=== PATIENT | female | born 1975 | race Caucasian/White ===

== ENCOUNTER 2017-12-01 18:09 | Inpatient (IN) | payer MEDICARE, MEDICAID ==
[2017-12-01] MEDS ORDERED: Ondansetron INJ* 2 MG/ML VIAL ONE (20:44)
[2017-12-01] MEDS ORDERED: Morphine INJ* 2 MG/ML 1 ML SYRINGE (TWO MG - NEW SYRINGE VERSION) ONE (20:45)
[2017-12-01] MEDS: Morphine INJ* 2 MG/ML 1 ML CARPUJECT IV ONE ×2 (20:48→21:22)
[2017-12-01] MEDS: Ondansetron INJ* 2 MG/ML VIAL IV ONE (20:48)
[2017-12-01 20:52] LABS: ABS Basophils 0.1 10^3/ul (0-0.2); ABS Eosinophils 0 10^3/ul (0-0.6); ABS Lymphocytes 1.3 10^3/ul (1.0-4.8); ABS Monocytes 0.8 10^3/ul (0-0.8); ABS Nucleated RBC 0 10^3/ul; Eosinophil % 0.3 % (0-6); Hematocrit 30 % (35-47); Hemoglobin 9.3 g/dl (12.0-16.0); Lymphocyte % 10.4 % (25-47); Mean Corpuscular HGB Conc 31 g/dl (31-36); Mean Corpuscular Hemoglobin 23 pg (27-31); Mean Corpuscular Volume 75 fL (80-97); Mean Platelet Volume 8 um3 (7.4-10.4); Nucleated Red Blood Cells % 0.1; Platelet Count 256 10^3/ul (150-450); Red Cell Distribution Width 15 % (10.5-15); White Blood Count 12.2 10^3/ul (3.5-10.8)
[2017-12-01 20:54] LABS: EGFR Non-African American 115.1 (>60)
[2017-12-01] MEDS: NS 0.9% 1000 ML* 1,000 ML IV SCH ×2 (21:23→23:05)
[2017-12-02] MEDS ORDERED: Ketorolac INJ* 30 MG/ML 1 ML VIAL IV PUSH ONE (00:03)
[2017-12-02 00:23] LABS: Urine Appearance Cloudy; Urine Blood 2+ (Negative); Urine Color Yellow; Urine Ketones Trace (Negative); Urine Protein 1+(30 mg/dL) (Negative); Urine Specific Gravity 1.022 (1.010-1.030); Urine Urobilinogen Negative (Negative)
[2017-12-02] MEDS: Ondansetron INJ* 2 MG/ML VIAL IV ONE (01:40)
[2017-12-02] MEDS ORDERED: KCL 10 MEQ/50 ML IVPREMIX* 10 MEQ/50 ML BAG IV ONE (01:46)
[2017-12-02] MEDS ORDERED: Morphine INJ* 2 MG/ML 1 ML CARPUJECT IV ONE (01:47)
[2017-12-02] MEDS ORDERED: Morphine INJ* 2 MG/ML 1 ML SYRINGE (TWO MG - NEW SYRINGE VERSION) ONE (01:57)
[2017-12-02] MEDS ORDERED: NS 0.9% 1000 ML* 1,000 ML IV SCH (02:00)
[2017-12-02] MEDS ORDERED: HYDROmorphone INJ* 2 MG/ML CARPUJECT SYRINGE IV SLOW PU ONE ×4 (02:25→10:06)
[2017-12-02] MEDS ORDERED: HYDROmorphone INJ* 1 MG/ML CARPUJECT SYRINGE ONE ×2 (02:28→13:12)
[2017-12-02] MEDS: HYDROmorphone INJ* 1 MG/ML CARPUJECT SYRINGE IV SLOW PU ONE ×2 (02:37→05:00)
[2017-12-02] MEDS ORDERED: Iohexol 300* (CONTRAST) 10 ML SDV IV ONE (03:23)
--- NOTE | 2017-12-02 06:24 | CONSULT ---
Consult Consult: Surgery Consult Asked by Dr. Sharp to evaluate a pt. with abdominal pain. Ms. Verma is a 42 y.o. female who has a h/o gastric bypass who suddenly developed abdominal pain in the middle of the night. She tried taking a bath to see if that would relieve the pain, but it didn't. The pain worsened and she couldn't take it any more. She describes it as "tremendous", constant and sharp. It started in her back and then spread to the front. She has intermittent relief with dilaudid. It is different than kidney stone pain that she has had in the past. It is associated with nausea and dry heaving, diarrhea, and dysuria. She had some blood in the stool which she attributes to hemorrhoids. She says she "can' t take this pain any more". PMHx: bipolar disorder, ADHD, h/o gastric bypass 2 years ago, she has malabsorption and is being considered for transfusions, h/o kidney stones. Meds: lamictal, clonidine, adderall, MVI, quetiapine, calcium ALL: PCN SH: neg. tob, rare EtOH, neg. IVDA FH: mother has HTN ROS: denies PE: general: WDWN female in NAD, sitting with emesis bag at the ready Vital Signs 12/01/17 12/01/17 12/01/17 18:14 19:38 19:41 Temperature 98.3 F Pulse Rate 100 60 Respiratory 22 Rate Blood Pressure 145/94 110/52 (mmHg) O2 Sat by Pulse 98 100 Oximetry 12/01/17 12/01/17 12/01/17 19:52 20:00 20:43 Temperature Pulse Rate 109 Respiratory Rate Blood Pressure 166/146 149/123 (mmHg) O2 Sat by Pulse 97 Oximetry 12/01/17 12/01/17 12/01/17 20:48 21:19 21:22 Temperature Pulse Rate Respiratory 16 22 Rate Blood Pressure 117/87 (mmHg) O2 Sat by Pulse Oximetry 12/01/17 12/01/17 12/02/17 21:30 23:00 00:11 Temperature Pulse Rate Respiratory Rate Blood Pressure 112/64 133/63 150/91 (mmHg) O2 Sat by Pulse Oximetry 12/02/17 12/02/17 12/02/17 00:13 00:22 00:30 Temperature Pulse Rate 75 66 Respiratory Rate Blood Pressure 120/57 (mmHg) O2 Sat by Pulse 99 100 Oximetry 12/02/17 12/02/17 12/02/17 01:00 02:00 02:01 Temperature Pulse Rate 62 67 74 Respiratory Rate Blood Pressure 126/80 (mmHg) O2 Sat by Pulse 100 96 96 Oximetry 12/02/17 12/02/17 12/02/17 02:03 02:31 02:37 Temperature Pulse Rate Respiratory 18 24 Rate Blood Pressure 137/74 (mmHg) O2 Sat by Pulse Oximetry 12/02/17 12/02/17 12/02/17 02:45 03:00 03:30 Temperature Pulse Rate 70 65 72 Respiratory 18 20 17 Rate Blood Pressure 141/83 131/68 (mmHg) O2 Sat by Pulse 100 100 100 Oximetry 12/02/17 12/02/17 12/02/17 04:06 04:35 05:00 Temperature Pulse Rate 65 67 92 Respiratory 18 15 20 Rate Blood Pressure 135/75 132/80 (mmHg) O2 Sat by Pulse 99 99 99 Oximetry HEENT: anicteric sclerae, pale conjunctivae, moist oral mucosa, neg. cervical adenopathy lungs: clear to ausc. heart: Reg with slight murmur abd: Good BS, soft, mild tenderness in upper abd, no guarding or rebound ext: neg. cyanosis, edema, DP pulses palpable. Laboratory Results - last 24 hr 12/01/17 12/01/17 12/01/17 20:30 20:30 23:53 WBC 12.2 H RBC 4.00 Hgb 9.3 L Hct 30 L MCV 75 L MCH 23 L MCHC 31 RDW 15 Plt Count 256 MPV 8 Neut % (Auto) 82.2 Lymph % (Auto) 10.4 L [place] % (Auto) 6.3 Eos % (Auto) 0.3 Baso % (Auto) 0.8 Absolute Neuts (auto) 10.0 H Absolute Lymphs (auto) 1.3 Absolute Monos (auto) 0.8 Absolute Eos (auto) 0 Absolute Basos (auto) 0.1 Absolute Nucleated RBC 0 Nucleated RBC % 0.1 Patient Temperature ABG pH ABG pH (Temp Correct) ABG pCO2 ABG pCO2 (Temp Corrct ABG pO2 ABG pO2 (Temp Correct ABG HCO3 ABG O2 Saturation ABG Base Excess Respiration Rate O2 Delivery Device Ventilator Type Vent Mode FiO2 Inspiratory Time PEEP Pressure Support Pressure Control EPAP IPAP BiPAP Sodium 134 Potassium 3.5 Chloride 105 Carbon Dioxide 17 L Anion Gap 12 H BUN 15 Creatinine 0.58 Est GFR ( Amer) 148.1 Est GFR (Non-Af Amer) 115.1 BUN/Creatinine Ratio 25.9 H Glucose 227 H Lactic Acid Calcium 9.0 Total Bilirubin 0.40 AST 17 ALT 12 Alkaline Phosphatase 89 Total Protein 6.9 Albumin 3.9 Globulin 3.0 Albumin/Globulin Ratio 1.3 Amylase 58 Lipase 41 Urine Color Yellow Urine Appearance Cloudy Urine pH 5.0 Ur Specific [place] 1.022 Urine Protein 1+(30 mg/dl) H Urine Ketones Trace H Urine Blood 2+ H Urine Nitrate Negative Urine Bilirubin Negative Urine Urobilinogen Negative Ur Leukocyte Esterase Trace H Urine WBC (Auto) Trace(0-5/hpf) Urine RBC (Auto) Absent Ur Squamous Epith Cells Present H Urine Bacteria Absent Urine Glucose 3+(>=500 mg/dl) H Urine Ascorbic Acid * H 12/02/17 12/02/17 12/02/17 03:04 05:42 06:12 WBC RBC Hgb Hct MCV MCH MCHC RDW Plt Count MPV Neut % (Auto) Lymph % (Auto) [place] % (Auto) Eos % (Auto) Baso % (Auto) Absolute Neuts (auto) Absolute Lymphs (auto) Absolute Monos (auto) Absolute Eos (auto) Absolute Basos (auto) Absolute Nucleated RBC Nucleated RBC % Patient Temperature Not Reportable ABG pH 7.35 ABG pH (Temp Correct) Not Reportable ABG pCO2 35 ABG pCO2 (Temp Corrct Not Reportable ABG pO2 153 H ABG pO2 (Temp Correct Not Reportable ABG HCO3 20.5 ABG O2 Saturation 99.5 H ABG Base Excess -5.7 L Respiration Rate Not Reportable O2 Delivery Device nasal cannula Ventilator Type Not Reportable Vent Mode Not Reportable FiO2 37 Inspiratory Time Not Reportable PEEP Not Reportable Pressure Support Not Reportable Pressure Control Not Reportable EPAP Not Reportable IPAP Not Reportable BiPAP Not Reportable Sodium Potassium Chloride Carbon Dioxide Anion Gap BUN Creatinine Est GFR ( Amer) Est GFR (Non-Af Amer) BUN/Creatinine Ratio Glucose Lactic Acid 2.1 H* 1.3 Calcium Total Bilirubin AST ALT Alkaline Phosphatase Total Protein Albumin Globulin Albumin/Globulin Ratio Amylase Lipase Urine Color Urine Appearance Urine pH Ur Specific [place] Urine Protein Urine Ketones Urine Blood Urine Nitrate Urine Bilirubin Urine Urobilinogen Ur Leukocyte Esterase Urine WBC (Auto) Urine RBC (Auto) Ur Squamous Epith Cells Urine Bacteria Urine Glucose Urine Ascorbic Acid A/P: 42 y.o. female with abdominal pain out of proportion to exam and a CT with suggestion of mesenteric occlusion. She has confounding factor in the h/o kidney stones, but with these findings, intestinal ischemia must be ruled out and managed. Interventional radiology is needed to optimize blood flow to small bowel. As our local interventional radiology is reportedly unavailable, she will need transfer. I discussed with Dr. Sharp. Mian
--- NOTE | 2017-12-02 06:55 | ED ---
Naeem Zuniga Natalie, scribed for Turner Sharp MD on 12/01/17 at 2101 . Abdominal Pain/Female - HPI Summary HPI Summary: The pt is a 42 y/o F presenting to the ED c/o bilateral flank pain starting today. The pain radiates to her back. The pain is described as "pain all over." The pain is rated 10/10. The pain is aggravated by movement and lying on her back. The pain is alleviated by lying on her stomach. The patient has treated the pain with [employer]. Pt additionally c/o nausea, vomiting, normal BM, and dark urine (for two weeks). She has PSHx of gastric bypass. Her LNMP ended recently, and her last two cycles have been normal. - History of Current Complaint Chief Complaint: EDFlankPain Stated Complaint: FLANK PAIN Time Seen by Provider: 12/01/17 20:17 Hx Obtained From: Patient Onset/Duration: Sudden Onset, Lasting Hours, Still Present Timing: Constant Severity Initially: Severe Severity Currently: Severe Pain Intensity: 10 Pain Scale Used: 0-10 Numeric Location: Flank - bilateral Radiates: Yes Radiates to: Back Aggravating Factor(s): Movement, Other: - lying on back Alleviating Factor(s): Position - lying on stomach Associated Signs and Symptoms: Positive: Back Pain, Urinary Symptoms - dark urine, Nausea, Vomiting, Other: - normal BM Allergies/Adverse Reactions: Allergies Allergy/AdvReac Type Severity Reaction Status Date / Time Penicillin G Allergy Severe Anaphylatic Verified 10/28/15 06:24 Shock Cephalexin [From Keflex] Allergy Unknown Unknown Verified 10/28/15 06:24 Reaction Details Penicillins [PCN] Allergy Unknown Verified 11/01/15 10:40 Reaction Details PMH/Surg Hx/FS Hx/Imm Hx Previously Healthy: No Endocrine/Hematology History: Denies: Hx Diabetes Cardiovascular History: Reports: Hx Hypertension Denies: Hx Pacemaker/ICD Respiratory History: Denies: Hx Asthma GI History: Reports: Hx Gastroesophageal Reflux Disease, Other GI Disorders - RECENTLY TREATED FOR H PYLORI-09/2015 History: Reports: Hx Kidney Stones Denies: Hx Dialysis, Hx Renal Disease Sensory History: Reports: Hx Contacts or Glasses Denies: Hx Hearing Aid Opthamlomology History: Reports: Hx Contacts or Glasses Neurological History: Reports: Other Neuro Impairments/Disorders - BIPOLAR Psychiatric History: Reports: Hx Anxiety, Hx Attention Deficit Hyperactivity Disorder, Hx Depression, Hx Bipolar Disorder, Other Psychiatric Issues/ Disorders - bipolar Denies: Hx Panic Disorder - Surgical History Surgery Procedure, Year, and Place: GASTRIC BYPASS 10/28/15, TUBES TIED, JOHN, HERNIA REPAIR, Hx Anesthesia Reactions: No - Immunization History Date of Tetanus Vaccine: UTD per pt Infectious Disease History: No Infectious Disease History: Denies: Traveled Outside the [place] in Last 30 Days - Family History Known Family History: Positive: Hypertension Negative: Cardiac Disease - Social History Alcohol Use: Occasionally Substance Use Type: Reports: None Smoking Status (MU): Never Smoked Tobacco Review of Systems Gastrointestinal: Other - normal BM Positive: Abdominal Pain, Vomiting, Nausea Genitourinary: Other - dark urine Positive: Other - back pain All Other Systems Reviewed And Are Negative: Yes Physical Exam - Summary Physical Exam Summary: Appearance: Well-appearing, Well-nourished Skin: Warm, Dry, No rash Eyes: Normal, PERRL, EOMI, sclera anicteric ENT: Normal Neck: Supple, nontender Respiratory: Clear to auscultation Cardiovascular: S1, S2, no murmur, no rub, no gallop Abdomen: Soft, nontender, no organomegaly Triage Information Reviewed: Yes Vital Signs On Initial Exam: Initial Vitals Temp Pulse Resp BP Pulse Ox 98.3 F 100 22 145/94 98 12/01/17 18:14 12/01/17 18:14 12/01/17 18:14 12/01/17 18:14 12/01/17 18:14 Vital Signs Reviewed: Yes Abdomen Description: Positive: Soft, Other: - tender diffusely without rebound or rigidity - Mary Kate Coma Scale Coma Scale Total: 15 Diagnostics - Vital Signs Vital Signs Temp Pulse Resp BP Pulse Ox 12/01/17 18:14 98.3 F 100 22 145/94 98 - Laboratory Lab Results: Lab Results 12/01/17 Range/Units 20:30 WBC 12.2 H (3.5-10.8) 10^3/ul RBC 4.00 (4.0-5.4) 10^6/ul Hgb 9.3 L (12.0-16.0) g/dl Hct 30 L (35-47) % MCV 75 L (80-97) fL MCH 23 L (27-31) pg MCHC 31 (31-36) g/dl RDW 15 (10.5-15) % Plt Count 256 (150-450) 10^3/ul MPV 8 (7.4-10.4) um3 Neut % (Auto) 82.2 (38-83) % Lymph % (Auto) 10.4 L (25-47) % [place] % (Auto) 6.3 (1-9) % Eos % (Auto) 0.3 (0-6) % Baso % (Auto) 0.8 (0-2) % Absolute Neuts (auto) 10.0 H (1.5-7.7) 10^3/ul Absolute Lymphs (auto) 1.3 (1.0-4.8) 10^3/ul Absolute Monos (auto) 0.8 (0-0.8) 10^3/ul Absolute Eos (auto) 0 (0-0.6) 10^3/ul Absolute Basos (auto) 0.1 (0-0.2) 10^3/ul Absolute Nucleated RBC 0 10^3/ul Nucleated RBC % 0.1 Result Diagrams: 12/01/17 20:30 12/01/17 20:30 ABG Interpretation: metabolic acidosis with partial respiratory compensation Lab Statement: Any lab studies that have been ordered have been reviewed, and results considered in the medical decision making process. - CT Abdomen/Pelvis CT CT Interpretation: Positive (See Comments) - 14 mm nonobstructing left renal stone is unchanged. Midabdominal mesenteric edema and venous engorgement is nonspecific, but venous stasis or thrombosis is possible and further evaluation with contrast should be considered. ED physician has reviewed this report. CT Interpretation Completed By: Radiologist Abdoment/Pelvis CT CT Interpretation: Positive (See Comments) - Contrast mixing artifact versus dissection flap in superior mesenteric artery. Additional segmental narrowing or thrombosis in a left-sided brance. No obvious mesenteric vein thrombosis, but an upper branch of the superior mesenteric vein is not well seen and may be small caliber, possibly related to its tortuos course. Alternatively, mesenteric vein thrombosis (acute or chronic) is difficult to exclude. Three left lower quadrant mesenteric veins that fill unevenly on the venous phase images appear more opacifed on the delayed images, possibly related to the swirling of mesenteric structures in mid left abdomen. Left lower quadrant mesenteric edema persists, similar to the noncontrast CT from 01:11 hours. No pneumatosis or bowel wall thickening. Further evaluation with conventional angiography/venography may be useful. No nephrolithiasis, ureterolithiasis or obstructive uropathy. No bladder calculi. Unremarkable pancreas and gallbladder. Gastric bypass. No bowel obstruction, colitis, or free air. Normal portion of appendix seen. Surigcal clip and trace free fluid left adnexa. ED physician has reviewed this report. CT Interpretation Completed By: Radiologist Re-Evaluation - Re-Evaluation Second Eval Re-Evaluation Time: 03:00 Change: Worse - persistent abdominal pain, requiring multiple doses of iv dilaudid Abdominal Pain Fem Course/Dx - Course Course Of Treatment: In the ED course the patient was given Morphine, Ondansetron, and IV fluids. Bloodwork shows lactic acid of 2.1. UA shows +1 protein, +2 blood, and presence of epithelial cells. Abdomen/Pelvis CT shows evidence of staghorn calculus. Abdomen/Pelvis CT with contrast shows evidence of continued mesentery edema, no clot, not as clear as it could be. Patient pending - Diagnoses Provider Diagnoses: Abdominal pain, mesentery venous vs arterial thrombosis, mesenteric edema Discharge - Discharge Plan Condition: Fair Disposition: TRANS HIGHER LVL OF CARE FAC Referrals: Bre Boyer, MEDICAL MANAGER [Primary Care Provider] - The documentation as recorded by the Naeem vergara Natalie accurately reflects the service I personally performed and the decisions made by , Turner Sharp MD.
[2017-12-02] MEDS ORDERED: Ondansetron INJ* 2 MG/ML VIAL ONE ×3 (08:55→14:22)
[2017-12-02] MEDS ORDERED: Ondansetron INJ* 2 MG/ML VIAL IV ONE (08:55)
--- NOTE | 2017-12-02 08:58 | RAD ---
Indication: Hematuria, back pain. CT of the abdomen and pelvis was performed without oral or IV contrast administration. Coronal and sagittal reconstructed images were obtained. Comparison is made with previous exam dated July 02, 2015. Lung bases demonstrate no pleural fluid, nodules or masses. Heart is of normal size without evidence of pericardial effusion. Liver is normal in size. No focal lesions or intrahepatic duct dilatation is noted. The gallbladder demonstrates cholecystectomy. Pancreas demonstrates no mass or pancreatic duct dilatation. Spleen is normal in size. No adrenal lesions are noted. The kidneys demonstrate no hydronephrosis. Nonspecific edema is noted in the mesentery. The colon is filled with stool. No retroperitoneal adenopathy is noted. The uterus and ovaries are unremarkable. IMPRESSION: No evidence of obstructive uropathy is noted. Nonspecific mesenteric edema is noted. No bowel obstruction is noted.
[2017-12-02 09:13] LABS: Hematocrit 30 % (35-47); Hemoglobin 9.5 g/dl (12.0-16.0); Mean Corpuscular HGB Conc 31 g/dl (31-36); Mean Corpuscular Hemoglobin 24 pg (27-31); Mean Corpuscular Volume 75 fL (80-97); Mean Platelet Volume 8 um3 (7.4-10.4); Platelet Count 247 10^3/ul (150-450); Red Blood Count 4.05 10^6/ul (4.0-5.4); Red Cell Distribution Width 15 % (10.5-15); White Blood Count 14.6 10^3/ul (3.5-10.8)
--- NOTE | 2017-12-02 09:24 | RAD ---
Indication: Abdominal pain. Contrast: Administered 72.0 ml of OMNIPAQUE 300 mg/ml CT of the abdomen and pelvis was performed after IV contrast administration. Coronal and sagittal reconstructed images were obtained. The lung bases demonstrate no pleural fluid, nodules or masses. Heart is of normal size without evidence of pericardial effusion. The liver is normal in size. No focal lesions or intrahepatic duct dilatation is noted. The gallbladder has been resected. The common duct is not dilated. The pancreas indicates no mass or pancreatic duct dilatation. Spleen is normal in size. The patient is status post gastric bypass surgery. No adrenal lesions are noted. The kidneys demonstrate symmetric nephrograms without hydronephrosis Evaluation of the superior mesenteric artery demonstrates thrombus or narrowing of the superior mesenteric artery. This is best noted on image 141 is 364 on the axial images and image 33 of 86 on the coronal images. The distal superior mesenteric artery however is patent. There is some mesenteric edema in the left lower quadrant. I cannot totally exclude the possibility of an internal hernia. Additionally there appears to be a patent portal vein. There is an abrupt change of caliber of the superior mesenteric vein at the level where there is a filling defect in the superior mesenteric artery. This would further support the possibility of an internal hernia. The small bowel demonstrates no abnormal dilatation. No definite evidence of bowel obstruction is noted although fluid is noted throughout the colon. No abnormal adenopathy is noted. The uterus and ovaries are otherwise unremarkable. IMPRESSION: There is a filling defect or narrowing in the superior mesenteric artery best identified on the coronal image #33. In addition there is an abrupt change of caliber in the superior mesenteric vein at this level. The possibility of an internal hernia should be considered. Mesenteric edema is noted. No definite evidence of a bowel obstruction is noted however. The patient status post gastric bypass surgery. Findings discussed with Dr. Perez at 9:18 AM.
[2017-12-02 09:28] LABS: EGFR Non-African American 136.6 (>60)
[2017-12-02 09:31] LABS: ABS Basophils 0 10^3/ul (0-0.2); ABS Eosinophils 0 10^3/ul (0-0.6); ABS Lymphocytes 0.5 10^3/ul (1.0-4.8); ABS Monocytes 1.6 10^3/ul (0-0.8); ABS Neutrophils 12.5 10^3/ul (1.5-7.7); ABS Nucleated RBC 0 10^3/ul; Eosinophil % 0 % (0-6); Lymphocyte % 3.7 % (25-47); Nucleated Red Blood Cells % 0
[2017-12-02] MEDS ORDERED: NS 0.9% 1000 ML* 1,000 ML IV ONE (10:22)
[2017-12-02] MEDS ORDERED: fentaNYL* 50 MCG/ML 2 ML VIAL (100 MCG VIAL) IV SLOW PU ONE (10:39)
[2017-12-02] MEDS ORDERED: Clindamycin 900 MG IVPREMIX(* 900 MG/50 ML SDV IV ONE (11:00)
[2017-12-02] MEDS ORDERED: Lidocaine 2% PF * 5 ML VIAL ONE (11:01)
[2017-12-02] MEDS ORDERED: Midazolam* 1 MG/ML 10 ML VIAL (10 MG) ONE (11:01)
[2017-12-02] MEDS ORDERED: KETAMINE HCL* 50 MG/ML 10 ML VIAL ONE (11:01)
[2017-12-02] MEDS ORDERED: Dexamethasone IV* 4 MG/ML 1 ML (4 MG) ONE (11:01)
[2017-12-02] MEDS ORDERED: fentaNYL* 50 MCG/ML 2 ML VIAL (100 MCG VIAL) ONE ×2 (11:01→14:28)
[2017-12-02] MEDS ORDERED: Propofol* 10 MG/ML 20 ML BTL IV PUSH ONE (11:01)
[2017-12-02] MEDS ORDERED: Ketorolac INJ* 30 MG/ML 1 ML VIAL ONE (11:01)
[2017-12-02] MEDS ORDERED: Cisatracurium* 2 MG/ML MDV 5 ML ONE (11:02)
[2017-12-02] MEDS ORDERED: ED ONCE IVPB ONE (11:30)
[2017-12-02] MEDS ORDERED: CIPROFLOXACIN 400 MG IVPB ONE (11:30)
--- NOTE | 2017-12-02 11:35 | CONSULT ---
Consult Consult: Asked to see pt by Dr. Wheeler. She is s/p LRYGB by Dr. Whitley 2 yrs ago with > 100 lb wt loss. She was recently seen at [facility] for routine f/u on 11/21/17 and was doing well aside from RISA. Last night she developed sudden onset of severe abdominal pain with nausea and came to the ED. She has had CT abd/pelvis which I reviewed and this shows vascular abnormalities in the mesentery that are concerning for internal hernia, not for a primary vascular issue. She needs emergent surgery to further evaluate and treat. Plan is for laparoscopy, possible laparotomy, for reduction and repair of internal hernia. I d/w the patient the nature of the procedure, indications, risks, benefits, and alternatives. Risks explained including, not limited to, bleeding, infection, pain, scarring, blood clots, pneumonia, visceral injury, and the risks of GETA. I also explained that findings will dictate the surgical procedure and may include bowel resection or additional surgeries. She had all questions answered, stated understanding, and agrees to proceed.
[2017-12-02] MEDS ORDERED: Bupivacaine 0.25% SDV* 30 ML ONE (11:36)
[2017-12-02] MEDS ORDERED: Famotidine IV* 10 MG/ML 2 ML (20 mg) ONE (12:03)
[2017-12-02] MEDS ORDERED: Phenylephrine IV* 40 MCG/ML 10 ML SYRINGE ONE (12:14)
[2017-12-02] MEDS ORDERED: Phenylephrine 1% NASAL* 15 ML BOT ONE (12:39)
[2017-12-02] MEDS ORDERED: Glycopyrrolate IV* 0.2 MG/ML 1 ML VIAL ONE (13:13)
[2017-12-02] MEDS ORDERED: Neostigmine Methylsulfate* 2 MG/2 ML SYRINGE ONE (13:13)
--- NOTE | 2017-12-02 13:30 | BRIEFOPN ---
Brief Operative Note - Surgery Procedures: PREOP/POSTOP DX: INTERNAL HERNIA S/P GASTRIC BYPASS PROC: LAPAROSCOPY/LAPAROTOMY REDUCTION AND REPAIR OF INTERNAL HERNIAS WITH EDDIE SURG: MECENAS ASSIST: SUNNI ANES: GET/TOAL EBL: 50ML IVF: 1 L CRYSTALLOID SPEC: NONE DRAIN: NONE COMPL: NONE COND: STABLE TO RR ; EXTUBATED.
[2017-12-02] MEDS ORDERED: Ondansetron INJ* 2 MG/ML VIAL IV PRN (13:35)
[2017-12-02] MEDS ORDERED: Naloxone* 0.4 MG/ML 1 ML VIAL IV PRN (13:35)
[2017-12-02] MEDS ORDERED: fentaNYL* 50 MCG/ML 2 ML VIAL (100 MCG VIAL) IV PRN (13:35)
[2017-12-02] MEDS ORDERED: Morphine PCA ADULT* 5 MG/ML 30 ML PCA SCH (14:00)
[2017-12-02] MEDS: Ketorolac INJ* 30 MG/ML 1 ML VIAL IV PRN (21:52)
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
[2017-12-03] MEDS: HYDROmorphone PCA* 20 MG/20 ML PCA.SYRING PCA SCH (02:32)
--- NOTE | 2017-12-03 02:59 | OP ---
CC: [facility]; Bre Boyer NP * DATE OF OPERATION: 12/02/17 - ROOM #351 DATE OF : 79 SURGEON: John Ohara MD VENEER MEASURER: Dr. Wheeler ANESTHESIOLOGIST: Dr. Israel ANESTHESIA: General endotracheal. PRE-OP DIAGNOSIS: Internal hernia, status post gastric bypass with intestinal ischemia. POST-OP DIAGNOSIS: Internal hernia, status post gastric bypass with intestinal ischemia. OPERATIVE PROCEDURE: Diagnostic laparoscopy, laparotomy with reduction and repair of internal hernias x2, and lysis of adhesions. ESTIMATED BLOOD LOSS: 50 mL. IV FLUIDS: 1 L crystalloid. SPECIMEN: None. DRAIN: None. COMPLICATION: None. COUNTS: Instrument, needle, and sponge counts were correct. OPERATIVE INDICATIONS: This is a 42-year-old female, two years status post laparoscopic Cm-en-Y gastric bypass, who presented to the [facility] Emergency Department with acute onset of abdominal pain of worsening severity associated with nausea. She was evaluated with CT scan without contrast and subsequently CT scan with IV contrast, which demonstrated findings of internal hernia with narrowing of the SMA. The patient was brought emergently to the operating room. DESCRIPTION OF PROCEDURE: The patient was brought to the operating room and placed on the table supine. Sequential compression devices were placed on both lower extremities. General anesthesia was administered. Intra-venous antibiotics were administered. A Juarez catheter was placed. She was positioned and padded appropriately. She was prepped and draped in usual sterile fashion. Time-out was performed. Open technique was used to access the peritoneal cavity through an infraumbilical incision and an 11-mm trocar was placed and carbon dioxide insufflated to a pressure of 15 mmHg. Additional trocars were placed in the right mid abdomen and lower midline. Inspection revealed evidence of internal hernia with some mildly ischemic-looking small intestine which was in the right lower quadrant. The cecum was identified and the appendix which both appeared normal. Ligament of Treitz was tensely drawn beneath the mesentery and there appeared to be twisting of the mesentery upon itself. A gentle traction on the terminal ileum failed to reduce any bowel and therefore, the decision was made to convert to laparotomy. Midline laparotomy was undertaken and retractors were placed. There appeared to be a clockwise twist through the retro alimentary limb; however, there also appeared to be a herniation through a mesenteric defect at the jejunojejunostomy. The latter of the these was reduced first and subsequently, the retro alimentary limb hernia reduced until all the bowel was in its expected position. At this point, the bowel was observed and the bowel all returned to a pink and well perfused color. A nasoenteric tube was temporarily placed to evacuate any fluid from the Cm limb. Next, a closure was performed of the 2 hernia defects with interrupted 3-0 silks closing the peritoneum at each site. Irrigation was performed until clear. Of note, there were some adhesions of omentum to the small bowel in the left upper quadrant that had been lysed during the course of the procedure. Otherwise, there were few adhesions noted within the abdomen. The fascia was closed with a #1 Stratafix PDS running. Subcutaneous tissues were irrigated and suzan were used to close the skin. Dressings were applied. The patient tolerated the procedure well, was extubated, and transferred to Recovery in stable condition. [id number]/[facility] #: [id number] FARHAN
[2017-12-03 05:44] LABS: ABS Basophils 0 10^3/ul (0-0.2); ABS Eosinophils 0 10^3/ul (0-0.6); ABS Lymphocytes 1.2 10^3/ul (1.0-4.8); ABS Monocytes 1.4 10^3/ul (0-0.8); ABS Nucleated RBC 0 10^3/ul; Eosinophil % 0.2 % (0-6); Hematocrit 28 % (35-47); Hemoglobin 9.2 g/dl (12.0-16.0); Mean Corpuscular HGB Conc 33 g/dl (31-36); Mean Corpuscular Hemoglobin 24 pg (27-31); Mean Corpuscular Volume 74 fL (80-97); Mean Platelet Volume 8 um3 (7.4-10.4); Nucleated Red Blood Cells % 0; Platelet Count 202 10^3/ul (150-450); Red Blood Count 3.79 10^6/ul (4.0-5.4); Red Cell Distribution Width 15 % (10.5-15); White Blood Count 8.7 10^3/ul (3.5-10.8)
[2017-12-03 05:59] LABS: EGFR Non-African American 115.1 (>60)
--- NOTE | 2017-12-03 10:42 | PN ---
Progress Note - Progress Note Date of Service: 12/03/17 Note: POD#1 s/p laparotomy for internal hernia with torsion Afeb. VS OK \ UO adequate, I>O Thirsty, NO N/V, no flatus Pain control much better on Dilaudid SLAT BASKET TOP MAKER Breathing easy unlabored Abd soft sore, small drainage on dressing, few BS Cont SLAT BASKET TOP MAKER start liquids, advance when able decrease IVF
[2017-12-03] MEDS: PROCHLORPERAZINE INJ 5 MG/ML 2 ML VIAL IV PRN (13:41)
[2017-12-03] MEDS: Ketorolac INJ* 30 MG/ML 1 ML VIAL IV PRN (19:19)
[2017-12-04] MEDS: Ketorolac INJ* 30 MG/ML 1 ML VIAL IV PRN ×4 (01:16→20:42)
[2017-12-04] MEDS: HYDROcodone/ACET. 7.5/325 LIQ* 15 ML UDC PO PRN ×3 (10:11→20:41)
--- NOTE | 2017-12-04 12:10 | PN ---
Progress Note - Progress Note Date of Service: 12/04/17 SOAP: Subjective: Patient seen and examined at bedside. Reports feeling better today. Pain is under control using her DEPUTY FIRE CHIEF. Denies nausea or vomiting. Tolerating full liquids. Bowel movement yesterday. No fever or chills. Objective: Awake and alert, comfortable in bed Vitals reviewed, Tmax 100.0 Lungs CTA bilat Heart RRR Abdomen soft, NT, ND. Incisions C/D/I. No guarding or rigidity. Bowel sounds active. I/O's noted Assessment: POD#2, s/p laparotomy with EDDIE and repair of internal hernia x2 Plan: Diet already advanced Ambulate as tolerated Hx mal-absorption syndrome s/p RYGB 2 years ago, ? TPN or PPN Anemia or chronic disease, hemodynamically stable
[2017-12-04] MEDS ORDERED: QUEtiapine TAB* 100 MG PO PRN (12:54)
[2017-12-04] MEDS ORDERED: Calcium Carbonate CHEW TAB* 500 MG (TUMS) PO PRN (12:54)
[2017-12-04] MEDS ORDERED: BUSPIRONE 10 MG PO PRN (16:24)
[2017-12-04] MEDS ORDERED: VITAMIN D PO PRN (17:00)
[2017-12-04] MEDS ORDERED: CALCIUM 250 MG PO PRN (17:00)
[2017-12-04] MEDS: BIOTIN PO SCH (17:15)
[2017-12-04] MEDS: ASCORBIC ACID PO SCH (17:15)
[2017-12-04] MEDS: CYANOCOBALAMIN PO SCH (17:16)
[2017-12-04] MEDS: [UNRECOGNIZED DRUG - OTHER] PO SCH (17:16)
[2017-12-04] MEDS: ARIPIPRAZOLE 2 MG PO SCH (17:17)
[2017-12-04] MEDS: QUETIAPINE 300 MG PO SCH (20:37)
[2017-12-04] MEDS: CLONIDINE 0.1 MG PO SCH (20:37)
[2017-12-04] MEDS: LAMOTRIGINE 150 MG PO SCH (20:38)
[2017-12-04] MEDS: Ciprofloxacin TAB* 500 MG PO SCH (20:39)
[2017-12-04] MEDS ORDERED: lamoTRIgine TAB(*) 100 MG PO SCH (21:00)
[2017-12-05] MEDS: HYDROcodone/ACET. 7.5/325 LIQ* 15 ML UDC PO PRN ×2 (05:53→09:43)
[2017-12-05] MEDS: Ketorolac INJ* 30 MG/ML 1 ML VIAL IV PRN ×2 (05:54→13:23)
[2017-12-05] MEDS: Amphetamine MIXED SALT TAB* 10 MG TAB PO SCH ×2 (07:37→13:12)
[2017-12-05] MEDS ORDERED: CHOLECALCIFEROL PO SCH (09:00)
[2017-12-05] MEDS ORDERED: [UNRECOGNIZED DRUG - OTHER] PO SCH (09:00)
--- NOTE | 2017-12-05 09:13 | RAD ---
HISTORY: Left flank pain COMPARISONS: CT dated December 02, 2017 TECHNIQUE: Multiple transverse and longitudinal ultrasound images were obtained of the left kidney using grayscale and color Doppler imaging. FINDINGS: RIGHT KIDNEY: No images are submitted of the right kidney LEFT KIDNEY: The left kidney is normal in shape, size, contour, and echogenicity. The left renal calcification versus milk of calcium noted on the previous CT examination is not well-visualized on the current examination.. There is no hydronephrosis or nephrolithiasis. The left kidney measures 10.5 x 5.7 x 5.5 cm. BLADDER: No images are submitted of the bladder. AORTA AND IVC: No images are submitted of the vasculature. RETROPERITONEUM: Unremarkable. OTHER: None. IMPRESSION: NO LEFT HYDRONEPHROSIS. THE CALCIFICATION NOTED ON THE PREVIOUS CT EXAMINATION IS NOT WELL-VISUALIZED ON THE SUBMITTED IMAGES OF THE CURRENT EXAMINATION
[2017-12-05] MEDS: CLONIDINE 0.1 MG PO SCH ×2 (09:32→21:13)
[2017-12-05] MEDS: LAMOTRIGINE 150 MG PO SCH ×2 (09:32→21:20)
[2017-12-05] MEDS: BIOTIN PO SCH (09:45)
[2017-12-05] MEDS: ARIPIPRAZOLE 2 MG PO SCH (09:45)
[2017-12-05] MEDS: [UNRECOGNIZED DRUG - OTHER] PO SCH (09:47)
[2017-12-05] MEDS: CYANOCOBALAMIN PO SCH (09:47)
[2017-12-05] MEDS: ASCORBIC ACID PO SCH (09:48)
[2017-12-05] MEDS: Ciprofloxacin TAB* 500 MG PO SCH ×2 (09:49→21:13)
--- NOTE | 2017-12-05 09:50 | PN ---
Progress Note - Progress Note Date of Service: 12/05/17 SOAP: Subjective: Pt david dn examined. C/o b/l flank pain/back pain, radiating to lower abdomen. minimal appetite. ambulating. some hesitancy with voiding (since Monday). Loose BMs Objective: af HR 80-90s SBP: 90s a and ox3 lungs clear abdo: soft/ ND/ tendera t lower abdo staple line intact hyperactive BS no calf tenderness L renal U/s: no hydro Assessment: continued abdo pain, back pain POD 3 ex lap, repair of internal hernia POst op pain vs kidney stone vs pancreatitis Anemia Plan: labs liquids for now pain control strict I/Os restart MVi, Fe
[2017-12-05 11:07] LABS: ABS Basophils 0 10^3/ul (0-0.2); ABS Eosinophils 0 10^3/ul (0-0.6); ABS Lymphocytes 0.5 10^3/ul (1.0-4.8); ABS Monocytes 0.1 10^3/ul (0-0.8); ABS Neutrophils 3.4 10^3/ul (1.5-7.7); ABS Nucleated RBC 0 10^3/ul; Eosinophil % 0.7 % (0-6); Hematocrit 27 % (35-47); Hemoglobin 8.4 g/dl (12.0-16.0); Lymphocyte % 13.1 % (25-47); Mean Corpuscular HGB Conc 32 g/dl (31-36); Mean Corpuscular Hemoglobin 23 pg (27-31); Mean Corpuscular Volume 74 fL (80-97); Mean Platelet Volume 8 um3 (7.4-10.4); Nucleated Red Blood Cells % 0; Platelet Count 169 10^3/ul (150-450); Red Blood Count 3.59 10^6/ul (4.0-5.4); Red Cell Distribution Width 16 % (10.5-15); White Blood Count 4.1 10^3/ul (3.5-10.8)
[2017-12-05 11:27] LABS: EGFR Non-African American 127.8 (>60)
[2017-12-05] MEDS ORDERED: HYDROmorphone INJ* 2 MG/ML CARPUJECT SYRINGE ONE (11:56)
[2017-12-05] MEDS ORDERED: Potassium Chloride LIQUID* 20 MEQ PACKET PO SCH (12:00)
[2017-12-05] MEDS: KCL 10 MEQ/50 ML IVPREMIX* 10 MEQ/50 ML BAG IV SCH ×2 (12:05→14:47)
[2017-12-05] MEDS: HYDROmorphone INJ* 2 MG/ML CARPUJECT SYRINGE IV SLOW PU PRN ×2 (13:22→17:03)
--- NOTE | 2017-12-05 16:29 | RAD ---
INDICATION: Tachypnea COMPARISON: Most recent comparison chest x-rays dated October 19, 2015 TECHNIQUE: PA and lateral views of the chest were obtained. FINDINGS: The heart and mediastinum are normal in size and contour. The lungs are grossly clear. There is no evidence of large pleural effusion. Visualized bones are normal for the patient's age. Beneath the left hemidiaphragm there are loops of small bowel measuring up to 4 cm in diameter. There is no definite free intraperitoneal air is seen beneath the diaphragm. IMPRESSION: 1. NO RADIOGRAPHIC EVIDENCE OF ACUTE CARDIOPULMONARY DISEASE. 2. BELOW THE LEFT HEMIDIAPHRAGM THERE ARE DILATED LOOPS OF SMALL BOWEL MEASURING UP TO 4 CM IN DIAMETER.
[2017-12-05] MEDS: PROCHLORPERAZINE INJ 5 MG/ML 2 ML VIAL IV PRN (17:03)
[2017-12-05 17:31] LABS: Monocytes % 10 % (0-13)
[2017-12-05 17:32] LABS: Hematocrit 29 % (35-47); Hemoglobin 9.2 g/dl (12.0-16.0); Mean Corpuscular HGB Conc 32 g/dl (31-36); Mean Corpuscular Hemoglobin 23 pg (27-31); Mean Corpuscular Volume 74 fL (80-97); Mean Platelet Volume 8 um3 (7.4-10.4); Platelet Count 211 10^3/ul (150-450); Red Blood Count 3.92 10^6/ul (4.0-5.4); Red Cell Distribution Width 15 % (10.5-15); White Blood Count 10.7 10^3/ul (3.5-10.8)
--- NOTE | 2017-12-05 17:37 | RAD ---
INDICATION: Abdominal pain COMPARISON: CT abdomen pelvis dated December 02, 2017 which demonstrated fluid-filled loops of small bowel measuring up to 2.3 cm in diameter. TECHNIQUE: 2 views the abdomen were obtained. FINDINGS: Post surgical changes include skin suzan overlying the midline abdomen as well as surgical clips scattered throughout the abdomen. There are dilated air-filled loops of small bowel predominantly in the left and left upper quadrant measuring up to 5.5 cm in diameter. There is a paucity of gas and stool overlying the expected location of the distal colon and rectum. There is no definite free intraperitoneal air. IMPRESSION: AIR-FILLED DILATED LOOPS OF SMALL BOWEL MEASURE UP TO 5.5 CM IN DIAMETER, WORSE WHEN COMPARED TO THE DECEMBER 02, 2017 CT OF THE ABDOMEN AND PELVIS.
[2017-12-05] MEDS ORDERED: KCL 10 MEQ/50 ML IVPREMIX* 10 MEQ/50 ML BAG IV ONE (17:50)
--- NOTE | 2017-12-05 18:11 | PN ---
Progress Note - Progress Note Date of Service: 12/05/17 Note: She has continued bilateral flank pain radiating around to lower abdomen. Left> right. She has had nausea and emesis x1 (breakfast food). She is not passing flatus/stool but she was yesterday. She has h/o kidney stones and reports current pain is similar. Renal US was negative for hydronephrosis. Urine cx was +E. coli, resistant to cipro and she is allergic to PCN. CXR and AXR showed dilated SB loops. Hospitalist consult is pending. I d/w patient and will check CT abd/pel with po/iv contrast to better evaluate possible SBO vs ileus. I d/w Dr. Rosa who recommended starting Gentamycin at 2mg/kg load then per Pharmacy. She could then go home on Bactrim and f/u with him as out pt.
[2017-12-05] MEDS ORDERED: Gentamicin ADULT per pharmacy 1 NOTE MISC FOLLOW UP PRN (18:29)
[2017-12-05] MEDS ORDERED: GENTAMICIN ADULT IVPB ONE (18:45)
[2017-12-05] MEDS ORDERED: NS 0.9% IVPB ONE (18:45)
[2017-12-05] MEDS ORDERED: Iodixanol* (CONTRAST) 320 MG/ML 100 ML SDV IV ONE (20:20)
[2017-12-05] MEDS: Magnesium Sulf 4 GM/100 ML IV* 4,000 MG/100 ML BAG IVPB ONE (21:15)
[2017-12-05] MEDS: QUETIAPINE 300 MG PO SCH (21:20)
[2017-12-05] MEDS ORDERED: fentaNYL* 50 MCG/ML 2 ML VIAL (100 MCG VIAL) ONE (21:44)
[2017-12-05] MEDS ORDERED: Midazolam* 1 MG/ML 2 ML VIAL (2 MG) ONE (21:45)
[2017-12-05] MEDS ORDERED: Ketorolac INJ* 30 MG/ML 1 ML VIAL ONE (21:49)
[2017-12-05] MEDS ORDERED: Lidocaine 2% PF * 5 ML VIAL ONE (21:49)
[2017-12-05] MEDS ORDERED: Propofol* 10 MG/ML 20 ML BTL IV PUSH ONE (21:49)
[2017-12-05] MEDS ORDERED: DiMENhydriNATE IV* 50 MG/ML VIAL ONE (21:49)
[2017-12-05] MEDS ORDERED: Dexamethasone IV* 4 MG/ML 1 ML (4 MG) ONE (21:49)
[2017-12-05] MEDS ORDERED: Succinylcholine* 20 MG/ML 10 ML VIAL ONE (21:49)
[2017-12-05] MEDS ORDERED: Ondansetron INJ* 2 MG/ML VIAL ONE (21:49)
[2017-12-05] MEDS ORDERED: Rocuronium* 10 MG/ML VIAL ONE (21:51)
[2017-12-05] MEDS ORDERED: metroNIDAZOLE TAB* 250 MG PO SCH (22:00)
--- NOTE | 2017-12-05 22:09 | PN ---
Progress Note - Progress Note Date of Service: 12/05/17 Note: CT scan was reviewed and shows findings of SBO with dilated gastric remnant with air/fluid level and a loop of jejunum with pneumatosis. I explained to the patient that she needs exploratory laparotomy/gastrostomy and other procedures to be determined at the time of surgery. Her mother was at bedside. The risks were explained including, not limited to, bleeding, infection, pain, scarring, blood clots, pneumonia, visceral injury and the risk of GETA. All questions answered and she agrees to proceed.
[2017-12-05] MEDS ORDERED: Ciprofloxacin 400MG IVPREMIX(* 400 MG/200 ML BAG IVPB ONE (22:12)
[2017-12-05] MEDS ORDERED: metroNIDAZOLE IV 500 MG/100ML* 500 MG/100 ML BAG IVPB ONE (22:13)
--- NOTE | 2017-12-05 22:21 | RAD ---
CLINICAL HISTORY: Abdominal pain. Relevant surgical history includes gastric bypass surgery October 28, 2015, cholecystectomy and most recent surgery as laparotomy to correct an internal hernia. COMPARISON: Most recent CT of the abdomen and pelvis is dated December 02, 2017 TECHNIQUE: Contrast enhanced CT examination of the abdomen and pelvis from the lung bases through the initial tuberosities. The patient received 72 mL Omnipaque 300 intravenously prior to imaging. The patient did not receive oral contrast prior to imaging. FINDINGS: VISUALIZED LUNG BASES: There are small bibasilar pleural effusions slightly larger on the left than the right. ABDOMEN AND PELVIS: The liver, spleen, pancreas and adrenal glands are grossly normal in appearance. The gallbladder is normal. The kidneys are normal in appearance without focal mass, calcification or signs of hydronephrosis. Surgical material related to gastric bypass surgery as well as more recent surgical intervention are noted. There are multiple dilated loops of small bowel measuring up to 4.6 cm in diameter. At the low midline abdomen approximately 3 cm above the sacrum (axial image 67) there are what appear to be more normal-appearing loops of small bowel. Just superior to this (axial image 64) there is potential beaking of air-filled bowel that leads into the more normal segment of bowel. The small bowel exhibit scattered areas of pneumatosis (for example image 50 of 99). There is no gross retroperitoneal or mesenteric lymphadenopathy. There is mild amount of diffuse peritoneal ascites. The pelvic viscera is normal in appearance. The abdominal aorta is normal in appearance. The proximal portions of the celiac trunk, superior mesenteric artery and inferior mesenteric artery appear to fill adequately with contrast (within the limitations of a portal venous contrast enhanced CT). The bones are grossly normal. IMPRESSION: 1. CT findings are consistent with small bowel obstruction with the suspected transition point existing at the low midline posterior peritoneal cavity although the exact transition point is not confidently determined. 2. Pneumatosis which could be seen in the setting of ischemic bowel although there are no obvious filling defects of the celiac trunk, SMA or KODI (within the limitations of this portal venous phase CT examination). Findings were discussed and images reviewed over the telephone with Dr. Ohara at approximately 2200 hours on December 05, 2017
[2017-12-05] MEDS ORDERED: Bupivacaine 0.25% SDV* 30 ML ONE (23:08)
[2017-12-05 23:09] LABS: EGFR Non-African American 92.7 (>60)
[2017-12-06] MEDS ORDERED: Naloxone* 0.4 MG/ML 1 ML VIAL IV PRN (00:37)
[2017-12-06] MEDS ORDERED: Acetaminophen IV 1GM/100ML * 1,000 MG/100 ML VIAL IVPB ONE (00:37)
[2017-12-06] MEDS ORDERED: DiMENhydriNATE IV* 50 MG/ML VIAL IV PUSH PRN (00:37)
[2017-12-06] MEDS ORDERED: HYDROmorphone INJ* 1 MG/ML CARPUJECT SYRINGE ONE (00:40)
[2017-12-06] MEDS ORDERED: Acetaminophen IV 1GM/100ML * 100 ML ONE (01:07)
[2017-12-06] MEDS ORDERED: Neostigmine Methylsulfate* 2 MG/2 ML SYRINGE ONE (01:08)
[2017-12-06] MEDS ORDERED: Glycopyrrolate IV* 0.2 MG/ML 1 ML VIAL ONE (01:08)
--- NOTE | 2017-12-06 01:17 | BRIEFOPN ---
Brief Operative Note - Surgery Procedures: PREOP DX: SBO POSTOP DX: SBO; PERFORATION OF JEJUNUM PROC: EXPL LAP; EDDIE; REPAIR OF JEJUNAL PERF; G-TUBE PLACEMENT. SURG: MECENAS ASSIST: SCHWJANETT ANES: RASHAAD LOOMIS EBL: MIN IVF: 3 L LR SPEC: PERITONEAL FLUID C&S DRAIN: 18 FR G-TUBE; ORTIZ. COMPL: NONE COND: STABLE TO RR; EXTUBATED FINDINGS: DILATED SB WITH DISTAL COLLAPSED ILEUM. FIBRINOUS EXUDATE AND SEROSANG ASCITES. DILATED GASTRIC REMNANT AND PINHOLE PERF OF JEJUNUM DISTAL TO LIGAMENT OF TREITZ PROXIMAL TO J-J ANASTAMOSIS.
[2017-12-06] MEDS: Magnesium Sulf 4 GM/100 ML IV* 4,000 MG/100 ML BAG IVPB ONE (01:40)
[2017-12-06] MEDS ORDERED: HYDROmorphone INJ* 2 MG/ML CARPUJECT SYRINGE ONE (01:50)
[2017-12-06] MEDS: HYDROmorphone INJ* 1 MG/ML CARPUJECT SYRINGE IV PRN ×2 (01:53→02:14)
[2017-12-06] MEDS: Pantoprazole IV* 40 MG IV SCH (02:35)
--- NOTE | 2017-12-06 02:56 | CONS ---
CC: Bre Boyer NP, Dr. Martir Elias. Dr. John Ohara * CONSULTATION REPORT: DATE OF CONSULT: 12/05/17 REQUESTING PROVIDER: Dr. John Ohara. MY ATTENDING WHILE IN THE HOSPITAL: Dr. Martir Elias. PRIMARY CARE PROVIDER: Bre Boyer NP REASON FOR CONSULT: Probable bilateral pyelonephritis with ESBL UTI. HISTORY OF PRESENT ILLNESS: Ms. Sharma is a 42-year-old female with a past medical history significant for kidney stones, frequent UTIs, Cm-en-Y gastric bypass, cholecystectomy and internal hernia which is why she is admitted at this time for repair. The patient is status post surgery on the , she had a laparotomy with reduction and repair of her internal hernias x2 and lysis of adhesions. The patient initially presented with tremendous abdominal pain, nausea and vomiting that came on suddenly. The patient was initially doing well without nausea and vomiting or further complications after the surgery. The patient continues to improve, on 12/04/17 was able to tolerate the liquids, had a bowel movement, no fevers or chills. However, patient did have fever with a temperature of 100.0. The patient began to have urinary symptoms on . A renal ultrasound showed no hydronephrosis. The patient had flank pain radiating to lower abdomen, has had since began voiding and pain while urinating. The patient had urinalysis on 12/01/2017, which showed trace leukocyte esterase, negative nitrites, +2 blood, 1+ protein, trace ketones, squamous epithelial cells, glucose and ascorbic acid. The culture grew back 70 to 75 colonies of ESBL E. coli. The patient was started on ciprofloxacin on 12/04/17, which the E. coli was resistant to. The patient felt significantly worse over the course of the day. On 12/05/17, chest x-ray was performed which showed no radiographic evidence of acute cardiopulmonary disease but dilated loops of the small bowel measuring up to 4 mm in diameter, rule out hemidiaphragm. Abdomen x-ray was performed as well which also showed air filled loops of small bowel to 5.5 cm in diameter worse when compared to December 04. Abdomen and pelvis CT is pending. The patient has not been able to keep anything down whole day today. The patient had a sharp pain in her bilateral lower abdomen radiating to her back. The patient has intermittent fevers at intermission times which is up to 101.6. The patient denies chest pain, but states she gets short of breath with stabbing pain. The patient states she has decreased urine output and decrease in color, but no cloudiness. The patient has feeling of incomplete emptying. The patient has a history of kidney stone and states that she does feel like kidney stones. The patient denies kaleb red blood in her urine. The patient was started on gentamicin under the recommendation of Urology. PAST MEDICAL HISTORY: The patient's past medical history is significant for ADHD, anxiety, depression, kidney stones, bipolar disorder, obesity, status post gastric bypass, malabsorption, iron deficiency anemia, multiple urinary tract infections generally with and kidney stones status post lithotripsy. PAST SURGICAL HISTORY: Gastric bypass, cholecystectomy, recent internal hernia repair. CURRENT MEDICATIONS: 1. Lortab 7.5 mg/325 p.o. q. 4 hours as needed for pain. 2. Adderall 10 mg p.o. b.i.d., 0800 and 1200. 3. Abilify 2 mg p.o. daily scheduled. 4. BuSpar 10 mg p.o. t.i.d. as needed for anxiety. 5. Vitamin D tab 1000 units p.o. daily. 6. Ciprofloxacin 500 mg p.o. q. 12 hours scheduled. 7. Clonidine 0.1 mg p.o. b.i.d. as scheduled. 8. Hydromorphone UNIV[employer]AL B[employer]ER 20 mg in 20 mL, 1 mL an hour via injection 0.5 mg IV slow push q. 1 hour as needed for pain. 9. Toradol 30 mg p.o. IV q. 6 hours as needed for pain. 10. Lactated Ringer's at 150 mL an hour. 11. Magnesium sulfate 4 g. 12. Ascorbic acid. 13. Biotin 14. B12. 15. Calcium. 16. Lamictal. 17. Women's Adult gummy multivitamin. 18. Potassium chloride 40 mEq p.o. daily as scheduled. 19. Compazine 10 mg IV q. 6 hours as needed for nausea and vomiting. 20. Seroquel 150 mg p.o. bedtime as scheduled. ALLERGIES: The patient is allergic to PENICILLIN G with anaphylactic reaction to both that and KEFLEX. FAMILY HISTORY: The patient's mother has CHF. The patient's father had an IL and bypass as well as diverticulitis. The patient's grandfather and grandmother also had MIs. SOCIAL HISTORY: The patient denies smoking history. Has rare alcohol. No illicit drugs. She is and has 6 children. Her surrogate decision makers are her , Cash Sharma, and her mother, Venecia Victoria. REVIEW OF SYSTEMS: A 14-point review of systems was reviewed, is negative except as stated in the HPI. PHYSICAL EXAM: General: The patient is a 42-year-old female who appears older than stated age and is sitting in the bed in moderate distress with occasional vomiting. Vital Signs: Most recent temperature 100.6, heart rate 128, respiratory rate 16, oxygen saturation 97% on room air, blood pressure 97/61. Neck: Supple, nontender, no lymphadenopathy, carotid bruits auscultated. Cardiac: Tachycardic. No clicks, murmurs, gallops, or rubs. Heart: Regular rate and rhythm. Pulses 2+ bilaterally. Dorsalis pedis, posterior tibialis and radial areas. Skin: Warm to the touch. No lower extremity edema noted. Respiratory: Clear to auscultation bilaterally. No wheezes, rales, or rhonchi. Intermittently tachypneic, especially with activity. Abdomen: Distended, tender to palpation with guarding in the bilateral lower quadrants with no hepatosplenomegaly. Bowel sounds present and normoactive in all 4 quadrants consisting of high-pitched tinkles and gurgles. No abdominal bruits auscultated. Genitourinary: Suprapubic tenderness and bilateral CVA tenderness to any palpation. Skin: Clean, dry, no rash. The patient has a laparotomy scar down the center of her abdomen. The patient has no other rash. Neuro: Cranial nerves II through XII grossly intact. No focal deficits. Alert and oriented x3. Psychiatric: The patient is anxious, but otherwise pleasant and cooperative. LAB DATA: From today white blood cell count 10.7, hemoglobin 9.2, hematocrit 29 , MCV 74, MCH 23, RDW is 15, platelet count 211, immature granulocyte 29, neutrophil percent 46% and neutrophils 29%, toxic granulation present. Sodium 135, potassium 2.7, chloride 103, carbon dioxide 26, anion gap 6, BUN 10, creatinine 0.53, glucose 83. Calcium 8.0, magnesium 1.5, bilirubin 0.6, AST 14 , ALT 12, alkaline phosphatase 70, total protein 5.3, albumin 2.6, globulin 2.7 , albumin/globulin ratio 1.0, lipase 54. Other laboratory data: Of note, lactic most recently 1.2. On 12/02/2017, beta HCG quantitative negative, lipase 54. DIAGNOSTIC STUDIES: Pelvis CT from 12/02/17 shows there is a filling defect noted in the superior mesenteric artery best seen on image #33. In addition, there is abrupt change in the caliber of superior mesenteric vein at this level , possibility of internal hernia should be considered. Some enteric edema is noted and definite evidence of bowel obstruction is noted. Renal ultrasound from 12/05/17 shows no left hydronephrosis, calcification noted on previous examination is not well visualized in the images on current examination. Chest x-ray from 12/05/2017 shows no evidence of acute cardiopulmonary disease, below the left hemidiaphragm there are dilated loops in small bowel measuring up to 4 cm in diameter. Abdomen x-ray from 12/05/2017 read as air filled dilated loops of small bowel measuring up to 5.6 cm in diameter, worse when compared to 12/02/2017 CT of the abdomen and pelvis. Abdomen and pelvis CT from 12/05/17, read pending. Inspection by this author showed dilated loops of bowel throughout the abdomen. EKG from 12/05/2017 shows normal sinus rhythm, normal axis, tachycardia, no ST segment changes, no blocks, QTc of 417, no abnormalities. ASSESSMENT AND PLAN: Impression: The patient is a 42-year-old female with past medical history significant for gastric bypass, significant for internal hernia repair postop day #3 and is currently hospitalized and has concerns for ESBL bilateral pyelonephritis as well as small bowel obstruction versus ileus. The patient has increased band neutrophils, tachycardia, tachypnea, fevers, and relative hypotension. The patient appears septic from an unknown source, possibly pyelonephritis or intraabdominal infection. 1. Infection of unknown origin, probable bilateral pyelonephritis, possible intraabdominal infection. The patient has ESBL in her urine, bilateral flank pain and signs of urinary tract infection. This is very possibly the etiology of her sepsis. The patient is currently on gentamicin and ciprofloxacin. We will continue to appreciate Urology input. We will continue gentamicin at this time due to the patient's penicillin allergy. We will defer decision to start meropenem, which is the only agent with proven efficacy in the treatment of serious infections from ESBL to consultation with the infectious disease specialist in the morning. For now, continue gentamicin and ciprofloxacin, we will add metronidazole for anaerobic coverage in the abdomen. We will continue fluids at the current rate of 125 mL an hour. We will check a lactic acid and monitor patient closely. The patient will be transferred to the ICU for more close monitoring. 2. Bowel obstruction/ileus. The patient has signs and symptoms of bowel obstruction as well as imaging showing dilated loops of bowel consistent with either ileus or small bowel obstruction. The patient recently had an internal hernia which is definitely on the differential as is ileus lead to pyelonephritis or intraabdominal infection and defer management to primary surgical team. 3. Hypomagnesemia. We will replete. 4. Hypokalemia. The patient has received potassium IV and potassium by mouth today. We will recheck in the morning. The patient has no QT prolongation on her EKG. 5. FEN. The patient is n.p.o. There is possibility of surgery and probable small bowel obstruction. The patient will have fluids, lactated Ringer's at 150 mL an hour. 6. Code status. The patient is full code. 7. DVT prophylaxis. The patient is to have SCDs while in bed. 8. Disposition. The patient will be transferred to ICU. TIME SPENT: Approximately 75 minutes were spent on this consultation, 40 of which was spent [id number] with the patient, obtaining history and physical and discussing treatment plan. Thank you for this consult. YINA KING [id number]/[facility] #: [id number] FARHAN
[2017-12-06] MEDS ORDERED: NS 0.9% IVPB SCH (03:30)
[2017-12-06] MEDS ORDERED: GENTAMICIN ADULT IVPB SCH (03:30)
[2017-12-06] MEDS: HYDROmorphone PCA* 20 MG/20 ML PCA.SYRING PCA SCH (04:10)
[2017-12-06 04:12] LABS: EGFR Non-African American 143.2 (>60)
[2017-12-06 04:23] LABS: Hematocrit 24 % (35-47); Hemoglobin 7.7 g/dl (12.0-16.0); Mean Corpuscular HGB Conc 32 g/dl (31-36); Mean Corpuscular Hemoglobin 23 pg (27-31); Mean Corpuscular Volume 73 fL (80-97); Mean Platelet Volume 8 um3 (7.4-10.4); Platelet Count 168 10^3/ul (150-450); Red Blood Count 3.31 10^6/ul (4.0-5.4); Red Cell Distribution Width 16 % (10.5-15); White Blood Count 9.3 10^3/ul (3.5-10.8)
[2017-12-06 05:08] LABS: Monocytes % 11 % (0-13)
[2017-12-06] MEDS: metroNIDAZOLE IV 500 MG/100ML* 500 MG/100 ML BAG IVPB SCH ×3 (06:42→22:19)
[2017-12-06 08:21] LABS: Hematocrit 23 % (35-47); Hemoglobin 7.2 g/dl (12.0-16.0); Mean Corpuscular HGB Conc 32 g/dl (31-36); Mean Corpuscular Hemoglobin 23 pg (27-31); Mean Corpuscular Volume 73 fL (80-97); Mean Platelet Volume 8 um3 (7.4-10.4); Platelet Count 170 10^3/ul (150-450); Red Blood Count 3.12 10^6/ul (4.0-5.4); Red Cell Distribution Width 15 % (10.5-15); White Blood Count 11.3 10^3/ul (3.5-10.8)
[2017-12-06 08:57] LABS: Monocytes % 5 % (0-13)
--- NOTE | 2017-12-06 10:46 | PN ---
Progress Note - Progress Note Date of Service: 12/06/17 SOAP: Subjective: She feels better. 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 No N/V. Currently getting txfn PRBCs Objective: Vital Signs Temp 98.8 F 12/06/17 07:56 Pulse 84 12/06/17 08:01 Resp 16 12/06/17 08:01 BP 98/53 12/06/17 08:00 Pulse Ox 100 12/06/17 08:01 Intake & Output 12/05/17 12/06/17 12/06/17 18:59 06:59 18:59 Intake Total 1051 4110 Output Total 375 1975 Balance 676 2135 Weight 120 lb Intake: IV Fluids 1051 3723 LR 950 3678 NS (0.9%) 45 potassium 101 IVPB 137 Magnesium Sulfate 137 Oral 250 Output: G Tube 900 Urine 300 325 Dean 750 Emesis 75 Other: Estimated Void Small # Bowel Movements 0 Estimated Blood Loss 50 Comment # Voids 1 Gen: sitting up in ICU bed; appears NAD; smiling. Abd: dressings c/d/i; distended; soft; tender; G-tube intact with bilious fluid. Laboratory Results - last 24 hr 12/05/17 12/05/17 12/05/17 10:27 10:27 16:07 WBC 4.1 10.7 RBC 3.59 L 3.92 L Hgb 8.4 L 9.2 L Hct 27 L 29 L MCV 74 L 74 L MCH 23 L 23 L MCHC 32 32 RDW 16 H 15 Plt Count 169 211 MPV 8 8 Neut % (Auto) 83.4 H Lymph % (Auto) 13.1 L Bryan % (Auto) 2.2 Eos % (Auto) 0.7 Baso % (Auto) 0.6 Absolute Neuts (auto) 3.4 Absolute Lymphs (auto) 0.5 L Absolute Monos (auto) 0.1 Absolute Eos (auto) 0 Absolute Basos (auto) 0 Absolute Nucleated RBC 0 Immature Gran % 29 H Neutrophils % 46 Band Neutrophils % 29 H Lymphocytes % 8 L Monocytes % 10 Eosinophils % 0 Basophils % 0 Metamyelocytes % 7 H Nucleated RBC % 0 Abs Neuts (Manual) 4.9 Abs Lymphs (Manual) 0.9 L Abs Monocytes (Manual) 1.1 H Absolute Eos (Manual) 0 Abs Basophils (Manual) 0 Toxic Granulation 1+ Normal RBC Morphology Normal Hypochromasia Microcytosis Macrocytosis Elliptocytes Sodium 135 Potassium 2.7 L* Chloride 103 Carbon Dioxide 26 Anion Gap 6 BUN 10 Creatinine 0.53 Est GFR ( Amer) 164.3 Est GFR (Non-Af Amer) 127.8 BUN/Creatinine Ratio 18.9 Glucose 83 Lactic Acid Calcium 8.0 L Magnesium 1.5 L Total Bilirubin 0.60 AST 14 ALT 12 Alkaline Phosphatase 70 Total Protein 5.3 L Albumin 2.6 L Globulin 2.7 Albumin/Globulin Ratio 1.0 Lipase 54 Blood Type Antibody Screen Crossmatch 12/05/17 12/05/17 12/05/17 16:07 20:55 22:49 WBC RBC Hgb Hct MCV MCH MCHC RDW Plt Count MPV Neut % (Auto) Lymph % (Auto) Bryan % (Auto) Eos % (Auto) Baso % (Auto) Absolute Neuts (auto) Absolute Lymphs (auto) Absolute Monos (auto) Absolute Eos (auto) Absolute Basos (auto) Absolute Nucleated RBC Immature Gran % Neutrophils % Band Neutrophils % Lymphocytes % Monocytes % Eosinophils % Basophils % Metamyelocytes % Nucleated RBC % Abs Neuts (Manual) Abs Lymphs (Manual) Abs Monocytes (Manual) Absolute Eos (Manual) Abs Basophils (Manual) Toxic Granulation Normal RBC Morphology Hypochromasia Microcytosis Macrocytosis Elliptocytes Sodium 131 L Potassium 3.6 Chloride 97 L Carbon Dioxide 24 Anion Gap 10 BUN 14 Creatinine 0.70 Est GFR ( Amer) 119.2 Est GFR (Non-Af Amer) 92.7 BUN/Creatinine Ratio 20.0 Glucose 104 H Lactic Acid 2.2 H* Calcium 8.4 L Magnesium Total Bilirubin AST ALT Alkaline Phosphatase Total Protein Albumin Globulin Albumin/Globulin Ratio Lipase Blood Type O Positive Antibody Screen Negative Crossmatch See Detail 12/06/17 12/06/17 12/06/17 03:44 03:44 03:44 WBC 9.3 RBC 3.31 L Hgb 7.7 L Hct 24 L MCV 73 L MCH 23 L MCHC 32 RDW 16 H Plt Count 168 MPV 8 Neut % (Auto) Not Reportable Lymph % (Auto) Not Reportable Bryan % (Auto) Not Reportable Eos % (Auto) Not Reportable Baso % (Auto) Not Reportable Absolute Neuts (auto) Not Reportable Absolute Lymphs (auto) Not Reportable Absolute Monos (auto) Not Reportable Absolute Eos (auto) Not Reportable Absolute Basos (auto) Not Reportable Absolute Nucleated RBC Not Reportable Immature Gran % 33 H Neutrophils % 53 Band Neutrophils % 27 H Lymphocytes % 3 L Monocytes % 11 Eosinophils % Basophils % Metamyelocytes % 6 H Nucleated RBC % Not Reportable Abs Neuts (Manual) 8.2 H Abs Lymphs (Manual) 0.3 L Abs Monocytes (Manual) 1.1 H Absolute Eos (Manual) Abs Basophils (Manual) Toxic Granulation 1+ Normal RBC Morphology Not Reportable Hypochromasia Microcytosis 1+ Macrocytosis 1+ Elliptocytes 1+ Sodium 132 L Potassium 4.0 Chloride 103 Carbon Dioxide 24 Anion Gap 5 BUN 11 Creatinine 0.48 L Est GFR ( Amer) 184.2 Est GFR (Non-Af Amer) 143.2 BUN/Creatinine Ratio 22.9 H Glucose 115 H Lactic Acid 1.8 Calcium 7.4 L Magnesium 2.4 Total Bilirubin 0.50 AST 24 ALT 15 Alkaline Phosphatase 51 Total Protein 4.1 L Albumin 2.0 L Globulin 2.1 Albumin/Globulin Ratio 1.0 Lipase Blood Type Antibody Screen Crossmatch 12/06/17 08:10 WBC 11.3 H RBC 3.12 L Hgb 7.2 L Hct 23 L MCV 73 L MCH 23 L MCHC 32 RDW 15 Plt Count 170 MPV 8 Neut % (Auto) Lymph % (Auto) Bryan % (Auto) Eos % (Auto) Baso % (Auto) Absolute Neuts (auto) Absolute Lymphs (auto) Absolute Monos (auto) Absolute Eos (auto) Absolute Basos (auto) Absolute Nucleated RBC Immature Gran % 14 H Neutrophils % 70 Band Neutrophils % 14 H Lymphocytes % 5 L Monocytes % 5 Eosinophils % Basophils % Metamyelocytes % 6 H Nucleated RBC % Abs Neuts (Manual) 10.1 H Abs Lymphs (Manual) 0.6 L Abs Monocytes (Manual) 0.6 Absolute Eos (Manual) Abs Basophils (Manual) Toxic Granulation 2+ Normal RBC Morphology Not Reportable Hypochromasia 1+ Microcytosis Macrocytosis Elliptocytes Sodium Potassium Chloride Carbon Dioxide Anion Gap BUN Creatinine Est GFR ( Amer) Est GFR (Non-Af Amer) BUN/Creatinine Ratio Glucose Lactic Acid Calcium Magnesium Total Bilirubin AST ALT Alkaline Phosphatase Total Protein Albumin Globulin Albumin/Globulin Ratio Lipase Blood Type Antibody Screen Crossmatch Microbiology 12/05/17 23:43 Gram Stain - Final Peritoneal Fluid Gram neg bacilli; Gram pos bacilli 12/06/17 02:40 Nasal Screen MRSA (PCR)(ELROY) - Final Nasal Mrsa Negative 12/01/17 23:53 Urine Culture - Final Urine Esbl Escherichia Coli Normal Charisma Assessment: POD#0 s/p exlap for SBO and repair perf/POD#4 s/p repair internal hernia. Much improved SBO with perf and peritonitis. UTI. Malnutrition. Chronic iron deficiency anemia, Post Bariatric surgery. Hemodynamically stable. Kidney stone. Plan: Cont Cipro/Flagyl/Gent IV for now. ID consult per Hospitalist. Cont NPO/G-tube to drainage until ileus resolves. Place PICC and start TPN. Would hold further blood transfusion as patient asymptomatic and no evidence of acute or ongoing hemorrhage. Ambulate. OK to d/c dean. Expect her to be her 5-7 days postop. D/w Hospitalist/pt//mother.
[2017-12-06] MEDS ORDERED: Gentamicin Trough Level 1 NOTE MISC FOLLOW UP ONE (11:15)
[2017-12-06] MEDS ORDERED: Gentamicin ADULT (*) 100 MG in NS 0.9% 100 ML* 100 ML IVPB SCH (11:30)
[2017-12-06] MEDS ORDERED: Ferric Gluconate IV* 25 MG in NS 0.9% 50 ML* 50 ML IVPB ONE (12:05)
[2017-12-06] MEDS ORDERED: Gentamicin PEAK LEVEL* 1 NOTE MISC FOLLOW UP ONE (12:15)
[2017-12-06] MEDS: Ciprofloxacin 400MG IVPREMIX(* 400 MG/200 ML BAG IVPB SCH ×2 (12:59→23:31)
[2017-12-06] MEDS ORDERED: Ferric Gluconate IV* 125 MG in NS 0.9% 100 ML* 100 ML IVPB ONE (13:30)
--- NOTE | 2017-12-06 16:44 | OP ---
CC: Bre Boyer NP, [place] * DATE OF OPERATION: 12/06/17 - ROOM #340 DATE OF : 79 SURGEON: John Ohara MD SLEEVE MACHINE TENDER: Luciano Wheeler MD ANESTHESIOLOGIST: Shell Jimenez MD ANESTHESIA: General endotracheal. PRE-OP DIAGNOSIS: Small bowel obstruction. POST-OP DIAGNOSES: Small bowel obstruction and perforation of jejunum. OPERATIVE PROCEDURE: Exploratory laparotomy and lysis of adhesions, repair of jejunal perforation, and gastrostomy tube placement. INDICATIONS: This is a 42-year-old female who is three days status post a laparoscopic converted to open reduction of repair of internal hernia, who had progressive flank pain, and workup included CT scan, which demonstrated small bowel obstruction with dilated gastric remnants and findings concerning for pneumatosis of a portion of jejunum. She also had a bandemia, nausea, and vomiting. Based on these findings, she was taken emergently to the operating room for exploration. ESTIMATED BLOOD LOSS: Minimal. IV FLUIDS: 3 L of crystalloids. SPECIMENS: Peritoneal fluid for Gram stain, culture and sensitivity. DRAINS: 18-Khmer G tube and Juarez catheter. COMPLICATIONS: None. COUNTS: Instrument, needle, and sponge counts were correct. DESCRIPTION OF PROCEDURE: The patient was brought to the operating room and placed on the table supine. Sequential compression devices were placed on both lower extremities. General anesthesia was administered. Juarez catheter was placed. Her abdomen was prepped and draped in usual sterile fashion. Time-out was performed. The midline staple incision was entered by removing the suzan and cutting out the fascial sutures. There were immediately noted dilated loops of small bowel and there was fibrinous exudate with serosanguineous ascites encountered. Fluid from the abdomen was submitted to Microbiology for Gram stain, culture sensitivity. The exploration proceeded with evisceration of the small bowel and there was noted to be distally collapsed ileum. Proximally, the jejunum was dilated and the nasoenteric tube was placed by the anesthesiologist and decompression was assisted by advancing the tube deep into the Cm limb. The bowel was run from the ileum proximal to the jejunojejunostomy. The biliopancreatic limb also appeared dilated and this was inspected. During the inspection of the biliopancreatic limb, there was noted to be a pinhole perforation, which was identified and after mobilizing that segment of the bowel , there was noted to be some bilious fluid draining from the perforation site. This was repaired in two layers with 2-0 Vicryl and interrupted silks in 2 layers. The area was then copiously lavaged until clear. The remaining portions of the small bowel were all carefully inspected, there were no additional enterotomies noted. The gastric remnant was dilated and to decompress it, a gastrostomy tube was placed. First an 18-Khmer gastric tube was placed via separate stab wound incision in the left upper quadrant. A 3-0 silk pursestring was placed on the anterior stomach near the greater curvature and then the gastrotomy was created and pool suction was placed into the stomach to aspirate bilious contents. Next, an 18-Khmer gastrostomy tube was advanced into the stomach and the pursestring suture was secured around the tube. Then, the tube was secured to the anterior abdominal wall with 2-0 silk placing this in the 4 quadrants surrounding the tube and tying these down sequentially after inflating the balloon in the stomach and pulling it up to the abdominal wall. The abdomen was then copiously lavaged with warm saline in 4 quadrants until clear with care taken to irrigate the areas and the spaces above the liver and spleen as well as deep in the pelvis. Subsequently, the bowel was returned to the abdominal cavity and the midline wound was closed with #1 PDS running. The wound was irrigated and closed with intermittent suzan with packing in between, then dressings applied to the midline wound and to the gastrostomy site. The patient tolerated the procedure well, was extubated, and transferred to the recovery room in stable condition. [id number]/[facility] #: [id number] FARHAN
[2017-12-06] MEDS ORDERED: TPN* 24 HR with Dextrose 50% Water* 500 ML, Amino Acid Infusion 10%* 850 ML, Sterile Wa... CENTR SCH ×16 (17:00)
--- NOTE | 2017-12-06 17:16 | PN ---
Subjective Date of Service: 12/06/17 Interval History: Patient feeling much better today. Up and ambulating with the nursing staff. Dizziness on standing which resolved quickly. Slight back pain. Improved from previous day. Patient has pain at surgical incision site. Patient denies F/C, CP , N/V, diarrhea, palpitations, diaphoresis, or other pain. Patient has not had a bowel movement since yesterday and usually has consistent diarrhea. Family History: Unchanged from Admission Social History: Unchanged from Admission Past Medical History: Unchanged from Admission Objective Active Medications: Heparin Sodium (Porcine) (Heparin Flush Picc/Ml/Cvc(*)) 0 ml FLUSH 0600,1800 [facility] PRN Reason: Protocol Hydromorphone HCl (Dilaudid Light Armored Vehicle Officer*) 20 mg in 20 mls @ 0 mls/hr CONING MACHINE OPERATOR .change Q24H [facility]; Per Protocol PRN Reason: Protocol Last Admin: 12/06/17 04:10 Dose: 0.2 mls/hr Lactated Ringer's (Lactated Ringers 1000 Ml Bag*) 1,000 mls @ 150 mls/hr IV PER RATE [facility] Last Admin: 12/06/17 06:09 Dose: 150 mls/hr Ciprofloxacin/Dextrose (Cipro 400 Mg Ivpremix(*)) 400 mg in 200 mls @ 200 mls/ hr IVPB Q12H [facility] Last Admin: 12/06/17 12:59 Dose: 200 mls/hr Metronidazole/Sodium Chloride (Flagyl 500 Mg Ivpb*) 500 mg in 100 mls @ 100 mls /hr IVPB Q8H [facility] Last Admin: 12/06/17 15:56 Dose: 100 mls/hr Dextrose 1,000 ml/ Amino Acids 850 ml/ Sterile Water 150 ml/Fat Emulsion Intravenous 500 ml/ Sodium Chloride 100 meq/Potassium Chloride 50 meq/Potassium Phosphate 15 mmole/Calcium Gluconate 15 meq/Magnesium Sulfate 10 meq/ Multivitamins 10 ml/ Trace Metals 1 ml/ Nutrition ( Parenteral) 2,600.721 mls @ 108.422 mls/hr IV 1700 TEE Pantoprazole Sodium (Protonix Iv*) 40 mg IV Q24H [facility] Last Admin: 12/06/17 02:35 Dose: 40 mg Prochlorperazine Edisylate (Compazine Inj*) 10 mg IV Q6H PRN PRN Reason: NAUSEA/VOMITING Last Admin: 12/05/17 17:03 Dose: 10 mg Vital Signs - 8 hr 12/06/17 12/06/17 12/06/17 09:15 09:30 09:31 Temperature Pulse Rate 91 87 82 Respiratory 20 22 19 Rate Blood Pressure 101/57 (mmHg) O2 Sat by Pulse 96 97 97 Oximetry 12/06/17 12/06/17 12/06/17 09:45 10:00 10:01 Temperature Pulse Rate 85 89 81 Respiratory 19 19 21 Rate Blood Pressure 101/61 (mmHg) O2 Sat by Pulse 98 99 98 Oximetry 12/06/17 12/06/17 12/06/17 10:13 10:15 10:30 Temperature Pulse Rate 85 88 91 Respiratory 21 21 19 Rate Blood Pressure 100/60 (mmHg) O2 Sat by Pulse 97 98 96 Oximetry 12/06/17 12/06/17 12/06/17 10:31 10:45 11:00 Temperature Pulse Rate 88 88 86 Respiratory 21 17 25 Rate Blood Pressure 104/62 (mmHg) O2 Sat by Pulse 97 97 98 Oximetry 12/06/17 12/06/17 12/06/17 11:15 11:30 11:31 Temperature Pulse Rate 81 84 90 Respiratory 20 17 24 Rate Blood Pressure 97/62 (mmHg) O2 Sat by Pulse 95 97 95 Oximetry 12/06/17 12/06/17 12/06/17 11:45 12:00 12:01 Temperature 100.2 F Pulse Rate 86 93 97 Respiratory 24 18 18 Rate Blood Pressure 97/62 (mmHg) O2 Sat by Pulse 96 96 96 Oximetry 12/06/17 12/06/17 12/06/17 12:15 12:30 12:31 Temperature Pulse Rate 85 96 88 Respiratory 24 22 23 Rate Blood Pressure 102/69 (mmHg) O2 Sat by Pulse 97 97 96 Oximetry 12/06/17 12/06/17 12/06/17 12:45 12:52 13:00 Temperature Pulse Rate 85 87 98 Respiratory 23 18 18 Rate Blood Pressure 105/59 102/69 (mmHg) O2 Sat by Pulse 96 96 97 Oximetry 12/06/17 12/06/17 12/06/17 13:01 13:15 13:50 Temperature Pulse Rate 89 94 95 Respiratory 23 18 Rate Blood Pressure (mmHg) O2 Sat by Pulse 96 95 94 Oximetry 12/06/17 12/06/1712/06/18 14:00 14:15 14:30 Temperature Pulse Rate 85 90 86 Respiratory 19 17 23 Rate Blood Pressure (mmHg) O2 Sat by Pulse 94 96 96 Oximetry 12/06/17 12/06/17 12/06/17 14:45 15:00 15:15 Temperature Pulse Rate 88 94 86 Respiratory 19 20 24 Rate Blood Pressure (mmHg) O2 Sat by Pulse 97 98 98 Oximetry 12/06/17 12/06/17 12/06/17 15:30 15:40 15:45 Temperature 99.7 F Pulse Rate 89 92 Respiratory 20 22 Rate Blood Pressure (mmHg) O2 Sat by Pulse 100 99 Oximetry 12/06/17 16:00 Temperature Pulse Rate 90 Respiratory 23 Rate Blood Pressure (mmHg) O2 Sat by Pulse 100 Oximetry Oxygen Devices in Use Now: None Appearance: Patient is a 42yo female who appears stated age and is sitting in the bed in NAD. Much improved from previous exam. Eyes: No Scleral Icterus, PERRLA Ears/Nose/Mouth/Throat: NL Teeth, Lips, Gums, Clear Oropharnyx, Mucous Membranes Moist Neck: NL Appearance and Movements; NL JVP, Trachea Midline Respiratory: Symmetrical Chest Expansion and Respiratory Effort, Clear to Auscultation Cardiovascular: NL Sounds; No Murmurs; No JVD, RRR, - - 1+ edema in B/L LE. Pulses 2+ in radial, DP/PT. Skin warm. Abdominal: No Hepatosplenomegaly - Laparotomy scar in midline covered in dressing. Several other small incisions closed with suzan. BS present and normoactive in all 4 quadrants. Normal sounds of clicks and gurgles. Tenderness to palpation over the incision. No other tenderness. , - Lymphatic: No Cervical Adenopathy Skin: No Nodules or Sclerosis Neurological: Alert and Oriented x 3, NL Sensation, NL Muscle Strength and Tone , - - CN II-XII intact. Result Diagrams: 12/06/17 08:10 12/06/17 03:44 Additional Lab and Data: Lab Results Microbiology and Other Data: Microbiology 12/05/17 23:43 Gram Stain - Final Peritoneal Fluid Body Fluid Culture - Preliminary Escherichia Coli 12/06/17 02:40 Nasal Screen MRSA (PCR)(ELROY) - Final Nasal Mrsa Negative Assess/Plan/Problems-Billing Assessment: Patient is a 42yo female with a PMH significant for gastric bypass, kidney stones, recurrent UTI, ADHD, Bipolar disorder, who is admitted after the surgical correction of an internal hernia and is POD#1 after a repeat ex-lap with closure of jejeunal hole. Patient was previously septic which has resolved. - Patient Problems (1) Status post exploratory laparotomy Current Visit: Yes Status: Acute Code(s): Z98.890 - OTHER SPECIFIED POSTPROCEDURAL STATES SNOMED Code(s): 155903076 Comment: Patient taken to the OR for exploratory laparotomy and found pinhole perforation in jejunum. Perforation repaired and PEG tube placed for decompression of stomach. Patient NPO, TPN started. On ciprofloxacin and Flagyl. Management per primary team. (2) Anemia Current Visit: Yes Status: Acute Code(s): D64.9 - ANEMIA, UNSPECIFIED SNOMED Code(s): 248896062 Comment: Macrocytic, likely due to RISA from chronic iron malabsorption from gastric bypass. At 7.1 this morning with orthostasis. Transfused 1u pRBC. Hemoglobin pending recheck. Started on IV iron. Appreciate hematology input. Monitor hemoglobin closely due to multiple surgeries and decreased ability for production due to iron deficiency. (3) H/O gastric bypass Current Visit: Yes Status: Acute Code(s): Z98.84 - BARIATRIC SURGERY STATUS SNOMED Code(s): 278472804 Comment: Patient has chronic iron malabsorption from gastric bypass causing significant RISA. Started on TPA and IV iron. (4) Bipolar disorder Current Visit: Yes Status: Acute Comment: Quetiapine, Abilify and Lamictal held due to NPO status. Monitor for sydnie. Currently euthymic. (5) ADHD Current Visit: Yes Status: Acute Comment: Adderal held due to NPO. (6) Kidney stone on left side Current Visit: Yes Status: Acute Code(s): N20.0 - CALCULUS OF KIDNEY SNOMED Code(s): 32194114 Comment: Large, Stable. Previously seen by urology in [place] with no intervention suggested. Patient has a family history of kidney stones. Recommend outpatient workup. (7) Urinary tract infection Current Visit: Yes Status: Acute Comment: Appreciate ID input. Previous consideration of bilateral pyelonephritis due to ESBL E coli, likely not cause of patient's sepsis due to intraabdominal infection. Discontinue gentamycin due to risk for AE. Will monitor. (8) Anxiety and depression Current Visit: Yes Status: Acute Code(s): F41.8 - OTHER SPECIFIED ANXIETY DISORDERS SNOMED Code(s): 400484331 Comment: Buspar and antipsychotics held. (9) DVT prophylaxis Current Visit: Yes Status: Acute Code(s): JYD5766 - SNOMED Code(s): 818615487 Comment: SCDs and ambulation. (10) Full code status Current Visit: Yes Status: Acute Code(s): Z78.9 - OTHER SPECIFIED HEALTH STATUS SNOMED Code(s): 963920586 Status and Disposition: Patient is admitted inpatient, able to be transferred out of the ICU.
[2017-12-06 18:13] LABS: Hematocrit 23 % (35-47); Hemoglobin 7.6 g/dl (12.0-16.0); Mean Corpuscular Volume 74 fL (80-97); Red Blood Count 3.17 10^6/ul (4.0-5.4); White Blood Count 16.5 10^3/ul (3.5-10.8)
[2017-12-06 18:14] LABS: Mean Corpuscular HGB Conc 33 g/dl (31-36); Mean Corpuscular Hemoglobin 24 pg (27-31); Mean Platelet Volume 8 um3 (7.4-10.4); Platelet Count 171 10^3/ul (150-450); Red Cell Distribution Width 17 % (10.5-15)
[2017-12-06] MEDS: TPN* 24 HR with D10W 1000 ML BAG* 1,000 ML, Amino Acid Infusion 10%* 850 ML, Sterile Wa... IV SCH ×12 (18:33)
[2017-12-07] MEDS: Pantoprazole IV* 40 MG IV SCH (01:44)
[2017-12-07 06:13] LABS: EGFR Non-African American 162.6 (>60)
[2017-12-07] MEDS: PROCHLORPERAZINE INJ 5 MG/ML 2 ML VIAL IV PRN ×2 (06:17→18:51)
[2017-12-07] MEDS: metroNIDAZOLE IV 500 MG/100ML* 500 MG/100 ML BAG IVPB SCH ×2 (06:25→18:51)
[2017-12-07 06:42] LABS: Hematocrit 27 % (35-47); Hemoglobin 8.7 g/dl (12.0-16.0); Mean Corpuscular HGB Conc 33 g/dl (31-36); Mean Corpuscular Hemoglobin 24 pg (27-31); Mean Corpuscular Volume 74 fL (80-97); Mean Platelet Volume 8 um3 (7.4-10.4); Platelet Count 217 10^3/ul (150-450); Red Blood Count 3.56 10^6/ul (4.0-5.4); Red Cell Distribution Width 17 % (10.5-15)
[2017-12-07 07:40] LABS: Monocytes % 6 % (0-13)
[2017-12-07] MEDS ORDERED: Dextrose 50% Syringe 50 ML* 25 GM/50 ML SYRINGE IV PUSH PRN (09:40)
[2017-12-07] MEDS ORDERED: metroNIDAZOLE IV 500 MG/100ML* 500 MG/100 ML BAG IVPB SCH (11:00)
[2017-12-07] MEDS ORDERED: SULFAMETHOXAZOLE IVPB SCH (12:00)
[2017-12-07] MEDS ORDERED: D5W IVPB SCH (12:00)
[2017-12-07] MEDS ORDERED: TRIMETH IVPB SCH (12:00)
[2017-12-07] MEDS: Insulin LISPRO* 1 UNITS UNIT SUBCUT SCH ×3 (12:07→23:44)
[2017-12-07] MEDS: TPN* 24 HR with D10W 1000 ML BAG* 1,000 ML, Amino Acid Infusion 10%* 850 ML, Sterile Wa... IV SCH ×12 (15:07)
[2017-12-07] MEDS: Meropenem 1 GM PREMIX(*) 1 GM/50 ML BAG IV SCH ×2 (15:07→21:46)
--- NOTE | 2017-12-07 16:30 | CONS ---
CONSULTATION REPORT: DATE OF CONSULT: 12/07/17 REQUESTING PHYSICIAN: Dr. John Ohara. CONSULTING SERVICE: Infectious Disease. REASON FOR CONSULT: Peritonitis. IMPRESSION: 1. History of laparoscopic Cm-en-Y gastric bypass, admitted with internal hernia with intestinal ischemia, status post laparotomy and repair of internal hernia and lysis of adhesions on 12/02/17. Subsequently, febrile with leukocytosis, taken back to the operating room on 12/06/17 and found to have jejunal perforation, which was repaired and a gastrostomy tube was placed. She has improved significantly since then, has been on Cipro and Flagyl. She had a urine culture done at admission that grew an ESBL-producing Escherichia coli 50, 000 colonies, resistant to Cipro. I do not think that Escherichia coli in the urine is a pathogen in her given the benign urinalysis. It is possible that she is also colonized with Escherichia coli in the bowel that is an ESBL field producer, which at this point is resistant to Cipro. 2. PENICILLIN allergy, KEFLEX allergy, apparently had caused anaphylaxis in the past. RECOMMENDATION: Stop Cipro and start Bactrim 750 mg IV every 12 hours at 5 mg/ kg of the trimethoprim dose. She is overall improving significantly since her surgery and so antibiotics are probably less significant part of her treatment at this point. HISTORY OF PRESENT ILLNESS: This is a 42-year-old woman with a history of laparoscopic Cm-en-Y gastric bypass, admitted with left-sided abdominal pain that radiated to the umbilicus, was severe. She came to the hospital on . A CT scan showed internal hernia. She was taken to the operating room on 12/02/[address] Ohara for repair of the hernia. She did well and then had some fever, more abdominal pain. She was taken back to the operating room for exploratory laparotomy and repair of the jejunal perforation. Cultures were taken from the peritoneum that showed gram-negative rods, gram-positive rods, she was growing 2+ E. coli. She has been afebrile since her second surgery. Her abdominal pain has continued to improve. She was up the whole lot yesterday , walking around, a couple of labs around the unit. Today, she is more tired. She is having abdominal cramping that feels like her period is coming. Her white count is 20,000 today. Her bands have been 29% earlier in the week. She is not passing flatus. Her abdomen feels slightly distended, but better than yesterday. PAST MEDICAL HISTORY: 1. Status post gastric bypass. 2. History of nephrolithiasis and urinary tract infection, last was 2010. 3. ADHD. 4. Anxiety. 5. Bipolar disorder. 6. Iron deficiency anemia. 7. Status post cholecystectomy. 8. Hernia repair as a child. MEDICATIONS: 1. Ferric gluconate. 2. Metronidazole 500 mg every 8 hours. 3. Pantoprazole. 4. Cipro 400 mg every 12 hours. FAMILY HISTORY: No recurrent infections. Mother is alive, she has congestive heart failure. Father had coronary artery disease, PR and bypass, and diverticulitis. SOCIAL HISTORY: She lives in [place]. She has no travel or sick contact. REVIEW OF SYSTEMS: A 14-point review of systems all negative, except as noted above. PHYSICAL EXAM: Vital Signs: Temperature 36.6, heart rate 70, respiratory rate 16, blood pressure 100/50, O2 sat 99% on 2 L supplemental oxygen. In general, she is awake, not in distress, looks tired. HEENT: There is no conjunctival hemorrhage. Oropharynx is without lesions. Neck: Supple. Lymph Nodes: No cervical, supraclavicular, inguinal, axillary, or epitrochlear lymphadenopathy. Heart has regular rate and rhythm without murmurs, rubs or gallops. Lungs have decreased breath sounds at the bases bilaterally without wheezes or rales. Abdomen: Soft, nontender, nondistended. There are bowel sounds present. There is midline incision, which is intact, suzan, no erythema or drainage. Musculoskeletal: No spine tenderness to palpation or joint synovitis. LABORATORY DATA: White blood cell count 21,000, hemoglobin 8.7, MCV 74, platelets 217. Creatinine 0.4. CRP 250. Please see impressions and recommendations outlined above, which I have discussed with Dr. Ohara. Thanks for asking me to see Ms. Verma in consultation. [id number]/[facility] #: [id number] MTDChai
[2017-12-07] MEDS ORDERED: TPN* 24 HR with D10W 1000 ML BAG* 1,000 ML, Amino Acid Infusion 10%* 850 ML, Sterile Wa... IV SCH ×16 (17:00)
--- NOTE | 2017-12-07 18:08 | PN ---
Subjective Date of Service: 12/07/17 Interval History: ESBL Ecoli in peritoneal fluid. ID put on bactrim but then culture turned out resistant. Changed to meropenem. WBC had risen to 21.0. Occasional SOB. PICC line placed. Family History: Unchanged from Admission Social History: Unchanged from Admission Past Medical History: Unchanged from Admission Objective Active Medications: Dextrose (D50w Syringe 50 Ml*) 12.5 gm IV PUSH .FOR FS < 60 - SS PRN PRN Reason: FS < 60 Heparin Sodium (Porcine) (Heparin Flush Picc/Ml/Cvc(*)) 0 ml FLUSH 0600,1800 [facility] PRN Reason: Protocol Last Admin: 12/07/17 06:03 Dose: Not Given Hydromorphone HCl (Dilaudid [employer] Spray Supervisor*) 20 mg in 20 mls @ 0 mls/hr LOOM INSPECTOR .change Q24H [facility]; Per Protocol PRN Reason: Protocol Last Admin: 12/06/17 04:10 Dose: 0.2 mls/hr Dextrose 1,000 ml/ Amino Acids 850 ml/ Sterile Water 150 ml/Fat Emulsion Intravenous 500 ml/ Sodium Chloride 100 meq/Potassium Chloride 50 meq/Potassium Phosphate 15 mmole/Calcium Gluconate 15 meq/Magnesium Sulfate 10 meq/ Multivitamins 10 ml/ Trace Metals 1 ml/ Nutrition ( Parenteral) 2,600.721 mls @ 108.422 mls/hr IV 1700 TEE Stop: 12/08/17 16:59 Last Admin: 12/07/17 15:07 Dose: 108.422 mls/hr Sodium Chloride (Ns 0.9% 1000 Ml*) 1,000 mls @ 30 mls/hr IV .KVO [facility] PRN Reason: KVO Ferric Sodium Gluconate Complex 125 mg/ Sodium Chloride 110 mls @ 110 mls/hr IVPB ONCE ONE Stop: 12/08/17 12:29 Metronidazole/Sodium Chloride (Flagyl 500 Mg Ivpb*) 500 mg in 100 mls @ 100 mls /hr IVPB 0600,1800 [facility] Meropenem (Merrem 1 Gm Premix(*)) 1 gm in 50 mls @ 100 mls/hr IV Q8H [facility] Last Admin: 12/07/17 15:07 Dose: 100 mls/hr Insulin Human Lispro (Humalog*) 0 units SUBCUT Q6HR [facility] PRN Reason: Protocol Last Admin: 12/07/17 18:01 Dose: Not Given Pantoprazole Sodium (Protonix Iv*) 40 mg IV Q24H [facility] Last Admin: 12/07/17 01:44 Dose: 40 mg Prochlorperazine Edisylate (Compazine Inj*) 10 mg IV Q6H PRN PRN Reason: NAUSEA/VOMITING Last Admin: 12/07/17 06:17 Dose: 10 mg Vital Signs - 8 hr 12/07/17 12/07/17 12/07/17 11:00 11:43 13:00 Temperature 98.1 F Pulse Rate 75 Respiratory 16 16 16 Rate Blood Pressure 111/58 (mmHg) O2 Sat by Pulse 100 100 100 Oximetry 12/07/17 15:00 Temperature Pulse Rate Respiratory 16 Rate Blood Pressure (mmHg) O2 Sat by Pulse 100 Oximetry Oxygen Devices in Use Now: Nasal Cannula Appearance: NAD, but tired appearing. Eyes: No Scleral Icterus, PERRLA Ears/Nose/Mouth/Throat: NL Teeth, Lips, Gums, Mucous Membranes Moist Respiratory: Symmetrical Chest Expansion and Respiratory Effort, Clear to Auscultation, - - decreased left base. Cardiovascular: NL Sounds; No Murmurs; No JVD, RRR Abdominal: NL Sounds; No Tenderness; No Distention, - - drain LUQ with brown/ bilious drainage Extremities: No Edema, No Clubbing, Cyanosis Skin: No Rash or Ulcers, No Nodules or Sclerosis Neurological: Alert and Oriented x 3, NL Muscle Strength and Tone Result Diagrams: 12/07/17 05:35 12/07/17 05:35 Additional Lab and Data: Lab Results Laboratory Results - last 24 hr 12/05/17 12/06/17 12/07/17 16:07 17:28 05:35 WBC 16.5 H 21.0 H RBC 3.17 L 3.56 L Hgb 7.6 L 8.7 L Hct 23 L 27 L MCV 74 L 74 L MCH 24 L 24 L MCHC 33 33 RDW 17 H 17 H Plt Count 171 217 MPV 8 8 Neut % (Auto) Not Reportable Lymph % (Auto) Not Reportable [place] % (Auto) Not Reportable Eos % (Auto) Not Reportable Baso % (Auto) Not Reportable Absolute Neuts (auto) Not Reportable Absolute Lymphs (auto) Not Reportable Absolute Monos (auto) Not Reportable Absolute Eos (auto) Not Reportable Absolute Basos (auto) Not Reportable Absolute Nucleated RBC Not Reportable Immature Gran % 18 H Neutrophils % 74 Band Neutrophils % 18 H Lymphocytes % 2 L Monocytes % 6 Eosinophils % 0 Basophils % 0 Nucleated RBC % Not Reportable Abs Neuts (Manual) 15.5 H Abs Lymphs (Manual) 0.4 L Abs Monocytes (Manual) 1.3 H Absolute Eos (Manual) 0 Abs Basophils (Manual) 0 Toxic Granulation 1+ Normal RBC Morphology Not Reportable Hypochromasia 1+ Elliptocytes 1+ Hem Pathologist Commnt Sodium Potassium Chloride Carbon Dioxide Anion Gap BUN Creatinine Est GFR ( Amer) Est GFR (Non-Af Amer) BUN/Creatinine Ratio Glucose POC Glucose (mg/dL) Calcium Magnesium Total Bilirubin AST ALT Alkaline Phosphatase C-Reactive Protein Total Protein Albumin Globulin Albumin/Globulin Ratio Crossmatch See Detail 12/07/17 12/07/17 12/07/17 05:35 11:49 17:50 WBC RBC Hgb Hct MCV MCH MCHC RDW Plt Count MPV Neut % (Auto) Lymph % (Auto) [place] % (Auto) Eos % (Auto) Baso % (Auto) Absolute Neuts (auto) Absolute Lymphs (auto) Absolute Monos (auto) Absolute Eos (auto) Absolute Basos (auto) Absolute Nucleated RBC Immature Gran % Neutrophils % Band Neutrophils % Lymphocytes % Monocytes % Eosinophils % Basophils % Nucleated RBC % Abs Neuts (Manual) Abs Lymphs (Manual) Abs Monocytes (Manual) Absolute Eos (Manual) Abs Basophils (Manual) Toxic Granulation Normal RBC Morphology Hypochromasia Elliptocytes Hem Pathologist Commnt Sodium 132 L Potassium 3.4 L Chloride 102 Carbon Dioxide 26 Anion Gap 4 BUN 19 Creatinine 0.43 L Est GFR ( Amer) 209.1 Est GFR (Non-Af Amer) 162.6 BUN/Creatinine Ratio 44.2 H Glucose 118 H POC Glucose (mg/dL) 122 H 90 Calcium 8.1 L Magnesium 2.3 Total Bilirubin 0.30 AST 23 ALT 16 Alkaline Phosphatase 88 C-Reactive Protein 251.95 H Total Protein 5.2 L Albumin 2.5 L Globulin 2.7 Albumin/Globulin Ratio 0.9 L Crossmatch Microbiology and Other Data: Microbiology 12/05/17 23:43 Peritoneal Fluid Gram Stain - Final 12/05/17 23:43 Peritoneal Fluid Body Fluid Culture - Preliminary Esbl Escherichia Coli 12/05/17 21:57 Blood Venous Aerobic Blood Culture - Preliminary No Growth Day 1 12/05/17 21:57 Blood Venous Anaerobic Blood Culture - Preliminary No Growth Day 1 12/05/17 21:42 Blood Venous Aerobic Blood Culture - Preliminary No Growth Day 1 12/05/17 21:42 Blood Venous Anaerobic Blood Culture - Preliminary No Growth Day 1 12/06/17 02:40 Nasal Nasal Screen MRSA (PCR)(ELROY) - Final Mrsa Negative 12/01/17 23:53 Urine Urine Culture - Final Esbl Escherichia Coli Normal [place] Assess/Plan/Problems-Billing Assessment: 42yo female PMH gastric bypass, kidney stones, recurrent UTI, ADHD, Bipolar disorder, p/w abdominal pain found to have internal hernia s/p ex lap and is POD #2 after a repeat ex-lap with closure of small jejeunal hole. Septic (resolved) . ESBL Ecoli in urine and peritoneal fluid, now on meropenem and TPN. - Patient Problems (1) Bowel perforation Current Visit: Yes Status: Acute Code(s): K63.1 - PERFORATION OF INTESTINE ( NONTRAUMATIC) SNOMED Code(s): 06665484 Comment: POD#2 exploratory laparotomy, found pinhole perforation in jejunum. Perforation repaired and PEG tube placed for decompression of stomach. Patient NPO, on TPN started. ESBL Ecoli on Flagyl and now meropenem per sensitivities. Appreciate ID recs ( discussed with Dr. Smith). (2) Sepsis Current Visit: Yes Status: Acute Comment: Resolved. Hypotensive and tachypneic 2/3 sepsis 3 criteria. source ESBL ecoli 2/2 pinpoint bowel perf continue antibiotics as above. (3) Internal hernia Current Visit: Yes Status: Acute Code(s): K45.8 - OTH ABDOMINAL HERNIA WITHOUT OBSTRUCTION OR GANGRENE SNOMED Code(s): 62495078 Comment: s/p ex lap. (4) ADHD Current Visit: Yes Status: Acute Comment: Adderal held due to NPO. (5) Anemia Current Visit: Yes Status: Acute Code(s): D64.9 - ANEMIA, UNSPECIFIED SNOMED Code(s): 301452718 Comment: Microcytic, likely due to RISA from chronic iron malabsorption from gastric bypass. s/p 1u pRBC on 12/06. Hgb improved 8.7. On IV iron as per heme/ onc recs. Iron 17, Iron Sat 3%. Ferritin <10. (6) Anxiety and depression Current Visit: Yes Status: Acute Code(s): F41.8 - OTHER SPECIFIED ANXIETY DISORDERS SNOMED Code(s): 329117688 Comment: Buspar and antipsychotics held. (7) Bipolar disorder Current Visit: Yes Status: Acute Comment: Quetiapine, Abilify and Lamictal held due to NPO status. Monitor for sydnie. Currently euthymic. 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 Started on TPA and IV iron. (9) Kidney stone on left side Current Visit: Yes Status: Acute Code(s): N20.0 - CALCULUS OF KIDNEY SNOMED Code(s): 42206325 Comment: not seen on most recent imaging. Previously seen by urology in [place] with no intervention suggested. Patient has a family history of kidney stones. Recommend outpatient workup. Status and Disposition: surgery inpatient, medicine consulting. Attending: Kuldip Guevara
[2017-12-08] MEDS: Pantoprazole IV* 40 MG IV SCH (03:03)
[2017-12-08] MEDS: PROCHLORPERAZINE INJ 5 MG/ML 2 ML VIAL IV PRN (05:22)
[2017-12-08] MEDS: Meropenem 1 GM PREMIX(*) 1 GM/50 ML BAG IV SCH ×3 (05:26→22:36)
[2017-12-08] MEDS: metroNIDAZOLE IV 500 MG/100ML* 500 MG/100 ML BAG IVPB SCH ×2 (06:25→17:03)
[2017-12-08] MEDS: Insulin LISPRO* 1 UNITS UNIT SUBCUT SCH ×3 (06:38→18:07)
[2017-12-08 09:03] LABS: Hematocrit 24 % (35-47); Hemoglobin 8.9 g/dl (12.0-16.0); Mean Corpuscular HGB Conc 37 g/dl (31-36); Mean Corpuscular Hemoglobin 28 pg (27-31); Mean Corpuscular Volume 75 fL (80-97); Mean Platelet Volume 8 um3 (7.4-10.4); Platelet Count 241 10^3/ul (150-450); Red Blood Count 3.17 10^6/ul (4.0-5.4); Red Cell Distribution Width 17 % (10.5-15); White Blood Count 20.3 10^3/ul (3.5-10.8)
[2017-12-08 09:17] LABS: EGFR Non-African American 220.7 (>60)
--- NOTE | 2017-12-08 09:18 | PN ---
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;using inspiron;getting OOB [] Objective:afeb;lungs:crackles right base,left clear;abd:hypoactive bs,soft, nondistended;gtube with bilious drainage;midline incision intact with suzan, clean,no erythema,redressed with sterile 4x4's;ext:SCDs on ,nontender Vital Signs Temp 98.1 F 12/08/17 08:12 Pulse 100 12/08/17 08:12 Resp 16 12/08/17 08:56 BP 122/66 12/08/17 08:12 Pulse Ox 95 12/08/17 08:56 Intake & Output 12/07/17 12/08/17 12/08/17 18:59 06:59 18:59 Intake Total 2818 0 Output Total 1625 700 200 Balance 1193 -700 -200 Intake: IV Fluids 1915 Bactrim 550 LR 1098 NS (0.9%) 267 TPN/PPN 903 Oral 0 0 Output: G Tube 25 100 Urine 1600 600 200 Other: # Bowel Movements 0 [] Assessment:would like ice chips;passed scant flatus [] Plan:update Dr Ohara;NPO for now;cont abx and TPN;await CBC results;push IS and ambulation []
[2017-12-08 09:36] LABS: Monocytes % 4 % (0-13)
--- NOTE | 2017-12-08 11:16 | PN ---
Progress Note - Progress Note Date of Service: 12/08/17 SOAP: Subjective: CC: peritonitis HPI: 42 year old woman with hx gastric bypass, admitted with internal hernia which was repiaired, back to OR for jejunal leak. Has been walking around the unit, feels well. No fever or rash. Objective: Vital Signs Temp 36.7 C 12/08/17 08:12 Pulse 100 12/08/17 08:12 Resp 16 12/08/17 08:56 BP 122/66 12/08/17 08:12 Pulse Ox 95 12/08/17 08:56 Intake & Output 12/07/17 12/08/17 12/08/17 18:59 06:59 18:59 Intake Total 2818 0 Output Total 1625 700 350 Balance 1193 -700 -350 Intake: IV Fluids 1915 Bactrim 550 LR 1098 NS (0.9%) 267 TPN/PPN 903 Oral 0 0 Output: G Tube 25 100 Urine 1600 600 350 Other: # Bowel Movements 0 Gen:awake, no distress HEENT:PERRL, MMM Heart:RRR no murmur Lungs:CTA BL Abd:+BS NTND soft; incision intact no erythema Skin: no rash Laboratory Results - last 24 hr 12/06/17 12/07/17 12/07/17 17:28 11:49 17:50 WBC RBC Hgb Hct MCV MCH MCHC RDW Plt Count MPV Neut % (Auto) Lymph % (Auto) [place] % (Auto) Eos % (Auto) Baso % (Auto) Absolute Neuts (auto) Absolute Lymphs (auto) Absolute Monos (auto) Absolute Eos (auto) Absolute Basos (auto) Absolute Nucleated RBC Immature Gran % Neutrophils % Band Neutrophils % Lymphocytes % Monocytes % Eosinophils % Basophils % Metamyelocytes % Myelocytes % Nucleated RBC % Abs Neuts (Manual) Abs Lymphs (Manual) Abs Monocytes (Manual) Absolute Eos (Manual) Abs Basophils (Manual) Normal RBC Morphology Elliptocytes Acanthocytes (Spur) Hem Pathologist Commnt Sodium Potassium Chloride Carbon Dioxide Anion Gap BUN Creatinine Est GFR ( Amer) Est GFR (Non-Af Amer) BUN/Creatinine Ratio Glucose POC Glucose (mg/dL) 122 H 90 Calcium 12/07/17 12/08/17 12/08/17 23:43 06:32 08:30 WBC 20.3 H RBC 3.17 L Hgb 8.9 L Hct 24 L MCV 75 L MCH 28 MCHC 37 H RDW 17 H Plt Count 241 MPV 8 Neut % (Auto) Not Reportable Lymph % (Auto) Not Reportable [place] % (Auto) Not Reportable Eos % (Auto) Not Reportable Baso % (Auto) Not Reportable Absolute Neuts (auto) Not Reportable Absolute Lymphs (auto) Not Reportable Absolute Monos (auto) Not Reportable Absolute Eos (auto) Not Reportable Absolute Basos (auto) Not Reportable Absolute Nucleated RBC Not Reportable Immature Gran % 8 Neutrophils % 65 Band Neutrophils % 8 Lymphocytes % 7 L Monocytes % 4 Eosinophils % 1 Basophils % 0 Metamyelocytes % 4 H Myelocytes % 11 H Nucleated RBC % Not Reportable Abs Neuts (Manual) 13.1 H Abs Lymphs (Manual) 1.4 Abs Monocytes (Manual) 0.8 Absolute Eos (Manual) 0.2 Abs Basophils (Manual) 0 Normal RBC Morphology Not Reportable Elliptocytes 1+ Acanthocytes (Spur) 2+ Hem Pathologist Commnt Sodium Potassium Chloride Carbon Dioxide Anion Gap BUN Creatinine Est GFR ( Amer) Est GFR (Non-Af Amer) BUN/Creatinine Ratio Glucose POC Glucose (mg/dL) 130 H 145 H Calcium 12/08/17 08:30 WBC RBC Hgb Hct MCV MCH MCHC RDW Plt Count MPV Neut % (Auto) Lymph % (Auto) [place] % (Auto) Eos % (Auto) Baso % (Auto) Absolute Neuts (auto) Absolute Lymphs (auto) Absolute Monos (auto) Absolute Eos (auto) Absolute Basos (auto) Absolute Nucleated RBC Immature Gran % Neutrophils % Band Neutrophils % Lymphocytes % Monocytes % Eosinophils % Basophils % Metamyelocytes % Myelocytes % Nucleated RBC % Abs Neuts (Manual) Abs Lymphs (Manual) Abs Monocytes (Manual) Absolute Eos (Manual) Abs Basophils (Manual) Normal RBC Morphology Elliptocytes Acanthocytes (Spur) Hem Pathologist Commnt Sodium 123 L D Potassium TNP Chloride 99 L Carbon Dioxide 23 Anion Gap 1 L BUN 10 Creatinine 0.33 L Est GFR ( Amer) 283.9 Est GFR (Non-Af Amer) 220.7 BUN/Creatinine Ratio 30.3 H Glucose 351 H POC Glucose (mg/dL) Calcium 7.8 L Microbiology 12/05/17 23:43 Gram Stain - Final Peritoneal Fluid Body Fluid Culture - Preliminary Esbl Escherichia Coli 12/05/17 21:57 Aerobic Blood Culture - Preliminary Blood Venous No Growth Day 2 Anaerobic Blood Culture - Preliminary No Growth Day 2 12/05/17 21:42 Aerobic Blood Culture - Preliminary Blood Venous No Growth Day 2 Anaerobic Blood Culture - Preliminary No Growth Day 2 Assessment: 1. peritonitis s/p laparotomy ; E.coli/ESBL 2. TPN 3. asymptomatic bacteruria 5. anaphylaxis with pcn, cephalosporin; tolerates meropenem Plan: 1. continue meropenem day 2/5-7 assuming continued improvement
[2017-12-08] MEDS ORDERED: Ferric Gluconate IV* 125 MG in NS 0.9% 100 ML* 100 ML IVPB ONE (11:30)
--- NOTE | 2017-12-08 11:33 | PN ---
Progress Note - Progress Note Date of Service: 12/07/17 SOAP: Subjective: Patient seen in AM 12/07. Adequate pain control and feeling improved overall. No flatus. Objective: AVSS Lungs: CTA B; no W/R/R Abd: wound clean/dry. Packing removed. ND, soft and mod tenderness. G-tube intact with bilious o/p. U/o 275ml/8h; Gtube 10ml/8h Lab and micro reviewed. Assessment: POD#1 s/p exlap for SBO and repair perf/POD#5 s/p repair internal hernia. SBO with perf and peritonitis. UTI. Malnutrition. Chronic iron deficiency anemia, Post Bariatric surgery. Kidney stone. Plan: PICC today for TPN. Keep NPO. Abx per ID. Iron infusion Monday and 2x/wk as d/w Dr. Cuellar.
[2017-12-08] MEDS: HYDROmorphone PCA* 20 MG/20 ML PCA.SYRING PCA SCH (13:59)
[2017-12-08] MEDS: TPN* 24 HR with Dextrose 50% Water* 500 ML, Amino Acid Infusion 10%* 850 ML, Sterile Wa... CENTR SCH ×12 (17:03)
--- NOTE | 2017-12-08 18:09 | PN ---
Subjective Date of Service: 12/08/17 Interval History: Pt feeling a bit better today. Dilaudid weight analyst ~4mg every 8 hours. transient desat in morning. Labs drawn from PICC (with TPN) and likely spurious given large drop in Na and increase in Glucose). Advanced to clears. Afebrile. WBC stably high, bands improved. 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 .change Q24H TEE; Per Protocol PRN Reason: Protocol Last Admin: 12/08/17 13:59 Dose: 1 mls/hr Sodium Chloride (Ns 0.9% 1000 Ml*) 1,000 mls @ 30 mls/hr IV .KVO TEE PRN Reason: KVO Metronidazole/Sodium Chloride (Flagyl 500 Mg Ivpb*) 500 mg in 100 mls @ 100 mls /hr IVPB 0600,1800 [facility] Last Admin: 12/08/17 17:03 Dose: 100 mls/hr Meropenem (Merrem 1 Gm Premix(*)) 1 gm in 50 mls @ 100 mls/hr IV Q8H [facility] Last Admin: 12/08/17 13:59 Dose: 100 mls/hr Dextrose 500 ml/ Amino Acids 850 ml/ Sterile Water 150 ml/Fat Emulsion Intravenous 250 ml/ Sodium Chloride 100 meq/Potassium Chloride 50 meq/Potassium Phosphate 15 mmole/Calcium Gluconate 15 meq/Magnesium Sulfate 10 meq/ Multivitamins 10 ml/ Trace Metals 1 ml/ Nutrition ( Parenteral) 1,850.721 mls @ 77.113 mls/hr CENTR 1700 [facility] Last Admin: 12/08/17 17:03 Dose: 77.113 mls/hr Insulin Human Lispro (Humalog*) 0 units SUBCUT Q6HR TEE PRN Reason: Protocol Last Admin: 12/08/17 12:38 Dose: Not Given Pantoprazole Sodium (Protonix Iv*) 40 mg IV Q24H TEE Last Admin: 12/08/17 03:03 Dose: 40 mg Prochlorperazine Edisylate (Compazine Inj*) 10 mg IV Q6H PRN PRN Reason: NAUSEA/VOMITING Last Admin: 12/08/17 05:22 Dose: 10 mg Vital Signs - 8 hr 12/08/17 12/08/17 12/08/17 11:00 11:32 13:00 Temperature 99.1 F Pulse Rate 95 Respiratory 16 16 16 Rate Blood Pressure 121/66 (mmHg) O2 Sat by Pulse 98 100 100 Oximetry 12/08/17 12/08/17 12/08/17 13:59 14:05 14:56 Temperature Pulse Rate Respiratory 16 16 16 Rate Blood Pressure (mmHg) O2 Sat by Pulse 98 Oximetry 12/08/17 12/08/17 15:38 17:00 Temperature 99.8 F Pulse Rate 101 Respiratory 16 16 Rate Blood Pressure 119/61 (mmHg) O2 Sat by Pulse 99 97 Oximetry Oxygen Devices in Use Now: Nasal Cannula Appearance: NAD, ambulating, tired Eyes: No Scleral Icterus, PERRLA Ears/Nose/Mouth/Throat: NL Teeth, Lips, Gums, Mucous Membranes Moist Neck: NL Appearance and Movements; NL JVP Respiratory: - - decreased bases. Cardiovascular: NL Sounds; No Murmurs; No JVD, RRR Abdominal: - - midline scar, PEG. slightly tender near scars. not distended. Extremities: No Edema, No Clubbing, Cyanosis Skin: No Rash or Ulcers, No Nodules or Sclerosis Neurological: Alert and Oriented x 3, NL Sensation, NL Muscle Strength and Tone Nutrition: Taking PO's, TPN Result Diagrams: 12/08/17 08:30 12/08/17 10:58 Additional Lab and Data: Laboratory Results - last 24 hr 12/07/17 12/08/17 12/08/17 23:43 06:32 08:30 WBC 20.3 H RBC 3.17 L Hgb 8.9 L Hct 24 L MCV 75 L MCH 28 MCHC 37 H RDW 17 H Plt Count 241 MPV 8 Neut % (Auto) Not Reportable Lymph % (Auto) Not Reportable [place] % (Auto) Not Reportable Eos % (Auto) Not Reportable Baso % (Auto) Not Reportable Absolute Neuts (auto) Not Reportable Absolute Lymphs (auto) Not Reportable Absolute Monos (auto) Not Reportable Absolute Eos (auto) Not Reportable Absolute Basos (auto) Not Reportable Absolute Nucleated RBC Not Reportable Immature Gran % 8 Neutrophils % 65 Band Neutrophils % 8 Lymphocytes % 7 L Monocytes % 4 Eosinophils % 1 Basophils % 0 Metamyelocytes % 4 H Myelocytes % 11 H Nucleated RBC % Not Reportable Abs Neuts (Manual) 13.1 H Abs Lymphs (Manual) 1.4 Abs Monocytes (Manual) 0.8 Absolute Eos (Manual) 0.2 Abs Basophils (Manual) 0 Normal RBC Morphology Not Reportable Elliptocytes 1+ Acanthocytes (Spur) 2+ Sodium Potassium Chloride Carbon Dioxide Anion Gap BUN Creatinine Est GFR ( Amer) Est GFR (Non-Af Amer) BUN/Creatinine Ratio Glucose POC Glucose (mg/dL) 130 H 145 H Calcium 12/08/17 12/08/17 12/08/17 08:30 10:58 12:09 WBC RBC Hgb Hct MCV MCH MCHC RDW Plt Count MPV Neut % (Auto) Lymph % (Auto) [place] % (Auto) Eos % (Auto) Baso % (Auto) Absolute Neuts (auto) Absolute Lymphs (auto) Absolute Monos (auto) Absolute Eos (auto) Absolute Basos (auto) Absolute Nucleated RBC Immature Gran % Neutrophils % Band Neutrophils % Lymphocytes % Monocytes % Eosinophils % Basophils % Metamyelocytes % Myelocytes % Nucleated RBC % Abs Neuts (Manual) Abs Lymphs (Manual) Abs Monocytes (Manual) Absolute Eos (Manual) Abs Basophils (Manual) Normal RBC Morphology Elliptocytes Acanthocytes (Spur) Sodium 123 L D Potassium TNP 3.3 L Chloride 99 L Carbon Dioxide 23 Anion Gap 1 L BUN 10 Creatinine 0.33 L Est GFR ( Amer) 283.9 Est GFR (Non-Af Amer) 220.7 BUN/Creatinine Ratio 30.3 H Glucose 351 H POC Glucose (mg/dL) 131 H Calcium 7.8 L Microbiology and Other Data: Microbiology 12/05/17 23:43 Peritoneal Fluid Gram Stain - Final 12/05/17 23:43 Peritoneal Fluid Body Fluid Culture - Preliminary Esbl Escherichia Coli Anne Marie Albicans 12/05/17 21:57 Blood Venous Aerobic Blood Culture - Preliminary No Growth Day 2 12/05/17 21:57 Blood Venous Anaerobic Blood Culture - Preliminary No Growth Day 2 12/05/17 21:42 Blood Venous Aerobic Blood Culture - Preliminary No Growth Day 2 12/05/17 21:42 Blood Venous Anaerobic Blood Culture - Preliminary No Growth Day 2 Assess/Plan/Problems-Billing Assessment: 42yo female PMH gastric bypass, kidney stones, recurrent UTI, ADHD, Bipolar disorder, p/w abdominal pain found to have internal hernia s/p ex lap and is POD #3 after a repeat ex-lap with closure of small jejeunal hole. Septic (resolved) . ESBL Ecoli in urine and peritoneal fluid, now on meropenem and TPN. - Patient Problems (1) Bowel perforation Current Visit: Yes Status: Acute Code(s): K63.1 - PERFORATION OF INTESTINE ( NONTRAUMATIC) SNOMED Code(s): 93582214 Comment: POD#3 exploratory laparotomy, found pinhole perforation in jejunum. Perforation repaired and PEG tube placed for decompression of stomach. Patient now clears, on TPN. ESBL Ecoli on Flagyl and now meropenem per sensitivities. Appreciate ID recs ( discussed with Dr. Smith). (2) Sepsis Current Visit: Yes Status: Acute Comment: Resolved. Hypotensive and tachypneic 2/3 sepsis 3 criteria. source ESBL ecoli 2/2 pinpoint bowel perf continue antibiotics as above. (3) Internal hernia Current Visit: Yes Status: Acute Code(s): K45.8 - OTH ABDOMINAL HERNIA WITHOUT OBSTRUCTION OR GANGRENE SNOMED Code(s): 40458260 Comment: s/p ex lap. (4) ADHD Current Visit: Yes Status: Acute Comment: Adderal held due to NPO. (5) Anemia Current Visit: Yes Status: Acute Code(s): D64.9 - ANEMIA, UNSPECIFIED SNOMED Code(s): 535872591 Comment: Microcytic, likely due to RISA from chronic iron malabsorption from gastric bypass. s/p 1u pRBC on 12/06. Hgb improved 8.9. On IV iron as per heme/ onc recs. Iron 17, Iron Sat 3%. Ferritin <10. (6) Anxiety and depression Current Visit: Yes Status: Acute Code(s): F41.8 - OTHER SPECIFIED ANXIETY DISORDERS SNOMED Code(s): 888465394 Comment: Buspar and antipsychotics held. (7) Bipolar disorder Current Visit: Yes Status: Acute Comment: Quetiapine, Abilify and Lamictal held due to NPO status. Monitor for sydnie. Currently euthymic. 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 Started on TPA and IV iron. (9) Kidney stone on left side Current Visit: Yes Status: Acute Code(s): N20.0 - CALCULUS OF KIDNEY SNOMED Code(s): 58357192 Comment: not seen on most recent imaging. Previously seen by urology in [place] with no intervention suggested. Patient has a family history of kidney stones. Recommend outpatient workup. Status and Disposition: surgery inpatient, medicine consulting. Attending: Kuldip Guevara
[2017-12-08] MEDS ORDERED: LORazepam INJ* 2 MG/ML 1 ML VIAL IV PRN (22:25)
[2017-12-08] MEDS ORDERED: LORazepam INJ* 2 MG/ML 1 ML VIAL ONE (22:29)
[2017-12-09] MEDS: Insulin LISPRO* 1 UNITS UNIT SUBCUT SCH ×5 (00:33→23:57)
[2017-12-09] MEDS: HYDROmorphone PCA* 20 MG/20 ML PCA.SYRING PCA SCH (00:35)
[2017-12-09] MEDS: Pantoprazole IV* 40 MG IV SCH (02:15)
[2017-12-09] MEDS: PROCHLORPERAZINE INJ 5 MG/ML 2 ML VIAL IV PRN ×2 (03:30→18:38)
[2017-12-09] MEDS: Meropenem 1 GM PREMIX(*) 1 GM/50 ML BAG IV SCH ×3 (05:43→21:23)
[2017-12-09 06:22] LABS: EGFR Non-African American 237.2 (>60)
[2017-12-09] MEDS: metroNIDAZOLE IV 500 MG/100ML* 500 MG/100 ML BAG IVPB SCH ×2 (06:25→17:31)
--- NOTE | 2017-12-09 08:39 | PN ---
Progress Note - Progress Note Date of Service: 12/09/17 SOAP: Subjective: Pain control is good. Mild nausea from abx. Passing flatus. Objective: Vital Signs Temp 99.0 F 12/09/17 03:33 Pulse 111 12/09/17 03:33 Resp 18 12/09/17 05:56 BP 120/68 12/09/17 03:33 Pulse Ox 100 12/09/17 05:56 Gen: appears in mild discomfort Lungs: CTA B; decr BS at bases. Abd: incis c/d/i; no erythema; soft; Gtube intact. Ext: warm, edematous. Intake & Output 12/08/17 12/09/17 12/09/17 18:59 06:59 18:59 Intake Total 1935 456 Output Total 1800 2545 550 Balance 135 -2088 -550 Weight 148 lb Intake: IV Fluids 555 256 Ferrous Gluconate 125 Meropenem 256 NS (0.9%) 430 TPN/PPN 1150 Oral 230 200 Output: G Tube 150 20 Urine 1650 2525 550 Other: # Bowel Movements 0 0 Laboratory Results - last 24 hr 12/08/17 12/08/17 12/08/17 06:32 08:30 08:30 WBC 20.3 H RBC 3.17 L Hgb 8.9 L Hct 24 L MCV 75 L MCH 28 MCHC 37 H RDW 17 H Plt Count 241 MPV 8 Neut % (Auto) Not Reportable Lymph % (Auto) Not Reportable Armstrong % (Auto) Not Reportable Eos % (Auto) Not Reportable Baso % (Auto) Not Reportable Absolute Neuts (auto) Not Reportable Absolute Lymphs (auto) Not Reportable Absolute Monos (auto) Not Reportable Absolute Eos (auto) Not Reportable Absolute Basos (auto) Not Reportable Absolute Nucleated RBC Not Reportable Immature Gran % 8 Neutrophils % 65 Band Neutrophils % 8 Lymphocytes % 7 L Monocytes % 4 Eosinophils % 1 Basophils % 0 Metamyelocytes % 4 H Myelocytes % 11 H Nucleated RBC % Not Reportable Abs Neuts (Manual) 13.1 H Abs Lymphs (Manual) 1.4 Abs Monocytes (Manual) 0.8 Absolute Eos (Manual) 0.2 Abs Basophils (Manual) 0 Normal RBC Morphology Not Reportable Elliptocytes 1+ Acanthocytes (Spur) 2+ Sodium 123 L D Potassium TNP Chloride 99 L Carbon Dioxide 23 Anion Gap 1 L BUN 10 Creatinine 0.33 L Est GFR ( Amer) 283.9 Est GFR (Non-Af Amer) 220.7 BUN/Creatinine Ratio 30.3 H Glucose 351 H POC Glucose (mg/dL) 145 H Calcium 7.8 L 12/08/17 12/08/17 12/08/17 10:58 12:09 17:44 WBC RBC Hgb Hct MCV MCH MCHC RDW Plt Count MPV Neut % (Auto) Lymph % (Auto) Armstrong % (Auto) Eos % (Auto) Baso % (Auto) Absolute Neuts (auto) Absolute Lymphs (auto) Absolute Monos (auto) Absolute Eos (auto) Absolute Basos (auto) Absolute Nucleated RBC Immature Gran % Neutrophils % Band Neutrophils % Lymphocytes % Monocytes % Eosinophils % Basophils % Metamyelocytes % Myelocytes % Nucleated RBC % Abs Neuts (Manual) Abs Lymphs (Manual) Abs Monocytes (Manual) Absolute Eos (Manual) Abs Basophils (Manual) Normal RBC Morphology Elliptocytes Acanthocytes (Spur) Sodium Potassium 3.3 L Chloride Carbon Dioxide Anion Gap BUN Creatinine Est GFR ( Amer) Est GFR (Non-Af Amer) BUN/Creatinine Ratio Glucose POC Glucose (mg/dL) 131 H 111 H Calcium 12/09/17 12/09/17 12/09/17 00:23 05:21 05:48 WBC RBC Hgb Hct MCV MCH MCHC RDW Plt Count MPV Neut % (Auto) Lymph % (Auto) Armstrong % (Auto) Eos % (Auto) Baso % (Auto) Absolute Neuts (auto) Absolute Lymphs (auto) Absolute Monos (auto) Absolute Eos (auto) Absolute Basos (auto) Absolute Nucleated RBC Immature Gran % Neutrophils % Band Neutrophils % Lymphocytes % Monocytes % Eosinophils % Basophils % Metamyelocytes % Myelocytes % Nucleated RBC % Abs Neuts (Manual) Abs Lymphs (Manual) Abs Monocytes (Manual) Absolute Eos (Manual) Abs Basophils (Manual) Normal RBC Morphology Elliptocytes Acanthocytes (Spur) Sodium 132 L D Potassium 3.4 L Chloride 103 Carbon Dioxide 26 Anion Gap 3 BUN 9 Creatinine 0.31 L Est GFR ( Amer) 305.1 Est GFR (Non-Af Amer) 237.2 BUN/Creatinine Ratio 29.0 H Glucose 106 H POC Glucose (mg/dL) 158 H 154 H Calcium 7.5 L 12/09/17 07:30 WBC RBC Hgb Hct MCV MCH MCHC RDW Plt Count MPV Neut % (Auto) Lymph % (Auto) Armstrong % (Auto) Eos % (Auto) Baso % (Auto) Absolute Neuts (auto) Absolute Lymphs (auto) Absolute Monos (auto) Absolute Eos (auto) Absolute Basos (auto) Absolute Nucleated RBC Immature Gran % Neutrophils % Band Neutrophils % Lymphocytes % Monocytes % Eosinophils % Basophils % Metamyelocytes % Myelocytes % Nucleated RBC % Abs Neuts (Manual) Abs Lymphs (Manual) Abs Monocytes (Manual) Absolute Eos (Manual) Abs Basophils (Manual) Normal RBC Morphology Elliptocytes Acanthocytes (Spur) Sodium Potassium Chloride Carbon Dioxide Anion Gap BUN Creatinine Est GFR ( Amer) Est GFR (Non-Af Amer) BUN/Creatinine Ratio Glucose POC Glucose (mg/dL) 121 H Calcium Assessment: POD#3 s/p exlap for SBO and repair perf/POD#7 s/p repair internal hernia. SBO with perf and peritonitis improving on IV abx. Malnutrition. Chronic iron deficiency anemia, Post Bariatric surgery -->IV iron. Plan: Adv diet. Cap G-tube and check residual. Shower. Cont TPN for now. Abx per ID.
--- NOTE | 2017-12-09 16:38 | PN ---
Subjective Date of Service: 12/09/17 Interval History: Walking a lot, three times by mid day. Using incentive spirometer. Urinating frequently. Tachy trend to 90-100s. Tmax 99.8 4pm yesterday. Feeling better. PEG capped. diet advanced further. 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 .change Q24H [facility]; Per Protocol PRN Reason: Protocol Last Admin: 12/09/17 00:35 Dose: 20 mls/hr Sodium Chloride (Ns 0.9% 1000 Ml*) 1,000 mls @ 30 mls/hr IV .KVO [facility] PRN Reason: KVO Metronidazole/Sodium Chloride (Flagyl 500 Mg Ivpb*) 500 mg in 100 mls @ 100 mls /hr IVPB 0600,1800 [facility] Last Admin: 12/09/17 06:25 Dose: 100 mls/hr Meropenem (Merrem 1 Gm Premix(*)) 1 gm in 50 mls @ 100 mls/hr IV Q8H [facility] Last Admin: 12/09/17 13:06 Dose: 100 mls/hr Dextrose 500 ml/ Amino Acids 850 ml/ Sterile Water 150 ml/Fat Emulsion Intravenous 250 ml/ Sodium Chloride 100 meq/Potassium Chloride 50 meq/Potassium Phosphate 15 mmole/Calcium Gluconate 15 meq/Magnesium Sulfate 10 meq/ Multivitamins 10 ml/ Trace Metals 1 ml/ Nutrition ( Parenteral) 1,850.721 mls @ 77.113 mls/hr CENTR 1700 [facility] Last Admin: 12/08/17 17:03 Dose: 77.113 mls/hr Insulin Human Lispro (Humalog*) 0 units SUBCUT Q6HR [facility] PRN Reason: Protocol Last Admin: 12/09/17 13:08 Dose: 1 unit Lorazepam (Ativan Inj*) 0.5 mg IV BEDTIME PRN PRN Reason: SLEEP Last Admin: 12/08/17 22:36 Dose: 0.5 mg Pantoprazole Sodium (Protonix Iv*) 40 mg IV Q24H [facility] Last Admin: 12/09/17 02:15 Dose: 40 mg Prochlorperazine Edisylate (Compazine Inj*) 10 mg IV Q6H PRN PRN Reason: NAUSEA/VOMITING Last Admin: 12/09/17 03:30 Dose: 10 mg Vital Signs - 8 hr 12/09/17 12/09/17 12/09/17 10:00 11:54 12:00 Temperature 99.6 F Pulse Rate 104 Respiratory 16 17 16 Rate Blood Pressure 117/58 (mmHg) O2 Sat by Pulse 97 96 98 Oximetry 12/09/17 12/09/17 14:00 15:42 Temperature 99.3 F Pulse Rate 101 Respiratory 16 16 Rate Blood Pressure 117/54 (mmHg) O2 Sat by Pulse 95 99 Oximetry Oxygen Devices in Use Now: None Appearance: NAD, more energetic Eyes: No Scleral Icterus, PERRLA Ears/Nose/Mouth/Throat: NL Teeth, Lips, Gums, Mucous Membranes Moist Neck: NL Appearance and Movements; NL JVP Respiratory: - - reduced at b/l bases. no wheezing or rhonchi Cardiovascular: NL Sounds; No Murmurs; No JVD, RRR Abdominal: - - soft, minimally tender. midline suzan and small areas of packing. PEG LUQ capped. Extremities: - - nonpitting edema b/l legs Skin: No Rash or Ulcers, No Nodules or Sclerosis Neurological: Alert and Oriented x 3, NL Sensation, NL Muscle Strength and Tone Result Diagrams: 12/08/17 08:30 12/09/17 05:48 Additional Lab and Data: Laboratory Results - last 24 hr 12/08/17 12/08/17 12/09/17 12:09 17:44 00:23 Sodium Potassium Chloride Carbon Dioxide Anion Gap BUN Creatinine Est GFR ( Amer) Est GFR (Non-Af Amer) BUN/Creatinine Ratio Glucose POC Glucose (mg/dL) 131 H 111 H 158 H Calcium 12/09/17 12/09/17 12/09/17 05:21 05:48 07:30 Sodium 132 L D Potassium 3.4 L Chloride 103 Carbon Dioxide 26 Anion Gap 3 BUN 9 Creatinine 0.31 L Est GFR ( Amer) 305.1 Est GFR (Non-Af Amer) 237.2 BUN/Creatinine Ratio 29.0 H Glucose 106 H POC Glucose (mg/dL) 154 H 121 H Calcium 7.5 L 12/09/17 11:51 Sodium Potassium Chloride Carbon Dioxide Anion Gap BUN Creatinine Est GFR ( Amer) Est GFR (Non-Af Amer) BUN/Creatinine Ratio Glucose POC Glucose (mg/dL) 164 H Calcium Microbiology and Other Data: Microbiology 12/05/17 23:43 Peritoneal Fluid Gram Stain - Final 12/05/17 23:43 Peritoneal Fluid Body Fluid Culture - Final Esbl Escherichia Coli Anne Marie Albicans Lactobacillus Species 12/05/17 21:57 Blood Venous Aerobic Blood Culture - Preliminary No Growth Day 3 12/05/17 21:57 Blood Venous Anaerobic Blood Culture - Preliminary No Growth Day 3 12/05/17 21:42 Blood Venous Aerobic Blood Culture - Preliminary No Growth Day 3 12/05/17 21:42 Blood Venous Anaerobic Blood Culture - Preliminary No Growth Day 3 12/06/17 02:40 Nasal Nasal Screen MRSA (PCR)(ELROY) - Final Mrsa Negative 18 23:53 Urine Urine Culture - Final Esbl Escherichia Coli Normal Charisma Assess/Plan/Problems-Billing Assessment: 42yo female PMH gastric bypass, kidney stones, recurrent UTI, ADHD, Bipolar disorder, p/w abdominal pain found to have internal hernia s/p ex lap and is POD #4 after a repeat ex-lap with closure of small jejeunal hole. Septic (resolved) . ESBL Ecoli in urine and peritoneal fluid, now on meropenem and TPN. - Patient Problems (1) Bowel perforation Current Visit: Yes Status: Acute Code(s): K63.1 - PERFORATION OF INTESTINE ( NONTRAUMATIC) SNOMED Code(s): 20804329 Comment: POD#4 exploratory laparotomy, found pinhole perforation in jejunum. Perforation repaired and PEG tube placed for decompression of stomach. Patient now bariatric regular + TPN. ESBL Ecoli on Flagyl and now meropenem per sensitivities. Appreciate ID recs ( discussed with Dr. Smith). Anne Marie and lactobacillus as well. (2) Sepsis Current Visit: Yes Status: Acute Comment: Resolved. Hypotensive and tachypneic 2/3 sepsis 3 criteria. source ESBL ecoli 2/2 pinpoint bowel perf continue antibiotics as above. (3) Internal hernia Current Visit: Yes Status: Acute Code(s): K45.8 - OTH ABDOMINAL HERNIA WITHOUT OBSTRUCTION OR GANGRENE SNOMED Code(s): 10742055 Comment: s/p ex lap. (4) ADHD Current Visit: Yes Status: Acute Comment: restart adderal as no longer npo (5) Anemia Current Visit: Yes Status: Acute Code(s): D64.9 - ANEMIA, UNSPECIFIED SNOMED Code(s): 580413255 Comment: Microcytic, likely due to RISA from chronic iron malabsorption from gastric bypass. s/p 1u pRBC on 12/06. Hgb improved 8.9 (12/08). On IV iron as per heme/onc recs. Iron 17, Iron Sat 3%. Ferritin <10. (6) Anxiety and depression Current Visit: Yes Status: Acute Code(s): F41.8 - OTHER SPECIFIED ANXIETY DISORDERS SNOMED Code(s): 884847234 Comment: recommend restart home Buspar and antipsychotics given no longer npo (7) Bipolar disorder Current Visit: Yes Status: Acute Comment: recommend restart Quetiapine, Abilify and Lamictal given no longer NPO. 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 Started on TPA and IV iron. (9) Kidney stone on left side Current Visit: Yes Status: Acute Code(s): N20.0 - CALCULUS OF KIDNEY SNOMED Code(s): 43569754 Comment: not seen on most recent imaging. Previously seen by urology in [place] with no intervention suggested. Patient has a family history of kidney stones. Recommend outpatient workup. Status and Disposition: surgery inpatient, medicine consulting. Attending: Kuldip Guevara
[2017-12-09] MEDS: TPN* 24 HR with Dextrose 50% Water* 500 ML, Amino Acid Infusion 10%* 850 ML, Sterile Wa... CENTR SCH ×12 (17:28)
[2017-12-09] MEDS: cloNIDine TAB* 0.1 MG PO SCH (21:04)
[2017-12-09] MEDS: busPIRone TAB* 10 MG PO PRN (21:04)
[2017-12-09] MEDS: Heparin VIAL(*) 5000 UNITS/ML VIAL (FIVE THOUSAND) SUBCUT SCH (21:04)
[2017-12-09] MEDS: lamoTRIgine TAB(*) 100 MG PO SCH (21:04)
[2017-12-09] MEDS: QUEtiapine TAB* 100 MG PO SCH (21:04)
[2017-12-09 21:12] LABS: INR 1.09 (0.77-1.02)
[2017-12-09 21:13] LABS: EGFR Non-African American 237.2 (>60)
[2017-12-09 21:23] LABS: Hematocrit 25 % (35-47); Hemoglobin 8.2 g/dl (12.0-16.0); Mean Corpuscular HGB Conc 32 g/dl (31-36); Mean Corpuscular Hemoglobin 24 pg (27-31); Mean Corpuscular Volume 74 fL (80-97); Mean Platelet Volume 8 um3 (7.4-10.4); Platelet Count 307 10^3/ul (150-450); Red Blood Count 3.41 10^6/ul (4.0-5.4); Red Cell Distribution Width 17 % (10.5-15); White Blood Count 26.9 10^3/ul (3.5-10.8)
[2017-12-09 21:27] LABS: Monocytes % 5 % (0-13)
[2017-12-10] MEDS: Pantoprazole IV* 40 MG IV SCH (02:46)
[2017-12-10] MEDS: Meropenem 1 GM PREMIX(*) 1 GM/50 ML BAG IV SCH ×3 (04:01→21:23)
[2017-12-10] MEDS: metroNIDAZOLE IV 500 MG/100ML* 500 MG/100 ML BAG IVPB SCH ×2 (05:06→18:41)
[2017-12-10] MEDS: Insulin LISPRO* 1 UNITS UNIT SUBCUT SCH ×3 (05:55→18:38)
[2017-12-10] MEDS: Heparin VIAL(*) 5000 UNITS/ML VIAL (FIVE THOUSAND) SUBCUT SCH ×3 (06:21→21:25)
[2017-12-10] MEDS: busPIRone TAB* 10 MG PO PRN (06:21)
[2017-12-10 07:03] LABS: EGFR Non-African American 266.8 (>60)
[2017-12-10 08:40] LABS: ABS Basophils 0 10^3/ul (0-0.2); ABS Eosinophils 0.4 10^3/ul (0-0.6); ABS Lymphocytes 2.1 10^3/ul (1.0-4.8); ABS Monocytes 1.9 10^3/ul (0-0.8); ABS Neutrophils 19.8 10^3/ul (1.5-7.7); ABS Nucleated RBC 0 10^3/ul; Eosinophil % 1.8 % (0-6); Hematocrit 25 % (35-47); Hemoglobin 8.1 g/dl (12.0-16.0); Lymphocyte % 8.7 % (25-47); Mean Corpuscular HGB Conc 32 g/dl (31-36); Mean Corpuscular Hemoglobin 24 pg (27-31); Mean Corpuscular Volume 74 fL (80-97); Mean Platelet Volume 8 um3 (7.4-10.4); Nucleated Red Blood Cells % 0; Platelet Count 320 10^3/ul (150-450); Red Blood Count 3.37 10^6/ul (4.0-5.4); Red Cell Distribution Width 17 % (10.5-15); White Blood Count 24.3 10^3/ul (3.5-10.8)
[2017-12-10] MEDS: lamoTRIgine TAB(*) 100 MG PO SCH ×2 (08:56→21:17)
[2017-12-10] MEDS: ARIPiprazole TAB* 2 MG PO SCH (08:56)
[2017-12-10] MEDS: cloNIDine TAB* 0.1 MG PO SCH ×2 (08:57→21:19)
[2017-12-10] MEDS: Amphetamine MIXED SALT TAB* 10 MG TAB PO SCH ×2 (08:57→16:39)
--- NOTE | 2017-12-10 10:45 | PN ---
Progress Note - Progress Note Date of Service: 12/10/17 SOAP: Subjective: She had L flank pain and RLQ abd "hard" spot that got better when the Gtube was unclamped. She just showered and feels ok. Doing spirometry well. Reports heavy period (typical) associated with lower abd pain that can be severe. Passing some flatus and belching. Objective: Vital Signs Temp 98.1 F 12/10/17 07:24 Pulse 88 12/10/17 07:24 Resp 16 12/10/17 10:37 BP 102/50 12/10/17 07:24 Pulse Ox 100 12/10/17 10:37 Gen: sitting up in bed; appears mildly uncomfortable. Abd: soft, incision c/d/i; no erythema; packing changed; mildly tender; Gtube with bile-tinged o/p; flushed with scant residual. Intake & Output 12/09/17 12/10/17 12/10/17 18:59 06:59 18:59 Intake Total 2089 700 Output Total 2755 1040 0 Balance -666 -340 0 Weight 143 lb 3.2 oz Intake: IV Fluids 55 Meropenem 55 TPN/PPN 1754 Oral 220 700 Tube Feeding Flush Amount 60 Output: G Tube 330 90 Urine 2425 950 0 Other: # Bowel Movements 0 Laboratory Results - last 24 hr 12/09/17 12/09/17 12/09/17 11:51 17:35 20:45 WBC RBC Hgb Hct MCV MCH MCHC RDW Plt Count MPV Neut % (Auto) Lymph % (Auto) Gaines % (Auto) Eos % (Auto) Baso % (Auto) Absolute Neuts (auto) Absolute Lymphs (auto) Absolute Monos (auto) Absolute Eos (auto) Absolute Basos (auto) Absolute Nucleated RBC Immature Gran % Neutrophils % Band Neutrophils % Lymphocytes % Monocytes % Eosinophils % Basophils % Metamyelocytes % Myelocytes % Nucleated RBC % Abs Neuts (Manual) Abs Lymphs (Manual) Abs Monocytes (Manual) Absolute Eos (Manual) Abs Basophils (Manual) Toxic Granulation Normal RBC Morphology INR (Anticoag Therapy) 1.09 H APTT 30.5 Sodium Potassium Chloride Carbon Dioxide Anion Gap BUN Creatinine Est GFR ( Amer) Est GFR (Non-Af Amer) BUN/Creatinine Ratio Glucose POC Glucose (mg/dL) 164 H 125 H Calcium 12/09/17 12/09/17 12/09/17 20:45 20:45 23:53 WBC 26.9 H RBC 3.41 L Hgb 8.2 L Hct 25 L MCV 74 L MCH 24 L MCHC 32 RDW 17 H Plt Count 307 MPV 8 Neut % (Auto) Not Reportable Lymph % (Auto) Not Reportable Gaines % (Auto) Not Reportable Eos % (Auto) Not Reportable Baso % (Auto) Not Reportable Absolute Neuts (auto) Not Reportable Absolute Lymphs (auto) Not Reportable Absolute Monos (auto) Not Reportable Absolute Eos (auto) Not Reportable Absolute Basos (auto) Not Reportable Absolute Nucleated RBC Not Reportable Immature Gran % 2 Neutrophils % 80 Band Neutrophils % 2 Lymphocytes % 9 L Monocytes % 5 Eosinophils % 0 Basophils % 0 Metamyelocytes % 2 Myelocytes % 2 H Nucleated RBC % Not Reportable Abs Neuts (Manual) 21.5 H Abs Lymphs (Manual) 2.4 Abs Monocytes (Manual) 1.3 H Absolute Eos (Manual) 0 Abs Basophils (Manual) 0 Toxic Granulation 2+ Normal RBC Morphology Not Reportable INR (Anticoag Therapy) APTT Sodium Potassium Chloride Carbon Dioxide Anion Gap BUN 9 Creatinine 0.31 L Est GFR ( Amer) 305.1 Est GFR (Non-Af Amer) 237.2 BUN/Creatinine Ratio Glucose POC Glucose (mg/dL) 158 H Calcium 12/10/17 12/10/17 12/10/17 05:53 06:33 06:33 WBC 24.3 H RBC 3.37 L Hgb 8.1 L Hct 25 L MCV 74 L MCH 24 L MCHC 32 RDW 17 H Plt Count 320 MPV 8 Neut % (Auto) 81.4 Lymph % (Auto) 8.7 L Gaines % (Auto) 7.9 Eos % (Auto) 1.8 Baso % (Auto) 0.2 Absolute Neuts (auto) 19.8 H Absolute Lymphs (auto) 2.1 Absolute Monos (auto) 1.9 H Absolute Eos (auto) 0.4 Absolute Basos (auto) 0 Absolute Nucleated RBC 0 Immature Gran % Neutrophils % Band Neutrophils % Lymphocytes % Monocytes % Eosinophils % Basophils % Metamyelocytes % Myelocytes % Nucleated RBC % 0 Abs Neuts (Manual) Abs Lymphs (Manual) Abs Monocytes (Manual) Absolute Eos (Manual) Abs Basophils (Manual) Toxic Granulation Normal RBC Morphology INR (Anticoag Therapy) APTT Sodium 134 Potassium 3.7 Chloride 105 Carbon Dioxide 25 Anion Gap 4 BUN 10 Creatinine 0.28 L Est GFR ( Amer) 343.1 Est GFR (Non-Af Amer) 266.8 BUN/Creatinine Ratio 35.7 H Glucose 109 H POC Glucose (mg/dL) 141 H Calcium 7.6 L Assessment: POD#4 s/p exlap for SBO and repair perf/POD#8 s/p repair internal hernia. SBO with perf and peritonitis improving on IV abx. Malnutrition on TPN Chronic iron deficiency anemia, Post Bariatric surgery -->IV iron. Plan: Will cont TPN until able to ty adequate po. Will start Gtube feeds when able ( tomorrow?). Cont antibiotics per ID (coverage for yeast?) Cont packing wound until POD#6 at most.
--- NOTE | 2017-12-10 14:56 | PN ---
Subjective Date of Service: 12/10/17 Interval History: Sensation of fullness in right abdomen yesterday with improvement after fluid drained from PEG. Still on FISH CULTURIST. back pressure and abd pressure though stable. Walking, Using IS but placed on oxygen at night. Urinating a lot. Tmax 99.6 noon yest. WBC uptrend. Eating small amounts of regular diet. Family History: Unchanged from Admission Social History: Unchanged from Admission Past Medical History: Unchanged from Admission Objective Active Medications: Amphetamine/Dextroamphetamine (Adderall Tab*) 10 mg PO 0900,1600 [facility] Last Admin: 12/10/17 08:57 Dose: 10 mg Aripiprazole (Abilify Tab*) 2 mg PO DAILY [facility] Last Admin: 12/10/17 08:56 Dose: 2 mg Buspirone HCl (Buspar Tab*) 10 mg PO TID PRN PRN Reason: ANXIETY Last Admin: 12/10/17 06:21 Dose: 10 mg Clonidine HCl (Catapres Tab*) 0.1 mg PO BID [facility] Last Admin: 12/10/17 08:57 Dose: 0.1 mg Dextrose (D50w Syringe 50 Ml*) 12.5 gm IV PUSH .FOR FS < 60 - SS PRN PRN Reason: FS < 60 Heparin Sodium (Porcine) (Heparin Flush Picc/Ml/Cvc(*)) 0 ml FLUSH 0600,1800 [facility] PRN Reason: Protocol Last Admin: 12/10/17 05:55 Dose: Not Given Heparin Sodium (Porcine) (Heparin Vial(*)) 5,000 units SUBCUT Q8HR [facility] Last Admin: 12/10/17 13:33 Dose: 5,000 units Hydromorphone HCl (Dilaudid Tire Recapper*) 20 mg in 20 mls @ 0 mls/hr FISH CULTURIST .change Q24H [facility]; Per Protocol PRN Reason: Protocol Last Admin: 12/09/17 00:35 Dose: 20 mls/hr Sodium Chloride (Ns 0.9% 1000 Ml*) 1,000 mls @ 30 mls/hr IV .KVO [facility] PRN Reason: KVO Metronidazole/Sodium Chloride (Flagyl 500 Mg Ivpb*) 500 mg in 100 mls @ 100 mls /hr IVPB 0600,1800 [facility] Last Admin: 12/10/17 05:06 Dose: 100 mls/hr Meropenem (Merrem 1 Gm Premix(*)) 1 gm in 50 mls @ 100 mls/hr IV Q8H [facility] Last Admin: 12/10/17 12:48 Dose: 100 mls/hr Dextrose 500 ml/ Amino Acids 850 ml/ Sterile Water 150 ml/Fat Emulsion Intravenous 250 ml/ Sodium Chloride 100 meq/Potassium Chloride 50 meq/Potassium Phosphate 15 mmole/Calcium Gluconate 15 meq/Magnesium Sulfate 10 meq/ Multivitamins 10 ml/ Trace Metals 1 ml/ Nutrition ( Parenteral) 1,850.721 mls @ 77.113 mls/hr CENTR 1700 [facility] Last Admin: 12/09/17 17:28 Dose: 77.113 mls/hr Ferric Sodium Gluconate Complex 125 mg/ Sodium Chloride 110 mls @ 110 mls/hr IVPB ONCE ONE Stop: 12/12/17 10:59 Insulin Human Lispro (Humalog*) 0 units SUBCUT Q6HR [facility] PRN Reason: Protocol Last Admin: 12/10/17 12:21 Dose: 1 unit Lamotrigine (Lamictal Tab(*)) 150 mg PO BID [facility] Last Admin: 12/10/17 08:56 Dose: 150 mg Lorazepam (Ativan Inj*) 0.5 mg IV BEDTIME PRN PRN Reason: SLEEP Last Admin: 12/08/17 22:36 Dose: 0.5 mg Pantoprazole Sodium (Protonix Iv*) 40 mg IV Q24H [facility] Last Admin: 12/10/17 02:46 Dose: 40 mg Prochlorperazine Edisylate (Compazine Inj*) 10 mg IV Q6H PRN PRN Reason: NAUSEA/VOMITING Last Admin: 12/09/17 18:38 Dose: 10 mg Quetiapine Fumarate (Seroquel Tab*) 150 mg PO BEDTIME [facility] Last Admin: 12/09/17 21:04 Dose: 150 mg Vital Signs - 8 hr 12/10/17 12/10/17 12/10/17 07:24 08:00 10:37 Temperature 98.1 F Pulse Rate 88 Respiratory 16 16 16 Rate Blood Pressure 102/50 (mmHg) O2 Sat by Pulse 100 100 100 Oximetry 12/10/17 12/10/17 12/10/17 11:32 12:00 14:34 Temperature 97.7 F Pulse Rate 96 Respiratory 16 16 16 Rate Blood Pressure 109/61 (mmHg) O2 Sat by Pulse 100 99 98 Oximetry Oxygen Devices in Use Now: None Appearance: NAD Eyes: No Scleral Icterus, PERRLA Ears/Nose/Mouth/Throat: NL Teeth, Lips, Gums Neck: NL Appearance and Movements; NL JVP Respiratory: - - decreased at b/l bases. No wheezing or rhonchi. Abdominal: - - midline incsion, packing just changed. PEG LUQ. minimally tender diffusely though on FISH CULTURIST. Extremities: - - nonpitting edema Skin: No Rash or Ulcers, No Nodules or Sclerosis Neurological: Alert and Oriented x 3, NL Sensation, NL Muscle Strength and Tone Nutrition: Taking PO's, TPN Result Diagrams: 12/10/17 06:33 12/10/17 06:33 Additional Lab and Data: Laboratory Results - last 24 hr 12/09/17 12/09/17 12/09/17 17:35 20:45 20:45 WBC RBC Hgb Hct MCV MCH MCHC RDW Plt Count MPV Neut % (Auto) Lymph % (Auto) [place] % (Auto) Eos % (Auto) Baso % (Auto) Absolute Neuts (auto) Absolute Lymphs (auto) Absolute Monos (auto) Absolute Eos (auto) Absolute Basos (auto) Absolute Nucleated RBC Immature Gran % Neutrophils % Band Neutrophils % Lymphocytes % Monocytes % Eosinophils % Basophils % Metamyelocytes % Myelocytes % Nucleated RBC % Abs Neuts (Manual) Abs Lymphs (Manual) Abs Monocytes (Manual) Absolute Eos (Manual) Abs Basophils (Manual) Toxic Granulation Normal RBC Morphology INR (Anticoag Therapy) 1.09 H APTT 30.5 Sodium Potassium Chloride Carbon Dioxide Anion Gap BUN 9 Creatinine 0.31 L Est GFR ( Amer) 305.1 Est GFR (Non-Af Amer) 237.2 BUN/Creatinine Ratio Glucose POC Glucose (mg/dL) 125 H Calcium 12/09/17 12/09/17 12/10/17 20:45 23:53 05:53 WBC 26.9 H RBC 3.41 L Hgb 8.2 L Hct 25 L MCV 74 L MCH 24 L MCHC 32 RDW 17 H Plt Count 307 MPV 8 Neut % (Auto) Not Reportable Lymph % (Auto) Not Reportable [place] % (Auto) Not Reportable Eos % (Auto) Not Reportable Baso % (Auto) Not Reportable Absolute Neuts (auto) Not Reportable Absolute Lymphs (auto) Not Reportable Absolute Monos (auto) Not Reportable Absolute Eos (auto) Not Reportable Absolute Basos (auto) Not Reportable Absolute Nucleated RBC Not Reportable Immature Gran % 2 Neutrophils % 80 Band Neutrophils % 2 Lymphocytes % 9 L Monocytes % 5 Eosinophils % 0 Basophils % 0 Metamyelocytes % 2 Myelocytes % 2 H Nucleated RBC % Not Reportable Abs Neuts (Manual) 21.5 H Abs Lymphs (Manual) 2.4 Abs Monocytes (Manual) 1.3 H Absolute Eos (Manual) 0 Abs Basophils (Manual) 0 Toxic Granulation 2+ Normal RBC Morphology Not Reportable INR (Anticoag Therapy) APTT Sodium Potassium Chloride Carbon Dioxide Anion Gap BUN Creatinine Est GFR ( Amer) Est GFR (Non-Af Amer) BUN/Creatinine Ratio Glucose POC Glucose (mg/dL) 158 H 141 H Calcium 12/10/17 12/10/17 12/10/17 06:33 06:33 11:54 WBC 24.3 H RBC 3.37 L Hgb 8.1 L Hct 25 L MCV 74 L MCH 24 L MCHC 32 RDW 17 H Plt Count 320 MPV 8 Neut % (Auto) 81.4 Lymph % (Auto) 8.7 L [place] % (Auto) 7.9 Eos % (Auto) 1.8 Baso % (Auto) 0.2 Absolute Neuts (auto) 19.8 H Absolute Lymphs (auto) 2.1 Absolute Monos (auto) 1.9 H Absolute Eos (auto) 0.4 Absolute Basos (auto) 0 Absolute Nucleated RBC 0 Immature Gran % Neutrophils % Band Neutrophils % Lymphocytes % Monocytes % Eosinophils % Basophils % Metamyelocytes % Myelocytes % Nucleated RBC % 0 Abs Neuts (Manual) Abs Lymphs (Manual) Abs Monocytes (Manual) Absolute Eos (Manual) Abs Basophils (Manual) Toxic Granulation Normal RBC Morphology INR (Anticoag Therapy) APTT Sodium 134 Potassium 3.7 Chloride 105 Carbon Dioxide 25 Anion Gap 4 BUN 10 Creatinine 0.28 L Est GFR ( Amer) 343.1 Est GFR (Non-Af Amer) 266.8 BUN/Creatinine Ratio 35.7 H Glucose 109 H POC Glucose (mg/dL) 152 H Calcium 7.6 L Microbiology and Other Data: Microbiology 12/05/17 23:43 Peritoneal Fluid Gram Stain - Final 12/05/17 23:43 Peritoneal Fluid Body Fluid Culture - Final Esbl Escherichia Coli Anne Marie Albicans Lactobacillus Species 12/05/17 21:57 Blood Venous Aerobic Blood Culture - Preliminary No Growth Day 4 12/05/17 21:57 Blood Venous Anaerobic Blood Culture - Preliminary No Growth Day 4 12/05/17 21:42 Blood Venous Aerobic Blood Culture - Preliminary No Growth Day 4 12/05/17 21:42 Blood Venous Anaerobic Blood Culture - Preliminary No Growth Day 4 12/06/17 02:40 Nasal Nasal Screen MRSA (PCR)([facility]) - Final Mrsa Negative 12/01/17 23:53 Urine Urine Culture - Final Esbl Escherichia Coli Normal Charisma Assess/Plan/Problems-Billing Assessment: 42yo female PMH gastric bypass, kidney stones, recurrent UTI, ADHD, Bipolar disorder, p/w abdominal pain found to have internal hernia s/p ex lap and is POD #4 after a repeat ex-lap with closure of small jejeunal hole. Septic (resolved) . ESBL Ecoli in urine and peritoneal fluid, now on meropenem and TPN+ regular diet. - Patient Problems (1) Bowel perforation Current Visit: Yes Status: Acute Code(s): K63.1 - PERFORATION OF INTESTINE ( NONTRAUMATIC) SNOMED Code(s): 39593884 Comment: POD#4 exploratory laparotomy, found pinhole perforation in jejunum. Perforation repaired and PEG tube placed for decompression of stomach. Patient now bariatric regular + TPN. planned TFs soon. ESBL Ecoli on Flagyl and now meropenem per sensitivities. Appreciate ID recs. Anne Marie and lactobacillus as well, discussed with Dr. Rodriguez and not wanting to expand coverage at this time. (2) Sepsis Current Visit: Yes Status: Acute Comment: Resolved. Hypotensive and tachypneic 2/3 sepsis 3 criteria. source ESBL ecoli 2/2 pinpoint bowel perf continue antibiotics as above. (3) Internal hernia Current Visit: Yes Status: Acute Code(s): K45.8 - OTH ABDOMINAL HERNIA WITHOUT OBSTRUCTION OR GANGRENE SNOMED Code(s): 58466184 Comment: s/p ex lap. 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 s/p 1u pRBC on 12/06. Hgb improved 8.9 (12/08). On IV iron as per heme/onc recs. Iron 17, Iron Sat 3%. Ferritin <10. 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 Started on TPA and IV iron. (9) Kidney stone on left side Current Visit: Yes Status: Acute Code(s): N20.0 - CALCULUS OF KIDNEY SNOMED Code(s): 50887911 Comment: not seen on most recent imaging. Previously seen by urology in [place] with no intervention suggested. Patient has a family history of kidney stones. Recommend outpatient workup. Status and Disposition: surgery inpatient, medicine consulting. Attending: Kuldip Guevara
[2017-12-10] MEDS: TPN* 24 HR with Dextrose 50% Water* 500 ML, Amino Acid Infusion 10%* 850 ML, Sterile Wa... CENTR SCH ×12 (16:39)
[2017-12-10] MEDS: QUEtiapine TAB* 100 MG PO SCH (21:18)
[2017-12-11] MEDS: HYDROmorphone PCA* 20 MG/20 ML PCA.SYRING PCA SCH (00:12)
[2017-12-11] MEDS: Insulin LISPRO* 1 UNITS UNIT SUBCUT SCH ×5 (00:19→23:36)
[2017-12-11] MEDS: Pantoprazole IV* 40 MG IV SCH (02:02)
[2017-12-11] MEDS: Meropenem 1 GM PREMIX(*) 1 GM/50 ML BAG IV SCH ×3 (05:09→21:04)
[2017-12-11] MEDS: metroNIDAZOLE IV 500 MG/100ML* 500 MG/100 ML BAG IVPB SCH (05:55)
[2017-12-11] MEDS: Heparin VIAL(*) 5000 UNITS/ML VIAL (FIVE THOUSAND) SUBCUT SCH ×3 (05:57→21:58)
[2017-12-11] MEDS: ARIPiprazole TAB* 2 MG PO SCH (08:38)
[2017-12-11] MEDS: Amphetamine MIXED SALT TAB* 10 MG TAB PO SCH ×2 (08:38→16:54)
[2017-12-11] MEDS: lamoTRIgine TAB(*) 100 MG PO SCH ×2 (08:39→21:01)
[2017-12-11] MEDS: cloNIDine TAB* 0.1 MG PO SCH ×2 (08:39→21:01)
--- NOTE | 2017-12-11 10:31 | PN ---
Progress Note - Progress Note Date of Service: 12/11/17 SOAP: Subjective: CC: peritonitis HPI: 42 year old woman with hx gastric bypass, admitted with internal hernia which was repaired, back to OR for jejunal leak. Up walking around, minmial abd pain, no fever, chills or rash. Objective: Vital Signs Temp 36.7 C 12/11/17 07:14 Pulse 98 12/11/17 07:14 Resp 16 12/11/17 10:26 BP 101/50 12/11/17 07:14 Pulse Ox 99 12/11/17 10:26 Intake & Output 12/10/17 12/11/17 12/11/17 18:59 06:59 18:59 Intake Total 435 2516 320 Output Total 681 1070 400 Balance -246 1446 -80 Weight 149 lb 14.4 oz Intake: IV Fluids 1119 NS (0.9%) 1119 IVPB 315 ABX - FLAGYL 315 TPN/PPN 1037 Oral 120 360 320 Output: G Tube 6 70 Urine 500 1000 400 [place] 175 Gen:awake, no distress HEENT:PERRL, MMM Heart:RRR no murmur Lungs:CTA BL Abd:+BS NTND soft; stapled incision intact no erythema Skin: no rash Assessment: 1. peritonitis s/p laparotomy ; E.coli/ESBL. Anne Marie in culture is not a pathogen 2. TPN 3. asymptomatic bacteruria 5. anaphylaxis with pcn, cephalosporin; tolerates meropenem Plan: 1. continue meropenem day 5/7 as long as continuing to improve.
[2017-12-11] MEDS: TPN* 24 HR with Dextrose 50% Water* 500 ML, Amino Acid Infusion 10%* 850 ML, Sterile Wa... CENTR SCH ×12 (16:57)
--- NOTE | 2017-12-11 17:56 | PN ---
Subjective Date of Service: 12/11/17 Interval History: PEG tube hooked back to drainage 2/2 discomfort yesterday. Still on TPN and CORPORATE RECYCLING MANAGER. No BMs, minimal flatus, some belching. Eating small amounts. Family History: Unchanged from Admission Social History: Unchanged from Admission Past Medical History: Unchanged from Admission Objective Active Medications: Amphetamine/Dextroamphetamine (Adderall Tab*) 10 mg PO 0900,1600 [facility] Last Admin: 12/11/17 16:54 Dose: 10 mg Aripiprazole (Abilify Tab*) 2 mg PO DAILY [facility] Last Admin: 12/11/17 08:38 Dose: 2 mg Buspirone HCl (Buspar Tab*) 10 mg PO TID PRN PRN Reason: ANXIETY Last Admin: 12/10/17 06:21 Dose: 10 mg Clonidine HCl (Catapres Tab*) 0.1 mg PO BID [facility] Last Admin: 12/11/17 08:39 Dose: 0.1 mg Dextrose (D50w Syringe 50 Ml*) 12.5 gm IV PUSH .FOR FS < 60 - SS PRN PRN Reason: FS < 60 Heparin Sodium (Porcine) (Heparin Flush Picc/Ml/Cvc(*)) 0 ml FLUSH 0600,1800 [facility] PRN Reason: Protocol Last Admin: 12/11/17 17:01 Dose: Not Given Heparin Sodium (Porcine) (Heparin Vial(*)) 5,000 units SUBCUT Q8HR [facility] Last Admin: 12/11/17 13:18 Dose: 5,000 units Hydromorphone HCl (Dilaudid Senior Sharepoint Developer*) 20 mg in 20 mls @ 0 mls/hr CORPORATE RECYCLING MANAGER .change Q24H [facility]; Per Protocol PRN Reason: Protocol Last Admin: 12/11/17 00:12 Dose: 20 mls/hr Sodium Chloride (Ns 0.9% 1000 Ml*) 1,000 mls @ 30 mls/hr IV .KVO [facility] PRN Reason: KVO Meropenem (Merrem 1 Gm Premix(*)) 1 gm in 50 mls @ 100 mls/hr IV Q8H [facility] Last Admin: 12/11/17 13:18 Dose: 100 mls/hr Dextrose 500 ml/ Amino Acids 850 ml/ Sterile Water 150 ml/Fat Emulsion Intravenous 250 ml/ Sodium Chloride 100 meq/Potassium Chloride 50 meq/Potassium Phosphate 15 mmole/Calcium Gluconate 15 meq/Magnesium Sulfate 10 meq/ Multivitamins 10 ml/ Trace Metals 1 ml/ Nutrition ( Parenteral) 1,850.721 mls @ 77.113 mls/hr CENTR 1700 [facility] Last Admin: 12/11/17 16:57 Dose: 77.113 mls/hr Ferric Sodium Gluconate Complex 125 mg/ Sodium Chloride 110 mls @ 110 mls/hr IVPB ONCE ONE Stop: 12/12/17 10:59 Insulin Human Lispro (Humalog*) 0 units SUBCUT Q6HR [facility] PRN Reason: Protocol Last Admin: 12/11/17 17:48 Dose: Not Given Lamotrigine (Lamictal Tab(*)) 150 mg PO BID [facility] Last Admin: 12/11/17 08:39 Dose: 150 mg Lorazepam (Ativan Inj*) 0.5 mg IV BEDTIME PRN PRN Reason: SLEEP Last Admin: 12/08/17 22:36 Dose: 0.5 mg Pantoprazole Sodium (Protonix Iv*) 40 mg IV Q24H [facility] Last Admin: 12/11/17 02:02 Dose: 40 mg Prochlorperazine Edisylate (Compazine Inj*) 10 mg IV Q6H PRN PRN Reason: NAUSEA/VOMITING Last Admin: 12/09/17 18:38 Dose: 10 mg Quetiapine Fumarate (Seroquel Tab*) 150 mg PO BEDTIME [facility] Last Admin: 12/10/17 21:18 Dose: 150 mg Vital Signs - 8 hr 12/11/17 12/11/17 12/11/17 10:26 12:01 12:35 Temperature 98.2 F Pulse Rate 97 Respiratory 16 16 16 Rate Blood Pressure 108/54 (mmHg) O2 Sat by Pulse 99 100 97 Oximetry 12/11/17 12/11/17 12/11/17 14:26 15:29 17:01 Temperature 98.6 F Pulse Rate 102 Respiratory 16 16 16 Rate Blood Pressure 113/59 (mmHg) O2 Sat by Pulse 97 100 100 Oximetry Oxygen Devices in Use Now: None Appearance: NAD, sitting in chair. Ears/Nose/Mouth/Throat: NL Teeth, Lips, Gums, Mucous Membranes Moist Neck: NL Appearance and Movements; NL JVP Respiratory: - - reduced at bilateral bases. Cardiovascular: NL Sounds; No Murmurs; No JVD, RRR Abdominal: - - midline incision w/ overlying bandange. PEG LUQ. not tender to palpation. soft. Extremities: - - nonpitting edema Skin: No Rash or Ulcers, No Nodules or Sclerosis Neurological: Alert and Oriented x 3, NL Sensation, NL Muscle Strength and Tone Nutrition: Taking PO's, TPN Result Diagrams: 12/10/17 06:33 12/10/17 06:33 Additional Lab and Data: Laboratory Results - last 24 hr 12/08/17 12/10/17 12/11/17 08:30 17:37 00:19 Hem Pathologist Commnt POC Glucose (mg/dL) 111 H 148 H 12/11/17 06:01 Hem Pathologist Commnt POC Glucose (mg/dL) 144 H Microbiology and Other Data: Microbiology 12/05/17 21:57 Blood Venous Aerobic Blood Culture - Final No Growth Day 5 12/05/17 21:57 Blood Venous Anaerobic Blood Culture - Final No Growth Day 5 12/05/17 21:42 Blood Venous Aerobic Blood Culture - Final No Growth Day 5 12/05/17 21:42 Blood Venous Anaerobic Blood Culture - Final No Growth Day 5 12/05/17 23:43 Peritoneal Fluid Gram Stain - Final 12/05/17 23:43 Peritoneal Fluid Body Fluid Culture - Final Esbl Escherichia Coli Anne Marie Albicans Lactobacillus Species 12/06/17 02:40 Nasal Nasal Screen MRSA (PCR)([facility]) - Final Mrsa Negative 18 23:53 Urine Urine Culture - Final Esbl Escherichia Coli Normal [facility] Assess/Plan/Problems-Billing Assessment: 42yo female PMH gastric bypass, kidney stones, recurrent UTI, ADHD, Bipolar disorder, p/w abdominal pain found to have internal hernia s/p ex lap and is POD #5 after a repeat ex-lap with closure of small jejeunal hole. Septic (resolved) . ESBL Ecoli in urine and peritoneal fluid, now on meropenem day 5/7 and TPN+ regular diet. - Patient Problems (1) Bowel perforation Current Visit: Yes Status: Acute Code(s): K63.1 - PERFORATION OF INTESTINE ( NONTRAUMATIC) SNOMED Code(s): 20699128 Comment: POD#5 exploratory laparotomy, found pinhole perforation in jejunum. Perforation repaired and PEG tube placed for decompression of stomach. Patient now bariatric regular + TPN. planned TFs soon. ESBL Ecoli on Flagyl and now meropenem per sensitivities. Appreciate ID recs. Anne Marie and lactobacillus as well would favor stopping IVF if still on TPN. (2) Sepsis Current Visit: Yes Status: Acute Comment: Resolved. Hypotensive and tachypneic 2/3 sepsis 3 criteria. source ESBL ecoli 2/2 pinpoint bowel perf continue antibiotics as above. (3) Internal hernia Current Visit: Yes Status: Acute Code(s): K45.8 - OTH ABDOMINAL HERNIA WITHOUT OBSTRUCTION OR GANGRENE SNOMED Code(s): 36792754 Comment: s/p ex lap. 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 s/p 1u pRBC on 12/06. Hgb improved 8.9 (12/08). On IV iron as per heme/onc recs. Iron 17, Iron Sat 3%. Ferritin <10. 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 Started on TPA and IV iron. (9) Kidney stone on left side Current Visit: Yes Status: Acute Code(s): N20.0 - CALCULUS OF KIDNEY SNOMED Code(s): 76775073 Comment: not seen on most recent imaging. Previously seen by urology in [place] with no intervention suggested. Patient has a family history of kidney stones. Recommend outpatient workup. Status and Disposition: surgery inpatient, medicine consulting. Attending: Kuldip Guevara
[2017-12-11] MEDS: PROCHLORPERAZINE INJ 5 MG/ML 2 ML VIAL IV PRN (18:30)
[2017-12-11] MEDS: QUEtiapine TAB* 100 MG PO SCH (21:02)
[2017-12-12] MEDS: NS 0.9% 1000 ML* 1,000 ML IV SCH ×2 (01:32→22:31)
[2017-12-12] MEDS: Pantoprazole IV* 40 MG IV SCH (02:02)
[2017-12-12] MEDS: Meropenem 1 GM PREMIX(*) 1 GM/50 ML BAG IV SCH ×3 (04:57→20:39)
[2017-12-12 05:01] LABS: ABS Basophils 0.1 10^3/ul (0-0.2); ABS Eosinophils 0.3 10^3/ul (0-0.6); ABS Lymphocytes 1.9 10^3/ul (1.0-4.8); ABS Monocytes 1.4 10^3/ul (0-0.8); ABS Neutrophils 12.9 10^3/ul (1.5-7.7); ABS Nucleated RBC 0 10^3/ul; Eosinophil % 1.6 % (0-6); Hematocrit 23 % (35-47); Hemoglobin 7.5 g/dl (12.0-16.0); Lymphocyte % 11.2 % (25-47); Mean Corpuscular HGB Conc 32 g/dl (31-36); Mean Corpuscular Hemoglobin 24 pg (27-31); Mean Corpuscular Volume 74 fL (80-97); Mean Platelet Volume 7 um3 (7.4-10.4); Nucleated Red Blood Cells % 0; Platelet Count 469 10^3/ul (150-450); Red Blood Count 3.15 10^6/ul (4.0-5.4); Red Cell Distribution Width 18 % (10.5-15); White Blood Count 16.5 10^3/ul (3.5-10.8)
[2017-12-12] MEDS: Heparin VIAL(*) 5000 UNITS/ML VIAL (FIVE THOUSAND) SUBCUT SCH ×3 (05:47→22:21)
[2017-12-12] MEDS: Insulin LISPRO* 1 UNITS UNIT SUBCUT SCH ×2 (05:58→12:53)
[2017-12-12] MEDS: Amphetamine MIXED SALT TAB* 10 MG TAB PO SCH ×2 (08:47→16:13)
[2017-12-12] MEDS: lamoTRIgine TAB(*) 100 MG PO SCH ×2 (08:48→20:38)
[2017-12-12] MEDS: cloNIDine TAB* 0.1 MG PO SCH ×2 (08:48→20:37)
[2017-12-12] MEDS: ARIPiprazole TAB* 2 MG PO SCH (08:48)
[2017-12-12] MEDS ORDERED: Ferric Gluconate IV* 125 MG in NS 0.9% 100 ML* 100 ML IVPB ONE (10:00)
--- NOTE | 2017-12-12 10:45 | PN ---
Progress Note - Progress Note Date of Service: 12/12/17 Note: Late entry. Pt seen on 12/11/17 in am. S: No flatus. Adequate pain control. Regular diet too much; requested full liquids. O: Afeb. VSS u/l=956ry/8h Abd: soft; Gtube intact with bilious o/p. M/L incision no erythema. no new labs A/P:POD#5 s/p exlap for SBO and repair perf/POD#9 s/p repair internal hernia. SBO with perf and peritonitis improving on IV abx. Malnutrition on TPN. Has post op ileus. Change to full liquid diet. Chronic iron deficiency anemia, Post Bariatric surgery -->IV iron. Check am labs.
--- NOTE | 2017-12-12 11:45 | RAD ---
HISTORY: Laparotomy, ileus COMPARISONS: CT dated December 05, 2017 VIEWS: Frontal supine and upright views of the abdomen. FINDINGS: BOWEL: There are multiple air-fluid levels on the upright views within the small bowel. There is gaseous distention of small bowel without dilatation. There is large amount of stool within the colon with gaseous distention of the distal colon. CALCULI: There are no abnormal calculi. BONES AND SOFT TISSUES: There are no osseous abnormalities. OTHER FINDINGS: The lung bases are clear. There is no subphrenic gas. Surgical clips are noted IMPRESSION: NONSPECIFIC BOWEL GAS PATTERN. LARGE AMOUNT OF GAS AND STOOL WITHIN THE COLON.
[2017-12-12] MEDS ORDERED: Bisacodyl SUPP* 10 MG SUPP PR ONE (12:38)
--- NOTE | 2017-12-12 12:41 | PN ---
Progress Note - Progress Note Date of Service: 12/12/17 SOAP: Subjective: She has been using the PULP BEATER regularly. Denies flatus or BM. Voiding large amounts. Objective: Vital Signs Temp 99.3 F 12/12/17 11:48 Pulse 106 12/12/17 11:48 Resp 16 12/12/17 11:48 BP 115/62 12/12/17 11:48 Pulse Ox 92 12/12/17 11:48 Gen: NAD, lying in bed. Abd: incision c/d/i; no erythema; Gtube with scant bilious o/p. Soft and minimally tender. Decr BS. Intake & Output 12/11/17 12/12/17 12/12/17 18:59 06:59 18:59 Intake Total 1308 1907 175 Output Total 1440 2825 1500 Balance -132 -918 -1325 Weight 140 lb 12.8 oz Intake: IV Fluids 115 Ferrous Gluconate 115 TPN/PPN 763 987 Oral 545 920 30 Tube Feeding Flush Amount 30 Output: G Tube 40 25 Urine 1400 2800 1500 Other: # Bowel Movements 0 Laboratory Results - last 24 hr 12/11/17 12/11/17 12/11/17 00:19 06:01 11:50 WBC RBC Hgb Hct MCV MCH MCHC RDW Plt Count MPV Neut % (Auto) Lymph % (Auto) [place] % (Auto) Eos % (Auto) Baso % (Auto) Absolute Neuts (auto) Absolute Lymphs (auto) Absolute Monos (auto) Absolute Eos (auto) Absolute Basos (auto) Absolute Nucleated RBC Nucleated RBC % Sodium Potassium Chloride Carbon Dioxide Anion Gap BUN Creatinine Est GFR ( Amer) Est GFR (Non-Af Amer) BUN/Creatinine Ratio Glucose POC Glucose (mg/dL) 148 H 144 H 115 H Calcium Phosphorus Magnesium Total Bilirubin AST ALT Alkaline Phosphatase Total Protein Albumin Globulin Albumin/Globulin Ratio Prealbumin Triglycerides Cholesterol Blood Type Antibody Screen Crossmatch 12/11/17 12/11/17 12/12/17 17:46 23:34 04:36 WBC RBC Hgb Hct MCV MCH MCHC RDW Plt Count MPV Neut % (Auto) Lymph % (Auto) [place] % (Auto) Eos % (Auto) Baso % (Auto) Absolute Neuts (auto) Absolute Lymphs (auto) Absolute Monos (auto) Absolute Eos (auto) Absolute Basos (auto) Absolute Nucleated RBC Nucleated RBC % Sodium 132 L Potassium 4.2 Chloride 103 Carbon Dioxide 25 Anion Gap 4 BUN 11 Creatinine 0.39 L Est GFR ( Amer) 234.1 Est GFR (Non-Af Amer) 182.0 BUN/Creatinine Ratio 28.2 H Glucose 122 H POC Glucose (mg/dL) 111 H 141 H Calcium 7.7 L Phosphorus 3.9 Magnesium 2.2 Total Bilirubin 0.20 AST 12 L ALT 10 Alkaline Phosphatase 45 Total Protein 4.7 L Albumin 2.1 L Globulin 2.6 Albumin/Globulin Ratio 0.8 L Prealbumin 10 L Triglycerides 81 Cholesterol 68 Blood Type Antibody Screen Crossmatch 12/12/17 12/12/17 12/12/17 04:37 04:37 05:54 WBC 16.5 H RBC 3.15 L Hgb 7.5 L Hct 23 L MCV 74 L MCH 24 L MCHC 32 RDW 18 H Plt Count 469 H D MPV 7 L Neut % (Auto) 77.8 Lymph % (Auto) 11.2 L [place] % (Auto) 8.6 Eos % (Auto) 1.6 Baso % (Auto) 0.8 Absolute Neuts (auto) 12.9 H Absolute Lymphs (auto) 1.9 Absolute Monos (auto) 1.4 H Absolute Eos (auto) 0.3 Absolute Basos (auto) 0.1 Absolute Nucleated RBC 0 Nucleated RBC % 0 Sodium Potassium Chloride Carbon Dioxide Anion Gap BUN Creatinine Est GFR ( Amer) Est GFR (Non-Af Amer) BUN/Creatinine Ratio Glucose POC Glucose (mg/dL) 137 H Calcium Phosphorus Magnesium Total Bilirubin AST ALT Alkaline Phosphatase Total Protein Albumin Globulin Albumin/Globulin Ratio Prealbumin Triglycerides Cholesterol Blood Type O Positive Antibody Screen Negative Crossmatch See Detail AXR: some A/F levels with dilated colon. Assessment: Slowly improving. POD#6 s/p exlap for SBO and repair perf/POD#10 s/p repair internal hernia. SBO with perf and peritonitis improving on IV abx. Post-op ileus complicated by narcotics. Malnutrition. Chronic iron deficiency anemia, Post Bariatric surgery. Plan: Continue abx per ID. Cont TPN until able to tolerate adequate po. Start tube feeds when able. Cont IV iron. Will add stool softener/Dulcolax suppository.
[2017-12-12] MEDS: Acetaminophen TAB* 325 MG PO PRN (12:45)
[2017-12-12] MEDS: HYDROmorphone INJ* 2 MG/ML CARPUJECT SYRINGE IV SLOW PU PRN (14:15)
[2017-12-12] MEDS: Docusate CAP* 100 MG PO PRN ×2 (16:13→20:37)
[2017-12-12] MEDS: PROCHLORPERAZINE INJ 5 MG/ML 2 ML VIAL IV PRN (16:25)
[2017-12-12] MEDS: TPN* 24 HR with Dextrose 50% Water* 500 ML, Amino Acid Infusion 10%* 850 ML, Sterile Wa... CENTR SCH ×12 (17:53)
--- NOTE | 2017-12-12 17:57 | PN ---
Subjective Date of Service: 12/12/17 Interval History: KUB with stool. had not been passing much flatus. no BM. belching. Hgb to 7.5 and was ordered 1u prbc. Winded with walking. Pain in left flank to lower back and abd. still on dish washer. some liquid po intake. wbc down to 16.5 Afebrile. tachy 100s intermittently. Family History: Unchanged from Admission Social History: Unchanged from Admission Past Medical History: Unchanged from Admission Objective Active Medications: Acetaminophen (Tylenol Tab*) 650 mg PO Q6H PRN PRN Reason: HEADACHE Last Admin: 12/12/17 12:45 Dose: 650 mg Amphetamine/Dextroamphetamine (Adderall Tab*) 10 mg PO 0900,1600 PENDING SALE TO [facility] Last Admin: 12/12/17 16:13 Dose: 10 mg Aripiprazole (Abilify Tab*) 2 mg PO DAILY PENDING SALE TO [facility] Last Admin: 12/12/17 08:48 Dose: 2 mg Buspirone HCl (Buspar Tab*) 10 mg PO TID PRN PRN Reason: ANXIETY Last Admin: 12/10/17 06:21 Dose: 10 mg Clonidine HCl (Catapres Tab*) 0.1 mg PO BID PENDING SALE TO [facility] Last Admin: 12/12/17 08:48 Dose: 0.1 mg Dextrose (D50w Syringe 50 Ml*) 12.5 gm IV PUSH .FOR FS < 60 - SS PRN PRN Reason: FS < 60 Docusate Sodium (Colace Cap*) 100 mg PO BID PRN PRN Reason: CONSTIPATION Last Admin: 12/12/17 16:13 Dose: 100 mg Heparin Sodium (Porcine) (Heparin Flush Picc/Ml/Cvc(*)) 0 ml FLUSH 0600,1800 PENDING SALE TO [facility] PRN Reason: Protocol Last Admin: 12/12/17 17:36 Dose: Not Given Heparin Sodium (Porcine) (Heparin Vial(*)) 5,000 units SUBCUT Q8HR PENDING SALE TO [facility] Last Admin: 12/12/17 14:20 Dose: 5,000 units Hydromorphone HCl (Dilaudid Inj*) 1 mg IV SLOW PU Q4H PRN PRN Reason: PAIN - MODERATE TO SEVERE Last Admin: 12/12/17 14:15 Dose: 1 mg Hydromorphone HCl (Dilaudid Email Engineer*) 20 mg in 20 mls @ 0 mls/hr ACCOUNTING PRACTICE MANAGER .change Q24H PENDING SALE TO [facility]; Per Protocol PRN Reason: Protocol Last Admin: 12/11/17 00:12 Dose: 20 mls/hr Sodium Chloride (Ns 0.9% 1000 Ml*) 1,000 mls @ 30 mls/hr IV .KVO PENDING SALE TO [facility] PRN Reason: KVO Last Admin: 12/12/17 01:32 Dose: 30 mls/hr Meropenem (Merrem 1 Gm Premix(*)) 1 gm in 50 mls @ 100 mls/hr IV Q8H PENDING SALE TO [facility] Last Admin: 12/12/17 12:46 Dose: 100 mls/hr Dextrose 500 ml/ Amino Acids 850 ml/ Sterile Water 150 ml/Fat Emulsion Intravenous 250 ml/ Sodium Chloride 100 meq/Potassium Chloride 50 meq/Potassium Phosphate 15 mmole/Calcium Gluconate 15 meq/Magnesium Sulfate 10 meq/ Multivitamins 10 ml/ Trace Metals 1 ml/ Nutrition ( Parenteral) 1,850.721 mls @ 77.113 mls/hr CENTR 1700 PENDING SALE TO [facility] Last Admin: 12/11/17 16:57 Dose: 77.113 mls/hr Lamotrigine (Lamictal Tab(*)) 150 mg PO BID PENDING SALE TO [facility] Last Admin: 12/12/17 08:48 Dose: 150 mg Lorazepam (Ativan Inj*) 0.5 mg IV BEDTIME PRN PRN Reason: SLEEP Last Admin: 12/08/17 22:36 Dose: 0.5 mg Pantoprazole Sodium (Protonix Iv*) 40 mg IV Q24H PENDING SALE TO [facility] Last Admin: 12/12/17 02:02 Dose: 40 mg Prochlorperazine Edisylate (Compazine Inj*) 10 mg IV Q6H PRN PRN Reason: NAUSEA/VOMITING Last Admin: 12/12/17 16:25 Dose: 10 mg Quetiapine Fumarate (Seroquel Tab*) 150 mg PO BEDTIME PENDING SALE TO [facility] Last Admin: 12/11/17 21:02 Dose: 150 mg Vital Signs - 8 hr 12/12/17 12/12/17 12/12/17 11:48 13:00 14:15 Temperature 99.3 F Pulse Rate 106 Respiratory 16 20 20 Rate Blood Pressure 115/62 (mmHg) O2 Sat by Pulse 92 97 Oximetry 12/12/17 12/12/17 12/12/17 15:37 15:50 17:00 Temperature 98.8 F Pulse Rate 102 Respiratory 20 20 20 Rate Blood Pressure 119/65 (mmHg) O2 Sat by Pulse 100 98 Oximetry Oxygen Devices in Use Now: None Appearance: NAD Eyes: No Scleral Icterus, PERRLA Neck: NL Appearance and Movements; NL JVP Respiratory: Symmetrical Chest Expansion and Respiratory Effort, - - decreased at b/l bases, no wheezing, rales or rhonchi. Cardiovascular: NL Sounds; No Murmurs; No JVD, RRR Abdominal: - - midline incision no strikethru. minimally tender to palpation but on frequent ACCOUNTING PRACTICE MANAGER. nondistended. pale yellow fluid in PEG. Extremities: - - puffy, nonpitting Skin: No Rash or Ulcers, No Nodules or Sclerosis Neurological: Alert and Oriented x 3, NL Sensation, NL Muscle Strength and Tone Nutrition: Taking PO's, TPN Result Diagrams: 12/12/17 04:37 12/12/17 04:36 Additional Lab and Data: Laboratory Results - last 24 hr 12/11/17 12/11/17 12/11/17 11:50 17:46 23:34 WBC RBC Hgb Hct MCV MCH MCHC RDW Plt Count MPV Neut % (Auto) Lymph % (Auto) [place] % (Auto) Eos % (Auto) Baso % (Auto) Absolute Neuts (auto) Absolute Lymphs (auto) Absolute Monos (auto) Absolute Eos (auto) Absolute Basos (auto) Absolute Nucleated RBC Nucleated RBC % Sodium Potassium Chloride Carbon Dioxide Anion Gap BUN Creatinine Est GFR ( Amer) Est GFR (Non-Af Amer) BUN/Creatinine Ratio Glucose POC Glucose (mg/dL) 115 H 111 H 141 H Calcium Phosphorus Magnesium Total Bilirubin AST ALT Alkaline Phosphatase Total Protein Albumin Globulin Albumin/Globulin Ratio Prealbumin Triglycerides Cholesterol Blood Type Antibody Screen Crossmatch 12/12/17 12/12/17 12/12/17 04:36 04:37 04:37 WBC 16.5 H RBC 3.15 L Hgb 7.5 L Hct 23 L MCV 74 L MCH 24 L MCHC 32 RDW 18 H Plt Count 469 H D MPV 7 L Neut % (Auto) 77.8 Lymph % (Auto) 11.2 L [place] % (Auto) 8.6 Eos % (Auto) 1.6 Baso % (Auto) 0.8 Absolute Neuts (auto) 12.9 H Absolute Lymphs (auto) 1.9 Absolute Monos (auto) 1.4 H Absolute Eos (auto) 0.3 Absolute Basos (auto) 0.1 Absolute Nucleated RBC 0 Nucleated RBC % 0 Sodium 132 L Potassium 4.2 Chloride 103 Carbon Dioxide 25 Anion Gap 4 BUN 11 Creatinine 0.39 L Est GFR ( Amer) 234.1 Est GFR (Non-Af Amer) 182.0 BUN/Creatinine Ratio 28.2 H Glucose 122 H POC Glucose (mg/dL) Calcium 7.7 L Phosphorus 3.9 Magnesium 2.2 Total Bilirubin 0.20 AST 12 L ALT 10 Alkaline Phosphatase 45 Total Protein 4.7 L Albumin 2.1 L Globulin 2.6 Albumin/Globulin Ratio 0.8 L Prealbumin 10 L Triglycerides 81 Cholesterol 68 Blood Type O Positive Antibody Screen Negative Crossmatch See Detail 12/12/17 12/12/17 05:54 12:50 WBC RBC Hgb Hct MCV MCH MCHC RDW Plt Count MPV Neut % (Auto) Lymph % (Auto) [place] % (Auto) Eos % (Auto) Baso % (Auto) Absolute Neuts (auto) Absolute Lymphs (auto) Absolute Monos (auto) Absolute Eos (auto) Absolute Basos (auto) Absolute Nucleated RBC Nucleated RBC % Sodium Potassium Chloride Carbon Dioxide Anion Gap BUN Creatinine Est GFR ( Amer) Est GFR (Non-Af Amer) BUN/Creatinine Ratio Glucose POC Glucose (mg/dL) 137 H 107 H Calcium Phosphorus Magnesium Total Bilirubin AST ALT Alkaline Phosphatase Total Protein Albumin Globulin Albumin/Globulin Ratio Prealbumin Triglycerides Cholesterol Blood Type Antibody Screen Crossmatch Microbiology and Other Data: Microbiology 12/05/17 21:57 Blood Venous Aerobic Blood Culture - Final No Growth Day 5 12/05/17 21:57 Blood Venous Anaerobic Blood Culture - Final No Growth Day 5 12/05/17 21:42 Blood Venous Aerobic Blood Culture - Final No Growth Day 5 12/05/17 21:42 Blood Venous Anaerobic Blood Culture - Final No Growth Day 5 12/05/17 23:43 Peritoneal Fluid Gram Stain - Final 12/05/17 23:43 Peritoneal Fluid Body Fluid Culture - Final Esbl Escherichia Coli Anne Marie Albicans Lactobacillus Species 12/06/17 02:40 Nasal Nasal Screen MRSA (PCR)(ELROY) - Final Mrsa Negative 12/01/17 23:53 Urine Urine Culture - Final Esbl Escherichia Coli Normal Charisma Assess/Plan/Problems-Billing Assessment: 42yo female PMH gastric bypass, kidney stones, recurrent UTI, ADHD, Bipolar disorder, p/w abdominal pain found to have internal hernia s/p ex lap and is POD #6 after a repeat ex-lap with closure of small jejeunal hole. Septic (resolved) . ESBL Ecoli in urine and peritoneal fluid, now on meropenem day 6/7 and TPN+ regular diet and now starting TFs. No BMs or flatus. - Patient Problems (1) Bowel perforation Current Visit: Yes Status: Acute Code(s): K63.1 - PERFORATION OF INTESTINE ( NONTRAUMATIC) SNOMED Code(s): 28979753 Comment: POD#6 exploratory laparotomy, found pinhole perforation in jejunum. Perforation repaired and PEG tube placed for decompression of stomach. Patient now bariatric regular + TPN and transitioning to TFs today ESBL Ecoli on Flagyl and now meropenem per sensitivities. Appreciate ID recs. Anne Marie and lactobacillus as well (2) Constipation Current Visit: Yes Status: Acute Code(s): K59.00 - CONSTIPATION, UNSPECIFIED SNOMED Code(s): 45273371 Comment: bowel regimen added 12/12. on ACCOUNTING PRACTICE MANAGER per primary. consider promotility agent, senna. (3) Sepsis Current Visit: Yes Status: Acute Comment: Resolved. Hypotensive and tachypneic 2/3 sepsis 3 criteria. source ESBL ecoli 2/2 pinpoint bowel perf continue antibiotics as above. (4) Abdominal pain Current Visit: Yes Status: Acute Code(s): R10.9 - UNSPECIFIED ABDOMINAL PAIN SNOMED Code(s): 69711271 Comment: post surgical but monitoring for recurrent sbo vs other complication. on ACCOUNTING PRACTICE MANAGER still. Constipated, bowel regimen added. (5) Internal hernia Current Visit: Yes Status: Acute Code(s): K45.8 - OTH ABDOMINAL HERNIA WITHOUT OBSTRUCTION OR GANGRENE SNOMED Code(s): 38971349 Comment: s/p ex lap. 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 s/p 1u pRBC on 12/06. Hgb down to 7.5 (12/12), getting 1 more pRBC. On IV iron as per heme/onc recs. Iron 17, Iron Sat 3%. Ferritin <10. 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 TPA -> TF IV iron. (11) Kidney stone on left side Current Visit: Yes Status: Acute Code(s): N20.0 - CALCULUS OF KIDNEY SNOMED Code(s): 33292372 Comment: not seen on most recent imaging. Previously seen by urology in [place] with no intervention suggested. Patient has a family history of kidney stones. Recommend outpatient workup. Status and Disposition: surgery inpatient, medicine consulting. Attending: Kuldip Guevara
[2017-12-12] MEDS: HYDROmorphone PCA* 20 MG/20 ML PCA.SYRING PCA SCH (20:22)
[2017-12-12] MEDS: QUEtiapine TAB* 100 MG PO SCH (22:21)
[2017-12-13] MEDS: Pantoprazole IV* 40 MG IV SCH (01:28)
[2017-12-13] MEDS: Meropenem 1 GM PREMIX(*) 1 GM/50 ML BAG IV SCH ×3 (04:39→20:52)
[2017-12-13] MEDS: Heparin VIAL(*) 5000 UNITS/ML VIAL (FIVE THOUSAND) SUBCUT SCH ×3 (05:55→21:00)
[2017-12-13] MEDS: lamoTRIgine TAB(*) 100 MG PO SCH ×2 (07:59→20:52)
[2017-12-13] MEDS: ARIPiprazole TAB* 2 MG PO SCH (08:00)
[2017-12-13] MEDS: Amphetamine MIXED SALT TAB* 10 MG TAB PO SCH ×2 (08:00→16:35)
[2017-12-13] MEDS: cloNIDine TAB* 0.1 MG PO SCH ×2 (08:00→20:52)
--- NOTE | 2017-12-13 08:38 | PN ---
Progress Note - Progress Note Date of Service: 12/13/17 SOAP: Subjective: She is more SOB today. Non-prod cough. Feels weak. No flatus but small BM after suppository yesterday. TF halted yesterday due to N and pain but she wants to try again today. Objective: Vital Signs Temp 99.2 F 12/13/17 04:15 Pulse 103 12/13/17 04:15 Resp 16 12/13/17 07:01 BP 103/51 12/13/17 04:15 Pulse Ox 98 12/13/17 07:01 Gen: appears SOB Lungs: CTA B heart: reg, tachy abd: incis clean and no erythema; scant serous d/c; tender in RLQ. Intake & Output 12/12/17 12/13/17 12/13/17 18:59 06:59 18:59 Intake Total 2521 1627 Output Total 4200 3000 300 Balance -1679 -1373 -300 Weight 140 lb 12.8 oz 132 lb 12.8 oz Intake: IV Fluids 115 987 Ferrous Gluconate 115 NS (0.9%) 987 IVPB 110 Meropenem 110 TPN/PPN 934 Oral 1060 530 Tube Feeding 42 Tube Feeding Flush Amount 90 Packed Cells 280 Output: G Tube 200 150 Urine 4000 2850 300 Tube Feeding Residual 0 Amount Wasted Other: # Bowel Movements 1 Estimated Stool Amount Small Laboratory Results - last 24 hr 12/12/17 12/12/17 04:37 12:50 POC Glucose (mg/dL) 107 H Blood Type O Positive Antibody Screen Negative Crossmatch See Detail Assessment: POD#7 s/p exlap for SBO and repair perf/POD#11 s/p repair internal hernia. SBO with perf and peritonitis on IV abx. Post-op ileus complicated by narcotics. RLQ tenderness is new but may be due to ileus. Malnutrition. Chronic iron deficiency anemia, Post Bariatric surgery. Plan: Abx per ID. Check CBCD today. Check CXR. Will consider CT abd/pelvis pending WBC. Hold on TF until above. Cont TPN.
[2017-12-13 08:45] LABS: Hematocrit 26 % (35-47); Hemoglobin 8.2 g/dl (12.0-16.0); Mean Corpuscular HGB Conc 32 g/dl (31-36); Mean Corpuscular Hemoglobin 24 pg (27-31); Mean Corpuscular Volume 75 fL (80-97); Mean Platelet Volume 7 um3 (7.4-10.4); Platelet Count 602 10^3/ul (150-450); Red Cell Distribution Width 18 % (10.5-15); White Blood Count 22.2 10^3/ul (3.5-10.8)
[2017-12-13] MEDS: HYDROmorphone INJ* 2 MG/ML CARPUJECT SYRINGE IV SLOW PU PRN ×2 (09:15→18:34)
[2017-12-13] MEDS ORDERED: Iohexol 300* (CONTRAST) 10 ML SDV IV ONE (10:01)
--- NOTE | 2017-12-13 10:25 | RAD ---
HISTORY: Shortness of breath COMPARISONS: December 05, 2017 VIEWS: 4: Frontal dual-energy and lateral views of the chest. FINDINGS: CARDIOMEDIASTINAL SILHOUETTE: The cardiomediastinal silhouette is normal. ANALISA: The analisa are normal. PLEURA: The costophrenic angles are sharp. No pleural abnormalities are noted. LUNG PARENCHYMA: The lungs are clear. ABDOMEN: The upper abdomen is clear. There is no subphrenic gas. BONES AND SOFT TISSUES: No bone or soft tissue abnormalities are noted. OTHER: A right-sided PICC line is noted with the tip overlying the cavoatrial junction. IMPRESSION: NO ACTIVE CARDIOPULMONARY DISEASE.
[2017-12-13 10:33] LABS: ABS Basophils 0.1 10^3/ul (0-0.2); ABS Eosinophils 0.3 10^3/ul (0-0.6); ABS Lymphocytes 2.3 10^3/ul (1.0-4.8); ABS Monocytes 1.6 10^3/ul (0-0.8); ABS Neutrophils 17.9 10^3/ul (1.5-7.7); ABS Nucleated RBC 0 10^3/ul; Eosinophil % 1.4 % (0-6); Lymphocyte % 10.5 % (25-47); Nucleated Red Blood Cells % 0
--- NOTE | 2017-12-13 12:34 | RAD ---
INDICATION: Right lower quadrant pain. Recent repair of internal hernia. Remote history of gastric bypass surgery and cholecystectomy. COMPARISON: CT abdomen pelvis December 05, 2017 TECHNIQUE: Axial source images were obtained from the hemidiaphragms to the symphysis pubis following administration of oral and intravenous contrast. 80 mL Omnipaque 300 was utilized. Coronal and sagittal reconstructed images were acquired. Lung bases: There is consolidative change in the medial right lung base likely reflecting atelectasis. There is a small left-sided pleural effusion with minor left basilar atelectasis. Liver: The liver is enlarged with findings of mild hepatic steatosis. There are no masses. There is no ductal dilatation. Gallbladder: Cholecystectomy. Spleen: The spleen is normal in size. There are no masses. Pancreas: There is no focal pancreatic mass or ductal dilatation. Adrenal glands: There is no evidence of adrenal mass. Kidneys: The kidneys are normal in size and position. There are prompt nephrograms and there is prompt excretion bilaterally. There are no renal parenchymal masses. There is no evidence of nephrolithiasis. Adenopathy: There is no evidence of adenopathy by size criteria. Fluid collections: There is significant free fluid which has increased. Vessels:There are no significant atherosclerotic changes involving the aorta. There is no focal aneurysm. The iliac vessels are normal in caliber. The IVC appears normal. GI tract: There is gastric bypass surgery. There is a G-tube perhaps in a limb from the gastric bypass procedure.. Dilated small bowel loops have resolved. There is no current obstruction. There is air within the decompressed colon. There is moderate stool within the colon. Pelvic organs: The uterus and adnexa appear normal Bladder: There are no bladder masses. Abdominal and pelvic soft tissues: There is a small ventral hernia containing ascitic fluid. The neck of the defect measures 1.4 cm. There is evidence of recent midline ventral laparotomy with subcutaneous edema. Osseous structures: There are no acute osseous findings. Other: None IMPRESSION: 1. Mild bibasilar consolidative changes with small left-sided effusion. 2. Mild hepatomegaly with hepatic steatosis. 3. Remote postoperative changes to include cholecystectomy and gastric bypass surgery. 4. Interval placement of a percutaneous tube in the left upper quadrant as described. 5. Increased ascites fluid. 6. Interval midline laparotomy. 7. Small ventral hernia containing ascites fluid 8. Resolution of obstructive findings.
--- NOTE | 2017-12-13 15:30 | PN ---
Subjective Date of Service: 12/13/17 Interval History: Ms. Sharma had a small bowel movement last night but still complains of bilateral lower quadrant pain. The pain is described as dull achy pain. while it has been present for a "long time," it is bothersome. She also notes shortness of breath when she walks the hallways that has gotten worse in the past three days. She has been using an incentive spirometer. Prior to a few days ago, she was walking two laps, but yesterday she was only able to walk one lap and felt more short of breath than usual. No fevers, no chest pain, but she does have orthopnea and is sleeping on about 4 pillows. She is unsure how new this is, as she sleeps on a recliner at home because she stays up late doing work every night. Family History: Unchanged from Admission Social History: Unchanged from Admission Past Medical History: Unchanged from Admission Objective Active Medications: Acetaminophen (Tylenol Tab*) 650 mg PO Q6H PRN PRN Reason: HEADACHE Last Admin: 12/12/17 12:45 Dose: 650 mg Amphetamine/Dextroamphetamine (Adderall Tab*) 10 mg PO 0900,1600 [facility] Last Admin: 12/13/17 08:00 Dose: 10 mg Aripiprazole (Abilify Tab*) 2 mg PO DAILY [facility] Last Admin: 12/13/17 08:00 Dose: 2 mg Buspirone HCl (Buspar Tab*) 10 mg PO TID PRN PRN Reason: ANXIETY Last Admin: 12/10/17 06:21 Dose: 10 mg Clonidine HCl (Catapres Tab*) 0.1 mg PO BID [facility] Last Admin: 12/13/17 08:00 Dose: 0.1 mg Docusate Sodium (Colace Cap*) 100 mg PO BID PRN PRN Reason: CONSTIPATION Last Admin: 12/12/17 20:37 Dose: 100 mg Heparin Sodium (Porcine) (Heparin Flush Picc/Ml/Cvc(*)) 0 ml FLUSH 0600,1800 [facility] PRN Reason: Protocol Last Admin: 12/13/17 06:01 Dose: Not Given Heparin Sodium (Porcine) (Heparin Vial(*)) 5,000 units SUBCUT Q8HR [facility] Last Admin: 12/13/17 12:56 Dose: 5,000 units Hydromorphone HCl (Dilaudid Inj*) 1 mg IV SLOW PU Q4H PRN PRN Reason: PAIN - MODERATE TO SEVERE Last Admin: 12/13/17 09:15 Dose: 1 mg Hydromorphone HCl (Dilaudid Psychological Assistant*) 20 mg in 20 mls @ 0 mls/hr [employer] .change Q24H TEE; Per Protocol PRN Reason: Protocol Last Admin: 12/12/17 20:22 Dose: 0.2 mls/hr Sodium Chloride (Ns 0.9% 1000 Ml*) 1,000 mls @ 30 mls/hr IV .KVO [facility] PRN Reason: KVO Last Admin: 12/12/17 22:31 Dose: 30 mls/hr Meropenem (Merrem 1 Gm Premix(*)) 1 gm in 50 mls @ 100 mls/hr IV Q8H [facility] Stop: 12/13/17 23:59 Last Admin: 12/13/17 12:56 Dose: 100 mls/hr Dextrose 500 ml/ Amino Acids 850 ml/ Sterile Water 150 ml/Fat Emulsion Intravenous 250 ml/ Sodium Chloride 100 meq/Potassium Chloride 50 meq/Potassium Phosphate 15 mmole/Calcium Gluconate 15 meq/Magnesium Sulfate 10 meq/ Multivitamins 10 ml/ Trace Metals 1 ml/ Nutrition ( Parenteral) 1,850.721 mls @ 77.113 mls/hr CENTR 1700 [facility] Last Admin: 12/12/17 17:53 Dose: 77.113 mls/hr Lamotrigine (Lamictal Tab(*)) 150 mg PO BID [facility] Last Admin: 12/13/17 07:59 Dose: 150 mg Lorazepam (Ativan Inj*) 0.5 mg IV BEDTIME PRN PRN Reason: SLEEP Last Admin: 12/08/17 22:36 Dose: 0.5 mg Pantoprazole Sodium (Protonix Iv*) 40 mg IV Q24H [facility] Last Admin: 12/13/17 01:28 Dose: 40 mg Prochlorperazine Edisylate (Compazine Inj*) 10 mg IV Q6H PRN PRN Reason: NAUSEA/VOMITING Last Admin: 12/12/17 16:25 Dose: 10 mg Quetiapine Fumarate (Seroquel Tab*) 150 mg PO BEDTIME [facility] Last Admin: 12/12/17 22:21 Dose: 150 mg Vital Signs - 8 hr 12/13/17 12/13/17 12/13/17 07:52 08:00 09:00 Temperature 99.0 F Pulse Rate 94 Respiratory 18 18 18 Rate Blood Pressure 116/60 (mmHg) O2 Sat by Pulse 98 98 Oximetry 12/13/17 12/13/17 12/13/17 09:15 10:14 11:00 Temperature Pulse Rate Respiratory 18 18 18 Rate Blood Pressure (mmHg) O2 Sat by Pulse 99 Oximetry 12/13/17 12/13/17 12:45 13:00 Temperature 98.9 F Pulse Rate 94 Respiratory 18 18 Rate Blood Pressure 118/60 (mmHg) O2 Sat by Pulse 98 98 Oximetry Oxygen Devices in Use Now: None Appearance: sitting up in chair, mildly dyspneic when talking Eyes: No Scleral Icterus Ears/Nose/Mouth/Throat: NL Teeth, Lips, Gums Neck: NL Appearance and Movements; NL JVP Respiratory: Symmetrical Chest Expansion and Respiratory Effort, Clear to Auscultation Cardiovascular: NL Sounds; No Murmurs; No JVD, RRR Abdominal: - - midline incision clean with no drainage, drain in LUQ draining dark yellow fluid. abdomen mildly tender to palpation, no guarding or rebound Lymphatic: No Cervical Adenopathy Extremities: No Edema Skin: No Rash or Ulcers Neurological: Alert and Oriented x 3 Result Diagrams: 12/13/17 08:30 12/13/17 10:40 Additional Lab and Data: Laboratory Results - last 24 hr 12/11/17 12/11/17 12/11/17 11:50 17:46 23:34 WBC RBC Hgb Hct MCV MCH MCHC RDW Plt Count MPV Neut % (Auto) Lymph % (Auto) Hinds % (Auto) Eos % (Auto) Baso % (Auto) Absolute Neuts (auto) Absolute Lymphs (auto) Absolute Monos (auto) Absolute Eos (auto) Absolute Basos (auto) Absolute Nucleated RBC Nucleated RBC % Sodium Potassium Chloride Carbon Dioxide Anion Gap BUN Creatinine Est GFR ( Amer) Est GFR (Non-Af Amer) BUN/Creatinine Ratio Glucose POC Glucose (mg/dL) 115 H 111 H 141 H Calcium Phosphorus Magnesium Total Bilirubin AST ALT Alkaline Phosphatase Total Protein Albumin Globulin Albumin/Globulin Ratio Prealbumin Triglycerides Cholesterol Blood Type Antibody Screen Crossmatch 12/12/17 12/12/17 12/12/17 04:36 04:37 04:37 WBC 16.5 H RBC 3.15 L Hgb 7.5 L Hct 23 L MCV 74 L MCH 24 L MCHC 32 RDW 18 H Plt Count 469 H D MPV 7 L Neut % (Auto) 77.8 Lymph % (Auto) 11.2 L Hinds % (Auto) 8.6 Eos % (Auto) 1.6 Baso % (Auto) 0.8 Absolute Neuts (auto) 12.9 H Absolute Lymphs (auto) 1.9 Absolute Monos (auto) 1.4 H Absolute Eos (auto) 0.3 Absolute Basos (auto) 0.1 Absolute Nucleated RBC 0 Nucleated RBC % 0 Sodium 132 L Potassium 4.2 Chloride 103 Carbon Dioxide 25 Anion Gap 4 BUN 11 Creatinine 0.39 L Est GFR ( Amer) 234.1 Est GFR (Non-Af Amer) 182.0 BUN/Creatinine Ratio 28.2 H Glucose 122 H POC Glucose (mg/dL) Calcium 7.7 L Phosphorus 3.9 Magnesium 2.2 Total Bilirubin 0.20 AST 12 L ALT 10 Alkaline Phosphatase 45 Total Protein 4.7 L Albumin 2.1 L Globulin 2.6 Albumin/Globulin Ratio 0.8 L Prealbumin 10 L Triglycerides 81 Cholesterol 68 Blood Type O Positive Antibody Screen Negative Crossmatch See Detail 12/12/17 12/12/17 05:54 12:50 WBC RBC Hgb Hct MCV MCH MCHC RDW Plt Count MPV Neut % (Auto) Lymph % (Auto) Hinds % (Auto) Eos % (Auto) Baso % (Auto) Absolute Neuts (auto) Absolute Lymphs (auto) Absolute Monos (auto) Absolute Eos (auto) Absolute Basos (auto) Absolute Nucleated RBC Nucleated RBC % Sodium Potassium Chloride Carbon Dioxide Anion Gap BUN Creatinine Est GFR ( Amer) Est GFR (Non-Af Amer) BUN/Creatinine Ratio Glucose POC Glucose (mg/dL) 137 H 107 H Calcium Phosphorus Magnesium Total Bilirubin AST ALT Alkaline Phosphatase Total Protein Albumin Globulin Albumin/Globulin Ratio Prealbumin Triglycerides Cholesterol Blood Type Antibody Screen Crossmatch Microbiology and Other Data: Microbiology 12/05/17 21:57 Blood Venous Aerobic Blood Culture - Final No Growth Day 5 12/05/17 21:57 Blood Venous Anaerobic Blood Culture - Final No Growth Day 5 12/05/17 21:42 Blood Venous Aerobic Blood Culture - Final No Growth Day 5 12/05/17 21:42 Blood Venous Anaerobic Blood Culture - Final No Growth Day 5 12/05/17 23:43 Peritoneal Fluid Gram Stain - Final 12/05/17 23:43 Peritoneal Fluid Body Fluid Culture - Final Esbl Escherichia Coli Anne Marie Albicans Lactobacillus Species 12/06/17 02:40 Nasal Nasal Screen MRSA (PCR)(ELROY) - Final Mrsa Negative 12/01/17 23:53 Urine Urine Culture - Final Esbl Escherichia Coli Normal Charisma Assess/Plan/Problems-Billing Assessment: 42yo female PMH gastric bypass, kidney stones, recurrent UTI, ADHD, Bipolar disorder, p/w abdominal pain found to have internal hernia s/p ex lap and is POD #6 after a repeat ex-lap with closure of small jejeunal hole. Septic (resolved) . ESBL Ecoli in urine and peritoneal fluid, now on meropenem day 6/7 and TPN+ regular diet and now starting TFs. No BMs or flatus. - Patient Problems (1) Dyspnea on exertion Current Visit: Yes Status: Acute Priority: High Code(s): R06.09 - OTHER FORMS OF DYSPNEA SNOMED Code(s): 06448231 Comment: This is relatively new, and is associated with orthopnea. Incidentally, the CT abd/pelvis today showed ascites and a small pleural effusion, which may both be contributing to her dyspnea. I am ordering an echocardiogram to rule out a cardiac etiology of volume overload, though it is possible that she could have volume overload with normal systolic function just from the IVF and TPN she has received. Her LFTs are normal, though this does not necessarily rule out liver disease as the cause of her ascites, but makes it less likely. Certainly PE remains on the differential for her dyspnea given her postoperative state, but at this time, I think volume is more likely the cause of her symptoms, so I'd like to pursue that first. May benefit from gentle diuresis, though I'm hesitant given her recent infection. Will hold off for now, but would be cautious with IVF. (2) Status post exploratory laparotomy Current Visit: Yes Status: Acute Code(s): Z98.890 - OTHER SPECIFIED POSTPROCEDURAL STATES SNOMED Code(s): 054350661 Comment: During an exploratory laparotomy, surgery found a perforation in jejunum. Perforation repaired and PEG tube placed for decompression of stomach. Yesterday she did not tolerate tube feeds, so TPN was continued. Plan to attempt tube feeds again today. (3) Sepsis Current Visit: Yes Status: Acute Comment: thought to be due to ESBL ecoli UTI and bowel perforation, which have both been treated, however she still remains tachycardic, tachypneic, and with leukocytosis. I believe there are alternative explanations to these findings aside from infectious sources, but I would have a low threshold to re-culture her. Today is day 7 of meropenem for ESBL ecoli. 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 s/p 1u pRBC on 12/13. Iron 17, Iron Sat 3%. Ferritin <10. Status and Disposition: surgery inpatient, medicine consulting.
--- NOTE | 2017-12-13 15:58 | PN ---
Progress Note - Progress Note Date of Service: 12/13/17 Note: She had normal CXR. WBCs elevated so CT Abd/Pel done. Ascites noted and ventral hernia. Discussed with patient and recommended paracentesis for diagnostic purposes. She agreed. Procedure: paracentesis (dx) She was positioned supine. She was prepped with Betadine. 2% lidocaine, plain was infiltrated into RLQ and 1 1/2 in. 22ga needle used to aspirate. No fluid returned initially and so procedure repeated medially, directing needle to hernia. Turbid, serosanguinous fluid returned. 10 ml sample sent to lab for GS /C&S. Bandage applied. She tolerated this well without complications.
[2017-12-13] MEDS: TPN* 24 HR with Dextrose 50% Water* 500 ML, Amino Acid Infusion 10%* 850 ML, Sterile Wa... CENTR SCH ×12 (16:35)
--- NOTE | 2017-12-13 16:54 | ECHO ---
Patient: GABE REED [facility] Rec#: [id number] : 1975 Date: 12/13/2017 Age: 42y Height: 152.4 cm / 60.0 in Weight: 60.33 kg / 133.0 lbs Sex: F BSA: 1.57 Admit Date#: 12/02/2017 Type: Inpatient Referring: Janneth Cochran MD Reading: Milagros Newell MD Berry Planter: Della Powers,RDCS,RDMS CC: Bre Boyer, ALEXYS Transthoracic Echocardiogram Indication: Orthopnea, Pleural effusion BP: 118/60 HR: 97 Rhythm: NSR Findings History: Gastric bypass, internal hernia. Technical Comments: The study quality is good. Left Ventricle: The left ventricular chamber size is normal. There is no left ventricular hypertrophy. Global left ventricular wall motion and contractility are within normal limits. The left ventricle appears hyperdynamic. The estimated ejection fraction is greater than 65%. Normal left ventricular diastolic filling is observed. Left Atrium: The left atrial chamber size is normal. Right Ventricle: The right ventricular cavity size is normal. The right ventricular global systolic function is hyperdynamic. Right Atrium: The right atrial cavity size is normal. Aortic Valve: The aortic valve is trileaflet. The aortic valve leaflets are mildly thickened. Systolic excursion of the aortic valve is normal. There is no evidence of aortic regurgitation. There is no evidence of aortic stenosis. Mitral Valve: The mitral valve leaflets are mildly thickened. There is no evidence of mitral regurgitation. There is no evidence of mitral stenosis. Tricuspid Valve: The tricuspid valve leaflets are normal. There is trace tricuspid regurgitation. No pulmonary hypertension is noted. Pulmonic Valve: The pulmonic valve appears normal. There is a trace pulmonic regurgitation. Pericardium: There is no significant pericardial effusion. Aorta: The aortic root appears normal. There is no dilatation of the aortic arch. Pulmonary Artery: The main pulmonary artery appears normal. Venous: The inferior vena cava appears normal in size. There is less than 50% respiratory change in the inferior vena cava dimension. Conclusions The left ventricular chamber size is normal. The left ventricle appears hyperdynamic. Global left ventricular wall motion and contractility are within normal limits. The estimated ejection fraction is greater than 65%. The right ventricular global systolic function is hyperdynamic. The aortic valve leaflets are mildly thickened with normal function. The mitral, tricuspid and pulmonic valve leaflets show normal excursion. There is trace tricuspid regurgitation. No prior echo to compare. Measurements Name Value Normal Range RVIDd (AP) 2D 2.4 cm (0.9 - 2.6) RVDdMajor (2D) 2.6 cm (2.2 - 4.4) RAd ISD 4CH 4.9 cm (3.4 - 4.9) RA (A4C)W 3.9 cm (2.9 - 4.6) IVSd (2D) 1.1 cm (0.6 - 1) LVPWd (2D) 1 cm (0.6 - 1) LVIDd (2D) 4 cm (3.6 - 5.4) LVIDs (2D) 2.5 cm - LV FS (2D) 37 % (25 - 45) Aortic Annulus 2 cm (1.4 - 2.6) Ao root diameter (2D) 3 cm (2.1 - 3.5) Ascending Ao 2.7 cm (2.1 - 3.4) Aortic arch 2.2 cm (1.8 - 3.4) LA dimension (AP) 2D 3.5 cm (2.3 - 3.8) LAd ISD 4CH 5.1 cm (2.9 - 5.3) LA ISD 4CH W 3.7 cm (2.5 - 4.5) Name Value Normal Range LA ESV SP 4CH (A/L) 43.66 ml - LA ESV SP 2CH (A/L) 51.26 ml - LA ESV BP (A/L) 48.01 ml - LA ESV BP (A/L) index 31 ml/m2 - LA ESV SP 4CH (MOD) 41.19 ml - LA ESV SP 2CH (MOD) 48.12 ml - LV EDV SP 4CH (MOD) 47.27 ml - LV ESV SP 4CH (MOD) 11.24 ml - EF SP 4CH (MOD) 76.22 % - LV EDV SP 2CH (MOD) 57.08 ml - LV ESV SP 2CH (MOD) 20.7 ml - EF SP 2CH (MOD) 63.74 % - LV EDV BP 52.07 ml - LV ESV BP 15.59 ml - BP EF (MOD) 70 % - Name Value Normal Range MV E-wave Vmax 0.8 m/sec - MV deceleration time 119 msec - MV A-wave Vmax 0.7 m/sec - MV E:A ratio 1.1 ratio - P. vein S-wave Vmax 0.7 m/sec - P. vein D-wave Vmax 0.51 m/sec - P. vein S:D Vmax ratio 1.5 ratio - P. vein A-wave duration 67 msec - LV septal e' Vmax 0.1 m/sec - LV lateral e' Vmax 0.15 m/sec - LV E:e' septal ratio 8 ratio - LV E:e' lateral ratio 5.3 ratio - Name Value Normal Range AV Vmax 1.6 m/sec - AV VTI 28 cm - AV peak gradient 10 mmHg - AV mean gradient 5.6 mmHg - LVOT Vmax 1.5 m/sec - LVOT VTI 25 cm - LVOT peak gradient 9 mmHg - LVOT mean gradient 4.6 mmHg - LACY Vmax 1.4 m/sec - Name Value Normal Range TR Vmax 2.7 m/sec - TR peak gradient 29 mmHg - RAP 3 mmHg - RVSP 32 mmHg - IVC diameter 1.7 cm - Name Value Normal Range PV Vmax 1 m/sec - PV peak gradient 4 mmHg -
[2017-12-13] MEDS: QUEtiapine TAB* 100 MG PO SCH (22:03)
[2017-12-14] MEDS: Pantoprazole IV* 40 MG IV SCH (01:57)
[2017-12-14] MEDS: HYDROmorphone INJ* 2 MG/ML CARPUJECT SYRINGE IV SLOW PU PRN ×2 (04:13→08:22)
[2017-12-14] MEDS: Heparin VIAL(*) 5000 UNITS/ML VIAL (FIVE THOUSAND) SUBCUT SCH ×3 (05:27→21:48)
[2017-12-14] MEDS: Amphetamine MIXED SALT TAB* 10 MG TAB PO SCH ×2 (08:21→17:11)
[2017-12-14] MEDS: ARIPiprazole TAB* 2 MG PO SCH (08:21)
[2017-12-14] MEDS: lamoTRIgine TAB(*) 100 MG PO SCH ×2 (08:21→21:42)
[2017-12-14] MEDS: cloNIDine TAB* 0.1 MG PO SCH ×2 (08:22→21:42)
[2017-12-14] MEDS: PROCHLORPERAZINE INJ 5 MG/ML 2 ML VIAL IV PRN (08:22)
[2017-12-14] MEDS: NS 0.9% 1000 ML* 1,000 ML IV SCH (08:24)
--- NOTE | 2017-12-14 09:17 | PN ---
Progress Note - Progress Note Date of Service: 12/14/17 SOAP: Subjective: Pain controlled. Eating fulls. No flatus. Objective: Vital Signs Temp 99.0 F 12/14/17 04:05 Pulse 97 12/14/17 04:05 Resp 20 12/14/17 08:22 BP 115/55 12/14/17 04:05 Pulse Ox 97 12/14/17 07:00 Gen: Sitting in chair; NAD Abd: incis c/d/i; no erythema; soft; tender in RLQ. Intake & Output 12/13/17 12/14/17 12/14/17 18:59 06:59 18:59 Intake Total 2353 480 Output Total 1305 3160 1050 Balance 1048 -2680 -1050 Weight 130 lb 6.4 oz Intake: IVPB 550 Meropenem 118 NS (0.9%) 432 TPN/PPN 1553 Oral 250 480 Tube Feeding 0 Tube Feeding Flush Amount 0 Output: G Tube 5 60 Urine 1300 3100 1050 Tube Feeding Residual 0 Amount Wasted Other: Estimated Void Large # Bowel Movements 0 # Voids 1 Assessment: POD#8 s/p exlap for SBO and repair perf/POD#12 s/p repair internal hernia. SBO with perf and peritonitis on IV abx. CT confirms peritonitis and the paracentesis fluid GS was negative. Post-op ileus complicated by narcotics. RLQ tenderness is new but may be due to ileus. Malnutrition. Chronic iron deficiency anemia, Post Bariatric surgery. Plan: IV abx until C&S back. Cont po/TPN and start TF again.
[2017-12-14] MEDS ORDERED: Furosemide IV* 10 MG/ML 2 ML VIAL (20 MG) IV ONE (13:08)
[2017-12-14] MEDS: TPN* 24 HR with Dextrose 50% Water* 500 ML, Amino Acid Infusion 10%* 850 ML, Sterile Wa... CENTR SCH ×12 (17:11)
--- NOTE | 2017-12-14 19:10 | PN ---
Subjective Date of Service: 12/14/17 Interval History: complains of ongoing abdominal pain. breathing is a little better after a dose of lasix. No diarrhea, constipation, chest pain. Family History: Unchanged from Admission Social History: Unchanged from Admission Past Medical History: Unchanged from Admission Objective Active Medications: Acetaminophen (Tylenol Tab*) 650 mg PO Q6H PRN PRN Reason: HEADACHE Last Admin: 12/12/17 12:45 Dose: 650 mg Amphetamine/Dextroamphetamine (Adderall Tab*) 10 mg PO 0900,1600 [facility] Last Admin: 12/14/17 17:11 Dose: 10 mg Aripiprazole (Abilify Tab*) 2 mg PO DAILY [facility] Last Admin: 12/14/17 08:21 Dose: 2 mg Buspirone HCl (Buspar Tab*) 10 mg PO TID PRN PRN Reason: ANXIETY Last Admin: 12/10/17 06:21 Dose: 10 mg Clonidine HCl (Catapres Tab*) 0.1 mg PO BID [facility] Last Admin: 12/14/17 08:22 Dose: 0.1 mg Docusate Sodium (Colace Cap*) 100 mg PO BID PRN PRN Reason: CONSTIPATION Last Admin: 12/12/17 20:37 Dose: 100 mg Heparin Sodium (Porcine) (Heparin Flush Picc/Ml/Cvc(*)) 0 ml FLUSH 0600,1800 [facility] PRN Reason: Protocol Last Admin: 12/14/17 17:15 Dose: Not Given Heparin Sodium (Porcine) (Heparin Vial(*)) 5,000 units SUBCUT Q8HR [facility] Last Admin: 12/14/17 14:12 Dose: 5,000 units Hydromorphone HCl (Dilaudid Inj*) 1 mg IV SLOW PU Q4H PRN PRN Reason: PAIN - MODERATE TO SEVERE Last Admin: 12/14/17 08:22 Dose: 1 mg Hydromorphone HCl (Dilaudid Catering Staff Member*) 20 mg in 20 mls @ 0 mls/hr COMPUTATIONAL GENETICIST .change Q24H [facility]; Per Protocol PRN Reason: Protocol Last Admin: 12/12/17 20:22 Dose: 0.2 mls/hr Sodium Chloride (Ns 0.9% 1000 Ml*) 1,000 mls @ 30 mls/hr IV .KVO [facility] PRN Reason: KVO Last Admin: 12/14/17 08:24 Dose: 30 mls/hr Dextrose 500 ml/ Amino Acids 850 ml/ Sterile Water 150 ml/Fat Emulsion Intravenous 250 ml/ Sodium Chloride 100 meq/Potassium Chloride 50 meq/Potassium Phosphate 15 mmole/Calcium Gluconate 15 meq/Magnesium Sulfate 10 meq/ Multivitamins 10 ml/ Trace Metals 1 ml/ Nutrition ( Parenteral) 1,850.721 mls @ 77.113 mls/hr [facility] 1700 [facility] Last Admin: 12/14/17 17:11 Dose: 77.113 mls/hr Vancomycin HCl 1,000 mg/ (Sodium Chloride) 250 mls @ 166.667 mls/hr IVPB ONCE [facility] PRN Reason: Protocol Stop: 12/14/17 23:59 Lamotrigine (Lamictal Tab(*)) 150 mg PO BID [facility] Last Admin: 12/14/17 08:21 Dose: 150 mg Lorazepam (Ativan Inj*) 0.5 mg IV BEDTIME PRN PRN Reason: SLEEP Last Admin: 12/08/17 22:36 Dose: 0.5 mg Pantoprazole Sodium (Protonix Iv*) 40 mg IV Q24H [facility] Last Admin: 12/14/17 01:57 Dose: 40 mg Prochlorperazine Edisylate (Compazine Inj*) 10 mg IV Q6H PRN PRN Reason: NAUSEA/VOMITING Last Admin: 12/14/17 08:22 Dose: 10 mg Quetiapine Fumarate (Seroquel Tab*) 150 mg PO BEDTIME [facility] Last Admin: 12/13/17 22:03 Dose: 150 mg Vital Signs - 8 hr 12/14/17 12/14/17 12/14/17 11:40 11:57 16:05 Temperature 98.6 F 99.3 F Pulse Rate 93 101 Respiratory 20 18 16 Rate Blood Pressure 108/54 114/57 (mmHg) O2 Sat by Pulse 100 100 Oximetry 12/14/17 12/14/17 16:21 18:00 Temperature Pulse Rate Respiratory 18 20 Rate Blood Pressure (mmHg) O2 Sat by Pulse 97 0 Oximetry Oxygen Devices in Use Now: None Appearance: alert, no distress, breathing more comfortably Eyes: No Scleral Icterus Ears/Nose/Mouth/Throat: NL Teeth, Lips, Gums Neck: NL Appearance and Movements; NL JVP Respiratory: Symmetrical Chest Expansion and Respiratory Effort, Clear to Auscultation Cardiovascular: NL Sounds; No Murmurs; No JVD, RRR Abdominal: - - midline incision clean, LUQ with TFs Lymphatic: No Cervical Adenopathy Extremities: No Edema, - - RUQ picc with TPN Neurological: Alert and Oriented x 3 Result Diagrams: 12/13/17 08:30 12/13/17 10:40 Additional Lab and Data: Laboratory Results - last 24 hr 12/11/17 12/11/17 12/11/17 11:50 17:46 23:34 WBC RBC Hgb Hct MCV MCH MCHC RDW Plt Count MPV Neut % (Auto) Lymph % (Auto) Hunt % (Auto) Eos % (Auto) Baso % (Auto) Absolute Neuts (auto) Absolute Lymphs (auto) Absolute Monos (auto) Absolute Eos (auto) Absolute Basos (auto) Absolute Nucleated RBC Nucleated RBC % Sodium Potassium Chloride Carbon Dioxide Anion Gap BUN Creatinine Est GFR ( Amer) Est GFR (Non-Af Amer) BUN/Creatinine Ratio Glucose POC Glucose (mg/dL) 115 H 111 H 141 H Calcium Phosphorus Magnesium Total Bilirubin AST ALT Alkaline Phosphatase Total Protein Albumin Globulin Albumin/Globulin Ratio Prealbumin Triglycerides Cholesterol Blood Type Antibody Screen Crossmatch 12/12/17 12/12/17 12/12/17 04:36 04:37 04:37 WBC 16.5 H RBC 3.15 L Hgb 7.5 L Hct 23 L MCV 74 L MCH 24 L MCHC 32 RDW 18 H Plt Count 469 H D MPV 7 L Neut % (Auto) 77.8 Lymph % (Auto) 11.2 L Hunt % (Auto) 8.6 Eos % (Auto) 1.6 Baso % (Auto) 0.8 Absolute Neuts (auto) 12.9 H Absolute Lymphs (auto) 1.9 Absolute Monos (auto) 1.4 H Absolute Eos (auto) 0.3 Absolute Basos (auto) 0.1 Absolute Nucleated RBC 0 Nucleated RBC % 0 Sodium 132 L Potassium 4.2 Chloride 103 Carbon Dioxide 25 Anion Gap 4 BUN 11 Creatinine 0.39 L Est GFR ( Amer) 234.1 Est GFR (Non-Af Amer) 182.0 BUN/Creatinine Ratio 28.2 H Glucose 122 H POC Glucose (mg/dL) Calcium 7.7 L Phosphorus 3.9 Magnesium 2.2 Total Bilirubin 0.20 AST 12 L ALT 10 Alkaline Phosphatase 45 Total Protein 4.7 L Albumin 2.1 L Globulin 2.6 Albumin/Globulin Ratio 0.8 L Prealbumin 10 L Triglycerides 81 Cholesterol 68 Blood Type O Positive Antibody Screen Negative Crossmatch See Detail 12/12/17 12/12/17 05:54 12:50 WBC RBC Hgb Hct MCV MCH MCHC RDW Plt Count MPV Neut % (Auto) Lymph % (Auto) Hunt % (Auto) Eos % (Auto) Baso % (Auto) Absolute Neuts (auto) Absolute Lymphs (auto) Absolute Monos (auto) Absolute Eos (auto) Absolute Basos (auto) Absolute Nucleated RBC Nucleated RBC % Sodium Potassium Chloride Carbon Dioxide Anion Gap BUN Creatinine Est GFR ( Amer) Est GFR (Non-Af Amer) BUN/Creatinine Ratio Glucose POC Glucose (mg/dL) 137 H 107 H Calcium Phosphorus Magnesium Total Bilirubin AST ALT Alkaline Phosphatase Total Protein Albumin Globulin Albumin/Globulin Ratio Prealbumin Triglycerides Cholesterol Blood Type Antibody Screen Crossmatch Microbiology and Other Data: Microbiology 12/05/17 21:57 Blood Venous Aerobic Blood Culture - Final No Growth Day 5 12/05/17 21:57 Blood Venous Anaerobic Blood Culture - Final No Growth Day 5 12/05/17 21:42 Blood Venous Aerobic Blood Culture - Final No Growth Day 5 12/05/17 21:42 Blood Venous Anaerobic Blood Culture - Final No Growth Day 5 12/05/17 23:43 Peritoneal Fluid Gram Stain - Final 12/05/17 23:43 Peritoneal Fluid Body Fluid Culture - Final Esbl Escherichia Coli Anne Marie Albicans Lactobacillus Species 12/06/17 02:40 Nasal Nasal Screen MRSA (PCR)(ELROY) - Final Mrsa Negative 12/01/17 23:53 Urine Urine Culture - Final Esbl Escherichia Coli Normal Charisma Assess/Plan/Problems-Billing Assessment: 42yo female PMH gastric bypass, kidney stones, recurrent UTI, ADHD, Bipolar disorder, p/w abdominal pain found to have internal hernia s/p ex lap and is POD #6 after a repeat ex-lap with closure of small jejeunal hole. Septic (resolved) . ESBL Ecoli in urine and peritoneal fluid, now on meropenem day 6/7 and TPN+ regular diet and now starting TFs. No BMs or flatus. - Patient Problems (1) Dyspnea on exertion Current Visit: Yes Status: Acute Priority: High Code(s): R06.09 - OTHER FORMS OF DYSPNEA SNOMED Code(s): 85162349 Comment: Likely related to effusions and ascites. renal, hepatic, and cardiac function are normal, so likely from the ivf she has received intraop, postop, as well as tpn. Gentle diuresis may help her. PE remains on the differential, but will attempt diuresis first (2) Status post exploratory laparotomy Current Visit: Yes Status: Acute Code(s): Z98.890 - OTHER SPECIFIED POSTPROCEDURAL STATES SNOMED Code(s): 354022098 Comment: During an exploratory laparotomy, surgery found a perforation in jejunum. Perforation repaired and PEG tube placed for decompression of stomach. Yesterday she did not tolerate tube feeds, so TPN was continued. Plan to attempt tube feeds again today. (3) Sepsis Current Visit: Yes Status: Acute Comment: thought to be due to ESBL ecoli UTI and bowel perforation, which have both been treated, however she still remains tachycardic, tachypneic, and with leukocytosis. I believe there are alternative explanations to these findings aside from infectious sources, but I would have a low threshold to re-culture her. She completed 7 days of meropenem for esbl yesterday, but today she has thrombocytosis and leukocytosis , so I am resuming vancomycin given her central line and possibility of occult infection ongoing. 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 s/p 1u pRBC on 12/13. Iron 17, Iron Sat 3%. Ferritin <10. Status and Disposition: surgery inpatient, medicine consulting.
[2017-12-14] MEDS ORDERED: Vancomycin(*) 1,000 MG in NS 0.9% 250 ML* 250 ML IVPB ONE (20:00)
[2017-12-14] MEDS: QUEtiapine TAB* 100 MG PO SCH (21:43)
[2017-12-14] MEDS: HYDROmorphone PCA* 20 MG/20 ML PCA.SYRING PCA SCH (21:44)
[2017-12-14] MEDS ORDERED: Vancomycin per Pharmacy* NOTE FOLLOW UP PRN (22:23)
[2017-12-15] MEDS: Pantoprazole IV* 40 MG IV SCH (01:43)
[2017-12-15] MEDS: Vancomycin(*) 1,000 MG in NS 0.9% 250 ML* 250 ML IVPB SCH ×3 (03:58→21:17)
[2017-12-15] MEDS: Heparin VIAL(*) 5000 UNITS/ML VIAL (FIVE THOUSAND) SUBCUT SCH ×3 (05:51→22:42)
[2017-12-15 06:32] LABS: Hematocrit 27 % (35-47); Hemoglobin 8.7 g/dl (12.0-16.0); Mean Corpuscular HGB Conc 33 g/dl (31-36); Mean Corpuscular Hemoglobin 25 pg (27-31); Mean Corpuscular Volume 75 fL (80-97); Mean Platelet Volume 8 um3 (7.4-10.4); Platelet Count 934 10^3/ul (150-450); Red Blood Count 3.53 10^6/ul (4.0-5.4); Red Cell Distribution Width 18 % (10.5-15); White Blood Count 19.5 10^3/ul (3.5-10.8)
[2017-12-15 06:44] LABS: EGFR Non-African American 176.8 (>60)
[2017-12-15 09:09] LABS: Monocytes % 10 % (0-13)
[2017-12-15] MEDS: lamoTRIgine TAB(*) 100 MG PO SCH ×2 (09:28→21:16)
[2017-12-15] MEDS: ARIPiprazole TAB* 2 MG PO SCH (09:29)
[2017-12-15] MEDS: Amphetamine MIXED SALT TAB* 10 MG TAB PO SCH ×2 (09:29→15:30)
[2017-12-15] MEDS: cloNIDine TAB* 0.1 MG PO SCH ×2 (09:29→21:16)
--- NOTE | 2017-12-15 09:40 | PN ---
Progress Note - Progress Note Date of Service: 12/15/17 SOAP: Subjective: Feeling better today, ambulatory. Gets tired after walking, not much energy. Denies nausea or vomiting. Abdominal pain is improving. Objective: Awake and alert, comfortable sitting up on her bed VSS, Tmax 99.4, HR 90s Lungs CTA bilat. Heart RRR, no murmurs Abdomen soft, less distended. Mild incisional tenderness. Incision C/D/I. Labs noted, WBCs down to 19,000, lytes improving I/O's noted, over 6 liters output yesterday Assessment: s/p laparotomy with repair of internal hernia, then repair of enterotomy, clinically stable Plan: Continue TPN and tube feed at current rate 15ml/hr Check labs tomorrow Will d/w Dr. Ohara
--- NOTE | 2017-12-15 11:57 | PN ---
Progress Note - Progress Note Date of Service: 12/15/17 SOAP: Subjective: Breathing better. Still has RLQ pain. No appetite but tolerating Boost 1 can day. Still no flatus/BM reported. Objective: Vital Signs Temp 98.3 F 12/15/17 07:53 Pulse 94 12/15/17 07:53 Resp 16 12/15/17 10:34 BP 108/58 12/15/17 07:53 Pulse Ox 100 12/15/17 10:34 Gen: NAD, walking in halls. Abd: Soft with tender RLQ; M/L incision intact except small area of drainage at supraumbilical site. Intake & Output 12/14/17 12/15/17 12/15/17 18:59 06:59 18:59 Intake Total 1999 3066 57 Output Total 4110 1950 675 Balance -2110 1116 -618 Weight 127 lb Intake: IV Fluids 983 NS (0.9%) 983 IVPB 250 ABX - VANCOMYCIN 250 TPN/PPN 1800 946 Oral 200 580 Tube Feeding 277 42 Tube Feeding Flush Amount 30 15 Output: Urine 4110 1950 675 Tube Feeding Residual 0 Amount Wasted Other: Estimated Void Medium # Voids 2 ascites fluid c&s pending Assessment: POD#9 s/p exlap for SBO and repair perf/POD#13 s/p repair internal hernia. Small abdominal fascial dehiscence with drainage. I do not think that surgical intervention will improve this situation and that she is at low risk of evisceration. SBO with perf and peritonitis on IV abx. CT confirms peritonitis and the paracentesis fluid GS was negative. Post-op ileus complicated by narcotics. RLQ tenderness is new but may be due to ileus. Malnutrition. Chronic iron deficiency anemia, Post Bariatric surgery. Plan: Will manage dehiscence with local wound care and abdominal binder. Possible VAC placement. Increase TF and stop TPN. May need to resume if unable to tolerated TF/po. Await cultures on ascites before IV abx are stopped.
[2017-12-15] MEDS ORDERED: Meropenem 1 GM PREMIX(*) 1 GM/50 ML BAG IV SCH (15:00)
--- NOTE | 2017-12-15 15:00 | PN ---
Progress Note - Progress Note Date of Service: 12/15/17 SOAP: Subjective: CC: peritonitis HPI: 42 year old woman with hx gastric bypass, admitted with internal hernia which was repaired, back to OR for jejunal leak. Abd pain improved, no BM, no fever or rash. Objective: Vital Signs Temp 36.8 C 12/15/17 07:53 Pulse 94 12/15/17 07:53 Resp 16 12/15/17 10:34 BP 108/58 12/15/17 07:53 Pulse Ox 100 12/15/17 10:34 Intake & Output 12/14/17 12/15/17 12/15/17 18:59 06:59 18:59 Intake Total 1999 3066 177 Output Total 4110 1950 975 Balance -2110 1116 -798 Weight 127 lb Intake: IV Fluids 983 NS (0.9%) 983 IVPB 250 ABX - VANCOMYCIN 250 TPN/PPN 1800 946 Oral 200 580 120 Tube Feeding 277 42 Tube Feeding Flush Amount 30 15 Output: Urine 4110 1950 975 Tube Feeding Residual 0 Amount Wasted Other: Estimated Void Medium # Voids 2 Gen:awake, no distress HEENT:PERRL, MMM Heart:RRR no murmur Lungs:CTA BL Abd:+BS NTND soft; binder in place Skin: no rash Microbiology 12/13/17 15:45 Gram Stain - Final Ascites Fluid Body Fluid Culture - Preliminary Escherichia Coli Assessment: 1. peritonitis s/p laparotomy ; E.coli/ESBL. Recent ascites while on meropenem ; still growing E.coli but overall improving 2. TPN 3. s/p internal hernia repair 5. anaphylaxis with pcn, cephalosporin; tolerates meropenem Plan: 1. continue vancomycin (added 12/14) and meropenem; will hold off on changing coverage given that she is improving and until sensitivity data is back.
[2017-12-15] MEDS: Meropenem 1 GM PREMIX(*) 1 GM/50 ML BAG IV SCH ×2 (15:30→23:35)
--- NOTE | 2017-12-15 17:34 | PN ---
Subjective Date of Service: 12/15/17 Interval History: Feeling better today. Walking without dyspnea. Pain is better controlled. Tolerating tube feeds without nausea. Family History: Unchanged from Admission Social History: Unchanged from Admission Past Medical History: Unchanged from Admission Objective Active Medications: Acetaminophen (Tylenol Tab*) 650 mg PO Q6H PRN PRN Reason: HEADACHE Last Admin: 12/12/17 12:45 Dose: 650 mg Amphetamine/Dextroamphetamine (Adderall Tab*) 10 mg PO 0900,1600 [facility] Last Admin: 12/15/17 15:30 Dose: 10 mg Aripiprazole (Abilify Tab*) 2 mg PO DAILY [facility] Last Admin: 12/15/17 09:29 Dose: 2 mg Buspirone HCl (Buspar Tab*) 10 mg PO TID PRN PRN Reason: ANXIETY Last Admin: 12/10/17 06:21 Dose: 10 mg Clonidine HCl (Catapres Tab*) 0.1 mg PO BID [facility] Last Admin: 12/15/17 09:29 Dose: 0.1 mg Docusate Sodium (Colace Cap*) 100 mg PO BID PRN PRN Reason: CONSTIPATION Last Admin: 12/12/17 20:37 Dose: 100 mg Heparin Sodium (Porcine) (Heparin Flush Picc/Ml/Cvc(*)) 0 ml FLUSH 0600,1800 [facility] PRN Reason: Protocol Last Admin: 12/15/17 17:05 Dose: 1 ml Heparin Sodium (Porcine) (Heparin Vial(*)) 5,000 units SUBCUT Q8HR [facility] Last Admin: 12/15/17 13:41 Dose: 5,000 units Hydromorphone HCl (Dilaudid Inj*) 1 mg IV SLOW PU Q4H PRN PRN Reason: PAIN - MODERATE TO SEVERE Last Admin: 12/14/17 08:22 Dose: 1 mg Hydromorphone HCl (Dilaudid Pipe Stem Sawyer*) 20 mg in 20 mls @ 0 mls/hr MILIEU COUNSELOR .change Q24H [facility]; Per Protocol PRN Reason: Protocol Last Admin: 12/14/17 21:44 Dose: 20 mls/hr Sodium Chloride (Ns 0.9% 1000 Ml*) 1,000 mls @ 30 mls/hr IV .KVO [facility] PRN Reason: KVO Last Admin: 12/14/17 08:24 Dose: 30 mls/hr Vancomycin HCl 1,000 mg/ (Sodium Chloride) 250 mls @ 166.667 mls/hr IVPB Q8H [facility] Last Admin: 12/15/17 11:51 Dose: 166.667 mls/hr Meropenem (Merrem 1 Gm Premix(*)) 1 gm in 50 mls @ 100 mls/hr IV Q8H [facility] Last Admin: 12/15/17 15:30 Dose: 100 mls/hr Lamotrigine (Lamictal Tab(*)) 150 mg PO BID [facility] Last Admin: 12/15/17 09:28 Dose: 150 mg Lorazepam (Ativan Inj*) 0.5 mg IV BEDTIME PRN PRN Reason: SLEEP Last Admin: 12/08/17 22:36 Dose: 0.5 mg Pantoprazole Sodium (Protonix Iv*) 40 mg IV Q24H [facility] Last Admin: 12/15/17 01:43 Dose: 40 mg Pharmacy Consult (Vancomycin Per Pharmacy*) 1 note FOLLOW UP . PRN PRN Reason: PER PROTOCOL Pharmacy Profile Note (Vancomycin Trough Check) 1 note FOLLOW UP 1930 ONE Stop: 12/15/17 19:31 Prochlorperazine Edisylate (Compazine Inj*) 10 mg IV Q6H PRN PRN Reason: NAUSEA/VOMITING Last Admin: 12/14/17 08:22 Dose: 10 mg Quetiapine Fumarate (Seroquel Tab*) 150 mg PO BEDTIME [facility] Last Admin: 12/14/17 21:43 Dose: 150 mg Vital Signs - 8 hr 12/15/17 12/15/17 12/15/17 10:34 11:26 15:02 Temperature 97.2 F Pulse Rate 97 Respiratory 16 16 16 Rate Blood Pressure 113/51 (mmHg) O2 Sat by Pulse 100 97 98 Oximetry 12/15/17 12/15/17 15:10 17:00 Temperature 98.3 F Pulse Rate 106 Respiratory 16 16 Rate Blood Pressure 123/61 (mmHg) O2 Sat by Pulse 97 97 Oximetry Oxygen Devices in Use Now: None Appearance: alert, well appearing today Eyes: No Scleral Icterus Ears/Nose/Mouth/Throat: NL Teeth, Lips, Gums Neck: NL Appearance and Movements; NL JVP Respiratory: Symmetrical Chest Expansion and Respiratory Effort Cardiovascular: NL Sounds; No Murmurs; No JVD Abdominal: - - binder in place Extremities: - - LUE picc Skin: No Rash or Ulcers Neurological: Alert and Oriented x 3 Result Diagrams: 12/15/17 05:45 12/15/17 05:45 Additional Lab and Data: Laboratory Results - last 24 hr 12/11/17 12/11/17 12/11/17 11:50 17:46 23:34 WBC RBC Hgb Hct MCV MCH MCHC RDW Plt Count MPV Neut % (Auto) Lymph % (Auto) Latimer % (Auto) Eos % (Auto) Baso % (Auto) Absolute Neuts (auto) Absolute Lymphs (auto) Absolute Monos (auto) Absolute Eos (auto) Absolute Basos (auto) Absolute Nucleated RBC Nucleated RBC % Sodium Potassium Chloride Carbon Dioxide Anion Gap BUN Creatinine Est GFR ( Amer) Est GFR (Non-Af Amer) BUN/Creatinine Ratio Glucose POC Glucose (mg/dL) 115 H 111 H 141 H Calcium Phosphorus Magnesium Total Bilirubin AST ALT Alkaline Phosphatase Total Protein Albumin Globulin Albumin/Globulin Ratio Prealbumin Triglycerides Cholesterol Blood Type Antibody Screen Crossmatch 12/12/17 12/12/17 12/12/17 04:36 04:37 04:37 WBC 16.5 H RBC 3.15 L Hgb 7.5 L Hct 23 L MCV 74 L MCH 24 L MCHC 32 RDW 18 H Plt Count 469 H D MPV 7 L Neut % (Auto) 77.8 Lymph % (Auto) 11.2 L Latimer % (Auto) 8.6 Eos % (Auto) 1.6 Baso % (Auto) 0.8 Absolute Neuts (auto) 12.9 H Absolute Lymphs (auto) 1.9 Absolute Monos (auto) 1.4 H Absolute Eos (auto) 0.3 Absolute Basos (auto) 0.1 Absolute Nucleated RBC 0 Nucleated RBC % 0 Sodium 132 L Potassium 4.2 Chloride 103 Carbon Dioxide 25 Anion Gap 4 BUN 11 Creatinine 0.39 L Est GFR ( Amer) 234.1 Est GFR (Non-Af Amer) 182.0 BUN/Creatinine Ratio 28.2 H Glucose 122 H POC Glucose (mg/dL) Calcium 7.7 L Phosphorus 3.9 Magnesium 2.2 Total Bilirubin 0.20 AST 12 L ALT 10 Alkaline Phosphatase 45 Total Protein 4.7 L Albumin 2.1 L Globulin 2.6 Albumin/Globulin Ratio 0.8 L Prealbumin 10 L Triglycerides 81 Cholesterol 68 Blood Type O Positive Antibody Screen Negative Crossmatch See Detail 12/12/17 12/12/17 05:54 12:50 WBC RBC Hgb Hct MCV MCH MCHC RDW Plt Count MPV Neut % (Auto) Lymph % (Auto) Latimer % (Auto) Eos % (Auto) Baso % (Auto) Absolute Neuts (auto) Absolute Lymphs (auto) Absolute Monos (auto) Absolute Eos (auto) Absolute Basos (auto) Absolute Nucleated RBC Nucleated RBC % Sodium Potassium Chloride Carbon Dioxide Anion Gap BUN Creatinine Est GFR ( Amer) Est GFR (Non-Af Amer) BUN/Creatinine Ratio Glucose POC Glucose (mg/dL) 137 H 107 H Calcium Phosphorus Magnesium Total Bilirubin AST ALT Alkaline Phosphatase Total Protein Albumin Globulin Albumin/Globulin Ratio Prealbumin Triglycerides Cholesterol Blood Type Antibody Screen Crossmatch Microbiology and Other Data: Microbiology 12/05/17 21:57 Blood Venous Aerobic Blood Culture - Final No Growth Day 5 12/05/17 21:57 Blood Venous Anaerobic Blood Culture - Final No Growth Day 5 12/05/17 21:42 Blood Venous Aerobic Blood Culture - Final No Growth Day 5 12/05/17 21:42 Blood Venous Anaerobic Blood Culture - Final No Growth Day 5 12/05/17 23:43 Peritoneal Fluid Gram Stain - Final 12/05/17 23:43 Peritoneal Fluid Body Fluid Culture - Final Esbl Escherichia Coli Anne Marie Albicans Lactobacillus Species 12/06/17 02:40 Nasal Nasal Screen MRSA (PCR)(ELROY) - Final Mrsa Negative 12/01/17 23:53 Urine Urine Culture - Final Esbl Escherichia Coli Normal [facility] Assess/Plan/Problems-Billing Assessment: . - Patient Problems (1) Dyspnea on exertion Current Visit: Yes Status: Acute Priority: High Code(s): R06.09 - OTHER FORMS OF DYSPNEA SNOMED Code(s): 41388837 Comment: Improved after one dose of lasix yesterday. Will hold off on any more. Can be attributed to effusions and ascites. Renal, hepatic, and cardiac function are normal, so likely from the ivf she has received intraop, postop, as well as tpn. (2) Status post exploratory laparotomy Current Visit: Yes Status: Acute Code(s): Z98.890 - OTHER SPECIFIED POSTPROCEDURAL STATES SNOMED Code(s): 464041158 Comment: Increasing TFs today, tolerating well. Hopefully will be able to dc TPN (3) Sepsis Current Visit: Yes Status: Acute Comment: ID following. ESBL ecoli was treated with 7 days of meropenem. Vancomycin was started yesterday for empiric coverage, but today ID recommending daptomycin to cover e. coli in asicites . 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 s/p 1u pRBC on 12/13. Iron 17, Iron Sat 3%. Ferritin <10. Status and Disposition: surgery inpatient, medicine consulting.
[2017-12-15] MEDS ORDERED: Vancomycin Trough Check NOTE FOLLOW UP ONE (19:30)
[2017-12-15 20:25] LABS: Vancomycin Trough 11.5 mcg/mL
[2017-12-15] MEDS: QUEtiapine TAB* 100 MG PO SCH (22:41)
[2017-12-15] MEDS: Acetaminophen TAB* 325 MG PO PRN (23:46)
[2017-12-15] MEDS: NS 0.9% 1000 ML* 1,000 ML IV SCH (23:48)
[2017-12-16] MEDS: Pantoprazole IV* 40 MG IV SCH (02:05)
[2017-12-16] MEDS: Vancomycin(*) 1,000 MG in NS 0.9% 250 ML* 250 ML IVPB SCH ×3 (04:14→20:16)
[2017-12-16] MEDS: Heparin VIAL(*) 5000 UNITS/ML VIAL (FIVE THOUSAND) SUBCUT SCH ×3 (05:50→23:22)
[2017-12-16 06:14] LABS: Hematocrit 21 % (35-47); Hemoglobin 6.8 g/dl (12.0-16.0); Mean Corpuscular HGB Conc 32 g/dl (31-36); Mean Corpuscular Hemoglobin 24 pg (27-31); Mean Corpuscular Volume 76 fL (80-97); Mean Platelet Volume 7 um3 (7.4-10.4); Platelet Count 761 10^3/ul (150-450); Red Blood Count 2.79 10^6/ul (4.0-5.4); Red Cell Distribution Width 19 % (10.5-15); White Blood Count 11.7 10^3/ul (3.5-10.8)
[2017-12-16] MEDS: Meropenem 1 GM PREMIX(*) 1 GM/50 ML BAG IV SCH ×3 (06:24→23:22)
[2017-12-16 06:29] LABS: EGFR Non-African American 246.4 (>60)
[2017-12-16] MEDS: lamoTRIgine TAB(*) 100 MG PO SCH ×2 (08:40→20:15)
[2017-12-16] MEDS: Amphetamine MIXED SALT TAB* 10 MG TAB PO SCH ×2 (08:40→16:15)
[2017-12-16] MEDS: ARIPiprazole TAB* 2 MG PO SCH (08:40)
[2017-12-16] MEDS: cloNIDine TAB* 0.1 MG PO SCH ×2 (08:40→20:15)
--- NOTE | 2017-12-16 10:16 | PN ---
Progress Note - Progress Note Date of Service: 12/16/17 SOAP: Subjective: She cont to have RLQ pain and slept poorly. She notes she had "a lot" of drainage from the wound yesterday. She has no N/V and is tolerating the TFs at higher rate. No flatus or BM yet. Objective: Vital Signs Temp 98.1 F 12/16/17 03:59 Pulse 85 12/16/17 03:59 Resp 16 12/16/17 07:11 BP 93/49 12/16/17 03:59 Pulse Ox 100 12/16/17 07:11 Intake & Output 12/15/17 12/16/17 12/16/17 18:59 06:59 18:59 Intake Total 1326 1252 Output Total 2375 1350 Balance -1049 -98 Weight 125 lb 14.4 oz Intake: IV Fluids 209 NS (0.9%) 209 IVPB 275 ABX - VANCOMYCIN 275 TPN/PPN 665 Oral 120 250 Tube Feeding 42 942 Tube Feeding Flush Amount 15 60 Output: Urine 2375 1350 Tube Feeding Residual 0 0 Amount Wasted Laboratory Results - last 24 hr 12/15/17 12/16/17 12/16/17 19:30 05:45 05:45 WBC 11.7 H RBC 2.79 L Hgb 6.8 L Hct 21 L MCV 76 L MCH 24 L MCHC 32 RDW 19 H Plt Count 761 H D MPV 7 L Sodium 136 Potassium 3.1 L Chloride 108 Carbon Dioxide 23 Anion Gap 5 BUN 13 Creatinine 0.30 L Est GFR ( Amer) 316.9 Est GFR (Non-Af Amer) 246.4 BUN/Creatinine Ratio 43.3 H Glucose 94 Calcium 7.2 L Total Bilirubin 0.20 AST 15 ALT 13 Alkaline Phosphatase 64 Total Protein 5.0 L Albumin 2.2 L Globulin 2.8 Albumin/Globulin Ratio 0.8 L Vancomycin Trough 11.5 Assessment: POD#10 s/p exlap for SBO and repair perf/POD#14 s/p repair internal hernia. SBO with perf and peritonitis on IV abx. Improved. Small abdominal fascial dehiscence with drainage. I do not think that surgical intervention will improve this situation and that she is at low risk of evisceration. Post-op ileus complicated by narcotics. Malnutrition. Acute on Chronic iron deficiency anemia, Post Bariatric surgery. Plan: Replete K+. po Calcium. Transfuse PRBCs for Hb<7. Cont TFs. Ascites has spontaneously drained. Cont local wound care. Cont IV abx per ID.
[2017-12-16] MEDS: KCL 10 MEQ/50 ML IVPREMIX* 10 MEQ/50 ML BAG IV SCH ×4 (11:03→17:18)
[2017-12-16] MEDS ORDERED: KCL 10 MEQ/50 ML IVPREMIX* 10 MEQ/50 ML BAG ONE (17:18)
[2017-12-16] MEDS ORDERED: Magnesium Sulfate 2 GM IV* 2 GM/50 ML BAG IVPB ONE (17:21)
--- NOTE | 2017-12-16 18:29 | PN ---
Subjective Date of Service: 12/16/17 Interval History: . patient awoke spontaneously to voice. denies severe pain, but some abd discomfort. tolerating tube feeding ok. a bit lethargic --> going to be transfused prbc and will reassess (? 2/2 anemia) Family History: Unchanged from Admission Social History: Unchanged from Admission Past Medical History: Unchanged from Admission Objective Active Medications: . Acetaminophen (Tylenol Tab*) 650 mg PO Q6H PRN PRN Reason: HEADACHE Last Admin: 12/15/17 23:46 Dose: 650 mg Amphetamine/Dextroamphetamine (Adderall Tab*) 10 mg PO 0900,1600 [facility] Last Admin: 12/16/17 16:15 Dose: 10 mg Aripiprazole (Abilify Tab*) 2 mg PO DAILY [facility] Last Admin: 12/16/17 08:40 Dose: 2 mg Buspirone HCl (Buspar Tab*) 10 mg PO TID PRN PRN Reason: ANXIETY Last Admin: 12/10/17 06:21 Dose: 10 mg Calcium Citrate (Citracal Tab*) 200 mg PO BID [facility] Clonidine HCl (Catapres Tab*) 0.1 mg PO BID [facility] Last Admin: 12/16/17 08:40 Dose: 0.1 mg Docusate Sodium (Colace Cap*) 100 mg PO BID PRN PRN Reason: CONSTIPATION Last Admin: 12/12/17 20:37 Dose: 100 mg Heparin Sodium (Porcine) (Heparin Flush Picc/Ml/Cvc(*)) 0 ml FLUSH 0600,1800 [facility] PRN Reason: Protocol Last Admin: 12/16/17 16:26 Dose: 1 ml Heparin Sodium (Porcine) (Heparin Vial(*)) 5,000 units SUBCUT Q8HR [facility] Last Admin: 12/16/17 14:35 Dose: 5,000 units Hydromorphone HCl (Dilaudid Inj*) 1 mg IV SLOW PU Q4H PRN PRN Reason: PAIN - MODERATE TO SEVERE Last Admin: 12/14/17 08:22 Dose: 1 mg Hydromorphone HCl (Dilaudid Transport Coordinator*) 20 mg in 20 mls @ 0 mls/hr THEATRE INSTRUCTOR .change Q24H TEE; Per Protocol PRN Reason: Protocol Last Admin: 12/14/17 21:44 Dose: 20 mls/hr Sodium Chloride (Ns 0.9% 1000 Ml*) 1,000 mls @ 30 mls/hr IV .KVO [facility] PRN Reason: KVO Last Admin: 12/15/17 23:48 Dose: 30 mls/hr Vancomycin HCl 1,000 mg/ (Sodium Chloride) 250 mls @ 166.667 mls/hr IVPB Q8H [facility] Last Admin: 12/16/17 13:23 Dose: 166.667 mls/hr Meropenem (Merrem 1 Gm Premix(*)) 1 gm in 50 mls @ 100 mls/hr IV Q8H [facility] Last Admin: 12/16/17 16:14 Dose: 100 mls/hr Lamotrigine (Lamictal Tab(*)) 150 mg PO BID [facility] Last Admin: 12/16/17 08:40 Dose: 150 mg Pantoprazole Sodium (Protonix Iv*) 40 mg IV Q24H [facility] Last Admin: 12/16/17 02:05 Dose: 40 mg Pharmacy Consult (Vancomycin Per Pharmacy*) 1 note FOLLOW UP . PRN PRN Reason: PER PROTOCOL Pharmacy Profile Note (Vancomycin Trough Check) 1 note FOLLOW UP ONCE ONE Stop: 12/18/17 11:31 Prochlorperazine Edisylate (Compazine Inj*) 10 mg IV Q6H PRN PRN Reason: NAUSEA/VOMITING Last Admin: 12/14/17 08:22 Dose: 10 mg Quetiapine Fumarate (Seroquel Tab*) 150 mg PO BEDTIME [facility] Last Admin: 12/15/17 22:41 Dose: 150 mg . Vital Signs - 8 hr 12/16/17 12/16/17 12/16/17 11:00 12:14 13:00 Temperature 98.9 F Pulse Rate 97 Respiratory 16 16 18 Rate Blood Pressure 97/49 (mmHg) O2 Sat by Pulse 100 96 98 Oximetry 12/16/17 12/16/17 12/16/17 15:00 15:16 17:00 Temperature 98.1 F Pulse Rate 95 Respiratory 18 16 18 Rate Blood Pressure 106/54 (mmHg) O2 Sat by Pulse 98 98 98 Oximetry Oxygen Devices in Use Now: None Appearance: ill appearing, mild pain Eyes: No Scleral Icterus Ears/Nose/Mouth/Throat: Clear Oropharnyx Neck: Trachea Midline Respiratory: Symmetrical Chest Expansion and Respiratory Effort Cardiovascular: NL Sounds; No Murmurs; No JVD Abdominal: - - s/p ex-lap. GT. Lymphatic: No Cervical Adenopathy Extremities: No Edema Skin: No Rash or Ulcers Neurological: Alert and Oriented x 3 Lines/Tubes/Other Access: Clean, Dry and Intact Percuteneous Feeding Tube Nutrition: Taking PO's Result Diagrams: 12/17/17 06:15 12/17/17 06:15 Additional Lab and Data: . Microbiology and Other Data: Microbiology 12/05/17 21:57 Blood Venous Aerobic Blood Culture - Final No Growth Day 5 12/05/17 21:57 Blood Venous Anaerobic Blood Culture - Final No Growth Day 5 12/05/17 21:42 Blood Venous Aerobic Blood Culture - Final No Growth Day 5 12/05/17 21:42 Blood Venous Anaerobic Blood Culture - Final No Growth Day 5 12/05/17 23:43 Peritoneal Fluid Gram Stain - Final 12/05/17 23:43 Peritoneal Fluid Body Fluid Culture - Final Esbl Escherichia Coli Anne Marie Albicans Lactobacillus Species 12/06/17 02:40 Nasal Nasal Screen MRSA (PCR)(ELROY) - Final Mrsa Negative 12/01/17 23:53 Urine Urine Culture - Final Esbl Escherichia Coli Normal Charisma Assess/Plan/Problems-Billing . Assessment: 42 yo medically complex female s/p ex-lap for SBO & perforation repair; s/p repair of internal hernia four days earlier Issues: 1. SBO with perforation and peritonitis - on IV antibiotics; Vancomycin, meropenem - stable 2. Small abdominal fascial dehiscence and associated drainage. - surgery team feels she is low risk for evisceration 3. Post-op ileus complicated by narcotics. 4. Malnutrition. - continuing tube feeding 5. Acute on Chronic iron deficiency anemia, Post Bariatric surgery. - Transfusing 1 unit prbc's for Hb<7...follow H&H. 6. FEN: - Repleted potassium (gave add'l 40 mEq) - continuing oral Calcium. 7. Cont local wound care. Status and Disposition: surgery inpatient, medicine consulting.
[2017-12-16] MEDS ORDERED: Potassium Chloride LIQUID* 20 MEQ PACKET PO ONE (18:34)
[2017-12-16 20:00] LABS: Urine Appearance Clear; Urine Blood Negative (Negative); Urine Color Yellow; Urine Ketones Negative (Negative); Urine Protein Negative (Negative); Urine Specific Gravity 1.014 (1.010-1.030); Urine Urobilinogen Negative (Negative)
[2017-12-16] MEDS: HYDROmorphone PCA* 20 MG/20 ML PCA.SYRING PCA SCH (20:00)
[2017-12-16] MEDS: QUEtiapine TAB* 100 MG PO SCH (23:22)
[2017-12-16] MEDS: Calcium Citrate TAB* 200 MG PO SCH (23:22)
[2017-12-16] MEDS: Docusate CAP* 100 MG PO PRN (23:49)
[2017-12-17] MEDS: Pantoprazole IV* 40 MG IV SCH (02:37)
[2017-12-17] MEDS: Vancomycin(*) 1,000 MG in NS 0.9% 250 ML* 250 ML IVPB SCH ×3 (03:45→19:57)
[2017-12-17] MEDS: Heparin VIAL(*) 5000 UNITS/ML VIAL (FIVE THOUSAND) SUBCUT SCH ×3 (05:53→21:53)
[2017-12-17 06:47] LABS: Hematocrit 28 % (35-47); Hemoglobin 9.1 g/dl (12.0-16.0); Mean Corpuscular HGB Conc 32 g/dl (31-36); Mean Corpuscular Hemoglobin 24 pg (27-31); Mean Corpuscular Volume 75 fL (80-97); Mean Platelet Volume 7 um3 (7.4-10.4); Platelet Count 992 10^3/ul (150-450); Red Blood Count 3.72 10^6/ul (4.0-5.4); Red Cell Distribution Width 18 % (10.5-15); White Blood Count 11.8 10^3/ul (3.5-10.8)
[2017-12-17 06:52] LABS: EGFR Non-African American 162.6 (>60)
[2017-12-17 07:06] LABS: ABS Basophils 0.4 10^3/ul (0-0.2); ABS Eosinophils 0.3 10^3/ul (0-0.6); ABS Lymphocytes 2.1 10^3/ul (1.0-4.8); ABS Monocytes 1.1 10^3/ul (0-0.8); ABS Neutrophils 7.9 10^3/ul (1.5-7.7); ABS Nucleated RBC 0 10^3/ul; Eosinophil % 2.3 % (0-6); Lymphocyte % 18.2 % (25-47); Nucleated Red Blood Cells % 0.2
[2017-12-17] MEDS: Meropenem 1 GM PREMIX(*) 1 GM/50 ML BAG IV SCH ×3 (07:11→22:56)
--- NOTE | 2017-12-17 09:15 | PN ---
Progress Note - Progress Note Date of Service: 12/17/17 Note: Surgery Ms. Verma feels "pretty good". She had a small BM, is passing flatus, and is at goal for TF. She had 1 u PRBC yesterday and says she feels better since then. Vital Signs 12/16/17 12/16/17 12/16/17 11:00 12:14 13:00 Temperature 98.9 F Pulse Rate 97 Respiratory 16 16 18 Rate Blood Pressure 97/49 (mmHg) O2 Sat by Pulse 100 96 98 Oximetry 12/16/17 12/16/17 12/16/17 15:00 15:16 17:00 Temperature 98.1 F Pulse Rate 95 Respiratory 18 16 18 Rate Blood Pressure 106/54 (mmHg) O2 Sat by Pulse 98 98 98 Oximetry 12/16/17 12/16/17 12/16/17 19:06 19:44 20:00 Temperature 98.4 F Pulse Rate 101 Respiratory 16 16 14 Rate Blood Pressure 109/49 (mmHg) O2 Sat by Pulse 96 96 Oximetry 12/16/17 12/16/17 12/16/17 20:54 23:00 23:43 Temperature 97.8 F Pulse Rate 90 Respiratory 18 18 20 Rate Blood Pressure 100/56 (mmHg) O2 Sat by Pulse 98 97 98 Oximetry 12/17/17 12/17/17 12/17/17 01:00 02:57 03:56 Temperature 97.9 F Pulse Rate 91 Respiratory 16 18 14 Rate Blood Pressure 107/57 (mmHg) O2 Sat by Pulse 98 94 97 Oximetry 12/17/17 12/17/17 12/17/17 05:00 07:05 08:32 Temperature 97.8 F Pulse Rate 88 Respiratory 18 16 16 Rate Blood Pressure 96/54 (mmHg) O2 Sat by Pulse 95 95 95 Oximetry Abd: good BS, soft, non-tender; there is moderate serous drainage on dressing. Incision: clean with moisture near umbilicus; no signs infection. Intake & Output 12/16/17 12/17/17 12/17/17 22:59 06:59 14:59 Intake Total 1468 1171 49 Output Total 1375 750 300 Balance 93 421 -251 Weight 126 lb 6.4 oz Laboratory Results - last 24 hr 12/15/17 12/16/17 12/16/17 19:30 05:45 05:45 WBC RBC Hgb Hct MCV MCH MCHC RDW Plt Count MPV Neut % (Auto) Lymph % (Auto) Davison % (Auto) Eos % (Auto) Baso % (Auto) Absolute Neuts (auto) Absolute Lymphs (auto) Absolute Monos (auto) Absolute Eos (auto) Absolute Basos (auto) Absolute Nucleated RBC Nucleated RBC % Sodium 136 Potassium 3.1 L Chloride 108 Carbon Dioxide 23 Anion Gap 5 BUN 13 Creatinine 0.30 L Est GFR ( Amer) 316.9 Est GFR (Non-Af Amer) 246.4 BUN/Creatinine Ratio 43.3 H Glucose 94 Calcium 7.2 L Magnesium 1.8 L Total Bilirubin 0.20 AST 15 ALT 13 Alkaline Phosphatase 64 Total Protein 5.0 L Albumin 2.2 L Globulin 2.8 Albumin/Globulin Ratio 0.8 L Free T4 0.92 Free T3 3.20 Urine Color Urine Appearance Urine pH Ur Specific [place] Urine Protein Urine Ketones Urine Blood Urine Nitrate Urine Bilirubin Urine Urobilinogen Ur Leukocyte Esterase Urine Glucose Urine Ascorbic Acid Vancomycin Trough 11.5 Blood Type O Positive Antibody Screen Negative Crossmatch See Detail 12/16/17 12/17/17 12/17/17 19:35 06:15 06:15 WBC 11.8 H RBC 3.72 L Hgb 9.1 L Hct 28 L MCV 75 L MCH 24 L MCHC 32 RDW 18 H Plt Count 992 H D MPV 7 L Neut % (Auto) 67.1 Lymph % (Auto) 18.2 L Davison % (Auto) 9.4 H Eos % (Auto) 2.3 Baso % (Auto) 3.0 H Absolute Neuts (auto) 7.9 H Absolute Lymphs (auto) 2.1 Absolute Monos (auto) 1.1 H Absolute Eos (auto) 0.3 Absolute Basos (auto) 0.4 H Absolute Nucleated RBC 0 Nucleated RBC % 0.2 Sodium 134 Potassium 4.2 Chloride 101 Carbon Dioxide 29 Anion Gap 4 BUN 11 Creatinine 0.43 L Est GFR ( Amer) 209.1 Est GFR (Non-Af Amer) 162.6 BUN/Creatinine Ratio 25.6 H Glucose 95 Calcium 8.6 Magnesium Total Bilirubin AST ALT Alkaline Phosphatase Total Protein Albumin Globulin Albumin/Globulin Ratio Free T4 Cancelled Free T3 Cancelled Urine Color Yellow Urine Appearance Clear Urine pH 6.0 Ur Specific [place] 1.014 Urine Protein Negative Urine Ketones Negative Urine Blood Negative Urine Nitrate Negative Urine Bilirubin Negative Urine Urobilinogen Negative Ur Leukocyte Esterase Negative Urine Glucose Negative Urine Ascorbic Acid * H Vancomycin Trough Blood Type Antibody Screen Crossmatch A/P: Gradual improvement. Continue dressing changes prn; continue abx, TF; encourage activity will provide binder.
[2017-12-17] MEDS: Amphetamine MIXED SALT TAB* 10 MG TAB PO SCH ×2 (09:18→16:21)
[2017-12-17] MEDS: lamoTRIgine TAB(*) 100 MG PO SCH ×2 (09:18→21:58)
[2017-12-17] MEDS: Docusate CAP* 100 MG PO PRN (09:18)
[2017-12-17] MEDS: cloNIDine TAB* 0.1 MG PO SCH ×2 (09:18→21:52)
[2017-12-17] MEDS: Calcium Citrate TAB* 200 MG PO SCH ×2 (09:18→21:51)
[2017-12-17] MEDS: ARIPiprazole TAB* 2 MG PO SCH (09:18)
--- NOTE | 2017-12-17 12:48 | PN ---
Subjective Date of Service: 12/17/17 Interval History: . feels better today than yesterday. denies new s/sx more alert following transfusion. at goal with TF.. surgery following; continuing IV abx... . Family History: Unchanged from Admission Social History: Unchanged from Admission Past Medical History: Unchanged from Admission Objective Active Medications: . Acetaminophen (Tylenol Tab*) 650 mg PO Q6H PRN PRN Reason: HEADACHE Last Admin: 12/15/17 23:46 Dose: 650 mg Amphetamine/Dextroamphetamine (Adderall Tab*) 10 mg PO 0900,1600 [facility] Last Admin: 12/17/17 09:18 Dose: 10 mg Aripiprazole (Abilify Tab*) 2 mg PO DAILY [facility] Last Admin: 12/17/17 09:18 Dose: 2 mg Buspirone HCl (Buspar Tab*) 10 mg PO TID PRN PRN Reason: ANXIETY Last Admin: 12/10/17 06:21 Dose: 10 mg Calcium Citrate (Citracal Tab*) 200 mg PO BID [facility] Last Admin: 12/17/17 09:18 Dose: 200 mg Clonidine HCl (Catapres Tab*) 0.1 mg PO BID [facility] Last Admin: 12/17/17 09:18 Dose: 0.1 mg Docusate Sodium (Colace Cap*) 100 mg PO BID PRN PRN Reason: CONSTIPATION Last Admin: 12/17/17 09:18 Dose: 100 mg Heparin Sodium (Porcine) (Heparin Flush Picc/Ml/Cvc(*)) 0 ml FLUSH 0600,1800 [facility] PRN Reason: Protocol Last Admin: 12/17/17 05:53 Dose: 1 ml Heparin Sodium (Porcine) (Heparin Vial(*)) 5,000 units SUBCUT Q8HR [facility] Last Admin: 12/17/17 05:53 Dose: 5,000 units Hydromorphone HCl (Dilaudid Inj*) 1 mg IV SLOW PU Q4H PRN PRN Reason: PAIN - MODERATE TO SEVERE Last Admin: 12/14/17 08:22 Dose: 1 mg Hydromorphone HCl (Dilaudid Mobile Web Application Developer*) 20 mg in 20 mls @ 0 mls/hr M[employer] 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 .change Q24H [facility]; Per Protocol PRN Reason: Protocol Last Admin: 12/16/17 20:00 Dose: 1 mls/hr Sodium Chloride (Ns 0.9% 1000 Ml*) 1,000 mls @ 30 mls/hr IV .KVO [facility] PRN Reason: KVO Last Admin: 12/15/17 23:48 Dose: 30 mls/hr Vancomycin HCl 1,000 mg/ (Sodium Chloride) 250 mls @ 166.667 mls/hr IVPB Q8H [facility] Last Admin: 12/17/17 11:58 Dose: 166.667 mls/hr Meropenem (Merrem 1 Gm Premix(*)) 1 gm in 50 mls @ 100 mls/hr IV Q8H [facility] Last Admin: 12/17/17 07:11 Dose: 100 mls/hr Lamotrigine (Lamictal Tab(*)) 150 mg PO BID [facility] Last Admin: 12/17/17 09:18 Dose: 150 mg Pantoprazole Sodium (Protonix Iv*) 40 mg IV Q24H [facility] Last Admin: 12/17/17 02:37 Dose: 40 mg Pharmacy Consult (Vancomycin Per Pharmacy*) 1 note FOLLOW UP . PRN PRN Reason: PER PROTOCOL Pharmacy Profile Note (Vancomycin Trough Check) 1 note FOLLOW UP ONCE ONE Stop: 12/18/17 11:31 Prochlorperazine Edisylate (Compazine Inj*) 10 mg IV Q6H PRN PRN Reason: NAUSEA/VOMITING Last Admin: 12/14/17 08:22 Dose: 10 mg Quetiapine Fumarate (Seroquel Tab*) 150 mg PO BEDTIME [facility] Last Admin: 12/16/17 23:22 Dose: 150 mg . Vital Signs - 8 hr 12/17/17 12/17/17 12/17/17 05:00 07:05 08:15 Temperature Pulse Rate Respiratory 18 16 18 Rate Blood Pressure (mmHg) O2 Sat by Pulse 95 95 Oximetry 12/17/17 12/17/17 12/17/17 08:32 09:20 11:22 Temperature 97.8 F Pulse Rate 88 Respiratory 16 16 18 Rate Blood Pressure 96/54 (mmHg) O2 Sat by Pulse 95 96 97 Oximetry Oxygen Devices in Use Now: None Appearance: NAD; sleeping this AM but awoke to voice Eyes: No Scleral Icterus Ears/Nose/Mouth/Throat: Clear Oropharnyx Neck: Trachea Midline Respiratory: Symmetrical Chest Expansion and Respiratory Effort Cardiovascular: NL Sounds; No Murmurs; No JVD Abdominal: - - s/p ex-lap, abd dressed, PEG Extremities: No Edema Skin: No Rash or Ulcers Neurological: Alert and Oriented x 3 Lines/Tubes/Other Access: Clean, Dry and Intact Peripheral IV, Clean, Dry and Intact PICC Line, Clean, Dry and Intact Percuteneous Feeding Tube Nutrition: Taking PO's Result Diagrams: 12/17/17 06:15 12/17/17 06:15 Additional Lab and Data: . Microbiology and Other Data: Microbiology 12/05/17 21:57 Blood Venous Aerobic Blood Culture - Final No Growth Day 5 12/05/17 21:57 Blood Venous Anaerobic Blood Culture - Final No Growth Day 5 12/05/17 21:42 Blood Venous Aerobic Blood Culture - Final No Growth Day 5 12/05/17 21:42 Blood Venous Anaerobic Blood Culture - Final No Growth Day 5 12/05/17 23:43 Peritoneal Fluid Gram Stain - Final 12/05/17 23:43 Peritoneal Fluid Body Fluid Culture - Final Esbl Escherichia Coli Anne Marie Albicans Lactobacillus Species 12/06/17 02:40 Nasal Nasal Screen MRSA (PCR)(ELROY) - Final Mrsa Negative 12/01/17 23:53 Urine Urine Culture - Final Esbl Escherichia Coli Normal [facility]isma Assess/Plan/Problems-Billing . Assessment: 42 yo medically complex female s/p ex-lap for SBO & perforation repair; s/p repair of internal hernia four days earlier Issues: 1. SBO with perforation and peritonitis - on IV antibiotics: Vancomycin & meropenem - stable 2. Small abdominal fascial dehiscence and associated drainage. - surgery team feels she is low risk for evisceration - binder provided 3. Post-op ileus complicated by narcotics. - limiting opiate doses - tolerating TF, which are at goal for rate. 4. Malnutrition: - continuing tube feeding 5. Acute on Chronic iron deficiency anemia, Post Bariatric surgery. - Transfusing 1 unit prbc's for Hb<7...f/u Hgb > 9... - continue to trend 6. FEN: - Repleted potassium (gave add'l 40 mEq) - continuing oral Calcium. 7. Cont local wound care as per surgery - perhaps a wound vac... . Status and Disposition: surgery inpatient, medicine consulting.
[2017-12-17] MEDS: PROCHLORPERAZINE INJ 5 MG/ML 2 ML VIAL IV PRN (16:21)
[2017-12-17] MEDS: QUEtiapine TAB* 100 MG PO SCH (21:59)
[2017-12-18] MEDS: Pantoprazole IV* 40 MG IV SCH (02:27)
[2017-12-18] MEDS: Vancomycin(*) 1,000 MG in NS 0.9% 250 ML* 250 ML IVPB SCH ×3 (04:05→20:21)
[2017-12-18] MEDS: Heparin VIAL(*) 5000 UNITS/ML VIAL (FIVE THOUSAND) SUBCUT SCH ×3 (05:38→23:03)
[2017-12-18 06:18] LABS: EGFR Non-African American 143.2 (>60)
[2017-12-18] MEDS: Meropenem 1 GM PREMIX(*) 1 GM/50 ML BAG IV SCH ×3 (06:56→23:05)
[2017-12-18] MEDS: ARIPiprazole TAB* 2 MG PO SCH (09:15)
[2017-12-18] MEDS: Calcium Citrate TAB* 200 MG PO SCH ×2 (09:15→20:21)
[2017-12-18] MEDS: cloNIDine TAB* 0.1 MG PO SCH ×2 (09:15→20:22)
[2017-12-18] MEDS: Amphetamine MIXED SALT TAB* 10 MG TAB PO SCH ×2 (09:15→15:39)
[2017-12-18] MEDS: lamoTRIgine TAB(*) 100 MG PO SCH ×2 (09:16→20:22)
--- NOTE | 2017-12-18 11:23 | PN ---
Progress Note - Progress Note Date of Service: 12/18/17 SOAP: Subjective: Reports feeling about the same. Still unable to increase PO intake, feels full rather quickly. Abdominal pain about the same. Feeling tired, no energy. Denies fever or chills. TPN d/c'ed, T-feeding d/c'ed yesterday due to high residual. Objective: Awake and alert, comfortable in bed VSS, afebrile Abdomen soft, mildly distended. Mild suprapubic tenderness. No hernias or masses. Labs noted, WBCs normalizing I/O's noted Assessment: s/p laparotomy x2 with internal hernia repair and enterotomy repair. Plan: Spoke with Dr. Ohara Will change IVF to D5 1/2 NS with 20 meq KCL at a rate of 100cc/hr Drain G-tube of any residual left AXR and TPN labs today Possibly resume TPN/tube feeding pending on labs and xray
[2017-12-18] MEDS ORDERED: Vancomycin Trough Check NOTE FOLLOW UP ONE (11:30)
[2017-12-18] MEDS: D5W 1/2 NS KCl 20 Meq 1000 ML* 1,000 ML IV SCH (12:09)
--- NOTE | 2017-12-18 13:06 | RAD ---
HISTORY: Abdominal pain COMPARISONS: December 12, 2017 VIEWS: Frontal supine and upright views of the abdomen. FINDINGS: BOWEL: There is a nonspecific bowel gas pattern, with nondilated small bowel gas noted. There is a large amount of stool within the colon. There is gaseous distention of the colon. CALCULI: There are no abnormal calculi. BONES AND SOFT TISSUES: There are no osseous abnormalities. OTHER FINDINGS: The lung bases are clear. There is no subphrenic gas. Surgical clips are noted. A surgical drainage catheter is noted. IMPRESSION: NONSPECIFIC BOWEL GAS PATTERN.
[2017-12-18] MEDS ORDERED: Sodium Phosphate ADULT ENEMA* 118 ml bottle PR ONE (13:56)
[2017-12-18] MEDS ORDERED: Ibuprofen ADULT LIQ* 600 MG/30 ML UDC PO PRN (14:02)
--- NOTE | 2017-12-18 14:05 | PN ---
Progress Note - Progress Note Date of Service: 12/18/17 Note: TFs on hold. Lab and AXR reviewed. 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 Try ibuprofen prn pain. Limit Dilaudid.
[2017-12-18] MEDS: QUEtiapine TAB* 100 MG PO SCH (20:23)
[2017-12-19] MEDS: PROCHLORPERAZINE INJ 5 MG/ML 2 ML VIAL IV PRN (00:33)
[2017-12-19] MEDS: Pantoprazole IV* 40 MG IV SCH (02:22)
[2017-12-19] MEDS: D5W 1/2 NS KCl 20 Meq 1000 ML* 1,000 ML IV SCH ×2 (02:32→18:28)
[2017-12-19] MEDS: Vancomycin(*) 1,000 MG in NS 0.9% 250 ML* 250 ML IVPB SCH ×2 (04:08→12:09)
[2017-12-19] MEDS: Heparin VIAL(*) 5000 UNITS/ML VIAL (FIVE THOUSAND) SUBCUT SCH ×3 (05:40→22:06)
[2017-12-19 06:08] LABS: ABS Basophils 0.1 10^3/ul (0-0.2); ABS Eosinophils 0.2 10^3/ul (0-0.6); ABS Lymphocytes 1.8 10^3/ul (1.0-4.8); ABS Neutrophils 5.1 10^3/ul (1.5-7.7); ABS Nucleated RBC 0 10^3/ul; Eosinophil % 2.5 % (0-6); Hematocrit 27 % (35-47); Hemoglobin 8.8 g/dl (12.0-16.0); Lymphocyte % 21.8 % (25-47); Mean Corpuscular HGB Conc 33 g/dl (31-36); Mean Corpuscular Hemoglobin 25 pg (27-31); Mean Corpuscular Volume 76 fL (80-97); Mean Platelet Volume 7 um3 (7.4-10.4); Nucleated Red Blood Cells % 0; Platelet Count 881 10^3/ul (150-450); Red Blood Count 3.51 10^6/ul (4.0-5.4); Red Cell Distribution Width 18 % (10.5-15); White Blood Count 8.2 10^3/ul (3.5-10.8)
[2017-12-19] MEDS: Meropenem 1 GM PREMIX(*) 1 GM/50 ML BAG IV SCH ×3 (06:27→23:07)
--- NOTE | 2017-12-19 08:37 | PN ---
Progress Note - Progress Note Date of Service: 12/19/17 SOAP: Subjective: She has had 2 BMs after enema yesterday and notes abdominal pain is much better. She has no appetite. She has stopped taking narcotics. Objective: Vital Signs Temp 98.0 F 12/19/17 04:33 Pulse 76 12/19/17 04:33 Resp 16 12/19/17 07:17 BP 106/64 12/19/17 04:33 Pulse Ox 97 12/19/17 04:33 NAD Abd: incisions intact; scant serous drainage above umbilicus. Gtube intact with scant drainage. Soft and less tender in RLQ. Intake & Output 12/18/17 12/19/17 12/19/17 18:59 06:59 18:59 Intake Total 1272 1945 Output Total 1200 2860 Balance 72 -915 Weight 123 lb 1.6 oz Intake: IV Fluids 417 1250 ABX - VANCOMYCIN 325 250 D5W 1/2 NS 20 meq KCL 1000 NS (0.9%) 92 IVPB 305 55 ABX - VANCOMYCIN 250 Meropenem 55 55 Oral 550 640 Output: G Tube 60 Urine 1200 2800 Other: Date of Last Bowel 12/18/17 Movement # Bowel Movements 2 Estimated Stool Amount Medium Laboratory Results - last 24 hr 12/18/17 12/18/17 12/19/17 05:30 12:00 05:37 WBC 8.2 RBC 3.51 L Hgb 8.8 L Hct 27 L MCV 76 L MCH 25 L MCHC 33 RDW 18 H Plt Count 881 H D MPV 7 L Neut % (Auto) 62.4 Lymph % (Auto) 21.8 L Potter % (Auto) 12.1 H Eos % (Auto) 2.5 Baso % (Auto) 1.2 Absolute Neuts (auto) 5.1 Absolute Lymphs (auto) 1.8 Absolute Monos (auto) 1.0 H Absolute Eos (auto) 0.2 Absolute Basos (auto) 0.1 Absolute Nucleated RBC 0 Nucleated RBC % 0 Sodium 135 Potassium 4.2 Chloride 100 L Carbon Dioxide 28 Anion Gap 7 BUN 12 Creatinine 0.48 L Est GFR ( Amer) 184.2 Est GFR (Non-Af Amer) 143.2 BUN/Creatinine Ratio 25.0 H Glucose 76 Calcium 8.7 Phosphorus 4.7 Magnesium 2.1 Total Bilirubin 0.30 AST 18 ALT 13 Alkaline Phosphatase 77 Total Protein 6.0 L Albumin 2.6 L Globulin 3.4 Albumin/Globulin Ratio 0.8 L Triglycerides 104 Cholesterol 116 Vancomycin Trough 16.5 Assessment: POD#13 s/p exlap for SBO and repair perf/POD#17 s/p repair internal hernia. SBO with perf and peritonitis on IV abx. Improved. Small abdominal fascial dehiscence with drainage. I do not think that surgical intervention will improve this situation and that she is at low risk of evisceration. Post-op ileus complicated by narcotics. This is improved Malnutrition. Acute on Chronic iron deficiency anemia, Post Bariatric surgery. Plan: Resume TFs. Cont po diet. Cont local wound care. Abx per ID. If she continues to progress she can like be discharged later this week.
[2017-12-19] MEDS: Calcium Citrate TAB* 200 MG PO SCH ×2 (08:38→22:04)
[2017-12-19] MEDS: ARIPiprazole TAB* 2 MG PO SCH (08:38)
[2017-12-19] MEDS: Amphetamine MIXED SALT TAB* 10 MG TAB PO SCH ×2 (08:38→15:01)
[2017-12-19] MEDS: lamoTRIgine TAB(*) 100 MG PO SCH ×2 (08:38→22:03)
[2017-12-19] MEDS: cloNIDine TAB* 0.1 MG PO SCH ×2 (08:39→22:04)
[2017-12-19] MEDS ORDERED: Ferric Gluconate IV* 125 MG in NS 0.9% 100 ML* 100 ML IVPB ONE (09:00)
--- NOTE | 2017-12-19 14:02 | PN ---
Progress Note - Progress Note Date of Service: 12/19/17 SOAP: Subjective: CC: peritonitis HPI: 42 year old woman with hx gastric bypass, admitted with internal hernia which was repaired, back to OR for jejunal leak. Abd pain improved, despite stopping pain medicine. No fever, sweats, or rash. Objective: Vital Signs Temp 36.6 C 12/19/17 11:16 Pulse 98 12/19/17 11:16 Resp 16 12/19/17 11:16 BP 112/59 12/19/17 11:16 Pulse Ox 97 12/19/17 11:16 Intake & Output 12/18/17 12/19/17 12/19/17 18:59 06:59 18:59 Intake Total 1272 1945 340 Output Total 1200 2860 1600 Balance 72 -915 -1260 Weight 123 lb 1.6 oz Intake: IV Fluids 417 1250 ABX - VANCOMYCIN 325 250 D5W 1/2 NS 20 meq KCL 1000 NS (0.9%) 92 IVPB 305 55 55 ABX - VANCOMYCIN 250 Meropenem 55 55 55 Oral 550 640 240 Tube Feeding 30 Tube Feeding Flush Amount 15 Output: G Tube 60 Urine 1200 2800 1600 Tube Feeding Residual 0 Amount Wasted Other: Date of Last Bowel 12/18/17 Movement # Bowel Movements 2 Estimated Stool Amount Medium Gen:awake, no distress HEENT:PERRL, MMM Heart:RRR no murmur Lungs:CTA BL Abd:+BS NTND soft; binder in place Skin: no rash Laboratory Results - last 24 hr 12/19/17 05:37 WBC 8.2 RBC 3.51 L Hgb 8.8 L Hct 27 L MCV 76 L MCH 25 L MCHC 33 RDW 18 H Plt Count 881 H D MPV 7 L Neut % (Auto) 62.4 Lymph % (Auto) 21.8 L Sullivan % (Auto) 12.1 H Eos % (Auto) 2.5 Baso % (Auto) 1.2 Absolute Neuts (auto) 5.1 Absolute Lymphs (auto) 1.8 Absolute Monos (auto) 1.0 H Absolute Eos (auto) 0.2 Absolute Basos (auto) 0.1 Absolute Nucleated RBC 0 Nucleated RBC % 0 Assessment: 1. peritonitis s/p laparotomy ; E.coli/ESBL. Recent ascites while on meropenem ; still growing E.coli, improving 2. TPN 3. s/p internal hernia repair 5. anaphylaxis with pcn, cephalosporin; tolerates meropenem Plan: 1. stop vancomycin (ordered) had 5 days , will stop meropenem 12/20 if continuing to improve
[2017-12-19] MEDS: QUEtiapine TAB* 100 MG PO SCH (22:04)
[2017-12-19] MEDS: HYDROmorphone INJ* 2 MG/ML CARPUJECT SYRINGE IV SLOW PU PRN (22:08)
[2017-12-20] MEDS: Pantoprazole IV* 40 MG IV SCH (02:53)
[2017-12-20] MEDS: Acetaminophen TAB* 325 MG PO PRN (03:01)
[2017-12-20] MEDS: D5W 1/2 NS KCl 20 Meq 1000 ML* 1,000 ML IV SCH ×2 (05:08→16:56)
[2017-12-20] MEDS: Heparin VIAL(*) 5000 UNITS/ML VIAL (FIVE THOUSAND) SUBCUT SCH ×3 (06:19→23:00)
[2017-12-20] MEDS: Meropenem 1 GM PREMIX(*) 1 GM/50 ML BAG IV SCH ×3 (06:38→22:57)
[2017-12-20] MEDS: Amphetamine MIXED SALT TAB* 10 MG TAB PO SCH ×2 (09:07→15:39)
[2017-12-20] MEDS: Calcium Citrate TAB* 200 MG PO SCH ×2 (09:07→22:54)
[2017-12-20] MEDS: lamoTRIgine TAB(*) 100 MG PO SCH ×2 (09:07→22:53)
[2017-12-20] MEDS: cloNIDine TAB* 0.1 MG PO SCH ×2 (09:07→22:52)
[2017-12-20] MEDS: ARIPiprazole TAB* 2 MG PO SCH (09:07)
[2017-12-20] MEDS ORDERED: Alteplase (CATHFLO)* 2 MG VIAL ONE (10:00)
[2017-12-20] MEDS ORDERED: Ibuprofen TAB* 200 MG PO PRN (10:00)
--- NOTE | 2017-12-20 14:03 | PN ---
Progress Note - Progress Note Date of Service: 12/20/17 SOAP: Subjective: Having flatus and stool. Tolerating TF without pain, N/V. Had diet advanced today and tolerating well. Objective: Vital Signs Temp 97.7 F 12/20/17 11:29 Pulse 76 12/20/17 11:29 Resp 16 12/20/17 11:29 BP 109/53 12/20/17 11:29 Pulse Ox 99 12/20/17 11:29 Gen: NAD Abd: incisions clean and intact; no erythema; soft with decr tenderness RLQ. Intake & Output 12/19/17 12/20/17 12/20/17 18:59 06:59 18:59 Intake Total 1965 2204 Output Total 2400 900 585 Balance -435 1304 -585 Weight 123 lb 9.6 oz Intake: IV Fluids 950 1032 D5W 1/2 NS 20 meq KCL 950 980 Meropenem 52 IVPB 385 ABX - VANCOMYCIN 270 Meropenem 115 Oral 585 600 Tube Feeding 30 572 Tube Feeding Flush Amount 15 Output: Urine 2400 900 475 Tube Feeding Residual 0 110 Amount Wasted Other: Date of Last Bowel 12/19/17 Movement Estimated Stool Amount Large Assessment: POD#14 s/p exlap for SBO and repair perf/POD#18 s/p repair internal hernia. SBO with perf and peritonitis on IV abx. Improved and completing IV abx today. Small abdominal fascial dehiscence with drainage. I do not think that surgical intervention will improve this situation and that she is at low risk of evisceration. Post-op ileus complicated by narcotics. This is improved Malnutrition. Likely improving now with incr po and TFs. Acute on Chronic iron deficiency anemia, Post Bariatric surgery. Has completed 3 doses Ferlicit and rec'd txfn x 2 u PRBC this admission. Plan: Change to bolus TF to supplement her po intake. Local wound care with dry dressing tid. If managing ok with TFs then can d/c home tomorrow or Monday. D/C PICC and suzan prior to d/c home. D/w pt and mother.
[2017-12-20] MEDS: QUEtiapine TAB* 100 MG PO SCH (22:53)
[2017-12-20] MEDS: HYDROmorphone INJ* 2 MG/ML CARPUJECT SYRINGE IV SLOW PU PRN (23:02)
[2017-12-21] MEDS: Pantoprazole IV* 40 MG IV SCH (02:23)
[2017-12-21] MEDS: D5W 1/2 NS KCl 20 Meq 1000 ML* 1,000 ML IV SCH (03:06)
[2017-12-21] MEDS: Heparin VIAL(*) 5000 UNITS/ML VIAL (FIVE THOUSAND) SUBCUT SCH ×2 (05:00→14:00)
[2017-12-21] MEDS: Meropenem 1 GM PREMIX(*) 1 GM/50 ML BAG IV SCH (06:39)
[2017-12-21 09:21] VITALS: BP 103/60
[2017-12-21] MEDS: lamoTRIgine TAB(*) 100 MG PO SCH (09:21)
[2017-12-21] MEDS: Amphetamine MIXED SALT TAB* 10 MG TAB PO SCH (09:21)
[2017-12-21] MEDS: ARIPiprazole TAB* 2 MG PO SCH (09:22)
[2017-12-21] MEDS: Calcium Citrate TAB* 200 MG PO SCH (09:22)
[2017-12-21] MEDS: cloNIDine TAB* 0.1 MG PO SCH (09:22)
--- NOTE | 2017-12-21 09:54 | PN ---
Progress Note - Progress Note Date of Service: 12/21/17 SOAP: Subjective: Feeling much better today. Tolerating both tube feeding and PO intake. Denies any pain, nausea or vomiting. Ambulatory. Objective: Awake and alert, walking around, in NAD VSS, afebrile Abdomen soft, NT, ND. [place] has been removed, dressing intact. Assessment: s/p Exploratory laparotomy with repair of internal hernia. Plan: D/C to home today with tube feeding F/U in office next week.
== END 2017-12-21 13:20 | disposition short-term general hospital (02) | DRG 329 ==
LOC: ED 18:09 → OR 12-02 13:20 → SSU 12-02 15:20 → ICU 12-06 02:16 → SSU 12-06 15:20
PROVIDERS: ADMIT Surgery; ATTEND Internal Medicine
PROC: 0WQF0ZZ Repair Abdominal Wall, Open Approach (ICD-10-PCS; 2017-12-02)
PROC: 0WJF4ZZ Inspection of Abdominal Wall, Percutaneous Endoscopic Approach (ICD-10-PCS; 2017-12-02)
PROC: 0DQA0ZZ Repair Jejunum, Open Approach (ICD-10-PCS; principal; 2017-12-06)
PROC: 0D160Z4 Bypass Stomach to Cutaneous, Open Approach (ICD-10-PCS; 2017-12-06)
PROC: 30233N1 Transfusion of Nonautologous Red Blood Cells into Peripheral Vein, Percutaneous Approach (ICD-10-PCS; 2017-12-06)
PROC: 3E0336Z Introduction of Nutritional Substance into Peripheral Vein, Percutaneous Approach (ICD-10-PCS; 2017-12-07)
PROC: 02HV33Z Insertion of Infusion Device into Superior Vena Cava, Percutaneous Approach (ICD-10-PCS; 2017-12-07)
PROC: 0W9G3ZX Drainage of Peritoneal Cavity, Percutaneous Approach, Diagnostic (ICD-10-PCS; 2017-12-13)
PROC: 0DH67UZ Insertion of Feeding Device into Stomach, Via Natural or Artificial Opening (ICD-10-PCS; 2017-12-14)
PROC: 0DP6XUZ Removal of Feeding Device from Stomach, External Approach (ICD-10-PCS; 2017-12-17)
DX: K56.50 Intestinal adhesions [bands], unspecified as to partial versus complete obstruction (principal); K63.1 Perforation of intestine (nontraumatic); A41.9 Sepsis, unspecified organism; K55.9 Vascular disorder of intestine, unspecified; J90 Pleural effusion, not elsewhere classified; E46 Unspecified protein-calorie malnutrition; K65.9 Peritonitis, unspecified; R18.8 Other ascites; N39.0 Urinary tract infection, site not specified; T81.32XA Disruption of internal operation (surgical) wound, not elsewhere classified, initial encounter; E83.42 Hypomagnesemia; K56.7 Ileus, unspecified; F31.9 Bipolar disorder, unspecified; I10 Essential (primary) hypertension; K21.9 Gastro-esophageal reflux disease without esophagitis; F41.9 Anxiety disorder, unspecified; F90.9 Attention-deficit hyperactivity disorder, unspecified type; D63.8 Anemia in other chronic diseases classified elsewhere; B96.20 Unspecified Escherichia coli [E. coli] as the cause of diseases classified elsewhere; Z16.23 Resistance to quinolones and fluoroquinolones; E66.9 Obesity, unspecified; E87.6 Hypokalemia; K59.00 Constipation, unspecified; N20.0 Calculus of kidney; K43.9 Ventral hernia without obstruction or gangrene; D50.8 Other iron deficiency anemias; Y83.2 Surgical operation with anastomosis, bypass or graft as the cause of abnormal reaction of the patient, or of later complication, without mention of misadventure at the time of the procedure; Y92.239 Unspecified place in hospital as the place of occurrence of the external cause; K64.9 Unspecified hemorrhoids; Z88.1 Allergy status to other antibiotic agents; Z88.0 Allergy status to penicillin; Z87.442 Personal history of urinary calculi; Z82.49 Family history of ischemic heart disease and other diseases of the circulatory system; Z72.89 Other problems related to lifestyle; Z98.84 Bariatric surgery status; Z90.49 Acquired absence of other specified parts of digestive tract; Z68.24 Body mass index [BMI] 24.0-24.9, adult
CPT/HCPCS: 36415; 36600; 71046; 74018; 74019; 74176; 74177; 76775; 80048; 80053; 80202; 81003; 81015; 82150; 82465; 82565; 82803; 83605; 83690; 83735; 84100; 84134; 84439; 84443; 84478; 84481; 84520; 84702; 85025; 85027; 85060; 85610; 85730; 86140; 86850; 86900; 86901; 86922; 87040; 87070; 87077; 87086; 87106; 87184; 87186; 87205; 87641; 93005; 93306; 96374; 96375; 99284; A9270-GY; J0330; J0610; J0744; J0780; J1100; J1170; J1240; J1580; J1644; J1885; J1940; J2060; J2185; J2250; J2270; J2405; J2704; J2916; J2997; J3010; J3370; J3475; J3480; J3490; P9016; P9040; Q9967

== ENCOUNTER 2017-12-27 13:21 | Emergency (ER) | payer MEDICARE, MEDICAID ==
[2017-12-27] MEDS ORDERED: NS 0.9% 1000 ML* 1,000 ML IV ONE (13:56)
[2017-12-27] MEDS ORDERED: Ondansetron INJ* 2 MG/ML VIAL IV ONE (13:59)
[2017-12-27] MEDS ORDERED: Morphine INJ* 2 MG/ML 1 ML SYRINGE (TWO MG - NEW SYRINGE VERSION) IV PRN (13:59)
[2017-12-27] MEDS ORDERED: Morphine INJ* 2 MG/ML 1 ML CARPUJECT IV ONE (14:08)
[2017-12-27] MEDS ORDERED: Morphine INJ* 2 MG/ML 1 ML CARPUJECT ONE (14:11)
[2017-12-27 14:20] LABS: ABS Basophils 0.1 10^3/ul (0-0.2); ABS Eosinophils 0.2 10^3/ul (0-0.6); ABS Lymphocytes 2.3 10^3/ul (1.0-4.8); ABS Monocytes 0.8 10^3/ul (0-0.8); ABS Neutrophils 3.9 10^3/ul (1.5-7.7); ABS Nucleated RBC 0 10^3/ul; Eosinophil % 2.8 % (0-6); Hematocrit 36 % (35-47); Hemoglobin 11.6 g/dl (12.0-16.0); Lymphocyte % 31.4 % (25-47); Mean Corpuscular HGB Conc 32 g/dl (31-36); Mean Corpuscular Hemoglobin 25 pg (27-31); Mean Corpuscular Volume 78 fL (80-97); Mean Platelet Volume 7 um3 (7.4-10.4); Nucleated Red Blood Cells % 0; Platelet Count 396 10^3/ul (150-450); Red Cell Distribution Width 20 % (10.5-15); White Blood Count 7.4 10^3/ul (3.5-10.8)
[2017-12-27 14:26] LABS: EGFR Non-African American 127.8 (>60)
--- NOTE | 2017-12-27 14:51 | RAD ---
Indication: History of postop peritonitis. Assess sub midline incision collection. Comparison: December 13, 2017 CT. Technique: Ultrasound of the midline abdominal incision site. Cine loops obtained. Report: Corresponding with the site of the complex ascites extending through the infraumbilical midline anterior abdominal wall musculature into the subcutaneous tissue plane subjacent to the dermal incision site there is a complex fluid collection measuring up to 4.3 cm transverse by 6.6 cm cephalocaudal by 1.8 cm AP which communicates through an approximate 1.8 cm fascia defect with similar complex ascites deep to the fascia defect. The morphology and volume of fluid extending into the subcutaneous tissue plane appears similar to the December 13, 2017 CT. No echogenic foci within the collection to suggest presence of gas within the collection. IMPRESSION: Ventral incisional hernia with communication of complex ascites to the subcutaneous tissue plane similar to the prior CT. Results discussed with Dr. Ohara 12/27/2017 2:47 PM EST
--- NOTE | 2017-12-27 15:09 | RAD ---
HISTORY: Abdominal pain COMPARISONS: December 18, 2017 VIEWS: Frontal views of the abdomen. FINDINGS: BOWEL: There is a nonspecific bowel gas pattern, with nondilated small bowel gas noted. There is mild gaseous distention of the distal colon. CALCULI: There are no abnormal calculi. BONES AND SOFT TISSUES: There are no osseous abnormalities. OTHER FINDINGS: The lung bases are clear. There is no subphrenic gas. A surgical drain is noted. There is postsurgical change to left upper quadrant. IMPRESSION: NONSPECIFIC BOWEL GAS PATTERN.
--- NOTE | 2017-12-27 16:00 | ED ---
Adis Zuniga Julia, scribed for Turner Sharp MD on 12/27/17 at 1420 . Abdominal Pain/Female - HPI Summary HPI Summary: This patient is a 42 year old F presenting to [facility] accompanied by with a chief complaint of sudden sensation of opening of hernia repair since this morning. Patient reports abdominal pain since last night , chills, and passing gas rectally. Patient denies vomiting. The patient rates the pain 9/10 in severity. Symptoms alleviated by sitting upright. Pt had hernia repair on and another abdominal surgery for internal hernia secondary to prior surgery 12/05/17. - History of Current Complaint Chief Complaint: EDAbdPain Stated Complaint: POSSIBLE HERNIA Time Seen by Provider: 12/27/17 13:34 Hx Obtained From: Patient Onset/Duration: Lasting Weeks, Still Present Timing: Constant Pain Intensity: 9 Pain Scale Used: 0-10 Numeric Location: Diffuse, Other - along incision Alleviating Factor(s): Position - sittingu p Associated Signs and Symptoms: Positive: Other: - , chills, and passing gas rectally Allergies/Adverse Reactions: Allergies Allergy/AdvReac Type Severity Reaction Status Date / Time MS Penicillin G Allergy Severe Anaphylatic Verified 10/28/15 06:24 [Penicillin G] Shock MS Cephalexin [From Keflex] Allergy Unknown Unknown Verified 10/28/15 06:24 Reaction Details MS Penicillins [PCN] Allergy Unknown Verified 11/01/15 10:40 Reaction Details PMH/Surg Hx/FS Hx/Imm Hx Endocrine/Hematology History: Denies: Hx Diabetes Cardiovascular History: Denies: Hx Hypertension, Hx Pacemaker/ICD Respiratory History: Denies: Hx Asthma GI History: Reports: Hx Gastroesophageal Reflux Disease, Hx Hiatal Hernia, Hx Obstructive Bowel, Other GI Disorders - RECENTLY TREATED FOR H PYLORI-09/2015 History: Reports: Hx Kidney Stones Denies: Hx Dialysis, Hx Renal Disease Sensory History: Reports: Hx Contacts or Glasses Denies: Hx Hearing Aid Opthamlomology History: Reports: Hx Contacts or Glasses Neurological History: Reports: Other Neuro Impairments/Disorders - BIPOLAR Psychiatric History: Reports: Hx Anxiety, Hx Attention Deficit Hyperactivity Disorder, Hx Depression, Hx Bipolar Disorder, Other Psychiatric Issues/ Disorders - bipolar Denies: Hx Panic Disorder - Surgical History Surgery Procedure, Year, and Place: GASTRIC BYPASS 10/28/15, TUBES TIED, JOHN, HERNIA REPAIR, laporotomy. Hernia repair and SBO 12/02/17 and 12/05/17 Hx Anesthesia Reactions: No - Immunization History Date of Tetanus Vaccine: UTD per pt Infectious Disease History: No Infectious Disease History: Denies: Traveled Outside the [place] in Last 30 Days - Family History Known Family History: Positive: Hypertension Negative: Cardiac Disease - Social History Alcohol Use: Rare Substance Use Type: Reports: None Smoking Status (MU): Never Smoked Tobacco Review of Systems Positive: Chills Gastrointestinal: Other - Hernia sensation Positive: Abdominal Pain, Other. Negative: Vomiting All Other Systems Reviewed And Are Negative: Yes Physical Exam - Summary Physical Exam Summary: Appearance: Well-appearing, Well-nourished Skin: Warm, Dry, No rash Eyes: Normal, PERRL, EOMI, sclera anicteric ENT: Normal Neck: Supple, nontender Respiratory: Clear to auscultation Cardiovascular: S1, S2, no murmur, no rub, no gallop Abdomen: Soft,, no organomegaly, tender incision with induration no drainage, palpable mass Bowel sounds: Present Musculoskeletal: Normal, Strength/ROM Intact, no edema, pulses symmetrical Neurological: Normal, A&Ox3, cranial nerves II-XII WNL, follows commands, gait not tested, sensation intact to pin and light touch Psychiatric: affect normal, behavior appropriate, dressed appropriately, judgment intact Triage Information Reviewed: Yes Vital Signs On Initial Exam: Initial Vitals Temp Pulse Resp BP Pulse Ox 99.3 F 110 20 126/68 98 12/27/17 13:22 12/27/17 13:22 12/27/17 13:22 12/27/17 13:22 12/27/17 13:22 Vital Signs Reviewed: Yes Diagnostics - Vital Signs Vital Signs Temp Pulse Resp BP Pulse Ox 12/27/17 13:22 99.3 F 110 20 126/68 98 - Laboratory Result Diagrams: 12/27/17 14:05 12/27/17 14:05 Lab Statement: Any lab studies that have been ordered have been reviewed, and results considered in the medical decision making process. - Radiology Abdomen XR Radiology Interpretation Completed By: ED Physician - No acute concern. - Additional Comments Diagnostic Additional Comments: Abdomen US reveals: Ventral incisional hernia with communication of complex ascites to the subcutaneous tissue plane similar to the prior CT. Results discussed with Dr. Ohara 12/27/2017 2:47 PM EST. ED Physician has reviewed this result. Abdominal Pain Fem Course/Dx - Course Course Of Treatment: Patient presents with abdominal pain with sensation of "opening" at previous hernia. Patient had hernia repair on 12/02/17 and subsequent laproatomy on 12/05/[address] Ohara states patient had SBO post operatively,and has dehscenc of the the wound. He recomends pain medication, US and XR. Abdomen US is acutely negative with typical post operative fluid. Patient was given Morphine for pain and Zofran. - Diagnoses Provider Diagnoses: Wound dehiscence - Provider Notifications Discussed Care Of Patient With: John Ohara - surgeon Time Discussed With Above Provider: 13:42 Instructed by Provider To: MD Will See In ED - recomend US and XR, states pt has SBO post operation Discharge - Discharge Plan Condition: Fair Disposition: HOME Prescriptions: Ascorbic Acid [Vitamin C] 1 chw PO DAILY #30 tab.chew MDD 1 Patient Education Materials: Wound Dehiscence (ED) Referrals: Bre Boyer, NATURAL GAS ENGINEER [Primary Care Provider] - The documentation as recorded by the Adis vergara Julia accurately reflects the service I personally performed and the decisions made by , Turner Sharp MD.
[2017-12-27 16:52] VITALS: BP 100/58
--- NOTE | 2017-12-27 20:03 | CONS ---
CC: Bre Boyer NP * CONSULTATION REPORT: DATE OF CONSULT: 12/27/17 - EMERGENCY DEPT REASON FOR CONSULTATION: Lower abdominal pain. HISTORY OF PRESENT ILLNESS: This 42-year-old female is presented to the [facility] Emergency Room because of lower abdominal pain, having been referred in by her visiting nurse. The patient is recently status post laparotomy for small bowel obstruction, status post laparotomy for reduction repair of internal hernia. At her second laparotomy, she was also found to have a pinhole enterotomy in the jejunum and she had been hospitalized from until 12/21/17 due to these issues. Her course since her discharge was notable for toleration of tube feeds, but she was having a little abdominal pain intermittently that was more severe last night and then severe again this morning after she got out of the shower. She had a tender bulge in the lower abdomen in the area of a known hernia and therefore, she was sent to the emergency room for evaluation with concern for possible incarcerated hernia. She has had no nausea or vomiting. No fevers or chills. She has been having loose stools today. PAST MEDICAL HISTORY: Significant for bipolar disorder, ADHD. PAST SURGICAL HISTORY: The above-mentioned surgeries as well as a laparoscopic Cm-en-Y gastric bypass in October 2015. MEDICATIONS: 1. Lamictal. 2. Clonidine. 3. Multivitamin. 4. Seroquel. 5. Calcium carbonate. 6. Vitamin B12. 7. Adderall. 8. Abilify. 9. BuSpar. ALLERGIES: PENICILLIN has caused anaphylactic shock, KEFLEX has caused throat swelling. SOCIAL HISTORY: She is . She lives with her and children. No tobacco, rare alcohol use. No drug use. PHYSICAL EXAMINATION: She is 5 feet 1 inch tall, she weighs 116 pounds. Her temperature is 99.3, her blood pressure is 113/64, pulse is 78, respirations are 14, and her O2 sat is 100% on room air. She is in general no acute distress. Her head is normocephalic and atraumatic. Her sclerae anicteric and mucous membranes moist. There is no otorrhea, no rhinorrhea. Neck is symmetrical. Abdomen has well-healed scars. Gastrostomy tube is in place in the left upper quadrant. Abdomen is soft with some tenderness in the lower abdomen in the area of the lower midline where there is palpable subcutaneous mass. DIAGNOSTIC STUDIES/LAB DATA: Her WBC is 7.4 with normal differential. Chemistries are normal with CRP of 1.55. Abdominal x-ray reveals gas within the colon, no evidence of air-fluid levels. Ultrasound of the abdomen limited to the area of the palpable mass and lower abdomen reveals small ventral/ incisional hernia with complex ascites. No evidence of bowel within the hernia. IMPRESSION: This is a 42-year-old female recently status post laparotomy for small bowel obstruction with repair of enterotomy and status post laparotomy for reduction and repair of an internal hernia, status post gastric bypass. She has a lower midline hernia, which is small and this communicates with intraperitoneal fluid and there is no evidence for any incarceration. PLAN/RECOMMENDATION: I discussed the findings with Dr. Sharp in the emergency room. The patient is not need of any surgical intervention. She can follow up in the [facility] office as an outpatient. [id number]/CPS #: [id number] MTDD
== END 2017-12-27 16:30 | disposition home or self-care (01) ==
LOC: ED 13:21
DX: T81.30XA Disruption of wound, unspecified, initial encounter (principal); R10.9 Unspecified abdominal pain; Z87.19 Personal history of other diseases of the digestive system; Z88.0 Allergy status to penicillin
CPT/HCPCS: 36415; 74019; 76705; 80053; 85025; 86140; 96374; 96375; 99283; J2270; J2405

== ENCOUNTER 2018-01-28 19:01 | Inpatient (IN) | payer MEDICARE, MEDICAID ==
--- OUTSIDE RECORDS SUMMARY | 2018-01-28 19:21 | XMS REPORT ---
:1975 External Reference #:[id number] Author Organization [facility] Address [address] [address] Phone [phone] Care Team Providers Name Role Phone Bre Boyer NP Primary Care Physician Unavailable Payers Type Date Identification Numbers Payment Provider Subscriber Medicare Primary Effective: Policy Number: Medicare Ramses Strickland 2002 [id number] Zachary PayID: [id number] [address] [place] [address] [facility] Part [facility] Policy Number: [id number] Medicaid Ramses Sharma Group Name: 1 [address] PayID: [id number] [place] [address] Problems Description No Information Family History Date Family Member(s) Problem(s) Comments General Heart Disease General Cancer Social History Type Date Description Comments Marital Status Lives With ETOH Use Denies alcohol use Smoking Patient has never smoked Exercise Type/Frequency Exercises regularly Allergies, Adverse Reactions, Alerts Date Description Reaction Status Severity Comments 06/02/2014 Penicillins active 06/02/2014 Keflex active Medications Medication Date Status Form Strength Qnty SIG Indications Ordering Provider Osmolite 1.2 12/27/ Active Liquid 568OzC 240 ml by John Kelley 2017 ans g-tube four Mecenas, times a day , FACS Iron Up 06/05/ Active Liquid 15mg/0.5ML 1units qty: 1 Z98.84 Alejandro Sainz bottle 3ml MD Gutierrez PO twice daily Amphetamine-Dex 00/00/ Active Tablets 20mg Take One Unknown troamphetamine 0000 Tablet By Mouth Twice A Day Maximum Daily Dose 2 Clonidine HCL / Active Tablets 0.1mg Take One Unknown 0000 Tablet By Mouth Twice A Day For Anxiety And Agitation Buspirone HCL / Active Tablets 10mg Take One Unknown 0000 Tablet By Mouth Three Times A Day Lamotrigine / Active Tablets 150mg Take One Unknown 0000 Tablet By Mouth Twice A Day Quetiapine / Active Tablets 300mg Take One Unknown Fumarate 0000 Tablet By Mouth Every Night Vitamin B-12 / Active Tablets 100mcg 1 by mouth Unknown 0000 every day Biotin / Active Tablets 1 tablet Unknown 0000 every other day Calcium 600 / Active Tablets 1 by mouth Unknown 0000 every day Multivitamins / Active 1 by mouth Unknown 0000 every day Vitamin C / Active Tablets 1 by mouth Unknown 0000 ER every day Finley 06/02/ Hx Tablets 5-325mg 40tabs 1-2 tab by Dirk 2014 mouth bid Rayray, as needed M.D. pain Lamictal XR / Hx Unknown 0000 Adderall 00/ Hx Unknown 0000 Vital Signs Date Vital Result Comment 01/03/2018 Height 60 inches 5'0" Weight 113.00 lb Heart Rate 68 /min BP Systolic 110 mmHg BP Diastolic 70 mmHg Respiratory Rate 16 /min Body Temperature 97.8 F BMI (Body Mass Index) 22.1 kg/m2 06/05/2017 Height 60 inches 5'0" Weight 120.00 lb Heart Rate 76 /min BP Systolic 116 mmHg BP Diastolic 70 mmHg Respiratory Rate 16 /min Body Temperature 98.2 F BMI (Body Mass Index) 23.4 kg/m2 06/02/2014 Height 60 inches 5'0" Weight 220.00 lb Heart Rate 66 /min BP Systolic 137 mmHg BP Diastolic 92 mmHg BMI (Body Mass Index) 43.0 kg/m2 Results Test Date Test Result H/L Range Note CBC No Diff 11/22/2017 White Blood Count 5.1 10^3/uL 3.5-10.8 Red Blood Count 3.89 10^6/uL Low 4.0-5.4 Hemoglobin 9.4 g/dL Low 12.0-16.0 Hematocrit 29 % Low 35-47 Mean Corpuscular Volume 76 fL Low 80-97 Mean Corpuscular Hemoglobin 24 pg Low 27-31 Mean Corpuscular HGB Conc 32 g/dL 31-36 Red Cell Distribution Width 15 % 10.5-15 Platelet Count 302 10^3/uL 150-450 Mean Platelet Volume 8 um3 7.4-10.4 Iron & Iron Binding Capacity 11/22/2017 Iron 17 g/dL Low 50-212 Unsaturated Iron Binding 491 g/dL Total Iron Binding Capacity 508 g/dL High 250-450 % Iron Saturation 3 % Low 15-55 Bariatric Panel Post Op 06/06/2017 Ferritin < 10.0 ng/mL Low 11-307 Vitamin B12 993 pg/mL High 180-914 1 Folic Acid (Folate) > 20.00 ng/mL >3.99 Vitamin D Total 25(Oh) 40.2 ng/mL 30-50 Vitamin B1 (Whole Blood) 88 nmol/L 70-180 2 Vitamin E Level 6.9 mg/L 5.5 - 17.0 3 Comp Metabolic Panel 06/06/2017 Sodium 136 mmol/L 133-145 Potassium 3.8 mmol/L 3.5-5.0 Chloride 103 mmol/L 101-111 Co2 Carbon Dioxide 26 mmol/L 22-32 Anion Gap 7 mmol/L 2-11 Glucose 77 mg/dL 70-100 Blood Urea Nitrogen 11 mg/dL 6-24 Creatinine 0.51 mg/dL 0.51-0.95 BUN/Creatinine Ratio 21.6 High 8-20 Calcium 8.9 mg/dL 8.6-10.3 Total Protein 6.5 g/dL 6.4-8.9 Albumin 3.8 g/dL 3.2-5.2 Globulin 2.7 g/dL 2-4 Albumin/Globulin Ratio 1.4 1-3 Total Bilirubin 0.50 mg/dL 0.2-1.0 Alkaline Phosphatase 93 U/L 34-104 Alt 12 U/L 7-52 Ast 14 U/L 13-39 Egfr Non- 133.6 >60 Egfr 171.8 >60 4 CBC Auto Diff 06/06/2017 White Blood Count 5.5 10^3/uL 3.5-10.8 Red Blood Count 4.16 10^6/uL 4.0-5.4 Hemoglobin 10.5 g/dL Low 12.0-16.0 Hematocrit 33 % Low 35-47 Mean Corpuscular Volume 80 fL 80-97 Mean Corpuscular Hemoglobin 25 pg Low 27-31 Mean Corpuscular HGB Conc 32 g/dL 31-36 Red Cell Distribution Width 17 % High 10.5-15 Platelet Count 223 10^3/uL 150-450 Mean Platelet Volume 8 um3 7.4-10.4 Abs Neutrophils 2.7 10^3/uL 1.5-7.7 Abs Lymphocytes 2.1 10^3/uL 1.0-4.8 Abs Monocytes 0.6 10^3/uL 0-0.8 Abs Eosinophils 0.1 10^3/uL 0-0.6 Abs Basophils 0 10^3/uL 0-0.2 Abs Nucleated RBC 0 10^3/uL Granulocyte % 49.7 % 38-83 Lymphocyte % 37.4 % 25-47 Monocyte % 10.6 % High 1-9 Eosinophil % 1.7 % 0-6 Basophil % 0.6 % 0-2 Nucleated Red Blood Cells % 0.1 Iron & Iron Binding Capacity 06/06/2017 Iron 47 g/dL Low 50-212 Unsaturated Iron Binding 433 g/dL Total Iron Binding Capacity 480 g/dL High 250-450 % Iron Saturation 10 % Low 15-55 1 Normal Range 180 to 914 Indeterminate Range 145 to 180 Deficient Range <145 2 ADDITIONAL INFORMATION This test was developed and its performance characteristics determined by [facility] in a manner consistent with CLIA requirements. This test has not been cleared or approved by the U.S. Food and Drug Administration. Test Performed by: [facility] - [address] [address] ADDITIONAL INFORMATION This test was developed and its performance characteristics determined by [facility] in a manner consistent with CLIA requirements. This test has not been cleared or approved by the U.S. Food and Drug Administration. Test Performed by: [facility] - [address] [address] 4 Because ethnic data is not always readily available, this report includes an eGFR for both -Americans and non- Americans. The National Kidney Disease Education Program (NKDEP) does not endorse the use of the MDRD equation for patients that are not between the ages of 18 and 70, are , have extremes of body size, muscle mass, or nutritional status, or are non- or non-. According to the National Kidney Foundation, irrespective of diagnosis, the stage of the disease is based on the level of kidney function: Stage Description GFR(mL/min/1.73 m(2)) 1 Kidney damage with normal or decreased GFR 90 2 Kidney damage with mild decrease in GFR 60-89 3 Moderate decrease in GFR 30-59 4 Severe decrease in GFR 15-29 5 Kidney failure <15 (or dialysis) Procedures Date CPT Code Description Status 12/13/2017 69870 ECHO Transthorasic Realtime 2D W Doppler & Color Completed Flow Hosp 10/19/2015 47442 EKG, Interpretation Only Completed Encounters Type Date Location Provider CPT E/M Dx Office Visit 12/19/2017 [facility] Aidee Rodriguez, [address]205 K65.9 12:35p Infectious Diseases Fuentes R18.8 B96.20 Z16.12 Office Visit 12/17/2017 8:52a [facility],nico Blunt, [address]01 D50.8 Hospitalists M.D. Z98.84 A41.51 K56.609 Office Visit 12/16/2017 8:50a [facility],nico Blunt, 28742 D50.8 Hospitalists M.DMike Z98.84 A41.51 K56.609 Office Visit 12/15/2017 8[facility] [place] [address] D50.8 Hospitalists Z98.84 A41.51 Office Visit 12/15/2017 11:12a [facility] Aidee Uribe [address]7782 K65.9 Infectious Vicky Rodriguez M.D. Office Visit [facility]2017 [facility] [place] [address] D50.8 Hospitalists Z98.84 A41.51 Office Visit 12/13/2017 8:46a [facility] [place] [address] D50.8 Hospitalists Z98.84 A41.51 Office Visit 12/12/2017 8:41a [facility], [place] [address] A41.51 Hospitalists K56.609 Z98.84 D50.8 Office Visit 12/11/2017 10:12a [facility] Aidee Uribe [address]3947 K65.9 Infectious Diseases Fuentes Rodriguez Office Visit 12/11/2017 8:40a [facility] [place] [address] A41.51 Assoc, Hospitalists K56.609 Z98.84 D50.8 Office Visit 12/10/2017 8:39a [facility], [place] [address] A41.51 Hospitalists K56.609 N12 D50.8 Office Visit 12/09/2017 8:34a [facility], [place] [address] A41.51 Hospitalists K56.609 N12 D50.8 Office Visit 12/08/2017 1:47p [facility] Aidee Uribe [address]644 K65.9 Infectious Diseases Fuentes Rodriguez Office Visit 12/08/2017 3:24p [facility] [place] [address] K56.609 Assoc, Hospitalists D50.8 A41.51 Z98.84 Office Visit 12/07/2017 1:41p [facility] Aidee Rodriguez, [address]77[address] K65.9 Infectious Vicky Dill Z98.84 Office Visit 12/07/2017 3:23p [facility], [place] [address] K56.609 Hospitalists D50.8 A41.51 Office Visit 12/06/2017 3:22p [facility] Alan Ruiz [address] K56.609 Hospitalists [place] D50.8 A41.51 Z98.84 Office Visit 12/05/2017 3:20p [facility], YINA Zavala [address] N12 Hospitalists D50.8 A41.51 K56.609 Office Visit 12/02/2017 7:00a [facility] [place] [address] R10.84 [employer]er R11.2 R19.7 Z98.84 Office Visit 06/05/2017 11:00a [facility] [place] [address] Z98.84 [facility] Office Visit 07/03/2015 11:12a [facility] Rosa Mccarty, ALEXYS [address]99 724.5 Assoc,pc Hospitalists 789.09 592.0 780.96 Office Visit 07/02/2015 11:11a [facility], [place] [address] 592.0 Hospitalists 789.09 780.96 Office Visit 06/02/2014 1:00p [facility] [place], [address]324 923.20 C.M.A. RPA-C Plan of Care Future Appointment(s):01/15/2018 9:45 am - John Ohara MD, FACS at [facility]01/03/2018 - John Ohara MD, FACSK65.9 Peritonitis, unspecified
--- OUTSIDE RECORDS SUMMARY | 2018-01-28 19:21 | XMS REPORT ---
:1975 External Reference #:[id number] Author Organization [facility] Address [address] [address] Phone [phone] Care Team Providers Name Role Phone Bre Boyer NP Primary Care Physician Unavailable Payers Type Date Identification Numbers Payment Provider Subscriber Medicare Primary Effective: Policy Number: Medicare Ramses Strickland 2002 [id number] Zachary PayID: [id number] [address] [place] [address] [facility] Policy Number: [id number] Medicaid Ramses Sharma Group Name: 1 1 [address] PayID: [id number] [place] [address] Problems Description No Information Family History Date [...] Form Strength Qnty SIG Indications Ordering Provider Elroy-Olson 01/15/ Active Misc 18FR Kit 1units use as Low-Profile 2018 directed Mecenamarkos, Gastrostomy low profile , FACS Feeding Tube button elroy Kit/18FRX3.75CM olson Amphetamine-Dex 00/00/ Active Tablets 20mg Take One Unknown troamphetamine 0000 Tablet By Mouth Twice A Day Maximum Daily Dose 2 Clonidine HCL // Active Tablets 0.1mg Take One Unknown 0000 Tablet By Mouth Twice A Day For Anxiety And Agitation Buspirone HCL // Active Tablets 10mg Take One Unknown 0000 Tablet By Mouth Three Times A Day Lamotrigine 00/ Active Tablets 150mg Take One Unknown 0000 Tablet By Mouth Twice A Day Quetiapine / Active Tablets 300mg Take One Unknown Fumarate 0000 Tablet By Mouth Every Night Vitamin B-12 00/ Active Tablets 100mcg 1 by mouth Unknown 0000 every day Biotin 0000/ Active Tablets 1 tablet Unknown 0000 every other day Calcium 600 0000/ Active Tablets 1 by mouth Unknown 0000 every day Multivitamins / Active 1 by mouth Unknown 0000 every day Vitamin C / Active Tablets 1 by mouth Unknown 0000 ER every day Osmolite 1.2 12/27/ Hx Liquid 568OzC 240 ml by John Kelley 2018 ans g-tube four Mecenas, times a day , FACS Iron Up 06/05/ Hx Liquid 15mg/0.5ML 1units qty: 1 Z98.84 Alejandro Stover 2017 bottle 3ml MD Gutierrez PO twice daily [place] 06/02/ Hx Tablets 5-325mg 40tabs 1-2 tab by Nelson 2014 mouth bid Rayray, as needed M.D. pain Lamictal XR / Hx Unknown 0000 Adderall / Hx Unknown 0000 Vital Signs Date Vital Result Comment 01/15/2018 Height 60 inches 5'0" Weight 114.00 lb Heart Rate 68 /min BP Systolic 100 mmHg BP Diastolic 66 mmHg Respiratory Rate 16 /min Body Temperature 96.6 F BMI (Body Mass Index) 22.3 kg/m2 01/03/2018 Height 60 inches 5'0" Weight 113.00 [...] Test Date Test Result H/L Range Note Comp Metabolic Panel 01/12/2018 Sodium 138 mmol/L 133-145 Potassium 3.6 mmol/L 3.5-5.0 Chloride 108 mmol/L 101-111 Co2 Carbon Dioxide 25 mmol/L 22-32 Anion Gap 5 mmol/L 2-11 Glucose 83 mg/dL 70-100 Blood Urea Nitrogen 9 mg/dL 6-24 Creatinine 0.59 mg/dL 0.51-0.95 BUN/Creatinine Ratio 15.3 8-20 Calcium 9.0 mg/dL 8.6-10.3 Total Protein 7.1 g/dL 6.4-8.9 Albumin 3.9 g/dL 3.2-5.2 Globulin 3.2 g/dL 2-4 Albumin/Globulin Ratio 1.2 1-3 Total Bilirubin 0.40 mg/dL 0.2-1.0 Alkaline Phosphatase 77 U/L 34-104 Alt 26 U/L 7-52 Ast 23 U/L 13-39 Egfr Non- 112.9 >60 Egfr 145.2 >60 1 Laboratory test finding 01/12/2018 Magnesium 2.0 mg/dL 1.9-2.7 Iron & Iron Binding Capacity 01/12/2018 Iron 79 g/dL 50-212 Unsaturated Iron Binding 229 g/dL Total Iron Binding Capacity 308 g/dL 250-450 % Iron Saturation 26 % 15-55 Laboratory test finding 01/12/2018 Ferritin 89.6 ng/mL 11-307 Vitamin D Total 25(Oh) 40.8 ng/mL 20-50 CBC No Diff 11/22/2017 White Blood Count [...] 11-307 Vitamin B12 993 pg/mL High 180-914 2 Folic Acid (Folate) > 20.00 ng/mL >3.99 Vitamin D Total 25(Oh) 40.2 ng/mL 30-50 Vitamin B1 (Whole Blood) 88 nmol/L 70-180 3 Vitamin E Level 6.9 mg/L 5.5 - 17.0 4 Comp Metabolic Panel 06/06/2017 Sodium 136 mmol/L [...] Egfr Non- 133.6 >60 Egfr 171.8 >60 5 CBC Auto Diff 06/06/2017 White Blood Count [...] Iron Saturation 10 % Low 15-55 1 Because ethnic data is not always readily [...] 15-29 5 Kidney failure <15 (or dialysis) 2 Normal Range 180 to 914 Indeterminate Range 145 to 180 Deficient Range <145 3 ADDITIONAL INFORMATION This test was developed and its performance characteristics determined by [facility] in a manner consistent with CLIA requirements. This test has not been cleared or approved by the U.S. Food and Drug Administration. Test Performed by: [facility] - [address] [address] 4 ADDITIONAL INFORMATION This test was developed and its performance characteristics determined by [facility] in a manner consistent with CLIA requirements. This test has not been cleared or approved by the U.S. Food and Drug Administration. Test Performed by: [address] [address] 5 Because ethnic data is not always readily [...] dialysis) Procedures Date CPT Code Description Status 01/03/2018 03911 Chemical Cautery Granulation Tissue Completed 12/13/2017 20293 ECHO Transthorasic Realtime 2D W Doppler & Color Completed Flow Hosp 10/19/2015 47363 EKG, Interpretation Only Completed Encounters Type Date Location Provider CPT E/M Dx Office Visit 12/19/2017 [facility] Keyur Rodriguez, [address] K65.9 12:35p Infectious Diseases M.Jojo R18.8 B96.20 Z16.12 Office Visit 12/17/2017 8:52a [facility],nico Blunt, [address] D50.8 Hospitalists M.DMike Z98.84 A41.51 K56.609 Office Visit 12/16/2017 8:50a [facility],nico lBunt, [address] D50.8 Hospitalists MRob Z98.84 A41.51 K56.609 Office Visit 12/15/2017 8:49a [facility], [place] [address] D50.8 Hospitalists Z98.84 A41.51 Office Visit 12/15/2017 11:12a [facility] Aidee Uribe [address] K65.9 Infectious Diseases Fuentes Rodriguez Office Visit 12/14/2017 8:47a [facility], [place] [address] D50.8 Hospitalists Z98.84 A41.51 Office Visit 12/13/2017 8:46a [facility], [place] [address] D50.8 Hospitalists Z98.84 A41.51 Office Visit 12/12/2017 8:41a [facility], [place] [address] A41.51 Hospitalists K56.609 Z98.84 D50.8 Office Visit 12/11/2017 10:12a [facility] Aidee Uribe [address] K65.9 Infectious Diseases Fuentes Rodriguez Office Visit 12/11/2017 8:40a [facility] [place] [address] A41.51 Assoc, Hospitalists K56.609 Z98.84 D50.8 Office Visit 12/10/2017 8:39a [facility], [place] [address] A41.51 Hospitalists K56.609 N12 D50.8 Office Visit 12/09/2017 8:34a [facility], [place] [address] A41.51 Hospitalists K56.609 N12 D50.8 Office Visit 12/08/2017 1:47p [facility] Aidee Uribe [address] K65.9 Infectious Diseases Fuentes Rodriguez Office Visit 12/08/2017 3:24p [facility] [place] [address] K56.609 Assoc,pc Hospitalists D50.8 A41.51 Z98.84 Office Visit 12/07/2017 1:41p [facility] Aidee Rodriguez [address] K65.Judy Infectious Vicky Dill Z98.84 Office Visit 12/07/2017 3:23p [facility], [place] [address] K56.609 Hospitalists D50.8 A41.51 Office Visit 12/06/2017 3:22p [facility], Alan Ruiz, [address] K56.609 Hospitalists [place] D50.8 A41.51 Z98.84 Office Visit 12/05/2017 3:20p [facility],pc YINA Zavala [address] N12 Hospitalists D50.8 A41.51 K56.609 Office Visit 12/02/2017 7:00a [facility] [place] [address] R10.84 [facility] R11.2 R19.7 Z98.84 Office Visit 06/05/2017 11:00a [facility] [place] [address] Z98.84 [employer] [facility] [employer] Office Visit 07/03/2015 11:12a [facility] [place] [address] 724.5 Assoc, Hospitalists 789.09 592.0 780.96 Office Visit 07/02/2015 11:11a [facility] [place] [address] 592.0 Hospitalists 789.09 780.96 Office Visit 06/02/2014 1:00p [facility] [place], [address] 923.20 C.M.A. RPA-C Plan of Care 01/15/2018 - John Ohara MD, [id number] Perforation of intestine (nontraumatic) Follow up:for ELROY-OLSON placement.
[2018-01-28] MEDS ORDERED: Thiamine IV* 100 MG, Folic Acid IV* 1 MG, Multiple Vitamin IV ADULT* 10 ML in NS 0.9% 1... IV ONE (19:45)
[2018-01-28] MEDS ORDERED: HYDROmorphone INJ* 2 MG/ML CARPUJECT SYRINGE IV SLOW PU ONE ×2 (19:46→22:21)
[2018-01-28] MEDS ORDERED: Metoclopramide IV* 5 MG/ML 2 ML VIAL IV SLOW PU ONE (19:46)
[2018-01-28 20:16] LABS: ABS Basophils 0.1 10^3/ul (0-0.2); ABS Eosinophils 0.2 10^3/ul (0-0.6); ABS Monocytes 0.5 10^3/ul (0-0.8); ABS Neutrophils 4.8 10^3/ul (1.5-7.7); ABS Nucleated RBC 0 10^3/ul; Hematocrit 40 % (35-47); Hemoglobin 13.5 g/dl (12.0-16.0); Lymphocyte % 26.7 % (25-47); Mean Corpuscular HGB Conc 34 g/dl (31-36); Mean Corpuscular Hemoglobin 27 pg (27-31); Mean Corpuscular Volume 81 fL (80-97); Mean Platelet Volume 7 um3 (7.4-10.4); Nucleated Red Blood Cells % 0; Platelet Count 237 10^3/ul (150-450); Red Blood Count 4.94 10^6/ul (4.0-5.4); Red Cell Distribution Width 23 % (10.5-15); White Blood Count 7.5 10^3/ul (3.5-10.8)
[2018-01-28 20:29] LABS: EGFR Non-African American 119.9 (>60)
[2018-01-28 20:31] LABS: INR 0.95 (0.77-1.02)
[2018-01-28] MEDS ORDERED: Iohexol 300* (CONTRAST) 10 ML SDV IV ONE (21:12)
--- NOTE | 2018-01-28 21:36 | RAD ---
CLINICAL HISTORY: Abdominal pain COMPARISON: December 13, 2012 TECHNIQUE: Multiple contiguous axial CT scans were obtained of the abdomen and pelvis after the administration of intravenous contrast. Coronal and sagittal multiplanar reformations are submitted for review. Oral contrast was administered. Delayed images were obtained through the abdomen and pelvis. FINDINGS: LUNG BASES: The lung bases are clear. LIVER: The liver is diffusely low in attenuation compared to the spleen. There are no focal hepatic parenchymal masses. The liver measures 17.8 cm in long axis. BILE DUCTS: There is no intrahepatic or extrahepatic biliary dilatation. GALLBLADDER: The gallbladder is not visualized PANCREAS: The pancreas is normal, without mass or ductal dilatation. SPLEEN: Normal in size and appearance. UPPER GI TRACT: Evaluation of the gastrointestinal tract is limited by incomplete gastric distention. A gastrostomy tube is noted. There is post surgical change to the projected tract. SMALL BOWEL AND MESENTERY: There is distention and mild dilatation of small bowel loops with a transition to decompressed small bowel loops distally within the mid abdomen laterally on the left. COLON: The colon is normal in contour, course, caliber. There is no pericolonic inflammatory change. ADRENALS: Normal bilaterally. KIDNEYS: There is a calculus of lower pole of left kidney measuring 1 cm in size. There is no hydronephrosis. BLADDER: The bladder is smooth in contour. PELVIC ORGANS: The uterus and adnexa are grossly normal for technique. AORTA: The aorta is normal. IVC: Unremarkable LYMPH NODES: There is no lymphadenopathy by size criteria. ABDOMINAL WALL: There is no evidence for abdominal wall hernia. BONES AND SOFT TISSUES: Unremarkable OTHER: There is a small amount of ascites. IMPRESSION: 1. SMALL BOWEL OBSTRUCTION. 2. FATTY INFILTRATION OF THE LIVER. 3. LEFT NEPHROLITHIASIS WITHOUT HYDRONEPHROSIS. 4. SMALL AMOUNT OF ASCITES.
[2018-01-28] MEDS ORDERED: Magnesium Sulfate 1 GM IV* 1 GM/100 ML BAG IV ONE (22:20)
[2018-01-28] MEDS ORDERED: HYDROmorphone INJ* 1 MG/ML CARPUJECT SYRINGE IV SLOW PU ONE (22:27)
--- NOTE | 2018-01-28 22:30 | ED ---
Adis Zuniga Julia, scribed for Umang Charles MD on 01/28/18 at 1947 . Abdominal Pain/Female - HPI Summary HPI Summary: This patient is a 42 year old F presenting to [facility] with a chief complaint of sudden bilateral flank pain radiating to her lower abdomen to since 15:00. The patient rates the pain 10/10 in severity. Patient reports dry heaves and chills. Patient denies fever and urinary symptoms. Her last BM was at 15:00 today, without symptoms. She had a gastric bypass surgery performed in October of 2015, and had two recent hernia repair surgeries in November of 2017. Patient has a history of kidney stones in November 2017. Patient is fed by PEG tube and by PO. Surgeries performed by Dr. Joseph. - History of Current Complaint Chief Complaint: EDFlankPain Stated Complaint: FLANK PAIN Time Seen by Provider: 01/28/18 19:32 Hx Obtained From: Patient Onset/Duration: Sudden Onset, Lasting Hours Timing: Constant Pain Intensity: 10 Pain Scale Used: 0-10 Numeric Location: Flank - bilateral Radiates: Yes Radiates to: Other - lower abdomen Associated Signs and Symptoms: Positive: Other: - chills and dry heaves. Negative: Fever, Urinary Symptoms Allergies/Adverse Reactions: Allergies Allergy/AdvReac Type Severity Reaction Status Date / Time cephalexin Allergy Unknown Verified 01/28/18 19:15 Reaction Details penicillin G Allergy Anaphylatic Verified 01/28/18 19:15 Shock Penicillins Allergy Unknown Verified 01/28/18 19:15 Reaction Details PMH/Surg Hx/FS Hx/Imm Hx Endocrine/Hematology History: Denies: Hx Diabetes Cardiovascular History: Denies: Hx Hypertension, Hx Pacemaker/ICD Respiratory History: Denies: Hx Asthma GI History: Reports: Hx Gastroesophageal Reflux Disease, Hx Hiatal Hernia, Hx Obstructive Bowel, Other GI Disorders - RECENTLY TREATED FOR H PYLORI-09/2015 History: Reports: Hx Kidney Stones Denies: Hx Dialysis, Hx Renal Disease Sensory History: Reports: Hx Contacts or Glasses Denies: Hx Hearing Aid Opthamlomology History: Reports: Hx Contacts or Glasses Neurological History: Reports: Other Neuro Impairments/Disorders - BIPOLAR Psychiatric History: Reports: Hx Anxiety, Hx Attention Deficit Hyperactivity Disorder, Hx Depression, Hx Bipolar Disorder, Other Psychiatric Issues/ Disorders - bipolar Denies: Hx Panic Disorder - Surgical History Surgery Procedure, Year, and Place: GASTRIC BYPASS 10/28/15, TUBES TIED, JOHN, HERNIA REPAIR, laporotomy. Hernia repair and SBO 12/02/17 and 12/05/17 Hx Anesthesia Reactions: No - Immunization History Date of Tetanus Vaccine: UTD per pt Infectious Disease History: No Infectious Disease History: Denies: Traveled Outside the [place] in Last 30 Days - Family History Known Family History: Positive: Hypertension Negative: Cardiac Disease - Social History Alcohol Use: Rare Substance Use Type: Reports: None Smoking Status (MU): Never Smoked Tobacco Review of Systems Positive: Chills. Negative: Fever Gastrointestinal: Negative - bowel symptoms Positive: Abdominal Pain, Other - dry heaving Positive: flank pain. Negative: dysuria All Other Systems Reviewed And Are Negative: Yes Physical Exam - Summary Physical Exam Summary: VITAL SIGNS: Reviewed. GENERAL: Patient is a well-developed and nourished female who is lying comfortable in the stretcher. Patient is not in any acute respiratory distress. HEAD AND FACE: No signs of trauma. No ecchymosis, hematomas or skull depressions. No sinus tenderness. EYES: PERRLA, EOMI x 2, No injected conjunctiva, no nystagmus. EARS: Hearing grossly intact. Ear canals and tympanic membranes are within normal limits. MOUTH: Oropharynx within normal limits. NECK: Supple, trachea is midline, no adenopathy, no JVD, no carotid bruit, no c- spine tenderness, neck with full ROM. CHEST: Symmetric, no tenderness at palpation LUNGS: Clear to auscultation bilaterally. No wheezing or crackles. CVS: Regular rate and rhythm, S1 and S2 present, no murmurs or gallops appreciated. ABDOMEN: Soft. No signs of distention. No rebound no guarding, and no masses palpated. Bowel sounds are normal. Bilateral CVA tenderness. Bilateral lower abdominal tenderness. PEG tube in LLQ. Mid line surgical scar. EXTREMITIES: FROM in all major joints, no edema, no cyanosis or clubbing. NEURO: Alert and oriented x 3. No acute neurological deficits. Speech is normal and follows commands. SKIN: Dry and warm Triage Information Reviewed: Yes Vital Signs On Initial Exam: Initial Vitals Temp Pulse Resp BP Pulse Ox 99.3 F 74 22 109/30 98 01/28/18 19:09 01/28/18 19:09 01/28/18 19:09 01/28/18 19:09 01/28/18 19:09 Vital Signs Reviewed: Yes Diagnostics - Vital Signs Vital Signs Temp Pulse Resp BP Pulse Ox 01/28/18 19:09 99.3 F 74 22 109/30 98 - Laboratory Lab Results: Lab Results 01/28/18 01/28/18 01/28/18 Range/Units 20:00 20:00 20:00 WBC 7.5 (3.5-10.8) 10^3/ul RBC 4.94 (4.0-5.4) 10^6/ul Hgb 13.5 (12.0-16.0) g/dl Hct 40 (35-47) % MCV 81 (80-97) fL MCH 27 (27-31) pg MCHC 34 (31-36) g/dl RDW 23 H (10.5-15) % Plt Count 237 (150-450) 10^3/ul MPV 7 L (7.4-10.4) um3 Neut % (Auto) 64.5 (38-83) % Lymph % (Auto) 26.7 (25-47) % Miller % (Auto) 6.1 (0-7) % Eos % (Auto) 2.0 (0-6) % Baso % (Auto) 0.7 (0-2) % Absolute Neuts (auto) 4.8 (1.5-7.7) 10^3/ul Absolute Lymphs (auto) 2.0 (1.0-4.8) 10^3/ul Absolute Monos (auto) 0.5 (0-0.8) 10^3/ul Absolute Eos (auto) 0.2 (0-0.6) 10^3/ul Absolute Basos (auto) 0.1 (0-0.2) 10^3/ul Absolute Nucleated RBC 0 10^3/ul Nucleated RBC % 0 INR (Anticoag Therapy) 0.95 (0.77-1.02) APTT 32.7 (26.0-36.3) seconds Sodium 135 (133-145) mmol/L Potassium 3.3 L (3.5-5.0) mmol/L Chloride 103 (101-111) mmol/L Carbon Dioxide 25 (22-32) mmol/L Anion Gap 7 (2-11) mmol/L BUN 12 (6-24) mg/dL Creatinine 0.56 (0.51-0.95) mg/dL Est GFR ( Amer) 154.2 (>60) Est GFR (Non-Af Amer) 119.9 (>60) BUN/Creatinine Ratio 21.4 H (8-20) Glucose 97 (70-100) mg/dL Lactic Acid (0.5-2.0) mmol/L Calcium 9.5 (8.6-10.3) mg/dL Magnesium 1.8 L (1.9-2.7) mg/dL Total Bilirubin 0.50 (0.2-1.0) mg/dL AST 20 (13-39) U/L ALT 25 (7-52) U/L Alkaline Phosphatase 115 H (34-104) U/L C-Reactive Protein < 1.00 (< 5.00) mg/L Total Protein 7.4 (6.4-8.9) g/dL Albumin 4.1 (3.2-5.2) g/dL Globulin 3.3 (2-4) g/dL Albumin/Globulin Ratio 1.2 (1-3) Amylase 65 (29-103) U/L Lipase 46 (11.0-82.0) U/L Beta HCG, Quant < 0.60 mIU/mL 01/28/18 Range/Units 20:00 WBC (3.5-10.8) 10^3/ul RBC (4.0-5.4) 10^6/ul Hgb (12.0-16.0) g/dl Hct (35-47) % MCV (80-97) fL MCH (27-31) pg MCHC (31-36) g/dl RDW (10.5-15) % Plt Count (150-450) 10^3/ul MPV (7.4-10.4) um3 Neut % (Auto) (38-83) % Lymph % (Auto) (25-47) % Miller % (Auto) (0-7) % Eos % (Auto) (0-6) % Baso % (Auto) (0-2) % Absolute Neuts (auto) (1.5-7.7) 10^3/ul Absolute Lymphs (auto) (1.0-4.8) 10^3/ul Absolute Monos (auto) (0-0.8) 10^3/ul Absolute Eos (auto) (0-0.6) 10^3/ul Absolute Basos (auto) (0-0.2) 10^3/ul Absolute Nucleated RBC 10^3/ul Nucleated RBC % INR (Anticoag Therapy) (0.77-1.02) APTT (26.0-36.3) seconds Sodium (133-145) mmol/L Potassium (3.5-5.0) mmol/L Chloride (101-111) mmol/L Carbon Dioxide (22-32) mmol/L Anion Gap (2-11) mmol/L BUN (6-24) mg/dL Creatinine (0.51-0.95) mg/dL Est GFR ( Amer) (>60) Est GFR (Non-Af Amer) (>60) BUN/Creatinine Ratio (8-20) Glucose (70-100) mg/dL Lactic Acid 1.0 (0.5-2.0) mmol/L Calcium (8.6-10.3) mg/dL Magnesium (1.9-2.7) mg/dL Total Bilirubin (0.2-1.0) mg/dL AST (13-39) U/L ALT (7-52) U/L Alkaline Phosphatase (34-104) U/L C-Reactive Protein (< 5.00) mg/L Total Protein (6.4-8.9) g/dL Albumin (3.2-5.2) g/dL Globulin (2-4) g/dL Albumin/Globulin Ratio (1-3) Amylase (29-103) U/L Lipase (11.0-82.0) U/L Beta HCG, Quant mIU/mL Result Diagrams: 01/28/18 20:00 01/28/18 20:00 Lab Statement: Any lab studies that have been ordered have been reviewed, and results considered in the medical decision making process. - CT A/P CT Interpretation Completed By: Radiologist - 1. SMALL BOWEL OBSTRUCTION. 2. FATTY INFILTRATION OF THE LIVER. 3. LEFT NEPHROLITHIASIS WITHOUT HYDRONEPHROSIS. 4. SMALL AMOUNT OF ASCITES. ED Physician has reviewed this report. Abdominal Pain Fem Course/Dx - Course Course Of Treatment: Patient presents with sudden bilateral flank pain radiating to her lower abdomen to since 15:00. Patient reports dry heaves and chills. Lab results are unremarkable. Patient is given Dilaudid, Reglan, and IV fluids with multivitamins. The abdominal and pelvis CT is indicative of SBO. I spoke with Dr. Joseph at 21:30 in the ED and informed him of patient's SBO; he agreed to see patient. Dr. Joseph agrees to admit patient at 22:25. - Diagnoses Provider Diagnoses: SBO (small bowel obstruction) - Provider Notifications Discussed Care Of Patient With: Francisco Pappas MD - surgery Time Discussed With Above Provider: 21:30 Instructed by Provider To: MD Will See In ED Discharge - Discharge Plan Condition: Fair Disposition: ADMITTED TO [facility] Referrals: Bre Boyer, [employer]INET ATTENDANT [Primary Care Provider] - The documentation as recorded by the Adis vergara Julia accurately reflects the service I personally performed and the decisions made by me, Umang Charles MD.
[2018-01-28 22:38] LABS: Urine Appearance Clear; Urine Blood Negative (Negative); Urine Color Yellow; Urine Ketones Negative (Negative); Urine Protein Negative (Negative); Urine Specific Gravity 1.036 (1.010-1.030); Urine Urobilinogen Negative (Negative)
[2018-01-28] MEDS ORDERED: KCL 20 MEQ/100 ML IVPREMIX* 20 MEQ/100 ML BAG IV SCH (23:00)
[2018-01-28] MEDS ORDERED: Potassium Chloride IV* 40 MEQ in NS 0.9% 250 ML* 250 ML IVPB ONE (23:00)
--- NOTE | 2018-01-28 23:47 | HP ---
CC: [facility]; Bre Boyer NP * HISTORY AND PHYSICAL: DATE OF ADMISSION: 01/28/18 HISTORY OF PRESENT ILLNESS: I was contacted by emergency room to evaluate Ms. Verma a 42-year-old female known to me after undergoing a gastric bypass just over 2 years ago. The patient's postoperative course was eventful and that approximately 2 months ago at the 4-year joesph, the patient went to the operating room with a significant internal hernia. This was a laparoscopic converted to laparotomy for reduction of hernia and she was take back to the operating room 4 to 3 days later for an injury to the small bowel, which was repaired. The patient was ultimately discharged with a gastrostomy tube and maintained on oral intake as well as intermittent tube feeds. The patient has been using protein drinks through her gastrostomy tube regularly when she feels more weak. She has been doing about 2 to 3 times a day for the last week. She had visiting nurses up until Monday of last week. The patient presents with acute onset of back and flank and abdominal pain that curled her up in a ball that started at about 3 o'clock this afternoon. She did not want to wait given that in November she required urgent OR and was complexed postoperative course. The patient's pain is improved with rest and with narcotics. It is worse with movement. The patient denies any fevers or chills. No nausea. The patient has been eating up until today as well as placing protein drinks through her gastrostomy. She is passing flatus. She has been having multiple loose bowel movements, the last one which was today. PAST MEDICAL HISTORY: 1. Bipolar disorder. 2. ADHD. 3. Kidney stones. 4. Clinically severe obesity. PAST SURGICAL HISTORY: 1. Tubal ligation. 2. Laparoscopic cholecystectomy. 3. Open right inguinal hernia repair as a child. 4. Gastric bypass with resolution of reflux, hypertension, and obesity in 2014 as well as laparotomy 2 months ago. MEDICATIONS: Include: 1. Oxycodone. 2. Lamictal. 3. Clonidine. 4. BuSpar. 5. Seroquel. 6. Abilify. 7. Vitamins. ALLERGIES: List reviewed include CEPHALEXIN and PENICILLIN. SOCIAL HISTORY: The patient is a nonsmoker. She lives with her and family. 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 REVIEW OF SYSTEMS: No fevers or chills. The patient does feel rundown. She has been quite active lately. Her weight is maintained above 105 pounds. Loose bowel movements as described. No dysuria. PHYSICAL EXAMINATION GENERAL: Alert and oriented x3, in no apparent distress. VITAL SIGNS: Temperature 99.3, blood pressure 109/30, pulse rate 74, respirations 22 with an O2 sat of 98%. HEAD, EARS, EYES, NOSE, AND THROAT: Normocephalic and atraumatic. Sclerae anicteric. Mucous membranes are dry. NECK: No lymphadenopathy. LUNGS: Clear to auscultation bilaterally. ABDOMEN: Soft, nondistended. Tender in the right upper quadrant. Well-healed surgical incision. Gastrostomy in place and capped. Bowel sounds are hypoactive. No flank pain, but positive CVA tenderness. EXTREMITIES: Within normal limits. RECTAL EXAM: Not performed. DIAGNOSTIC STUDIES/LAB DATA: Labs reviewed. White count of 7.5 with no left shift, H and H 13.5/40 significantly improved compared to her admission in November. Metabolic panel shows an elevated alk phos, low magnesium, low potassium, normal lipase, albumin of 4.1. The patient underwent a CT scan. This image as well as report was reviewed and the patient is status post gastric bypass. Contrast was taken orally, but most of it through the gastrostomy. Contrast does not appear to reach the colon. It is read as a transition zone noted in the mid abdomen. Kidney stone on the left is appreciated without hydronephrosis. IMPRESSION: A 42-year-old female, status post gastric bypass with complex course 2 months ago with exploratory laparotomy and take back to the operating room now with what appears to be small bowel obstruction and dehydration. PLAN: My plan at this time is for IV hydration, n.p.o. status, gastrostomy tube straight drainage and observation on admission, possible operating room tomorrow if symptoms persist. I described this to the patient who understand. She does not require antibiotics. We will only give her fluids. She did receive the banana bag in the ER. We will discontinue with fluids that contain potassium and magnesium. [id number]/[facility] #: [id number] [facility]
[2018-01-29] MEDS: Ondansetron INJ* 2 MG/ML VIAL IV PRN ×3 (00:18→21:29)
[2018-01-29] MEDS: HYDROmorphone INJ* 2 MG/ML CARPUJECT SYRINGE IV PRN ×9 (01:59→19:16)
[2018-01-29 05:54] LABS: EGFR Non-African American 162.6 (>60)
[2018-01-29 06:12] LABS: ABS Basophils 0.1 10^3/ul (0-0.2); ABS Eosinophils 0.3 10^3/ul (0-0.6); ABS Lymphocytes 2.9 10^3/ul (1.0-4.8); ABS Monocytes 0.8 10^3/ul (0-0.8); ABS Neutrophils 3.2 10^3/ul (1.5-7.7); ABS Nucleated RBC 0 10^3/ul; Eosinophil % 4.7 % (0-6); Hematocrit 35 % (35-47); Hemoglobin 11.5 g/dl (12.0-16.0); Lymphocyte % 39.3 % (25-47); Mean Corpuscular HGB Conc 33 g/dl (31-36); Mean Corpuscular Hemoglobin 27 pg (27-31); Mean Corpuscular Volume 81 fL (80-97); Mean Platelet Volume 8 um3 (7.4-10.4); Nucleated Red Blood Cells % 0.1; Platelet Count 199 10^3/ul (150-450); Red Blood Count 4.25 10^6/ul (4.0-5.4); Red Cell Distribution Width 24 % (10.5-15); White Blood Count 7.3 10^3/ul (3.5-10.8)
[2018-01-29] MEDS ORDERED: Influenza VAC *QUAD* 2017-18* 0.5 ML SYRINGE IM ONE (09:00)
--- NOTE | 2018-01-29 10:25 | PN ---
Progress Note - Progress Note Date of Service: 01/29/18 SOAP: Subjective: Pt seen and examined. Feeling worse today. positive nausea, retchinig. minimal to no flatus Objective: af vss lungs clear abdo: soft/ mild distension/ tender w/o rebound Laboratory Last Values WBC 7.3 10^3/ul (3.5-10.8) 01/29/18 05:19 RBC 4.25 10^6/ul (4.0-5.4) 01/29/18 05:19 Hgb 11.5 g/dl (12.0-16.0) L 01/29/18 05:19 Hct 35 % (35-47) 01/29/18 05:19 MCV 81 fL (80-97) 01/29/18 05:19 MCH 27 pg (27-31) 01/29/18 05:19 MCHC 33 g/dl (31-36) 01/29/18 05:19 RDW 24 % (10.5-15) H 01/29/18 05:19 Plt Count 199 10^3/ul (150-450) 01/29/18 05:19 MPV 8 um3 (7.4-10.4) 01/29/18 05:19 Neut % (Auto) 44.3 % (38-83) 01/29/18 05:19 Lymph % (Auto) 39.3 % (25-47) 01/29/18 05:19 Mccormick % (Auto) 11.0 % (0-7) H 01/29/18 05:19 Eos % (Auto) 4.7 % (0-6) 01/29/18 05:19 Baso % (Auto) 0.7 % (0-2) 01/29/18 05:19 Absolute Neuts (auto) 3.2 10^3/ul (1.5-7.7) 01/29/18 05:19 Absolute Lymphs (auto) 2.9 10^3/ul (1.0-4.8) 01/29/18 05:19 Absolute Monos (auto) 0.8 10^3/ul (0-0.8) 01/29/18 05:19 Absolute Eos (auto) 0.3 10^3/ul (0-0.6) 01/29/18 05:19 Absolute Basos (auto) 0.1 10^3/ul (0-0.2) 01/29/18 05:19 Absolute Nucleated RBC 0 10^3/ul 01/29/18 05:19 Nucleated RBC % 0.1 01/29/18 05:19 INR (Anticoag Therapy) 0.95 (0.77-1.02) 01/28/18 20:00 APTT 32.7 seconds (26.0-36.3) 01/28/18 20:00 Sodium 134 mmol/L (133-145) 01/29/18 05:19 Potassium 4.1 mmol/L (3.5-5.0) 01/29/18 05:19 Chloride 107 mmol/L (101-111) 01/29/18 05:19 Carbon Dioxide 24 mmol/L (22-32) 01/29/18 05:19 Anion Gap 3 mmol/L (2-11) 01/29/18 05:19 BUN 7 mg/dL (6-24) 01/29/18 05:19 Creatinine 0.43 mg/dL (0.51-0.95) L 01/29/18 05:19 Est GFR ( Amer) 209.1 (>60) 01/29/18 05:19 Est GFR (Non-Af Amer) 162.6 (>60) 01/29/18 05:19 BUN/Creatinine Ratio 16.3 (8-20) 01/29/18 05:19 Glucose 80 mg/dL (70-100) 01/29/18 05:19 Lactic Acid 1.0 mmol/L (0.5-2.0) 01/28/18 20:00 Calcium 8.6 mg/dL (8.6-10.3) 01/29/18 05:19 Magnesium 1.8 mg/dL (1.9-2.7) L 01/28/18 20:00 Total Bilirubin 0.50 mg/dL (0.2-1.0) 01/28/18 20:00 AST 20 U/L (13-39) 01/28/18 20:00 ALT 25 U/L (7-52) 01/28/18 20:00 Alkaline Phosphatase 115 U/L (34-104) H 01/28/18 20:00 C-Reactive Protein < 1.00 mg/L (< 5.00) 01/28/18 20:00 Total Protein 7.4 g/dL (6.4-8.9) 01/28/18 20:00 Albumin 4.1 g/dL (3.2-5.2) 01/28/18 20:00 Globulin 3.3 g/dL (2-4) 01/28/18 20:00 Albumin/Globulin Ratio 1.2 (1-3) 01/28/18 20:00 Amylase 65 U/L (29-103) 01/28/18 20:00 Lipase 46 U/L (11.0-82.0) 01/28/18 20:00 Beta HCG, Quant < 0.60 mIU/mL 01/28/18 20:00 Urine Color Yellow 01/28/18 22:29 Urine Appearance Clear 01/28/18 22:29 Urine pH 6.0 (5-9) 01/28/18 22:29 Ur Specific Wideman 1.036 (1.010-1.030) H 01/28/18 22:29 Urine Protein Negative (Negative) 01/28/18 22:29 Urine Ketones Negative (Negative) 01/28/18 22:29 Urine Blood Negative (Negative) 01/28/18 22:29 Urine Nitrate Negative (Negative) 01/28/18 22:29 Urine Bilirubin Negative (Negative) 01/28/18 22:29 Urine Urobilinogen Negative (Negative) 01/28/18 22:29 Ur Leukocyte Esterase Negative (Negative) 01/28/18 22:29 Urine Glucose Negative (Negative) 01/28/18 22:29 Assessment: SBO s/p ex lap 2 mos ago Plan: OR for exploratory laparotomy. R/B/A dscussed with pt and family, including the possibility of negative laparotomy, and pt understands and wishes to proceed. abx
[2018-01-29] MEDS ORDERED: Bupivacaine 0.25% SDV* 30 ML ONE (10:48)
[2018-01-29] MEDS ORDERED: metroNIDAZOLE IV 500 MG/100ML* 500 MG/100 ML BAG IVPB ONE (11:12)
[2018-01-29] MEDS ORDERED: fentaNYL* 50 MCG/ML 2 ML VIAL (100 MCG VIAL) ONE ×3 (11:17→14:20)
[2018-01-29] MEDS ORDERED: Midazolam* 1 MG/ML 2 ML VIAL (2 MG) ONE (11:18)
[2018-01-29] MEDS ORDERED: Propofol* 10 MG/ML 20 ML BTL IV PUSH ONE (11:40)
[2018-01-29] MEDS ORDERED: Succinylcholine* 20 MG/ML 10 ML VIAL ONE (11:40)
[2018-01-29] MEDS ORDERED: Ondansetron INJ* 2 MG/ML VIAL ONE (11:40)
[2018-01-29] MEDS ORDERED: Dexamethasone IV* 4 MG/ML 1 ML (4 MG) ONE (11:40)
[2018-01-29] MEDS ORDERED: Lidocaine 2% PF * 5 ML VIAL ONE (11:41)
[2018-01-29] MEDS ORDERED: EPHEDrine (Pressors)* 50 MG/ML VIAL ONE (11:50)
[2018-01-29] MEDS ORDERED: Gentamicin ADULT (*) 250 MG in NS 0.9% 100 ML* 100 ML IVPB ONE (12:00)
[2018-01-29] MEDS ORDERED: Sevoflurane* 1 BTL ONE (12:16)
--- NOTE | 2018-01-29 13:39 | BRIEFOPN ---
Brief Operative Note - Surgery Procedures: Procedures Pre-OP Diagnoses: SBO Post-op Diagnosis: same Procedure: Exploratory laparotomy, EDDIE, appendectomy Surgeon: Gutierrez [place]: Mars Anethesia: VLADISLAV EBL: 150cc IVF: 1700cc LR Specimen: appendix Drains: #7 MOR in subq space Complications: None
[2018-01-29] MEDS ORDERED: PROCHLORPERAZINE INJ 5 MG/ML 2 ML VIAL IV PRN (13:55)
[2018-01-29] MEDS ORDERED: Metoclopramide IV* 5 MG/ML 2 ML VIAL IV PRN (13:55)
[2018-01-29] MEDS ORDERED: Naloxone* 0.4 MG/ML 1 ML VIAL IV PRN (13:55)
[2018-01-29] MEDS: fentaNYL* 50 MCG/ML 2 ML VIAL (100 MCG VIAL) IV PRN ×2 (14:22→14:43)
[2018-01-29] MEDS ORDERED: Metoclopramide IV* 5 MG/ML 2 ML VIAL ONE (14:49)
[2018-01-29] MEDS ORDERED: HYDROmorphone INJ* 2 MG/ML CARPUJECT SYRINGE ONE (15:14)
[2018-01-29] MEDS: HYDROmorphone INJ* 1 MG/ML CARPUJECT SYRINGE IV PRN ×2 (15:15→16:04)
[2018-01-29] MEDS ORDERED: Morphine PCA ADULT* 5 MG/ML 30 ML PCA SCH (19:00)
[2018-01-29] MEDS ORDERED: HYDROmorphone INJ* 2 MG/ML CARPUJECT SYRINGE IV PRN (21:51)
[2018-01-29] MEDS ORDERED: HYDROmorphone PCA* 20 MG/20 ML PCA.SYRING PCA SCH (22:00)
[2018-01-30] MEDS: Ondansetron INJ* 2 MG/ML VIAL IV PRN ×3 (04:14→15:46)
[2018-01-30 05:45] LABS: EGFR Non-African American 150.5 (>60)
[2018-01-30 06:14] LABS: ABS Basophils 0.1 10^3/ul (0-0.2); ABS Eosinophils 0.1 10^3/ul (0-0.6); ABS Lymphocytes 1.9 10^3/ul (1.0-4.8); ABS Neutrophils 6.4 10^3/ul (1.5-7.7); ABS Nucleated RBC 0 10^3/ul; Eosinophil % 0.6 % (0-6); Hematocrit 36 % (35-47); Hemoglobin 12.2 g/dl (12.0-16.0); Lymphocyte % 19.9 % (25-47); Mean Corpuscular HGB Conc 34 g/dl (31-36); Mean Corpuscular Hemoglobin 27 pg (27-31); Mean Corpuscular Volume 82 fL (80-97); Mean Platelet Volume 8 um3 (7.4-10.4); Nucleated Red Blood Cells % 0; Platelet Count 197 10^3/ul (150-450); Red Blood Count 4.44 10^6/ul (4.0-5.4); Red Cell Distribution Width 24 % (10.5-15); White Blood Count 9.4 10^3/ul (3.5-10.8)
--- NOTE | 2018-01-30 08:50 | PN ---
Progress Note - Progress Note Date of Service: 01/30/18 SOAP: Subjective: pt seen and examined. abdo pain. nausea w/o vomiting. no flatus Objective: af vss uo good a and o x3, nad abdo: soft/ tender at midline and R side dressing intact no calf tenderness labs noted Assessment: pod1 ex lap , kenyatta, appy Plan: change IVF d/c dean oob GI dvt proph restart home meds, ice chips
[2018-01-30] MEDS ORDERED: busPIRone TAB* 10 MG PO PRN (08:52)
[2018-01-30] MEDS: lamoTRIgine TAB(*) 100 MG PO SCH ×2 (09:14→21:10)
[2018-01-30] MEDS: Amphetamine MIXED SALT TAB* 10 MG TAB PO SCH ×2 (09:14→21:10)
[2018-01-30] MEDS: D5W 1/2 NS KCl 20 Meq 1000 ML* 1,000 ML IV SCH ×2 (09:15→20:03)
[2018-01-30] MEDS: QUEtiapine TAB* 100 MG PO SCH (21:00)
[2018-01-31] MEDS: D5W 1/2 NS KCl 20 Meq 1000 ML* 1,000 ML IV SCH ×2 (07:10→21:18)
[2018-01-31] MEDS: Amphetamine MIXED SALT TAB* 10 MG TAB PO SCH ×2 (08:18→17:15)
[2018-01-31] MEDS: lamoTRIgine TAB(*) 100 MG PO SCH ×2 (08:18→21:19)
--- NOTE | 2018-01-31 08:57 | PN ---
Progress Note - Progress Note Date of Service: 01/31/18 SOAP: Subjective: pt seen and examined. abdo pain. less nausea. 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
[2018-01-31] MEDS ORDERED: HYDROmorphone INJ* 2 MG/ML CARPUJECT SYRINGE IV SLOW PU PRN (08:58)
[2018-01-31] MEDS: HYDROmorphone INJ* 2 MG/ML CARPUJECT SYRINGE IV PRN ×4 (12:58→21:18)
[2018-01-31] MEDS: Heparin VIAL(*) 5000 UNITS/ML VIAL (FIVE THOUSAND) SUBCUT SCH ×2 (14:32→21:18)
[2018-01-31] MEDS ORDERED: Acetaminophen TAB* 325 MG PO PRN (19:18)
[2018-01-31] MEDS: QUEtiapine TAB* 100 MG PO SCH (21:19)
[2018-02-01] MEDS: HYDROmorphone INJ* 2 MG/ML CARPUJECT SYRINGE IV PRN ×3 (01:33→07:13)
[2018-02-01] MEDS: Heparin VIAL(*) 5000 UNITS/ML VIAL (FIVE THOUSAND) SUBCUT SCH ×3 (05:24→21:53)
[2018-02-01 05:51] LABS: Hematocrit 27 % (35-47); Hemoglobin 9.3 g/dl (12.0-16.0); Mean Corpuscular HGB Conc 35 g/dl (31-36); Mean Corpuscular Hemoglobin 28 pg (27-31); Mean Corpuscular Volume 81 fL (80-97); Mean Platelet Volume 8 um3 (7.4-10.4); Platelet Count 150 10^3/ul (150-450); Red Cell Distribution Width 23 % (10.5-15); White Blood Count 5.2 10^3/ul (3.5-10.8)
[2018-02-01 06:04] LABS: EGFR Non-African American 162.6 (>60)
[2018-02-01 06:43] LABS: ABS Basophils 0 10^3/ul (0-0.2); ABS Eosinophils 0.3 10^3/ul (0-0.6); ABS Lymphocytes 1.9 10^3/ul (1.0-4.8); ABS Monocytes 0.6 10^3/ul (0-0.8); ABS Neutrophils 2.4 10^3/ul (1.5-7.7); ABS Nucleated RBC 0 10^3/ul; Lymphocyte % 35.8 % (25-47); Nucleated Red Blood Cells % 0
[2018-02-01] MEDS: lamoTRIgine TAB(*) 100 MG PO SCH ×2 (07:13→21:52)
[2018-02-01] MEDS: Amphetamine MIXED SALT TAB* 10 MG TAB PO SCH ×2 (07:13→12:10)
[2018-02-01] MEDS ORDERED: oxyCODONE/Acetamin 5/325 MG* TAB PO PRN (09:12)
--- NOTE | 2018-02-01 09:30 | PN ---
Progress Note - Progress Note Date of Service: 02/01/18 Note: Surgery Progress: S: POD #3. Ty clears. Would like to advance diet. No N/V (G-tube clamped). Passing flatus. No BM. Ambulating. Current Medications Acetaminophen (Tylenol Tab*) 650 mg PO Q4H PRN PRN Reason: mild pain Amphetamine/Dextroamphetamine (Adderall Tab*) 10 mg PO 0800,1200 COUNT INCLUDES THE [facility] Last Admin: 02/01/18 07:13 Dose: 10 mg Buspirone HCl (Buspar Tab*) 10 mg PO TID PRN PRN Reason: ANXIETY Heparin Sodium (Porcine) (Heparin Vial(*)) 5,000 units SUBCUT Q8HR COUNT INCLUDES THE [facility] Last Admin: 02/01/18 05:24 Dose: 5,000 units Hydromorphone HCl (Dilaudid Inj*) 1 mg IV Q1H PRN PRN Reason: Pain - severe Last Admin: 02/01/18 07:13 Dose: 1 mg Potassium Chloride/Dextrose (D5w 1/2 Ns Kcl 20 Meq 1000 Ml*) 1,000 mls @ 80 mls /hr IV PER RATE COUNT INCLUDES THE [facility] Last Admin: 01/31/18 21:18 Dose: 80 mls/hr Lamotrigine (Lamictal Tab(*)) 150 mg PO BID COUNT INCLUDES THE [facility] Last Admin: 02/01/18 07:13 Dose: 150 mg Ondansetron HCl (Zofran Inj*) 4 mg IV Q4H PRN PRN Reason: NAUSEA/VOMITING Last Admin: 01/30/18 15:46 Dose: 4 mg Oxycodone/Acetaminophen (Percocet 5/325 Tab*) 1 tab PO Q4H PRN PRN Reason: moderate pain Oxycodone/Acetaminophen (Percocet 5/325 Tab*) 2 tab PO Q4H PRN PRN Reason: moderately severe pain Quetiapine Fumarate (Seroquel Tab*) 150 mg PO BEDTIME COUNT INCLUDES THE [facility] Last Admin: 01/31/18 21:19 Dose: 150 mg O: Vital Signs - 8 hr 02/01/18 02/01/18 02/01/18 01:33 03:00 03:21 Temperature 98.1 F Pulse Rate 73 Respiratory 18 16 16 Rate Blood Pressure 91/53 (mmHg) O2 Sat by Pulse 96 Oximetry 02/01/18 02/01/18 05:24 07:13 Temperature Pulse Rate Respiratory 16 16 Rate Blood Pressure (mmHg) O2 Sat by Pulse Oximetry Intake and Output Last 24 Hours 01/30/18 01/31/18 02/01/18 02/02/18 06:59 06:59 06:59 06:59 Intake Total 4838 1550 3720 Output Total 1555 1948 1843 Balance 3283 -398 1877 Intake: IV Fluids 4838 1420 2035 D5W 1/2 NS 20 meq KCL 981 2035 GENTAMYACIN 250MG/100ML 100 LR 4638 439 METRONIDAZOLE 500MG/100 100 ML Oral 0 130 1685 Output: G Tube 425 75 MOR #1 65 48 18 Abdominal Drain 40 50 Pigtail Drain 100 Urine 1450 1750 Juarez 1025 300 Other: # Bowel Movements 0 0 Estimated Blood Loss 150 Comment Heart: reg Lungs: clear Abd: +BS; incision ok; MOR small amt clear serosang; soft; min incisional tenderness only Extr: no edema A: s/p exp lap; EDDIE; progressing P: adv to full liqs; heplock IV; d/c MOR?; poss d/c home 02/02?
[2018-02-01] MEDS: D5W 1/2 NS KCl 20 Meq 1000 ML* 1,000 ML IV SCH (10:34)
[2018-02-01] MEDS: oxyCODONE/Acetamin 5/325 MG* TAB PO PRN ×3 (10:34→21:58)
[2018-02-01] MEDS: QUEtiapine TAB* 100 MG PO SCH (21:51)
[2018-02-02] MEDS: D5W 1/2 NS KCl 20 Meq 1000 ML* 1,000 ML IV SCH (01:02)
[2018-02-02] MEDS: Heparin VIAL(*) 5000 UNITS/ML VIAL (FIVE THOUSAND) SUBCUT SCH (06:20)
[2018-02-02] MEDS: lamoTRIgine TAB(*) 100 MG PO SCH (08:27)
[2018-02-02] MEDS: Amphetamine MIXED SALT TAB* 10 MG TAB PO SCH (08:27)
[2018-02-02 08:43] VITALS: BP 99/54
--- NOTE | 2018-02-03 00:20 | DS ---
CC: Bre Boyer NP; [facility]; [facility] DISCHARGE SUMMARY: DATE OF ADMISSION: DATE OF DISCHARGE: 02/02/18 HOSPITAL COURSE: Ms. Verma is a 42-year-old female, status post Cm-en-Y gastric bypass 2 year s ago, who was in the hospital for internal hernia in November who underwent laparotomy, who presented with similar symptoms. This week was admitted with a diagnosis of small bowel obstruction, went to the operating room on hospital day 2 for exploratory laparotomy and extensive lysis of adhesions and an appendectomy. Patient's diet was advanced slowly and by postoperative day #4, she was ready for d ischarge. Patient only received 1 dose of antibiotics leading up to the surgery. She showed no signs of sepsis throughout her course and no additional diagnosis appendix. Pathology was consistent with appendicol ith, but no inflammation. PHYSICAL EXAMINATION: On day of discharge, the patient was examined. She was afebrile. Vital signs were stable. Alert and oriented x3, in no apparent distress. Head, ears, eyes, nose and throat: N ormocephalic, atraumatic. Sclerae anicteric. Mucous membranes are moist. Lungs: Clear to ausculta tion bilaterally. Abdomen: Soft, nondistended, minimal tenderness along the incision. Staple line i ntact without erythema. Extremities within normal limits. DIAGNOSTIC STUDIES/LAB DATA: Labs reviewed during the course of the hospitalization. IMPRESSION: Postoperative day #4, exploratory laparotomy. PLAN FOR DISCHARGE: Followup in the office at [facility] on next week. Patient is aware of the plan. She will resume all her preoperative medications. [id number]/[facility] #: [id number]
--- NOTE | 2018-03-03 23:13 | OP ---
CC: [facility] OPERATIVE REPORT: DATE OF OPERATION: 01/29/18 DATE OF : 79 SURGEON: Alejandro Whitley MD ASSISTANTS: ALEXYS Crews ANESTHESIOLOGIST: ANESTHESIA: General. PRE-OP DIAGNOSIS: Small bowel obstruction. POST-OP DIAGNOSIS: Small bowel obstruction, appendicolith. OPERATIVE PROCEDURE: Exploratory laparotomy, extensive lysis of adhesions and appendectomy. SPECIMENS: Appendix. ESTIMATED BLOOD LOSS: Less than 100 cc. IV FLUIDS: 1700 cc of lactated Ringer's. DRAINS: A #7 MOR drain left in the subcutaneous space and Juarez catheter. INDICATIONS: Ms. Verma is a 42-year-old female status post Cm-en-Y gastric bypass who underwe nt exploratory laparotomy and taken back to the operating room 2 months prior who presented to the [facility] with complaints of abdominal pain and obstipation, was considered for small bowel obstruction, possible internal hernia was taken to the operating room after discussing the risks, benefits and al ternatives to her. I went over them as I typically do and the patient agreed and signed consent. DESCRIPTION OF PROCEDURE: The patient's abdomen was marked. She was brought to the operating room, placed on the operating table in supine position. Preoperative antibiotics were given. Sequential d evices were placed in bilateral lower extremities. General anesthesia was induced. The patient's ab domen was prepped and draped in a standard surgical fashion after a Juarez catheter was inserted. The gastrostomy tubing was draped off of the field. A time-out was performed. Previous laparotomy incision was reentered. This was deepened down through all layers of the abdomin al wall. A seroma cavity was identified in the inferior aspect. This was debrided. Entry into the abdominal cavity was made. Some fluid was encountered. This was serous fluid. The small shannan l was adhered to the anterior abdominal wall. This was taken down with lysis of adhesions taking a b kathie entry into the abdomen. Painstakingly, the adhesiolysis was then carried out eviscerating small bowel. We identified edemato us portions of small bowel in the mid to right upper quadrant abdomen. It appeared kinked, but witho ut any significant adhesions at the site. Both blunt and sharp dissection were carried out throughout to advance the case. Small bowel was eviscerated. It was run from the terminal ileum to the jejunoj ejunostomy. This appeared intact and approximately 200 cm. The jejunojejunostomy was intact, but th e mesenteric defect was still identifiable and this was closed with a running 3-0 silk suture. Next, a Cm limb was run proximately towards the gastric pouch. The gastrostomy was in the way and I did not pursue complete identification of the site. A biliary pancreatic limb was run retrograde and ap peared intact as well. The appendix that had been noted to have some appendicolith was then ligated with 45 mm nevarez stapling device. Mesentery was taken with sutures. It was passed off as specimen. T he abdomen was then irrigated and the small bowel allowed to drop back into the abdomen. The anterio r fascia was then for closure. Additional seroma cavity was then debrided. This was in the in ferior aspect. We then closed with interrupted #1 Vicryl sutures in a figure- of-eight fashion. A # 7 MOR drain was left in the subcutaneous space through a separate stab incision and the skin was reapp roximated with skin suzan followed by sterile dressing. The patient tolerated the procedure well a nd was transferred to the PACU in a stable condition. [id number]/[facility] #: [id number]
== END 2018-02-02 09:50 | disposition home health service (06) | DRG 337 ==
LOC: ED 19:01 → SSU 22:17 → OR 22:41
PROVIDERS: ADMIT Surgery; ATTEND Surgery
PROC: 0DQV0ZZ Repair Mesentery, Open Approach (ICD-10-PCS; 2018-01-29)
PROC: 0DTJ0ZZ Resection of Appendix, Open Approach (ICD-10-PCS; 2018-01-29)
PROC: 0DN80ZZ Release Small Intestine, Open Approach (ICD-10-PCS; principal; 2018-01-29 11:00)
DX: K56.50 Intestinal adhesions [bands], unspecified as to partial versus complete obstruction (principal); K38.1 Appendicular concretions; F31.9 Bipolar disorder, unspecified; K21.9 Gastro-esophageal reflux disease without esophagitis; F41.9 Anxiety disorder, unspecified; F90.9 Attention-deficit hyperactivity disorder, unspecified type; E86.0 Dehydration; Z98.84 Bariatric surgery status; Z82.49 Family history of ischemic heart disease and other diseases of the circulatory system; Z88.1 Allergy status to other antibiotic agents; Z88.0 Allergy status to penicillin; Z72.89 Other problems related to lifestyle; Z87.442 Personal history of urinary calculi; Z98.51 Tubal ligation status; Z90.49 Acquired absence of other specified parts of digestive tract; Z93.1 Gastrostomy status
CPT/HCPCS: 36415; 49002; 74177; 80048; 80053; 81003; 82150; 83605; 83690; 83735; 84100; 84702; 85025; 85610; 85730; 86140; 88304; 90686; 99284; A9270-GY; C1776; J0330; J1100; J1170; J1580; J1644; J2250; J2270; J2405; J2704; J2765; J3010; J3411; J3475; J3480; J3490; Q9967

== ENCOUNTER 2018-02-07 12:59 | Emergency (ER) | payer MEDICARE, MEDICAID ==
[2018-02-07 13:26] VITALS: BP 114/64
[2018-02-07 14:35] LABS: Hematocrit 30 % (35-47); Hemoglobin 10.2 g/dl (12.0-16.0); Mean Corpuscular HGB Conc 34 g/dl (31-36); Mean Corpuscular Hemoglobin 28 pg (27-31); Mean Corpuscular Volume 83 fL (80-97); Mean Platelet Volume 6.6 um3 (7.4-10.4); Platelet Count 397 10^3/ul (150-450); Red Blood Count 3.66 10^6/ul (4.0-5.4); Red Cell Distribution Width 22 % (10.5-15); White Blood Count 10.6 10^3/ul (3.5-10.8)
[2018-02-07 14:52] LABS: EGFR Non-African American 176.8 (>60)
[2018-02-07 14:57] LABS: ABS Basophils 0.1 10^3/ul (0-0.2); ABS Eosinophils 0.5 10^3/ul (0-0.6); ABS Lymphocytes 1.7 10^3/ul (1.0-4.8); ABS Monocytes 1.2 10^3/ul (0-0.8); ABS Neutrophils 7.2 10^3/ul (1.5-7.7); ABS Nucleated RBC 0 10^3/ul; Eosinophil % 4.4 % (0-6); Lymphocyte % 15.8 % (25-47); Nucleated Red Blood Cells % 0
[2018-02-07] MEDS ORDERED: Lidocaine 1% INJ* 10 MG/ML 30 ML SDV ONE (15:30)
[2018-02-07] MEDS ORDERED: Midazolam concentrated* 5 MG/ML 1 ml VIAL ONE (15:30)
[2018-02-07] MEDS ORDERED: fentaNYL* 50 MCG/ML 2 ML VIAL (100 MCG VIAL) ONE (15:32)
--- NOTE | 2018-02-07 15:32 | RAD ---
Indication: Soft tissue mass in the abdomen. Real-time sonography of the superficial abdomen was performed. There is a echogenic mass area is a 7.6 x 2.7 x 3.0 just under the incision. No communication within the peritoneal cavity is noted and this likely represents an abscess. IMPRESSION: Echogenic mass measuring 7.6 x 2.7 x 3.0 cm consistent with abscess.
[2018-02-07] MEDS ORDERED: fentaNYL* 50 MCG/ML 2 ML VIAL (100 MCG VIAL) IV SLOW PU ONE (16:10)
[2018-02-07] MEDS ORDERED: Midazolam* 1 MG/ML 10 ML VIAL (10 MG) IV ONE (16:10)
--- NOTE | 2018-02-07 18:26 | ED ---
Adis Zuniga Julia, scribed for Don Bush MD on 02/07/18 at 1430 . Abdominal Pain/Female - HPI Summary HPI Summary: This patient is a 42 year old F presenting to [facility] with a chief complaint of abdominal pain and swelling s/p abdominal surgery for a bowel obstruction yesterday. The patient rates the pain 10/10 in severity. Patient reports previous surgeries for a bowel obstruction and hernias. Patient denies reactions to anesthesia. Surgery was performed by Dr. Whitley. - History of Current Complaint Chief Complaint: EDAbdPain Stated Complaint: POSSIBLE INFECTION ON STOMACH Time Seen by Provider: 02/07/18 14:10 Hx Obtained From: Patient Onset/Duration: Sudden Onset, Lasting Hours Pain Intensity: 10 Pain Scale Used: 0-10 Numeric Location: Other - along surgical scar Associated Signs and Symptoms: Positive: Negative Allergies/Adverse Reactions: Allergies Allergy/AdvReac Type Severity Reaction Status Date / Time cephalexin Allergy Unknown Verified 02/07/18 13:27 Reaction Details penicillin G Allergy Anaphylatic Verified 02/07/18 13:27 Shock Penicillins Allergy Unknown Verified 02/07/18 13:27 Reaction Details Home Medications: Home Medications ARIPiprazole TAB* [Abilify 2 MG TAB*] 2 mg PO DAILY 02/07/18 [History Confirmed 02/07/18] Ascorbic Acid [C-500] 500 mg PO DAILY 02/07/18 [History Confirmed 02/07/18] Cyanocobalamin TAB* [Vitamin B12 TAB*] 500 mcg PO DAILY 02/07/18 [History Confirmed 02/07/18] lamoTRIgine TAB(*) [LaMICtal TAB(*)] 150 mg PO BID 02/07/18 [History Confirmed 02/07/18] PMH/Surg Hx/FS Hx/Imm Hx Endocrine/Hematology History: Denies: Hx Diabetes Cardiovascular History: Denies: Hx Hypertension, Hx Pacemaker/ICD Respiratory History: Denies: Hx Asthma GI History: Reports: Hx Gastroesophageal Reflux Disease, Hx Hiatal Hernia, Hx Obstructive Bowel, Other GI Disorders - RECENTLY TREATED FOR H PYLORI-09/2015 History: Reports: Hx Kidney Stones Denies: Hx Dialysis, Hx Renal Disease Sensory History: Reports: Hx Contacts or Glasses Denies: Hx Hearing Aid Opthamlomology History: Reports: Hx Contacts or Glasses Neurological History: Reports: Other Neuro Impairments/Disorders - BIPOLAR Psychiatric History: Reports: Hx Anxiety, Hx Attention Deficit Hyperactivity Disorder, Hx Depression, Hx Bipolar Disorder, Other Psychiatric Issues/ Disorders - bipolar Denies: Hx Panic Disorder - Surgical History Surgery Procedure, Year, and Place: GASTRIC BYPASS 10/28/15, TUBES TIED, JOHN, HERNIA REPAIR, laporotomy. Hernia repair and SBO 12/02/17, 12/05/17, 02/06/18 Hx Anesthesia Reactions: No - Immunization History Date of Tetanus Vaccine: UTD per pt Infectious Disease History: Unable to Obtain/Confirm Infectious Disease History: Denies: Traveled Outside the [place] in Last 30 Days - Family History Known Family History: Positive: Hypertension Negative: Cardiac Disease - Social History Alcohol Use: Rare Substance Use Type: Reports: None Smoking Status (MU): Never Smoked Tobacco Review of Systems Positive: Abdominal Pain Positive: Edema - along surgical scar All Other Systems Reviewed And Are Negative: Yes Physical Exam - Summary Physical Exam Summary: Appearance: The patient is well-nourished in no acute distress and in no acute pain. Skin: The skin is warm and dry and skin color reflects adequate perfusion. HEENT: The head is normocephalic and atraumatic. The pupils are equal and reactive. The conjunctivae are clear and without drainage. Nares are patent and without drainage. Mouth reveals moist mucous membranes and the throat is without erythema and exudate. The external ears are intact. The ear canals are patent and without drainage. The tympanic membranes are intact. Neck: the neck is supple with full range of motion and non-tender. There are no carotid bruits. There is no neck vein distension. Respiratory: Chest is non-tender. Lungs are clear to auscultation and breath sounds are symmetrical and equal. Cardiovascular: Heart is regular rate and rhythm. There is no murmur or rub auscultated. There is no peripheral edema and pulses are symmetrical and equal. Abdomen: The abdomen is soft. There are normal bowel sounds heard in all four quadrants and there is no organomegaly palpated. There is erythema and tenderness around recent surgical wound. Musculoskeletal: There is no back tenderness noted. Extremities are non-tender with full range of motion. There is good capillary refill. There is no peripheral edema or calf tenderness elicited. Neurological: Patient is alert and oriented to person, place and time. The patient has symmetrical motor strength in all four extremities. Cranial nerves are grossly intact. Deep tendon reflexes are symmetrical and equal in all four extremities. Psychiatric: The patient has an appropriate affect and does not exhibit any anxiety or depression. Triage Information Reviewed: Yes Vital Signs On Initial Exam: Initial Vitals Temp Pulse Resp BP Pulse Ox 99.2 F 89 20 114/64 100 02/07/18 13:23 02/07/18 13:23 02/07/18 13:23 02/07/18 13:23 02/07/18 13:23 Vital Signs Reviewed: Yes Procedures - Procedure Summary Procedure Summary: Fifteen minutes of face to face conscious sedation was administered. Patient was awake and alert throughout procedure. Patient given 50 micrograms of Fentanyl and 2mg of Versed. She was a Mallampati of II. Diagnostics - Vital Signs Vital Signs Temp Pulse Resp BP Pulse Ox 02/07/18 13:23 99.2 F 89 20 114/64 100 - Laboratory Lab Results: Lab Results 02/07/18 02/07/18 Range/Units 14:20 14:20 WBC 10.6 (3.5-10.8) 10^3/ul RBC 3.66 L (4.0-5.4) 10^6/ul Hgb 10.2 L (12.0-16.0) g/dl Hct 30 L (35-47) % MCV 83 (80-97) fL MCH 28 (27-31) pg MCHC 34 (31-36) g/dl RDW 22 H (10.5-15) % Plt Count 397 (150-450) 10^3/ul MPV 6.6 L (7.4-10.4) um3 Neut % (Auto) 68.3 (38-83) % Lymph % (Auto) 15.8 L (25-47) % [place] % (Auto) 11.0 H (0-7) % Eos % (Auto) 4.4 (0-6) % Baso % (Auto) 0.5 (0-2) % Absolute Neuts (auto) 7.2 (1.5-7.7) 10^3/ul Absolute Lymphs (auto) 1.7 (1.0-4.8) 10^3/ul Absolute Monos (auto) 1.2 H (0-0.8) 10^3/ul Absolute Eos (auto) 0.5 (0-0.6) 10^3/ul Absolute Basos (auto) 0.1 (0-0.2) 10^3/ul Absolute Nucleated RBC 0 10^3/ul Nucleated RBC % 0 Sodium 136 (133-145) mmol/L Potassium 3.7 (3.5-5.0) mmol/L Chloride 104 (101-111) mmol/L Carbon Dioxide 25 (22-32) mmol/L Anion Gap 7 (2-11) mmol/L BUN 12 (6-24) mg/dL Creatinine 0.40 L (0.51-0.95) mg/dL Est GFR ( Amer) 227.4 (>60) Est GFR (Non-Af Amer) 176.8 (>60) BUN/Creatinine Ratio 30.0 H (8-20) Glucose 81 (70-100) mg/dL Calcium 8.6 (8.6-10.3) mg/dL C-Reactive Protein 27.31 H (< 5.00) mg/L Result Diagrams: 02/07/18 14:20 02/07/18 14:20 Lab Statement: Any lab studies that have been ordered have been reviewed, and results considered in the medical decision making process. Re-Evaluation - Re-Evaluation 1 Re-Evaluation Time: 15:30 Comment: Discussed procedure with patient. Patient will be discharged. Abdominal Pain Fem Course/Dx - Course Course Of Treatment: Dr. Whitley brought the patient in and drained her incisional abscess under moderate sedation. - Diagnoses Provider Diagnoses: Abdominal abscess - Provider Notifications Discussed Care Of Patient With: Alejandro Whitley - surgeon Time Discussed With Above Provider: 15:45 Instructed by Provider To: Other - Patient can be discharged and should follow up with him. Discharge - Sign-Out/Discharge Documenting (check all that apply): Discharge - Discharge Plan Condition: Stable Disposition: HOME Prescriptions: Sulfamethox/Trimethoprim DS* [Bactrim DS 800/160 TAB*] 1 tab PO BID #20 tab Patient Education Materials: Bowel Obstruction (ED) Referrals: Alejandro Whitley MD [Medical Doctor] - As Soon As Possible (Follow up with Dr. Whitley as discussed.) - Billing Disposition and Condition Condition: STABLE Disposition: HOME The documentation as recorded by the Adis vergara Julia accurately reflects the service I personally performed and the decisions made by , Don Bush MD.
== END 2018-02-07 17:05 | disposition home or self-care (01) ==
LOC: ED 12:59
DX: R10.9 Unspecified abdominal pain (principal); L02.211 Cutaneous abscess of abdominal wall
CPT/HCPCS: 36415; 76705; 80048; 85025; 86140; 87040; 87070; 87077; 87186; 87205; 87640; 87641; 99283; J2250; J3010

== ENCOUNTER 2018-02-15 10:38 | Emergency (ER) | payer MEDICARE, MEDICAID ==
[2018-02-15] MEDS ORDERED: HYDROmorphone INJ* 1 MG/ML CARPUJECT SYRINGE IV ONE ×2 (10:59→14:07)
[2018-02-15] MEDS ORDERED: NS 0.9% 1000 ML* 1,000 ML IV ONE (10:59)
[2018-02-15] MEDS ORDERED: Ondansetron INJ* 2 MG/ML VIAL IV ONE (10:59)
[2018-02-15 11:25] LABS: ABS Basophils 0.1 10^3/ul (0-0.2); ABS Eosinophils 0.3 10^3/ul (0-0.6); ABS Lymphocytes 2.1 10^3/ul (1.0-4.8); ABS Monocytes 0.8 10^3/ul (0-0.8); ABS Neutrophils 4.6 10^3/ul (1.5-7.7); ABS Nucleated RBC 0 10^3/ul; Eosinophil % 3.6 % (0-6); Hematocrit 32 % (35-47); Hemoglobin 10.8 g/dl (12.0-16.0); Mean Corpuscular HGB Conc 34 g/dl (31-36); Mean Corpuscular Hemoglobin 28 pg (27-31); Mean Corpuscular Volume 83 fL (80-97); Mean Platelet Volume 6.7 um3 (7.4-10.4); Nucleated Red Blood Cells % 0; Platelet Count 458 10^3/ul (150-450); Red Blood Count 3.86 10^6/ul (4.0-5.4); Red Cell Distribution Width 21 % (10.5-15)
[2018-02-15 11:41] LABS: INR 1.01 (0.77-1.02)
[2018-02-15 11:43] LABS: EGFR Non-African American 139.9 (>60)
[2018-02-15] MEDS ORDERED: Iohexol 300* (CONTRAST) 10 ML SDV IV ONE (12:30)
--- NOTE | 2018-02-15 14:19 | RAD ---
CLINICAL HISTORY: Right-sided abdominal pain COMPARISON: January 28, 2018 TECHNIQUE: Multiple contiguous axial CT scans were obtained of the abdomen and pelvis after the administration of intravenous contrast. Coronal and sagittal multiplanar reformations are submitted for review. Oral contrast was administered. Delayed images were obtained through the abdomen and pelvis. FINDINGS: Evaluation is limited by suboptimal contrast opacification. LUNG BASES: The lung bases are clear. LIVER: The liver measures approximately 18 cm in long axis. The liver is diffusely low in attenuation compared to the spleen. BILE DUCTS: There is no intrahepatic or extrahepatic biliary dilatation. GALLBLADDER: The gallbladder is not clearly seen. The patient is status post posterior family history.. PANCREAS: The pancreas is normal, without mass or ductal dilatation. SPLEEN: Normal in size and appearance. UPPER GI TRACT: Evaluation of the gastrointestinal tract is limited by incomplete gastric distention. There is post surgical change to the upper GI tract. A gastrostomy tube is noted. SMALL BOWEL AND MESENTERY: There is mild distention of the small bowel, decreased from the previous examination. There is no dilatation or transition point. COLON: The colon is normal in contour, course, caliber. There is no pericolonic inflammatory change. ADRENALS: Normal bilaterally. KIDNEYS: There is stable left nephrolithiasis. There is no hydronephrosis. BLADDER: The bladder is smooth in contour. PELVIC ORGANS: The uterus and adnexa are grossly normal for technique. The patient appears to be status post tubal ligation. AORTA: The aorta is normal. IVC: Unremarkable LYMPH NODES: There is no lymphadenopathy by size criteria. ABDOMINAL WALL: There is post surgical change to the anterior abdominal wall. A gastrostomy is noted. BONES AND SOFT TISSUES: Unremarkable OTHER: None IMPRESSION: 1. POSTSURGICAL CHANGE. 2. MILD DISTENTION OF SMALL BOWEL WITHOUT DILATATION OR TRANSITION POINT TO SUGGEST OBSTRUCTION. 3. STABLE LEFT NEPHROLITHIASIS. 4. HEPATOMEGALY WITH FATTY INFILTRATION OF LIVER.
[2018-02-15] MEDS ORDERED: Ketorolac INJ* 30 MG/ML 1 ML VIAL IV ONE (14:40)
[2018-02-15 15:30] VITALS: BP 113/58
--- NOTE | 2018-02-15 15:38 | ED ---
Sonido Zuniga Stephanie, scribed for Alan Ritchie MD on 02/15/18 at 1105 . Abdominal Pain/Female - HPI Summary HPI Summary: The pt is a 42 y/o F presenting to the ED with RLQ abd pain that began 3 days ago on 02/12/18. Symptoms include nausea, dry-heaving and decreased urination. The pt denies dehydration and dysuria. The pt states she called Dr. Whitley who suggested she come to the ED to get a CT abdomen/pelvis. She has a hx of 2 intestinal blockages. Her pain is rated as a 10 in severity. Her RLQ pain is aggravated by nothing. The pain is alleviated by nothing. - History of Current Complaint Chief Complaint: EDAbdPain Stated Complaint: RIGHT ABD PAIN Time Seen by Provider: 02/15/18 10:45 Hx Obtained From: Patient ?: No Onset/Duration: Gradual Onset, Lasting Days - 3, Still Present Timing: Constant Severity Currently: Severe Pain Intensity: 10 Pain Scale Used: 0-10 Numeric Location: Discrete At: RLQ Radiates: No Aggravating Factor(s): Nothing Alleviating Factor(s): Nothing Associated Signs and Symptoms: Positive: Nausea, Other: - decreased urination. Negative: Vomiting Allergies/Adverse Reactions: Allergies Allergy/AdvReac Type Severity Reaction Status Date / Time cephalexin Allergy Unknown Verified 02/15/18 15:28 Reaction Details penicillin G Allergy Anaphylatic Verified 02/15/18 15:28 Shock Penicillins Allergy Unknown Verified 02/15/18 15:28 Reaction Details PMH/Surg Hx/FS Hx/Imm Hx Endocrine/Hematology History: Denies: Hx Diabetes Cardiovascular History: Denies: Hx Hypertension, Hx Pacemaker/ICD Respiratory History: Denies: Hx Asthma GI History: Reports: Hx Gastroesophageal Reflux Disease, Hx Hiatal Hernia, Hx Obstructive Bowel, Other GI Disorders - RECENTLY TREATED FOR H PYLORI-09/2015 History: Reports: Hx Kidney Stones Denies: Hx Dialysis, Hx Renal Disease Sensory History: Reports: Hx Contacts or Glasses Denies: Hx Hearing Aid Opthamlomology History: Reports: Hx Contacts or Glasses Neurological History: Reports: Other Neuro Impairments/Disorders - BIPOLAR Psychiatric History: Reports: Hx Anxiety, Hx Attention Deficit Hyperactivity Disorder, Hx Depression, Hx Bipolar Disorder, Other Psychiatric Issues/ Disorders - bipolar Denies: Hx Panic Disorder - Surgical History Surgery Procedure, Year, and Place: GASTRIC BYPASS 10/28/15, TUBES TIED, JOHN, HERNIA REPAIR, laporotomy. Hernia repair and SBO 12/02/17, 12/05/17, 02/06/18 Hx Anesthesia Reactions: No - Immunization History Date of Tetanus Vaccine: UTD per pt Infectious Disease History: No Infectious Disease History: Denies: Traveled Outside the [place] in Last 30 Days - Family History Known Family History: Positive: Hypertension Negative: Cardiac Disease - Social History Occupation: Disabled Lives: With Family Alcohol Use: Rare Hx Substance Use: No Substance Use Type: Reports: None Hx Tobacco Use: No Smoking Status (MU): Never Smoked Tobacco Have You Smoked in the Last Year: No Review of Systems Positive: Other - Negative: dehydration. Negative: Fever Positive: Abdominal Pain, Nausea, Other - dry-heaving Positive: other - decreased urination. Negative: dysuria All Other Systems Reviewed And Are Negative: Yes Physical Exam - Summary Physical Exam Summary: General: well-appearing, Mild pain distress Skin: warm, color reflects adequate perfusion, dry Head: normal Eyes: EOMI, KETURAH ENT: normal Neck: supple, nontender Respiratory: CTA, breath sounds present Cardiovascular: RRR Abdomen: soft, RLQ tenderness, G tube in place and a periumbilical dressing is present. Bowel: hypoactive bowel sounds Musculoskeletal: normal, strength/ROM intact Neurological: normal, sensory/motor intact, A&O x3 Psychological: affect/mood appropriate Triage Information Reviewed: Yes Vital Signs On Initial Exam: Initial Vitals Temp Pulse Resp BP Pulse Ox 98.1 F 84 24 106/76 100 02/15/18 10:40 02/15/18 10:40 02/15/18 10:40 02/15/18 10:40 02/15/18 10:40 Vital Signs Reviewed: Yes Diagnostics - Vital Signs Vital Signs Temp Pulse Resp BP Pulse Ox 02/15/18 10:40 98.1 F 84 24 106/76 100 - Laboratory Lab Results: Lab Results 02/15/18 02/15/18 02/15/18 Range/Units 11:11 11:11 11:11 WBC 8.0 (3.5-10.8) 10^3/ul RBC 3.86 L (4.0-5.4) 10^6/ul Hgb 10.8 L (12.0-16.0) g/dl Hct 32 L (35-47) % MCV 83 (80-97) fL MCH 28 (27-31) pg MCHC 34 (31-36) g/dl RDW 21 H (10.5-15) % Plt Count 458 H D (150-450) 10^3/ul MPV 6.7 L (7.4-10.4) um3 Neut % (Auto) 57.7 (38-83) % Lymph % (Auto) 27.0 (25-47) % Hernando % (Auto) 10.4 H (0-7) % Eos % (Auto) 3.6 (0-6) % Baso % (Auto) 1.3 (0-2) % Absolute Neuts (auto) 4.6 (1.5-7.7) 10^3/ul Absolute Lymphs (auto) 2.1 (1.0-4.8) 10^3/ul Absolute Monos (auto) 0.8 (0-0.8) 10^3/ul Absolute Eos (auto) 0.3 (0-0.6) 10^3/ul Absolute Basos (auto) 0.1 (0-0.2) 10^3/ul Absolute Nucleated RBC 0 10^3/ul Nucleated RBC % 0 INR (Anticoag Therapy) 1.01 (0.77-1.02) APTT 32.1 (26.0-36.3) seconds Sodium 141 (139-145) mmol/L Potassium 3.2 L (3.5-5.0) mmol/L Chloride 106 (101-111) mmol/L Carbon Dioxide 28 (22-32) mmol/L Anion Gap 7 (2-11) mmol/L BUN 14 (6-24) mg/dL Creatinine 0.49 L (0.51-0.95) mg/dL Est GFR ( Amer) 179.9 (>60) Est GFR (Non-Af Amer) 139.9 (>60) BUN/Creatinine Ratio 28.6 H (8-20) Glucose 75 (70-100) mg/dL Lactic Acid (0.5-2.0) mmol/L Calcium 8.6 (8.6-10.3) mg/dL Total Bilirubin 0.20 (0.2-1.0) mg/dL AST 24 (13-39) U/L ALT 28 (7-52) U/L Alkaline Phosphatase 104 (34-104) U/L C-Reactive Protein < 1.00 (< 5.00) mg/L Total Protein 6.4 (6.4-8.9) g/dL Albumin 3.2 (3.2-5.2) g/dL Globulin 3.2 (2-4) g/dL Albumin/Globulin Ratio 1.0 (1-3) Lipase 46 (11.0-82.0) U/L 02/15/18 Range/Units 11:11 WBC (3.5-10.8) 10^3/ul RBC (4.0-5.4) 10^6/ul Hgb (12.0-16.0) g/dl Hct (35-47) % MCV (80-97) fL MCH (27-31) pg MCHC (31-36) g/dl RDW (10.5-15) % Plt Count (150-450) 10^3/ul MPV (7.4-10.4) um3 Neut % (Auto) (38-83) % Lymph % (Auto) (25-47) % Hernando % (Auto) (0-7) % Eos % (Auto) (0-6) % Baso % (Auto) (0-2) % Absolute Neuts (auto) (1.5-7.7) 10^3/ul Absolute Lymphs (auto) (1.0-4.8) 10^3/ul Absolute Monos (auto) (0-0.8) 10^3/ul Absolute Eos (auto) (0-0.6) 10^3/ul Absolute Basos (auto) (0-0.2) 10^3/ul Absolute Nucleated RBC 10^3/ul Nucleated RBC % INR (Anticoag Therapy) (0.77-1.02) APTT (26.0-36.3) seconds Sodium (139-145) mmol/L Potassium (3.5-5.0) mmol/L Chloride (101-111) mmol/L Carbon Dioxide (22-32) mmol/L Anion Gap (2-11) mmol/L BUN (6-24) mg/dL Creatinine (0.51-0.95) mg/dL Est GFR ( Amer) (>60) Est GFR (Non-Af Amer) (>60) BUN/Creatinine Ratio (8-20) Glucose (70-100) mg/dL Lactic Acid 1.0 (0.5-2.0) mmol/L Calcium (8.6-10.3) mg/dL Total Bilirubin (0.2-1.0) mg/dL AST (13-39) U/L ALT (7-52) U/L Alkaline Phosphatase (34-104) U/L C-Reactive Protein (< 5.00) mg/L Total Protein (6.4-8.9) g/dL Albumin (3.2-5.2) g/dL Globulin (2-4) g/dL Albumin/Globulin Ratio (1-3) Lipase (11.0-82.0) U/L Result Diagrams: 02/15/18 11:11 02/15/18 11:11 Lab Statement: Any lab studies that have been ordered have been reviewed, and results considered in the medical decision making process. - CT Abdomen/Pelvis CT Interpretation: Positive (See Comments) CT Interpretation Completed By: Radiologist - 1. POSTSURGICAL CHANGE. 2. MILD DISTENTION OF SMALL BOWEL WITHOUT DILATATION OR TRANSITION POINT TO SUGGEST OBSTRUCTION. 3. STABLE LEFT NEPHROLITHIASIS. 4. HEPATOMEGALY WITH FATTY INFILTRATION OF LIVER. ED physician has reviewed this report. Re-Evaluation - Re-Evaluation First Eval Re-Evaluation Time: 14:57 Change: Unchanged - ED physician discussed imaging results with the pt and recommended follow up with Dr. Whitley. The pt understands and agrees to discharge and follow up plan. The pt will be discharged with Toradol PO and Colace. Abdominal Pain Fem Course/Dx - Course Course Of Treatment: DISCUSSED WITH DR WHITLEY. HE RECOMMENDS RX COLACE AND TORADOL AND F/U WITH HIM WITHIN ONE WEEK. DISCUSSED RESULTS WITH THE PATIENT AND HER FAMILY. WILL F/U WITH DR WHITLEY; RETURN TO ED IF WORSE. - Diagnoses Provider Diagnoses: Abdominal pain Discharge - Sign-Out/Discharge Documenting (check all that apply): Discharge - Discharge Plan Condition: Stable Disposition: HOME Prescriptions: Docusate Sodium [Colace] 100 mg PO QID PRN #30 capsule PRN Reason: Constipation Ketorolac TAB * [Toradol TAB *] 10 mg PO Q6H PRN #20 tab PRN Reason: Pain Patient Education Materials: Acute Abdominal Pain (ED) Referrals: Alejandro Whitley MD [Medical Doctor] - Bre Boyer, LABOUR MARKET ECONOMIST [Primary Care Provider] - Additional Instructions: FOLLOW UP WITH DR WHITLEY. CALL TODAY TO ARRANGE FOLLOW UP. RETURN TO THE EMERGENCY DEPARTMENT FOR ANY WORSENING OF YOUR CONDITION; PAIN, FEVER, VOMITING, DEHYDRATION, YOU FEEL ILL OR QUESTIONS OR CONCERNS. - Billing Disposition and Condition Condition: STABLE Disposition: HOME The documentation as recorded by the Sonido vergara Stephanie accurately reflects the service I personally performed and the decisions made by me, Alan Ritchie MD.
== END 2018-02-15 15:30 | disposition home or self-care (01) ==
LOC: ED 10:38
DX: R10.31 Right lower quadrant pain (principal); R11.0 Nausea; Z87.19 Personal history of other diseases of the digestive system
CPT/HCPCS: 36415; 74177; 80053; 83605; 83690; 85025; 85610; 85730; 86140; 96374; 96375; 99283; J1170; J2405; Q9967

== ENCOUNTER 2018-03-27 03:32 | Inpatient (IN) | payer MEDICARE, MEDICAID ==
[2018-03-27] MEDS ORDERED: Metoclopramide IV* 5 MG/ML 2 ML VIAL IV SLOW PU ONE (03:57)
[2018-03-27] MEDS ORDERED: HYDROmorphone INJ* 2 MG/ML CARPUJECT SYRINGE IV SLOW PU ONE ×2 (03:57→06:33)
[2018-03-27] MEDS ORDERED: NS 0.9% 1000 ML* 1,000 ML IV ONE (03:58)
[2018-03-27 04:26] LABS: ABS Basophils 0.1 10^3/ul (0-0.2); ABS Eosinophils 0.1 10^3/ul (0-0.6); ABS Lymphocytes 2.4 10^3/ul (1.0-4.8); ABS Monocytes 0.6 10^3/ul (0-0.8); ABS Neutrophils 5.3 10^3/ul (1.5-7.7); ABS Nucleated RBC 0 10^3/ul; Eosinophil % 1.2 % (0-6); Hematocrit 40 % (35-47); Hemoglobin 13.6 g/dl (12.0-16.0); Lymphocyte % 28.1 % (25-47); Mean Corpuscular HGB Conc 34 g/dl (31-36); Mean Corpuscular Hemoglobin 31 pg (27-31); Mean Corpuscular Volume 90 fL (80-97); Mean Platelet Volume 7.5 um3 (7.4-10.4); Nucleated Red Blood Cells % 0.1; Platelet Count 246 10^3/ul (150-450); Red Blood Count 4.45 10^6/ul (4.0-5.4); Red Cell Distribution Width 17 % (10.5-15); White Blood Count 8.5 10^3/ul (3.5-10.8)
[2018-03-27 04:42] LABS: EGFR Non-African American 112.9 (>60)
--- NOTE | 2018-03-27 06:00 | ED ---
Sandra Zuniga Rebecca, scribed for Umang Charles MD on 03/27/18 at 0358 . Abdominal Pain/Female - HPI Summary HPI Summary: Pt is a 42 y/o F who presents to ED c/o abdominal pain. Pain began 2 days ago and is currently severe, ranked 10/10. 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 Last BM was 3-4 days ago. Multiple surgeries to the abdomen, with the first being gastric bypass in 2014 and the most recent a few months ago. She is unsure of the date of the most recent surgery. Has a G tube in place which she sometimes uses when she cannot tolerate PO intake. - History of Current Complaint Chief Complaint: EDAbdPain Stated Complaint: ABD PAIN Time Seen by Provider: 03/27/18 03:49 Hx Obtained From: Patient Onset/Duration: Lasting Days - 2 days ago, Still Present Severity Currently: Severe Pain Intensity: 10 Pain Scale Used: 0-10 Numeric Aggravating Factor(s): Nothing Alleviating Factor(s): Nothing Associated Signs and Symptoms: Positive: Vomiting Allergies/Adverse Reactions: Allergies Allergy/AdvReac Type Severity Reaction Status Date / Time cephalexin Allergy Unknown Verified 02/15/18 15:28 Reaction Details penicillin G Allergy Anaphylatic Verified 02/15/18 15:28 Shock Penicillins Allergy Unknown Verified 02/15/18 15:28 Reaction Details PMH/Surg Hx/FS Hx/Imm Hx Endocrine/Hematology History: Denies: Hx Diabetes Cardiovascular History: Denies: Hx Hypertension, Hx Pacemaker/ICD Respiratory History: Denies: Hx Asthma GI History: Reports: Hx Gastroesophageal Reflux Disease, Hx Hiatal Hernia, Hx Obstructive Bowel, Other GI Disorders - RECENTLY TREATED FOR H PYLORI-09/2015 History: Reports: Hx Kidney Stones Denies: Hx Dialysis, Hx Renal Disease Sensory History: Reports: Hx Contacts or Glasses Denies: Hx Hearing Aid Opthamlomology History: Reports: Hx Contacts or Glasses Neurological History: Reports: Other Neuro Impairments/Disorders - BIPOLAR Psychiatric History: Reports: Hx Anxiety, Hx Attention Deficit Hyperactivity Disorder, Hx Depression, Hx Bipolar Disorder, Other Psychiatric Issues/ Disorders - bipolar Denies: Hx Panic Disorder - Surgical History Surgery Procedure, Year, and Place: GASTRIC BYPASS 10/28/15, TUBES TIED, JOHN, HERNIA REPAIR, laporotomy. Hernia repair and SBO 12/02/17, 12/05/17, 02/06/18 Hx Anesthesia Reactions: No - Immunization History Date of Tetanus Vaccine: UTD per pt Infectious Disease History: No Infectious Disease History: Denies: Traveled Outside the [place] in Last 30 Days - Family History Known Family History: Positive: Hypertension Negative: Cardiac Disease - Social History Alcohol Use: Rare Hx Substance Use: No Substance Use Type: Reports: None Hx Tobacco Use: No Smoking Status (MU): Never Smoked Tobacco Have You Smoked in the Last Year: No Review of Systems Negative: Fever Positive: Abdominal Pain, Vomiting, Other - Constipation All Other Systems Reviewed And Are Negative: Yes Physical Exam - Summary Physical Exam Summary: VITAL SIGNS: Reviewed. GENERAL: ~Patient is a well-developed and nourished female who is lying comfortable in the stretcher. Patient is not in any acute respiratory distress. HEAD AND FACE: No signs of trauma. No ecchymosis, hematomas or skull depressions. No sinus tenderness. EYES: PERRLA, EOMI x 2, No injected conjunctiva, no nystagmus. EARS: Hearing grossly intact. Ear canals and tympanic membranes are within normal limits. MOUTH: Oropharynx within normal limits. NECK: Supple, trachea is midline, no adenopathy, no JVD, no carotid bruit, no c- spine tenderness, neck with full ROM. CHEST: Symmetric, no tenderness at palpation LUNGS: Clear to auscultation bilaterally. No wheezing or crackles. CVS: Regular rate and rhythm, S1 and S2 present, no murmurs or gallops appreciated. ABDOMEN: Soft, diffusely tender. No signs of distention. No rebound no guarding , and no masses palpated. Bowel sounds are hyperactive. Has a ELROY-HERNÁNDEZ tube in the LUQ. EXTREMITIES: FROM in all major joints, no edema, no cyanosis or clubbing. NEURO: Alert and oriented x 3. No acute neurological deficits. Speech is normal and follows commands. SKIN: Dry and warm Triage Information Reviewed: Yes Vital Signs On Initial Exam: Initial Vitals Temp Pulse Resp BP Pulse Ox 98.7 F 89 22 120/70 100 03/27/18 03:33 03/27/18 03:33 03/27/18 03:33 03/27/18 03:33 03/27/18 03:33 Vital Signs Reviewed: Yes Diagnostics - Vital Signs Vital Signs Temp Pulse Resp BP Pulse Ox 03/27/18 03:33 98.7 F 89 22 120/70 100 - Laboratory Result Diagrams: 03/27/18 04:14 03/27/18 04:14 Lab Statement: Any lab studies that have been ordered have been reviewed, and results considered in the medical decision making process. - Radiology Abdomen XR Xray Interpretation: Positive (See Comments) - She has an air-filled liver, consistent with SBO. Pending official report. Radiology Interpretation Completed By: ED Physician Re-Evaluation - Re-Evaluation First Eval Re-Evaluation Time: 04:45 Comment: Discussed results with the pt. Second Eval Re-Evaluation Time: 04:59 Comment: Updated the pt on the conversation with Dr. Tran. Abdominal Pain Fem Course/Dx - Course Course Of Treatment: Pt is a 42 y/o F who presents to ED c/o abdominal pain for 2 days, currently severe, ranked 10/10. 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 Last BM was 3-4 days ago. Multiple surgeries to the abdomen, with the first being gastric bypass in 2014 and the most recent a few months ago. She is unsure of the date of the most recent surgery. Has a G tube in place which she sometimes uses when she cannot tolerate PO intake. Blood work was done. Abd XR reveals that she has an air- filled liver, consistent with SBO. Discussed care of pt with Dr. Tran who requested a CT Abd/Pel and will see the pt in the ED. In the ED course, pt received dilaudid, reglan, and fluids. Pt will be signed out to Dr. Richey, pending CT Abd/Pel. Allergies noted. - Diagnoses Provider Diagnoses: SBO (small bowel obstruction) - Provider Notifications Discussed Care Of Patient With: Hai Tran Time Discussed With Above Provider: 04:55 Instructed by Provider To: Other - Would like a CT, will then see the pt in the ED. Discharge - Sign-Out/Discharge Documenting (check all that apply): Sign-Out Patient Signing out patient TO: Lana Richey - Discharge Plan Condition: Stable Referrals: Bre Boyer, CLOTHING PRESSER [Primary Care Provider] - The documentation as recorded by the Sandra vergara Rebecca accurately reflects the service I personally performed and the decisions made by me, Umang Charles MD.
[2018-03-27] MEDS ORDERED: Iohexol 300* (CONTRAST) 10 ML SDV IV ONE (06:29)
[2018-03-27] MEDS ORDERED: Ondansetron INJ* 2 MG/ML VIAL IV ONE (06:33)
--- NOTE | 2018-03-27 06:40 | ED ---
Sandra Zuniga Rebecca, scribed for Umang Charles MD on 03/27/18 at 0638 . Progress - Progress Note Progress Note: Prior to getting her CT Abd/Pel the patient is unable to and does not want to drink the oral contrast. She will have to have the CTs can without oral contrast , having only IV contrast. Re-Evaluation - Re-Evaluation First Eval Re-Evaluation Time: 06:38 Comment: Pt is going for her CT scan now. Course/Dx - Course Course Of Treatment: Prior to getting her CT Abd/Pel the patient is unable to and does not want to drink the oral contrast. She will have to have the CTs can without oral contrast, having only IV contrast. - Diagnoses Provider Diagnoses: SBO (small bowel obstruction) - Provider Notifications Time Discussed With Above Provider: 04:55 Instructed by Provider To: Other - Would like a CT, will then see the pt in the ED. Discharge - Sign-Out/Discharge Documenting (check all that apply): Sign-Out Patient Signing out patient TO: Lana Richey - Discharge Plan Condition: Stable Referrals: Bre Boyer, OFFICE AUTOMATION CLERK [Primary Care Provider] - The documentation as recorded by the Sandra vergara Rebecca accurately reflects the service I personally performed and the decisions made by , Umang Charles MD.
[2018-03-27 07:08] LABS: Urine Appearance Cloudy; Urine Blood Negative (Negative); Urine Color Yellow; Urine Ketones Negative (Negative); Urine Protein Negative (Negative); Urine Specific Gravity 1.027 (1.010-1.030); Urine Urobilinogen Negative (Negative)
--- NOTE | 2018-03-27 08:10 | RAD ---
INDICATION: Abdominal pain. Small bowel obstruction. Recurrent small bowel obstructions this year. Post gastric bypass in October 2015. Post cholecystectomy and previous hernia repair. COMPARISON: March 27, 2018 abdomen radiograph and February 15, 2018 CT. TECHNIQUE: Multidetector CT images were obtained from the lung bases to the ischial tuberosities with 60 mL Omnipaque 300 IV contrast. Multiplanar reformation. REPORT: Unremarkable visualized inferior thorax. Postcholecystectomy accounting for mild prominence of the intra and extrahepatic bile ducts without significant change. 16.5 cm cephalocaudal liver is negative for suspicious focal lesions. Unremarkable pancreas and spleen. Postsurgical change of Cm-en-Y gastric bypass with the Cm limb coursing anterior to the transverse colon. Complete small bowel obstruction at the approximate jejunal ileal junction at the midline central lower abdomen. No discrete obstructing lesion evident. An adhesion is favored. Negative for significant associated small bowel wall thickening. Negative for pneumatosis. Negative for perienteric inflammatory change. The appendix is not visualized. RIGHT lower quadrant surgical clips suggest potential previous appendectomy. The colon is largely decompressed. Small to moderate volume of free fluid at the dependent pelvis. Negative for free air. Midline laparotomy scar. Normal adrenal glands. Suggestion of early focus of pyelographic phase contrast at the lower pole calyx of the LEFT kidney. Negative for suspicious renal lesions or hydronephrosis. No suspicious finding along the course of the nondilated ureters. Decompressed urinary bladder. Prominent 9.4 x 6.6 x 5.9 cm anteverted uterus without significant change. 2.5 cm near water density sharply circumscribed structure at the RIGHT ovary is most consistent with a follicular cyst. Negative for lymphadenopathy. Normal diameter abdominal aorta and iliac arteries. Partially decompressed IVC consistent with lower volume state. 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 Unchanged small bone island at the RIGHT sacral ala. Negative for suspicious focal osseous lesions. [place] images saved on the [facility] PACS. IMPRESSION: 1. Complete small bowel obstruction at the approximate jejunal ileal junction at the midline central lower abdomen. No discrete obstructing lesion evident. An adhesion is favored given previous surgery and history of previous adhesions. 2. Small to moderate volume of free fluid at the dependent pelvis. Negative for free air.
--- NOTE | 2018-03-27 08:58 | RAD ---
INDICATION: Abdominal pain. Surgical history includes gastric bypass surgery, cholecystectomy, hernia repair and laparotomy for SBO. COMPARISON: None TECHNIQUE: Supine and upright views of the abdomen were obtained. FINDINGS: Again seen is surgical material overlying the left hemiabdomen. There are air-fluid levels seen in the stomach and in dilated loops of bowel in the left upper quadrant. A large amount of stool is noted in the cecum though the colon is not pathologically dilated by radiographic criteria. There is no definite free intraperitoneal gas. IMPRESSION: Air-fluid levels and dilated loops of proximal small bowel appear similar to the December 27, 2017 radiograph consistent with the patient's history of bowel obstructions.
--- NOTE | 2018-03-27 10:19 | HP ---
CC: Bre Boyer; [facility] * HISTORY AND PHYSICAL: DATE OF ADMISSION: 03/27/18 HISTORY OF PRESENT ILLNESS: Surgical service was contacted by the emergency room regarding Ms. Verma, a 42-year-old female, status post Cm-en-Y gastric bypass with 2 trips to the operating room for obstruction since November. She presented to the emergency room at approximately 3 a.m. with complaints of a 2-day history of flank pain radiating to her front and nausea and vomiting with bilious vomiting similar to previous episodes. Patient described feeling poorly 2 days ago. She thought she could just drink fluids, stay hydrated and it would pass; but, when it worsened, she presented to the emergency room. She cannot remember her last bowel movement. She has had minimal flatus. Pain does not radiate to her back but does from her flanks up to her front. She is urinating. Denies any dysuria. Patient states that the symptoms are very similar to previous episodes. Patient went to the operating room for gastric bypass over 2 years ago, lost a significant amount of weight, did leave the region only to return after almost a year. She did return because she was having some symptoms that led to hospitalizations without any surgical followup or bariatric surgeon who is willing to take up her case. It is unclear if she was having symptoms similar to what she has had since presenting back to [facility] or if she was having more of a concern of anemia or some other electrolyte problems at that time. No records are available. PAST MEDICAL HISTORY: Clinically severe obesity, bipolar disorder, ADHD, kidney stones. PAST SURGICAL HISTORY: Laparoscopic cholecystectomy, gastric bypass, open right inguinal hernia as a child, laparotomy with internal hernia reduction and take back to the OR in November, exploratory laparotomy in January for small bowel obstruction. MEDICATIONS: Medication list reviewed and includes: 1. Lamictal. 2. Clonidine. 3. BuSpar. 4. Seroquel. 5. Abilify. 6. Adderall. She no longer takes pain medication. She does take a multivitamin. ALLERGIES: Allergy list is reviewed. SOCIAL HISTORY: She lives at home with her family, nonsmoker. Denies IV drug abuse. REVIEW OF SYSTEMS: No shortness of breath or chest pain. No headaches. Abdominal complaints as described. Last bowel movement is unmemorable. She denies any dysuria. No bleeding or clotting disorders. PHYSICAL EXAMINATION GENERAL: She is afebrile. She is alert and oriented x3. She is in no apparent distress. VITAL SIGNS: Stable. HEENT: Normocephalic, atraumatic. Sclerae anicteric. Mucous membranes dry. NECK: No lymphadenopathy. LUNGS: Clear to auscultation bilaterally. ABDOMEN: Soft, tender diffusely. A well-healed midline incision without hernia. Gastrostomy in place with ELROY-HERNÁNDEZ tube in. Tender to percussion in the upper abdomen. Hypoactive bowel sounds. EXTREMITIES: Within normal limits. RECTAL: Not performed. DIAGNOSTIC STUDIES/LAB DATA: Labs reviewed and within normal limits. Hemoglobin is 13.6, which is higher than her baseline. BUN creatinine ratio is 24, which is elevated. Normal CRP. Of note, the patient is 113 pounds which is up approximately 7 pounds since last visit to the hospital. CT scan reviewed, does show small bowel obstruction; however, there is stool and air in the colon, significantly dilated remnant stomach. IMPRESSION: Small bowel obstruction of unclear etiology, possible adhesions versus functional. PLAN: Plan is for watchful waiting, drainage of the remnant stomach. This was performed by removing the ELROY-HERNÁNDEZ tube and placing a 22-gauge Juarez catheter and then placing it to straight drainage, approximately 225 cc of output at this point, bilious but somewhat thicker than expected. We will continue the drainage. Strict I's and O's, IV fluids, n.p.o. status, out of bed to chair. We are going to hold her medications. Patient is aware of the plan. We will follow her closely. [id number]/[facility] #: [id number] FARHAN
[2018-03-27] MEDS: Ondansetron 40 MG VIAL* 2 MG/ML 20 ML VIAL IV PRN ×3 (10:56→21:29)
[2018-03-27] MEDS: Morphine VIAL* 4 MG/ML VIAL (1 ml vial) IV PRN ×3 (10:57→21:29)
--- NOTE | 2018-03-27 13:50 | ED ---
IDarien Jennifer, scribed for Lana iRchey MD on 03/27/18 at 0731 . Progress - Progress Note Progress Note: The patient is a sign-out from Dr. Charles pending CT Abd/Pel. CT Abd/Pel. Interpreted by a radiologist. IMPRESSION: 1. Complete small bowel obstruction at the approximate jejunal ileal junction at the midline central lower abdomen. No discrete obstructing lesion evident. An adhesion is favored given previous surgery and history of previous adhesions. 2. Small to moderate volume of free fluid at the dependent pelvis. Negative for free air. Dr. Richey has reviewed this report. The patient will be admitted to [facility]. Re-Evaluation - Re-Evaluation First Eval Re-Evaluation Time: 06:38 Comment: Pt is going for her CT scan now. Second Eval Re-Evaluation Time: 04:59 Comment: Updated the pt on the conversation with Dr. Tran. Course/Dx - Course Course Of Treatment: Prior to getting her CT Abd/Pel the patient is unable to and does not want to drink the oral contrast. She will have to have the CTs can without oral contrast, having only IV contrast. The patient will be admitted to [facility]. Patient seen and evaluated at the bedside by General Surgery with plan to admit. Patient HD stable upon admission - Diagnoses Provider Diagnoses: SBO (small bowel obstruction) - Provider Notifications Time Discussed With Above Provider: 04:55 Instructed by Provider To: Other - Would like a CT, will then see the pt in the ED. Discharge - Sign-Out/Discharge Documenting (check all that apply): Discharge/Admit/Transfer - Discharge Plan Condition: Good Disposition: ADMITTED TO [facility] - Billing Disposition and Condition Condition: GOOD Disposition: [facility]OSP-[facility] The documentation as recorded by the Darien vergara Jennifer accurately reflects the service I personally performed and the decisions made by , Lana Richey MD.
[2018-03-28] MEDS: Ondansetron 40 MG VIAL* 2 MG/ML 20 ML VIAL IV PRN ×5 (04:19→21:16)
[2018-03-28] MEDS: Morphine VIAL* 4 MG/ML VIAL (1 ml vial) IV PRN ×5 (04:19→21:16)
[2018-03-28] MEDS ORDERED: busPIRone TAB* 10 MG PO PRN (08:10)
--- NOTE | 2018-03-28 08:15 | PN ---
Progress Note - Progress Note Date of Service: 03/28/18 SOAP: Subjective: Pt seen and examined. Up last night 2ary to pain no flatus, some nausea. some appetite Objective: af vss g tube output bilious ? recorded in last shift lungs clear b/l abdo: soft/ ND/ tender w/o rebound BS throughout, high-pitched at times ext wnl labs P Assessment: HD2 SBO Plan: NPO except meds G tube drainage OOB pain control AXR in am
[2018-03-28 08:57] LABS: ABS Basophils 0.1 10^3/ul (0-0.2); ABS Eosinophils 0.1 10^3/ul (0-0.6); ABS Lymphocytes 2.4 10^3/ul (1.0-4.8); ABS Monocytes 0.6 10^3/ul (0-0.8); ABS Neutrophils 3.8 10^3/ul (1.5-7.7); ABS Nucleated RBC 0 10^3/ul; Hematocrit 33 % (35-47); Hemoglobin 11.1 g/dl (12.0-16.0); Lymphocyte % 33.7 % (25-47); Mean Corpuscular HGB Conc 34 g/dl (31-36); Mean Corpuscular Hemoglobin 31 pg (27-31); Mean Corpuscular Volume 90 fL (80-97); Mean Platelet Volume 7.8 um3 (7.4-10.4); Nucleated Red Blood Cells % 0; Platelet Count 176 10^3/ul (150-450); Red Blood Count 3.64 10^6/ul (4.0-5.4); Red Cell Distribution Width 16 % (10.5-15)
[2018-03-28 09:19] LABS: EGFR Non-African American 130.6 (>60)
[2018-03-28] MEDS: Ketorolac INJ* 30 MG/ML 1 ML VIAL IV PUSH PRN ×2 (09:47→16:05)
[2018-03-28] MEDS: lamoTRIgine TAB(*) 25 MG PO SCH ×2 (09:48→21:16)
[2018-03-28] MEDS: cloNIDine TAB* 0.1 MG PO SCH ×2 (10:30→21:17)
[2018-03-28] MEDS: Amphetamine MIXED SALT TAB* 10 MG TAB PO SCH ×2 (10:30→16:45)
[2018-03-29] MEDS: QUEtiapine TAB* 300 MG PO SCH ×2 (00:49→23:42)
[2018-03-29] MEDS: Morphine VIAL* 4 MG/ML VIAL (1 ml vial) IV PRN ×4 (01:18→15:43)
[2018-03-29] MEDS: Ondansetron 40 MG VIAL* 2 MG/ML 20 ML VIAL IV PRN ×4 (01:18→15:42)
[2018-03-29] MEDS: cloNIDine TAB* 0.1 MG PO SCH ×2 (08:22→21:23)
[2018-03-29] MEDS: lamoTRIgine TAB(*) 25 MG PO SCH ×2 (08:22→21:23)
[2018-03-29] MEDS: Amphetamine MIXED SALT TAB* 10 MG TAB PO SCH ×2 (08:22→17:01)
--- NOTE | 2018-03-29 11:50 | RAD ---
Indication: Evaluate for bowel obstruction Flat and upright views of the abdomen demonstrates no free air. Stool is present throughout the colon. No dilated loops of bowel are noted. No organomegaly is noted. Previously identified air fluid levels are no longer present and this likely represents resolving bowel obstruction. IMPRESSION: Air distended colon with no abnormally dilated loops of small bowel noted. Previous identified air-fluid levels are no longer present and likely represent resolving obstruction.
[2018-03-29] MEDS: Ketorolac INJ* 30 MG/ML 1 ML VIAL IV PUSH PRN ×2 (12:03→18:09)
--- NOTE | 2018-03-29 12:20 | PN ---
Progress Note - Progress Note Date of Service: 03/29/18 SOAP: Subjective: Pt seen and examined. no flatus. some appetite Objective: Temp Pulse Resp BP Pulse Ox 99.5 F 62 16 92/52 98 03/29/18 07:20 03/29/18 07:20 03/29/18 12:10 03/29/18 07:20 03/29/18 07:20 g tube output bilious , increased output abdo: soft/ ND/ tender w/o rebound ext wnl axr: air in colon Assessment: HD3 resolving SBO Plan: clears G tube drainage OOB pain control
[2018-03-29] MEDS ORDERED: HYDROmorphone INJ* 2 MG/ML CARPUJECT SYRINGE IV PRN (15:45)
[2018-03-29] MEDS ORDERED: Bisacodyl SUPP* 10 MG SUPP PR ONE (16:00)
--- NOTE | 2018-03-29 16:13 | PN ---
Progress Note - Progress Note Date of Service: 03/29/18 SOAP: Subjective: []Pt seen and examined at bedside. Pt states she is "starting to feel more hungry" but continues to have abdominal pain. She reports pain is unchanged since yesterday 03/28/18 but reports it is improved with pain medication. She has been drinking and tolerating sips of clear liquids. She has been able to ambulate several times today. Denies flatus. Denies N/V/D. Denies fever/chills. Objective: []Vital Signs 03/29/18 @11:42 T:99.6F HR:58bmp BP:113/67 RR:16 100% O2 on Room air Exam: CV: RRR. No murmur, rub, gallop. Lungs: CTA in all matthew Abd: Moderate distension with tympany to percussion. Hyperactive bowel sounds throughout. Tenderness to light palpation throughout. No rebound or guarding. Ext: 2+ distal pulses. No edema. G tube: Area of insertion shows no signs of infection or inflammation. Approximately 350mL of bilious drainage from tube in collecting bag. 535mL of drainage recorded @06:59. AXR: Air distended colon with no abnormally dilated loops of small bowel. Previous air fluid levels no longer present Labs 03/28/18: WBC 7.0 RBC 3.64 Hgb 11.1 Hct 33 Plt Count 176 Na 137 K 3.5 Cl 105 Co2 26 BUN 8 Cr 0.52 Ca 8.4 Total Bili 0.50 AST 11 ALT 11 Alk Phos 84 Assessment: []Absence of air fluid levels on AXR suggestive of resolving bowel obstruction. Vital signs normal. No apparent distress. Abdominal discomfort controlled with pain medications. Patient tolerating sips of clear liquids well. G tube site without infection/inflammation and continues to drain bilious fluid. Plan: []Continue G tube with monitoring of drainage. Continue IV fluid hydration and sips of clear liquids Encourage OOB and ambulation several times daily Continue pain control
[2018-03-29] MEDS: HYDROmorphone INJ* 2 MG/ML CARPUJECT SYRINGE IV PRN ×2 (20:16→23:42)
[2018-03-30] MEDS: Ketorolac INJ* 30 MG/ML 1 ML VIAL IV PUSH PRN ×4 (00:11→19:23)
[2018-03-30] MEDS: HYDROmorphone INJ* 2 MG/ML CARPUJECT SYRINGE IV PRN ×10 (03:43→23:31)
[2018-03-30 06:27] LABS: ABS Basophils 0 10^3/ul (0-0.2); ABS Eosinophils 0.2 10^3/ul (0-0.6); ABS Lymphocytes 1.9 10^3/ul (1.0-4.8); ABS Monocytes 0.5 10^3/ul (0-0.8); ABS Neutrophils 2.1 10^3/ul (1.5-7.7); ABS Nucleated RBC 0 10^3/ul; Eosinophil % 3.8 % (0-6); Hematocrit 29 % (35-47); Hemoglobin 10.3 g/dl (12.0-16.0); Lymphocyte % 40.8 % (25-47); Mean Corpuscular HGB Conc 35 g/dl (31-36); Mean Corpuscular Hemoglobin 31 pg (27-31); Mean Corpuscular Volume 89 fL (80-97); Mean Platelet Volume 7.8 um3 (7.4-10.4); Nucleated Red Blood Cells % 0; Platelet Count 138 10^3/ul (150-450); Red Blood Count 3.28 10^6/ul (4.0-5.4); Red Cell Distribution Width 15 % (10.5-15); White Blood Count 4.7 10^3/ul (3.5-10.8)
[2018-03-30] MEDS: cloNIDine TAB* 0.1 MG PO SCH ×2 (07:26→21:49)
[2018-03-30] MEDS: Amphetamine MIXED SALT TAB* 10 MG TAB PO SCH ×2 (07:26→16:00)
[2018-03-30] MEDS: lamoTRIgine TAB(*) 25 MG PO SCH ×2 (07:26→21:48)
[2018-03-30] MEDS: Bisacodyl EC TAB* 5 MG PO SCH ×2 (11:51→19:17)
--- NOTE | 2018-03-30 13:39 | PN ---
Progress Note - Progress Note Date of Service: 03/30/18 SOAP: Subjective: Pt seen and examined. Pt copntinues to complain of abdo pain. No nausea. small flatus Objective: af vss, SBP= 90s g tube output 400cc shift a adn o x3 lungs clear b/l abdo: soft/ distended today/ continued tenderness, no rebound hypoactive BS labs noted Assessment: resolving SBO Plan: pain control CT scan tomorrow if continued pain dulcolax OOB clears continue G tube drainage
[2018-03-30] MEDS: QUEtiapine TAB* 300 MG PO SCH (23:35)
[2018-03-31] MEDS: Ketorolac INJ* 30 MG/ML 1 ML VIAL IV PUSH PRN ×4 (01:41→20:02)
[2018-03-31] MEDS: HYDROmorphone INJ* 2 MG/ML CARPUJECT SYRINGE IV PRN ×13 (01:41→23:50)
[2018-03-31] MEDS: Bisacodyl EC TAB* 5 MG PO SCH (04:28)
[2018-03-31] MEDS: lamoTRIgine TAB(*) 25 MG PO SCH ×2 (07:33→20:01)
[2018-03-31] MEDS: cloNIDine TAB* 0.1 MG PO SCH ×2 (07:33→20:00)
[2018-03-31] MEDS: Amphetamine MIXED SALT TAB* 10 MG TAB PO SCH ×2 (07:33→16:37)
--- NOTE | 2018-03-31 08:58 | PN ---
Progress Note - Progress Note Date of Service: 03/31/18 SOAP: Subjective: Pt seen and examined. Pt copntinues to complain of abdo pain. No flatus or BM. Tolerating clears Objective: af vss g tube output increased a adn o x3 abdo: soft/ distended today/ continued tenderness, no rebound hypoactive BS Assessment: SBO- unclear at this time if resolving Plan: pain control CT scan today OOB npo for CT scan continue G tube drainage
[2018-03-31] MEDS ORDERED: Iohexol 300* (CONTRAST) 10 ML SDV IV ONE (09:36)
[2018-03-31] MEDS: D5W 1/2 NS KCl 20 Meq 1000 ML* 1,000 ML IV SCH ×2 (10:03→21:37)
--- NOTE | 2018-03-31 12:55 | RAD ---
Indication: Gastric bypass with hernia repair. Contrast: Administered 68.3 ml of OMNIPAQUE 300 mg/ml CT of the abdomen and pelvis was performed after oral and IV contrast administration. Coronal and sagittal reconstructed images were obtained. Comparison is made with previous exam dated March 27, 2018. The lung bases demonstrate no pleural fluid, nodules or masses. Heart is of normal size without evidence of pericardial effusion. The liver is normal in size. No focal lesions or intrahepatic duct dilatation is noted. The spleen is normal in size. The pancreas demonstrates no mass or pancreatic duct dilatation. The common duct is not dilated. The gallbladder is not visualized. No adrenal masses are noted. The kidneys demonstrate symmetric nephrograms with likely calculi in the lower pole of left kidney. Contrast distended loops of small bowel are noted. No evidence of abnormal dilatation is noted. Previous identified small bowel loops are no longer present on prior exam and is essentially resolved. There is air and fluid throughout the colon suggestive of a colonic ileus. This can be traced all the way to the rectum. The retroperitoneal adenopathy is noted. Aorta and inferior vena cava are unremarkable. A small to moderate amount of free fluid is noted in the pelvis. The urinary bladder is otherwise unremarkable. The uterus and ovaries are unremarkable. Patient status post gastric bypass surgery. Feeding tube is in place. When compared to March 27, 2018 small bowel dilatation has essentially resolved with residual colonic dilatation. IMPRESSION: The small bowel demonstrates no abnormal dilatation. Previously identified dilated loops of small bowel have essentially resolved. There is dilated colon throughout extending into the rectum and the possibility of a colonic ileus should be considered. Moderate amount of free fluid is noted in the cul-de-sac.
[2018-03-31] MEDS: QUEtiapine TAB* 300 MG PO SCH (20:00)
[2018-04-01] MEDS: QUEtiapine TAB* 300 MG PO SCH (01:07)
[2018-04-01] MEDS: HYDROmorphone INJ* 2 MG/ML CARPUJECT SYRINGE IV PRN (01:08)
[2018-04-01] MEDS ORDERED: HYDROmorphone PCA* 20 MG/20 ML PCA.SYRING PCA SCH ×2 (02:00→08:00)
[2018-04-01] MEDS ORDERED: NS 0.9% 1000 ML* 1,000 ML IV ONE (07:37)
[2018-04-01] MEDS: D5W 1/2 NS KCl 20 Meq 1000 ML* 1,000 ML IV SCH ×2 (07:53→23:37)
--- NOTE | 2018-04-01 08:18 | PN ---
Progress Note - Progress Note Date of Service: 04/01/18 Note: Surgery I was called to see Ms. Sharma when her BP was low. She had had continuous rather than intermittent dilaudid overnight. She denies dizziness or lightheadedness. Her only complaint is of pain that is sharp, continuous, present since about a week before admission and unchanged in that time. It is "all over the belly". She says she has not had a BM or flatus, but she denies nausea. Vital Signs 03/31/18 03/31/18 03/31/18 09:33 10:03 11:43 Temperature 98.7 F Pulse Rate 86 Respiratory 18 18 18 Rate Blood Pressure 107/68 (mmHg) O2 Sat by Pulse 97 Oximetry 03/31/18 03/31/18 03/31/18 12:25 12:46 13:57 Temperature Pulse Rate Respiratory 16 16 16 Rate Blood Pressure (mmHg) O2 Sat by Pulse Oximetry 03/31/18 03/31/18 03/31/18 14:50 15:21 16:36 Temperature 97.8 F Pulse Rate 66 Respiratory 16 18 16 Rate Blood Pressure 98/50 (mmHg) O2 Sat by Pulse 98 Oximetry 03/31/18 03/31/18 03/31/18 17:25 18:44 19:17 Temperature Pulse Rate Respiratory 14 16 12 Rate Blood Pressure (mmHg) O2 Sat by Pulse Oximetry 03/31/18 03/31/18 03/31/18 19:38 20:02 20:03 Temperature 97.8 F Pulse Rate 74 Respiratory 18 18 18 Rate Blood Pressure 102/57 (mmHg) O2 Sat by Pulse 100 Oximetry 03/31/18 03/31/18 03/31/18 21:27 22:32 23:27 Temperature 98.6 F Pulse Rate 75 Respiratory 14 14 10 Rate Blood Pressure 110/60 (mmHg) O2 Sat by Pulse 98 Oximetry 03/31/18 04/01/18 04/01/18 23:50 01:08 02:39 Temperature Pulse Rate Respiratory 14 18 16 Rate Blood Pressure (mmHg) O2 Sat by Pulse Oximetry 04/01/18 04/01/18 04/01/18 02:40 02:43 03:13 Temperature Pulse Rate 75 Respiratory 16 16 14 Rate Blood Pressure 110/60 (mmHg) O2 Sat by Pulse 98 99 Oximetry 05/04/01/18 04/01/18 03:42 04:13 04:36 Temperature 98.0 F Pulse Rate 65 Respiratory 14 15 16 Rate Blood Pressure 84/42 (mmHg) O2 Sat by Pulse 96 99 Oximetry 04/01/18 04/01/18 04/01/18 04:46 05:13 06:13 Temperature Pulse Rate Respiratory 12 12 Rate Blood Pressure 90/55 (mmHg) O2 Sat by Pulse 95 96 Oximetry 04/01/18 07:36 Temperature Pulse Rate 78 Respiratory 12 Rate Blood Pressure 74/44 (mmHg) O2 Sat by Pulse Oximetry General: able to stand without dizziness. Abd: good BS, non-tender when stethoscope is placed on belly, but exquisitely tender to manual very light palpation. No localizing features. rectal: no stool in vault, lots of gas in vault; some liquid stool on bed after exam A/P: Not obstructed by CT scan; no localizing findings on exam; will continue pain control and liquid diet, continue to follow; IV saline bolus ordered to address BP. [facility]Foster Intake & Output 03/31/18 04/01/18 04/01/18 22:59 06:59 14:59 Intake Total 1800 1025 Output Total 0 Balance 1800 1025 Intake: IV Fluids 1200 1025 D5W 1/2 NS 20 meq KCL 1025 LR 1200 IVPB 600 D5W 1/2 NS 20 meq KCL 600 Oral 0 Output: Urine 0 Other: # Bowel Movements 0 # Voids 1 0
[2018-04-01] MEDS: lamoTRIgine TAB(*) 25 MG PO SCH ×2 (09:31→21:43)
[2018-04-01] MEDS: cloNIDine TAB* 0.1 MG PO SCH ×2 (09:31→21:45)
[2018-04-01] MEDS: Amphetamine MIXED SALT TAB* 10 MG TAB PO SCH ×2 (09:31→17:36)
[2018-04-01] MEDS: Ketorolac INJ* 30 MG/ML 1 ML VIAL IV PUSH PRN ×2 (11:34→19:29)
[2018-04-01] MEDS: Ondansetron 40 MG VIAL* 2 MG/ML 20 ML VIAL IV PRN (14:28)
[2018-04-01] MEDS: Silver Sulfadiazine 1%* 20 GM TOPICAL PRN (17:37)
[2018-04-02] MEDS: QUEtiapine TAB* 300 MG PO SCH ×2 (02:04→23:41)
[2018-04-02] MEDS: Ketorolac INJ* 30 MG/ML 1 ML VIAL IV PUSH PRN ×2 (02:05→08:15)
[2018-04-02] MEDS: Silver Sulfadiazine 1%* 20 GM TOPICAL PRN ×4 (02:11→23:59)
[2018-04-02] MEDS: Amphetamine MIXED SALT TAB* 10 MG TAB PO SCH ×2 (07:54→17:43)
[2018-04-02] MEDS: cloNIDine TAB* 0.1 MG PO SCH ×2 (07:54→21:37)
[2018-04-02] MEDS: Ondansetron 40 MG VIAL* 2 MG/ML 20 ML VIAL IV PRN ×2 (07:54→19:46)
--- NOTE | 2018-04-02 08:35 | PN ---
Progress Note - Progress Note Date of Service: 04/02/18 SOAP: Subjective: Pt seen and examined. Still with abdo pain. No BM, no flatus no nausea. Appetite improving Objective: Temp Pulse Resp BP Pulse Ox 97.3 F 78 16 90/40 98 04/02/18 03:36 04/02/18 06:30 04/02/18 07:00 04/02/18 03:36 04/02/18 07:00 Intake & Output 03/31/18 04/01/18 04/02/18 04/03/18 06:59 06:59 06:59 06:59 Intake Total 1471 3285 5386 Output Total 2250 350 910 Balance -779 2935 4476 Intake: IV Fluids 1021 2225 2656 D5W 1/2 NS 20 meq KCL 1025 2585 LR 1021 1200 ns 71 IVPB 600 D5W 1/2 NS 20 meq KCL 600 Oral 838 013 0029 Output: G Tube 2025 350 910 Urine 0 0 Juarez 225 Other: Estimated Void Large Medium # Bowel Movements 0 0 0 # Voids 3 0 1 Intake & Output 03/31/18 04/01/18 04/02/18 04/03/18 06:59 06:59 06:59 06:59 Intake Total 1471 3285 5386 Output Total 2250 350 910 Balance -779 2935 4476 Intake: IV Fluids 1021 2225 2656 D5W 1/2 NS 20 meq KCL 1025 2585 LR 1021 1200 ns 71 IVPB 600 D5W 1/2 NS 20 meq KCL 600 Oral 151 406 3454 Output: G Tube 2025 350 910 Urine 0 0 Juarez 225 Other: Estimated Void Large Medium # Bowel Movements 0 0 0 # Voids 3 0 1 Intake and Output Last 24 Hours 03/31/18 04/01/18 04/02/18 04/03/18 06:59 06:59 06:59 06:59 Intake Total 1471 3285 5386 Output Total 2250 350 910 Balance -779 2935 4476 Intake: IV Fluids 1021 2225 2656 D5W 1/2 NS 20 meq KCL 1025 2585 LR 1021 1200 ns 71 IVPB 600 D5W 1/2 NS 20 meq KCL 600 Oral 361 609 9082 Output: G Tube 2025 350 910 Urine 0 0 Juarez 225 Other: Estimated Void Large Medium # Bowel Movements 0 0 0 # Voids 3 0 1 a and o x3, nad abdo: soft/ mild distension/ less tender, no rebound Gastrostomy site with drainage and skin changes Juarez removed and Tati replaced and capped CT images reviewed Assessment: resolving SBO, constipation, HD stable Plan: enema d/c g tube drainage liquids pain control
[2018-04-02] MEDS: lamoTRIgine TAB(*) 25 MG PO SCH ×2 (09:40→21:28)
[2018-04-02] MEDS: D5W 1/2 NS KCl 20 Meq 1000 ML* 1,000 ML IV SCH ×2 (11:51→23:44)
[2018-04-03 06:42] LABS: Hematocrit 33 % (35-47); Hemoglobin 11.3 g/dl (12.0-16.0); Mean Corpuscular HGB Conc 34 g/dl (31-36); Mean Corpuscular Hemoglobin 31 pg (27-31); Mean Corpuscular Volume 90 fL (80-97); Platelet Count 156 10^3/ul (150-450); Red Blood Count 3.68 10^6/ul (4.0-5.4); Red Cell Distribution Width 15 % (10.5-15); White Blood Count 5.7 10^3/ul (3.5-10.8)
[2018-04-03 07:00] LABS: EGFR Non-African American 115.1 (>60)
[2018-04-03] MEDS: lamoTRIgine TAB(*) 25 MG PO SCH ×2 (08:32→20:49)
[2018-04-03] MEDS: Amphetamine MIXED SALT TAB* 10 MG TAB PO SCH ×2 (08:32→17:15)
[2018-04-03] MEDS: cloNIDine TAB* 0.1 MG PO SCH ×2 (08:32→20:49)
[2018-04-03] MEDS: Silver Sulfadiazine 1%* 20 GM TOPICAL PRN ×2 (10:22→23:30)
[2018-04-03] MEDS: D5W 1/2 NS KCl 20 Meq 1000 ML* 1,000 ML IV SCH (10:23)
--- NOTE | 2018-04-03 15:27 | PN ---
Progress Note - Progress Note Date of Service: 04/03/18 SOAP: Subjective: pt seen and examined. 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
[2018-04-03] MEDS: oxyCODONE/Acetamin 5/325 MG* TAB PO PRN ×2 (18:36→23:28)
[2018-04-03] MEDS: QUEtiapine TAB* 300 MG PO SCH (23:28)
[2018-04-04] MEDS: Amphetamine MIXED SALT TAB* 10 MG TAB PO SCH ×3 (09:16→17:03)
[2018-04-04] MEDS: cloNIDine TAB* 0.1 MG PO SCH ×2 (09:34→21:16)
[2018-04-04] MEDS: lamoTRIgine TAB(*) 25 MG PO SCH ×2 (09:34→21:16)
[2018-04-04] MEDS: Silver Sulfadiazine 1%* 20 GM TOPICAL PRN ×2 (09:46→21:08)
--- NOTE | 2018-04-04 19:52 | PN ---
Progress Note - Progress Note Date of Service: 04/04/18 SOAP: Subjective: Pt seen and examined. Feeling better. still with abdo pian. No nausea. Pos flatus and BM Objective: afebrile a and o x3, and abdo; soft/ ND/ NT gastrostomy site intact sacrum, stage 2 ulcer small Assessment: resolving sbo, resolving constipation Plan: change pain meds d/c home planning
[2018-04-04] MEDS: QUEtiapine TAB* 300 MG PO SCH (23:42)
[2018-04-05] MEDS: cloNIDine TAB* 0.1 MG PO SCH (08:44)
[2018-04-05] MEDS: Amphetamine MIXED SALT TAB* 10 MG TAB PO SCH (08:44)
[2018-04-05] MEDS: lamoTRIgine TAB(*) 25 MG PO SCH (08:44)
[2018-04-05 11:31] VITALS: BP 103/59
[2018-04-05] MEDS: Silver Sulfadiazine 1%* 20 GM TOPICAL PRN (11:38)
--- NOTE | 2018-04-06 01:38 | DS ---
CC: Bre Boyer NP; [facility] * DISCHARGE SUMMARY: DATE OF ADMISSION: 03/27/18 DATE OF DISCHARGE: 04/05/18 HISTORY OF PRESENT ILLNESS: Ms. Verma is a 42-year-old female who was admitted to my service with a diagnosis of small bowel obstruction on 03/27/18. The patient is well known to me after multiple trips to the operating room, most recent which was 2 months ago for small bowel obstruction. The patient has been followed at [facility]. She is status post gastric bypass a year and a half ago with significant weight loss. HOSPITAL COURSE: The patient was admitted to the floor, given IV fluids and pain medications. Followup serial exams every day showed minimal improvement. The patient remained on narcotics with abdominal pain and obstipation. This started to improved by day #4, but she was sent for a second CAT scan after the admission to follow up since improvement was somewhat marginal. This CAT scan showed dilation of the large bowel rather than small bowel and showed resolution of the small bowel obstruction, but picture of constipation led to continued hospitalization. At this point, I did cap her gastrostomy tube. Her remnant gastrostomy tube was maintained to gravity drainage during her first 4 days of the hospitalization. She was given clear liquids and this was advanced slowly. The patient's constipation was treated with enemas as well as laxatives. She was slow to open up but once she did, her diet was advanced she was ready for discharge. On day of discharge, the patient was seen and evaluated. She was afebrile. Vital signs were stable. Blood pressure in the 90s, but mentating well. Lungs clear. Abdomen: Soft, nondistended, nontender. Tom-Madera tube in the gastrostomy site noted, positive bowel sounds. Extremities within normal limits. IMPRESSION: Complicating case of recurrent trips to the operating room with abdominal pain, now with a nonoperative course that resolved without surgical intervention. My concern is that this will reoccur and we will follow up the patient closely and she may warrant another trip to the operating room over the course of the next year. She has a followup appointment 2 weeks from now at [facility]. I would like her to stay away from narcotics. She back on her home medications and we will hold off on the use of her gastrostomy tube until I see her in 2 weeks. [id number]/[facility] #: [id number] MTDD
== END 2018-04-05 12:50 | disposition home health service (06) | DRG 389 ==
LOC: ED 03:32 → MED 09:19 → UNDOADMIN 09:19 → SSU 09:19 → MEDTELE 10:48 → MED 03-30 22:42
PROVIDERS: ADMIT Surgery; ATTEND Surgery
PROC: 0D9630Z Drainage of Stomach with Drainage Device, Percutaneous Approach (ICD-10-PCS; 2018-03-27)
PROC: 3E1H78Z Irrigation of Lower GI using Irrigating Substance, Via Natural or Artificial Opening (ICD-10-PCS; principal; 2018-04-04)
DX: K56.601 Complete intestinal obstruction, unspecified as to cause (principal); Z43.1 Encounter for attention to gastrostomy; K59.00 Constipation, unspecified; F31.9 Bipolar disorder, unspecified; F90.9 Attention-deficit hyperactivity disorder, unspecified type; K21.9 Gastro-esophageal reflux disease without esophagitis; F41.9 Anxiety disorder, unspecified; I95.9 Hypotension, unspecified; Z98.84 Bariatric surgery status; Z87.442 Personal history of urinary calculi; Z90.49 Acquired absence of other specified parts of digestive tract; Z88.1 Allergy status to other antibiotic agents; Z88.0 Allergy status to penicillin; Z82.49 Family history of ischemic heart disease and other diseases of the circulatory system
CPT/HCPCS: 36415; 74019; 74177; 80048; 80053; 81003; 81015; 83605; 83690; 84702; 85025; 85027; 86140; 86850; 86900; 86901; 87086; 99284; A9270-GY; J1170; J1885; J2270; J2405; J2765; Q9967

== ENCOUNTER 2018-04-25 09:10 | Observation (INO) | payer MEDICARE, MEDICAID ==
[2018-04-25] MEDS ORDERED: Thiamine IV 100 MG, Folic Acid IV* 1 MG, Multiple Vitamin IV ADULT* 10 ML in NS 0.9% 10... IV ONE (10:15)
[2018-04-25 10:37] LABS: ABS Basophils 0 10^3/ul (0-0.2); ABS Eosinophils 0.2 10^3/ul (0-0.6); ABS Lymphocytes 2.3 10^3/ul (1.0-4.8); ABS Neutrophils 4.2 10^3/ul (1.5-7.7); ABS Nucleated RBC 0 10^3/ul; Eosinophil % 2.9 % (0-6); Hematocrit 35 % (35-47); Lymphocyte % 29.3 % (25-47); Mean Corpuscular HGB Conc 34 g/dl (31-36); Mean Corpuscular Hemoglobin 31 pg (27-31); Mean Corpuscular Volume 90 fL (80-97); Mean Platelet Volume 8.5 um3 (7.4-10.4); Nucleated Red Blood Cells % 0.1; Platelet Count 198 10^3/ul (150-450); Red Blood Count 3.92 10^6/ul (4.0-5.4); Red Cell Distribution Width 15 % (10.5-15); White Blood Count 7.7 10^3/ul (3.5-10.8)
[2018-04-25 10:47] LABS: INR 0.92 (0.77-1.02)
[2018-04-25 10:55] LABS: EGFR Non-African American 158.4 (>60)
[2018-04-25] MEDS ORDERED: Morphine VIAL* 4 MG/ML VIAL (1 ml vial) IV ONE (10:59)
[2018-04-25] MEDS ORDERED: Ondansetron ODT TAB* 4 MG PO ONE (10:59)
[2018-04-25] MEDS ORDERED: Iohexol 300* (CONTRAST) 10 ML SDV IV ONE (11:22)
--- NOTE | 2018-04-25 12:10 | RAD ---
CLINICAL HISTORY: Diffuse abdominal pain, gastric bypass COMPARISON: March 31, 2018 TECHNIQUE: Multiple contiguous axial CT scans were obtained of the abdomen and pelvis after the administration of intravenous contrast. Coronal and sagittal multiplanar reformations are submitted for review. Oral contrast was administered. Delayed images were obtained through the abdomen. FINDINGS: LUNG BASES: The lung bases are clear. LIVER: The liver is normal in shape, size, contour, and attenuation. BILE DUCTS: There is no intrahepatic or extrahepatic biliary dilatation. GALLBLADDER: The gallbladder is normal, without pericholecystic inflammatory change. PANCREAS: The pancreas is normal, without mass or ductal dilatation. SPLEEN: Normal in size and appearance. UPPER GI TRACT: Evaluation of the gastrointestinal tract is limited by incomplete gastric distention. A gastrostomy is noted. There is postsurgical change to the upper GI tract. SMALL BOWEL AND MESENTERY: The small bowel is similar in appearance to the previous examination. There is no dilatation of transition point to suggest obstruction. COLON: The colon is normal in contour, course, caliber. There is no pericolonic inflammatory change. ADRENALS: Normal bilaterally. KIDNEYS: There is a stable calcification of the left kidney. There is no hydronephrosis. BLADDER: The bladder is smooth in contour. PELVIC ORGANS: The uterus and adnexa are grossly normal for technique. AORTA: The aorta is normal. IVC: Unremarkable LYMPH NODES: There is no lymphadenopathy by size criteria. ABDOMINAL WALL: There is no evidence for abdominal wall hernia. BONES AND SOFT TISSUES: Unremarkable OTHER: There is a small amount of pelvic ascites. IMPRESSION: 1. SMALL AMOUNT OF PELVIC ASCITES. 2. NO SMALL BOWEL DILATATION OR TRANSITION POINT TO SUGGEST OBSTRUCTION.
[2018-04-25] MEDS ORDERED: PROCHLORPERAZINE INJ 5 MG/ML 2 ML VIAL IV ONE (12:12)
[2018-04-25] MEDS ORDERED: Simethicone LIQ* 40 MG/0.6 ML UD ORAL SYRINGE PO ONE (12:16)
--- NOTE | 2018-04-25 12:57 | ED ---
Abdominal Pain/Female - HPI Summary HPI Summary: Patient presents with acute on chronic abdominal pain. She reports she's had 4 ab surgeries, 3 since her Cm-en-Y gastric bypass in 2014. She was doing well for about 3 months after her initial surgery when she developed abdominal pain. She states her intestines were wrapped around a hernia requiring surgical repair. She recovered from this and was good for a while but then developed adhesions that required removal. Most recently, she was seen by Dr. Whitley for a "blockage". Dr. Whitley was able to manage this with fluids and medication and patient did not require any further surgery. She saw him in his office yesterday stating she had abdominal pain. They decided if it got worse she would come in to the ED. Since it has, she is here now. She admits to generalized abdominal pain and nothing makes it better or worse. She's had a reduced appetite over the past few days but is still urinating. She denies dysuria or urinary frequency, flank pain, vaginal discharge. She still has her uterus and ovaries and denies the pain feels like it's coming from these areas. She is s/p appendectomy. Her last BM was 2 days ago and she reports these are typically watery. She is concerned she may have a blockage again. She had a fever 2 days ago however this has resolved - no Tylenol or ibuprofen on board at this time. - History of Current Complaint Chief Complaint: EDAbdPain Stated Complaint: ABD PAIN Time Seen by Provider: 04/25/18 09:37 Hx Obtained From: Patient Pain Intensity: 10 Allergies/Adverse Reactions: Allergies Allergy/AdvReac Type Severity Reaction Status Date / Time cephalexin Allergy Unknown Verified 04/25/18 09:18 Reaction Details penicillin G Allergy Anaphylatic Verified 04/25/18 09:18 Shock Penicillins Allergy Unknown Verified 04/25/18 09:18 Reaction Details PMH/Surg Hx/FS Hx/Imm Hx Previously Healthy: Yes Endocrine/Hematology History: Denies: Hx Anticoagulant Therapy, Hx Blood Disorders, Hx Diabetes Cardiovascular History: Denies: Hx Hypertension, Hx Pacemaker/ICD Respiratory History: Denies: Hx Asthma GI History: Reports: Hx Gastroesophageal Reflux Disease, Hx Hiatal Hernia, Hx Obstructive Bowel, Other GI Disorders - RECENTLY TREATED FOR H PYLORI-09/2015 History: Reports: Hx Kidney Stones Denies: Hx Dialysis, Hx Renal Disease Sensory History: Reports: Hx Contacts or Glasses Denies: Hx Hearing Aid Opthamlomology History: Reports: Hx Contacts or Glasses Neurological History: Reports: Other Neuro Impairments/Disorders - BIPOLAR Psychiatric History: Reports: Hx Anxiety, Hx Attention Deficit Hyperactivity Disorder, Hx Depression, Hx Bipolar Disorder, Other Psychiatric Issues/ Disorders - bipolar Denies: Hx Panic Disorder - Surgical History Surgery Procedure, Year, and Place: GASTRIC BYPASS 10/28/15, TUBES TIED, JOHN, HERNIA REPAIR, laporotomy. Hernia repair and SBO 12/02/17, 12/05/17, 02/06/18 Hx Anesthesia Reactions: No - Immunization History Date of Tetanus Vaccine: UTD per pt Immunizations Up to Date: Yes Infectious Disease History: No Infectious Disease History: Denies: Traveled Outside the [place] in Last 30 Days - Family History Known Family History: Positive: Hypertension Negative: Cardiac Disease - Social History Lives: With Family Alcohol Use: None Hx Substance Use: No Substance Use Type: Reports: None Hx Tobacco Use: No Smoking Status (MU): Never Smoked Tobacco Have You Smoked in the Last Year: No Review of Systems Constitutional: Negative Eyes: Negative ENT: Negative Cardiovascular: Negative Negative: Palpitations, Chest Pain Respiratory: Negative Negative: Shortness Of Breath, Cough Positive: Abdominal Pain. Negative: Vomiting, Diarrhea, Nausea Genitourinary: Negative Musculoskeletal: Negative Skin: Negative Neurological: Negative Positive: Anxious All Other Systems Reviewed And Are Negative: Yes Physical Exam Triage Information Reviewed: Yes Vital Signs On Initial Exam: Initial Vitals Temp Pulse Resp BP Pulse Ox 97.7 F 94 20 118/65 100 04/25/18 09:15 04/25/18 09:15 04/25/18 09:15 04/25/18 09:15 04/25/18 09:15 Vital Signs Reviewed: Yes Appearance: Positive: Well-Appearing - alert, oriented, glascow coma 15, Pain Distress Skin: Positive: Warm, Skin Color Reflects Adequate Perfusion, Dry Head/Face: Positive: Normal Head/Face Inspection Eyes: Positive: Normal, EOMI, Conjunctiva Clear - anicteric sclera ENT: Positive: Normal ENT inspection, Hearing grossly normal, Pharynx normal - mucosa moist Neck: Positive: Supple, Nontender Respiratory/Lung Sounds: Positive: Clear to Auscultation, Breath Sounds Present Cardiovascular: Positive: Normal, RRR, S1, S2 Abdomen Description: Positive: Guarding, Other: - generalized ab TTP - no rebounding Bowel Sounds: Positive: Present Musculoskeletal: Positive: Normal, Strength/ROM Intact Neurological: Positive: Normal, Sensory/Motor Intact, Alert, Oriented to Person Place, Time, CN Intact II-III Psychiatric: Positive: Anxious - concerned but pleasant, polite and cooperative Diagnostics - Vital Signs Vital Signs Temp Pulse Resp BP Pulse Ox 04/25/18 12:09 74 130/77 98 04/25/18 12:00 65 99 04/25/18 11:38 78 122/77 98 04/25/18 11:34 18 04/25/18 11:00 72 96 04/25/18 10:16 77 98 04/25/18 10:14 78 108/67 99 04/25/18 09:15 97.7 F 94 20 118/65 100 - Laboratory Lab Results: Lab Results 04/25/18 04/25/18 04/25/18 Range/Units 10:23 10:23 10:23 WBC 7.7 (3.5-10.8) 10^3/ul RBC 3.92 L (4.0-5.4) 10^6/ul Hgb 12.0 (12.0-16.0) g/dl Hct 35 (35-47) % MCV 90 (80-97) fL MCH 31 (27-31) pg MCHC 34 (31-36) g/dl RDW 15 (10.5-15) % Plt Count 198 (150-450) 10^3/ul MPV 8.5 (7.4-10.4) um3 Neut % (Auto) 54.6 (38-83) % Lymph % (Auto) 29.3 (25-47) % [place] % (Auto) 13.0 H (0-7) % Eos % (Auto) 2.9 (0-6) % Baso % (Auto) 0.2 (0-2) % Absolute Neuts (auto) 4.2 (1.5-7.7) 10^3/ul Absolute Lymphs (auto) 2.3 (1.0-4.8) 10^3/ul Absolute Monos (auto) 1.0 H (0-0.8) 10^3/ul Absolute Eos (auto) 0.2 (0-0.6) 10^3/ul Absolute Basos (auto) 0 (0-0.2) 10^3/ul Absolute Nucleated RBC 0 10^3/ul Nucleated RBC % 0.1 INR (Anticoag Therapy) 0.92 (0.77-1.02) APTT 31.1 (26.0-36.3) seconds Sodium 140 (139-145) mmol/L Potassium 3.7 (3.5-5.0) mmol/L Chloride 107 (101-111) mmol/L Carbon Dioxide 31 (22-32) mmol/L Anion Gap 2 (2-11) mmol/L BUN 9 (6-24) mg/dL Creatinine 0.44 L (0.51-0.95) mg/dL Est GFR ( Amer) 203.7 (>60) Est GFR (Non-Af Amer) 158.4 (>60) BUN/Creatinine Ratio 20.5 H (8-20) Glucose 42 L (70-100) mg/dL Lactic Acid (0.5-2.0) mmol/L Calcium 8.6 (8.6-10.3) mg/dL Magnesium 2.1 (1.9-2.7) mg/dL Total Bilirubin 0.20 (0.2-1.0) mg/dL AST 48 H (13-39) U/L ALT 48 (7-52) U/L Alkaline Phosphatase 114 H (34-104) U/L C-Reactive Protein < 1.00 (< 5.00) mg/L Total Protein 6.2 L (6.4-8.9) g/dL Albumin 3.4 (3.2-5.2) g/dL Globulin 2.8 (2-4) g/dL Albumin/Globulin Ratio 1.2 (1-3) Amylase 66 (29-103) U/L Lipase 60 (11.0-82.0) U/L // Range/Units 10:23 WBC (3.5-10.8) 10^3/ul RBC (4.0-5.4) 10^6/ul Hgb (12.0-16.0) g/dl Hct (35-47) % MCV (80-97) fL MCH (27-31) pg MCHC (31-36) g/dl RDW (10.5-15) % Plt Count (150-450) 10^3/ul MPV (7.4-10.4) um3 Neut % (Auto) (38-83) % Lymph % (Auto) (25-47) % [place] % (Auto) (0-7) % Eos % (Auto) (0-6) % Baso % (Auto) (0-2) % Absolute Neuts (auto) (1.5-7.7) 10^3/ul Absolute Lymphs (auto) (1.0-4.8) 10^3/ul Absolute Monos (auto) (0-0.8) 10^3/ul Absolute Eos (auto) (0-0.6) 10^3/ul Absolute Basos (auto) (0-0.2) 10^3/ul Absolute Nucleated RBC 10^3/ul Nucleated RBC % INR (Anticoag Therapy) (0.77-1.02) APTT (26.0-36.3) seconds Sodium (139-145) mmol/L Potassium (3.5-5.0) mmol/L Chloride (101-111) mmol/L Carbon Dioxide (22-32) mmol/L Anion Gap (2-11) mmol/L BUN (6-24) mg/dL Creatinine (0.51-0.95) mg/dL Est GFR ( Amer) (>60) Est GFR (Non-Af Amer) (>60) BUN/Creatinine Ratio (8-20) Glucose (70-100) mg/dL Lactic Acid 0.9 (0.5-2.0) mmol/L Calcium (8.6-10.3) mg/dL Magnesium (1.9-2.7) mg/dL Total Bilirubin (0.2-1.0) mg/dL AST (13-39) U/L ALT (7-52) U/L Alkaline Phosphatase (34-104) U/L C-Reactive Protein (< 5.00) mg/L Total Protein (6.4-8.9) g/dL Albumin (3.2-5.2) g/dL Globulin (2-4) g/dL Albumin/Globulin Ratio (1-3) Amylase (29-103) U/L Lipase (11.0-82.0) U/L Result Diagrams: 04/25/18 10:23 04/25/18 10:23 Lab Statement: Any lab studies that have been ordered have been reviewed, and results considered in the medical decision making process. Re-Evaluation - Re-Evaluation First Eval Change: Improved - pain improved w/ morphine Second Eval Change: Worse - pt developed pain in upper ab + nausea after drinking contrast - ECG ordered as there is a component of chest pain - denies SOB, jaw pain, arm pain Third Eval Change: Improved - pain and nausea resolved - pt resting comfortably Abdominal Pain Fem Course/Dx - Course Course Of Treatment: Pt w/ complicated ab surgery hx here w/ acute on chronic pain. Follows w/ Dr. Whitley who told her yesterday if her pain was worse to return to ED so pt is here now. Bariatric fluid replacement ordered immediately - w/ pt alert, dextrose was not initially added. Delay in recognition of low glucose as pt was alert and reports h/o low glucose w/o sx. Recheck POC reveals 99 - 25mg dextrose was given and D5 will be added to next IV fluid replacement. CT w/o acute findings. Pt will be admitted for observation by surgery service. Pt in stable condition at time of transition of care. - Diagnoses Provider Diagnoses: Abdominal pain, Bariatric surgery status, Hypoglycemia Discharge - Sign-Out/Discharge Documenting (check all that apply): Discharge/Admit/Transfer - Discharge Plan Condition: Stable Disposition: ADMITTED TO [facility] - Billing Disposition and Condition Condition: STABLE Disposition: Admitted to [facility]
[2018-04-25] MEDS ORDERED: Dextrose 50% Syringe 50 ML* 25 GM/50 ML SYRINGE IV PUSH ONE (14:03)
[2018-04-25] MEDS ORDERED: Dextrose 50% Syringe 50 ML* 25 GM/50 ML SYRINGE ONE (14:04)
[2018-04-25] MEDS ORDERED: Ondansetron ODT TAB* 4 MG SL PRN (14:35)
[2018-04-25] MEDS ORDERED: Bisacodyl SUPP* 10 MG SUPP PR ONE (14:37)
[2018-04-25] MEDS: D5W 1/2 NS KCl 20 Meq 1000 ML* 1,000 ML IV SCH ×2 (15:46→23:15)
[2018-04-25] MEDS: Polyethylene Glycol 3350* 17 GM PACKET PO SCH (20:47)
--- NOTE | 2018-04-25 21:53 | HP ---
CC: [facility]; Bre Boyer NP, [facility] * ADMISSION HISTORY AND PHYSICAL UPDATE: DATE OF ADMISSION: 04/25/18 LOCATION: The patient was seen for admission in the emergency department. ATTENDING SURGEON: Dr. Alejandro Whitley.* (DICTATED BY YINA HORTON) CHIEF COMPLAINT: Abdominal pain. HISTORY OF PRESENT ILLNESS: This is a 42-year-old female status post Cm-en-Y gastric bypass with at least two additional surgeries including laparotomy for bowel obstruction and lysis of adhesions. She also had a gastrostomy tube placed and there is a Tom[place] in place at the present time. She was recently admitted from 03/27/18 to 04/05/18 with symptoms and findings consistent with small bowel obstruction and this was treated nonoperatively. The patient states that, over the past week or so, she has had recurrent intermittent abdominal pain generally in the upper abdomen and worsened after eating. She reports dry heaves, but has still been able to eat and drink. More solid food seemed to exacerbate her symptoms, but her symptoms have continued despite modification in her diet. She has continued to pass some flatus, but states that her last bowel movement was a couple of days ago. She states that her bowels have also been loose since her bariatric surgery. She reports a temperature of 101 at home 2 days ago, but this seems to have since resolved. She denies any symptoms. She was seen by Dr. Whitley at [facility] yesterday in the office and was instructed to present to the ED if symptoms were not resolving. She has received morphine 4 mg as well as prochlorperazine and Zofran in the ED thus far. The remainder of her medical history is unchanged from her last history and physical. PHYSICAL EXAMINATION GENERAL: The patient was seen and examined with Dr. Whitley. She is somewhat somnolent. VITAL SIGNS: Height 5 feet, weight 110 pounds. Temperature 97.7, blood pressure 114/64, pulse 65, respirations 16, room air saturation 96%. HEENT: Pupils equal, round, and reactive. EOMs intact. Conjunctivae pink. Oropharynx: Mucous membranes dry. NECK: No masses or thyromegaly. LUNGS: Clear to auscultation. No rales or wheezes. HEART: Regular rate and rhythm. No murmur noted. ABDOMEN: Well-healed midline incision. Dressing in the left upper quadrant over gastrostomy site. Abdomen is flat and relatively nondistended. Bowel sounds are present and normal in quality. Abdomen is soft with mild-to- moderate tenderness in the mid epigastric region. No peritoneal signs. No palpable masses or organomegaly. GENITALIA: Not done. RECTAL: Not done. BACK: No spinous process or CVA tenderness. EXTREMITIES: No edema. NEUROLOGIC: Grossly intact other than her generalized somnolence. DIAGNOSTIC STUDIES/LAB DATA: Of note, white blood cell count 7700 with normal differential, hemoglobin 12. Electrolytes essentially normal. Blood glucose was 42, repeat 99. BUN and creatinine 9 and 0.44. Lactic acid was normal at 0.9. Amylase, lipase, and liver function tests were normal. CRP is less than 1. CT scan of the abdomen and pelvis with contrast was obtained and reviewed showing some mildly dilated small bowel loops, but contrast at least to the mid distal small bowel without evidence of obstruction. She does have left-sided nephrolithiasis, but without hydronephrosis. IMPRESSION: Recurrent abdominal pain with dehydration. PLAN: Admission for IV hydration, pain control with Toradol, with recheck of labs and plain film of the abdomen in the morning. The patient understands and agrees with the plan. YINA HORTON [id number]/[facility] #: [id number] MTDChai
[2018-04-26] MEDS: Ketorolac INJ* 30 MG/ML 1 ML VIAL IV PUSH PRN ×2 (02:50→09:10)
[2018-04-26 05:44] LABS: ABS Basophils 0 10^3/ul (0-0.2); ABS Eosinophils 0.2 10^3/ul (0-0.6); ABS Lymphocytes 1.7 10^3/ul (1.0-4.8); ABS Monocytes 0.6 10^3/ul (0-0.8); ABS Neutrophils 2.6 10^3/ul (1.5-7.7); ABS Nucleated RBC 0 10^3/ul; Eosinophil % 3.8 % (0-6); Hematocrit 32 % (35-47); Hemoglobin 11.1 g/dl (12.0-16.0); Lymphocyte % 32.6 % (25-47); Mean Corpuscular HGB Conc 35 g/dl (31-36); Mean Corpuscular Hemoglobin 31 pg (27-31); Mean Corpuscular Volume 89 fL (80-97); Mean Platelet Volume 7.3 um3 (7.4-10.4); Nucleated Red Blood Cells % 0; Platelet Count 233 10^3/ul (150-450); Red Cell Distribution Width 14 % (10.5-15); White Blood Count 5.2 10^3/ul (3.5-10.8)
[2018-04-26 06:01] LABS: EGFR Non-African American 171.8 (>60)
[2018-04-26] MEDS: D5W 1/2 NS KCl 20 Meq 1000 ML* 1,000 ML IV SCH (06:35)
[2018-04-26 08:29] VITALS: BP 102/57
--- NOTE | 2018-04-26 09:07 | RAD ---
HISTORY: Abdominal pain COMPARISONS: CT dated April 25, 2018 VIEWS: Frontal supine and upright views of the abdomen. FINDINGS: BOWEL: There is a nonobstructive bowel gas pattern. There is post surgical change to the GI tract. Oral contrast is noted within the colon. CALCULI: There are no abnormal calculi. BONES AND SOFT TISSUES: There are no osseous abnormalities. OTHER FINDINGS: The lung bases are clear. There is no subphrenic gas. IMPRESSION: NONOBSTRUCTIVE BOWEL GAS PATTERN. ORAL CONTRAST REACHES THE COLON.
[2018-04-26] MEDS: Polyethylene Glycol 3350* 17 GM PACKET PO SCH (09:10)
--- NOTE | 2018-04-26 09:14 | PN ---
Progress Note - Progress Note Date of Service: 04/26/18 Note: S: Surgery f/u. States she feels better this a.m. Would like to go home. Has small stool after supp last pm. Has not had Miralax yet (but had discussed use of this on an outpatient basis w/ Dr. Whitley previously). No N/V. O: Vital Signs - 8 hr 04/26/18 04/26/18 04/26/18 03:16 07:35 08:32 Temperature 97.4 F 98.4 F Pulse Rate 66 66 Respiratory 18 16 16 Rate Blood Pressure 90/55 102/57 (mmHg) O2 Sat by Pulse 96 97 Oximetry Intake and Output Last 24 Hours 04/24/18 04/25/18 04/26/18 04/27/18 06:59 06:59 06:59 06:59 Intake Total 2955 Output Total 1999 700 Balance 955 -700 Weight 110 lb Intake: IV Fluids 2955 D5W 1/2 NS 20 meq KCL 1970 Thiamione 985 Oral 0 Output: Urine 1999 700 Gen: NAD Heart: reg Lungs: clear Abd: flat, nondistended; +BS; soft; no sig tenderness AXR: contrast in colon A: acute on chronic abd pain, improved P: home today; cont Miralax as outpt; office f/u w/ Dr. Whitley in 2 wks.
--- NOTE | 2018-04-27 03:37 | DS ---
CC: Bre Boyer NP * DISCHARGE SUMMARY: DATE OF ADMISSION: 04/25/18 DATE OF DISCHARGE: 04/26/18 ATTENDING SURGEON: Dr. Alejandro Whitley.* (DICTATED BY YINA HORTON) HOSPITAL COURSE: The patient was admitted on 04/25/18 for acute on chronic abdominal pain. Her workup included relatively normal lab work with a CT scan that showed no evidence of obstruction.Contrast, however, at that time was only in the mid to distal small bowel. The patient was treated by keeping her n.p.o. , IV fluid hydration and Toradol p.r.n. for pain. As of the morning of discharge, she feels better. She did have a bowel movement after Dulcolax suppository. She has not yet received any MiraLAX (though had discussed with Dr. Joseph the use of maintenance MiraLAX as an outpatient). Abdominal film the morning of discharge showed contrast in the colon. The patient's abdominal exam was fairly benign with no significant tenderness or distention. IMPRESSION: Acute on chronic abdominal pain, possibly colonic obstipation. PLAN: Clear liquids and if tolerated, home today. She is encouraged to continue with MiraLAX on a twice daily basis for the next couple of weeks as a trial with followup by Dr. Whitley at [facility] in 2 weeks. YINA HORTON [id number]/[facility] #: [id number] MTDD
== END 2018-04-26 09:50 | disposition home or self-care (01) ==
LOC: ED 09:10 → SSU 14:03
PROVIDERS: ADMIT Surgery; ATTEND Surgery
DX: R10.9 Unspecified abdominal pain (principal); G89.29 Other chronic pain; Z98.84 Bariatric surgery status; E16.2 Hypoglycemia, unspecified; F41.9 Anxiety disorder, unspecified; R18.8 Other ascites
CPT/HCPCS: 36415; 74019; 74177; 80048; 80053; 82150; 83605; 83690; 83735; 85025; 85610; 85730; 86140; 93005; 96374; 96375; 99283; A9270-GY; G0378; J0780; J1885; J2270; J3411; Q9967

== ENCOUNTER 2018-06-04 15:54 | Inpatient (IN) | payer MEDICARE ==
[2018-06-04 17:07] LABS: ABS Basophils 0.1 10^3/ul (0-0.2); ABS Eosinophils 0.1 10^3/ul (0-0.6); ABS Lymphocytes 2.3 10^3/ul (1.0-4.8); ABS Monocytes 0.8 10^3/ul (0-0.8); ABS Neutrophils 4.5 10^3/ul (1.5-7.7); ABS Nucleated RBC 0 10^3/ul; Eosinophil % 1.9 % (0-6); Hematocrit 37 % (35-47); Hemoglobin 12.6 g/dl (12.0-16.0); Lymphocyte % 29.2 % (25-47); Mean Corpuscular HGB Conc 34 g/dl (31-36); Mean Corpuscular Hemoglobin 31 pg (27-31); Mean Corpuscular Volume 92 fL (80-97); Mean Platelet Volume 7.3 um3 (7.4-10.4); Nucleated Red Blood Cells % 0; Platelet Count 246 10^3/ul (150-450); Red Blood Count 4.04 10^6/ul (4.00-5.40); Red Cell Distribution Width 15 % (10.5-15); White Blood Count 7.8 10^3/ul (3.5-10.8)
[2018-06-04 17:26] LABS: EGFR Non-African American 116.9 (>60)
--- NOTE | 2018-06-04 19:01 | RAD ---
INDICATION: Abdominal distention COMPARISON: April 26, 2018 TECHNIQUE: A single view of the abdomen is submitted. FINDINGS: Bones: There are no acute bony findings. Soft tissues: There are postoperative changes in the epigastric region and left upper quadrant related to prior bowel surgery. Bowel gas pattern: There is moderate stool. There are no findings of obstruction Calcifications: There are no abnormal calcifications. Other: None IMPRESSION: POSTOPERATIVE CHANGE. MODERATE STOOL.
[2018-06-04] MEDS ORDERED: HYDROmorphone INJ* 2 MG/ML CARPUJECT SYRINGE IV SLOW PU ONE (19:08)
[2018-06-04] MEDS ORDERED: Ondansetron INJ* 2 MG/ML VIAL IV ONE (19:09)
--- NOTE | 2018-06-04 19:25 | ED ---
Abdominal Pain/Female - HPI Summary HPI Summary: This is jai Umanzor documenting for attending physician Don Bean M.D. Pt is a 43 y/o F w/ c/o left-sided abdominal pain onsetting three days ago. Pain worsened over weekend since onset and pain is rated 10/10 on triage. She denies recent gas and bowel movements and describes abdomen as feeling bloated. She is also experiencing chills. Pt notes morphine makes her nauseous. She has Hx of getting abdominal fluid drained. - History of Current Complaint Chief Complaint: EDAbdPain Stated Complaint: ABD PAIN Time Seen by Provider: 06/04/18 19:03 Hx Obtained From: Patient Onset/Duration: Lasting Days - 3 days Timing: Constant Severity Currently: Severe Pain Intensity: 10 Pain Scale Used: 0-10 Numeric - 10/10 Location: Diffuse - described as left-sided Radiates: No Aggravating Factor(s): Nothing Alleviating Factor(s): Nothing Associated Signs and Symptoms: Positive: Other: - POSITIVE: "bloated feeling", chills Allergies/Adverse Reactions: Allergies Allergy/AdvReac Type Severity Reaction Status Date / Time cephalexin Allergy Unknown Verified 04/25/18 09:18 Reaction Details penicillin G Allergy Anaphylatic Verified 04/25/18 09:18 Shock Penicillins Allergy Unknown Verified 04/25/18 09:18 Reaction Details PMH/Surg Hx/FS Hx/Imm Hx Endocrine/Hematology History: Denies: Hx Anticoagulant Therapy, Hx Blood Disorders, Hx Diabetes Cardiovascular History: Denies: Hx Hypertension, Hx Pacemaker/ICD Respiratory History: Denies: Hx Asthma GI History: Reports: Hx Hiatal Hernia, Hx Obstructive Bowel, Other GI Disorders - RECENTLY TREATED FOR H PYLORI-09/2015 Denies: Hx Gastroesophageal Reflux Disease History: Reports: Hx Kidney Stones Denies: Hx Dialysis, Hx Renal Disease Sensory History: Reports: Hx Contacts or Glasses Denies: Hx Hearing Aid Opthamlomology History: Reports: Hx Contacts or Glasses Neurological History: Denies: Other Neuro Impairments/Disorders Psychiatric History: Reports: Hx Anxiety, Hx Attention Deficit Hyperactivity Disorder, Hx Depression, Hx Bipolar Disorder, Other Psychiatric Issues/ Disorders - bipolar Denies: Hx Panic Disorder - Surgical History Surgery Procedure, Year, and Place: GASTRIC BYPASS 10/28/15, TUBES TIED, JOHN, HERNIA REPAIR, laporotomy. Hernia repair and SBO 12/02/17, 12/05/17, 02/06/18 Hx Anesthesia Reactions: No - Immunization History Date of Tetanus Vaccine: UTD per pt Infectious Disease History: No Infectious Disease History: Denies: Traveled Outside the [place] in Last 30 Days - Family History Known Family History: Positive: Hypertension Negative: Cardiac Disease - Social History Alcohol Use: None Hx Substance Use: No Substance Use Type: Reports: None Hx Tobacco Use: No Smoking Status (MU): Never Smoked Tobacco Have You Smoked in the Last Year: No Review of Systems Positive: Chills Positive: Abdominal Pain - left sided, Other - "bloated feeling" All Other Systems Reviewed And Are Negative: Yes Physical Exam - Summary Physical Exam Summary: Appearance: Looks dehydrated, lying in bed comfortably Skin: Warm, dry, no obvious rash Eyes: sclera anicteric, no conjunctival pallor ENT: mucous membranes moist, pharynx appears normal Neck: Supple, nontender Respiratory: Clear to auscultation, no signs of respiratory distress Cardiovascular: Normal S1, S2. No murmurs. Normal distal pulses in tibial and radial bilaterally. Abdomen: Soft, left-sided abdominal tenderness, normal active bowel sounds present Musculoskeletal: Normal, Strength/ROM Intact Neurological: A&Ox3, awake and alert, mentation is normal, speech is fluent and appropriate Psychiatric: affect is normal, does not appear anxious or depressed Triage Information Reviewed: Yes Vital Signs On Initial Exam: Initial Vitals Temp Pulse Resp BP Pulse Ox 98.7 F 86 18 105/69 99 06/04/18 16:05 06/04/18 16:05 06/04/18 16:05 06/04/18 16:05 06/04/18 16:05 Vital Signs Reviewed: Yes Diagnostics - Vital Signs Vital Signs Temp Pulse Resp BP Pulse Ox 06/04/18 19:18 18 06/04/18 19:00 74 100 06/04/18 18:47 68 100 06/04/18 17:39 77 18 131/82 06/04/18 16:05 98.7 F 86 18 105/69 99 - Laboratory Lab Results: Lab Results 06/04/18 06/04/18 06/04/18 Range/Units 16:54 16:55 16:55 WBC 7.8 (3.5-10.8) 10^3/ul RBC 4.04 (4.00-5.40) 10^6/ul Hgb 12.6 (12.0-16.0) g/dl Hct 37 (35-47) % MCV 92 (80-97) fL MCH 31 (27-31) pg MCHC 34 (31-36) g/dl RDW 15 (10.5-15) % Plt Count 246 (150-450) 10^3/ul MPV 7.3 L (7.4-10.4) um3 Neut % (Auto) 57.6 (38-83) % Lymph % (Auto) 29.2 (25-47) % [place] % (Auto) 10.0 H (0-7) % Eos % (Auto) 1.9 (0-6) % Baso % (Auto) 1.3 (0-2) % Absolute Neuts (auto) 4.5 (1.5-7.7) 10^3/ul Absolute Lymphs (auto) 2.3 (1.0-4.8) 10^3/ul Absolute Monos (auto) 0.8 (0-0.8) 10^3/ul Absolute Eos (auto) 0.1 (0-0.6) 10^3/ul Absolute Basos (auto) 0.1 (0-0.2) 10^3/ul Absolute Nucleated RBC 0 10^3/ul Nucleated RBC % 0 Sodium 140 (135-145) mmol/L Potassium 4.3 (3.5-5.0) mmol/L Chloride 109 (101-111) mmol/L Carbon Dioxide 26 (22-32) mmol/L Anion Gap 5 (2-11) mmol/L BUN 13 (6-24) mg/dL Creatinine 0.57 (0.51-0.95) mg/dL Est GFR ( Amer) 141.4 (>60) Est GFR (Non-Af Amer) 116.9 (>60) BUN/Creatinine Ratio 22.8 H (8-20) Glucose 84 (70-100) mg/dL Lactic Acid 0.6 (0.5-2.0) mmol/L Calcium 8.5 L (8.6-10.3) mg/dL Total Bilirubin 0.20 (0.2-1.0) mg/dL AST 15 (13-39) U/L ALT 15 (7-52) U/L Alkaline Phosphatase 97 (34-104) U/L C-Reactive Protein < 1.00 (<8.01) mg/L Total Protein 6.8 (6.4-8.9) g/dL Albumin 4.0 (3.2-5.2) g/dL Globulin 2.8 (2-4) g/dL Albumin/Globulin Ratio 1.4 (1-3) Lipase 56 (11.0-82.0) U/L Beta HCG, Quant < 0.60 mIU/mL Result Diagrams: 06/06/18 06:40 06/06/18 06:40 Lab Statement: Any lab studies that have been ordered have been reviewed, and results considered in the medical decision making process. - Radiology Abdomen X-ray Xray Interpretation: No Acute Changes Radiology Interpretation Completed By: Radiologist - Postoperative change. Moderate stool - CT CT abd/pel CT Interpretation: No Acute Changes CT Interpretation Completed By: Radiologist - No acute intra-abdominal findings. This report was reviewed by ED physician. Re-Evaluation - Re-Evaluation First Eval Re-Evaluation Time: 21:57 Comment: Discussed tests and results with patient Abdominal Pain Fem Course/Dx - Diagnoses Differential Diagnosis: Positive: Constipation. Negative: Abdominal Aortic Aneurysm, Appendicitis, Bowel Obstruction, Gall Bladder Disease Provider Diagnoses: Abdominal pain - Provider Notifications Discussed Care Of Patient With: Alejandro Whitley Time Discussed With Above Provider: 21:24 Instructed by Provider To: Other - 21:24 - discussed care of patient with Dr. Whitley, decided to wait for CT scan results before decision. 22:00 - consult with Dr. Whitley, admit to [facility]. Discharge - Sign-Out/Discharge Documenting (check all that apply): Patient Departure - Discharge Plan Condition: Good Disposition: ADMITTED TO [facility] - Billing Disposition and Condition Condition: GOOD Disposition: Admitted to [facility]
[2018-06-04] MEDS ORDERED: Iohexol 300* (CONTRAST) 10 ML SDV IV ONE (19:47)
[2018-06-04] MEDS ORDERED: busPIRone TAB* 10 MG PO PRN (22:00)
[2018-06-05] MEDS: Ketorolac INJ* 30 MG/ML 1 ML VIAL IV PRN ×3 (00:17→12:25)
[2018-06-05] MEDS: Polyethylene Glycol 3350* 17 GM PACKET PO SCH ×3 (00:39→21:54)
[2018-06-05] MEDS: lamoTRIgine TAB(*) 100 MG PO SCH ×3 (00:40→21:55)
[2018-06-05] MEDS: lamoTRIgine TAB(*) 25 MG PO SCH ×3 (00:41→21:56)
[2018-06-05] MEDS: QUEtiapine TAB* 100 MG PO SCH ×2 (00:42→21:56)
[2018-06-05] MEDS: HYDROmorphone INJ* 0.5 MG/0.5 ML SYRINGE IV PRN ×2 (00:49→16:21)
--- NOTE | 2018-06-05 07:38 | RAD ---
Indication: Left-sided abdominal pain, bowel obstruction Contrast: Administered 72.2 ml of OMNIPAQUE 300 mg/ml CT of the abdomen and pelvis was performed after oral and IV contrast administration. Coronal and sagittal reconstructed images were obtained. Comparison is made with previous exam dated April 25, 2018. Lung bases demonstrate no pleural fluid, nodules or masses. Heart is of normal size without evidence of pericardial effusion. The liver is normal in size. No focal lesions or intrahepatic duct dilatation is noted. The spleen is normal in size. Patient is status post cholecystectomy. Prominent common duct is noted. No abrupt termination of the common duct is noted. The pancreas demonstrates no mass or pancreatic duct dilatation. No adrenal masses are noted. The kidneys demonstrate symmetric nephrograms without focal lesions. Probable calcifications are noted in the inferior lower pole of the left kidney. No dilated loops of bowel are noted. Air distended colon is noted. Patient is status post gastric bypass surgery with moderate distention of small bowel. The urinary bladder is unremarkable. The uterus is prominent in size. There is likely right ovarian cyst measuring up to 2.3 cm. The uterus is otherwise unremarkable. The bony structures are otherwise unremarkable. IMPRESSION: Patient status post gastric bypass surgery. There is air distended colon noted. Right ovarian cyst measuring up to 2.3 cm is noted. Small amount of ascites is present. No significant change is noted since April 25, 2018.
[2018-06-05] MEDS ORDERED: oxyCODONE/Acetamin 5/325 MG* TAB ONE (07:55)
[2018-06-05] MEDS: Amphetamine MIXED SALT TAB* 10 MG TAB PO SCH ×2 (08:00→13:06)
[2018-06-05] MEDS ORDERED: Bisacodyl SUPP* 10 MG SUPP PR ONE (09:53)
--- NOTE | 2018-06-05 09:58 | PN ---
Progress Note - Progress Note Date of Service: 06/05/18 SOAP: Subjective: Pt seen and examined. some abdopain, less distension. Objective: af vss, P 90s lungs clear abdo: mild distension, tender on R w/o rebound gastrostomy : bilious output 550cc ext : mild swelling, non-pitting Laboratory Results - last 24 hr 06/04/18 06/04/18 06/04/18 16:54 16:55 16:55 WBC 7.8 RBC 4.04 Hgb 12.6 Hct 37 MCV 92 MCH 31 MCHC 34 RDW 15 Plt Count 246 MPV 7.3 L Neut % (Auto) 57.6 Lymph % (Auto) 29.2 Leon % (Auto) 10.0 H Eos % (Auto) 1.9 Baso % (Auto) 1.3 Absolute Neuts (auto) 4.5 Absolute Lymphs (auto) 2.3 Absolute Monos (auto) 0.8 Absolute Eos (auto) 0.1 Absolute Basos (auto) 0.1 Absolute Nucleated RBC 0 Nucleated RBC % 0 Sodium 140 Potassium 4.3 Chloride 109 Carbon Dioxide 26 Anion Gap 5 BUN 13 Creatinine 0.57 Est GFR ( Amer) 141.4 Est GFR (Non-Af Amer) 116.9 BUN/Creatinine Ratio 22.8 H Glucose 84 Lactic Acid 0.6 Calcium 8.5 L Total Bilirubin 0.20 AST 15 ALT 15 Alkaline Phosphatase 97 C-Reactive Protein < 1.00 Total Protein 6.8 Albumin 4.0 Globulin 2.8 Albumin/Globulin Ratio 1.4 Lipase 56 Beta HCG, Quant < 0.60 06/05/18 06:29 WBC RBC Hgb Hct MCV MCH MCHC RDW Plt Count MPV Neut % (Auto) Lymph % (Auto) [place] % (Auto) Eos % (Auto) Baso % (Auto) Absolute Neuts (auto) Absolute Lymphs (auto) Absolute Monos (auto) Absolute Eos (auto) Absolute Basos (auto) Absolute Nucleated RBC Nucleated RBC % Sodium 138 Potassium 3.6 Chloride 109 Carbon Dioxide 26 Anion Gap 3 BUN 10 Creatinine 0.47 L Est GFR ( Amer) 176.7 Est GFR (Non-Af Amer) 146.0 BUN/Creatinine Ratio 21.3 H Glucose 78 Lactic Acid Calcium 8.1 L Total Bilirubin 0.30 AST 13 ALT 13 Alkaline Phosphatase 87 C-Reactive Protein Total Protein 5.0 L Albumin 2.9 L Globulin 2.1 Albumin/Globulin Ratio 1.4 Lipase Beta HCG, Quant CT reviewed. dissended LB, mildly distended SB Assessment: constipation vs ileus consider possibility of lower GI lesion, vs IBS vs celiac Plan: IVF oral diet pain control suppository GI consult
[2018-06-05] MEDS: cloNIDine TAB* 0.1 MG PO SCH ×2 (10:01→21:55)
[2018-06-05] MEDS: ARIPiprazole TAB* 2 MG PO SCH (10:01)
[2018-06-05] MEDS: oxyCODONE/Acetamin 5/325 MG* TAB PO PRN ×2 (12:10→20:22)
[2018-06-05] MEDS: Ketorolac INJ* 30 MG/ML 1 ML VIAL IV SCH ×2 (17:07→23:23)
--- NOTE | 2018-06-06 02:04 | CONS ---
GASTROENTEROLOGY CONSULTATION REPORT: DATE: 06/05/18 CONSULTING PHYSICIANS: Alejandro Whitley; Bre Boyer NP REASON FOR CONSULTATION: Recurring episodes of abdominal pain with imaging showing colonic distention since a series of operations November and January 2018 leaving the patient with a G-tube for nutrition and lysis of multiple adhesions. HISTORY OF PRESENT ILLNESS: This 43-year-old woman with bipolar disorder and morbid obesity, who underwent gastric bypass in October 2015 ended up losing too much weight, getting down to 96 pounds by spring. At that time, she was in [place] and states she could not find a bariatric surgeon, who would accept her case for supervision. She therefore moved back to [facility]. At that time, she was weighing about 100 pounds and labs ordered by Dr. Whitley showed hemoglobin 10.5, hematocrit 33, MCV 80, albumin 3.8, LFTs normal, ferritin less than 10, B12 993. She developed some recurring abdominal pain and was admitted here in November with imaging showing a probable internal hernia with abnormality of the portal vein. She had surgery with reduction of the internal hernia and then 3 days later, reexploration for findings of peritonitis and a small hole in the jejunum that was repaired. Two months later, in January 2018, she had more acute abdominal pain and was reexplored by Dr. Whitley. Extensive adhesions were lysed, empiric appendectomy done and a G-tube that had been placed [address]. She did have a small wound infection with one of those surgeries. Since that time, she has had 4 emergency room presentations with an increase in abdominal pain. She has been afebrile with those with a normal white count and CRPs have been uniformly under 1. The most recent admission, 04/25/18 at discharge was labelled as acute on chronic abdominal pain, possibly colonic obstipation. Several imaging studies have shown diffuse distention of the colon with gas. An upper GI small bowel follow-through as an outpatient, 05/10/18, was interpreted as showing mild distention of proximal mid small bowel, transit time was 4 hours. PAST MEDICAL HISTORY: 1. Morbid obesity - her maximum weight was 240 and she did not have any metabolic complications such as diabetes or hypertension. 2. Status post cholecystectomy, remote past. 3. Status post appendectomy. 4. History of renal stones. 5. Status post bariatric bypass. 6. Repair of bariatric internal hernia and subsequent 2 further surgeries within 2 months. 7. Bipolar disorder - she states treatment was started at age 14 and around age 22, she had lithium toxicity and was taken off that. Most recently, she has been followed at a clinic in [place] by Dr. Lawrence, who just a month ago, moved out of town. MEDICATIONS: She has therefore been on the current list of medications: 1. Lamictal. 2. Clonidine. 3. BuSpar. 4. Seroquel. 5. Abilify. 6. Adderall for a number of years. She states she avoids pain medicines since they "slow the whole system down." SOCIAL HISTORY: She has multiple family members in [place] including 3 kids and 4 grandchildren. She is a nonsmoker. She denies IV drug use. Her mother lives in this area and is a frequent visitor at the hospital with her. REVIEW OF SYSTEMS: She has a history of iron deficiency recently and has been receiving iron infusions since November 2017, provided by Dr. Coates. No history of hemoptysis, TB, seizure, NV, syncope, hepatitis or recent fall or fracture. She denies chewing gum or having breath mints or hard candy. PHYSICAL EXAM: She is a middle-aged woman, in hospital bed, with an IV, in no distress. She is afebrile. She has no adenopathy. She is anicteric. Her lungs are clear. Heart sounds are regular. The abdomen is remarkable for a long midline scar and a left upper quadrant G-tube. There is no leakage around the G-tube. The skin appears healthy. Bowel sounds are normal. The abdomen is neither soft nor firm. Has diffuse tenderness to deep palpation, but nothing particularly focal and no involuntary guarding. Perianal inspection is normal and rectal revealed average tone and smooth rectal mucosa with no specimen whatsoever. Legs are unremarkable. There is no edema. IMPRESSION: This 43-year-old woman, who has lost 120 pounds after bariatric bypass, had a period of overshoot where she got down to 100 pounds and then since moving back here a year ago, she has regained 20 using a G tube. During that time, her nutrition has been apparently good as her hemoglobin has risen back to the normal range of 12.6, her albumin is still just 2.9. Her frequent complaints of abdominal pain had been accompanied by varying radiologic abnormalities including an upper GI stating her small bowel emptying was delayed and then other x-rays where the small bowel appears normal and comments were made about distention of the colon. There is no consistent trend and at this point, the current plan does not include reexploration and I agree with that. Possibly, most useful will be working up individual remaining issues to see if that will result in enhanced sense of energy and well being and in the course of that, come upon other olson features. First that would most practically involve endoscopy looking for celiac disease or an anastomotic ulcer that might be engendering pain and/or aerophagia. The observation of colonic distention with air certainly is against any significant obstructive process up above and suggest functional symptoms will be frequent. The lack of fever and repeatedly normal CRP as against any kind of inflammatory process. [id number]/[facility] #: [id number] MTDChai
[2018-06-06] MEDS: oxyCODONE/Acetamin 5/325 MG* TAB PO PRN ×4 (02:29→21:49)
[2018-06-06] MEDS: HYDROmorphone INJ* 0.5 MG/0.5 ML SYRINGE IV PRN (03:33)
[2018-06-06] MEDS: Ketorolac INJ* 30 MG/ML 1 ML VIAL IV SCH ×4 (05:01→19:20)
[2018-06-06 07:03] LABS: ABS Basophils 0 10^3/ul (0-0.2); ABS Eosinophils 0.2 10^3/ul (0-0.6); ABS Lymphocytes 2.3 10^3/ul (1.0-4.8); ABS Monocytes 0.6 10^3/ul (0-0.8); ABS Neutrophils 2.1 10^3/ul (1.5-7.7); ABS Nucleated RBC 0 10^3/ul; Hematocrit 31 % (35-47); Hemoglobin 10.7 g/dl (12.0-16.0); Lymphocyte % 43.4 % (25-47); Mean Corpuscular HGB Conc 35 g/dl (31-36); Mean Corpuscular Hemoglobin 32 pg (27-31); Mean Corpuscular Volume 91 fL (80-97); Mean Platelet Volume 7.6 um3 (7.4-10.4); Nucleated Red Blood Cells % 0; Platelet Count 172 10^3/ul (150-450); Red Blood Count 3.36 10^6/ul (4.00-5.40); Red Cell Distribution Width 15 % (10.5-15); White Blood Count 5.2 10^3/ul (3.5-10.8)
[2018-06-06 07:20] LABS: EGFR Non-African American 153.5 (>60)
[2018-06-06] MEDS: Amphetamine MIXED SALT TAB* 10 MG TAB PO SCH ×2 (07:43→13:07)
[2018-06-06] MEDS: Polyethylene Glycol 3350* 17 GM PACKET PO SCH (09:42)
[2018-06-06] MEDS: lamoTRIgine TAB(*) 100 MG PO SCH ×2 (09:43→21:49)
[2018-06-06] MEDS: cloNIDine TAB* 0.1 MG PO SCH ×2 (09:43→21:49)
[2018-06-06] MEDS: lamoTRIgine TAB(*) 25 MG PO SCH ×2 (09:43→21:49)
[2018-06-06] MEDS: ARIPiprazole TAB* 2 MG PO SCH (09:44)
[2018-06-06] MEDS ORDERED: Midazolam* 1 MG/ML 10 ML VIAL (10 MG) ONE (16:59)
[2018-06-06] MEDS ORDERED: fentaNYL* 50 MCG/ML 2 ML VIAL (100 MCG VIAL) ONE (16:59)
[2018-06-06] MEDS ORDERED: PEG 3000 GI LAVAGE* 1 GALLON PO ONE (20:00)
--- NOTE | 2018-06-06 20:41 | PN ---
Progress Note - Progress Note Date of Service: 06/06/18 - Gastroenterology Note: Patient seen and examined. No new overnight events. Abdominal pain slightly improved. No nausea/emesis. No bowel movement over the last two days. No rectal bleeding. Vital Signs: Temp Pulse Resp BP Pulse Ox 99.0 F 87 20 118/70 100 06/06/18 19:08 06/06/18 19:06 06/06/18 19:26 06/06/18 19:06 06/06/18 19:06 Physical examination: General: NAD, AAOx3. CV:RRR. PULM: CTAB. ABDOMEN: Soft, BS x 4, non-tender and non-distended. No R/G/R. Cathetar in place in abdomen with small amount of bilious drainage. EXT: No edema in lower extremities. Laboratory Last Values WBC 5.2 10^3/ul (3.5-10.8) 06/06/18 06:40 RBC 3.36 10^6/ul (4.00-5.40) L 06/06/18 06:40 Hgb 10.7 g/dl (12.0-16.0) L 06/06/18 06:40 Hct 31 % (35-47) L 06/06/18 06:40 MCV 91 fL (80-97) 06/06/18 06:40 MCH 32 pg (27-31) H 06/06/18 06:40 MCHC 35 g/dl (31-36) 06/06/18 06:40 RDW 15 % (10.5-15) 06/06/18 06:40 Plt Count 172 10^3/ul (150-450) 06/06/18 06:40 MPV 7.6 um3 (7.4-10.4) 06/06/18 06:40 Neut % (Auto) 40.1 % (38-83) 06/06/18 06:40 Lymph % (Auto) 43.4 % (25-47) 06/06/18 06:40 [place] % (Auto) 11.8 % (0-7) H 06/06/18 06:40 Eos % (Auto) 4.0 % (0-6) 06/06/18 06:40 Baso % (Auto) 0.7 % (0-2) 06/06/18 06:40 Absolute Neuts (auto) 2.1 10^3/ul (1.5-7.7) 06/06/18 06:40 Absolute Lymphs (auto) 2.3 10^3/ul (1.0-4.8) 06/06/18 06:40 Absolute Monos (auto) 0.6 10^3/ul (0-0.8) 06/06/18 06:40 Absolute Eos (auto) 0.2 10^3/ul (0-0.6) 06/06/18 06:40 Absolute Basos (auto) 0 10^3/ul (0-0.2) 06/06/18 06:40 Absolute Nucleated RBC 0 10^3/ul 06/06/18 06:40 Nucleated RBC % 0 06/06/18 06:40 Sodium 138 mmol/L (135-145) 06/06/18 06:40 Potassium 3.9 mmol/L (3.5-5.0) 06/06/18 06:40 Chloride 109 mmol/L (101-111) 06/06/18 06:40 Carbon Dioxide 24 mmol/L (22-32) 06/06/18 06:40 Anion Gap 5 mmol/L (2-11) 06/06/18 06:40 BUN 5 mg/dL (6-24) L 06/06/18 06:40 Creatinine 0.45 mg/dL (0.51-0.95) L 06/06/18 06:40 Est GFR ( Amer) 185.8 (>60) 06/06/18 06:40 Est GFR (Non-Af Amer) 153.5 (>60) 06/06/18 06:40 BUN/Creatinine Ratio 11.1 (8-20) 06/06/18 06:40 Glucose 79 mg/dL (70-100) 06/06/18 06:40 Lactic Acid 0.6 mmol/L (0.5-2.0) 06/04/18 16:55 Calcium 8.1 mg/dL (8.6-10.3) L 06/06/18 06:40 Total Bilirubin 0.30 mg/dL (0.2-1.0) 06/06/18 06:40 AST 12 U/L (13-39) L 06/06/18 06:40 ALT 13 U/L (7-52) 06/06/18 06:40 Alkaline Phosphatase 87 U/L (34-104) 06/06/18 06:40 C-Reactive Protein < 1.00 mg/L (<8.01) 06/04/18 16:54 Total Protein 5.1 g/dL (6.4-8.9) L 06/06/18 06:40 Albumin 2.8 g/dL (3.2-5.2) L 06/06/18 06:40 Globulin 2.3 g/dL (2-4) 06/06/18 06:40 Albumin/Globulin Ratio 1.2 (1-3) 06/06/18 06:40 Lipase 56 U/L (11.0-82.0) 06/04/18 16:54 Beta HCG, Quant < 0.60 mIU/mL 06/04/18 16:54 A/P: 43 yo female with multiple abdominal surgeries, including gastric bypass, G -tube for malnutrition, and recent small bowel obstructions who presented with acute on chronic abdominal pain. CT A/P revealed stool and some distention in the colon which has since improved throughout patient's hospital course. Surgery consulted Gastroenterology for further evaluation. 1. Acute on chronic abdominal pain - slightly improved. ~EGD today was essentially unremarkable. Bx pending. ~Discussed case with Dr. Whitley. Will plan for a colonoscopy tomorrow to evaluate for possible lower GI lesion. If patient is unable to tolerate prep due to possible ileus, will consider Flex-sig instead. Please call with any questions or concerns. Francheska Santana D.O.
--- NOTE | 2018-06-06 20:53 | PN ---
Progress Note - Progress Note Date of Service: 06/06/18 SOAP: Subjective: Pt seen and examined. Still with abdo pain minimal appetite Objective: af vss g tube output 275 bilious at last shift lungs clear abdo: soft/ less distended/ tender without rebound no hernia ext wnl Assessment: HD 3 abdo pain; colonic ileus Plan: EGD today pain control continue workup
[2018-06-07] MEDS: Ketorolac INJ* 30 MG/ML 1 ML VIAL IV SCH ×3 (00:20→12:47)
[2018-06-07] MEDS: HYDROmorphone INJ* 0.5 MG/0.5 ML SYRINGE IV PRN ×3 (00:51→20:29)
[2018-06-07] MEDS: QUEtiapine TAB* 100 MG PO SCH ×2 (01:04→21:07)
[2018-06-07] MEDS ORDERED: Ondansetron ODT TAB* 4 MG PO PRN (03:05)
[2018-06-07] MEDS ORDERED: Ondansetron ODT TAB* 4 MG ONE (03:15)
[2018-06-07] MEDS: oxyCODONE/Acetamin 5/325 MG* TAB PO PRN ×3 (03:20→17:30)
--- NOTE | 2018-06-07 03:58 | PRO ---
CC: Andi Boyer NP; Dr. Alejandro Whitley * GASTROENTEROLOGY OPERATIVE REPORT: DATE OF PROCEDURE: 06/06/18 - ROOM #350 OPERATIVE PROCEDURE: Esophagogastroduodenoscopy to efferent limb. LIQUID LOADER: Francheska Santana DO ANESTHESIA: 1. Midazolam 6 mg IV. 2. Fentanyl 100 mcg IV. HISTORY OF PRESENT ILLNESS: Ramses is a pleasant 43-year-old female with a history of multiple abdominal surgeries and frequent small bowel obstructions, who presented with a recurrent admission for abdominal pain and found to have a new colonic ileus. She had a CT of the abdomen performed on admission revealing moderate stool in the colon. Gastroenterology was consulted for further evaluation. PREOPERATIVE DIAGNOSIS: 1. Acute on chronic abdominal pain. POSTOPERATIVE DIAGNOSES: 1. Normal-appearing blind pouch with normal-appearing efferent loop with biopsies. 2. Normal-appearing gastric remnant with CLOtest to rule out H. pylori. 3. Normal mid and proximal esophagus. 4. Irregular-appearing gastroesophageal junction at 35 cm from the incisors with biopsies. RECOMMENDATIONS: 1. We will proceed forward with a colonoscopy tomorrow. Case was discussed with Dr. Whitley and he is in agreement with proceeding forward with the procedure. Risks and benefits of the procedure as well as the colonoscopy preparation were discussed with the patient and she is in agreement with proceeding forward. 2. We will follow up with path results from upper endoscopy. 3. Further recommendations will be provided as the patient's clinical course progresses. DESCRIPTION OF PROCEDURE: Esophagogastroduodenoscopy was explained in detail to the patient. The risks, benefits, complications, alternatives, and possibilities of missed lesions were explained and understood. Complications included, but were not limited to, reaction to anesthesia, aspiration, increased risk of bleeding, infection, and perforation. All questions were answered. The patient demonstrated understanding of the conversation. Informed consent was obtained. Next, the patient was brought to the endoscopy suite and placed in the left lateral recumbent position where blood pressure, cardiac, and oxygen monitors were applied. The patient was found to be a fit candidate for moderate anesthesia. After adequate IV sedation was achieved, a bite-block was placed. Next, a standard adult Olympus endoscope was inserted per os under direct visualization to the blind pouch as well as the efferent loop, which were both grossly normal-appearing. Multiple cold forceps biopsies were obtained from the efferent loop. Further withdrawal into the gastric remnant revealed normal- appearing mucosa at the anastomotic site without ulcerations or strictures. A CLOtest was performed in order to rule out H. pylori. Further withdrawal of the endoscope into the distal esophagus revealed an irregular appearing Z-line at 35 cm from the incisors. Cold forceps biopsies were obtained from this area. The rest of the tubular esophagus was normal-appearing. Air was then removed from the patient. Endoscope was removed from the patient. The patient tolerated the procedure well. There were no immediate complications. After a period of observation, the patient was discharged home with a pharmacy delivery driver in stable condition. Thank you, Andi Boyer, and Dr. Whitley, for allowing us to participate in the care of your patient. If you should have any further questions or concerns, please do not hesitate to contact us. [id number]/[facility] #: [id number] FARHAN
[2018-06-07] MEDS: Amphetamine MIXED SALT TAB* 10 MG TAB PO SCH ×2 (07:47→12:47)
[2018-06-07] MEDS: lamoTRIgine TAB(*) 25 MG PO SCH ×2 (07:48→21:09)
[2018-06-07] MEDS: cloNIDine TAB* 0.1 MG PO SCH ×2 (07:48→21:12)
[2018-06-07] MEDS: lamoTRIgine TAB(*) 100 MG PO SCH ×2 (07:48→21:11)
[2018-06-07] MEDS: ARIPiprazole TAB* 2 MG PO SCH (07:54)
[2018-06-07] MEDS ORDERED: Ondansetron INJ* 2 MG/ML VIAL ONE (09:12)
[2018-06-07] MEDS ORDERED: Ondansetron INJ* 2 MG/ML VIAL IV PRN (09:40)
--- NOTE | 2018-06-07 11:43 | PN ---
Progress Note - Progress Note Date of Service: 06/07/18 SOAP: Subjective: Pt seen and examined. Still with abdo pain nauseous 2ary to golytely prep for C scope today- clear from below Appetite improving Objective: af vss g tube output 1300cc/ 24hrs lungs clear abdo: soft/ ND/ tender without rebound no hernia ext wnl EGD : wnl Assessment: HD 4 abdo pain; colonic ileus resolved Plan: colonoscopy pain control continue workup
[2018-06-07] MEDS ORDERED: fentaNYL* 50 MCG/ML 2 ML VIAL (100 MCG VIAL) ONE (14:36)
[2018-06-07] MEDS ORDERED: Midazolam* 1 MG/ML 10 ML VIAL (10 MG) ONE (14:37)
--- NOTE | 2018-06-07 18:27 | PN ---
Progress Note - Progress Note Date of Service: 06/07/18 - Gastroenterology Note: Patient seen and examined this morning. Prepping for colonoscopy today. Mild abdominal cramping due to prep. Having clear to yellow stools. No emesis. Mild nausea with prep. Vital Signs: Temp Pulse Resp BP Pulse Ox 98.0 F 72 18 114/70 100 06/07/18 16:57 06/07/18 16:57 06/07/18 17:30 06/07/18 16:57 06/07/18 16:57 Physical Examination: General: AAOx3. NAD. CV: RRR. PULM: CTAB. ABDOMEN: Soft, non-tender and non-distended. Catheter with bilious fluid. EXTREMITIES: Mild edema in lower extremities B/L. Laboratory Last Values WBC 5.2 10^3/ul (3.5-10.8) 06/06/18 06:40 RBC 3.36 10^6/ul (4.00-5.40) L 06/06/18 06:40 Hgb 10.7 g/dl (12.0-16.0) L 06/06/18 06:40 Hct 31 % (35-47) L 06/06/18 06:40 MCV 91 fL (80-97) 06/06/18 06:40 MCH 32 pg (27-31) H 06/06/18 06:40 MCHC 35 g/dl (31-36) 06/06/18 06:40 RDW 15 % (10.5-15) 06/06/18 06:40 Plt Count 172 10^3/ul (150-450) 06/06/18 06:40 MPV 7.6 um3 (7.4-10.4) 06/06/18 06:40 Neut % (Auto) 40.1 % (38-83) 06/06/18 06:40 Lymph % (Auto) 43.4 % (25-47) 06/06/18 06:40 [place] % (Auto) 11.8 % (0-7) H 06/06/18 06:40 Eos % (Auto) 4.0 % (0-6) 06/06/18 06:40 Baso % (Auto) 0.7 % (0-2) 06/06/18 06:40 Absolute Neuts (auto) 2.1 10^3/ul (1.5-7.7) 06/06/18 06:40 Absolute Lymphs (auto) 2.3 10^3/ul (1.0-4.8) 06/06/18 06:40 Absolute Monos (auto) 0.6 10^3/ul (0-0.8) 06/06/18 06:40 Absolute Eos (auto) 0.2 10^3/ul (0-0.6) 06/06/18 06:40 Absolute Basos (auto) 0 10^3/ul (0-0.2) 06/06/18 06:40 Absolute Nucleated RBC 0 10^3/ul 06/06/18 06:40 Nucleated RBC % 0 06/06/18 06:40 Sodium 138 mmol/L (135-145) 06/06/18 06:40 Potassium 3.9 mmol/L (3.5-5.0) 06/06/18 06:40 Chloride 109 mmol/L (101-111) 06/06/18 06:40 Carbon Dioxide 24 mmol/L (22-32) 06/06/18 06:40 Anion Gap 5 mmol/L (2-11) 06/06/18 06:40 BUN 5 mg/dL (6-24) L 06/06/18 06:40 Creatinine 0.45 mg/dL (0.51-0.95) L 06/06/18 06:40 Est GFR ( Amer) 185.8 (>60) 06/06/18 06:40 Est GFR (Non-Af Amer) 153.5 (>60) 06/06/18 06:40 BUN/Creatinine Ratio 11.1 (8-20) 06/06/18 06:40 Glucose 79 mg/dL (70-100) 06/06/18 06:40 Lactic Acid 0.6 mmol/L (0.5-2.0) 06/04/18 16:55 Calcium 8.1 mg/dL (8.6-10.3) L 06/06/18 06:40 Total Bilirubin 0.30 mg/dL (0.2-1.0) 06/06/18 06:40 AST 12 U/L (13-39) L 06/06/18 06:40 ALT 13 U/L (7-52) 06/06/18 06:40 Alkaline Phosphatase 87 U/L (34-104) 06/06/18 06:40 C-Reactive Protein < 1.00 mg/L (<8.01) 06/04/18 16:54 Total Protein 5.1 g/dL (6.4-8.9) L 06/06/18 06:40 Albumin 2.8 g/dL (3.2-5.2) L 06/06/18 06:40 Globulin 2.3 g/dL (2-4) 06/06/18 06:40 Albumin/Globulin Ratio 1.2 (1-3) 06/06/18 06:40 Lipase 56 U/L (11.0-82.0) 06/04/18 16:54 Beta HCG, Quant < 0.60 mIU/mL 06/04/18 16:54 A/P: 43 yo female with multiple abdominal surgeries, including gastric bypass, G -tube for malnutrition, and recent small bowel obstructions who presented with acute on chronic abdominal pain. CT A/P revealed stool and some distention in the colon c/w with colonic ileus which has since improved throughout patient's hospital course. Surgery consulted Gastroenterology for further evaluation. 1. Acute on chronic abdominal pain - slightly improved. ~EGD yesterday was essentially unremarkable. Bx pending. ~Colonoscopy to terminal ileum today revealed fair prep suggestive of chronic constipation but otherwise unremarkable. ~Need to optimize bowel regimen. Recommend starting with Miralax BID. Discussed results with patient's family and Dr. Whitley. Please call with any questions or concerns. Francheska Santana D.O.
[2018-06-07] MEDS: Polyethylene Glycol 3350* 17 GM PACKET PO SCH (21:05)
--- NOTE | 2018-06-08 03:12 | PRO ---
CC: Compa Boyer NP; Dr. Whitley * GASTROENTEROLOGY OPERATIVE REPORT: DATE OF PROCEDURE: 06/07/17 OPERATIVE PROCEDURE: Colonoscopy to terminal ileum SURGEON: Francheska Santana DO ANESTHESIA: 1. Midazolam 7 mg IV. 2. Fentanyl 125 mcg IV. HISTORY OF PRESENT ILLNESS: Ramses is a pleasant 43-year-old female who presented with acute on chronic abdominal pain, history of multiple abdominal surgeries including frequent small bowel obstructions and a new colonic ileus on this admission . Gastroenterology was consulted for further evaluation. Patient has never had a colonoscopy. She denies family history of colon cancer. PREOPERATIVE DIAGNOSES: 1. Acute on chronic abdominal pain. 2. Recent colonic ileus. 3. Frequent small bowel obstructions. POSTOPERATIVE DIAGNOSES: 1. Normal-appearing terminal ileum. 2. Normal cecum ascending colon, transverse colon, descending colon, sigmoid colon. 3. Small nonbleeding internal hemorrhoids on retroflexion. 4. Fair colonoscopy preparation, polyps less than 5 mm may have been missed on this examination. RECOMMENDATIONS: 1. We will start the patient on MiraLAX 17 g 1 packet twice a day to optimize the patient's bowel regimen as she is likely constipated which may be resulting in her frequent episodes of ileus and partial small bowel obstructions in the setting of several abdominal surgeries. 2. The patient should have a repeat screening colonoscopy at 52 years of age for screening purposes as this was not a good screening test due to fair preparation. 3. The patient should follow up in our office in 2 weeks to optimize bowel regimen. 4. Findings were discussed with Dr. Whitley as well as the patient's family at bedside. OPERATIVE PROCEDURE: Colonoscopy was explained in detail to the patient. The risks, benefits, complications, alternatives, and possibilities of missed lesions were explained and understood. Complications included, but were not limited to reaction to anesthesia, aspiration, increased risk of bleeding, infection and perforation. All questions were answered. The patient demonstrated understanding of the conversation and informed consent was obtained. Next, the patient was brought to the endoscopy suite, placed in the left lateral recumbent position while blood pressure, cardiac, and oxygen monitors were applied. The patient was found to be a fit candidate for a moderate anesthesia. After adequate IV sedation was achieved, a digital rectal exam was performed, which revealed normal sphincter tone. No palpable masses were appreciated. Next, a standard adult Olympus colonoscope was inserted through the rectum, maneuvered all the way to the cecal base where the ileocecal valve and appendical orifice were identified and photographed. Next, the terminal ileum was intubated and was normal-appearing. Subsequently, the colonoscope was withdrawn in a fashion that allowed adequate visualization of bowel. The patient overall had a fair colonoscopy preparation after aggressive irrigation and suctioning was performed. The submucosal colonic vasculature was normal- appearing. The patient appeared to have a normal cecum, ascending colon, transverse colon, descending colon, sigmoid colon. The colonoscope was withdrawn into the rectum revealing normal mucosa. Retroflexion was performed revealing small nonbleeding internal hemorrhoids. Air was then removed from the patient. Colonoscope was removed from the patient. The patient tolerated the procedure well. There are no immediate complications. After period of observation, the patient was transferred back to the surgical floor for further care. Thank you Dr. Whitley for allowing us to participate in the care of your patient. If you should have any further questions or concerns, please do not hesitate to contact us. [id number]/[facility] #: [id number] FARHAN
[2018-06-08] MEDS: oxyCODONE/Acetamin 5/325 MG* TAB PO PRN ×2 (03:35→07:49)
[2018-06-08] MEDS: cloNIDine TAB* 0.1 MG PO SCH (07:49)
[2018-06-08] MEDS: Amphetamine MIXED SALT TAB* 10 MG TAB PO SCH ×2 (07:49→13:00)
[2018-06-08] MEDS: lamoTRIgine TAB(*) 25 MG PO SCH (07:49)
[2018-06-08] MEDS: lamoTRIgine TAB(*) 100 MG PO SCH (07:49)
[2018-06-08] MEDS: ARIPiprazole TAB* 2 MG PO SCH (07:49)
[2018-06-08] MEDS: Polyethylene Glycol 3350* 17 GM PACKET PO SCH (07:49)
[2018-06-08 11:28] VITALS: BP 108/54
--- NOTE | 2018-06-08 13:57 | DS ---
CC: Compa Boyer NP; [facility]. DISCHARGE SUMMARY: DATE OF ADMISSION: DATE OF DISCHARGE: 06/08/18 HISTORY: Ms. Verma is a 43-year-old female was admitted with abdominal pain and distention, und erwent a CAT scan and routine labs. The patient was noted to have dilated air filled large bowel as well as mildly dilated small bowel, was admitted and her gastrostomy tube opened to straight drainage . The patient was observed, pain controlled with narcotics and NSAIDs. Gastroenterology was consulted a nd patient underwent an EGD, which was within normal limits. The case was discussed with the endosco pist and the following day the patient underwent colonoscopy to rule out any colon issue as to why th e patient had colonic ileus. The too was normal and at this point patient's gastrostomy tube was cap ped and we fed her. She tolerated this well and she was seen on a daily basis and by a hospital day five, the patient stated that she was back to her normal condition and was scheduled for discharge ho tn. Plan will be for not using the gastrostomy tube. We will also see her regularly at [facility]. I spent lot of time discussing with the patient and her family the difficulty finding a diagnosis as why the patient goes through these episodes of ileus and colonic ileus. Differential diagnosis is be coming smaller and smaller after undergoing CAT scans, endoscopies. I believe the patient may benefi t from adjustment of her medications and frequent small meals about with bowel regimen. On day of discharge, the patient was examined. She is afebrile. Vital signs stable. Lungs: Clear. Abdomen: Soft, nondistended, nontender. Gastrostomy capped. No redness around the site. Rectal E xam: Not performed. Extremities within normal limits. PLAN: Discharge home. Follow up in the office. [id number]/[facility] #: [id number]
== END 2018-06-08 13:02 | disposition home or self-care (01) | DRG 390 ==
LOC: ED 15:54 → SSU 22:16 → OBSVTOIN 06-05 17:00
PROVIDERS: ADMIT Surgery; ATTEND Surgery
PROC: 0DB38ZX Excision of Lower Esophagus, Via Natural or Artificial Opening Endoscopic, Diagnostic (ICD-10-PCS; principal; 2018-06-06)
PROC: 0DB68ZX Excision of Stomach, Via Natural or Artificial Opening Endoscopic, Diagnostic (ICD-10-PCS; 2018-06-06)
PROC: 0DBA8ZX Excision of Jejunum, Via Natural or Artificial Opening Endoscopic, Diagnostic (ICD-10-PCS; 2018-06-06)
PROC: 0DJD8ZZ Inspection of Lower Intestinal Tract, Via Natural or Artificial Opening Endoscopic (ICD-10-PCS; 2018-06-07)
DX: K56.7 Ileus, unspecified (principal); Z93.1 Gastrostomy status; F31.9 Bipolar disorder, unspecified; K64.8 Other hemorrhoids; D50.9 Iron deficiency anemia, unspecified; Z79.899 Other long term (current) drug therapy; Z98.84 Bariatric surgery status
CPT/HCPCS: A9270-GY; G8427; J1170; J1885; J2250; J2405; J3010; Q9967

== ENCOUNTER 2018-07-28 18:23 | Inpatient (IN) | payer MEDICARE ==
--- OUTSIDE RECORDS SUMMARY | 2018-07-28 18:54 | XMS REPORT ---
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 Active Onset: 12/12/2013 Bipolar disorder Leny Hester M.D. 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 Cigarette Use Never Smoked Cigarettes ETOH Use Denies alcohol use Recreational Drug Use Denies Drug Use Daily Caffeine Consumes on average 2 sodas per day Allergies, Adverse Reactions, Alerts Date Description Reaction Status Severity Comments 05/13/2013 Penicillins active 05/13/2013 Keflex active Medications Medication Date Status Form Strength Qnty SIG Indications Ordering Provider Clonidine HCL 06/15 Active Tablets ER 0.1mg 60tab 1 tab by Jono ER /2017 12HR s mouth twice Yohannes a day Amphetamine-De 06/15 Active Tablets 20mg 30tab 1 tab by Jono xtroamphetamin s mouth twice Yohannes e a day Calcium 1200 11/17 Active Chewtabs [id number] Jono mg-Unit MD Yohannes Vitamin B-12 11/17 Active Tablets 500mcg 30tab 1 by mouth Shawnti R. s every day Storm, Natural [employer] Lamotrigine Active Tablets 150mg 60tab 1 by mouth Jono /0000 s twice a day MD Yohannes Quetiapine Active Tablets 300mg 30tab take one Jono Fumarate /0000 s tablet by bhavani Sheffield at MD bedtime Buspirone HCL Active Tablets 10mg 90tab take 1 Jono /0000 s tablet by Yohannes mouth 3 MD times per day as needed for anxiety Aripiprazole Active Tablets 2mg 30tab Take one Jono /0000 s tablet by bhavani Sheffield every MD morning Miralax Active Packet [id number] start 2 Unknown packets dissolved in water by mouth twice a day Potassimin Active Unknown /0000 Flintstones 11/17 Hx Chewtabs bid Shawnti R. Plus Storm, - [employer] 06/15 Senna 07/06 Hx Tablets 8.6mg 60tab 1 po bid if Shawnti R. /2014 s needed for Storm, - constipation [employer] 11/17 Hydrocodone-Ac 07/04 Hx Tablets 10-325mg 30tab 1 po q4hrs etaminophen s prn Tricia Mike M.DMike 11/17 Azithromycin 06/08 Hx Tablets 250mg 6tabs 2 by mouth 462 every day Rashid - day 1, then M.D. 06/30 1 by mouth /2015 every day days 2-5 Urea 03/31 Hx Cream 20% 85gm apply to 782.9 Della feet q hs Randell, - then put [employer] 06/15 socks on. wash feet before applying Lamotrigine 12/12 Hx Tablets 25mg 70tab Take three Leny s tablets po Kierra Hester, - daily M.D. 06/15 Loratadine 12/12 Hx Tablets 10mg 30tab 1 po qd 780.4 Leny s Kierra Hester, - M.D. 11/17 Meclizine HCL 12/12 Hx Tablets 25mg 30tab one tablet 780.4 s every 4-6 Kierra Hester, - hours as M.D. 11/17 needed for dizziness No Active 06/27 Hx Unknown Medications /2012 - 06/27 Nystatin 06/27 Hx Cream [id number] 30gra use bid to t/GM m yeast rash P. Blegen, - on breasts M.D. 12/12 for up to weeks Nystatin 06/27 Hx Suspension [id number] QS 5 ml (1 t/ML teaspoon) P. Blegen, - swish and M.D. 12/12 swallow directed qid x 7 days (48 hours after symptoms resolve) Cortisporin 06/27 Hx Solution [id number] 1unit otic- 4 -1 s drops ears P. Blegen, - tid x 7 days M.D. 12/12 And 05/13 Hx Tablets daily Shawnti R. Merlin, - [employer] 11/17 Tums 05/13 Hx Chewtabs 500mg Shawnti R. Merlin, - [employer] 06/27 Ranitidine HCL 05/13 Hx Capsules 150mg 1 po bid Shawnti R. Merlin, - [employer] 06/27 Amphetamine/De Hx Tablets 20mg 60tab 1 tablet by Jono xtroamphetamin / s mouth twice [place], e - a day 06/15 Hydrocodone-Ac Hx Tablets 5-325mg Unknown etaminophen /0000 - 11/17 Ciprofloxacin Hx Tablets 500mg Unknown HCL / - 11/17 Clonidine HCL Hx Tablets ER 0.1mg 1 tab by Unknown 12HR mouth twice - a day 06/15 Immunizations CPT Code Status Date Vaccine Lot # [id number] Given 07/11/2018 Tdap (Adacel) [id number] Vital Signs Date Vital Result Comment 07/11/2018 Weight 122.00 lb Weight in kg's 55.339 BP Systolic 110 mmHg BP Diastolic 70 mmHg Heart Rate 68 /min Body Temperature 98.7 F Respiratory Rate 16 /min O2 % BldC Oximetry 99 % 06/15/2018 Weight 118.00 lb Weight in kg's 53.525 BP Systolic 102 mmHg BP Diastolic 64 mmHg Heart Rate 69 /min Body Temperature 97.5 F Respiratory Rate 15 /min Height 60 inches 5'0" BMI (Body Mass Index) 23.0 kg/m2 O2 % BldC Oximetry 98 % 11/17/2015 Weight 216.00 lb Weight in kg's 97.978 BP Systolic 120 mmHg BP Diastolic 84 mmHg Heart Rate 78 /min Body Temperature 97.9 F O2 % BldC Oximetry 96 % 07/04/2015 Weight 236.00 lb Weight in kg's 107.050 BP Systolic 112 mmHg BP Diastolic 80 mmHg Heart Rate 68 /min Body Temperature 99.2 F 06/08/2015 Weight 238.00 lb Weight in kg's 107.957 BP Systolic 112 mmHg BP Diastolic 78 mmHg Heart Rate 64 /min Body Temperature 98.8 F 04/28/2015 Weight 234.00 lb Weight in kg's 106.142 BP Systolic 128 mmHg BP Diastolic 80 mmHg Heart Rate 72 /min 03/31/2014 Weight 227.00 lb Weight in kg's 102.967 BP Systolic 110 mmHg BP Diastolic 70 mmHg Heart Rate 80 /min 12/12/2013 Weight 234.00 lb Weight in kg's 106.142 BP Systolic 114 mmHg BP Diastolic 72 mmHg Heart Rate 84 /min Body Temperature 97.4 F 06/27/2013 Weight 232.00 lb Weight in kg's 105.235 BP Systolic 128 mmHg BP Diastolic 86 mmHg Heart Rate 68 /min Body Temperature 97.8 F 05/13/2013 Weight 234.00 lb Weight in kg's 106.142 BP Systolic 118 mmHg BP Diastolic 74 mmHg Heart Rate 74 /min Body Temperature 98.0 F Height 60.5 inches 5'0.50" BMI (Body Mass Index) 44.9 kg/m2 Right Visual Acuity Distance 20/25 corrected Left Visual Acuity Distance 20/25 corrected Both Visual Acuity Distance 20/25 corrected O2 % BldC Oximetry 98 % Results Test Date Test Result H/L Range Note Laboratory test 06/06/2018 Surgical Interface SEE RESULT 1 finding Order BELOW Laboratory test 06/04/2018 TSH (Thyroid 1.08 mcIU/mL 0.34-5.60 finding Stimulating Horm) CBC Auto Diff 05/28/2018 White Blood Count 6.9 10^3/uL 3.5-10.8 Red Blood Count 3.94 10^6/uL Low 4.00-5.40 Hemoglobin 12.3 g/dL 12.0-16.0 Hematocrit 36 % 35-47 Mean Corpuscular Volume 92 fL 80-97 Mean Corpuscular Hemoglobin 31 pg 27-31 Mean Corpuscular HGB Conc 34 g/dL 31-36 Red Cell Distribution Width 15 % 10.5-15 Platelet Count 242 10^3/uL 150-450 Mean Platelet Volume 7.3 um3 Low 7.4-10.4 Abs Neutrophils 3.5 10^3/uL 1.5-7.7 Abs Lymphocytes 2.4 10^3/uL 1.0-4.8 Abs Monocytes 0.8 10^3/uL 0-0.8 Abs Eosinophils 0.1 10^3/uL 0-0.6 Abs Basophils 0.1 10^3/uL 0-0.2 Abs Nucleated RBC 0 10^3/uL Granulocyte % 50.2 % 38-83 Lymphocyte % 35.3 % 25-47 Monocyte % 11.1 % High 0-7 Eosinophil % 2.0 % 0-6 Basophil % 1.4 % 0-2 Nucleated Red Blood Cells % 0 Iron & Iron Binding Capacity 05/28/2018 Iron 78 g/dL 50-212 Unsaturated Iron Binding 213 g/dL Total Iron Binding Capacity 291 g/dL 250-450 Transferrin 208 mg/dL 203-362 % Iron Saturation 27 % 15-55 Laboratory test finding 05/28/2018 Ferritin 57.4 ng/mL 11-307 CBC Auto Diff 04/25/2018 White Blood Count 7.7 10^3/uL 3.5-10.8 Red Blood Count 3.92 10^6/uL Low 4.0-5.4 Hemoglobin 12.0 g/dL 12.0-16.0 Hematocrit 35 % 35-47 Mean Corpuscular Volume 90 fL 80-97 Mean Corpuscular Hemoglobin 31 pg 27-31 Mean Corpuscular HGB Conc 34 g/dL 31-36 Red Cell Distribution Width 15 % 10.5-15 Platelet Count 198 10^3/uL 150-450 Mean Platelet Volume 8.5 um3 7.4-10.4 Abs Neutrophils 4.2 10^3/uL 1.5-7.7 Abs Lymphocytes 2.3 10^3/uL 1.0-4.8 Abs Monocytes 1.0 10^3/uL High 0-0.8 Abs Eosinophils 0.2 10^3/uL 0-0.6 Abs Basophils 0 10^3/uL 0-0.2 Abs Nucleated RBC 0 10^3/uL Granulocyte % 54.6 % 38-83 Lymphocyte % 29.3 % 25-47 Monocyte % 13.0 % High 0-7 Eosinophil % 2.9 % 0-6 Basophil % 0.2 % 0-2 Nucleated Red Blood Cells % 0.1 Laboratory test finding 04/25/2018 Magnesium 2.1 mg/dL 1.9-2.7 Amylase 66 U/L 29-103 Lipase 60 U/L 11.0-82.0 C Reactive Protein < 1.00 mg/L < 5.00 2 Laboratory test finding 04/25/2018 Lactic Acid 0.9 mmol/L 0.5-2.0 3 Inr/Protime 04/25/2018 Inr 0.92 0.77-1.02 Laboratory test finding 04/25/2018 Partial Thrombo Time 31.1 seconds 26.0 -36.3 PTT Comp Metabolic Panel 04/25/2018 Sodium 140 mmol/L 139-145 Potassium 3.7 mmol/L 3.5-5.0 Chloride 107 mmol/L 101-111 Co2 Carbon Dioxide 31 mmol/L 22-32 Anion Gap 2 mmol/L 2-11 Glucose 42 mg/dL Low 70-100 Blood Urea Nitrogen 9 mg/dL 6-24 Creatinine 0.44 mg/dL Low 0.51-0.95 BUN/Creatinine Ratio 20.5 High 8-20 Calcium 8.6 mg/dL 8.6-10.3 Total Protein 6.2 g/dL Low 6.4-8.9 Albumin 3.4 g/dL 3.2-5.2 Globulin 2.8 g/dL 2-4 Albumin/Globulin Ratio 1.2 1-3 Total Bilirubin 0.20 mg/dL 0.2-1.0 Alkaline Phosphatase 114 U/L High 34-104 Alt 48 U/L 7-52 Ast 48 U/L High 13-39 Egfr Non- 158.4 >60 Egfr 203.7 >60 4 Laboratory test finding 03/27/2018 Lactic Acid 1.9 mmol/L 0.5-2.0 5 CBC Auto Diff 03/27/2018 White Blood Count 8.5 10^3/uL 3.5-10.8 Red Blood Count 4.45 10^6/uL 4.0-5.4 Hemoglobin 13.6 g/dL 12.0-16.0 Hematocrit 40 % 35-47 Mean Corpuscular Volume 90 fL 80-97 Mean Corpuscular Hemoglobin 31 pg 27-31 Mean Corpuscular HGB Conc 34 g/dL 31-36 Red Cell Distribution Width 17 % High 10.5-15 Platelet Count 246 10^3/uL 150-450 Mean Platelet Volume 7.5 um3 7.4-10.4 Abs Neutrophils 5.3 10^3/uL 1.5-7.7 Abs Lymphocytes 2.4 10^3/uL 1.0-4.8 Abs Monocytes 0.6 10^3/uL 0-0.8 Abs Eosinophils 0.1 10^3/uL 0-0.6 Abs Basophils 0.1 10^3/uL 0-0.2 Abs Nucleated RBC 0 10^3/uL Granulocyte % 62.6 % 38-83 Lymphocyte % 28.1 % 25-47 Monocyte % 7.2 % High 0-7 Eosinophil % 1.2 % 0-6 Basophil % 0.9 % 0-2 Nucleated Red Blood Cells % 0.1 Comp Metabolic Panel 03/27/2018 Sodium 137 mmol/L Low 139-145 Potassium 3.9 mmol/L 3.5-5.0 Chloride 104 mmol/L 101-111 Co2 Carbon Dioxide 24 mmol/L 22-32 Anion Gap 9 mmol/L 2-11 Glucose 129 mg/dL High 70-100 Blood Urea Nitrogen 14 mg/dL 6-24 Creatinine 0.59 mg/dL 0.51-0.95 BUN/Creatinine Ratio 23.7 High 8-20 Calcium 9.8 mg/dL 8.6-10.3 Total Protein 7.2 g/dL 6.4-8.9 Albumin 4.1 g/dL 3.2-5.2 Globulin 3.1 g/dL 2-4 Albumin/Globulin Ratio 1.3 1-3 Total Bilirubin 0.40 mg/dL 0.2-1.0 Alkaline Phosphatase 113 U/L High 34-104 Alt 18 U/L 7-52 Ast 15 U/L 13-39 Egfr Non- 112.9 >60 Egfr 145.2 >60 6 Laboratory test finding 03/27/2018 Lipase 38 U/L 11.0-82.0 C Reactive Protein < 1.00 mg/L < 5.00 7 HCG < 0.60 mIU/mL 8 Type & Screen 03/27/2018 Patient Blood Type O Positive Antibody Screen NEGATIVE Urinalysis Profile 03/27/2018 Urine Color Yellow Urine Appearance Cloudy Urine Specific [place] 1.027 1.010-1.030 Urine pH 5.0 5-9 Urine Urobilinogen Negative Negative Urine Ketones Negative Negative Urine Protein Negative Negative Urine Leukocytes Trace Negative Urine Blood Negative Negative Urine Nitrite Negative Negative Urine Bilirubin Negative Negative Urine Glucose Negative Negative Urine White Blood Cell 1+(6-10/hpf) Absent Urine Red Blood Cell 1+(3-5/hpf) Absent Urine Bacteria Absent Absent Urine Squamous Epithelial Cell Present Absent Urine Culture And 03/27/2018 Urine Culture SEE RESULT BELOW 9 Sensitivities CBC Auto Diff 02/19/2018 White Blood Count 7.3 10^3/uL 3.5-10.8 Red Blood Count 3.95 10^6/uL Low 4.0-5.4 Hemoglobin 11.1 g/dL Low 12.0-16.0 Hematocrit 33 % Low 35-47 Mean Corpuscular Volume 83 fL 80-97 Mean Corpuscular Hemoglobin 28 pg 27-31 Mean Corpuscular HGB Conc 34 g/dL 31-36 Red Cell Distribution Width 21 % High 10.5-15 Platelet Count 376 10^3/uL 150-450 Mean Platelet Volume 6.9 um3 Low 7.4-10.4 Abs Neutrophils 4.2 10^3/uL 1.5-7.7 Abs Lymphocytes 2.2 10^3/uL 1.0-4.8 Abs Monocytes 0.7 10^3/uL 0-0.8 Abs Eosinophils 0.2 10^3/uL 0-0.6 Abs Basophils 0 10^3/uL 0-0.2 Abs Nucleated RBC 0 10^3/uL Granulocyte % 56.6 % 38-83 Lymphocyte % 30.4 % 25-47 Monocyte % 9.4 % High 0-7 Eosinophil % 3.3 % 0-6 Basophil % 0.3 % 0-2 Nucleated Red Blood Cells % 0 Iron & Iron Binding Capacity 02/19/2018 Iron 44 g/dL Low 50-212 Unsaturated Iron Binding 277 g/dL Total Iron Binding Capacity 321 g/dL 250-450 Transferrin 229 mg/dL 203-362 % Iron Saturation 14 % Low 15-55 Laboratory test finding 02/19/2018 Ferritin 43.9 ng/mL 11-307 Inr/Protime 02/15/2018 Inr 1.01 0.77-1.02 Laboratory test finding 02/15/2018 Partial Thrombo Time 32.1 seconds 26.0 -36.3 PTT Comp Metabolic Panel 02/15/2018 Sodium 141 mmol/L 139-145 Potassium 3.2 mmol/L Low 3.5-5.0 Chloride 106 mmol/L 101-111 Co2 Carbon Dioxide 28 mmol/L 22-32 Anion Gap 7 mmol/L 2-11 Glucose 75 mg/dL 70-100 Blood Urea Nitrogen 14 mg/dL 6-24 Creatinine 0.49 mg/dL Low 0.51-0.95 BUN/Creatinine Ratio 28.6 High 8-20 Calcium 8.6 mg/dL 8.6-10.3 Total Protein 6.4 g/dL 6.4-8.9 Albumin 3.2 g/dL 3.2-5.2 Globulin 3.2 g/dL 2-4 Albumin/Globulin Ratio 1.0 1-3 Total Bilirubin 0.20 mg/dL 0.2-1.0 Alkaline Phosphatase 104 U/L 34-104 Alt 28 U/L 7-52 Ast 24 U/L 13-39 Egfr Non- 139.9 >60 Egfr 179.9 >60 10 Laboratory test finding 02/15/2018 Lipase 46 U/L 11.0-82.0 C Reactive Protein < 1.00 mg/L < 5.00 11 Lactic Acid 1.0 mmol/L 0.5-2.0 12 CBC Auto Diff 02/15/2018 White Blood Count 8.0 10^3/uL 3.5-10.8 Red Blood Count 3.86 10^6/uL Low 4.0-5.4 Hemoglobin 10.8 g/dL Low 12.0-16.0 Hematocrit 32 % Low 35-47 Mean Corpuscular Volume 83 fL 80-97 Mean Corpuscular Hemoglobin 28 pg 27-31 Mean Corpuscular HGB Conc 34 g/dL 31-36 Red Cell Distribution Width 21 % High 10.5-15 Platelet Count 458 10^3/uL High 150-450 Mean Platelet Volume 6.7 um3 Low 7.4-10.4 Abs Neutrophils 4.6 10^3/uL 1.5-7.7 Abs Lymphocytes 2.1 10^3/uL 1.0-4.8 Abs Monocytes 0.8 10^3/uL 0-0.8 Abs Eosinophils 0.3 10^3/uL 0-0.6 Abs Basophils 0.1 10^3/uL 0-0.2 Abs Nucleated RBC 0 10^3/uL Granulocyte % 57.7 % 38-83 Lymphocyte % 27.0 % 25-47 Monocyte % 10.4 % High 0-7 Eosinophil % 3.6 % 0-6 Basophil % 1.3 % 0-2 Nucleated Red Blood Cells % 0 Wound Culture/Sensi 02/07/2018 Wound/Misc SEE RESULT BELOW 13 Culture-Gram Stain Laboratory test finding 02/07/2018 MRSA/S. aureus Ssti SEE RESULT BELOW 14 PCR Basic Metabolic Panel 02/07/2018 Sodium 136 mmol/L 133-145 Potassium 3.7 mmol/L 3.5-5.0 Chloride 104 mmol/L 101-111 Co2 Carbon Dioxide 25 mmol/L 22-32 Anion Gap 7 mmol/L 2-11 Glucose 81 mg/dL 70-100 Blood Urea Nitrogen 12 mg/dL 6-24 Creatinine 0.40 mg/dL Low 0.51-0.95 BUN/Creatinine Ratio 30.0 High 8-20 Calcium 8.6 mg/dL 8.6-10.3 Egfr Non- 176.8 >60 Egfr 227.4 >60 15 Laboratory test finding 02/07/2018 C Reactive Protein 27.31 mg/L High < 5.00 16 CBC Auto Diff 02/07/2018 White Blood Count 10.6 10^3/uL 3.5-10.8 Red Blood Count 3.66 10^6/uL Low 4.0-5.4 Hemoglobin 10.2 g/dL Low 12.0-16.0 Hematocrit 30 % Low 35-47 Mean Corpuscular Volume 83 fL 80-97 Mean Corpuscular Hemoglobin 28 pg 27-31 Mean Corpuscular HGB Conc 34 g/dL 31-36 Red Cell Distribution Width 22 % High 10.5-15 Platelet Count 397 10^3/uL 150-450 Mean Platelet Volume 6.6 um3 Low 7.4-10.4 Abs Neutrophils 7.2 10^3/uL 1.5-7.7 Abs Lymphocytes 1.7 10^3/uL 1.0-4.8 Abs Monocytes 1.2 10^3/uL High 0-0.8 Abs Eosinophils 0.5 10^3/uL 0-0.6 Abs Basophils 0.1 10^3/uL 0-0.2 Abs Nucleated RBC 0 10^3/uL Granulocyte % 68.3 % 38-83 Lymphocyte % 15.8 % Low 25-47 Monocyte % 11.0 % High 0-7 Eosinophil % 4.4 % 0-6 Basophil % 0.5 % 0-2 Nucleated Red Blood Cells % 0 Laboratory test finding 02/07/2018 Blood Culture SEE RESULT BELOW 17 Urinalysis Profile 01/28/2018 Urine Color Yellow Urine Appearance Clear Urine Specific [place] 1.036 High 1.010-1.030 Urine pH 6.0 5-9 Urine Urobilinogen Negative Negative Urine Ketones Negative Negative Urine Protein Negative Negative Urine Leukocytes Negative Negative Urine Blood Negative Negative Urine Nitrite Negative Negative Urine Bilirubin Negative Negative Urine Glucose Negative Negative Comp Metabolic Panel 01/28/2018 Sodium 135 mmol/L 133-145 18 Potassium 3.3 mmol/L Low 3.5-5.0 18 Chloride 103 mmol/L 101-111 18 Co2 Carbon Dioxide 25 mmol/L 22-32 18 Anion Gap 7 mmol/L 2-11 18 Glucose 97 mg/dL 70-100 18 Blood Urea Nitrogen 12 mg/dL 6-24 18 Creatinine 0.56 mg/dL 0.51-0.95 18 BUN/Creatinine Ratio 21.4 High 8-20 18 Calcium 9.5 mg/dL 8.6-10.3 18 Total Protein 7.4 g/dL 6.4-8.9 18 Albumin 4.1 g/dL 3.2-5.2 18 Globulin 3.3 g/dL 2-4 18 Albumin/Globulin Ratio 1.2 1-3 18 Total Bilirubin 0.50 mg/dL 0.2-1.0 18 Alkaline Phosphatase 115 U/L High 34-104 18 Alt 25 U/L 7-52 18 Ast 20 U/L 13-39 18 Egfr Non- 119.9 >60 18 Egfr 154.2 >60 18, 19 Laboratory test finding 01/28/2018 Magnesium 1.8 mg/dL Low 1.9-2.7 18 Amylase 65 U/L 29-103 18 Lipase 46 U/L 11.0-82.0 18 C Reactive Protein < 1.00 mg/L < 5.00 18, 20 HCG < 0.60 mIU/mL 18, 21 Lactic Acid 1.0 mmol/L 0.5-2.0 18, 22 Inr/Protime 01/28/2018 Inr 0.95 0.77-1.02 18 Laboratory test finding 01/28/2018 Partial Thrombo Time 32.7 seconds 26.0 -36.3 18 PTT CBC Auto Diff 01/28/2018 White Blood Count 7.5 10^3/uL 3.5-10.8 18 Red Blood Count 4.94 10^6/uL 4.0-5.4 18 Hemoglobin 13.5 g/dL 12.0-16.0 18 Hematocrit 40 % 35-47 18 Mean Corpuscular Volume 81 fL 80-97 18 Mean Corpuscular Hemoglobin 27 pg 27-31 18 Mean Corpuscular HGB Conc 34 g/dL 31-36 18 Red Cell Distribution Width 23 % High 10.5-15 18 Platelet Count 237 10^3/uL 150-450 18 Mean Platelet Volume 7 um3 Low 7.4-10.4 18 Abs Neutrophils 4.8 10^3/uL 1.5-7.7 18 Abs Lymphocytes 2.0 10^3/uL 1.0-4.8 18 Abs Monocytes 0.5 10^3/uL 0-0.8 18 Abs Eosinophils 0.2 10^3/uL 0-0.6 18 Abs Basophils 0.1 10^3/uL 0-0.2 18 Abs Nucleated RBC 0 10^3/uL 18 Granulocyte % 64.5 % 38-83 18 Lymphocyte % 26.7 % 25-47 18 Monocyte % 6.1 % 0-7 18 Eosinophil % 2.0 % 0-6 18 Basophil % 0.7 % 0-2 18 Nucleated Red Blood Cells % 0 18 Comp Metabolic Panel 01/12/2018 Sodium 138 mmol/L [...] Egfr Non- 112.9 >60 Egfr 145.2 >60 23 Laboratory test finding 01/12/2018 Magnesium 2.0 mg/dL 1.9-2.7 Iron & Iron Binding Capacity 01/12/2018 Iron 79 g/dL 50-212 Unsaturated Iron Binding 229 g/dL Total Iron Binding Capacity 308 g/dL 250-450 % Iron Saturation 26 % 15-55 Laboratory test finding 01/12/2018 Ferritin 89.6 ng/mL 11-307 Vitamin D Total 25(Oh) 40.8 ng/mL 20-50 CBC Auto Diff 01/12/2018 White Blood Count 7.0 10^3/uL 3.5-10.8 Red Blood Count 4.62 10^6/uL 4.0-5.4 Hemoglobin 12.2 g/dL 12.0-16.0 Hematocrit 37 % 35-47 Mean Corpuscular Volume 80 fL 80-97 Mean Corpuscular Hemoglobin 26 pg Low 27-31 Mean Corpuscular HGB Conc 33 g/dL 31-36 Red Cell Distribution Width 23 % High 10.5-15 Platelet Count 216 10^3/uL 150-450 Mean Platelet Volume 8 um3 7.4-10.4 Abs Neutrophils 3.0 10^3/uL 1.5-7.7 Abs Lymphocytes 2.8 10^3/uL 1.0-4.8 Abs Monocytes 0.8 10^3/uL 0-0.8 Abs Eosinophils 0.3 10^3/uL 0-0.6 Abs Basophils 0.1 10^3/uL 0-0.2 Abs Nucleated RBC 0 10^3/uL Granulocyte % 42.2 % 38-83 Lymphocyte % 40.6 % 25-47 Monocyte % 11.1 % High 0-7 Eosinophil % 5.0 % 0-6 Basophil % 1.1 % 0-2 Nucleated Red Blood Cells % 0 Cell Morphology 01/12/2018 Anisocytosis 2+ Elliptocyte 1+ Laboratory test finding 01/12/2018 Pathologist Review (SEE NOTE) 24 CBC Auto Diff 12/02/2017 White Blood Count 14.6 10^3/uL High 3.5-10.8 Red Blood Count 4.05 10^6/uL 4.0-5.4 Hemoglobin 9.5 g/dL Low 12.0-16.0 Hematocrit 30 % Low 35-47 Mean Corpuscular Volume 75 fL Low 80-97 Mean Corpuscular Hemoglobin 24 pg Low 27-31 Mean Corpuscular HGB Conc 31 g/dL 31-36 Red Cell Distribution Width 15 % 10.5-15 Platelet Count 247 10^3/uL 150-450 Mean Platelet Volume 8 um3 7.4-10.4 Abs Neutrophils 12.5 10^3/uL High 1.5-7.7 Abs Lymphocytes 0.5 10^3/uL Low 1.0-4.8 Abs Monocytes 1.6 10^3/uL High 0-0.8 Abs Eosinophils 0 10^3/uL 0-0.6 Abs Basophils 0 10^3/uL 0-0.2 Abs Nucleated RBC 0 10^3/uL Granulocyte % 85.3 % High 38-83 Lymphocyte % 3.7 % Low 25-47 Monocyte % 10.7 % High 1-9 Eosinophil % 0 % 0-6 Basophil % 0.3 % 0-2 Nucleated Red Blood Cells % 0 Laboratory test finding 12/02/2017 Lactic Acid 1.2 mmol/L 0.5-2.0 25 Comp Metabolic Panel 12/02/2017 Sodium 139 mmol/L 133-145 Potassium 3.5 mmol/L 3.5-5.0 Chloride 111 mmol/L 101-111 Co2 Carbon Dioxide 20 mmol/L Low 22-32 Anion Gap 8 mmol/L 2-11 Glucose 147 mg/dL High 70-100 Blood Urea Nitrogen 21 mg/dL 6-24 Creatinine 0.50 mg/dL Low 0.51-0.95 BUN/Creatinine Ratio 42.0 High 8-20 Calcium 8.4 mg/dL Low 8.6-10.3 Total Protein 6.6 g/dL 6.4-8.9 Albumin 3.7 g/dL 3.2-5.2 Globulin 2.9 g/dL 2-4 Albumin/Globulin Ratio 1.3 1-3 Total Bilirubin 0.30 mg/dL 0.2-1.0 Alkaline Phosphatase 90 U/L 34-104 Alt 24 U/L 7-52 Ast 32 U/L 13-39 Egfr Non- 136.6 >60 Egfr 175.7 >60 26 Laboratory test finding 12/02/2017 Magnesium 1.7 mg/dL Low 1.9-2.7 Amylase 83 U/L 29-103 C Reactive Protein 3.62 mg/L < 5.00 27 HCG 3.04 mIU/mL 28 Laboratory test finding 12/02/2017 Lactic Acid 1.3 mmol/L 0.5-2.0 29 Arterial Blood Gas 12/02/2017 O2 Device nasal cannula Fio2 37 PH Arterial 7.35 7.35-7.45 Pco2 Arterial 35 mmHg 35-45 Po2 Arterial 153 mmHg High 80-100 O2 Saturation Arterial 99.5 % High 95-98 Base Excess Arterial -5.7 Low -2.0-2.0 30 Hco3 Arterial 20.5 mmol/L 19-31 Laboratory test finding 12/02/2017 Lactic Acid 2.1 mmol/L High 0.5-2.0 31 Laboratory test finding 12/02/2017 Inr 1.00 0.77-1.02 Laboratory test finding 12/01/2017 Lipase 41 U/L 11.0-82.0 32 Amylase 58 U/L 29-103 33 Comp Metabolic Panel 12/01/2017 Sodium 134 mmol/L 133-145 Potassium 3.5 mmol/L 3.5-5.0 Chloride 105 mmol/L 101-111 Co2 Carbon Dioxide 17 mmol/L Low 22-32 Anion Gap 12 mmol/L High 2-11 Glucose 227 mg/dL High 70-100 Blood Urea Nitrogen 15 mg/dL 6-24 Creatinine 0.58 mg/dL 0.51-0.95 BUN/Creatinine Ratio 25.9 High 8-20 Calcium 9.0 mg/dL 8.6-10.3 Total Protein 6.9 g/dL 6.4-8.9 Albumin 3.9 g/dL 3.2-5.2 Globulin 3.0 g/dL 2-4 Albumin/Globulin Ratio 1.3 1-3 Total Bilirubin 0.40 mg/dL 0.2-1.0 Alkaline Phosphatase 89 U/L 34-104 Alt 12 U/L 7-52 Ast 17 U/L 13-39 Egfr Non- 115.1 >60 Egfr 148.1 >60 34 CBC Auto Diff 12/01/2017 White Blood Count 12.2 10^3/uL High 3.5-10.8 Red Blood Count 4.00 10^6/uL 4.0-5.4 Hemoglobin 9.3 g/dL Low 12.0-16.0 Hematocrit 30 % Low 35-47 Mean Corpuscular Volume 75 fL Low 80-97 Mean Corpuscular Hemoglobin 23 pg Low 27-31 Mean Corpuscular HGB Conc 31 g/dL 31-36 Red Cell Distribution Width 15 % 10.5-15 Platelet Count 256 10^3/uL 150-450 Mean Platelet Volume 8 um3 7.4-10.4 Abs Neutrophils 10.0 10^3/uL High 1.5-7.7 Abs Lymphocytes 1.3 10^3/uL 1.0-4.8 Abs Monocytes 0.8 10^3/uL 0-0.8 Abs Eosinophils 0 10^3/uL 0-0.6 Abs Basophils 0.1 10^3/uL 0-0.2 Abs Nucleated RBC 0 10^3/uL Granulocyte % 82.2 % 38-83 Lymphocyte % 10.4 % Low 25-47 Monocyte % 6.3 % 1-9 Eosinophil % 0.3 % 0-6 Basophil % 0.8 % 0-2 Nucleated Red Blood Cells % 0.1 Laboratory test finding 12/01/2017 Urine Culture SEE RESULT BELOW 35 Urinalysis Profile 12/01/2017 Urine Color Yellow Urine Appearance Cloudy Urine Specific [place] 1.022 1.010-1.030 Urine pH 5.0 5-9 Urine Urobilinogen Negative Negative Urine Ketones Trace Negative Urine Protein 1+(30 mg/dL) Negative Urine Leukocytes Trace Negative Urine Blood 2+ Negative * * Negative 36 Urine Nitrite Negative Negative Urine Bilirubin Negative Negative Urine Glucose 3+(>=500 mg/dL) Negative Urine White Blood Cell Trace(0-5/hpf) Absent Urine Red Blood Cell Absent Absent Urine Bacteria Absent Absent Urine Squamous Epithelial Cell Present Absent CBC No Diff 11/22/2017 White Blood Count [...] % Iron Saturation 3 % Low 15-55 CBC Auto Diff 11/03/2015 White Blood Count 12.5 10^3/uL High 3.5-10.8 Red Blood Count 3.96 10^6/uL Low 4.0-5.4 Hemoglobin 11.1 g/dL Low 12.0-16.0 Hematocrit 35 % 35-47 Mean Corpuscular Volume 88 fL 80-97 Mean Corpuscular Hemoglobin 28 pg 27-31 Mean Corpuscular HGB Conc 32 g/dL 31-36 Red Cell Distribution Width 15 % 10.5-15 Platelet Count 317 10^3/uL 150-450 Mean Platelet Volume 7 um3 Low 7.4-10.4 Abs Neutrophils 9.6 10^3/uL High 1.5-7.7 Abs Lymphocytes 1.4 10^3/uL 1.0-4.8 Abs Monocytes 1.3 10^3/uL High 0-0.8 Abs Eosinophils 0.2 10^3/uL 0-0.6 Abs Basophils 0.1 10^3/uL 0-0.2 Abs Nucleated RBC 0.01 10^3/uL Granulocyte % 76.9 % 38-83 Lymphocyte % 10.9 % Low 25-47 Monocyte % 10.2 % High 1-9 Eosinophil % 1.4 % 0-6 Basophil % 0.6 % 0-2 Nucleated Red Blood Cells % 0 Comp Metabolic Panel 11/03/2015 Sodium 136 mmol/L 133-145 Potassium 3.4 mmol/L Low 3.5-5.0 Chloride 102 mmol/L 101-111 Co2 Carbon Dioxide 26 mmol/L 22-32 Anion Gap 8 mmol/L 2-11 Glucose 121 mg/dL High 70-100 Blood Urea Nitrogen 8 mg/dL 6-24 Creatinine 0.61 mg/dL 0.51-0.95 BUN/Creatinine Ratio 13.1 8-20 Calcium 8.5 mg/dL Low 8.6-10.3 Total Protein 6.8 g/dL 6.4-8.9 Albumin 3.4 g/dL 3.2-5.2 Globulin 3.4 g/dL 2-4 Albumin/Globulin Ratio 1.0 1-3 Total Bilirubin 0.40 mg/dL 0.2-1.0 Alkaline Phosphatase 149 U/L High 34-104 Alt 87 U/L High 7-52 Ast 41 U/L High 13-39 Egfr Non- 109.8 >60 Egfr 141.2 >60 37 Laboratory test finding 11/03/2015 Magnesium 1.9 mg/dL 1.9-2.7 Laboratory test finding 11/01/2015 Amylase 32 U/L 29-103 Lipase 22 U/L 11.0-82.0 Creatine Kinase 46 U/L 10-223 C Reactive Protein 115.40 mg/L High < 5.00 38 Troponin I 0.01 ng/mL <0.03 39 Serum HCG Qualitative Negative Negative Comp Metabolic Panel 11/01/2015 Sodium 135 mmol/L 133-145 Chloride 104 mmol/L 101-111 Co2 Carbon Dioxide 23 mmol/L 22-32 Glucose 91 mg/dL 70-100 Blood Urea Nitrogen 6 mg/dL 6-24 Creatinine 0.57 mg/dL 0.51-0.95 BUN/Creatinine Ratio 10.5 8-20 Calcium 8.8 mg/dL 8.6-10.3 Total Protein 7.1 g/dL 6.4-8.9 Albumin 3.5 g/dL 3.2-5.2 Globulin 3.6 g/dL 2-4 Albumin/Globulin Ratio 1.0 1-3 Total Bilirubin 0.80 mg/dL 0.2-1.0 Alkaline Phosphatase 116 U/L High 34-104 Alt 51 U/L 7-52 Egfr Non- 118.7 >60 Egfr 152.7 >60 40 Potassium TNP mmol/L 3.5-5.0 Anion Gap TNP mmol/L 2-11 Ast TNP U/L 13-39 Urinalysis Profile 11/01/2015 Urine Color Yellow Urine Appearance Clear Urine Specific [place] 1.004 Low 1.010-1.030 Urine pH 7.0 5-9 Urine Urobilinogen Negative Negative Urine Ketones Negative Negative Urine Protein Negative Negative Urine Leukocytes Negative Negative Urine Blood Negative Negative Urine Nitrite Negative Negative Urine Bilirubin Negative Negative Urine Glucose Negative Negative CBC Auto Diff 11/01/2015 White Blood Count 10.5 10^3/uL 3.5-10.8 Red Blood Count 3.96 10^6/uL Low 4.0-5.4 Hemoglobin 11.7 g/dL Low 12.0-16.0 Hematocrit 35 % 35-47 Mean Corpuscular Volume 89 fL 80-97 Mean Corpuscular Hemoglobin 30 pg 27-31 Mean Corpuscular HGB Conc 33 g/dL 31-36 Red Cell Distribution Width 15 % 10.5-15 Platelet Count 252 10^3/uL 150-450 Mean Platelet Volume 8 um3 7.4-10.4 Abs Neutrophils 8.2 10^3/uL High 1.5-7.7 Abs Lymphocytes 1.2 10^3/uL 1.0-4.8 Abs Monocytes 0.9 10^3/uL High 0-0.8 Abs Eosinophils 0.2 10^3/uL 0-0.6 Abs Basophils 0.1 10^3/uL 0-0.2 Abs Nucleated RBC 0.01 10^3/uL Granulocyte % 77.6 % 38-83 Lymphocyte % 11.8 % Low 25-47 Monocyte % 8.3 % 1-9 Eosinophil % 1.7 % 0-6 Basophil % 0.6 % 0-2 Nucleated Red Blood Cells % 0.1 Laboratory test finding 11/01/2015 Inr 1.10 0.89-1.11 Potassium Redraw 3.1 mmol/L Low 3.5-5.0 Ast Redraw 149 U/L High 13-39 CBC Auto Diff 10/19/2015 White Blood Count 10.4 10^3/uL 4.8-10.8 Red Blood Count 4.25 10^6/uL 4.0-5.4 Hemoglobin 12.2 g/dL 12.0-16.0 Hematocrit 38 % 35-47 Mean Corpuscular Volume 89 fL 80-97 Mean Corpuscular Hemoglobin 29 pg 27-31 Mean Corpuscular HGB Conc 32 g/dL 31-36 Red Cell Distribution Width 15 % 10.5-15 Platelet Count 258 10^3/uL 150-450 Mean Platelet Volume 8 um3 7.4-10.4 Abs Neutrophils 6.1 10^3/uL 1.5-7.7 Abs Lymphocytes 3.0 10^3/uL 1.0-4.8 Abs Monocytes 1.0 10^3/uL High 0-0.8 Abs Eosinophils 0.2 10^3/uL 0-0.6 Abs Basophils 0.1 10^3/uL 0-0.2 Abs Nucleated RBC 0 10^3/uL Granulocyte % 58.6 % 38-83 Lymphocyte % 29.2 % 25-47 Monocyte % 9.4 % High 1-9 Eosinophil % 2.3 % 0-6 Basophil % 0.5 % 0-2 Nucleated Red Blood Cells % 0 Comp Metabolic Panel 10/19/2015 Sodium 133 mmol/L 133-145 Potassium 4.0 mmol/L 3.5-5.0 Chloride 102 mmol/L 101-111 Co2 Carbon Dioxide 25 mmol/L 22-32 Anion Gap 6 mmol/L 2-11 Glucose 74 mg/dL 70-100 Blood Urea Nitrogen 13 mg/dL 6-24 Creatinine 0.62 mg/dL 0.51-0.95 BUN/Creatinine Ratio 21.0 High 8-20 Calcium 9.2 mg/dL 8.6-10.3 Total Protein 7.3 g/dL 6.4-8.9 Albumin 4.1 g/dL 3.2-5.2 Globulin 3.2 g/dL 2-4 Albumin/Globulin Ratio 1.3 1-3 Total Bilirubin 0.40 mg/dL 0.2-1.0 Alkaline Phosphatase 72 U/L 34-104 Alt 17 U/L 7-52 Ast 16 U/L 13-39 Egfr Non- 107.7 >60 Egfr 138.5 >60 41 Laboratory test finding 08/11/2015 Surgical Pathology SEE RESULT BELOW 42 Laboratory test finding 08/11/2015 Clotest SEE RESULT BELOW 43 CBC Auto Diff 07/02/2015 White Blood Count 9.2 10^3/uL 4.8-10.8 Red Blood Count 4.41 10^6/uL 4.0-5.4 Hemoglobin 12.6 g/dL 12.0-16.0 Hematocrit 39 % 35-47 Mean Corpuscular Volume 88 fL 80-97 Mean Corpuscular Hemoglobin 29 pg 27-31 Mean Corpuscular HGB Conc 32 g/dL 31-36 Red Cell Distribution Width 16 % High 10.5-15 Platelet Count 250 10^3/uL 150-450 Mean Platelet Volume 8 um3 7.4-10.4 Abs Neutrophils 5.7 10^3/uL 1.5-7.7 Abs Lymphocytes 2.6 10^3/uL 1.0-4.8 Abs Monocytes 0.7 10^3/uL 0-0.8 Abs Eosinophils 0.2 10^3/uL 0-0.6 Abs Basophils 0.1 10^3/uL 0-0.2 Abs Nucleated RBC 0 10^3/uL Granulocyte % 61.4 % 38-83 Lymphocyte % 28.4 % 25-47 Monocyte % 7.8 % 1-9 Eosinophil % 1.8 % 0-6 Basophil % 0.6 % 0-2 Nucleated Red Blood Cells % 0 Urinalysis Profile 07/02/2015 Urine Color Yellow Urine Appearance Cloudy Urine Specific [place] 1.011 1.010-1.030 Urine pH 6.0 5-9 Urine Urobilinogen Negative Negative Urine Ketones Negative Negative Urine Protein Negative Negative Urine Leukocytes 1+ Negative Urine Blood Negative Negative Urine Nitrite Negative Negative Urine Bilirubin Negative Negative Urine Glucose Negative Negative Urine White Blood Cell 1+(6-10/hpf) Absent Urine Red Blood Cell Trace(0-2/hpf) Absent Urine Bacteria Absent Absent Urine Squamous Epithelial Cell Present Absent Laboratory test 07/02/2015 Urine Culture SEE RESULT BELOW 44 finding Laboratory test 07/02/2015 Serum HCG Qualitative Negative Negative finding Comp Metabolic Panel 07/02/2015 Sodium 136 mmol/L 133-145 Potassium 4.0 mmol/L 3.5-5.0 Chloride 104 mmol/L 101-111 Co2 Carbon Dioxide 26 mmol/L 22-32 Anion Gap 6 mmol/L 2-11 Glucose 83 mg/dL 70-100 Blood Urea Nitrogen 13 mg/dL 6-24 Creatinine 0.64 mg/dL 0.51-0.95 BUN/Creatinine Ratio 20.3 High 8-20 Calcium 8.8 mg/dL 8.6-10.3 Total Protein 7.0 g/dL 6.4-8.9 Albumin 3.9 g/dL 3.2-5.2 Globulin 3.1 g/dL 2-4 Albumin/Globulin Ratio 1.3 1-3 Total Bilirubin 0.40 mg/dL 0.2-1.0 Alkaline Phosphatase 77 U/L 34-104 Alt 12 U/L 7-52 Ast 13 U/L 13-39 Egfr Non- 103.9 >60 Egfr 133.6 >60 45 Laboratory test finding 06/08/2015 Strep Screen NEG Neg Laboratory test finding 04/28/2015 TSH (Thyroid Stim Horm) 2.44 ?IU/mL 0.34-5.60 Lipid Profile 04/28/2015 Triglycerides 67 mg/dL 46 (Trig/Chol/HDL) Cholesterol 124 mg/dL 47 HDL Cholesterol 42.8 mg/dL 48 LDL Cholesterol 68 mg/dL 49 Laboratory test 04/28/2015 Hemoglobin A1c (Glyco 5.3 % Less than 6.0 50 finding HGB) Laboratory test 03/31/2014 Fungal Cult (SEE NOTE) 51 finding Skin/Hair/Nails Urine DIP 12/12/2013 Leukocytes neg Neg Urine Nitrites neg Neg Urine pH 5 5-6 Total Protein, Urine neg Neg Urine Glucose norm Norm Urine Ketones neg Neg Urobilinogen norm Norm Urine Bilirubin neg Neg Urine Blood neg Neg Specific [place] 1.020 1.01-1.02 Laboratory test finding 12/02/2013 TSH (Thyroid Stimulating 1.93 miu/mL 0.34-5.60 Horm) CBC Auto Diff 12/02/2013 White Blood Count 9.9 10^3/uL 4.8-10.8 Red Blood Count 4.36 10^6/uL 4.0-5.4 Hemoglobin 11.8 g/dL Low 12.0-16.0 Hematocrit 37 % 35-47 Mean Corpuscular Volume 86 fL 80-97 Mean Corpuscular Hemoglobin 27 pg 27-31 Mean Corpuscular HGB Conc 32 g/dL 31-36 Red Cell Distribution Width 14 % 10.5-15 Platelet Count 342 10^3/uL 150-450 Mean Platelet Volume 8 um3 7.4-10.4 Abs Neutrophils 5.1 10^3/uL 1.5-7.7 Abs Lymphocytes 3.6 10^3/uL 1.0-4.8 Abs Monocytes 0.9 10^3/uL High 0-0.8 Abs Eosinophils 0.3 10^3/uL 0-0.6 Abs Basophils 0.1 10^3/uL 0-0.2 Abs Nucleated RBC 0.01 10^3/uL Granulocyte % 51.3 % 38-83 Lymphocyte % 35.9 % 25-47 Monocyte % 8.8 % 1-9 Eosinophil % 3.5 % 0-6 Basophil % 0.5 % 0-2 Nucleated Red Blood Cells % 0.1 CBC Auto Diff 10/20/2013 White Blood Count 12.7 10^3/uL High 4.8-10.8 Red Blood Count 4.07 10^6/uL 4.0-5.4 Hemoglobin 11.5 g/dL Low 12.0-16.0 Hematocrit 35 % 35-47 Mean Corpuscular Volume 87 fL 80-97 Mean Corpuscular Hemoglobin 28 pg 27-31 Mean Corpuscular HGB Conc 33 g/dL 31-36 Red Cell Distribution Width 14 % 10.5-15 Platelet Count 250 10^3/uL 150-450 Mean Platelet Volume 8 um3 7.4-10.4 Abs Neutrophils 8.4 10^3/uL High 1.5-7.7 Abs Lymphocytes 2.9 10^3/uL 1.0-4.8 Abs Monocytes 1.1 10^3/uL High 0-0.8 Abs Eosinophils 0.2 10^3/uL 0-0.6 Abs Basophils 0.2 10^3/uL 0-0.2 Abs Nucleated RBC 0.01 10^3/uL Granulocyte % 65.7 % 38-83 Lymphocyte % 22.5 % Low 25-47 Monocyte % 8.7 % 1-9 Eosinophil % 1.7 % 0-6 Basophil % 1.4 % 0-2 Nucleated Red Blood Cells % 0.1 Affirm Vaginal Dna Probe 10/20/2013 Affirm Vaginal Dna Probe (SEE NOTE) 52 Type & Screen 10/20/2013 Patient Blood Type O Positive Antibody Screen NEGATIVE Laboratory test finding 10/20/2013 Magnesium 1.9 mg/dL 1.7-2.6 Lactic Acid 1.3 mmol/L 0.5-1.6 Lipase 33 U/L 22-51 C Reactive Protein 0.7 mg/dL High Less than 0.5 Comp Metabolic Panel 10/20/2013 Sodium 138 mmol/L 133-145 Potassium 3.7 mmol/L 3.5-5.0 Chloride 109 mmol/L 101-111 Co2 Carbon Dioxide 20.0 mmol/L Low 22-32 Anion Gap 9.0 mmol/L 2-11 Glucose 93 mg/dL 70-100 Blood Urea Nitrogen 13 mg/dL 6-24 Creatinine 0.60 mg/dL 0.50-1.40 BUN/Creatinine Ratio 21.7 High 8-20 Calcium 8.3 mg/dL 8.1-9.9 Total Protein 7.4 g/dL 6.2-8.1 Albumin 3.7 g/dL 3.6-5.4 Globulin 3.7 g/dL 2-4 Albumin/Globulin Ratio 1.0 1-3 Total Bilirubin 0.5 mg/dL 0.4-1.5 Alkaline Phosphatase 111 U/L High 30-110 Alt 15 U/L 14-54 Ast 15 U/L 12-42 Egfr Non- 113.1 >60 Egfr 145.5 >60 53 Laboratory test finding 10/20/2013 Serum Negative Negative 54 CBC Auto Diff 10/20/2013 White Blood Count 12.0 10^3/uL High 4.8-10.8 Red Blood Count 4.46 10^6/uL 4.0-5.4 Hemoglobin 12.4 g/dL 12.0-16.0 Hematocrit 39 % 35-47 Mean Corpuscular Volume 87 fL 80-97 Mean Corpuscular Hemoglobin 28 pg 27-31 Mean Corpuscular HGB Conc 32 g/dL 31-36 Red Cell Distribution Width 15 % 10.5-15 Platelet Count 304 10^3/uL 150-450 Mean Platelet Volume 8 um3 7.4-10.4 Abs Neutrophils 7.5 10^3/uL 1.5-7.7 Abs Lymphocytes 3.1 10^3/uL 1.0-4.8 Abs Monocytes 1.0 10^3/uL High 0-0.8 Abs Eosinophils 0.3 10^3/uL 0-0.6 Abs Basophils 0.1 10^3/uL 0-0.2 Abs Nucleated RBC 0.01 10^3/uL Granulocyte % 62.3 % 38-83 Lymphocyte % 26.0 % 25-47 Monocyte % 8.5 % 1-9 Eosinophil % 2.5 % 0-6 Basophil % 0.7 % 0-2 Nucleated Red Blood Cells % 0.1 Urine Microscopic 10/20/2013 Urine WBC 1+ (<10 /hpf) None Seen Urine RBC 3+ (>10 /hpf) None Seen Urine Epithelial Cells 1+ Squamous /hpf None Seen Bacteria Urine None Seen None Seen Urinalysis 10/20/2013 Urine Color Yellow Urine Appearance Clear Urine Specific [place] 1.019 1.010-1.030 Urine Esterase Negative Negative Urine Nitrate Negative Negative Urine Urobilinogen Negative E.U./dL Negative Urine Protein Negative mg/dL Negative Urine pH 5.5 5-9 Urine Blood 3+ Negative Urine Ketones Negative mg/dL Negative Urine Bilirubin Negative Negative Urine Glucose Negative mg/dL Negative GC/Chlamydia Amplified Rna 10/20/2013 GC/Chlamydia Rna (SEE NOTE) 55 Laboratory test finding 06/27/2013 Strep Screen neg Neg Urine DIP 05/13/2013 Leukocytes ++ Neg Urine Nitrites neg Neg Urine pH 5 5-6 Total Protein, Urine trace Neg Urine Glucose norm Norm Urine Ketones neg Neg Urobilinogen norm Norm Urine Bilirubin neg Neg Urine Blood trace Neg Specific [place] 1.015 1.01-1.02 1 SEE RESULT BELOW Name: GABE REED : [address]: Alejandro Whitley MD Acct: [id number] Unit: [id number] AGE: 43 Location: [place] [address] Re06/05/18 Dis: 06/08/18 SEX: F Status: DIS IN SPEC: [id number] RIGO: 06/06/18- SUBM DR: Francheska Santana DO REQ: [id number] RECD: 06/06/18 STATUS: STEVO MYRICK DR: Alejandro Boyer BUSINESS TECHNOLOGY TEACHER _ ORDERED: LEVEL 4/3 FINAL DIAGNOSIS 1. Small intestine, biopsy: -- Benign small intestinal mucosa with no significant pathologic abnormalities. -- No evidence of villous blunting or increased intraepithelial lymphocytes. 2. Gastric pouch, biopsy: -- Body-type gastric mucosa with mild chronic gastritis and reactive chemical gastropathy. -- No evidence of Helicobacter organisms. 3. Gastroesophageal junction, biopsy: -- Squamous and columnar mucosa with chronic inflammation and intestinal metaplasia. -- Dysplasia is absent. CLINICAL HISTORY 43 year old female with multiple abdominal surgeries, recurrent small bowel obstructions and CT on this admission reveals stool (moderate amount), presents with abdominal pain POST-OPERATIVE DIAGNOSIS EGD: normal blind pouch and efferent loop ? biopsy; normal gastric remnant ? CLOtest; normal mid and proximal esophagus; irregular gastroesophageal junction at 35 cm ? biopsy GROSS DESCRIPTION 1. The specimen is received in formalin labeled, Biopsy Small Intestine, and consists of three nevarez white irregular soft tissue fragments aggregating 0.7 x 0.5 x 0.1 cm which are submitted entirely in one cassette. 2. The specimen is received in formalin labeled, Biopsy Gastric Pouch, and consists of a 0.6 x 0.2 by up to 0.2 cm nevarez-white irregular soft tissue fragment which is submitted CONTINUED ON NEXT PAGE DEPARTMENT OF PATHOLOGY, [address] [place] [address] Anuj Solis M.D. Director [facility] # [id number] RUN DATE: 06/08/18 [facility] LAB LIVE PAGE 2 Patient: GABE REED [id number] (Continued) GROSS DESCRIPTION (Continued) GROSS DESCRIPTION (Continued) entirely in one cassette. 3. The specimen is received in formalin labeled, Biopsy [facility], and consists of a 0.4 x 0.2 x 0.1 cm nevarez-white irregular soft tissue fragment which is submitted entirely in one cassette. Signed by and Reported on: Genesis Alvarez MD 06/08/18 1542 END OF REPORT DEPARTMENT OF PATHOLOGY, [address] [place] [address] Anuj Solis M.D. Director [facility] # [id number] 2 Acute inflammation: >10.00 3 [facility] Severe Sepsis and Septic Shock Management Bundle Measure requires all lactic acids initially measuring >2.0 mmol/L be repeated. 4 Because ethnic data is not always [...] 15-29 5 Kidney failure <15 (or dialysis) 5 [facility] Severe Sepsis and Septic Shock Management Bundle Measure requires all lactic acids initially measuring >2.0 mmol/L be repeated. 6 Because ethnic data is not always readily [...] 15-29 5 Kidney failure <15 (or dialysis) 7 Acute inflammation: >10.00 8 <5.0 Negative 5.0 - 25.0 Indeterminate (Repeat testing recommended after 72 hours) >25.0 Positive Perimenopausal women can display HCG levels of up to 20 mIU/mL 9 SEE RESULT BELOW Name: GABE REED : [address]: Alejandro Whitley MD Acct: [id number] Unit: [id number] AGE: 42 Location: [place] [address] Re03/27/18 SEX: F Status: ADM IN SPEC: [id number] RIGO: 03/27/[address]: Umang Charles MD REQ: [id number] RECD: 03/27/18 STATUS: COMP ELEN DR: Bre Boyer BUSINESS TECHNOLOGY TEACHER _ SOURCE: URINE SPDESC: ORDERED: Urine Culture Procedure Result Reported Site Urine Culture Final 03/28/18- 1213 ML No Growth (<1,000 CFU/mL) * ML - Main Lab . END OF REPORT DEPARTMENT OF PATHOLOGY, [address] [place] [address] Anuj Solis M.D. Director [facility] # [id number] 10 Because ethnic data is not always readily [...] 15-29 5 Kidney failure <15 (or dialysis) 11 Acute inflammation: >10.00 12 [facility] Severe Sepsis and Septic Shock Management Bundle Measure requires all lactic acids initially measuring >2.0 mmol/L be repeated. 13 SEE RESULT BELOW Name: REEDSUKHJINDERKD : [address]: Don Bush MD Acct: [id number] Unit: [id number] AGE: 42 Location: ED Re02/07/18 SEX: F Status: DEP ER SPEC: [id number] RIGO: 02/07/18-[address] [facility] [address]: Don Bush MD REQ: [id number] RECD: 02/07/18 STATUS: RES [facility] DR: Bre Boyer BUSINESS TECHNOLOGY TEACHER _ SOURCE: ABDOMEN SPDESC: ORDERED: MRSA/SA SSTI, Culture Stain Procedure Result Reported Site MRSA/S. aureus SSTI PCR PENDING Wound/Misc Gram Stain Final 02/07/18- 627 ML 4+ Neutrophils 4+ Nucleated Cells 3+ Gram Positive Cocci Intracellular Wound/Misc Culture PENDING * ML - Main Lab . END OF REPORT DEPARTMENT OF PATHOLOGY, [address] [place] [address] Anuj Solis M.D. Director [facility] # [id number] 14 SEE RESULT BELOW Name: GABE REED : [address]: Don Bush MD Acct: [id number] Unit: [id number] AGE: 42 Location: ED Re02/07/18 SEX: F Status: DEP ER SPEC: [id number] RIGO: 02/07/18-[address] [facility] [address]: Don Bush MD REQ: [id number] RECD: 02/07/18 STATUS: LIZETH MYRICK DR: Bre Boyer BUSINESS TECHNOLOGY TEACHER _ SOURCE: ABDOMEN SPDESC: ORDERED: MRSA/SA SSTI, Culture Stain COMMENTS: Verbal to [id number] by [id number] at 1823 on 02/07/18. Results read back accurately. Procedure Result Reported Site MRSA/S. aureus SSTI PCR Final 02/07/18- 1823 ML Organism 1 MRSA NEGATIVE Organism 2 S.AUREUS POSITIVE Wound/Misc Gram Stain Final 02/07/18- 1711 ML 4+ Neutrophils 4+ Nucleated Cells 3+ Gram Positive Cocci Intracellular Wound/Misc Culture Final 02/09/18- 1029 ML Organism 1 STAPHYLOCOCCUS AUREUS Quantity 3+ 1. STAPHYLOCOCCUS AUREUS M.I.C. RX --------- ------ Penicillin >=0.5 R Clindamycin <=0.25 S Erythromycin <=0.25 S Gentamicin <=0.5 S Linezolid 2 S Oxacillin 0.5 S * Quinupristin/Dalfopristin <=0.25 S Rifampin <=0.5 S Tetracycline <=1 S Doxycycline - Deduced S CONTINUED ON NEXT PAGE DEPARTMENT OF PATHOLOGY, [address] [place] [address] Anuj Solis M.D. Director [facility] # [id number] Patient: GABE REED [id number] (Continued) Specimen: [id number] Collected: 02/07/18-1620 Received: 02/07/18-1640 (Continued) Procedure Result Reported Site Wound/Misc Culture Final (continued) 02/09/18- 1028 1. STAPHYLOCOCCUS AUREUS (continued) M.I.C. RX --------- ------ * Minocycline - Deduced S Trimethoprim/Sulfamethoxazole <=10 S Vancomycin 1 S Imipenem-Deduced S * Ampicillin/Sulbactam-Deduced S Cefazolin-Deduced S * These antibiotics are not available in the [facility] Formulary Contact the Microbiology Department for any additional antibiotic reporting. * - Main Lab . END OF REPORT DEPARTMENT OF PATHOLOGY, [address] [place] [address] Anuj Solis M.D. Director [facility] # [id number] 15 Because ethnic data is not always readily [...] 15-29 5 Kidney failure <15 (or dialysis) 16 Acute inflammation: >10.00 17 SEE RESULT BELOW Name: GABE REED : [address]: Don Bush MD Acct: [id number] Unit: [id number] AGE: 42 Location: ED Re02/07/18 SEX: F Status: DEP ER SPEC: [id number] RIGO: 02/07/18-[address] [facility] [address]: Don Bush MD REQ: [id number] RECD: 02/07/18-6848 STATUS: COMP [facility] : Bre Boyer BUSINESS TECHNOLOGY TEACHER _ SOURCE: BLOOD,VENO SPDESC: ORDERED: Blood Cult Procedure Result Reported Site Aerobic Culture Bottle Final 02/12/18- 1431 ML No Growth Day 5 Anaerobic Culture Bottle Final 02/12/18- 1431 ML No Growth Day 5 * ML - Main Lab . END OF REPORT DEPARTMENT OF PATHOLOGY, [address] [place] [address] Anuj Solis M.D. Director [facility] # [id number] 18 RBC Frag/Micro 19 Because ethnic data is not always readily [...] 15-29 5 Kidney failure <15 (or dialysis) 20 Acute inflammation: >10.00 21 <5.0 Negative 5.0 - 25.0 Indeterminate (Repeat testing recommended after 72 hours) >25.0 Positive Perimenopausal women can display HCG levels of up to 20 mIU/mL 22 [facility] Severe Sepsis and Septic Shock Management Bundle Measure requires all lactic acids initially measuring >2.0 mmol/L be repeated. 23 Because ethnic data is not always readily [...] 15-29 5 Kidney failure <15 (or dialysis) 24 Mild anisocytosis and macrocytosis noted. Mild reactive monocytosis noted. Clinical correlation and additional studies as warranted. Reviewed by Dr. Solis 25 [facility] Severe Sepsis and Septic Shock Management Bundle Measure requires all lactic acids initially measuring >2.0 mmol/L be repeated. 26 Because ethnic data is not always readily [...] 15-29 5 Kidney failure <15 (or dialysis) 27 Acute inflammation: >10.00 28 <5.0 Negative 5.0 - 25.0 Indeterminate (Repeat testing recommended after 72 hours) >25.0 Positive Perimenopausal women can display HCG levels of up to 20 mIU/mL 29 [facility] Severe Sepsis and Septic Shock Management Bundle Measure requires all lactic acids initially measuring >2.0 mmol/L be repeated. 30 Reference ranges based on room air. 31 Critical Result LACT:2.1 Called to [id number] at: 03:32:43 by:[id number] Read back by:[id number] [facility] Severe Sepsis and Septic Shock Management Bundle Measure requires all lactic acids initially measuring >2.0 mmol/L be repeated. 32 THE AMYLASE IS A VERBAL ORDER FROM ED 33 THE AMYLASE IS A VERBAL ORDER FROM ED 34 Because ethnic data is not always readily [...] 15-29 5 Kidney failure <15 (or dialysis) 35 SEE RESULT BELOW Name: GABE REED : [address]: John Ohara MD Acct: [id number] Unit: [id number] AGE: 42 Location: [facility] [id number] Re12/02/17 SEX: F Status: ADM IN SPEC: [id number] RIGO: 12/01/[address] [facility] [address]: Turner Sharp MD REQ: [id number] RECD: 12/02/17 STATUS: LIZETH MYRICK DR: Bre Boyer BUSINESS TECHNOLOGY TEACHER _ SOURCE: URINE SPDESC: ORDERED: Urine Culture Procedure Result Reported Site Urine Culture Final 12/05/17- 0854 ML Organism 1 ESBL ESCHERICHIA COLI Coram Count 50-75,000 (Many) CFU/ML Organism 2 NORMAL DEELMIRA Coram Count 1-10,000 (Few) CFU/ML This isolate is an Extended Spectrum Beta-Lactamase Plywood Layup Line Back Feeder (ESBL) strain, and as such is considered resistant for all penicillins, cephalosporins and aztreonam. 1. ESBL ESCHERICHIA COLI M.I.C. RX --------- ------ Ampicillin >=32 R Cefazolin >=64 R Cefepime R Ceftriaxone >=64 R Ciprofloxacin >=4 R Gentamicin <=1 S Levofloxacin >=8 R Meropenem <=0.25 S Nitrofurantoin <=16 S Tetracycline <=1 S Pipercillin/Tazobactam <=4 S Trimethoprim/Sulfamethoxazole <=20 S Amoxicillin/Clavulanic Acid 4 S Aztreonam R CONTINUED ON NEXT PAGE * ML=Testing performed at Main Lab DEPARTMENT OF PATHOLOGY, [address] [place] [address] Anuj Solis M.D. Director [facility] # [id number] Patient: GABE REED [id number] (Continued) Specimen: [id number] Collected: 12/01/17 Received: 12/02/17-0009 (Continued) Procedure Result Reported Site Urine Culture Final (continued) Contact the Microbiology Department for any additional antibiotic reporting. * ML - MAIN LAB ([facility]) . END OF REPORT * ML=Testing performed at Main Lab DEPARTMENT OF PATHOLOGY, [address] [place] [address] Anuj Solis M.D. Director [facility] # [id number] 36 *Ascorbic acid is present which may interfere with detection of blood. 37 Because ethnic data is not always readily [...] 15-29 5 Kidney failure <15 (or dialysis) 38 Acute inflammation: >10.00 39 Reference Range and Interpretation: TnI (ng/mL) Interpretation Less Than 0.03 ng/mL Not supportive of diagnosis of PA 0.03 - 0.50 ng/mL Indeterminate: suggest serial studies if clinically indicated. Greater than 0.5 ng/mL Consistent with diagnosis of PA 40 Because ethnic data is not always readily [...] 15-29 5 Kidney failure <15 (or dialysis) 41 Because ethnic data is not always readily [...] 15-29 5 Kidney failure <15 (or dialysis) 42 SEE RESULT BELOW Name: GABE REED : [address]: Dixon Parry MD Acct: [id number] Unit: [id number] AGE: 40 Location: ENDO Re08/11/15 SEX: F Status: REG REF SPEC: [id number] RIGO: 08/11/15- SUBM DR: Dixon Parry MD REQ: [id number] RECD: 08/11/15 STATUS: STEVO MYRICK DR: Alejandro Boyer BUSINESS TECHNOLOGY TEACHER _ ORDERED: H [facility], LEVEL IV FINAL DIAGNOSIS Stomach, greater curvature, biopsy: -- Moderate to severe chronic, active Helicobacter pylori gastritis. COMMENT: An H. pylori immunostain, with appropriately reacting controls, is positive for Helicobacter organisms. Dr. Solis reviewed this case in intradepartmental consultation and agrees with the diagnosis. CLINICAL HISTORY No problems, GERD, Zantac BID age 22. ? ulcers, [place], UGI at 19, GB 2010, hernia right groin age 14, lithotripsy 2011 [place]. For EGD POST-OPERATIVE DIAGNOSIS EGD - larynx symmetric, Esophagus normal EG 36 small wide hiatal hernia with erosion at 2. Stomach chronic gastritis ductal body, pylorus, antrum, fundus, Duodenum - normal. Conclusion: 1. Hiatal hernia, 2. GERD, 3. Chronic gastritis. GROSS DESCRIPTION The specimen is received in formalin labeled, Gastric Greater Curvature Biopsies, and consists of two nevarez-pink irregular soft tissue fragments measuring 0.3 x 0.2 x 0.2 cm and 0.5 x 0.2 x 0.1 cm, which are submitted entirely in one cassette. Signed (signature on file) Genesis Alvarez MD 1138 END OF REPORT * ML=Testing performed at Main Lab DEPARTMENT OF PATHOLOGY, [address] [place] [address] Anuj Solis M.D. Director [facility] # [id number] 43 SEE RESULT BELOW Name: GABE REED : [address]: Dixon Parry MD Acct: [id number] Unit: [id number] AGE: 40 Location: ENDO Re08/11/15 SEX: F Status: REG REF SPEC: [id number] RIGO: 08/11/15-[address]: Dixon Parry MD REQ: [id number] RECD: 08/11/15-1011 STATUS: COMP OTHR DR: Bre Boyer BUSINESS TECHNOLOGY TEACHER _ SOURCE: [facility]: ORDERED: Clotest Procedure Result Verified Site Clotest Final 08/12/15734 ML Clotest Positive * ML - MAIN LAB ([facility]) . END OF REPORT * ML=Testing performed at Main Lab DEPARTMENT OF PATHOLOGY, [address] [place] [address] Anuj Solsi M.D. Director [facility] # [id number] 44 SEE RESULT BELOW Name: GABE REED : [address]: Bjorn Blunt MD Acct: [id number] Unit: [id number] AGE: 40 Location: [place] [address]- Re07/02/15 Dis: 07/03/15 SEX: F Status: DIS Chan SPEC: [id number] RIGO: 07/02/[address] [facility] [address]: Annetta Hodges MD REQ: [id number] RECD: 07/02/15 STATUS: LIZETH MYRICK DR: [facility] Bre Boyer NP _ SOURCE: URINE SPDESC: ORDERED: Urine Culture Procedure Result Verified Site Urine Culture Final 07/04/15- 1131 ML Organism 1 NORMAL EDELMIRA Coram Count >100,000 (Many) CFU/ML * ML - MAIN LAB ([facility]) . END OF REPORT * ML=Testing performed at Main Lab DEPARTMENT OF PATHOLOGY, [address] [place] [address] Anuj Solis M.D. Director [facility] # [id number] 45 Because ethnic data is not always readily [...] 15-29 5 Kidney failure <15 (or dialysis) 46 Desirable <150 Borderline high 150-199 High 200-499 Very High >500 47 Desirable <200 Borderline high 200-239 High >239 48 Low <40 Desirable: 40-60 High: >60 49 Desirable: <100 mg/dL Near Optimal: 100-129 mg/dL Borderline High: 130-159 mg/dL High: 160-189 mg/dL Very High: >189 mg/dL 50 Therapeutic target for the treatment of diabetes Mellitus patients is <7% HBA1C, and in selective patients <6.0%.Please refer to [place] [employer] Diabetic care guidelines for further information. 51 RUN DATE: 04/28/14 [facility] LAB LIVE PAGE 1 RUN TIME: 12[address] [place], [place] [address] Specimen Inquiry Name: GABE REED : [address]: Della Ferraro NP Acct: [id number] Unit: [id number] AGE: 38 Location: [facility] Re03/31/14 SEX: F Status: REG REF SPEC: [id number] RIGO: 03/31/14-[address]: Della Ferraro NP REQ: [id number] RECD: 04/01/14 STATUS: COMP _ SOURCE: SKIN SCRAP SPDESC: ORDERED: Dani Hilario QUERIES: [employer] Number [id number] Procedure Result Verified Site Fungal Cult Skin/Hair/Nails Final 04/28/14- 1228 ML Fungal Culture No Growth of Mycotic Organisms 3 weeks No growth in 4 weeks END OF REPORT * ML=Testing performed at Main Lab DEPARTMENT OF PATHOLOGY, [facility] [employer] [place], [place] [address] Anuj Solis M.D. Director [facility] # [id number] 52 RUN DATE: 10/21/13 [facility] LAB LIVE PAGE 1 RUN TIME: 2340 [facility] [address] [place], [place] [address] Specimen Inquiry Name: GABE REED : [address]: Foster Gonzáles DO Acct: [id number] Unit: [id number] AGE: 38 Location: ED Re10/20/13 SEX: F Status: DEP ER SPEC: [id number] RIGO: 10/20/13-[address] [facility] [address]: Foster Gonzáles DO REQ: [id number] RECD: 10/20/133788 STATUS: LIZETH MYRICK DR: Bre Boyer BUSINESS TECHNOLOGY TEACHER _ SOURCE: VAGINAL SPDESC: ORDERED: Affirm Procedure Result Verified Site Affirm Vaginal DNA Probe Final 10/21/13- 1547 ML Organism 1 Negative Trichomonas Organism 2 Negative Gardnerella Organism 3 Negative Anne Marie The presence of G. vaginalis, although suggestive, is not diagnostic for bacterial vaginosis. Results should be interpreted in conjunction with other clinical and laboratory data available. Women with vaginal discharge should be evaluated for risk factors of cervicitis and pelvic inflammatory disease, toxic shock syndrome (S.aureus), and if present, evaluated for organisms not included in this assay such as N. gonorrhoeae, C. trachomatis, Mobiluncus, Mycoplasma and/or Prevotella. Mixed infections may occur. The performance of this test on patient specimens collected during or immediately after antimicrobial therapy is unknown. The presence or absence of Anne Marie species, G. vaginalis or T. vaginalis cannot be used as a test for therapeutic success or failure. END OF REPORT * ML=Testing performed at Main Lab DEPARTMENT OF PATHOLOGY, [address] [place] [address] Anuj Solis M.D. Director [facility] Permit #[id number] 53 Because ethnic data is not always readily [...] 15-29 5 Kidney failure <15 (or dialysis) 54 This test detects intact HCG only and is indicated for the early detection of . 55 RUN DATE: 10/22/13 [facility] LAB LIVE PAGE 1 RUN TIME: [address] [place] [address] Specimen Inquiry Name: REEDVANDA : [address]: Foster Gonzáles DO Acct: [id number] Unit: [id number] AGE: 38 Location: ED Re10/20/13 SEX: F Status: DEP ER SPEC: [id number] RIGO: 10/20/[address] [facility] [address]: Foster Gonzáles DO REQ: [id number] RECD: 10/20/133954 STATUS: LIZETH MYRICK DR: Bre Boyer NP _ SOURCE: ENDOCERVIX SPDESC: ORDERED: GC/Chlam RNA Procedure Result Verified Site Chlamydia Trachomatis RNA Final 10/22/13- 1223 ML NEGATIVE for Chlamydia trachomatis rRNA GC (N. gonorrhoeae) RNA Final 10/22/13- 1230 ML NEGATIVE for Neisseria gonorrhoeae rRNA A negative result does not preclude the presence of a C. trachomatis or N. gonorrhoeae infection because results are dependent on adequate specimen collection, absence of inhibitors, and sufficient rRNA to be detected. Test results may be affected by improper specimen collection, improper storage, technical error, or specimen mixup. Limitations of the Procedure: The Aptima Combo 2 Assay is not intended for the evaluation of suspected sexual abuse or for other medico-legal indications. For those patients for whom a false positive result may have adverse psychosocial impact, the CDC recommends retesting by a method using an alternate technology. Therapeutic failure or success cannot be determined with the Aptima Combo 2 Assay since nucleic acid may persist following appropriate antimicrobial therapy. Results from the Aptima Combo 2 Assay should be interpreted in conjunction with other laboratory and clinical data available to the clinican. Performance characteristics for detecting C. trachomatis and CONTINUED ON NEXT PAGE * ML=Testing performed at Main Lab DEPARTMENT OF PATHOLOGY, [facility] [employer] [place], [place] [address] Anuj Solis M.D. Director [facility] Permit #[id number] RUN DATE: 10/22/13 [facility] LAB LIVE PAGE 2 RUN TIME: 1231 [facility] [address] [place], [place] [address] Specimen Inquiry Patient: GABE REED [id number] (Continued) Specimen: [id number] Collected: 10/20/13-111 Received: 10/20/13-2284 (Continued) Procedure Result Verified Site GC (N. gonorrhoeae) RNA Final (continued) 10/22/13- 1230 N. gonorrhoeae are derived from high prevalence populations. Positive results in low prevalence populations should be interpreted carefully with the understanding that the likelihood of a false positive may be higher than a true positive. END OF REPORT * ML=Testing performed at Main Lab DEPARTMENT OF PATHOLOGY, [address] [place] [address] Anuj Solis M.D. Director [facility] Permit #[id number] Procedures Description No Information Encounters Type Date Location Provider CPT E/M Dx Office Visit 06/15/2018 2:30p [place] [address] F31.81 F90.0 Office Visit 11/17/2015 2:15p Main Office PAIGE Askew 36871 R03.0 Office Visit 07/04/2015 9:30a Main Office John Mike M.D. 44503 592.0 Office Visit 06/08/2015 11:30a Main Office John Mike M.D. 68995 462 Office Visit 04/28/2015 11:30a Main Office PAIGE Askew 48235 278.00 Office Visit 03/31/2014 4:45p [facility] 11855 782.9 Office Visit 12/12/2013 8:30a Main Office Leny Hester M.D. 93375 780.4 Office Visit 06/27/2013 12:00p Main Office Jennifer Cowan M.D. 27259 112.0 782.1 Office Visit 05/13/2013 1:30p Main Office [facility] G0438 V70.0 Plan of Care 07/11/2018 - Jono Sheffield MDF31.81 Bipolar II disorderComments:Will plan to continue the medications she has been taking. her symptoms have been stable. She will have her intake next week with psychiatry.F90.0 Attn-defct hyperactivity disorder, predom inattentive typeComments:Doing OK on 20 mg BID of adderall. she would like to continue this dosage. I ordered another month at this dosage.
[2018-07-28] MEDS ORDERED: Metoclopramide IV* 5 MG/ML 2 ML VIAL IV ONE (19:43)
[2018-07-28] MEDS ORDERED: HYDROmorphone INJ1* 1 MG/ML SYRINGE IV SLOW PU ONE (19:43)
[2018-07-28] MEDS ORDERED: NS 0.9% 1000 ML* 2,000 ML IV ONE (19:45)
--- NOTE | 2018-07-28 19:48 | ED ---
Abdominal Pain/Female - HPI Summary HPI Summary: 43 year old F presenting to [facility] complains of abdominal pain since yesterday. The patient rates the pain 9/10 in severity. Symptoms aggravated by nothing. Symptoms alleviated by nothing. Patient reports abdominal distension, vomiting, and bilateral lower extremity edema. Patient had gastric bypass done by Dr. Whitley, surgery, in January 2018. Patient has her G-tube drained by dean catheter whenever she has these symptoms every 2-3 months. - History of Current Complaint Chief Complaint: EDAbdPain Stated Complaint: ABD PAIN/BLOATING Time Seen by Provider: 07/28/18 19:29 Hx Obtained From: Patient Onset/Duration: Lasting Days - 1, Still Present Timing: Constant Severity Currently: Severe Pain Intensity: 9 Pain Scale Used: 0-10 Numeric Aggravating Factor(s): Nothing Alleviating Factor(s): Nothing Associated Signs and Symptoms: Positive: Other: - abdominal distension, vomiting , and bilateral lower extremity edema Allergies/Adverse Reactions: Allergies Allergy/AdvReac Type Severity Reaction Status Date / Time cephalexin Allergy Unknown Verified 07/28/18 18:31 Reaction Details penicillin G Allergy Anaphylatic Verified 07/28/18 18:31 Shock Penicillins Allergy Unknown Verified 07/28/18 18:31 Reaction Details PMH/Surg Hx/FS Hx/Imm Hx Previously Healthy: No Endocrine/Hematology History: Denies: Hx Anticoagulant Therapy, Hx Blood Disorders, Hx Diabetes Cardiovascular History: Denies: Hx Hypertension, Hx Pacemaker/ICD Respiratory History: Denies: Hx Asthma GI History: Reports: Hx Hiatal Hernia, Hx Obstructive Bowel, Other GI Disorders - RECENTLY TREATED FOR H PYLORI-09/2015 Denies: Hx Gastroesophageal Reflux Disease History: Reports: Hx Kidney Stones Denies: Hx Dialysis, Hx Renal Disease Sensory History: Reports: Hx Contacts or Glasses Denies: Hx Hearing Aid Opthamlomology History: Reports: Hx Contacts or Glasses Neurological History: Denies: Other Neuro Impairments/Disorders Psychiatric History: Reports: Hx Anxiety, Hx Attention Deficit Hyperactivity Disorder, Hx Depression, Hx Bipolar Disorder, Other Psychiatric Issues/ Disorders - bipolar Denies: Hx Panic Disorder - Surgical History Surgery Procedure, Year, and Place: GASTRIC BYPASS 10/28/15, TUBES TIED, JOHN, HERNIA REPAIR, laporotomy. Hernia repair and SBO 12/02/17, 12/05/17, 02/06/18 Hx Anesthesia Reactions: No - Immunization History Date of Tetanus Vaccine: UTD per pt Infectious Disease History: No Infectious Disease History: Denies: Traveled Outside the [place] in Last 30 Days - Family History Known Family History: Positive: Hypertension Negative: Cardiac Disease - Social History Alcohol Use: None Hx Substance Use: No Substance Use Type: Reports: None Hx Tobacco Use: No Smoking Status (MU): Never Smoked Tobacco Have You Smoked in the Last Year: No Review of Systems Positive: Abdominal Pain, Vomiting, Other - abdominal distension Positive: Other - bilateral lower extremity edema All Other Systems Reviewed And Are Negative: Yes Physical Exam - Summary Physical Exam Summary: VITAL SIGNS: Reviewed. GENERAL: Patient is a well-developed and nourished female who is lying comfortable in the stretcher. Patient is not in any acute respiratory distress. HEAD AND FACE: No signs of trauma. No ecchymosis, hematomas or skull depressions. No sinus tenderness. EYES: PERRLA, EOMI x 2, No injected conjunctiva, no nystagmus. EARS: Hearing grossly intact. Ear canals and tympanic membranes are within normal limits. MOUTH: Oropharynx within normal limits. NECK: Supple, trachea is midline, no adenopathy, no JVD, no carotid bruit, no c- spine tenderness, neck with full ROM. CHEST: Symmetric, no tenderness at palpation LUNGS: Clear to auscultation bilaterally. No wheezing or crackles. CVS: Regular rate and rhythm, S1 and S2 present, no murmurs or gallops appreciated. ABDOMEN: Patient's abdomen is distended and diffusely tender. She has hyperactive bowel sounds EXTREMITIES: FROM in all major joints, no edema, no cyanosis or clubbing. NEURO: Alert and oriented x 3. No acute neurological deficits. Speech is normal and follows commands. SKIN: Dry and warm Triage Information Reviewed: Yes Vital Signs On Initial Exam: Initial Vitals Temp Pulse Resp BP Pulse Ox 98.7 F 84 20 126/72 100 07/28/18 18:31 07/28/18 18:31 07/28/18 18:31 07/28/18 18:31 07/28/18 18:31 Vital Signs Reviewed: Yes Procedures - Procedure Summary Procedure Summary: Tom-olson was taken out and replaced by 16 Sami dean catheter, attached to intermittent suction Diagnostics - Vital Signs Vital Signs Temp Pulse Resp BP Pulse Ox 07/28/18 18:31 98.7 F 84 20 126/72 100 - Laboratory Result Diagrams: 07/28/18 19:56 07/28/18 19:56 Lab Statement: Any lab studies that have been ordered have been reviewed, and results considered in the medical decision making process. - CT Abd/Pel CT Interpretation Completed By: Radiologist - 1. Enteroenteric anastomosis intussusception likely transient. Additional findings suggesting a partial small bowel obstruction with transition point in the mid abdomen. No perforation or ischemia. ED physician has reviewed this report. 2. Nonobstructing left renal calculus. Re-Evaluation - Re-Evaluation First Eval Re-Evaluation Time: 23:37 Comment: Patient is agreeable to admission Abdominal Pain Fem Course/Dx - Course Course Of Treatment: 43 year old F presenting to [facility] complains of abdominal pain since yesterday. In ED course, patient was given Dilaudid and Reglan. Patient's tom-olson was taken out and replaced by dean catheter, which was attached to intermittent suction. CT Abd/Pel showed 1. Enteroenteric anastomosis intussusception likely transient. Additional findings suggesting a partial small bowel obstruction with transition point in the mid abdomen. No perforation or ischemia. Discussed patient case with Dr. Tran, who agreed to admit patient. Patient will be admitted to Dr. Tran. She is agreeable to admission. - Diagnoses Provider Diagnoses: SBO (small bowel obstruction), Abdominal pain - Provider Notifications Discussed Care Of Patient With: Hai Tran Time Discussed With Above Provider: 19:42 Instructed by Provider To: Other - Dr. Tran, surgery, advises to proceed with normal ED workup. At 23:33, Dr. Tran agreed to admit patient. Discharge - Sign-Out/Discharge Documenting (check all that apply): Patient Departure - Admit - Discharge Plan Condition: Fair Disposition: ADMITTED TO [facility] Referrals: Bre Boyer, NEWS TECHNICAL DIRECTOR [Primary Care Provider] - - Attestation Statements Document Initiated by Scribe: Yes Documenting Scribe: Milli Post Provider For Whom Scribe is Documenting (Include Credential): Umang Charles MD Scribe Attestation: Milli Zuniga, scribed for Umang Charles MD on 07/28/18 at 2333.
[2018-07-28 20:07] LABS: ABS Basophils 0.1 10^3/ul (0-0.2); ABS Eosinophils 0.2 10^3/ul (0-0.6); ABS Lymphocytes 3.5 10^3/ul (1.0-4.8); ABS Monocytes 1.3 10^3/ul (0-0.8); ABS Neutrophils 5.4 10^3/ul (1.5-7.7); ABS Nucleated RBC 0 10^3/ul; Eosinophil % 2.3 % (0-6); Hematocrit 34 % (35-47); Hemoglobin 11.6 g/dl (12.0-16.0); Lymphocyte % 33.1 % (25-47); Mean Corpuscular HGB Conc 35 g/dl (31-36); Mean Corpuscular Hemoglobin 31 pg (27-31); Mean Corpuscular Volume 91 fL (80-97); Mean Platelet Volume 7.7 um3 (7.4-10.4); Nucleated Red Blood Cells % 0; Platelet Count 201 10^3/ul (150-450); Red Cell Distribution Width 13 % (10.5-15); White Blood Count 10.7 10^3/ul (3.5-10.8)
[2018-07-28 20:15] LABS: INR 0.94 (0.77-1.02)
[2018-07-28 20:25] LABS: EGFR Non-African American 119.3 (>60)
[2018-07-28] MEDS ORDERED: Iohexol 300* (CONTRAST) 10 ML SDV IV ONE (20:56)
[2018-07-28 21:39] LABS: Urine Appearance Clear; Urine Blood Negative (Negative); Urine Color Yellow; Urine Ketones Negative (Negative); Urine Protein Negative (Negative); Urine Red Blood Cell Trace(0-2/hpf) (Absent); Urine Urobilinogen Negative (Negative); Urine White Blood Cell 1+(6-10/hpf) (Absent)
--- NOTE | 2018-07-28 23:21 | RAD ---
EXAM: CT Abdomen and Pelvis With Intravenous Contrast CLINICAL HISTORY: 43 years old, female; Signs and symptoms; Abdominal tenderness and bloating; Prior surgery; Surgery date: 6+ months; Surgery type: Bariatric sx/sbo x 2/hernia repairs; Patient HX: Gastric tube for drainage TECHNIQUE: Axial computed tomography images of the abdomen and pelvis with intravenous contrast. All CT scans at this facility use at least one of these dose optimization techniques: automated exposure control; mA and/or kV adjustment per patient size (includes targeted exams where dose is matched to clinical indication); or iterative reconstruction. Coronal and sagittal reformatted images were created and reviewed. CONTRAST: 72 mL of omnipaque 300 administered intravenously. COMPARISON: A/P W CT ABD/PEL W 06/04/2018 8:51 PM FINDINGS: Lung bases: Normal. No mass. No consolidation. ABDOMEN: Liver: Normal. No masses. Portal and hepatic veins are patent. Gallbladder and bile ducts: Surgically absent gallbladder. Pancreas: Normal. No mass. No ductal dilation. Spleen: Normal. No splenomegaly. Adrenals: Normal. No mass. Kidneys and ureters: Left lower renal pole not a calculus measuring 1.4 cm. No pelvocaliectasis or right renal calculi. Stomach and bowel: Patient post antecolic Cm-en-Y gastric bypass. Alimentary and pancreaticobiliary limbs are normal in caliber. A percutaneous gastrostomy tube is seen within the pancreaticobiliary limb. Short intussusception at the distal enteroenteric anastomosis is seen (series 601, image 34). No associated upstream dilation. Mildly dilated proximal small bowel loops measuring up to 3.3 cm with enteric contrast extending throughout the proximal small bowel. Possible focal transition point in the mid abdomen (series 601, image 34) with the small bowel loops past the transition normal in caliber with decreased intraluminal enteric contrast. No pneumatosis or mesenteric edema. Redundant colon. No segmental wall thickening or masses throughout the colon. PELVIS: Appendix: Surgically absent appendix. Bladder: Thin-walled bladder with no focal nodularity, perivesicular stranding, or calcifications. Reproductive: Uterus and ovaries are normal. ABDOMEN and PELVIS: Intraperitoneal space: Normal. No pneumoperitoneum. No ascities. Bones/joints: No fractures. No suspicious bone lesions. Soft tissues: Normal. No hernias. Vasculature: Normal caliber aorta with no evidence of dissection or rupture. Patent IVC. Lymph nodes: Normal. No enlarged lymph nodes. IMPRESSION: 1. Enteroenteric anastomosis intussusception likely transient. Additional findings suggesting a partial small bowel obstruction with transition point in the mid abdomen. No perforation or ischemia. 2. Nonobstructing left renal calculus.
[2018-07-28] MEDS ORDERED: HYDROmorphone INJ* 2 MG/ML CARPUJECT SYRINGE IV SLOW PU ONE (23:25)
[2018-07-29] MEDS: HYDROmorphone INJ1* 1 MG/ML SYRINGE IV SLOW PU PRN ×10 (01:51→19:28)
[2018-07-29] MEDS: NS 0.9% 1000 ML* 1,000 ML IV SCH ×3 (01:58→18:30)
[2018-07-29] MEDS: Ondansetron INJ* 2 MG/ML VIAL IV PRN ×3 (03:27→19:26)
[2018-07-29] MEDS ORDERED: Ketorolac INJ* 30 MG/ML 1 ML VIAL IV ONE (04:30)
[2018-07-29] MEDS ORDERED: Ketorolac INJ* 30 MG/ML 1 ML VIAL ONE (04:33)
[2018-07-29] MEDS ORDERED: Metoclopramide IV* 5 MG/ML 2 ML VIAL ONE (07:28)
[2018-07-29] MEDS ORDERED: Metoclopramide IV* 5 MG/ML 2 ML VIAL IV ONE (07:30)
[2018-07-29] MEDS: Metoclopramide IV* 5 MG/ML 2 ML VIAL IV PRN ×2 (14:26→22:37)
[2018-07-29] MEDS ORDERED: Scopolamine 1.5 mg* PATCH ONE (14:48)
[2018-07-29] MEDS ORDERED: Scopolamine 1.5 mg* PATCH TRANSDERM SCH (16:00)
--- NOTE | 2018-07-29 18:20 | HP ---
CC: [facility]; Bre Boyer NP * HISTORY AND PHYSICAL ADMISSION: DATE OF ADMISSION: 07/28/18 CHIEF COMPLAINT: Abdominal pain with nausea. HISTORY OF PRESENT ILLNESS: Ms. Ramses Verma is a 43-year-old woman, well known to the surgical service here at [facility], who had initially undergone a laparoscopic bypass surgery in 2014 with a significant amount of weight loss. She had moved away from the area and returned to the [facility] in November. In November, she presented with severe abdominal pain and nausea and was taken to the operative room for repair of an internal hernia. She was taken back to the operating room 3 days later for repair of a perforation in the small intestine causing severe abdominal pain. She did well after these open procedures; however, did undergo an exploratory laparotomy in the spring with Dr. Whitley when she presented back with severe abdominal pain and a CAT scan concerning for acute small bowel obstruction. She has had a gastric tube in a gastric remnant since her 2nd surgery, which has been clamped. She has had 2 admissions since her 3rd operation for abdominal pain with nausea and vomiting, which has responded to nonoperative management and she was discharged home. Yesterday, she states that she had a bowel movement develop and her abdomen then subsequently became distended. She has been passing flatus. She developed retching and abdominal pain that radiated around into her back area. She states she does have chronic abdominal pain, but this is worse than it usually is. When seen in the emergency room, she was afebrile with stable vital signs. Laboratory workup was unremarkable including a normal white blood cell count as well as electrolytes. Lactic acid was 1.2. C-reactive protein was less than 1. She underwent another CT scan of the abdomen and pelvis, I did review these images. This shows possibility of a transient small length intussusception at the jejunojejunostomy without evidence of a proximal obstruction. There may be some mildly dilated more proximal small bowel with a transition zone to less collapsed bowel distally, but there is contrast that appears to pass, but these findings could be consistent with a partial small bowel obstruction. Also noted was a large amount of air throughout the colon and no evidence of free intraluminal air, internal hernia, or free fluid. She has been admitted to the surgical service for further care. PAST MEDICAL HISTORY: 1. Morbid obesity. 2. Bipolar disorder. PAST SURGICAL HISTORY: 1. Laparoscopic gastric bypass. 2. Remote cholecystectomy. 3. Exploratory laparotomies as per above for internal hernia as well as adhesions with small bowel obstruction. MEDICATIONS: Medicines include: 1. Lamictal 150 mg b.i.d. 2. Catapres 0.1 mg p.o. b.i.d. 3. BuSpar 10 mg p.r.n. 4. Seroquel 150 mg q.h.s. 5. Multivitamins. 6. Calcium carbonate. 7. Adderall 10 mg b.i.d. 8. Abilify 2 mg daily. ALLERGIES: She is allergic to CEPHALEXIN and PENICILLINS. SOCIAL HISTORY: She does not smoke or drink. She lives with her mother, is not presently employed. PHYSICAL EXAMINATION GENERAL: She is a well-developed, well-nourished female, appears to be somewhat uncomfortable sitting up in bed. She is awake, alert, and conversive. VITAL SIGNS: Temperature 97.7, pulse 65, blood pressure 112/61. HEENT: Oral mucosa is slightly dry. LUNGS: Clear to auscultation with normal respiratory effort. HEART: Regular rate and rhythm without murmurs, rubs, or gallops. ABDOMEN: Soft and slightly distended. She has a gastrostomy tube in place, draining some thin bilious fluid. She had diminished bowel sounds throughout. Her incision is clean, dry, and intact without hernia. She has some mild generalized tenderness without rebound, guarding, or peritoneal irritation. EXTREMITIES: Showed no cyanosis or edema. IMPRESSION: Nausea and vomiting with abdominal pain, status post bariatric surgery as per above with subsequent exploratory laparotomy for lysis of adhesions for small bowel obstruction. She presently has a gastric tube that has been in place permanently. CT scan findings as above, which suggest a possible partial small bowel obstruction without evidence of internal herniation and possible transient short segment intussusception at the jejunojejunostomy. PLAN/RECOMMENDATIONS: Plan for now is to admit and keep the patient n.p.o. She will be started on IV fluids. The gastrostomy tube in the gastric remnant will be placed to low intermittent suction. Laboratory values will be repeated in the morning. For now, she will be observed. I will discuss her care with Dr. Whitley and certainly our goal would be to avoid any surgical interventions at this point, but we will follow her clinically closely. All of the above were discussed with the patient and her mother who was present in the bedside this morning. [id number]/[facility] #: [id number] FARHAN
[2018-07-30] MEDS: Ondansetron INJ* 2 MG/ML VIAL IV PRN ×3 (01:42→17:46)
[2018-07-30] MEDS: HYDROmorphone INJ1* 1 MG/ML SYRINGE IV SLOW PU PRN ×9 (01:44→21:23)
[2018-07-30] MEDS: NS 0.9% 1000 ML* 1,000 ML IV SCH (02:35)
[2018-07-30] MEDS: Metoclopramide IV* 5 MG/ML 2 ML VIAL IV PRN ×3 (05:25→21:23)
[2018-07-30 06:09] LABS: ABS Basophils 0.1 10^3/ul (0-0.2); ABS Eosinophils 0.3 10^3/ul (0-0.6); ABS Lymphocytes 2.7 10^3/ul (1.0-4.8); ABS Neutrophils 3.8 10^3/ul (1.5-7.7); ABS Nucleated RBC 0 10^3/ul; Eosinophil % 3.2 % (0-6); Hematocrit 35 % (35-47); Hemoglobin 11.9 g/dl (12.0-16.0); Lymphocyte % 34.4 % (25-47); Mean Corpuscular HGB Conc 34 g/dl (31-36); Mean Corpuscular Hemoglobin 31 pg (27-31); Mean Corpuscular Volume 91 fL (80-97); Mean Platelet Volume 8.5 um3 (7.4-10.4); Nucleated Red Blood Cells % 0.1; Platelet Count 170 10^3/ul (150-450); Red Blood Count 3.82 10^6/ul (4.00-5.40); Red Cell Distribution Width 13 % (10.5-15); White Blood Count 7.9 10^3/ul (3.5-10.8)
[2018-07-30 06:30] LABS: EGFR Non-African American 153.5 (>60)
--- NOTE | 2018-07-30 08:35 | PN ---
Progress Note - Progress Note Date of Service: 07/30/18 SOAP: Subjective: Pt seen and examined. she was able to sleep some last night. THirsty. Objective: Temp Pulse Resp BP Pulse Ox 98.9 F 65 16 111/71 100 07/30/18 07:33 07/30/18 07:33 07/30/18 07:33 07/30/18 07:33 07/30/18 07:33 Intake & Output 07/29/18 07/30/18 07/30/18 22:59 06:59 14:59 Intake Total 980 980 Output Total 1250 500 Balance -270 480 a and o x3 abdo: soft/ distended/ tender diffusely w/o rebound ext: wnl labs reviewed E coli in urine <100,000 CT scan: reviewed-- No free fluid or free air. short segment intuss at JJ; air filled colon Assessment: abdo pain similar to in past. Unclear etiology. I believe pt may require OR at some point in the future. Possibly SB resection and/or revision of JJ This was discussed with pt and her mother Plan: clears cap G tube pain control No abx for now cbc in am
[2018-07-30] MEDS: Amphetamine MIXED SALT TAB* 10 MG TAB PO SCH ×2 (10:41→13:12)
[2018-07-30] MEDS: ARIPiprazole TAB* 2 MG PO SCH (10:41)
[2018-07-30] MEDS: Polyethylene Glycol 3350* 17 GM PACKET PO SCH ×2 (10:42→21:17)
[2018-07-30] MEDS: cloNIDine TAB* 0.1 MG PO SCH ×2 (10:42→21:19)
[2018-07-30] MEDS: lamoTRIgine TAB(*) 100 MG PO SCH ×2 (10:42→21:18)
[2018-07-30] MEDS: D5W 1/2 NS KCl 20 Meq 1000 ML* 1,000 ML IV SCH (11:17)
[2018-07-30] MEDS: QUEtiapine TAB* 25 MG PO SCH (21:17)
[2018-07-30] MEDS: QUEtiapine TAB* 100 MG PO SCH (21:18)
[2018-07-31] MEDS: HYDROmorphone INJ1* 1 MG/ML SYRINGE IV SLOW PU PRN ×8 (00:24→20:29)
[2018-07-31] MEDS: D5W 1/2 NS KCl 20 Meq 1000 ML* 1,000 ML IV SCH ×2 (00:26→18:42)
[2018-07-31 06:46] LABS: ABS Basophils 0.1 10^3/ul (0-0.2); ABS Eosinophils 0.3 10^3/ul (0-0.6); ABS Lymphocytes 2.6 10^3/ul (1.0-4.8); ABS Monocytes 0.9 10^3/ul (0-0.8); ABS Nucleated RBC 0 10^3/ul; Eosinophil % 4.3 % (0-6); Hematocrit 35 % (35-47); Hemoglobin 11.9 g/dl (12.0-16.0); Lymphocyte % 37.3 % (25-47); Mean Corpuscular HGB Conc 35 g/dl (31-36); Mean Corpuscular Hemoglobin 31 pg (27-31); Mean Corpuscular Volume 91 fL (80-97); Mean Platelet Volume 8.1 um3 (7.4-10.4); Nucleated Red Blood Cells % 0; Platelet Count 184 10^3/ul (150-450); Red Blood Count 3.81 10^6/ul (4.00-5.40); Red Cell Distribution Width 13 % (10.5-15); White Blood Count 6.8 10^3/ul (3.5-10.8)
[2018-07-31] MEDS: cloNIDine TAB* 0.1 MG PO SCH ×2 (09:20→20:36)
[2018-07-31] MEDS: ARIPiprazole TAB* 2 MG PO SCH (09:20)
[2018-07-31] MEDS: Amphetamine MIXED SALT TAB* 10 MG TAB PO SCH ×2 (09:20→11:57)
[2018-07-31] MEDS: Polyethylene Glycol 3350* 17 GM PACKET PO SCH ×2 (09:21→20:37)
[2018-07-31] MEDS: lamoTRIgine TAB(*) 100 MG PO SCH ×2 (09:50→20:42)
--- NOTE | 2018-07-31 10:33 | PN ---
Progress Note - Progress Note Date of Service: 07/31/18 SOAP: Subjective: Pt seen and examined. Feels a littel better. no flatus. positive burping. Positive appetite Objective: Temp Pulse Resp BP Pulse Ox 98.1 F 67 18 99/57 100 07/31/18 07:15 07/31/18 07:15 07/31/18 09:39 07/31/18 07:15 07/31/18 07:15 Intake & Output 07/30/18 07/31/18 07/31/18 22:59 06:59 14:59 Intake Total 800 1350 240 Output Total 2200 1000 1999 Balance -1400 350 -1760 a and o x3 abdo: soft/ distended, tympanin, tender w/o rebound Assessment: obstruction- resolving Plan: axr advance diet resume home meds
--- NOTE | 2018-07-31 15:08 | RAD ---
HISTORY: r/o obstruction COMPARISONS: June 04, 2018 VIEWS: Frontal supine and upright views of the abdomen. FINDINGS: BOWEL: There are dilated loops of small bowel up to 6.4 cm with multiple differential air-fluid levels. There is large amount of stool within the colon. CALCULI: There are no abnormal calculi. BONES AND SOFT TISSUES: There are no osseous abnormalities. OTHER FINDINGS: The lung bases are clear. There is no subphrenic gas. IMPRESSION: DILATED LOOPS OF SMALL BOWEL WITH MULTIPLE DIFFERENTIAL AIR-FLUID LEVELS CONSISTENT WITH SMALL BOWEL OBSTRUCTION.
[2018-07-31] MEDS ORDERED: Meropenem 1 GM PREMIX(*) 1 GM/50 ML BAG IV SCH (20:00)
[2018-07-31] MEDS: QUEtiapine TAB* 25 MG PO SCH (20:34)
[2018-07-31] MEDS: QUEtiapine TAB* 100 MG PO SCH (20:35)
[2018-07-31] MEDS ORDERED: Nitrofurantoin Macrocrystals* 50 MG CAP PO SCH (21:00)
--- NOTE | 2018-07-31 21:14 | RAD ---
EXAM: US Retroperitoneal Limited, Renal CLINICAL HISTORY: 43 years old, female; Pain; Abdominal pain; Flank; Other: Bilateral flank pain; Patient HX: Small bowel obstruction, uti; Additional info: Dsyuria, flank pain TECHNIQUE: Real-time ultrasound of the retroperitoneum (limited) with image documentation. COMPARISON: [facility] US ABDOMEN LIMITED 02/07/2018 2:[address] examination performed on 07/28/2018. FINDINGS: Right kidney: Right kidney measures 10.7 x 4.7 x 5.3 cm. No stones. No hydronephrosis. Left kidney: Left kidney measures 9.7 x 5.0 x 5.0 cm. 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 No hydronephrosis. The IMPRESSION: 1. Normal renal ultrasound.
[2018-07-31] MEDS: Nitrofurantoin Macrocrystals* 100 MG CAP PO SCH (21:20)
--- NOTE | 2018-07-31 21:44 | CONS ---
CC: Bre Boyer NP; Dr. Ohara; Dr. Smith; Dr. Whitley; Dr. Tran * CONSULTATION REPORT: DATE OF CONSULT: 07/31/18 PRIMARY CARE PROVIDER: Bre Boyer NP REQUESTING PHYSICIAN IN CONSULT: Dr. Ohara. MY ATTENDING PHYSICIAN WHILE IN THE HOSPITAL: Dr. Sharri Kurtz (report dictated by Manuel Miranda NP). REASON FOR MEDICAL CONSULTATION: Evaluation of abnormal urine culture. HISTORY OF PRESENT ILLNESS: I refer you to Dr. Tran's H and P that was dictated on 07/29/18 for details. In short, Ms. Verma is a 43-year-old female patient with extensive surgical history, who essentially was presenting to the emergency department on 07/28/18 with complaints of abdominal pain and nausea. She went to the ER. She says that she started having lower abdominal discomfort. She says she developed retching and abdominal pain that radiated around into her back area. She noted that she was becoming more distended. She has not had a bowel movement since Monday. She came into the ER and was evaluated with a CT abdomen and pelvis and it did show the possibility of a small bowel obstruction. The patient was admitted under surgical services. While in the ER, UA was obtained and then the culture today did grow back ESBL E. coli, which looking back previously she has grown back in November. She is admitting to having now over the last 24 hours dysuria, hesitancy and frequency and states that she is having lower back pain, but she says she does not know if this is coming from her kidneys or if it is from her bowel obstruction as she has similar type pain with a bowel obstruction. She denied having any fevers or chills and there has been none reported here, but because of the ESBL E. coli in the urine and now with urinary symptoms, we were asked to evaluate in consult. PAST MEDICAL HISTORY: Significant for: 1. Bipolar disorder. 2. ADHD. 3. Obesity. 4. Anxiety. PAST SURGICAL HISTORY: She has had laparoscopic cholecystectomy. She had had a gastric bypass and subsequently since November of this year, she has had 3 exploratory laparotomies, 1 for an internal hernia, the next for repair of a perforation and the third for the lysis of adhesions. HOME MEDICATIONS: According to the list that she provided on admission include: 1. Adderall 10 mg p.o. b.i.d. 2. Abilify 2 mg p.o. daily. 3. MiraLAX 17 g p.o. b.i.d. 4. B12 500 mcg p.o. daily. 5. Calcium carbonate 500 mg p.o. b.i.d. as needed. 6. Biotin 6000 mcg p.o. daily. 7. Vitamin C 500 mg p.o. daily. 8. Lamictal 150 mg p.o. b.i.d. 9. Catapres 0.1 mg p.o. b.i.d. 10. BuSpar 10 mg p.o. t.i.d. as needed. 11. Seroquel 150 mg p.o. at bedtime. ALLERGIES TO MEDICATIONS: Include KEFLEX and PENICILLIN. FAMILY HISTORY: Mother had a history of CHF, COPD, and bipolar. Her father had a history of ID, CAD, and diabetes. SOCIAL HISTORY: She does not smoke. She does not drink. She is , with 6 children. Surrogate decision maker is her . REVIEW OF SYSTEMS: There is no documented fever. She is denying any significant weight change. There is no double vision. She denies having any rhinorrhea. There is no sore throat. No thyroid enlargement. She is denying any chest pain. There is no orthopnea. There is no nocturnal dyspnea. She does admit to having the lower abdominal discomfort that starts in her back and radiates into her flank, which is the similar pain that she had on admission. She is now also admitting to dysuria, frequency. She is denying having any nausea, she says it is controlled and denies any vomiting. There was no loss of consciousness. No pruritus and no skin ulcerations. Review of 14 systems was completed, all others negative. PHYSICAL EXAM: Her physical examination today is revealing vital signs: Blood pressure 124/71, pulse 79, respirations 18, O2 sat 99%, temperature 98.3. General: At this time, Ms. Verma is a 43-year-old female patient. She is sitting in the hospital bed. She does not appear to be in any acute distress. HEENT: Head: Atraumatic and normocephalic. Eyes: EOMs are intact. Sclerae anicteric and not pale. Throat: Oral mucosa appears to be dry. No oropharyngeal erythema. Neck was supple. Heart: Sounds S1, S2. She had a regular rate and rhythm. No murmurs, rubs, or gallops. Abdomen was mildly distended. It was soft. Bowel sounds hypoactive. There was tenderness in the suprapubic and lower quadrant. She did have CVA tenderness on exam as well. Extremities: Pulses were 2+ throughout. She had no peripheral edema. No pitting edema. She is moving all 4 extremities with 5/5 strength. Neurologically, the patient is awake. She is alert. She is oriented x3. Tongue is midline. [employer] Pl Sql Developer were equal. She had no gross focal deficits. Her skin is intact. DIAGNOSTIC STUDIES/LAB DATA: Labs from this morning: WBC 6.8, RBC of 3.81, hemoglobin 11.9, hematocrit of 35, platelet count of 184. INR on admission 0.94 , PTT was 30.8. Her sodium was 138 today, potassium was 3.3, chloride of 109, bicarb of 24, BUN 6, creatinine of 0.45, glucose of 83, calcium of 7.8. Urine on admission showed 1+ leukocyte esterase, 1+ wbc's, 1+ bacteria. Microbiology did grow out ESBL E. coli. She did have an abdominopelvic CT on admission, impression: Enteroenteric anastomosis, intussusception likely transient, additional findings suggesting a partial small bowel obstruction with transition point in the mid abdomen. No perforation or ischemia. Nonobstructing left renal calculus. She did have an abdominal x-ray obtained. Dilated loops of small bowel with multiple differential air fluid levels consistent with small bowel obstruction. That was done today. Old medical records were reviewed. ASSESSMENT AND PLAN: Ms. Verma is a 43-year-old female patient with a complex surgical history coming into the surgical services with nausea, vomiting , decreased bowel movements, found to have a small bowel obstruction. We were asked to evaluate today. It was noted that she had an abnormal UA. Recommendations at this point are: 1. Small bowel obstruction. I will defer the management to Dr. Whitley and the surgical services. 2. Hypokalemia. This has been replaced. We will repeat her BMP in the morning. 3. Urinary tract infection, concern for possible pyelonephritis. Again, fortunately, she is not having a white count here, she does not have a fever. My plan would be to put her on meropenem given the sensitivity results, get in touch with Dr. Smith. She is growing ESBL. I want to repeat the urine today to see if the colony counts have increased, which I am assuming they are given the fact she is now symptomatic with her urine, particularly the dysuria, hesitancy, and frequency. She did have CVA tenderness on exam, so I am going to get a renal ultrasound. She did have a renal calculi on the left previously and I want to make sure that this has not become obstructive and we will continue to follow her. 4. History of bipolar disorder. Continue meds as prescribed. 5. Attention deficit hyperactivity disorder. Continue meds as prescribed and supportive care. 6. Anxiety. Continue supportive care. 7. DVT prophylaxis: I will defer to the primary team. 8. Code status: Full code. 9. Fluids, electrolytes, and nutrition: Defer to the primary team with a goal diet being a regular diet. TIME SPENT: Time spent on the consult was 60 minutes, greater than half the time was spent [id number] with the patient obtaining my history and physical, other half time was spent going over the plan of care with the patient and implementing plan of care. I discussed the plan of care with my attending, Dr. Kurtz; she is in agreement. MANUEL MIRANDA, ALEXYS [id number]/CPS #: [id number] FARHAN
[2018-08-01] MEDS: HYDROmorphone INJ1* 1 MG/ML SYRINGE IV SLOW PU PRN ×11 (00:08→22:31)
[2018-08-01 00:33] LABS: Urine Appearance Cloudy; Urine Blood 2+ (Negative); Urine Color Yellow; Urine Ketones Negative (Negative); Urine Protein Negative (Negative); Urine Red Blood Cell 3+(>10/hpf) (Absent); Urine Specific Gravity 1.006 (1.010-1.030); Urine Urobilinogen Negative (Negative); Urine White Blood Cell 3+(>20/hpf) (Absent)
[2018-08-01] MEDS: Nitrofurantoin Macrocrystals* 100 MG CAP PO SCH ×2 (02:35→08:36)
[2018-08-01] MEDS: Ondansetron INJ* 2 MG/ML VIAL IV PRN ×2 (05:56→13:34)
[2018-08-01 06:20] LABS: ABS Basophils 0 10^3/ul (0-0.2); ABS Eosinophils 0.2 10^3/ul (0-0.6); ABS Lymphocytes 2.1 10^3/ul (1.0-4.8); ABS Neutrophils 5.9 10^3/ul (1.5-7.7); ABS Nucleated RBC 0 10^3/ul; Eosinophil % 2.5 % (0-6); Hematocrit 33 % (35-47); Hemoglobin 11.2 g/dl (12.0-16.0); Lymphocyte % 22.6 % (25-47); Mean Corpuscular HGB Conc 34 g/dl (31-36); Mean Corpuscular Hemoglobin 31 pg (27-31); Mean Corpuscular Volume 91 fL (80-97); Mean Platelet Volume 8.2 um3 (7.4-10.4); Nucleated Red Blood Cells % 0.1; Platelet Count 161 10^3/ul (150-450); Red Blood Count 3.57 10^6/ul (4.00-5.40); Red Cell Distribution Width 13 % (10.5-15); White Blood Count 9.2 10^3/ul (3.5-10.8)
[2018-08-01 06:31] LABS: EGFR Non-African American 149.7 (>60)
[2018-08-01] MEDS: Polyethylene Glycol 3350* 17 GM PACKET PO SCH ×2 (08:31→21:20)
[2018-08-01] MEDS: ARIPiprazole TAB* 2 MG PO SCH (08:36)
[2018-08-01] MEDS: Amphetamine MIXED SALT TAB* 10 MG TAB PO SCH ×2 (08:36→12:04)
[2018-08-01] MEDS: lamoTRIgine TAB(*) 100 MG PO SCH ×2 (08:36→21:18)
[2018-08-01] MEDS: cloNIDine TAB* 0.1 MG PO SCH ×2 (08:36→21:18)
[2018-08-01] MEDS: D5W 1/2 NS KCl 20 Meq 1000 ML* 1,000 ML IV SCH ×2 (09:16→22:35)
--- NOTE | 2018-08-01 09:29 | PN ---
Progress Note - Progress Note Date of Service: 08/01/18 SOAP: Subjective: Pt seen and examined. Overnight events noted. E coli in Urine- I held off on abx treatment due to <100,[address] Now on macrodantin. pain controlled with narcotics some flatus, no BM Objective: Temp Pulse Resp BP Pulse Ox 98.3 F 76 18 101/58 99 08/01/18 04:01 08/01/18 04:01 08/01/18 08:31 08/01/18 04:01 08/01/18 04:01 Intake & Output 07/31/18 08/01/18 08/01/18 22:59 06:59 14:59 Intake Total 440 100 Output Total 1000 1800 0 Balance -560 -1700 0 sclera anicteric lungs clear abdo: distended, tender w/o rebound normoactive bs cva tenderness b/l back pain no calf tenderness Laboratory Last Values WBC 9.2 10^3/ul (3.5-10.8) 08/01/18 05:41 RBC 3.57 10^6/ul (4.00-5.40) L 08/01/18 05:41 Hgb 11.2 g/dl (12.0-16.0) L 08/01/18 05:41 Hct 33 % (35-47) L 08/01/18 05:41 MCV 91 fL (80-97) 08/01/18 05:41 MCH 31 pg (27-31) 08/01/18 05:41 MCHC 34 g/dl (31-36) 08/01/18 05:41 RDW 13 % (10.5-15) 08/01/18 05:41 Plt Count 161 10^3/ul (150-450) 08/01/18 05:41 MPV 8.2 um3 (7.4-10.4) 08/01/18 05:41 Neut % (Auto) 64.1 % (38-83) 08/01/18 05:41 Lymph % (Auto) 22.6 % (25-47) L 08/01/18 05:41 [place] % (Auto) 10.3 % (0-7) H 08/01/18 05:41 Eos % (Auto) 2.5 % (0-6) 08/01/18 05:41 Baso % (Auto) 0.5 % (0-2) 08/01/18 05:41 Absolute Neuts (auto) 5.9 10^3/ul (1.5-7.7) 08/01/18 05:41 Absolute Lymphs (auto) 2.1 10^3/ul (1.0-4.8) 08/01/18 05:41 Absolute Monos (auto) 1.0 10^3/ul (0-0.8) H 08/01/18 05:41 Absolute Eos (auto) 0.2 10^3/ul (0-0.6) 08/01/18 05:41 Absolute Basos (auto) 0 10^3/ul (0-0.2) 08/01/18 05:41 Absolute Nucleated RBC 0 10^3/ul 08/01/18 05:41 Nucleated RBC % 0.1 08/01/18 05:41 INR (Anticoag Therapy) 0.94 (0.77-1.02) 07/28/18 19:56 APTT 30.8 seconds (26.0-36.3) 07/28/18 19:56 Sodium 137 mmol/L (135-145) 08/01/18 05:41 Potassium 3.8 mmol/L (3.5-5.0) 08/01/18 05:41 Chloride 105 mmol/L (101-111) 08/01/18 05:41 Carbon Dioxide 28 mmol/L (22-32) 08/01/18 05:41 Anion Gap 4 mmol/L (2-11) 08/01/18 05:41 BUN 7 mg/dL (6-24) 08/01/18 05:41 Creatinine 0.46 mg/dL (0.51-0.95) L 08/01/18 05:41 Est GFR ( Amer) 181.1 (>60) 08/01/18 05:41 Est GFR (Non-Af Amer) 149.7 (>60) 08/01/18 05:41 BUN/Creatinine Ratio 15.2 (8-20) 08/01/18 05:41 Glucose 85 mg/dL (70-100) 08/01/18 05:41 POC Glucose (mg/dL) 82 mg/dL (70-100) 09/09/18 14:31 Lactic Acid 1.2 mmol/L (0.5-2.0) 07/28/18 19:56 Calcium 7.9 mg/dL (8.6-10.3) L 08/01/18 05:41 Magnesium 1.9 mg/dL (1.9-2.7) 07/28/18 19:56 Total Bilirubin 0.20 mg/dL (0.2-1.0) 07/28/18 19:56 AST 11 U/L (13-39) L 07/28/18 19:56 ALT 12 U/L (7-52) 07/28/18 19:56 Alkaline Phosphatase 93 U/L (34-104) 07/28/18 19:56 C-Reactive Protein < 1.00 mg/L (<8.01) 07/28/18 19:56 Total Protein 5.6 g/dL (6.4-8.9) L 07/28/18 19:56 Albumin 3.4 g/dL (3.2-5.2) 07/28/18 19:56 Globulin 2.2 g/dL (2-4) 07/28/18 19:56 Albumin/Globulin Ratio 1.5 (1-3) 07/28/18 19:56 Amylase 43 U/L (29-103) 07/28/18 19:56 Lipase 40 U/L (11.0-82.0) 07/28/18 19:56 Beta HCG, Quant < 0.60 mIU/mL 07/28/18 19:56 Urine Color Yellow 08/01/18 00:00 Urine Appearance Cloudy 08/01/18 00:00 Urine pH 7.0 (5-9) 08/01/18 00:00 Ur Specific [place] 1.006 (1.010-1.030) L 08/01/18 00:00 Urine Protein Negative (Negative) 08/01/18 00:00 Urine Ketones Negative (Negative) 08/01/18 00:00 Urine Blood 2+ (Negative) A 08/01/18 00:00 Urine Nitrate Negative (Negative) 08/01/18 00:00 Urine Bilirubin Negative (Negative) 08/01/18 00:00 Urine Urobilinogen Negative (Negative) 08/01/18 00:00 Ur Leukocyte Esterase 3+ (Negative) A 08/01/18 00:00 Urine WBC (Auto) 3+(>20/hpf) (Absent) A 08/01/18 00:00 Urine RBC (Auto) 3+(>10/hpf) (Absent) A 08/01/18 00:00 Ur Squamous Epith Cells Present (Absent) A 08/01/18 00:00 Urine Bacteria 2+ (Absent) A 08/01/18 00:00 Urine Glucose Negative (Negative) 08/01/18 00:00 Blood Type O Positive 07/28/18 19:56 Antibody Screen Negative 07/28/18 19:56 axr reviewed Assessment: Abdominal pain, no improvement treated for UTI Plan: pain control today UGI via gastrostomy tomorrow continue treatment of UTI
--- NOTE | 2018-08-01 14:53 | PN ---
Subjective Date of Service: 08/01/18 Interval History: Patient has persistent back pain which radiates to her front with persistent bloating and lack of BM. Patient states that in November her pain was similar to this and that at that time she also had concern for UTI/Pyelonephritis and a SBO. Patient states her dysuria has improved since last night. Patient states she is tolerating small amounts of food without nausea. Patient denies CP, SOB, N/V, Dizziness, palpitations, or other pain. Family History: Unchanged from Admission Social History: Unchanged from Admission Past Medical History: Unchanged from Admission Objective Active Medications: Amphetamine/Dextroamphetamine (Adderall Tab*) 10 mg PO BID@0900,1200 [facility] Last Admin: 08/01/18 12:04 Dose: 10 mg Aripiprazole (Abilify Tab*) 2 mg PO DAILY [facility] Last Admin: 08/01/18 08:36 Dose: 2 mg Clonidine HCl (Catapres Tab*) 0.1 mg PO BID [facility] Last Admin: 08/01/18 08:36 Dose: 0.1 mg Hydromorphone HCl (Dilaudid Inj1s*) 1 mg IV SLOW PU Q1H PRN PRN Reason: PAIN Last Admin: 08/01/18 13:31 Dose: 1 mg Potassium Chloride/Dextrose (D5w 1/2 Ns Kcl 20 Meq 1000 Ml*) 1,000 mls @ 75 mls /hr IV PER RATE [facility] Last Admin: 08/01/18 09:16 Dose: 75 mls/hr Meropenem (Merrem 1 Gm Premix(*)) 1 gm in 50 mls @ 100 mls/hr IV Q8H [facility] Lamotrigine (Lamictal Tab(*)) 150 mg PO BID [facility] Last Admin: 08/01/18 08:36 Dose: 150 mg Metoclopramide HCl (Reglan Iv*) 10 mg IV Q6H PRN PRN Reason: NAUSEA Last Admin: 07/30/18 21:23 Dose: 10 mg Ondansetron HCl (Zofran Inj*) 4 mg IV Q6H PRN PRN Reason: NAUSEA Last Admin: 08/01/18 13:34 Dose: 4 mg Pharmacy Profile Note (Scopolamine Patch Remove*) 1 note PATCH OFF Q72H [facility] Last Admin: 08/01/18 14:22 Dose: 1 patch Polyethylene Glycol/Electrolytes (Miralax*) 17 gm PO BID [facility] Last Admin: 08/01/18 08:31 Dose: 17 gm Quetiapine Fumarate (Seroquel Tab*) 100 mg PO BEDTIME [facility] Last Admin: 07/31/18 20:35 Dose: 100 mg Quetiapine Fumarate (Seroquel Tab*) 50 mg PO BEDTIME [facility] Last Admin: 07/31/18 20:34 Dose: 50 mg Vital Signs - 8 hr 08/01/18 08/01/18 08/01/18 07:26 08:00 08:17 Temperature 98.1 F Pulse Rate 81 Respiratory 18 18 17 Rate Blood Pressure 140/67 (mmHg) O2 Sat by Pulse 100 Oximetry 08/01/18 08/01/18 08/01/18 08:31 09:30 11:05 Temperature Pulse Rate Respiratory 18 18 20 Rate Blood Pressure (mmHg) O2 Sat by Pulse Oximetry 08/01/18 08/01/18 08/01/18 11:53 12:12 13:31 Temperature 98.0 F Pulse Rate 80 Respiratory 16 18 18 Rate Blood Pressure 103/53 (mmHg) O2 Sat by Pulse 98 Oximetry 08/01/18 14:39 Temperature Pulse Rate Respiratory 18 Rate Blood Pressure (mmHg) O2 Sat by Pulse Oximetry Oxygen Devices in Use Now: None Appearance: Patient is a 43yo female who appears stated age and is sitting in the bed in NAD. Eyes: No Scleral Icterus, PERRLA Ears/Nose/Mouth/Throat: NL Teeth, Lips, Gums, Clear Oropharnyx, Mucous Membranes Moist Neck: NL Appearance and Movements; NL JVP, Trachea Midline Respiratory: Symmetrical Chest Expansion and Respiratory Effort, Clear to Auscultation Cardiovascular: NL Sounds; No Murmurs; No JVD, RRR, No Edema Abdominal: No Hepatosplenomegaly, - - Distended, Tender, Lymphatic: No Cervical Adenopathy Extremities: No Edema, No Clubbing, Cyanosis Skin: No Rash or Ulcers, No Nodules or Sclerosis Neurological: Alert and Oriented x 3, NL Sensation, NL Muscle Strength and Tone Result Diagrams: 08/01/18 05:41 08/01/18 05:41 Microbiology and Other Data: Microbiology 07/28/18 21:29 Urine Culture - Final Urine Esbl Escherichia Coli Assess/Plan/Problems-Billing Assessment: Patient is a 43yo female with a PMH for Gastric Bypass, Recurrent SBO, RISA, who presents with recurrent SBO and is improving conservatively at this point whose urine culture grew ESBL E. coli with clinical signs of UTI and is on Meropenum and improving. - Patient Problems (1) Urinary tract infection Current Visit: No Status: Acute Comment: - Dysuria, Chills, Sweats, and back pain. - Was started on Nitrofurantoin - Discussed with ID, consult pending. Will broaden to Meropenum and monitor due to concern for pyelonephritis. (2) Abdominal pain Current Visit: No Status: Acute Code(s): R10.9 - UNSPECIFIED ABDOMINAL PAIN SNOMED Code(s): 41753107 Comment: - Probably due to recurrent SBO vs. intussesception. - Management per primary team (3) Anemia Current Visit: No Status: Acute Code(s): D64.9 - ANEMIA, UNSPECIFIED SNOMED Code(s): 224325433 Comment: - Previously RISA, improved. (4) Anxiety and depression Current Visit: No Status: Acute Code(s): F41.8 - OTHER SPECIFIED ANXIETY DISORDERS SNOMED Code(s): 05849652 Comment: - Continue Home Buspar and antipsychotics (5) ADHD Current Visit: No Status: Acute Comment: - Adderall (6) H/O gastric bypass Current Visit: No Status: Acute Code(s): Z98.84 - BARIATRIC SURGERY STATUS SNOMED Code(s): 952603341 Comment: - Management per primary team. Malabsorptive issue seem to be improving. (7) Full code status Current Visit: No Status: Acute Code(s): Z78.9 - OTHER SPECIFIED HEALTH STATUS SNOMED Code(s): 721168110 Status and Disposition: Inpatient. Disposition per primary team.
[2018-08-01] MEDS: Meropenem 1 GM PREMIX(*) 1 GM/50 ML BAG IV SCH ×2 (15:16→22:34)
[2018-08-01] MEDS ORDERED: Scopolamine PATCH Remove* 1 NOTE MISC PATCH OFF SCH (16:00)
[2018-08-01] MEDS: QUEtiapine TAB* 25 MG PO SCH (21:17)
[2018-08-01] MEDS: QUEtiapine TAB* 100 MG PO SCH (21:18)
[2018-08-02] MEDS: Metoclopramide IV* 5 MG/ML 2 ML VIAL IV PRN (04:25)
[2018-08-02] MEDS: HYDROmorphone INJ1* 1 MG/ML SYRINGE IV SLOW PU PRN ×8 (04:25→23:07)
[2018-08-02 05:22] LABS: ABS Basophils 0.1 10^3/ul (0-0.2); ABS Eosinophils 0.3 10^3/ul (0-0.6); ABS Lymphocytes 1.9 10^3/ul (1.0-4.8); ABS Monocytes 0.8 10^3/ul (0-0.8); ABS Neutrophils 2.4 10^3/ul (1.5-7.7); ABS Nucleated RBC 0 10^3/ul; Eosinophil % 4.8 % (0-6); Hematocrit 32 % (35-47); Hemoglobin 10.9 g/dl (12.0-16.0); Lymphocyte % 35.8 % (25-47); Mean Corpuscular HGB Conc 34 g/dl (31-36); Mean Corpuscular Hemoglobin 31 pg (27-31); Mean Corpuscular Volume 91 fL (80-97); Mean Platelet Volume 7.7 um3 (7.4-10.4); Nucleated Red Blood Cells % 0.1; Platelet Count 157 10^3/ul (150-450); Red Blood Count 3.51 10^6/ul (4.00-5.40); Red Cell Distribution Width 13 % (10.5-15); White Blood Count 5.4 10^3/ul (3.5-10.8)
[2018-08-02] MEDS: Meropenem 1 GM PREMIX(*) 1 GM/50 ML BAG IV SCH ×3 (06:48→23:02)
[2018-08-02] MEDS: cloNIDine TAB* 0.1 MG PO SCH ×2 (09:46→20:22)
[2018-08-02] MEDS: lamoTRIgine TAB(*) 100 MG PO SCH ×2 (09:46→20:22)
[2018-08-02] MEDS: ARIPiprazole TAB* 2 MG PO SCH (09:46)
[2018-08-02] MEDS: Amphetamine MIXED SALT TAB* 10 MG TAB PO SCH ×2 (09:50→12:32)
[2018-08-02] MEDS ORDERED: Sodium Phosphate ADULT ENEMA* 118 ml bottle PR PRN (10:55)
[2018-08-02] MEDS: Polyethylene Glycol 3350* 17 GM PACKET PO SCH ×2 (11:30→20:23)
--- NOTE | 2018-08-02 13:14 | RAD ---
CPT II Codes: G9500 Indication: Clinical concern for bowel obstruction and a patient with a percutaneous gastrostomy tube History: History of gastric bypass surgery October 28, 2015 with subsequent laparotomy, hernia repair and small bowel obstructions Anaesthesia: None Fluoroscopy time: 9 seconds Procedure note and findings: Utilizing a Dipak syringe dilated Gastrografin was injected under live digital subtraction fluoroscopic imaging into the feeding tube. The feeding tube tip is seen to be just below the lower margin of the remaining gastric fundus. There is no leakage of injected contrast outside the gastric lumen. Subsequently delayed radiographic images were acquired 35 minutes and 1 hour and 35 minutes status post injection and the injected contrast has not progressed in the small bowel and can be seen filling the gastric fundus. IMPRESSION: 1. Injection of contrast into the percutaneous gastrostomy tube shows the feeding tube to be appropriately positioned in the stomach without evidence of leak. 2. The injected contrast does not leave the gastric lumen. Delayed images were acquired 35 minutes and 1 hour after injection and the injected contrast remained in the gastric fundus.
--- NOTE | 2018-08-02 14:51 | PN ---
Subjective Date of Service: 08/02/18 Interval History: Patient is having persistent back pain which has not improved. Patient has persistent abdominal pain. Patient denies dysuria, F/C, N/V, dizziness, CP, SOB , palpitations, or other pain. Patient has been undergoing tests for gastric emptying today. Family History: Unchanged from Admission Social History: Unchanged from Admission Past Medical History: Unchanged from Admission Objective Active Medications: Amphetamine/Dextroamphetamine (Adderall Tab*) 10 mg PO BID@0900,1200 [facility] Last Admin: 08/02/18 12:32 Dose: 10 mg Aripiprazole (Abilify Tab*) 2 mg PO DAILY [facility] Last Admin: 08/02/18 09:46 Dose: 2 mg Clonidine HCl (Catapres Tab*) 0.1 mg PO BID [facility] Last Admin: 08/02/18 09:46 Dose: 0.1 mg Hydromorphone HCl (Dilaudid Inj1s*) 1 mg IV SLOW PU Q1H PRN PRN Reason: PAIN Last Admin: 08/02/18 12:32 Dose: 1 mg Potassium Chloride/Dextrose (D5w 1/2 Ns Kcl 20 Meq 1000 Ml*) 1,000 mls @ 75 mls /hr IV PER RATE [facility] Last Admin: 08/01/18 22:35 Dose: 75 mls/hr Meropenem (Merrem 1 Gm Premix(*)) 1 gm in 50 mls @ 100 mls/hr IV Q8H [facility] Last Admin: 08/02/18 06:48 Dose: 100 mls/hr Lamotrigine (Lamictal Tab(*)) 150 mg PO BID [facility] Last Admin: 08/02/18 09:46 Dose: 150 mg Metoclopramide HCl (Reglan Iv*) 10 mg IV Q6H PRN PRN Reason: NAUSEA Last Admin: 08/02/18 04:25 Dose: 10 mg Ondansetron HCl (Zofran Inj*) 4 mg IV Q6H PRN PRN Reason: NAUSEA Last Admin: 08/01/18 13:34 Dose: 4 mg Pharmacy Profile Note (Scopolamine Patch Remove*) 1 note PATCH OFF Q72H [facility] Last Admin: 08/01/18 14:22 Dose: 1 patch Polyethylene Glycol/Electrolytes (Miralax*) 17 gm PO BID [facility] Last Admin: 08/02/18 11:30 Dose: 17 gm Quetiapine Fumarate (Seroquel Tab*) 100 mg PO BEDTIME [facility] Last Admin: 08/01/18 21:18 Dose: 100 mg Quetiapine Fumarate (Seroquel Tab*) 50 mg PO BEDTIME [facility] Last Admin: 08/01/18 21:17 Dose: 50 mg Sodium Biphosphate/Sodium Phosphate (Fleet Enema*) 1 bottle HI DAILY PRN PRN Reason: CONSTIPATION Last Admin: 08/02/18 14:27 Dose: 1 bottle Vital Signs - 8 hr 08/02/18 08/02/18 08/02/18 06:48 07:10 07:55 Temperature 98.2 F Pulse Rate 75 Respiratory 20 20 16 Rate Blood Pressure 101/57 (mmHg) O2 Sat by Pulse 99 Oximetry 08/02/18 08/02/18 08/02/18 09:42 11:32 11:55 Temperature 98.2 F Pulse Rate 77 Respiratory 20 20 17 Rate Blood Pressure 104/58 (mmHg) O2 Sat by Pulse 100 Oximetry 08/02/18 08/02/18 12:32 13:57 Temperature Pulse Rate Respiratory 20 18 Rate Blood Pressure (mmHg) O2 Sat by Pulse Oximetry Oxygen Devices in Use Now: None Appearance: Patient is a 43yo female who appears stated age and is sitting in the bed in [facility]. Eyes: No Scleral Icterus, PERRLA Ears/Nose/Mouth/Throat: NL Teeth, Lips, Gums, Clear Oropharnyx, Mucous Membranes Moist Neck: NL Appearance and Movements; NL JVP, Trachea Midline Respiratory: Symmetrical Chest Expansion and Respiratory Effort, Clear to Auscultation Cardiovascular: NL Sounds; No Murmurs; No JVD, RRR, No Edema Abdominal: - - Normoactive bowel sounds consisting of tinkling and clicks. Tender to palpation and distended. G tube in place. Lymphatic: No Cervical Adenopathy Extremities: No Edema, No Clubbing, Cyanosis Skin: No Nodules or Sclerosis Neurological: Alert and Oriented x 3, NL Sensation, NL Gait, NL Muscle Strength and Tone, - - CN II-XII intact. Result Diagrams: 08/02/18 05:13 08/01/18 05:41 Microbiology and Other Data: Microbiology 07/28/18 21:29 Urine Culture - Final Urine Esbl Escherichia Coli Assess/Plan/Problems-Billing Assessment: Patient is a 43yo female with a PMH for Gastric Bypass, Recurrent SBO, RISA, who presents with recurrent SBO and is improving conservatively at this point whose urine culture grew ESBL E. coli with clinical signs of UTI and is on Meropenum and improving. - Patient Problems (1) Urinary tract infection Current Visit: No Status: Acute Comment: - Dysuria, Chills, Sweats resolved. - Persistent unchanging back pain. - Was started on Nitrofurantoin - Discussed with ID, consult pending. Continue Meropenum and monitor due to concern for pyelonephritis. - Hopeful transition to nitrofurantoin to finish course. (2) Abdominal pain Current Visit: No Status: Acute Code(s): R10.9 - UNSPECIFIED ABDOMINAL PAIN SNOMED Code(s): 61888675 Comment: - Probably due to recurrent SBO vs. intussesception. - Management per primary team (3) Anemia Current Visit: No Status: Acute Code(s): D64.9 - ANEMIA, UNSPECIFIED SNOMED Code(s): 190033655 Comment: - Previously RISA, improved. (4) Anxiety and depression Current Visit: No Status: Acute Code(s): F41.8 - OTHER SPECIFIED ANXIETY DISORDERS SNOMED Code(s): 54466168 Comment: - Continue Home Buspar and antipsychotics (5) ADHD Current Visit: No Status: Acute Comment: - Adderall (6) H/O gastric bypass Current Visit: No Status: Acute Code(s): Z98.84 - BARIATRIC SURGERY STATUS SNOMED Code(s): 763494947 Comment: - Management per primary team. Malabsorptive issue seem to be improving. (7) Full code status Current Visit: No Status: Acute Code(s): Z78.9 - OTHER SPECIFIED HEALTH STATUS SNOMED Code(s): 016392235 (8) DVT prophylaxis Current Visit: No Status: Acute Code(s): QNZ5757 - SNOMED Code(s): 514037351 Comment: SCDs and ambulation. Status and Disposition: Inpatient. Disposition per primary team.
[2018-08-02] MEDS: D5W 1/2 NS KCl 20 Meq 1000 ML* 1,000 ML IV SCH (15:18)
--- NOTE | 2018-08-02 16:22 | PN ---
Progress Note - Progress Note Date of Service: 08/02/18 Note: Surgery Progress:(late entry; patient seen around 10:00 this a.m.) S: still having sig abd pain. Using Dilaudid frequently (14 doses of 1 mg each over past 24 hr). No flatus or BM. She has been tolerating regular bariatric diet and is asking when she can eat again. She is part way through a constast study via her gastrostomy tube (no contrast progression from the stomach remnant at 35 min). O: Current Medications Amphetamine/Dextroamphetamine (Adderall Tab*) 10 mg PO BID@0900,1200 [facility] Last Admin: 08/02/18 12:32 Dose: 10 mg Aripiprazole (Abilify Tab*) 2 mg PO DAILY [facility] Last Admin: 08/02/18 09:46 Dose: 2 mg Clonidine HCl (Catapres Tab*) 0.1 mg PO BID [facility] Last Admin: 08/02/18 09:46 Dose: 0.1 mg Hydromorphone HCl (Dilaudid Inj1s*) 1 mg IV SLOW PU Q1H PRN PRN Reason: PAIN Last Admin: 08/02/18 16:01 Dose: 1 mg Potassium Chloride/Dextrose (D5w 1/2 Ns Kcl 20 Meq 1000 Ml*) 1,000 mls @ 75 mls /hr IV PER RATE [facility] Last Admin: 08/02/18 15:18 Dose: 75 mls/hr Meropenem (Merrem 1 Gm Premix(*)) 1 gm in 50 mls @ 100 mls/hr IV Q8H [facility] Last Admin: 08/02/18 15:18 Dose: 100 mls/hr Lamotrigine (Lamictal Tab(*)) 150 mg PO BID [facility] Last Admin: 08/02/18 09:46 Dose: 150 mg Metoclopramide HCl (Reglan Iv*) 10 mg IV Q6H PRN PRN Reason: NAUSEA Last Admin: 08/02/18 04:25 Dose: 10 mg Ondansetron HCl (Zofran Inj*) 4 mg IV Q6H PRN PRN Reason: NAUSEA Last Admin: 08/01/18 13:34 Dose: 4 mg Pharmacy Profile Note (Scopolamine Patch Remove*) 1 note PATCH OFF Q72H [facility] Last Admin: 08/01/18 14:22 Dose: 1 patch Polyethylene Glycol/Electrolytes (Miralax*) 17 gm PO BID [facility] Last Admin: 08/02/18 11:30 Dose: 17 gm Quetiapine Fumarate (Seroquel Tab*) 100 mg PO BEDTIME [facility] Last Admin: 08/01/18 21:18 Dose: 100 mg Quetiapine Fumarate (Seroquel Tab*) 50 mg PO BEDTIME [facility] Last Admin: 08/01/18 21:17 Dose: 50 mg Sodium Biphosphate/Sodium Phosphate (Fleet Enema*) 1 bottle UT DAILY PRN PRN Reason: CONSTIPATION Last Admin: 08/02/18 14:27 Dose: 1 bottle Vital Signs - 8 hr 08/02/18 08/02/18 08/02/18 09:42 11:32 11:55 Temperature 98.2 F Pulse Rate 77 Respiratory 20 20 17 Rate Blood Pressure 104/58 (mmHg) O2 Sat by Pulse 100 Oximetry 08/02/18 08/02/18 08/02/18 12:32 13:57 15:30 Temperature 98.2 F Pulse Rate 90 Respiratory 20 18 16 Rate Blood Pressure 105/61 (mmHg) O2 Sat by Pulse 100 Oximetry 08/02/18 16:01 Temperature Pulse Rate Respiratory 20 Rate Blood Pressure (mmHg) O2 Sat by Pulse Oximetry Intake and Output Last 24 Hours 07/31/18 08/01/18 08/02/18 08/03/18 06:59 06:59 06:59 06:59 Intake Total 3859 1140 3361 0 Output Total 4720 5625 3800 1500 Balance -861 -4485 -439 -1500 Intake: IV Fluids 2203 761 9376 NS 817 abx - merepem 109 d5 1/2 20kcl 514 272 5135 Oral 2050 1000 740 0 Output: G Tube 70 25 Urine 4650 5600 3800 1500 Gen: appears fairly well and in NAD Heart: reg Lungs: clear Abd: softly distended, tympanitic; mild to moderate diffuse, nonlocalized tenderness. +BS. No peritoneal signs A: abd pain; UTI (currently on Nitrofurntoin and Merepenem) P: discussed w/ Dr. Whitley; will try enema; await results of G-tube study
[2018-08-02] MEDS: QUEtiapine TAB* 100 MG PO SCH (23:03)
[2018-08-02] MEDS: QUEtiapine TAB* 25 MG PO SCH (23:03)
[2018-08-03] MEDS: HYDROmorphone INJ1* 1 MG/ML SYRINGE IV SLOW PU PRN ×2 (04:18→06:14)
[2018-08-03] MEDS: Meropenem 1 GM PREMIX(*) 1 GM/50 ML BAG IV SCH (06:16)
[2018-08-03] MEDS: D5W 1/2 NS KCl 20 Meq 1000 ML* 1,000 ML IV SCH (06:21)
[2018-08-03 08:13] VITALS: BP 96/68
[2018-08-03] MEDS ORDERED: Nitrofurantoin Macrocrystals* 100 MG CAP PO SCH (09:00)
[2018-08-03] MEDS: Polyethylene Glycol 3350* 17 GM PACKET PO SCH (09:05)
[2018-08-03] MEDS: cloNIDine TAB* 0.1 MG PO SCH (09:07)
[2018-08-03] MEDS: lamoTRIgine TAB(*) 100 MG PO SCH (09:07)
[2018-08-03] MEDS: Amphetamine MIXED SALT TAB* 10 MG TAB PO SCH ×2 (09:08→12:22)
[2018-08-03] MEDS: ARIPiprazole TAB* 2 MG PO SCH (09:08)
--- NOTE | 2018-08-04 08:34 | DS ---
CC: Renee Boyer; [facility] DISCHARGE SUMMARY: DATE OF ADMISSION: DATE OF DISCHARGE: 08/03/18 HOSPITAL COURSE: Ms. Verma is a 43-year-old female readmitted again on 07/28/18 by my partner w ith a recurrence of abdominal pain and bloating. The patient had multiple admissions in the similar fashion with no discrete anatomic diagnosis at this time other than an ileus, both small bowel and co lonic ileus, that has led to significant bloating and pain. The patient was treated with n.p.o. status, pain medications, and gastrostomy tube to straight draina ge. Drainage was scant by hospital day 2. By the completion of hospital day 1, this was clamped off and the patient was able to ambulate. She was started on a liquid diet and advanced slowly. The patient was diagnosed with an urinary tract infection with ESBL, that is an extended spectrum bet a-lactamase producing E. coli with multiple resistances and the patient was started on Macrodantin. The patient was followed by the hospitalist service as well for this purpose. She slowly improved an d pain medication was less needed. The patient's CAT scan on arrival showed one concern of a possible intussusception at the jejunojejun ostomy, this was nonobstructing, but for this reason I obtained a study of an upper GI through her re mnant gastrostomy tube. This showed contrast that did not leave the gastric lumen after almost an ho ur, so we had no way to analyze the jejunojejunostomy. The patient's diet was advanced nonetheless a nd she showed some improvement. On hospital day 4, she was given an enema and this showed some improvement. She had a bowel movement and decision by hospital day 5 was to discharge home. PHYSICAL EXAMINATION: Performed on the day of discharge. She was afebrile. Vital signs were stable . Urine output was good. The patient is alert and oriented x3, in no apparent distress. Lungs: Cl ear. Abdomen: Soft, less distended, nontender. Hypoactive bowel sounds. Gastrostomy tube with Fol ey catheter, this was removed at bedside and the patient's [place] tube replaced without event. Some puckering of the mucosa around the gastrostomy site, but no evidence of erythema. Rectal exam not pe rformed. Extremities within normal limits. LABORATORY DATA: Reviewed. PLAN: Discharge home. I have asked the patient to slowly advance her diet. I have asked her not to use the gastrostomy tube. She will continue with her bowel regimen and we will see her back in the office. [id number]/[facility] #: [id number]
== END 2018-08-03 13:25 | disposition home or self-care (01) | DRG 389 ==
LOC: ED 18:23 → SSU 23:34 → OBSVTOIN 07-30 10:49 → SSU 08-01 16:18
PROVIDERS: ADMIT Surgery; ATTEND Surgery
PROC: 0D20X0Z Change Drainage Device in Upper Intestinal Tract, External Approach (ICD-10-PCS; principal; 2018-07-30)
DX: K56.7 Ileus, unspecified (principal); N39.0 Urinary tract infection, site not specified; K56.1 Intussusception; F90.9 Attention-deficit hyperactivity disorder, unspecified type; F41.9 Anxiety disorder, unspecified; F31.9 Bipolar disorder, unspecified; E87.6 Hypokalemia; B96.20 Unspecified Escherichia coli [E. coli] as the cause of diseases classified elsewhere; Z87.442 Personal history of urinary calculi; Z82.49 Family history of ischemic heart disease and other diseases of the circulatory system; Z90.49 Acquired absence of other specified parts of digestive tract; Z93.1 Gastrostomy status; Z23 Encounter for immunization; Z88.1 Allergy status to other antibiotic agents; Z88.0 Allergy status to penicillin; Z98.84 Bariatric surgery status; Z81.8 Family history of other mental and behavioral disorders; Z83.3 Family history of diabetes mellitus; Z82.5 Family history of asthma and other chronic lower respiratory diseases; D64.9 Anemia, unspecified
CPT/HCPCS: 36415; 49465; 74019; 74177; 76775; 80048; 80053; 81003; 81015; 82150; 83605; 83690; 83735; 84702; 85025; 85610; 85730; 86140; 86850; 86900; 86901; 87077; 87086; 87186; 90686; 99284; A9270-GY; G0378; J1170; J1885; J2185; J2405; J2765; Q9967

== ENCOUNTER 2018-09-03 10:50 | Inpatient (IN) | payer MEDICARE ==
--- OUTSIDE RECORDS SUMMARY | 2018-09-03 11:43 | XMS REPORT | Continuity of Care Document ---
:1975 External Reference #:[id number] Author Name Jono Sheffield MD Address [address] [place] [address] Care Team Providers Name Role Phone PAIGE Askew Care Team Information Cryptological Technician Unavailable Payers Type Date Identification Numbers Payment Provider Subscriber Policy Number: [id number] Medicare - Bswny Umd Gabe Reed PayID: [id number] [address] [place] [address] Expires: 2018 Policy Number: Medicaid After Gabe Reed [id number] Medicare Group Name: 2 1 [address] PayID: [id number] [place] [address] Advance Directives Description No Information Available Problems Date Description Provider Status Onset: 12/12/2013 Obesity Leny Hester M.D. Active Onset: 12/12/2013 Bipolar disorder Leny Hester M.D. 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 Tobacco Use Start: Unknown Never Smoked Cigarettes Smoking Status Reviewed: 06/16/18 Never Smoked Cigarettes ETOH Use Denies alcohol use Recreational Drug Use Denies Drug Use Allergies, Adverse Reactions, Alerts Date Description Reaction Status Severity Comments 05/13/2013 Penicillins Active 05/13/2013 Keflex Active Medications Medication Date Status Form Strength Qnty SIG Indications Ordering Provider Clonidine HCL 06/15 Active Tablets ER 0.1mg 60tab 1 tab by Jono ER 12HR s mouth twice tha Sheffield MD Amphetamine-De 06/15 Active Tablets 20mg 60tab 1 tab by Bre Silveira xtroamphetamin s mouth twice Merlin, e a day 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 Calcium 1200 11/17 Active Chewtabs [phone] Jono mg-Unit MD Yohannes Vitamin B-12 11/17 Active Tablets 500mcg 30tab 1 by mouth Bre Silveira s every day , Natural 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 Lamotrigine Active Tablets 150mg 60tab 1 by mouth Jono / s twice a day MD Yohannes Quetiapine Active Tablets 300mg 30tab take one Jono Fumarate /0000 s tablet by Yohannes mouth at MD bedtime Buspirone HCL Active Tablets 10mg 90tab take 1 Jono /0000 s tablet by Yohannes mouth 3 MD times per day as needed for anxiety Aripiprazole Active Tablets 2mg 30tab Take one Jono /0000 s tablet by Yohannes mouth every MD morning Miralax Active Packet [id number] start 2 Unknown packets dissolved in water by mouth twice a day Potassimin Active Unknown / Flintstones 11/17 Hx Chewtabs bid Kingsleyntchava Silveira Plus Storm, - 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 06/15 Senna 07/06 Hx Tablets 8.6mg 60tab 1 po bid if Shawnti R. 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 11/17 Azithromycin 06/08 Hx Tablets 250mg 6tabs 2 by mouth 462 every day Mike, - day 1, then M.D. 06/30 1 by mouth /2014 every day days 2-5 Urea 03/31 Hx Cream 20% 85gm apply to 782.9 Della feet q hs Randell, - then put 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 06/15 socks on. wash feet before applying Lamotrigine 12/12 Hx Tablets 25mg 70tab Take three Leny s tablets po Kierra Hester, - daily M.D. 06/15 Loratadine 12/12 Hx Tablets 10mg 30tab 1 po qd 780.4 Leny s Kierra Hester, - M.D. 11/17 Meclizine HCL 12/12 Hx Tablets 25mg 30tab one tablet 780.4 Leny s every 4-6 Kierra Hester, - hours as M.D. 11/17 needed dizziness No Active 06/27 Hx Unknown Medications - 06/27 Nystatin 06/27 Hx Cream [id number] 30gra use bid to t/GM m yeast rash P. Blegen, - on breasts M.D. 12/12 for up to weeks Nystatin 06/27 Hx Suspension [id number] QS 5 ml (1 t/ML teaspoon) P. Blegen, - swish and M.D. 12/12 swallow directed qid x 7 days (48 hours after symptoms resolve) Cortisporin 06/27 Hx Solution 3.5-35359 1unit otic- 4 -1 s drops ears P. Blegen, - tid x 7 days M.D. 12/12 And 05/13 Hx Tablets daily Shawnti R. 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 Merlin, - 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 06/27 Ranitidine HCL 05/13 Hx Capsules 150mg 1 po bid Shawnti R. , - 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 06/27 Amphetamine/De Hx Tablets 20mg 60tab 1 tablet by Jono xtroamphetamin / s mouth twice Heetderks, e - a day 06/15 Hydrocodone-Ac Hx Tablets 5-325mg Unknown etaminophen / - 11/17 Ciprofloxacin Hx Tablets 500mg Unknown HCL - 11/17 Clonidine HCL Hx Tablets ER 0.1mg 1 tab by Unknown 12HR mouth twice - a day 06/15 Immunizations CPT Code Status Date Vaccine Lot # [id number] Given 08/10/2018 Influenza Virus Vaccine, Quadrivalent, 3 Yr > [id number] Quad, Preserv Free [id number] Given 07/11/2018 Tdap (Adacel) [id number] Vital Signs Date Vital Result Comment 08/10/2018 10:58am BP Systolic 115 mmHg BP Diastolic 80 mmHg Heart Rate 92 /min Body Temperature 99.8 F O2 % BldC Oximetry 98 % 07/11/2018 10:28am Weight 122.00 lb Weight 55.339 kg BP Systolic 110 mmHg BP Diastolic 70 mmHg Heart Rate 68 /min Body Temperature 98.7 F Respiratory Rate 16 /min O2 % BldC Oximetry 99 % 06/15/2018 2:53pm Weight 118.00 lb Weight 53.525 kg BP Systolic 102 mmHg BP Diastolic 64 mmHg Heart Rate 69 /min Body Temperature 97.5 F Respiratory Rate 15 /min Height 60 inches 5'0" BMI (Body Mass Index) 23.0 kg/m2 O2 % BldC Oximetry 98 % 11/17/2015 2:32pm Weight 216.00 lb Weight 97.978 kg BP Systolic 120 mmHg BP Diastolic 84 mmHg Heart Rate 78 /min Body Temperature 97.9 F O2 % BldC Oximetry 96 % 07/04/2015 9:35am Weight 236.00 lb Weight 107.050 kg BP Systolic 112 mmHg BP Diastolic 80 mmHg Heart Rate 68 /min Body Temperature 99.2 F 06/08/2015 11:39am Weight 238.00 lb Weight 107.957 kg BP Systolic 112 mmHg BP Diastolic 78 mmHg Heart Rate 64 /min Body Temperature 98.8 F 04/28/2015 11:38am Weight 234.00 lb Weight 106.142 kg BP Systolic 128 mmHg BP Diastolic 80 mmHg Heart Rate 72 /min 03/31/2014 4:48pm Weight 227.00 lb Weight 102.967 kg BP Systolic 110 mmHg BP Diastolic 70 mmHg Heart Rate 80 /min 12/12/2013 8:38am Weight 234.00 lb Weight 106.142 kg BP Systolic 114 mmHg BP Diastolic 72 mmHg Heart Rate 84 /min Body Temperature 97.4 F 06/27/2013 1:20pm Weight 232.00 lb Weight 105.235 kg BP Systolic 128 mmHg BP Diastolic 86 mmHg Heart Rate 68 /min Body Temperature 97.8 F 05/13/2013 1:31pm Weight 234.00 lb Weight 106.142 kg BP Systolic 118 mmHg BP Diastolic 74 mmHg Heart Rate 74 /min Body Temperature 98.0 F Height 60.5 inches 5'0.50" BMI (Body Mass Index) 44.9 kg/m2 Right Visual Acuity Distance 20/25 corrected Left Visual Acuity Distance 20/25 corrected Both Visual Acuity Distance 20/25 corrected O2 % BldC Oximetry 98 % Results Test Date Facility Test Result H/L Range Note Urine Culture And 07/28/[address] [facility] Urine Culture SEE RESULT 1 Sensitivities [phone] BELOW Urinalysis Profile 07/28/[address] [facility] Urine Color Yellow [phone] Urine Appearance Clear Urine Specific [place] 1.010 1.010-1.030 Urine pH 6.0 5-9 Urine Urobilinogen Negative Negative Urine Ketones Negative Negative Urine Protein Negative Negative Urine Leukocytes 1+ Negative Urine Blood Negative Negative Urine Nitrite Negative Negative Urine Bilirubin Negative Negative Urine Glucose Negative Negative Urine White Blood Cell 1+(6-10/hpf) Absent Urine Red Blood Cell Trace(0-2/hpf) Absent Urine Bacteria 1+ Absent Urine Squamous Epithelial Cell Present Absent CBC Auto Diff 07/28/[address] [facility] White Blood 10.7 10^3/uL 3.5-10.8 [phone] Count Red Blood Count 3.70 10^6/uL Low 4.00-5.40 Hemoglobin 11.6 g/dL Low 12.0-16.0 Hematocrit 34 % Low 35-47 Mean Corpuscular Volume 91 fL 80-97 Mean Corpuscular Hemoglobin 31 pg 27-31 Mean Corpuscular HGB Conc 35 g/dL 31-36 Red Cell Distribution Width 13 % 10.5-15 Platelet Count 201 10^3/uL 150-450 Mean Platelet Volume 7.7 um3 7.4-10.4 Abs Neutrophils 5.4 10^3/uL 1.5-7.7 Abs Lymphocytes 3.5 10^3/uL 1.0-4.8 Abs Monocytes 1.3 10^3/uL High 0-0.8 Abs Eosinophils 0.2 10^3/uL 0-0.6 Abs Basophils 0.1 10^3/uL 0-0.2 Abs Nucleated RBC 0 10^3/uL Granulocyte % 51.0 % 38-83 Lymphocyte % 33.1 % 25-47 Monocyte % 12.6 % High 0-7 Eosinophil % 2.3 % 0-6 Basophil % 1.0 % 0-2 Nucleated Red Blood Cells % 0 Inr/Protime 07/28/[address] [facility] Inr 0.94 0.77- 1.02 [phone] Laboratory test 07/28/[address] [facility] Partial 30.8 seconds 26.0-36.3 finding [phone] Thrombo Time PTT Lactic Acid 1.2 mmol/L 0.5-2.0 2 Type & Screen 07/28/[address] [facility] Patient Blood O Positive [phone] Type Antibody Screen NEGATIVE Laboratory test 07/28/[address] [facility] Magnesium 1.9 mg/dL 1.9-2.7 finding [phone] Amylase 43 U/L 29-103 Lipase 40 U/L 11.0-82.0 C Reactive Protein < 1.00 mg/L <8.01 HCG < 0.60 mIU/mL 3 Comp Metabolic Panel 07/28/[address] [facility] Sodium 140 mmol/L 135-145 [phone] Potassium 3.8 mmol/L 3.5-5.0 Chloride 108 mmol/L 101-111 Co2 Carbon Dioxide 28 mmol/L 22-32 Anion Gap 4 mmol/L 2-11 Glucose 86 mg/dL 70-100 Blood Urea Nitrogen 11 mg/dL 6-24 Creatinine 0.56 mg/dL 0.51-0.95 BUN/Creatinine Ratio 19.6 8-20 Calcium 8.0 mg/dL Low 8.6-10.3 Total Protein 5.6 g/dL Low 6.4-8.9 Albumin 3.4 g/dL 3.2-5.2 Globulin 2.2 g/dL 2-4 Albumin/Globulin Ratio 1.5 1-3 Total Bilirubin 0.20 mg/dL 0.2-1.0 Alkaline Phosphatase 93 U/L 34-104 Alt 12 U/L 7-52 Ast 11 U/L Low 13-39 Egfr Non- 119.3 >60 Egfr 144.4 >60 4 Laboratory test 06/06/[address] [facility] Surgical SEE RESULT 5 finding [phone] Interface Order BELOW Laboratory test 06/04/[address] [facility] TSH (Thyroid 1.08 mcIU/mL 0.34- finding [phone] Stimulating Horm) 5.60 CBC Auto Diff 05/28/[address] [facility] White Blood Count 6.9 10^3/uL 3.5-5 [phone] 0.8 Red Blood Count 3.94 10^6/uL Low 4.00-5.40 [...] Cells % 0 Iron & Iron Binding 05/28/[address] [facility] Iron 78 g /dL 50-212 Capacity [phone] Unsaturated Iron Binding 213 g/dL Total Iron Binding Capacity 291 g/dL 250-450 Transferrin 208 mg/dL 203-362 % Iron Saturation 27 % 15-55 Laboratory test 05/28/[address] [facility] Ferritin 57.4 ng/mL 11-307 finding [phone] CBC Auto Diff 04/25/[address] [facility] White Blood 7.7 10^3/uL 3.5-10.8 [phone] Count Red Blood Count 3.92 10^6/uL Low 4.0-5.4 [...] Red Blood Cells % 0.1 Laboratory test 04/25/[address] [facility] Lactic Acid 0.9 mmol/L 0.5-2.0 6 finding [phone] Inr/Protime 04/25/[address] [facility] Inr 0.92 0.77- 1.02 [phone] Laboratory test 04/25/[address] [facility] Partial 31.1 seconds 26.0-36.3 finding [phone] Thrombo Time PTT Comp Metabolic 04/25/[address] [facility] Sodium 140 mmol/ L 139-145 Panel [phone] Potassium 3.7 mmol/L 3.5-5.0 Chloride 107 mmol/L [...] Egfr Non- 158.4 >60 Egfr 203.7 >60 7 Laboratory test 04/25/[address] [facility] Magnesium 2.1 mg/dL 1.9-2.7 finding [phone] Amylase 66 U/L 29-103 Lipase 60 U/L 11.0-82.0 C Reactive Protein < 1.00 mg/L < 5.00 8 Laboratory test 03/27/[address] [facility] Lactic Acid 1.9 mmol/L 0.5-2.0 9 finding [phone] CBC Auto Diff 03/27/[address] [facility] White Blood 8.5 10^3/uL 3.5-10.8 [phone] Count Red Blood Count 4.45 10^6/uL 4.0-5.4 Hemoglobin [...] Red Blood Cells % 0.1 Comp Metabolic 03/27/[address] [facility] Sodium 137 mmol/ L Low 139-145 Panel [phone] Potassium 3.9 mmol/L 3.5-5.0 Chloride 104 mmol/L [...] Egfr Non- 112.9 >60 Egfr 145.2 >60 10 Laboratory test 03/27/[address] [facility] Lipase 38 U/L 11.0-82.0 finding [phone] C Reactive Protein < 1.00 mg/L < 5.00 11 HCG < 0.60 mIU/mL 12 Type & Screen 03/27/[address] [facility] Patient Blood O Positive [phone] Type Antibody Screen NEGATIVE Urinalysis Profile 03/27/[address] [facility] Urine Color Yellow [phone] Urine Appearance Cloudy Urine Specific [place] 1.027 1.010-1.030 Urine pH 5.0 5-9 Urine [...] Cell Present Absent Urine Culture And 03/27/[address] [facility] Urine Culture SEE RESULT 13 Sensitivities [phone] BELOW CBC Auto Diff 02/19/[address] [facility] White Blood 7.3 10^3/uL 3.5-5 [phone] Count 0.8 Red Blood Count 3.95 10^6/uL Low 4.0-5.4 [...] Cells % 0 Iron & Iron Binding 02/19/[address] [facility] Iron 44 g /dL Low 50-212 Capacity [phone] Unsaturated Iron Binding 277 g/dL Total Iron Binding Capacity 321 g/dL 250-450 Transferrin 229 mg/dL 203-362 % Iron Saturation 14 % Low 15-55 Laboratory test 02/19/[address] [facility] Ferritin 43.9 ng/mL 11-307 finding [phone] Inr/Protime 02/15/[address] [facility] Inr 1.01 0.77- 1.02 [phone] Laboratory test 02/15/[address] [facility] Partial 32.1 seconds 26.0-36.3 finding [phone] Thrombo Time PTT Comp Metabolic 02/15/[address] [facility] Sodium 141 mmol/ L 139-145 Panel [phone] Potassium 3.2 mmol/L Low 3.5-5.0 Chloride 106 [...] Egfr Non- 139.9 >60 Egfr 179.9 >60 14 Laboratory test 02/15/[address] [facility] Lipase 46 U/L 11.0-82.0 finding [phone] C Reactive Protein < 1.00 mg/L < 5.00 15 Lactic Acid 1.0 mmol/L 0.5-2.0 16 CBC Auto Diff 02/15/[address] [facility] White Blood 8.0 10^3/uL 3.5-10.8 [phone] Count Red Blood Count 3.86 10^6/uL Low 4.0-5.4 [...] Nucleated Red Blood Cells % 0 Wound 02/07/[address] [facility] Wound/Misc SEE RESULT 17 Culture/Sensi [phone] Culture-Gram BELOW Stain Laboratory test 02/07/[address] [facility] MRSA/S. aureus SEE RESULT 18 finding [phone] Ssti PCR BELOW Basic Metabolic 02/07/[address] [facility] Sodium 136 mmol /L 133- Panel [phone] 145 Potassium 3.7 mmol/L 3.5-5.0 Chloride 104 mmol/L 101-111 Co2 Carbon Dioxide 25 mmol/L 22-32 Anion Gap 7 mmol/L 2-11 Glucose 81 mg/dL 70-100 Blood Urea Nitrogen 12 mg/dL 6-24 Creatinine 0.40 mg/dL Low 0.51-0.95 BUN/Creatinine Ratio 30.0 High 8-20 Calcium 8.6 mg/dL 8.6-10.3 Egfr Non- 176.8 >60 Egfr 227.4 >60 19 Laboratory test 02/07/[address] [facility] C Reactive 27.31 mg/L High < 5.00 20 finding [phone] Protein CBC Auto Diff 02/07/[address] [facility] White Blood 10.6 3.5-10.8 [phone] Count 10^3/uL Red Blood Count 3.66 10^6/uL Low 4.0-5.4 [...] Red Blood Cells % 0 Laboratory test 02/07/[address] [facility] Blood Culture SEE RESULT 21 finding [phone] BELOW Urinalysis Profile 01/28/[address] [facility] Urine Color Yellow [phone] Urine Appearance Clear Urine Specific [place] 1.036 High 1.010-1.030 Urine pH 6.0 5-9 Urine Urobilinogen Negative Negative Urine Ketones Negative Negative Urine Protein Negative Negative Urine Leukocytes Negative Negative Urine Blood Negative Negative Urine Nitrite Negative Negative Urine Bilirubin Negative Negative Urine Glucose Negative Negative Comp Metabolic 01/28/[address] [facility] Sodium 135 mmol/ L 133-145 22 Panel [phone] Potassium 3.3 mmol/L Low 3.5-5.0 Chloride 103 mmol/L 101-111 Co2 Carbon Dioxide 25 mmol/L 22-32 Anion Gap 7 mmol/L 2-11 Glucose 97 mg/dL 70-100 Blood Urea Nitrogen 12 mg/dL 6-24 Creatinine 0.56 mg/dL 0.51-0.95 BUN/Creatinine Ratio 21.4 High 8-20 Calcium 9.5 mg/dL 8.6-10.3 Total Protein 7.4 g/dL 6.4-8.9 Albumin 4.1 g/dL 3.2-5.2 Globulin 3.3 g/dL 2-4 Albumin/Globulin Ratio 1.2 1-3 Total Bilirubin 0.50 mg/dL 0.2-1.0 Alkaline Phosphatase 115 U/L High 34-104 Alt 25 U/L 7-52 Ast 20 U/L 13-39 Egfr Non- 119.9 >60 Egfr 154.2 >60 23 Laboratory test 01/28/[address] [facility] Magnesium 1.8 mg/dL Low 1.9-2.7 finding [phone] Amylase 65 U/L 29-103 Lipase 46 U/L 11.0-82.0 C Reactive Protein < 1.00 mg/L < 5.00 24 HCG < 0.60 mIU/mL 25 Lactic Acid 1.0 mmol/L 0.5-2.0 26 Inr/Protime 01/28/[address] [facility] Inr 0.95 0.77- 1.02 [phone] Laboratory test 01/28/[address] [facility] Partial 32.7 seconds 26.0-36.3 finding [phone] Thrombo Time PTT CBC Auto Diff 01/28/[address] [facility] White Blood 7.5 10^3/uL 3.5-10.8 [phone] Count Red Blood Count 4.94 10^6/uL 4.0-5.4 Hemoglobin 13.5 g/dL 12.0-16.0 Hematocrit 40 % 35-47 Mean Corpuscular Volume 81 fL 80-97 Mean Corpuscular Hemoglobin 27 pg 27-31 Mean Corpuscular HGB Conc 34 g/dL 31-36 Red Cell Distribution Width 23 % High 10.5-15 Platelet Count 237 10^3/uL 150-450 Mean Platelet Volume 7 um3 Low 7.4-10.4 Abs Neutrophils 4.8 10^3/uL 1.5-7.7 Abs Lymphocytes 2.0 10^3/uL 1.0-4.8 Abs Monocytes 0.5 10^3/uL 0-0.8 Abs Eosinophils 0.2 10^3/uL 0-0.6 Abs Basophils 0.1 10^3/uL 0-0.2 Abs Nucleated RBC 0 10^3/uL Granulocyte % 64.5 % 38-83 Lymphocyte % 26.7 % 25-47 Monocyte % 6.1 % 0-7 Eosinophil % 2.0 % 0-6 Basophil % 0.7 % 0-2 Nucleated Red Blood Cells % 0 Laboratory test 01/12/[address] [facility] Pathologist Review (SEE NOTE) 27 finding [phone] Cell Morphology 01/12/[address] [facility] Anisocytosis 2 + [phone] Elliptocyte 1+ CBC Auto Diff 01/12/[address] [facility] White Blood 7.0 10^3/uL 3.5-10.8 [phone] Count Red Blood Count 4.62 10^6/uL 4.0-5.4 Hemoglobin [...] Red Blood Cells % 0 Laboratory test 01/12/[address] [facility] Ferritin 89.6 ng/mL 11-307 finding [phone] Vitamin D Total 25(Oh) 40.8 ng/mL 20-50 Iron & Iron Binding 01/12/[address] [facility] Iron 79 g /dL 50-212 Capacity [phone] Unsaturated Iron Binding 229 g/dL Total Iron Binding Capacity 308 g/dL 250-450 % Iron Saturation 26 % 15-55 Laboratory test 01/12/[address] [facility] Magnesium 2.0 mg/dL 1.9-2.7 finding [phone] Comp Metabolic 01/12/[address] [facility] Sodium 138 mmol/ L 133-145 Panel [phone] Potassium 3.6 mmol/L 3.5-5.0 Chloride 108 mmol/L [...] Egfr Non- 112.9 >60 Egfr 145.2 >60 28 CBC Auto 12/02/[address] [facility] White Blood 14.6 10^3/ uL High 3.5-10.8 Diff [phone] Count Red Blood Count 4.05 10^6/uL 4.0-5.4 Hemoglobin [...] Red Blood Cells % 0 Laboratory test 12/02/[address] [facility] Lactic Acid 1.2 mmol/L 0.5-2.0 29 finding [phone] Comp Metabolic 12/02/[address] [facility] Sodium 139 mmol/ L 133-145 Panel [phone] Potassium 3.5 mmol/L 3.5-5.0 Chloride 111 mmol/L [...] Egfr Non- 136.6 >60 Egfr 175.7 >60 30 Laboratory test 12/02/[address] [facility] Magnesium 1.7 mg/dL Low 1.9-2.7 finding [phone] Amylase 83 U/L 29-103 C Reactive Protein 3.62 mg/L < 5.00 31 HCG 3.04 mIU/mL 32 Laboratory test 12/02/[address] [facility] Lactic Acid 1.3 mmol/L 0.5-2.0 33 finding [phone] Arterial Blood 12/02/[address] [facility] O2 Device nasal cannula Gas [phone] Fio2 37 PH Arterial 7.35 7.35-7.45 Pco2 Arterial 35 mmHg 35-45 Po2 Arterial 153 mmHg High 80-100 O2 Saturation Arterial 99.5 % High 95-98 Base Excess Arterial -5.7 Low -2.0-2.0 34 Hco3 Arterial 20.5 mmol/L 19-31 Laboratory test 12/02/[address] [facility] Lactic Acid 2.1 mmol/L High 0.5-2.0 35 finding [phone] Laboratory test 12/02/[address] [facility] Inr 1.00 0.77-1.02 finding [phone] CBC Auto Diff 12/01/[address] [facility] White Blood 12.2 High 3.5-10.8 [phone] Count 10^3/uL Red Blood Count 4.00 10^6/uL 4.0-5.4 Hemoglobin [...] Red Blood Cells % 0.1 Laboratory test 12/01/[address] [facility] Urine Culture SEE RESULT 36 finding [phone] BELOW Urinalysis Profile 12/01/[address] [facility] Urine Color Yellow [phone] Urine Appearance Cloudy Urine Specific [place] 1.022 1.010-1.030 Urine pH 5.0 5-9 Urine Urobilinogen Negative Negative Urine Ketones Trace Negative Urine Protein 1+(30 mg/dL) Negative Urine Leukocytes Trace Negative Urine Blood 2+ Negative * * Negative 37 Urine Nitrite Negative Negative Urine Bilirubin Negative Negative Urine Glucose 3+(>=500 mg/dL) Negative Urine White Blood Cell Trace(0-5/hpf) Absent Urine Red Blood Cell Absent Absent Urine Bacteria Absent Absent Urine Squamous Epithelial Cell Present Absent Comp Metabolic Panel 12/01/[address] [facility] Sodium 134 mmol/L 133-145 [phone] Potassium 3.5 mmol/L 3.5-5.0 Chloride 105 mmol/L [...] Egfr Non- 115.1 >60 Egfr 148.1 >60 38 Laboratory test 12/01/[address] [facility] Lipase 41 U/L 11.0-82.0 39 finding [phone] Amylase 58 U/L 29-103 40 CBC No Diff 11/22/[address] [facility] White Blood 5.1 10^ 3/uL 3.5-10.8 [phone] Count Red Blood Count 3.89 10^6/uL Low 4.0-5.4 Hemoglobin 9.4 g/dL Low 12.0-16.0 Hematocrit 29 % Low 35-47 Mean Corpuscular Volume 76 fL Low 80-97 Mean Corpuscular Hemoglobin 24 pg Low 27-31 Mean Corpuscular HGB Conc 32 g/dL 31-36 Red Cell Distribution Width 15 % 10.5-15 Platelet Count 302 10^3/uL 150-450 Mean Platelet Volume 8 um3 7.4-10.4 Iron & Iron Binding 11/22/[address] [facility] Iron 17 g /dL Low 50-212 Capacity [phone] Unsaturated Iron Binding 491 g/dL Total Iron Binding Capacity 508 g/dL High 250-450 % Iron Saturation 3 % Low 15-55 Laboratory test 11/03/[address] [facility] Magnesium 1.9 mg/dL 1.9-2.7 finding [phone] Comp Metabolic 11/03/[address] [facility] Sodium 136 mmol/ L 133-145 Panel [phone] Potassium 3.4 mmol/L Low 3.5-5.0 Chloride 102 [...] Egfr Non- 109.8 >60 Egfr 141.2 >60 41 CBC Auto 11/03/[address] [facility] White Blood 12.5 10^3/ uL High 3.5-10.8 Diff [phone] Count Red Blood Count 3.96 10^6/uL Low 4.0-5.4 [...] 0-2 Nucleated Red Blood Cells % 0 CBC Auto Diff 11/01/[address] [facility] White Blood 10.5 10^3/uL 3.5-10.8 [phone] Count Red Blood Count 3.96 10^6/uL Low 4.0-5.4 [...] Cells % 0.1 Laboratory test finding 11/01/[address] [facility] Inr 1.10 0.89-1.11 [phone] Potassium Redraw 3.1 mmol/L Low 3.5-5.0 Ast Redraw 149 U/L High 13-39 Laboratory test 11/01/[address] [facility] Amylase 32 U/L 29-103 finding [phone] Lipase 22 U/L 11.0-82.0 Creatine Kinase 46 U/L 10-223 C Reactive Protein 115.40 mg/L High < 5.00 42 Troponin I 0.01 ng/mL <0.03 43 Serum HCG Qualitative Negative Negative Comp Metabolic Panel 11/01/[address] [facility] Sodium 135 mmol/L 133-145 [phone] Chloride 104 mmol/L 101-111 Co2 Carbon Dioxide [...] Egfr Non- 118.7 >60 Egfr 152.7 >60 44 Potassium TNP mmol/L 3.5-5.0 Anion Gap TNP mmol/L 2-11 Ast TNP U/L 13-39 Urinalysis Profile 11/01/[address] [facility] Urine Color Yellow [phone] Urine Appearance Clear Urine Specific [place] 1.004 Low 1.010-1.030 Urine pH 7.0 5-9 Urine Urobilinogen Negative Negative Urine Ketones Negative Negative Urine Protein Negative Negative Urine Leukocytes Negative Negative Urine Blood Negative Negative Urine Nitrite Negative Negative Urine Bilirubin Negative Negative Urine Glucose Negative Negative CBC Auto Diff 10/19/[address] [facility] White Blood 10.4 10^3/uL 4.8-10.8 [phone] Count Red Blood Count 4.25 10^6/uL 4.0-5.4 Hemoglobin [...] Cells % 0 Comp Metabolic Panel 10/19/[address] [facility] Sodium 133 mmol/L 133-145 [phone] Potassium 4.0 mmol/L 3.5-5.0 Chloride 102 mmol/L [...] Egfr Non- 107.7 >60 Egfr 138.5 >60 45 Laboratory test 08/11/[address] [facility] Surgical SEE RESULT 46 finding [phone] Pathology BELOW Laboratory test 08/11/[address] [facility] Clotest SEE RESULT 47 finding [phone] BELOW CBC Auto Diff 07/02/[address] [facility] White Blood 9.2 10^3/uL 4.8-10 [phone] Count .8 Red Blood Count 4.41 10^6/uL 4.0-5.4 Hemoglobin [...] Blood Cells % 0 Urinalysis Profile 07/02/[address] [facility] Urine Color Yellow [phone] Urine Appearance Cloudy Urine Specific [place] 1.011 1.010-1.030 Urine pH 6.0 5-9 Urine Urobilinogen Negative Negative Urine Ketones Negative Negative Urine Protein Negative Negative Urine Leukocytes 1+ Negative Urine Blood Negative Negative Urine Nitrite Negative Negative Urine Bilirubin Negative Negative Urine Glucose Negative Negative Urine White Blood Cell 1+(6-10/hpf) Absent Urine Red Blood Cell Trace(0-2/hpf) Absent Urine Bacteria Absent Absent Urine Squamous Epithelial Cell Present Absent Comp Metabolic Panel 07/02/[address] [facility] Sodium 136 mmol/L 133-145 [phone] Potassium 4.0 mmol/L 3.5-5.0 Chloride 104 mmol/L [...] Egfr Non- 103.9 >60 Egfr 133.6 >60 48 Laboratory 07/02/[address] [facility] Urine Culture SEE RESULT 49 test finding [phone] BELOW Laboratory 07/02/[address] [facility] Serum HCG Negative Negative test finding [phone] Qualitative Laboratory 06/08/2015 In House Lab Strep Screen NEG Neg test finding ([phone] - Laboratory 04/28/[address] [facility] Hemoglobin A1c 5.3 % Less than 50 test finding [phone] (Glyco HGB) 6.0 Lipid Profile 04/28/[address] [facility] Triglycerides 67 mg/dL 51 (Trig/Chol/HDL [phone] ) Cholesterol 124 mg/dL 52 HDL Cholesterol 42.8 mg/dL 53 LDL Cholesterol 68 mg/dL 54 Laboratory test 04/28/[address] [facility] TSH (Thyroid 2.44 0.34-5.60 finding [phone] Stim Horm) ?IU/mL Laboratory test 03/31/[address] [facility] Fungal Cult ( SEE NOTE) 55 finding [phone] Skin/Hair/Nails Urine DIP 12/12/2013 In House Lab Leukocytes neg Neg (497)- - Urine Nitrites neg Neg Urine pH 5 5-6 Total Protein, Urine neg Neg Urine Glucose norm Norm Urine Ketones neg Neg Urobilinogen norm Norm Urine Bilirubin neg Neg Urine Blood neg Neg Specific [place] 1.020 1.01-1.02 Laboratory test 12/02/[address] [facility] TSH (Thyroid 1.93 0.34-5.60 finding [phone] Stimulating miu/mL Horm) CBC Auto Diff 12/02/[address] [facility] White Blood 9.9 4.8-10.8 [phone] Count 10^3/uL Red Blood Count 4.36 10^6/uL 4.0-5.4 Hemoglobin [...] Red Blood Cells % 0.1 CBC Auto 10/20/[address] [facility] White Blood 12.7 10^3/ uL High 4.8-10.8 Diff [phone] Count Red Blood Count 4.07 10^6/uL 4.0-5.4 Hemoglobin [...] 0-2 Nucleated Red Blood Cells % 0.1 Type & Screen 10/20/[address] [facility] Patient Blood O Positive [phone] Type Antibody Screen NEGATIVE Laboratory test 10/20/[address] [facility] Magnesium 1.9 mg/dL 1.7-2.6 finding [phone] Lactic Acid 1.3 mmol/L 0.5-1.6 Lipase 33 U/L 22-51 C Reactive Protein 0.7 mg/dL High Less than 0.5 Comp Metabolic Panel 10/20/[address] [facility] Sodium 138 mmol/L 133-145 [phone] Potassium 3.7 mmol/L 3.5-5.0 Chloride 109 mmol/L [...] Egfr Non- 113.1 >60 Egfr 145.5 >60 56 Laboratory 10/20/[address] [facility] Serum Negative Negative 57 test finding [phone] CBC Auto Diff 10/20/[address] [facility] White Blood 12.0 10^3/uL High 4.8-10.8 [phone] Count Red Blood Count 4.46 10^6/uL 4.0-5.4 Hemoglobin [...] Blood Cells % 0.1 Urine Microscopic 10/20/[address] [facility] Urine WBC 1+ (<10 None Seen [phone] /hpf) Urine RBC 3+ (>10 /hpf) None Seen Urine Epithelial Cells 1+ Squamous /hpf None Seen Bacteria Urine None Seen None Seen Urinalysis 10/20/[address] [facility] Urine Color Yellow [phone] Urine Appearance Clear Urine Specific [place] 1.019 1.010-1.030 Urine Esterase Negative Negative Urine Nitrate Negative Negative Urine Urobilinogen Negative E.U./dL Negative Urine Protein Negative mg/dL Negative Urine pH 5.5 5-9 Urine Blood 3+ Negative Urine Ketones Negative mg/dL Negative Urine Bilirubin Negative Negative Urine Glucose Negative mg/dL Negative GC/Chlamydia 10/20/[address] [facility] GC/Chlamydia Rna ( SEE NOTE) 58 Amplified Rna [phone] Affirm Vaginal Dna 10/20/[address] [facility] Affirm Vaginal (SEE NOTE) 59 Probe [phone] Dna Probe Laboratory test 06/27/2013 In House Lab Strep Screen neg Neg finding ([phone])- - Urine DIP 05/13/2013 In House Lab Leukocytes ++ Neg (607)- - Urine Nitrites neg Neg Urine pH 5 5-6 Total Protein, Urine trace Neg Urine Glucose norm Norm Urine Ketones neg Neg Urobilinogen norm Norm Urine Bilirubin neg Neg Urine Blood trace Neg Specific [place] 1.015 1.01-1.02 1 SEE RESULT BELOW Name: GABE REED : [address]: Hai Tran MD Acct: [id number] Unit: [id number] AGE: 43 Location: [place] [address] Re07/30/18 SEX: F Status: ADM IN SPEC: [id number] RIGO: 07/28/[address] [facility] [address]: Umang Charles MD REQ: [id number] RECD: 07/28/18 STATUS: LIZETH MYRICK DR: Bre Boyer COMMUNITY HEALTH DIRECTOR _ SOURCE: URINE SPDESC: ORDERED: Urine Culture Procedure Result Reported Site Urine Culture Final 07/30/18- 0831 ML Organism 1 ESBL ESCHERICHIA COLI Elizabeth Count 50-75,000 (Many) CFU/ML ESBL E. COLI: Consistent with previous results. 1. ESBL ESCHERICHIA COLI M.I.C. RX --------- ------ Ampicillin >=32 R Cefazolin >=64 R Cefepime R Ceftriaxone R Ciprofloxacin >=4 R Gentamicin <=1 S Levofloxacin >=8 R Meropenem <=0.25 S Nitrofurantoin <=16 S Tetracycline >=16 R Pipercillin/Tazobactam <=4 S Trimethoprim/Sulfamethoxazole >=320 R Amoxicillin/Clavulanic Acid 4 S Aztreonam R Contact the Microbiology Department for any additional antibiotic reporting. * ML - Main Lab . END OF REPORT DEPARTMENT OF PATHOLOGY, [address] [place] [address] Anuj Solis M.D. Director [facility] # [id number] 2 [facility] Severe Sepsis and Septic Shock Management Bundle Measure requires all lactic acids initially measuring >2.0 mmol/L be repeated. 3 <5.0 Negative 5.0 - 25.0 Indeterminate (Repeat testing recommended after 72 hours) >25.0 Positive Perimenopausal women can display HCG levels of up to 20 mIU/mL 4 Because ethnic data is not always [...] 5 Kidney failure <15 (or dialysis) 5 SEE RESULT BELOW Name: GABE REED : [address]: Alejandro Whitley MD Acct: [id number] Unit: [id number] AGE: 43 Location: [facility] 350-02 Re06/05/18 Dis: 06/08/18 SEX: F Status: DIS IN SPEC: [id number] RIGO: 06/06/18- SUBM DR: Francheska Santana DO REQ: [id number] RECD: 06/06/18 STATUS: STEVO MYRICK DR: Alejandro Boyer COMMUNITY HEALTH DIRECTOR _ ORDERED: LEVEL 4/3 FINAL DIAGNOSIS 1. [...] CONTINUED ON NEXT PAGE DEPARTMENT OF PATHOLOGY, [address] [place] [address] Anuj Solis M.D. Director [facility] # [id number] RUN DATE: 06/08/[address] [facility] LIVE PAGE 2 Patient: GABE REED [id number] (Continued) GROSS DESCRIPTION (Continued) GROSS DESCRIPTION (Continued) entirely in one cassette. 3. The specimen is received in formalin labeled, Biopsy [place], and consists of a 0.4 x 0.2 x 0.1 cm nevarez-white irregular soft tissue fragment which is submitted entirely in one cassette. Signed by and Reported on: Genesis Alvarez MD 06/08/18 1542 END OF REPORT DEPARTMENT OF PATHOLOGY, [address] [place] [address] Anuj Solis M.D. Director [facility] # [id number] 6 [facility] Severe Sepsis and Septic Shock Management Bundle Measure requires all lactic acids initially measuring >2.0 mmol/L be repeated. 7 Because ethnic data is not always readily [...] 15-29 5 Kidney failure <15 (or dialysis) 8 Acute inflammation: >10.00 9 [facility] Severe Sepsis and Septic Shock Management Bundle Measure requires all lactic acids initially measuring >2.0 mmol/L be repeated. 10 Because ethnic data is not always [...] (or dialysis) 11 Acute inflammation: >10.00 12 <5.0 Negative 5.0 - 25.0 Indeterminate (Repeat testing recommended after 72 hours) >25.0 Positive Perimenopausal women can display HCG levels of up to 20 mIU/mL 13 SEE RESULT BELOW Name: VANDA REED : [address]: Aljeandro Whitley MD Acct: [id number] Unit: [id number] AGE: 42 Location: [place] [address] Re03/27/18 SEX: F Status: ADM IN SPEC: [id number] RIGO: 03/27/[address] [facility] [address]: Umang Charles MD REQ: [id number] RECD: 03/27/18 STATUS: LIZETH MYRICK DR: Bre Boyer COMMUNITY HEALTH DIRECTOR _ SOURCE: URINE SPDESC: ORDERED: Urine Culture Procedure Result Reported Site Urine Culture Final 03/28/18- 1213 ML No Growth (<1,000 CFU/mL) * ML - Main Lab . END OF REPORT DEPARTMENT OF PATHOLOGY, [address] [place] [address] Anuj Solis M.D. Director [facility] # [id number] 14 Because ethnic data is not always readily [...] 15-29 5 Kidney failure <15 (or dialysis) 15 Acute inflammation: >10.00 16 [place] Severe Sepsis and Septic Shock Management Bundle Measure requires all lactic acids initially measuring >2.0 mmol/L be repeated. 17 SEE RESULT BELOW Name: GABE REED : [address]: Don Bush MD Acct: [id number] Unit: [id number] AGE: 42 Location: ED Re02/07/18 SEX: F Status: DEP ER SPEC: [id number] RIGO: 02/07/18-[address] [facility] [address]: Don Bush MD REQ: [id number] RECD: 02/07/18 STATUS: RES [facility] DR: Bre Boyer COMMUNITY HEALTH DIRECTOR _ SOURCE: ABDOMEN SPDESC: ORDERED: MRSA/SA SSTI, Culture Stain Procedure Result Reported Site MRSA/S. aureus SSTI PCR PENDING Wound/Misc Gram Stain Final 02/07/18- 1711 ML 4+ Neutrophils 4+ Nucleated Cells 3+ Gram Positive Cocci Intracellular Wound/Misc Culture PENDING * ML - Main Lab . END OF REPORT DEPARTMENT OF PATHOLOGY, [address] [place] [address] Anuj Solis M.D. Director [facility] # [id number] 18 SEE RESULT BELOW Name: VANDA REED : [address]: Don Bush MD Acct: [id number] Unit: [id number] AGE: 42 Location: ED Re02/07/18 SEX: F Status: DEP ER SPEC: [id number] RIGO: 02/07/18-[address] [facility] [address]: Don Bush MD REQ: [id number] RECD: 02/07/18 STATUS: LIZETH MYRICK DR: Bre Boyer COMMUNITY HEALTH DIRECTOR _ SOURCE: ABDOMEN SPDESC: ORDERED: MRSA/SA SSTI, Culture Stain COMMENTS: Verbal to [id number] by [id number] at 1823 on 02/07/18. Results read back [...] CONTINUED ON NEXT PAGE DEPARTMENT OF PATHOLOGY, [address] [place] [address] Anuj Solis M.D. Director [facility] # [id number] Patient: GABE REED [id number] (Continued) Specimen: [id number] Collected: 02/07/18-1619 Received: 02/07/18-1640 (Continued) Procedure Result Reported Site Wound/Misc Culture Final (continued) 02/09/18- 1029 1. STAPHYLOCOCCUS AUREUS (continued) M.I.C. RX --------- ------ * Minocycline - Deduced S Trimethoprim/Sulfamethoxazole <=10 S Vancomycin 1 S Imipenem-Deduced S * Ampicillin/Sulbactam-Deduced S Cefazolin-Deduced S * These antibiotics are not available in the [facility] Formulary Contact the Microbiology Department for any additional antibiotic reporting. * ML - Main Lab . END OF REPORT DEPARTMENT OF PATHOLOGY, [address] [place] [address] Anuj Solis M.D. Director [facility] # [id number] 19 Because ethnic data is not always [...] (or dialysis) 20 Acute inflammation: >10.00 21 SEE RESULT BELOW Name: GABE REED : [address]: Don Bush MD Acct: [id number] Unit: [id number] AGE: 42 Location: ED Re02/07/18 SEX: F Status: DEP ER SPEC: [id number] RIGO: 02/07/[address] [facility] [address]: Don Bush MD REQ: [id number] RECD: 02/07/18 STATUS: LIZETH MYRICK DR: Bre Boyer NP _ SOURCE: BLOOD,VENO SPDESC: ORDERED: Blood Cult Procedure Result Reported Site Aerobic Culture Bottle Final 02/12/18- 1431 ML No Growth Day 5 Anaerobic Culture Bottle Final 02/12/18- 1431 ML No Growth Day 5 * ML - Main Lab . END OF REPORT DEPARTMENT OF PATHOLOGY, [address] [place] [address] Anuj Solis M.D. Director [facility] # [id number] 22 RBC Frag/Micro 23 Because ethnic data is not always [...] 5 Kidney failure <15 (or dialysis) 24 Acute inflammation: >10.00 25 <5.0 Negative 5.0 - 25.0 Indeterminate (Repeat testing recommended after 72 hours) >25.0 Positive Perimenopausal women can display HCG levels of up to 20 mIU/mL 26 [facility] Severe Sepsis and Septic Shock Management Bundle Measure requires all lactic acids initially measuring >2.0 mmol/L be repeated. 27 Mild anisocytosis and macrocytosis noted. Mild reactive monocytosis noted. Clinical correlation and additional studies as warranted. Reviewed by Dr. Solis 28 Because ethnic data is not always readily [...] 15-29 5 Kidney failure <15 (or dialysis) 29 [facility] Severe Sepsis and Septic Shock Management Bundle Measure requires all lactic acids initially measuring >2.0 mmol/L be repeated. 30 Because ethnic data is not always readily [...] 15-29 5 Kidney failure <15 (or dialysis) 31 Acute inflammation: >10.00 32 <5.0 Negative 5.0 - 25.0 Indeterminate (Repeat testing recommended after 72 hours) >25.0 Positive Perimenopausal women can display HCG levels of up to 20 mIU/mL 33 [facility] Severe Sepsis and Septic Shock Management Bundle Measure requires all lactic acids initially measuring >2.0 mmol/L be repeated. 34 Reference ranges based on room air. 35 Critical Result LACT:2.1 Called to [id number] at: 03:32:43 by:[id number] Read back by:[id number] [facility] Severe Sepsis and Septic Shock Management Bundle Measure requires all lactic acids initially measuring >2.0 mmol/L be repeated. 36 SEE RESULT BELOW Name: GABE REED : [address]: John Ohara MD Acct: [id number] Unit: [id number] AGE: 42 Location: [place] [address]- Re12/02/17 SEX: F Status: ADM IN SPEC: [id number] RIGO: 12/01/[address] [facility] [address]: Turner Sharp MD REQ: [id number] RECD: 12/02/17 STATUS: LIZETH MYRICK DR: Bre Boyer NP _ SOURCE: URINE SPDESC: ORDERED: Urine Culture Procedure Result Reported Site Urine Culture Final 12/05/17- 0854 ML Organism 1 ESBL ESCHERICHIA COLI Elizabeth Count 50-75,000 (Many) CFU/ML Organism 2 NORMAL EDELMIRA Elizabeth Count 1-10,000 (Few) CFU/ML This isolate is an Extended Spectrum Beta-Lactamase Airplane Fueler (ESBL) strain, and as such is considered [...] performed at Main Lab DEPARTMENT OF PATHOLOGY, [address] [place] [address] Anuj Solis M.D. Director [facility] # [id number] Patient: GABE REED [id number] (Continued) Specimen: [id number] Collected: 12/01/17-2353 Received: 12/02/17-0009 (Continued) Procedure Result Reported Site Urine Culture Final (continued) Contact the Microbiology Department for any additional antibiotic reporting. * ML - MAIN LAB ([facility]) . END OF REPORT * ML=Testing performed at Main Lab DEPARTMENT OF PATHOLOGY, [address] [place] [address] Anuj Solis M.D. Director [facility] # [id number] 37 *Ascorbic acid is present which may interfere with detection of blood. 38 Because ethnic data is not always readily [...] 15-29 5 Kidney failure <15 (or dialysis) 39 THE AMYLASE IS A VERBAL ORDER FROM ED 40 THE AMYLASE IS A VERBAL ORDER FROM ED 41 Because ethnic data is not always [...] 5 Kidney failure <15 (or dialysis) 42 Acute inflammation: >10.00 43 Reference Range and Interpretation: TnI (ng/mL) Interpretation Less Than 0.03 ng/mL Not supportive of diagnosis of [place] 0.03 - 0.50 ng/mL Indeterminate: suggest serial studies if clinically indicated. Greater than 0.5 ng/mL Consistent with diagnosis of [place] 44 Because ethnic data is not always readily [...] 15-29 5 Kidney failure <15 (or dialysis) 45 Because ethnic data is not always [...] 5 Kidney failure <15 (or dialysis) 46 SEE RESULT BELOW Name: GABE REED : [address]: Dixon Parry MD Acct: [id number] Unit: [id number] AGE: 40 Location: ENDO Re08/11/15 SEX: F Status: REG REF SPEC: [id number] RIGO: 08/11/15- [facility] DR: Dixon Parry MD REQ: [id number] RECD: 08/11/15-141 STATUS: STEVO MYRICK DR: Alejandro Boyer COMMUNITY HEALTH DIRECTOR _ ORDERED: H PYLORI IMM ST, LEVEL IV FINAL DIAGNOSIS Stomach, greater curvature, [...] hernia right groin age 14, lithotripsy 2011 [place]. For EGD POST-OPERATIVE DIAGNOSIS EGD - larynx [...] performed at Main Lab DEPARTMENT OF PATHOLOGY, [address] [place] [address] Anuj Solis M.D. Director [facility] # [id number] 47 SEE RESULT BELOW Name: GABE REED : [address]: Dixon Parry MD Acct: [id number] Unit: [id number] AGE: 40 Location: ENDO Re08/11/15 SEX: F Status: REG REF SPEC: [id number] RIGO: 08/11/15-[address] [facility] [address]: Dixon Parry MD REQ: [id number] RECD: 08/11/15-1011 STATUS: LIZETH MYRICK DR: Bre Boyer NP _ SOURCE: GAS ANTRUM SPDESC: ORDERED: Clotest Procedure Result Verified Site Clotest Final 08/12/15- 734 ML Clotest Positive * ML - MAIN LAB ([facility]) . END OF REPORT * ML=Testing performed at Main Lab DEPARTMENT OF PATHOLOGY, [address] [place] [address] Anuj Solis M.D. Director [facility] # [id number] 48 Because ethnic data is not always readily [...] 15-29 5 Kidney failure <15 (or dialysis) 49 SEE RESULT BELOW Name: GABE REED : [address]: Bjorn Blunt MD Acct: [id number] Unit: [id number] AGE: 40 Location: [place] [address] Re07/02/15 Dis: 07/03/15 SEX: F Status: DIS Chan SPEC: [id number] RIGO: 07/02/[address] [facility] [address]: Annetta Hodges MD REQ: [id number] RECD: 07/02/15 STATUS: LIZETH MYRICK DR: [facility] Bre Boyer NP _ SOURCE: URINE SPDESC: ORDERED: Urine Culture Procedure Result Verified Site Urine Culture Final 07/04/15- 1131 ML Organism 1 NORMAL EDELMIRA Elizabeth Count >100,000 (Many) CFU/ML * ML - MAIN LAB ([facility]) . END OF REPORT * ML=Testing performed at Main Lab DEPARTMENT OF PATHOLOGY, [address] [place] [address] Anuj Solis M.D. Director [facility] # [id number] 50 Therapeutic target for the treatment of diabetes Mellitus patients is <7% HBA1C, and in selective patients <6.0%.Please refer to [place] [employer] Diabetic care guidelines for further information. 51 Desirable <150 Borderline high 150-199 High 200-499 Very High >500 52 Desirable <200 Borderline high 200-239 High >239 53 Low <40 Desirable: 40-60 High: >60 54 Desirable: <100 mg/dL Near Optimal: 100-129 mg/dL Borderline High: 130-159 mg/dL High: 160-189 mg/dL Very High: >189 mg/dL 55 RUN DATE: 04/28/[address] [facility] LIVE PAGE 1 RUN TIME: [address] [place] [address] Specimen Inquiry Name: GABE REED : [address]: Della Ferraro NP Acct: [id number] Unit: [id number] AGE: 38 Location: [facility] Re03/31/14 SEX: F Status: REG REF SPEC: [id number] RIGO: 03/31/14-[address]: Della Ferraro NP REQ: [id number] RECD: 04/01/141247 STATUS: COMP _ SOURCE: SKIN SCRAP [facility]: ORDERED: Fungal Cult Yanelis QUERIES: [employer] Number [id number] Procedure Result Verified Site Fungal Cult Skin/Hair/Nails Final 04/28/14- 1228 ML Fungal Culture No Growth of Mycotic Organisms 3 weeks No growth in 4 weeks END OF REPORT * ML=Testing performed at Main Lab DEPARTMENT OF PATHOLOGY, [address] [place] [address] Anuj Solis M.D. Director [facility] # [id number] 56 Because ethnic data is not always readily [...] 15-29 5 Kidney failure <15 (or dialysis) 57 This test detects intact HCG only and is indicated for the early detection of . 58 RUN DATE: 10/22/[address] [facility] LIVE PAGE 1 RUN TIME: [address] [place] [address] Specimen Inquiry Name: GABE REED : [address]: Foster Gonzáles DO Acct: [id number] Unit: [id number] AGE: 38 Location: ED Re10/20/13 SEX: F Status: DEP ER SPEC: [id number] RIGO: 10/20/13-[address] [facility] [address]: Foster Gonzáles DO REQ: [id number] RECD: 10/20/130178 STATUS: LIZETH MYRICK DR: Bre Boyer COMMUNITY HEALTH DIRECTOR _ SOURCE: ENDOCERVIX SPDESC: ORDERED: GC/Chlam RNA [...] ON NEXT PAGE * ML=Testing performed at [facility] Lab DEPARTMENT OF PATHOLOGY, [address] [place] [address] Anuj Solis M.D. Director [facility] Permit #[id number] RUN DATE: 10/22/[address] [facility] LIVE PAGE 2 RUN TIME: [address] [place] [address] Specimen Inquiry Patient: GABE REED [id number] (Continued) Specimen: [id number] Collected: 10/20/13-1114 Received: 10/20/13 (Continued) Procedure Result Verified Site GC (N. gonorrhoeae) RNA Final (continued) 10/22/13- 1230 N. gonorrhoeae are derived from high prevalence populations. Positive results in low prevalence populations should be interpreted carefully with the understanding that the likelihood of a false positive may be higher than a true positive. END OF REPORT * ML=Testing performed at Main Lab DEPARTMENT OF PATHOLOGY, [facility] [facility] [place], [place] [address] Anuj Solis M.D. Director [facility] Permit #[id number] 59 RUN DATE: 10/21/[address] [facility] LIVE PAGE 1 RUN TIME: [address] [facility] [employer] [place], [place] [address] Specimen Inquiry Name: GABE REED : [address]: Foster Gonzáles DO Acct: [id number] Unit: [id number] AGE: 38 Location: ED Re10/20/13 SEX: F Status: DEP ER SPEC: [id number] RIGO: 10/20/13-[address]: Foster Gonzáles DO REQ: [id number] RECD: 10/20/132705 STATUS: LIZETH NUÑEZ : Bre Boyer NP _ SOURCE: VAGINAL SPDESC: ORDERED: Affirm Procedure [...] performed at Main Lab DEPARTMENT OF PATHOLOGY, [address] [place] [address] Anuj Solis M.D. Director [facility] Permit #[id number] Procedures Description No Information Available Encounters Type Date Location Provider Dx Diagnosis Office Visit 07/11/2018 Main Office Jono Sheffield F31.81 Bipolar II disorder 10:30a F90.0 Attn-defct hyperactivity disorder, predom inattentive type Z23 Encounter for immunization Office Visit 06/15/2018 2:30p Main Office Jono Sheffield F31.81 Bipolar II MD disorder F90.0 Attn-defct hyperactivity disorder, predom inattentive type Office Visit 11/17/2015 2:15p Main Office Bre Silveira R03.0 Elevated Storm, 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 blood-pressure reading, w/o diagnosis of htn Office Visit 07/04/2015 9:30a Main Office John Mike M.D. 592.0 Calculus Of Kidney Office Visit 06/08/2015 11:30a Main Office John Mike M.D. 462 Pharyngitis Acute Office Visit 04/28/2015 11:30a Main Office Bre Silveira 278.00 Obesity Unspec Storm, 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 Office Visit 03/31/2014 4:45p Main Office Della Ferraro, 782.9 Skin & Integumentary 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 Tissue Other Symptoms Office Visit 12/12/2013 8:30a Main Office Leny Lozada 780.4 Dizziness & Fuentes Hester Giddiness Office Visit 06/27/2013 12:00p Main Office Jennifer Stover 112.0 Candidiasis Mouth Fuentes Cowan 782.1 Rash & Other Nonspec Skin Eruption Office Visit 05/13/2013 1:30p Main Office Bre Silveira V70.0 Examination General Storm, 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 Medical Routine AT Health Care Facility Plan of Treatment Future Appointment(s):09/07/2018 11:00 am - Jono Sheffield MD at Main [facility]608/10/2018 - Jono Sheffield MDF31.81 Bipolar II disorderComments:Will plan to continue the medications she has been taking. her symptoms have been stableFollow up:1 sqmbcF16.0 Attention-deficit hyperactivity disorder, predominantly inat
[2018-09-03 12:26] LABS: ABS Basophils 0.1 10^3/ul (0-0.2); ABS Eosinophils 0.2 10^3/ul (0-0.6); ABS Lymphocytes 2.1 10^3/ul (1.0-4.8); ABS Monocytes 0.7 10^3/ul (0-0.8); ABS Neutrophils 3.1 10^3/ul (1.5-7.7); ABS Nucleated RBC 0 10^3/ul; Eosinophil % 3.7 % (0-6); Hematocrit 34 % (35-47); Hemoglobin 11.7 g/dl (12.0-16.0); Lymphocyte % 33.7 % (25-47); Mean Corpuscular HGB Conc 34 g/dl (31-36); Mean Corpuscular Hemoglobin 31 pg (27-31); Mean Corpuscular Volume 90 fL (80-97); Mean Platelet Volume 7.4 um3 (7.4-10.4); Nucleated Red Blood Cells % 0.2; Platelet Count 263 10^3/ul (150-450); Red Blood Count 3.81 10^6/ul (4.00-5.40); Red Cell Distribution Width 13 % (10.5-15); White Blood Count 6.1 10^3/ul (3.5-10.8)
[2018-09-03 12:54] LABS: EGFR Non-African American 112.3 (>60)
[2018-09-03 16:11] LABS: Urine Appearance Cloudy; Urine Blood 3+ (Negative); Urine Color Red; Urine Ketones Negative (Negative); Urine Protein 2+(100 mg/dL) (Negative); Urine Red Blood Cell 3+(>10/hpf) (Absent); Urine Specific Gravity 1.028 (1.010-1.030); Urine Urobilinogen Negative (Negative); Urine White Blood Cell 2+(11-20/hpf) (Absent)
--- NOTE | 2018-09-03 16:50 | ED ---
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 Associated sx: mild fever , bloating, bilat pedal edema, constipated, BRANES,melena. Denies v/d, neck pain, sore throat. Pt does eat by mouth. Surgical history includes gastric bypass in 10/2015. Pt had a hernia requiring surgery in Nov 2017. Pt has had multiple surgeries. Pt was seen in ED on 07/30/18 and released on 08/03/18. She got the flu shot this year. Non-smoker. 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 neg: neck pain, sore throat.. Negative: Vomiting, Diarrhea Allergies/Adverse Reactions: Allergies Allergy/AdvReac Type Severity Reaction Status Date / Time cephalexin Allergy Unknown Verified 09/03/18 11:36 Reaction Details penicillin G Allergy Anaphylatic Verified 09/03/18 11:36 Shock Penicillins Allergy Unknown Verified 09/03/18 11:36 Reaction Details Home Medications: Home Medications Dextroamphetamine/Amphetamine [Dextroamp-Amphetamin 20 mg Tab] 20 ml PO DAILY MDD 2 09/03/18 [History Confirmed 09/03/18] PMH/Surg Hx/FS Hx/Imm Hx Previously Healthy: No Endocrine/Hematology History: Denies: Hx Anticoagulant Therapy, Hx Blood Disorders, Hx Diabetes Cardiovascular History: Denies: Hx Hypertension, Hx Pacemaker/ICD Respiratory History: Denies: Hx Asthma GI History: Reports: Hx Hiatal Hernia, Hx Obstructive Bowel, Other GI Disorders - TREATED FOR H PYLORI-09/2015 Denies: Hx Gastroesophageal Reflux Disease History: Reports: Hx Kidney Stones Denies: Hx Dialysis, Hx Renal Disease Sensory History: Reports: Hx Contacts or Glasses Denies: Hx Hearing Aid Opthamlomology History: Reports: Hx Contacts or Glasses Neurological History: Denies: Other Neuro Impairments/Disorders Psychiatric History: Reports: Hx Anxiety, Hx Attention Deficit Hyperactivity Disorder, Hx Depression, Hx Bipolar Disorder, Other Psychiatric Issues/ Disorders - bipolar Denies: Hx Panic Disorder - Surgical History Surgery Procedure, Year, and Place: GASTRIC BYPASS 10/28/15, TUBES TIED, JOHN, HERNIA REPAIR, laporotomy. Hernia repair and SBO 12/02/17, 12/05/17, 02/06/18 Hx Anesthesia Reactions: No - Immunization History Date of Tetanus Vaccine: UTD per pt Infectious Disease History: No Infectious Disease History: Denies: Traveled Outside the [place] in Last 30 Days - Family History Known Family History: Positive: Hypertension Negative: Cardiac Disease - Social History Occupation: Employed Full-time Lives: With Family Alcohol Use: None Hx Substance Use: No Substance Use Type: Reports: None Hx Tobacco Use: No Smoking Status (MU): Never Smoked Tobacco Have You Smoked in the Last Year: No Review of Systems Positive: Fever Negative: Blurred Vision Negative: Sore Throat Cardiovascular: Negative Respiratory: Negative Positive: Abdominal Pain, Other - pos: bloating, melena . Negative: Vomiting, Diarrhea Positive: Edema - bilat pedal edema. Negative: Arthralgia - neck pain Skin: Negative Positive: Headache All Other Systems Reviewed And Are Negative: No Physical Exam - Summary Physical Exam Summary: Appearance: Alert, conversive, nontoxic appearing Skin: Warm, dry, no mottling, no rashes, no contusions HEENT: EOMI, PERRL, slightly dry mucous membranes Neck: No masses on the neck, supple Respiratory: Clear to auscultation, breath sounds present, no rales, no rhonchi , no wheezes Cardiovascular: RRR, pulses are symmetrical in both lower and upper extremities Abdomen: Soft, very mild tenderness to lower abd, PEG tube in place Bowel Sounds: Present Musculoskeletal: No CVA tenderness, no obvious deformity, moving all extremities in a grossly normal manner. Mild pedel edema. Neurological: A&Ox3, CN II-XII Intact, moving all extremities symmetrically Psychiatric: Slightly anxious. Triage Information Reviewed: Yes Vital Signs On Initial Exam: Initial Vitals Temp Pulse Resp BP Pulse Ox 98.1 F 82 16 115/73 96 09/03/18 11:25 09/03/18 11:25 09/03/18 11:25 09/03/18 11:25 09/03/18 11:25 Vital Signs Reviewed: Yes Diagnostics - Vital Signs Vital Signs Temp Pulse Resp BP Pulse Ox 09/03/18 15:57 99.5 F 80 20 150/40 09/03/18 13:45 99.4 F 94 22 117/72 100 09/03/18 11:25 98.1 F 82 16 115/73 96 - Laboratory Lab Results: Lab Results 09/03/18 09/03/18 09/03/18 Range/Units 11:56 12:11 12:11 WBC 6.1 (3.5-10.8) 10^3/ul RBC 3.81 L (4.00-5.40) 10^6/ul Hgb 11.7 L (12.0-16.0) g/dl Hct 34 L (35-47) % MCV 90 (80-97) fL MCH 31 (27-31) pg MCHC 34 (31-36) g/dl RDW 13 (10.5-15) % Plt Count 263 (150-450) 10^3/ul MPV 7.4 (7.4-10.4) um3 Neut % (Auto) 50.3 (38-83) % Lymph % (Auto) 33.7 (25-47) % [place] % (Auto) 11.1 H (0-7) % Eos % (Auto) 3.7 (0-6) % Baso % (Auto) 1.2 (0-2) % Absolute Neuts (auto) 3.1 (1.5-7.7) 10^3/ul Absolute Lymphs (auto) 2.1 (1.0-4.8) 10^3/ul Absolute Monos (auto) 0.7 (0-0.8) 10^3/ul Absolute Eos (auto) 0.2 (0-0.6) 10^3/ul Absolute Basos (auto) 0.1 (0-0.2) 10^3/ul Absolute Nucleated RBC 0 10^3/ul Nucleated RBC % 0.2 Sodium 139 (135-145) mmol/L Potassium 3.7 (3.5-5.0) mmol/L Chloride 109 (101-111) mmol/L Carbon Dioxide 26 (22-32) mmol/L Anion Gap 4 (2-11) mmol/L BUN 11 (6-24) mg/dL Creatinine 0.59 (0.51-0.95) mg/dL Est GFR ( Amer) 135.9 (>60) Est GFR (Non-Af Amer) 112.3 (>60) BUN/Creatinine Ratio 18.6 (8-20) Glucose 90 (70-100) mg/dL Lactic Acid (0.5-2.0) mmol/L Calcium 8.5 L (8.6-10.3) mg/dL Total Bilirubin 0.40 (0.2-1.0) mg/dL AST 12 L (13-39) U/L ALT 11 (7-52) U/L Alkaline Phosphatase 114 H (34-104) U/L C-Reactive Protein < 1.00 (<8.01) mg/L Total Protein 6.2 L (6.4-8.9) g/dL Albumin 3.7 (3.2-5.2) g/dL Globulin 2.5 (2-4) g/dL Albumin/Globulin Ratio 1.5 (1-3) Lipase 28 (11.0-82.0) U/L Beta HCG, Quant < 0.60 mIU/mL Urine Color Red A Urine Appearance Cloudy Urine pH 5.0 (5-9) Ur Specific [place] 1.028 (1.010-1.030) Urine Protein 2+(100 mg/dl) A (Negative) Urine Ketones Negative (Negative) Urine Blood 3+ A (Negative) Urine Nitrate Negative (Negative) Urine Bilirubin Negative (Negative) Urine Urobilinogen Negative (Negative) Ur Leukocyte Esterase Trace A (Negative) Urine WBC (Auto) 2+(11-20/hpf) A (Absent) Urine RBC (Auto) 3+(>10/hpf) A (Absent) Calcium Oxalate Crystal Present A (Absent) Urine Bacteria Absent (Absent) Urine Glucose Negative (Negative) 09/03/18 Range/Units 12:11 WBC (3.5-10.8) 10^3/ul RBC (4.00-5.40) 10^6/ul Hgb (12.0-16.0) g/dl Hct (35-47) % MCV (80-97) fL MCH (27-31) pg MCHC (31-36) g/dl RDW (10.5-15) % Plt Count (150-450) 10^3/ul MPV (7.4-10.4) um3 Neut % (Auto) (38-83) % Lymph % (Auto) (25-47) % [place] % (Auto) (0-7) % Eos % (Auto) (0-6) % Baso % (Auto) (0-2) % Absolute Neuts (auto) (1.5-7.7) 10^3/ul Absolute Lymphs (auto) (1.0-4.8) 10^3/ul Absolute Monos (auto) (0-0.8) 10^3/ul Absolute Eos (auto) (0-0.6) 10^3/ul Absolute Basos (auto) (0-0.2) 10^3/ul Absolute Nucleated RBC 10^3/ul Nucleated RBC % Sodium (135-145) mmol/L Potassium (3.5-5.0) mmol/L Chloride (101-111) mmol/L Carbon Dioxide (22-32) mmol/L Anion Gap (2-11) mmol/L BUN (6-24) mg/dL Creatinine (0.51-0.95) mg/dL Est GFR ( Amer) (>60) Est GFR (Non-Af Amer) (>60) BUN/Creatinine Ratio (8-20) Glucose (70-100) mg/dL Lactic Acid 0.5 (0.5-2.0) mmol/L Calcium (8.6-10.3) mg/dL Total Bilirubin (0.2-1.0) mg/dL AST (13-39) U/L ALT (7-52) U/L Alkaline Phosphatase (34-104) U/L C-Reactive Protein (<8.01) mg/L Total Protein (6.4-8.9) g/dL Albumin (3.2-5.2) g/dL Globulin (2-4) g/dL Albumin/Globulin Ratio (1-3) Lipase (11.0-82.0) U/L Beta HCG, Quant mIU/mL Urine Color Urine Appearance Urine pH (5-9) Ur Specific [place] (1.010-1.030) Urine Protein (Negative) Urine Ketones (Negative) Urine Blood (Negative) Urine Nitrate (Negative) Urine Bilirubin (Negative) Urine Urobilinogen (Negative) Ur Leukocyte Esterase (Negative) Urine WBC (Auto) (Absent) Urine RBC (Auto) (Absent) Calcium Oxalate Crystal (Absent) Urine Bacteria (Absent) Urine Glucose (Negative) Result Diagrams: 09/03/18 12:11 09/03/18 12:11 Lab Statement: Any lab studies that have been ordered have been reviewed, and results considered in the medical decision making process. Abdominal Pain Fem Course/Dx - Course Course Of Treatment: Dr. Whitley, surgery, wants to admit patient to floor. - Diagnoses Provider Diagnoses: Dehydration Discharge - Sign-Out/Discharge Documenting (check all that apply): Patient Departure - Discharge Plan Condition: Stable Disposition: ADMITTED TO [facility] - Billing Disposition and Condition Condition: STABLE Disposition: Admitted to [facility] - Attestation Statements Document Initiated by Scribe: Yes Documenting Scribe: Kary Yanes Provider For Whom Carlosibsal is Documenting (Include Credential): Dr. Cathy Groves MD Scribe Attestation: Kary Zuniga, scribed for Dr. Cathy Groves MD on 09/03/18 at 2152. Scribe Documentation Reviewed: Yes Provider Attestation: The documentation as recorded by the Kary vergara accurately reflects the service I personally performed and the decisions made by me, Dr. Cathy Groves MD
[2018-09-03] MEDS ORDERED: Ondansetron ODT TAB* 4 MG SL PRN (17:16)
[2018-09-03] MEDS: HYDROmorphone INJ1* 1 MG/ML SYRINGE IV SLOW PU PRN ×2 (17:40→21:54)
--- NOTE | 2018-09-03 18:02 | RAD ---
Indication: Abdominal pain. Flat plate of the abdomen demonstrates no free air. No dilated loops of bowel are noted. The colon is filled with stool. IMPRESSION: No free air or obstruction is noted.
[2018-09-03] MEDS: D5W 1/2 NS KCl 20 Meq 1000 ML* 1,000 ML IV SCH (18:14)
[2018-09-03] MEDS: Ketorolac INJ* 30 MG/ML 1 ML VIAL IV PUSH PRN (19:32)
[2018-09-03] MEDS: Sodium Phosphate ADULT ENEMA* 118 ml bottle PR SCH (20:15)
[2018-09-03] MEDS: Polyethylene Glycol 3350* 17 GM PACKET PO SCH (20:15)
[2018-09-04] MEDS: Ketorolac INJ* 30 MG/ML 1 ML VIAL IV PUSH PRN ×3 (02:22→16:04)
[2018-09-04] MEDS: D5W 1/2 NS KCl 20 Meq 1000 ML* 1,000 ML IV SCH ×2 (02:25→18:29)
[2018-09-04] MEDS: HYDROmorphone INJ1* 1 MG/ML SYRINGE IV SLOW PU PRN ×3 (05:17→18:25)
[2018-09-04] MEDS: Metoclopramide IV* 5 MG/ML 2 ML VIAL IV PRN ×2 (09:28→16:04)
[2018-09-04] MEDS: Polyethylene Glycol 3350* 17 GM PACKET PO SCH ×2 (09:34→21:46)
[2018-09-04] MEDS: Sodium Phosphate ADULT ENEMA* 118 ml bottle PR SCH (12:03)
[2018-09-04] MEDS: Scopolamine 1.5 mg* PATCH TRANSDERM SCH (12:03)
[2018-09-04] MEDS ORDERED: busPIRone TAB* 10 MG PO PRN (16:44)
--- NOTE | 2018-09-04 16:44 | PN ---
Progress Note - Progress Note Date of Service: 09/04/18 Note: S: Patient seen this a.m. ~ 0830. Still having pain. Had small BM after enema last night. Nausea, but would like to try some soup. Passing flatus this a.m. ( though was not yesterday). O: Vital Signs - 8 hr 09/04/18 09/04/18 09/04/18 09:38 11:34 13:31 Temperature 99.4 F Pulse Rate 71 Respiratory 16 16 16 Rate Blood Pressure 115/48 (mmHg) O2 Sat by Pulse 98 Oximetry 09/04/18 15:45 Temperature 98.1 F Pulse Rate 61 Respiratory 18 Rate Blood Pressure 100/56 (mmHg) O2 Sat by Pulse 96 Oximetry Intake and Output Last 24 Hours 09/02/18 09/03/18 09/04/18 09/05/18 06:59 06:59 06:59 06:59 Intake Total 1307 1130 Output Total 200 900 Balance 1107 230 Weight 119 lb Intake: IV Fluids 947 980 D5W 1/2 NS 20 meq KCL 947 980 Oral 360 150 Output: Urine 200 900 Other: Estimated Void Small # Bowel Movements 0 # Voids 1 Gen: NAD Heart: reg Lungs: clear Abd: +BS; mildly distended; soft; diffuse moderate tenderness to palp; gastrostomy valve in place LUQ No labs today Name: GABE REED : [address]: Alejandro Whitley MD Acct: [id number] Unit: [id number] AGE: 43 Location: [place] [address] Re09/03/18 SEX: F Status: ADM Chan SPEC: [id number] RIGO: 09/03/18-[address]: Genesis BRAN REQ: [id number] RECD: [id number]/03/[id number] STATUS: RES ELEN DR: [facility] _ Bre Boyer NP SOURCE: URINE SPDESC: ORDERED: Urine Culture Procedure Result Reported Site Urine Culture Preliminary 09/04/18- 1436 ML Organism 1 STREP DYSGALAC (STREP EQUISIM) [place] Count 25-50,000 (Moderate) CFU/ML Organism 2 ESCHERICHIA COLI [place] Count 10-25,000 (Moderate) CFU/ML Organism 3 NORMAL EDELMIRA [place] Count 25-50,000 (Moderate) CFU/ML A: abd pain, persistent (colonic ileus? AXR yesterday was normal other than stool-filled colon) P: cont bowel regimen; consider advancing diet; reconsult GI? Dr. Whitley to see. Resume usual meds.
[2018-09-04] MEDS: cloNIDine TAB* 0.1 MG PO SCH (21:46)
[2018-09-04] MEDS: QUEtiapine TAB* 300 MG PO SCH (21:46)
[2018-09-04] MEDS: lamoTRIgine TAB(*) 100 MG PO SCH (21:46)
[2018-09-04] MEDS: Amphetamine MIXED SALT TAB* 10 MG TAB PO SCH (21:50)
[2018-09-04] MEDS: ARIPiprazole TAB* 2 MG PO SCH (21:50)
--- NOTE | 2018-09-04 21:58 | HP ---
AMENDED REPORT NOW INCLUDES COSIGNER DESIGNATION CC: Bre Boyer NP, [facility] * ADMISSION HISTORY AND PHYSICAL: DATE OF ADMISSION: 09/03/18 ATTENDING PHYSICIAN: Dr. Alejandro Whitley.* (DICTATED BY YINA HORTON) CHIEF COMPLAINT: Abdominal pain. HISTORY OF PRESENT ILLNESS: This is a 43-year-old female with multiple similar previous admissions for abdominal pain. She states that pain began in her left flank and radiated around to the front of the abdomen. It has been steady and at times she states it feels like her stomach is turning inside out. She states that it is the same that she had previously on other admissions. She states that her last bowel movement was 5 days ago. She had been passing flatus , but not today. She is nauseated though denies vomiting. She admits to some slight dysuria, but no increased frequency. She admits to low grade fever. She does have some hematuria because of her current menses. She states that her bowel movements are always loose and never formed even dating back since her initial bypass surgery. She underwent Cm-en-Y gastric bypass in 2014, but has required at least two additional surgeries for an internal hernia and then for obstruction requiring a laparotomy, and placement of a gastrostomy tube in the gastric remnant. This has remained in place as a ELROY-HERNÁNDEZ valve, but has not been used of late. PAST MEDICAL HISTORY: History of morbid obesity, bipolar disorder, ADHD, history of kidney stones. PAST SURGICAL HISTORY: Previous surgeries, as noted above, also remote cholecystectomy. CURRENT MEDICATIONS: 1. Lamictal 150 mg b.i.d. 2. Clonidine 0.1 mg b.i.d. 3. Buspirone 10 mg once daily p.r.n. anxiety (does not use daily). 4. Seroquel 150 mg q.h.s. 5. Multivitamins daily. 6. Calcium carbonate, dose not specified. 7. Adderall 20 mg b.i.d. 8. Abilify 2 mg daily. ALLERGIES: CEPHALEXIN and PENICILLIN (according to her mother, she had life threatening reaction). FAMILY HISTORY: Unchanged. SOCIAL HISTORY: The patient lives with her mother who is present with her. The patient is not presently employed. She does not smoke or drink any alcohol. REVIEW OF SYSTEMS: General: No recent constitutional symptoms other than described in the HPI. Her weight has remained stable. HEENT: No problems reported. Cardiovascular: No chest pain, palpitations, or hypertension. Respiratory: No history of asthma, chronic cough or shortness of breath. GI: As above. : As above. COMPLIANCE REVIEW OFFICER: I did not enquire. Musculoskeletal: No problems reported. Neuro/Psych: As above. No additions. PHYSICAL EXAMINATION GENERAL: Well-nourished, anxious-appearing female, but in no acute distress. VITAL SIGNS: Height 5 feet, weight 119 pounds, temperature 98.1, blood pressure 115/73, pulse 82, respirations 16, room air saturation 96%. HEENT: Pupils equal, round, and reactive. EOMs intact. No conjunctival pallor. Oropharynx, mucous membranes moist. NECK: No lymphadenopathy or thyromegaly. No masses. LUNGS: Clear to auscultation. No wheezes. HEART: Regular rate and rhythm. No murmur noted. BREASTS: Not examined. ABDOMEN: Well healed surgical scars including midline laparotomy incision. There is a ELROY-HERNÁNDEZ gastrostomy valve present in the left upper quadrant. Abdomen appear mildly distended. Bowel sounds are present. Abdomen is soft, but with diffuse moderate tenderness throughout and without localization. No palpable masses or organomegaly. No peritoneal signs. GENITALIA: Not done. RECTAL: Not done. BACK: No spinous process or CVA tenderness. EXTREMITIES: 1+ edema bilaterally. No calf tenderness. NEUROLOGICAL: Grossly intact. SKIN: Warm and dry. No suspicious rashes or lesions noted. LABORATORY DATA: Labs noted and essentially normal. Abdominal x-ray noted as being essentially normal with stool filled colon. IMPRESSION: Abdominal pain of undetermined etiology, possible colonic ileus. PLAN: Admission for IV fluids, pain control, continue bowel regimen. YINA HORTON [id number]/[facility] #: [id number] MTDD
[2018-09-05] MEDS: D5W 1/2 NS KCl 20 Meq 1000 ML* 1,000 ML IV SCH ×3 (02:30→22:49)
[2018-09-05] MEDS: Ketorolac INJ* 30 MG/ML 1 ML VIAL IV PUSH PRN ×2 (08:25→15:07)
[2018-09-05] MEDS: lamoTRIgine TAB(*) 100 MG PO SCH ×2 (08:27→21:21)
[2018-09-05] MEDS: Amphetamine MIXED SALT TAB* 10 MG TAB PO SCH ×2 (08:27→14:36)
[2018-09-05] MEDS: ARIPiprazole TAB* 2 MG PO SCH (08:28)
[2018-09-05] MEDS: cloNIDine TAB* 0.1 MG PO SCH ×2 (08:28→21:21)
[2018-09-05] MEDS: Polyethylene Glycol 3350* 17 GM PACKET PO SCH ×2 (08:28→21:21)
[2018-09-05] MEDS: Sodium Phosphate ADULT ENEMA* 118 ml bottle PR SCH (08:29)
[2018-09-05] MEDS: HYDROmorphone INJ1* 1 MG/ML SYRINGE IV SLOW PU PRN ×3 (11:44→20:16)
--- NOTE | 2018-09-05 18:43 | PN ---
Progress Note - Progress Note Date of Service: 09/05/18 SOAP: Subjective: Pt seen and examined. Feeling letle better. No BM yet. Less distended. Tolerating diet abdo pain intermittent Objective: Temp Pulse Resp BP Pulse Ox 98.0 F 68 18 124/50 99 09/05/18 15:39 09/05/18 15:39 09/05/18 16:20 09/05/18 15:39 09/05/18 15:39 Intake & Output 09/05/18 09/05/18 09/05/18 06:59 14:59 22:59 Intake Total 1055 Output Total 1300 1700 1000 Balance -245 -1700 -1000 a and o x3 abdo: soft/ ND/ tender on deep palpation; no rebound gatrostomy in place Assessment: ileus vs colonic ileus possibly due to malnutrition 2ary to gastric bypass Plan: G tube feeds advance diet pian control Bowel regimen labs in am
[2018-09-06] MEDS: QUEtiapine TAB* 300 MG PO SCH ×2 (00:14→22:36)
[2018-09-06] MEDS: Ketorolac INJ* 30 MG/ML 1 ML VIAL IV PUSH PRN ×3 (00:21→22:36)
[2018-09-06] MEDS: HYDROmorphone INJ1* 1 MG/ML SYRINGE IV SLOW PU PRN (04:47)
[2018-09-06] MEDS: D5W 1/2 NS KCl 20 Meq 1000 ML* 1,000 ML IV SCH ×2 (07:31→20:21)
[2018-09-06] MEDS: cloNIDine TAB* 0.1 MG PO SCH ×2 (09:54→20:20)
[2018-09-06] MEDS: ARIPiprazole TAB* 2 MG PO SCH (09:54)
[2018-09-06] MEDS: Amphetamine MIXED SALT TAB* 10 MG TAB PO SCH ×2 (09:54→14:23)
[2018-09-06] MEDS: lamoTRIgine TAB(*) 100 MG PO SCH ×2 (09:54→20:20)
[2018-09-06] MEDS: Polyethylene Glycol 3350* 17 GM PACKET PO SCH (09:56)
[2018-09-06] MEDS: Sodium Phosphate ADULT ENEMA* 118 ml bottle PR SCH (10:12)
[2018-09-06] MEDS ORDERED: Magnesium CITRATE* 300 ML BTL PO ONE (11:41)
--- NOTE | 2018-09-06 11:46 | PN ---
Progress Note - Progress Note Date of Service: 09/06/18 SOAP: Subjective: Pt seen and examined. Still with abdo pain. No BM yet. appetite improving Objective: Temp Pulse Resp BP Pulse Ox 97.7 F 66 16 94/56 98 09/06/18 07:32 09/06/18 07:32 09/06/18 07:41 09/06/18 07:32 09/06/18 07:32 a and ox3, nad abdo: soft/ mild distension/ minimal tenderness, no rebound gatrostomy site intact no swelling at b/l LE micro: esbl labs noted Assessment: constip[ation, abdo pain. UTi Plan: ID consult magnesium citrate no CT scan for now, no evidence of surgical abdomen. I don't think pt would benefit from abdominal surgery. minimize pain meds
--- NOTE | 2018-09-06 12:44 | RAD ---
Indication: Recurrent urinary tract infections. Comparison: July 28, 2018 CT and July 31, 2018 ultrasound. Technique: Ultrasound kidneys and urinary bladder. Report: 10.6 x 4.2 x 5.3 cm RIGHT kidney demonstrates normal cortical thickness and echogenicity. No conspicuous stones or hydronephrosis. Negative for focal renal lesions. 10.2 x 5.8 x 4.7 cm LEFT kidney demonstrates normal cortical thickness and echogenicity. No conspicuous stones. Negative for hydronephrosis or focal renal lesions. Prevoid urinary bladder volume estimated at 397 mL. 2 mm bladder wall thickness. No focal bladder lesions evident. Symmetric bilateral ureteral jets documented. Post void residual volume estimated at 19 mL. The uterus appears enlarged and demonstrates a normal 4 mm endometrial thickness. Posterior lower uterine segment/cervical fibroid measures 3.1 x 2.6 x 3.6 cm is grossly unchanged compared with an ultrasound exam from October 20, 2013. Negative for free pelvic fluid. IMPRESSION: #. No conspicuous nephrolithiasis or hydronephrosis. Previous stone at level of the lower pole calyx of the LEFT kidney on the July 28, 2018 CT is not conspicuous. #. Negative ultrasound of the urinary bladder. #. No significant change in posterior lower uterine segment/cervical fibroid.
--- NOTE | 2018-09-06 13:16 | CONS ---
CONSULTATION REPORT: DATE OF CONSULT: 09/06/18 REQUESTING PHYSICIAN: Dr. Whitley. CONSULTING SERVICE: Infectious disease REASON FOR CONSULT: Bacteruria. IMPRESSION: 1. Admitted with diffuse abdominal pain, found to be constipated. She had a urinalysis that showed blood and trace leukocyte esterase with some white cells. There were some calcium oxalate crystals present. She has no urinary symptoms including no dysuria or frequency. A urine culture grew 20,000 colonies of E. Coli, 30,000 colonies of Strep dysgalactiae and other amie. Taking together, I do not think she has urinary tract infection. As to why she continues to have bacteruria, she does have a history of nephrolithiasis and some symptoms that could suggest incomplete emptying. 2. Allergy to CEPHALOSPORIN and PENICILLIN. 3. Status post Cm-en-Y gastric bypass 2014 complicated by internal hernia and obstruction and a gastrostomy tube placement. RECOMMENDATIONS: We will continue to observe off of the antibiotics and obtain a postvoid residual bladder scan as well as ultrasound of the kidneys, ureters and bladder. HISTORY OF PRESENT ILLNESS: This is a 43-year-old woman who had a Cm-en-Y surgery in 2014 and has had a number of admissions subsequently with internal hernia and an obstruction, PEG tube placement and abdominal pain that often is diffuse. This time, it is associated with constipation. She has had more on the side of diarrhea in the past. Because of her abdominal symptoms, she had a urinalysis obtained with results as above as well as a urine culture. 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 She has had no dysuria or frequency. She had a little bit of left flank pain which is where her pain often begins, but now it is mostly mid abdominal. She had a low grade fever here and none at home. She has a history of nephrolithiasis, history of lithotripsy a number of times in the past, the last was 2 or 3 years ago. She had an abdominal x- ray here that showed no free air or obstruction. She has had no fevers since she has been here. PAST MEDICAL HISTORY: 1. Morbid obesity, status post Cm-en-Y gastric bypass. 2. Exploratory laparotomy for internal hernia and obstruction. 3. Status post G tube placement. 4. Bipolar disorder. 5. ADHD. 6. Nephrolithiasis, treated with lithotripsy. 7. Status post cholecystectomy. MEDICATIONS: 1. Amphetamine twice a day. 2. Aripiprazole. 3. BuSpar. 4. Clonidine. 5. Lamictal. 6. Polyethylene glycol. 7. Seroquel. 8. Scopolamine patch. ALLERGIES: CEPHALEXIN and PENICILLIN cause severe reaction per her mom. FAMILY HISTORY: No recurrent infections. SOCIAL HISTORY: She lives with her mom. She is a nonsmoker, no injection drugs. REVIEW OF SYSTEMS: All negative for 14-point review of systems except as noted above in the history of present illness. PHYSICAL EXAM: Vital Signs: Temperature of 36.5, heart rate of 66, respiratory rate 16, blood pressure 94/56, oxygen saturation 98% on room air. In general, she is awake, not in distress. Neurologic: She is oriented x3, follows all commands. HEENT: There is no conjunctival hemorrhage. Oropharynx without lesions. Neck is supple without mass. Heart is regular rate and rhythm without murmurs, rubs or gallops. Lungs are clear to auscultation bilaterally. Abdomen: Soft, nondistended. There is tenderness to palpation throughout. There is no flank tenderness to palpation or suprapubic tenderness. Skin: There is no rash or splinter hemorrhage. Musculoskeletal: There is no spine tenderness to palpation. DIAGNOSTIC STUDIES/LAB DATA: White blood cell count 6, hemoglobin 11, platelets 263, creatinine 0.6, CRP less than 1. HCG less than 0.6. Please see impression and recommendations as outlined above, which I discussed with YINA Abrams. Thank you for asking me to see Ms. Verma in consultation. [id number]/[facility] #: [id number] [facility]ITAL[facility]ai
[2018-09-06] MEDS: oxyCODONE/Acetamin 5/325 MG* TAB PO PRN ×2 (14:23→19:10)
[2018-09-07] MEDS: oxyCODONE/Acetamin 5/325 MG* TAB PO PRN ×6 (00:31→22:24)
[2018-09-07] MEDS: Ketorolac INJ* 30 MG/ML 1 ML VIAL IV PUSH PRN ×3 (05:19→18:22)
[2018-09-07] MEDS: D5W 1/2 NS KCl 20 Meq 1000 ML* 1,000 ML IV SCH (05:21)
[2018-09-07] MEDS: Sodium Phosphate ADULT ENEMA* 118 ml bottle PR SCH ×2 (08:33→11:20)
[2018-09-07] MEDS: Amphetamine MIXED SALT TAB* 10 MG TAB PO SCH ×2 (08:34→13:47)
[2018-09-07] MEDS: cloNIDine TAB* 0.1 MG PO SCH ×2 (08:34→22:25)
[2018-09-07] MEDS: ARIPiprazole TAB* 2 MG PO SCH (08:34)
[2018-09-07] MEDS: lamoTRIgine TAB(*) 100 MG PO SCH ×2 (08:35→22:23)
[2018-09-07] MEDS: Scopolamine 1.5 mg* PATCH TRANSDERM SCH (08:37)
[2018-09-07] MEDS ORDERED: Iohexol 300* (CONTRAST) 10 ML SDV IV ONE (15:28)
--- NOTE | 2018-09-07 16:07 | RAD ---
INDICATION: Abdominal pain. COMPARISON: Comparison is made with a prior study from July 28, 2018. TECHNIQUE: A CT scan of the abdomen and pelvis was performed with intravenous and with oral contrast following intravenous injection of 72 ml of Omnipaque 300 nonionic contrast. Contiguous axial sections were obtained from the lung bases through the symphysis pubis. Images were reconstructed in the coronal and sagittal planes. FINDINGS: LUNG BASES: There is mild dependent bilateral lower lobe subsegmental atelectasis. No pleural effusion is present. LIVER: The liver is mildly enlarged. No significant focal abnormality is seen. GALLBLADDER: The patient is status post cholecystectomy. BILE DUCTS: No intra or extrahepatic ductal distention is seen. SPLEEN: The spleen is normal in size without significant focal abnormality. PANCREAS: The pancreas is normal in size. No ductal distention or calcifications are seen. ADRENAL GLANDS: The adrenal glands are normal in size. KIDNEYS: The kidneys are normal in size. No hydronephrosis is seen. There is a nonobstructing 1.3 x 0.8 cm calculus in the lower pole of the left kidney. No significant focal renal abnormality is seen. AORTA: The aorta is normal in caliber and demonstrates homogeneous contrast opacification without significant plaque. LYMPH NODES: No significantly enlarged lymph nodes are seen. BOWEL: The patient is status post Cm-en-Y gastric bypass surgery. The excluded stomach is distended with fluid. There is a percutaneous gastrostomy tube present. There is a dilated loop of bowel in the anterior upper abdomen in the midline with an air-fluid level which likely represents distention of the jejunojejunostomy. The small bowel and colon otherwise appear nondistended. The appendix is not well visualized. There is a moderate to large amount retained stool throughout the colon. PELVIC ORGANS: No bladder wall thickening is seen. The uterus is mildly enlarged and anteverted in position. PERITONEUM: No free intraperitoneal air or fluid is seen. BONES: No significant focal osseous abnormality is seen. IMPRESSION: 1. DILATED LOOP OF BOWEL WITHIN AIR-FLUID LEVEL IN THE UPPER ABDOMEN MIDLINE LIKELY REPRESENTING DISTENTION OF THE JEJUNOJEJUNOSTOMY. 2. MILD FLUID DISTENTION OF THE EXCLUDED STOMACH. THERE IS A PERCUTANEOUS GASTROSTOMY TUBE PRESENT. 3. NONOBSTRUCTING LEFT RENAL CALCULUS.
[2018-09-08] MEDS: Ketorolac INJ* 30 MG/ML 1 ML VIAL IV PUSH PRN ×2 (00:26→08:23)
[2018-09-08] MEDS: QUEtiapine TAB* 300 MG PO SCH ×2 (00:29→21:04)
[2018-09-08] MEDS: oxyCODONE/Acetamin 5/325 MG* TAB PO PRN ×5 (04:05→21:02)
[2018-09-08] MEDS: ARIPiprazole TAB* 2 MG PO SCH (08:22)
[2018-09-08] MEDS: lamoTRIgine TAB(*) 100 MG PO SCH ×2 (08:23→21:03)
[2018-09-08] MEDS: cloNIDine TAB* 0.1 MG PO SCH ×2 (08:23→21:02)
[2018-09-08] MEDS: Amphetamine MIXED SALT TAB* 10 MG TAB PO SCH ×2 (08:23→12:23)
--- NOTE | 2018-09-08 10:23 | PN ---
Progress Note - Progress Note Date of Service: 09/08/18 SOAP: Subjective: She c/o abdominal pain diffusely for which she is taking Percocet or IV meds every 4h. She has no flatus or BM. She notes she feels worse when she eats. She is getting TF with no N/V. Objective: Vital Signs Temp 98.1 F 09/08/18 07:38 Pulse 69 09/08/18 07:38 Resp 16 09/08/18 08:37 BP 85/38 09/08/18 07:38 Pulse Ox 98 09/08/18 07:38 Gen: NAD Abd: scant BS; soft; mildly tender diffusely; no guarding. Intake & Output 09/07/18 09/08/18 09/08/18 18:59 06:59 18:59 Intake Total 825 750 Output Total 1800 1800 Balance -975 -1050 Intake: Oral 300 750 Tube Feeding 495 Tube Feeding Flush Amount 30 Output: Urine [address] abd/pelvis images reviewed. There appears to be dilation of the SB proximally. There is contrast in distal decompressed SB. Assessment: Recurrent SBO. S/p LRYGB; s/p laparotomyx2 for same. There may be a functional as well as mechanical problem but recent CT suggest mechanical problem. Bactiuria--monitoring off abx. Plan: Cont Gtube feeds. Limit po intake to sips of clears. If not improved by Monday will consider additional imaging or possible endoscopy.
[2018-09-08] MEDS ORDERED: Ibuprofen ADULT LIQ* 600 MG/30 ML UDC G TUBE PRN (12:01)
[2018-09-08] MEDS: Sodium Phosphate ADULT ENEMA* 118 ml bottle PR SCH (16:22)
[2018-09-08] MEDS: D5W 1/2 NS KCl 20 Meq 1000 ML* 1,000 ML IV SCH (17:23)
[2018-09-08] MEDS: HYDROmorphone INJ1* 1 MG/ML SYRINGE IV PRN (18:22)
--- NOTE | 2018-09-08 19:53 | PN ---
Progress Note - Progress Note Date of Service: 09/08/18 Note: She was having increased bloating and pain after TF increase and so TF stopped. Although only 30ml residual was reported, after Gtube placed to drainage bag there is now more that 200ml in the bag. Report of bleeding from Gtube site from RN and swelling above tube also. On my assessment there is some dimpling of the skin at the Gtube site as well as granulation tissue surrounding the tube. Discussed with patient and mother. Will keep the tube to drainage tonight. Will need to ablate the granulation tissue and also size the Tati tube appropriately. AXR in am.
[2018-09-09] MEDS: HYDROmorphone INJ1* 1 MG/ML SYRINGE IV PRN ×5 (00:34→20:09)
[2018-09-09] MEDS: oxyCODONE/Acetamin 5/325 MG* TAB PO PRN ×5 (02:27→21:54)
[2018-09-09] MEDS: D5W 1/2 NS KCl 20 Meq 1000 ML* 1,000 ML IV SCH ×2 (05:39→17:59)
[2018-09-09] MEDS: ARIPiprazole TAB* 2 MG PO SCH (08:00)
[2018-09-09] MEDS: lamoTRIgine TAB(*) 100 MG PO SCH ×2 (08:01→21:53)
[2018-09-09] MEDS: Amphetamine MIXED SALT TAB* 10 MG TAB PO SCH ×2 (08:01→13:29)
[2018-09-09] MEDS: cloNIDine TAB* 0.1 MG PO SCH ×2 (08:01→21:53)
[2018-09-09] MEDS: Sodium Phosphate ADULT ENEMA* 118 ml bottle PR SCH (08:08)
--- NOTE | 2018-09-09 08:38 | RAD ---
HISTORY: SBO COMPARISONS: CT dated September 07, 2018 VIEWS: Frontal supine and upright views of the abdomen. FINDINGS: BOWEL: There is nondilated small bowel gas noted within the upper abdomen. The sigmoid colon is gas-filled and distended. There is large amount of stool within the proximal and transverse colon. A gastrostomy tube is noted. CALCULI: There are no abnormal calculi. BONES AND SOFT TISSUES: There are no osseous abnormalities. OTHER FINDINGS: The lung bases are clear. There is no subphrenic gas. IMPRESSION: 1. NONSPECIFIC BOWEL GAS PATTERN WITH NONDILATED SMALL BOWEL GAS NOTED IN THE UPPER ABDOMEN. 2. THERE IS GASEOUS DISTENTION OF THE SIGMOID COLON WITH A LARGE AMOUNT OF STOOL WITHIN THE ASCENDING AND TRANSVERSE COLON
--- NOTE | 2018-09-09 11:08 | PN ---
Progress Note - Progress Note Date of Service: 09/09/18 SOAP: Subjective: She reports no BMs/flatus, remains bloated. She reports normally takes Miralax BID and usually only has BM qod. Objective: Vital Signs Temp 97.6 F 09/09/18 04:53 Pulse 65 09/09/18 04:53 Resp 20 09/09/18 10:37 BP 86/52 09/09/18 04:56 Pulse Ox 98 09/09/18 04:53 Gen: NAD Abd: distended; soft; scant BS; Gtube with scant bilious o/p; mild tenderness. Intake & Output 09/08/18 09/09/18 09/09/18 18:59 06:59 18:59 Intake Total 1011 983 0 Output Total 1400 1000 500 Balance -389 -17 -500 Intake: IV Fluids 983 D5W 1/2 NS 20 meq KCL 983 Oral 0 0 0 Tube Feeding 786 Tube Feeding Flush Amount 225 Output: Urine 1400 1000 500 Assessment: Recurrent SBO. S/p LRYGB; s/p laparotomyx2 for same. There may be a functional as well as mechanical problem. Minimal output from Gtube that was put to drainage overnight. Bactiuria--monitoring off abx. Plan: Cap Gtube. Resume Miralax Limit po intake clears. If not improved by Monday will consider additional imaging or possible endoscopy.
[2018-09-09] MEDS: Polyethylene Glycol 3350* 17 GM PACKET PO SCH ×2 (11:37→21:54)
[2018-09-09] MEDS: QUEtiapine TAB* 300 MG PO SCH (21:54)
[2018-09-10] MEDS: oxyCODONE/Acetamin 5/325 MG* TAB PO PRN ×4 (04:20→18:25)
[2018-09-10] MEDS: HYDROmorphone INJ1* 1 MG/ML SYRINGE IV PRN ×4 (05:25→21:11)
[2018-09-10] MEDS: D5W 1/2 NS KCl 20 Meq 1000 ML* 1,000 ML IV SCH ×2 (05:26→16:19)
[2018-09-10] MEDS: cloNIDine TAB* 0.1 MG PO SCH ×2 (08:36→21:09)
[2018-09-10] MEDS: Amphetamine MIXED SALT TAB* 10 MG TAB PO SCH ×2 (08:36→13:11)
[2018-09-10] MEDS: ARIPiprazole TAB* 2 MG PO SCH (08:36)
[2018-09-10] MEDS: lamoTRIgine TAB(*) 100 MG PO SCH ×2 (08:37→21:10)
[2018-09-10] MEDS: Polyethylene Glycol 3350* 17 GM PACKET PO SCH ×2 (08:39→21:09)
[2018-09-10] MEDS: Sodium Phosphate ADULT ENEMA* 118 ml bottle PR SCH (08:41)
[2018-09-10] MEDS: Scopolamine 1.5 mg* PATCH TRANSDERM SCH (10:28)
[2018-09-10] MEDS ORDERED: PEG 3000 GI LAVAGE* 1 GALLON PO ONE (10:53)
--- NOTE | 2018-09-10 11:10 | PN ---
Progress Note - Progress Note Date of Service: 09/10/18 SOAP: Subjective: No flatus or BM. Reports hunger and wants to eat. Tolerated Miralax and clears yesterday and today without N/V. Objective: Vital Signs Temp 99.1 F 09/10/18 08:23 Pulse 70 09/10/18 08:23 Resp 16 09/10/18 10:27 BP 87/48 09/10/18 08:23 Pulse Ox 98 09/10/18 08:23 Gen: NAD Abd: less distended, soft and nontender; +BS Intake & Output 09/09/18 09/10/18 09/10/18 18:59 06:59 18:59 Intake Total 1271 880 Output Total 1000 1500 Balance 271 -620 Intake: IV Fluids 951 D5W 1/2 NS 20 meq KCL 951 Oral 320 880 Output: G Tube 200 Urine 800 1500 Assessment: Recurrent SBO. S/p LRYGB; s/p laparotomyx2 for same. There may be a functional as well as mechanical problem. She sounds to have colonic inertia and has been on Miralax routinely at home. She seems to be better, but no BM yet. Bactiuria--monitoring off abx. Plan: Rj today. will consult GI for opinion given recurrent symptoms.
--- NOTE | 2018-09-10 22:41 | CONS ---
CONSULTATION REPORT: DATE OF CONSULT: 09/10/18 REQUESTING PHYSICIAN: Dr. Ohara. INDICATION: Constipation. NARRATIVE: Ms. Verma is a 43-year-old female, well known to the GI service. The patient underwent Cm-en-Y gastric bypass surgery many years ago. Over the past year or so, she has had difficulties with recurrent small bowel obstructions, colonic dilatation, small bowel dilatation. She was admitted to the hospital most recently on 09/04/18 for abdominal pain and distention. Back in April, she did have both an EGD and a colonoscopy. They were both normal. Biopsies including that for celiac disease were normal. A month earlier, in April, she did have an upper GI and small bowel follow-through that was read as mild dilatation of the proximal and mid small bowel suggesting the possibility of a mild partial obstruction. She had a CT this admission on 09/07/18, which revealed dilated loops of bowel likely distention of the jejunojejunostomy, mild distention of the excluded stomach. The patient states that she will have bowel movements. She almost always has daily bowel movements and they are loose , then eventually they will stop and she will become constipated, she will stop passing gas, she will become distended, develop pain and then have to come to the emergency room. It has been a few days since her last bowel movement. She denies any flatus at this point. She is hungry. She has generalized abdominal discomfort. PAST MEDICAL HISTORY: Significant for bipolar disorder, her medications have been stable since the age of 14; morbid obesity; ADHD; kidney stone. PAST SURGICAL HISTORY: Includes appendectomy, cholecystectomy, multiple laparotomies, Cm-en-Y gastric bypass surgery. MEDICATIONS: Include: 1. Abilify. 2. Adderall. 3. Seroquel. 4. Clonidine. 5. Lamictal. ALLERGIES: To PENICILLIN and KEFLEX. FAMILY HISTORY: She denies any GI malignancies in the family. SOCIAL HISTORY: No tobacco. No alcohol. REVIEW OF SYSTEMS: Twelve systems were reviewed and other than that mentioned in the HPI were unremarkable. PHYSICAL EXAM: Temperature is 98.8, blood pressure is 97/60, pulse is 74, respiratory rate of 18. General: Well-appearing female, sitting up in bed, looks pleasant, comfortable and fluent. HEENT: Mucous membranes are moist without lesions, ulcers, or exudate. Neck is supple. Trachea is midline. Head is normocephalic, atraumatic. Heart: Regular rate and rhythm. Lungs: Clear to auscultation. Abdomen: Hypoactive bowel sounds. Soft. Diffuse tenderness. No rebound, no guarding. Skin is warm and dry. LABORATORY DATA: Of note, white count of 6.1, hemoglobin is 11.7, platelets are 263. CRP is less than 1. ASSESSMENT AND PLAN: This is a pleasant 43-year-old female with multiple emergency room and hospitalizations for either small bowel obstructions, colonic inertia, distention, gas, bloating, and pain. The patient has had multiple studies showing small bowel distention. She admits to having daily bowel movements, but they are soft and loose; however, then she will stop having bowel movements. The question is whether or not this is both small bowel and colonic causes of her symptoms, could she have inertia of both. The patient does have bowel movements with MiraLAX, which is reassuring. Currently , she is not having bowel movements. Surgical service is trying to prep her with GoLYTELY to clean out her colon that was seen to be full of stool on recent imaging. I think that this is reasonable. I do wonder if one of her medications could be a culprit here, although they have not changed in 12 years. I would like to check a thyroid hormone. We could try using Linzess, which I do not believe they have on formulary in the hospital, we could try that as an outpatient. Additionally, I would like to get a small bowel bacterial overgrowth breath test. I doubt that this is contributing to her obstructive type symptoms, but could explain the soft stool, gas and distention. I do not think a capsule endoscopy would give us much information at this point and I would worry about retention of the capsule. We could consider performing an MR enterography to further rule out any intrinsic luminal pathology of her small intestine, but her small bowel series was unremarkable. We will continue to follow along. [id number]/CPS #: [id number] FARHAN
[2018-09-11] MEDS: QUEtiapine TAB* 300 MG PO SCH ×2 (00:23→20:19)
[2018-09-11] MEDS: HYDROmorphone INJ1* 1 MG/ML SYRINGE IV PRN ×5 (00:24→17:29)
[2018-09-11] MEDS: D5W 1/2 NS KCl 20 Meq 1000 ML* 1,000 ML IV SCH ×2 (02:52→15:25)
[2018-09-11] MEDS: Amphetamine MIXED SALT TAB* 10 MG TAB PO SCH ×3 (08:08→15:36)
[2018-09-11] MEDS: lamoTRIgine TAB(*) 100 MG PO SCH ×2 (08:09→20:16)
[2018-09-11] MEDS: ARIPiprazole TAB* 2 MG PO SCH (08:09)
[2018-09-11] MEDS: Polyethylene Glycol 3350* 17 GM PACKET PO SCH ×2 (08:09→20:16)
[2018-09-11] MEDS: cloNIDine TAB* 0.1 MG PO SCH ×2 (08:10→20:19)
[2018-09-11] MEDS: Sodium Phosphate ADULT ENEMA* 118 ml bottle PR SCH (08:10)
--- NOTE | 2018-09-11 09:34 | PN ---
Progress Note - Progress Note Date of Service: 09/11/18 SOAP: Subjective: She has no flatus but had 2 BMs after taking Golyte. She continues to reports abdominal bloating and some pain. She has no N/V. Seen by Dr. Tsai yesterday. Objective: Vital Signs Temp 98.0 F 09/11/18 07:31 Pulse 72 09/11/18 07:31 Resp 18 09/11/18 08:07 BP 91/48 09/11/18 07:31 Pulse Ox 99 09/11/18 07:31 NAD Abd: distended; soft; min tenderness. Intake & Output 09/10/18 09/11/18 09/11/18 18:59 06:59 18:59 Intake Total 1007 1862 Output Total 2800 800 Balance 1007 -938 -800 Intake: IV Fluids 1007 982 D5W 1/2 NS 20 meq KCL 1007 982 Oral 880 Output: Urine 2800 800 Other: Date of Last Bowel 09/11/2018 Movement # Bowel Movements 1 Estimated Stool Amount Medium Laboratory Results - last 24 hr 09/10/18 16:34 TSH 3.39 Assessment: Recurrent SBO. S/p LRYGB; s/p laparotomyx2 for same. Seems functional as well as mechanical problem compounded by colonic inertia. She responded to Golytely. Bactiuria--monitoring off abx. Plan: Appreciate GI input. D/w Dr. Tsai. Will order MR enterography today with contrast po and via Gtube. He will plan on testing for SIBO as outpt. May resume diet after MRI if able.
--- NOTE | 2018-09-11 11:12 | RAD ---
HISTORY: sbo COMPARISONS: September 09, 2018 VIEWS: Frontal supine and upright views of the abdomen. FINDINGS: BOWEL: There is a nonspecific bowel gas pattern, with stable nondilated small bowel gas noted. There is a large amount of stool within the colon. A gastrostomy tube is noted. CALCULI: There are no abnormal calculi. BONES AND SOFT TISSUES: There are no osseous abnormalities. OTHER FINDINGS: The lung bases are clear. There is no subphrenic gas. IMPRESSION: STABLE NONDILATED SMALL BOWEL GAS IN THE UPPER ABDOMEN. LARGE AMOUNT OF STOOL WITHIN THE COLON. THE APPEARANCE IS SIMILAR TO THE PREVIOUS EXAMINATION.
[2018-09-11 15:28] LABS: EGFR Non-African American 106.1 (>60)
[2018-09-11] MEDS: oxyCODONE/Acetamin 5/325 MG* TAB PO PRN ×2 (15:31→20:18)
[2018-09-12] MEDS: HYDROmorphone INJ1* 1 MG/ML SYRINGE IV PRN ×3 (00:01→10:09)
[2018-09-12] MEDS: D5W 1/2 NS KCl 20 Meq 1000 ML* 1,000 ML IV SCH (05:07)
[2018-09-12] MEDS: ARIPiprazole TAB* 2 MG PO SCH (09:09)
[2018-09-12] MEDS: Polyethylene Glycol 3350* 17 GM PACKET PO SCH (09:09)
[2018-09-12] MEDS: cloNIDine TAB* 0.1 MG PO SCH (09:10)
[2018-09-12] MEDS: lamoTRIgine TAB(*) 100 MG PO SCH (09:10)
[2018-09-12] MEDS ORDERED: Glucagon* 1 MG VIAL ONE (10:23)
[2018-09-12] MEDS ORDERED: Gadoteridol* (CONTRAST) 279.3 MG/ML 10 ML IV ONE (10:35)
[2018-09-12] MEDS: Sodium Phosphate ADULT ENEMA* 118 ml bottle PR SCH (11:46)
--- NOTE | 2018-09-12 11:56 | PN ---
Progress Note - Progress Note Date of Service: 09/12/18 Note: S: Still having pain, but manageable. Would like to eat. Just came back from her MRI enterography. No BM past 1-2 days. O: Vital Signs - 8 hr 09/12/18 09/12/18 09/12/18 05:19 05:22 07:35 Temperature 98.2 F Pulse Rate 63 Respiratory 20 20 16 Rate Blood Pressure 92/43 (mmHg) O2 Sat by Pulse 97 Oximetry 09/12/18 09/12/18 09/12/18 08:00 10:09 11:46 Temperature Pulse Rate Respiratory 18 18 18 Rate Blood Pressure (mmHg) O2 Sat by Pulse Oximetry Intake and Output Last 24 Hours 09/10/18 09/11/18 09/12/18 09/13/18 06:59 06:59 06:59 06:59 Intake Total 2151 2869 2526 Output Total 2500 2800 2700 200 Balance -349 69 -174 -200 Weight 119 lb Intake: IV Fluids 951988 D5W 1/2 NS 20 meq KCL 951 1988 1875 Oral 1200 880 650 Output: G Tube 200 Urine 2300 2800 2700 200 Other: Estimated Void Medium Date of Last Bowel 09/11/2018 Movement # Bowel Movements 1 Estimated Stool Amount Medium # Voids 1 Gen: sitting up in bed; NAD Heart: reg Lungs: clear Abd: BS hypo; mildly distended and tympanitic (similar to previous); soft; mild diffuse tenderness MRI pend A: recurrent abd pain P: will resume diet; if tolerates, she may be able to be d/c'd home (later today ?) and complete the remainder of her GI w/u as an outpatient. Will d/w Dr. Ohara (covering for Dr. Whitley).
--- NOTE | 2018-09-12 12:41 | RAD ---
Indication: Intermittent small bowel obstruction. The patient was given 450 mL of Gastroview for oral contrast. Dynamic coronal images of the abdomen were obtained during intravenous injection of 11 mL of ProHance. Additionally, axial diffusion, axial T2, axial T1 and coronal T1-weighted images of the abdomen and pelvis were performed. No evidence of abnormally dilated loops of bowel are noted on the current study. No evidence of zone of transition or abnormally enhancing lesion is noted. There is stool throughout the colon. No hepatic lesions are noted. No evidence of biliary duct dilatation is noted. Previously described dilated loop of bowel anteriorly is not identified on the current exam. The urinary bladder, uterus and ovaries are unremarkable. IMPRESSION: No evidence of small bowel obstruction is noted. There is fecal stasis with a large amount of stool throughout the colon. No definite zone of transition or mucosal thickening is noted.
[2018-09-12] MEDS ORDERED: Amphetamine MIXED SALT TAB* 10 MG TAB ONE (14:23)
[2018-09-12 16:04] VITALS: BP 118/57
--- NOTE | 2018-09-13 07:25 | DS ---
AMENDED REPORT NOW INCLUDES DESIGNATED COSIGNER CC: Bre Boyer NP; Dr. Ash Tsai; Dr. Keyur Smith * DISCHARGE SUMMARY: DATE OF ADMISSION: 09/03/18 DATE OF DISCHARGE: 09/12/18 ATTENDING SURGEON: Alejandro Whitley MD * (DICTATED BY YINA HORTON) HOSPITAL COURSE: Please refer to admission history and physical for admission details. The patient was managed with IV fluids and pain control and underwent further workup including plain films and CT scan on 09/07/18, which showed a dilated small bowel loop at what was presumed to be the jejunojejunal anastomosis. There was also noted to be significant amount of stool in the colon and a nonobstructing left lower pole renal stone. Infectious Disease was consulted regarding her urine cultures. She was seen by Dr. Smith on . He did not feel that her current cultures represented a true urinary tract infection but he was concerned regarding possible outlet obstruction or anatomical abnormalities. A renal ultrasound was normal and postvoid residual was only 19 cc. She was also seen in consultation by Gastroenterology (Dr. Tsai) on 09/10/18, see separate consult. He did suggest an MRI enterography which was performed today with findings of no evidence of small bowel obstruction but fecal stasis with large amount of stool throughout the colon ( see separate report). As of the day of discharge, the patient was afebrile with stable vital signs and was tolerating a regular bariatric diet. Abdominal exam still revealed some mild distension and tympany as well as mild diffuse tenderness to palpation. IMPRESSION: Abdominal pain of undetermined etiology with associated colonic inertia. PLAN: Discharge home. She will resume her usual medications. She will contact the [facility] for followup with Dr. Whitley and also contact Dr. Tsai's office for further followup and additional testing as directed. YINA HORTON [id number]/CPS #: [id number] MTDD
[2018-09-13] MEDS ORDERED: Amphetamine MIXED SALT TAB* 10 MG TAB PO SCH (08:00)
== END 2018-09-12 17:05 | disposition home or self-care (01) | DRG 392 ==
LOC: ED 10:50 → SSU 17:09 → OBSVTOIN 09-05 15:51
PROVIDERS: ADMIT Surgery; ATTEND Surgery
DX: K59.8 Other specified functional intestinal disorders (principal); K56.609 Unspecified intestinal obstruction, unspecified as to partial versus complete obstruction; K56.7 Ileus, unspecified; I10 Essential (primary) hypertension; R10.9 Unspecified abdominal pain; F90.9 Attention-deficit hyperactivity disorder, unspecified type; N20.0 Calculus of kidney; F31.9 Bipolar disorder, unspecified; K44.9 Diaphragmatic hernia without obstruction or gangrene; F41.9 Anxiety disorder, unspecified; E86.0 Dehydration; K59.00 Constipation, unspecified; R82.71 Bacteriuria; R39.198 Other difficulties with micturition; Z87.442 Personal history of urinary calculi; Z90.49 Acquired absence of other specified parts of digestive tract; Z88.1 Allergy status to other antibiotic agents; Z88.0 Allergy status to penicillin; Z98.890 Other specified postprocedural states; Z82.49 Family history of ischemic heart disease and other diseases of the circulatory system; Z98.84 Bariatric surgery status; Z93.1 Gastrostomy status
CPT/HCPCS: 36415; 74019; 74177; 74183; 76770; 80053; 81003; 81015; 82306; 82565; 82607; 82746; 83605; 83690; 83735; 84100; 84425; 84443; 84446; 84520; 84702; 85025; 86140; 87077; 87086; 87186; 99284; A9270-GY; A9579; G0378; J1170; J1610; J1885; J2765; Q9967

== ENCOUNTER 2018-10-31 11:21 | Emergency (ER) | payer MEDICARE ==
--- NOTE | 2018-10-31 11:59 | ED ---
Abdominal Pain/Female - HPI Summary HPI Summary: The pt is a 43 y/o female presenting to [facility] c/o of abdominal distension since 2 days ago. She notes dyspnea, epigastric pain, constipation and facial numbness but denies N/V/D and loss of appetite. Her last bowel movement was 3 days ago. 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 The epigastric pain rated 9/10 in severity radiates to the back. She sees Dr. Whitley at [facility] and Dr Quintero at [place] for the same. One of her providers previously recommended a reversal of the by-pass surgery. Home Medications Medication Instructions Recorded Confirmed Type Calcium Carbonate CHEW TAB* [Tums*] 500 mg PO BID PRN 03/04/13 09/03/18 History cloNIDine TAB* [Catapres 0.1 MG 0.1 mg PO BID 07/02/15 09/03/18 History TAB*] Biotin 6,000 mcg PO DAILY 12/04/17 09/03/18 History QUEtiapine TAB* [Seroquel 300 MG 150 mg PO BEDTIME 12/04/17 09/03/18 History TAB*] busPIRone TAB* [Buspar TAB*] 10 mg PO TID PRN #30 MDD 3 12/27/17 09/03/18 Rx ARIPiprazole TAB* [Abilify 2 MG 2 mg PO DAILY 02/07/18 09/03/18 History TAB*] Cyanocobalamin TAB* [Vitamin B12 500 mcg PO DAILY 02/07/18 09/03/18 History TAB*] lamoTRIgine TAB(*) [Lamictal 150 mg PO BID 02/07/18 09/03/18 History TAB(*)] Ascorbic Acid TAB* [Vitamin C 500 mg PO DAILY 03/27/18 09/03/18 History TAB*] Polyethylene Glycol 3350 [Miralax] 17 gm PO BID #60 powd.pack 04/26/18 09/03/18 Rx Oxycodone HCl/Acetaminophen 1 each PO Q6HR PRN #20 tablet MDD 6 08/03/18 Rx [Percocet 5-325 mg Tablet] Dextroamphetamine/Amphetamine 20 mg PO BID MDD 2 09/03/18 09/04/18 History [Dextroamp-Amphetamin 20 mg Tab] - History of Current Complaint Chief Complaint: EDAbdPain Stated Complaint: hard to breath extended stomach tingly face Time Seen by Provider: 10/31/18 11:32 Hx Obtained From: Patient Onset/Duration: Lasting Days - 2 days, Still Present, Other - Gythd-or-fkwysuj Timing: Constant Severity Initially: Severe Severity Currently: Severe Pain Intensity: 9 Pain Scale Used: 0-10 Numeric Location: Epigastric Radiates: Yes Radiates to: Back Associated Signs and Symptoms: Positive: Back Pain, Constipation. Negative: Decreased Appetite, Nausea, Vomiting, Diarrhea Allergies/Adverse Reactions: Allergies Allergy/AdvReac Type Severity Reaction Status Date / Time cephalexin Allergy Unknown Verified 09/03/18 11:36 Reaction Details penicillin G Allergy Anaphylatic Verified 09/03/18 11:36 Shock Penicillins Allergy Unknown Verified 09/03/18 11:36 Reaction Details PMH/Surg Hx/FS Hx/Imm Hx Previously Healthy: No Endocrine/Hematology History: Denies: Hx Anticoagulant Therapy, Hx Blood Disorders, Hx Diabetes Cardiovascular History: Denies: Hx Hypertension, Hx Pacemaker/ICD Respiratory History: Denies: Hx Asthma GI History: Reports: Hx Hiatal Hernia, Hx Obstructive Bowel, Other GI Disorders Denies: Hx Gastroesophageal Reflux Disease History: Reports: Hx Kidney Stones Denies: Hx Dialysis, Hx Renal Disease Sensory History: Reports: Hx Contacts or Glasses Denies: Hx Hearing Aid Opthamlomology History: Reports: Hx Contacts or Glasses Neurological History: Denies: Other Neuro Impairments/Disorders Psychiatric History: Reports: Hx Anxiety, Hx Attention Deficit Hyperactivity Disorder, Hx Depression, Hx Bipolar Disorder, Other Psychiatric Issues/ Disorders - bipolar Denies: Hx Panic Disorder - Cancer History Cancer Type, Location and Year: None reported - Surgical History Surgery Procedure, Year, and Place: sumi n y 2014, CHOLECYSTECTOMY 2012, HERNIA , APPY, HERNIA, MULTIPLE SURGERIES FOR INTESTINAL OBSTRUCTION Hx Anesthesia Reactions: No - Immunization History Date of Tetanus Vaccine: UTD per pt Infectious Disease History: No Infectious Disease History: Denies: Traveled Outside the [place] in Last 30 Days - Family History Known Family History: Positive: Hypertension Negative: Cardiac Disease - Social History Occupation: Unemployed Lives: With Family Alcohol Use: None Hx Substance Use: No Substance Use Type: Reports: None Hx Tobacco Use: No Smoking Status (MU): Never Smoked Tobacco Have You Smoked in the Last Year: No Review of Systems Gastrointestinal: Negative - Loss of appetite , Other - Constipation , Abdominal distension Positive: Abdominal Pain - Epigastric . Negative: Vomiting, Diarrhea, Nausea Musculoskeletal: Other - Back pain Positive: Numbness - Facial All Other Systems Reviewed And Are Negative: Yes Physical Exam - Summary Physical Exam Summary: Constitutional: Well-developed, Well-nourished, Alert. (-) Distressed Skin: Warm, Dry HENT: Normocephalic; Atraumatic Eyes: Conjunctiva normal Neck: Musculoskeletal ROM normal neck. (-) JVD, (-) Stridor, (-) Tracheal deviation Cardio: Rhythm regular, rate normal, Heart sounds normal; Intact distal pulses; The pedal pulses are 2+ and symmetric. Radial pulses are 2+ and symmetric. (-) Murmur Pulmonary/Chest wall: Effort normal. (-) Respiratory distress, (-) Wheezes, (-) Rales, (+) Hyperventilation Abd: Soft, (+) epigastric tenderness, (+) Mild abdominal distension, PEG tube in place, (-) Guarding, (-) Rebound Musculoskeletal: (-) Edema Lymph: (-) Cervical adenopathy Neuro: Alert, Oriented x3 Psych: Mood and affect Normal Triage Information Reviewed: Yes Vital Signs On Initial Exam: Initial Vitals Temp Pulse Resp BP Pulse Ox 98.8 F 92 24 130/83 99 10/31/18 11:27 10/31/18 11:27 10/31/18 11:27 10/31/18 11:27 10/31/18 11:27 Vital Signs Reviewed: Yes Diagnostics - Vital Signs Vital Signs Temp Pulse Resp BP Pulse Ox 10/31/18 11:27 98.8 F 92 24 130/83 99 - Laboratory Result Diagrams: 10/31/18 12:11 10/31/18 12:11 Lab Statement: Any lab studies that have been ordered have been reviewed, and results considered in the medical decision making process. - CT Abd/Pel CT CT Interpretation Completed By: Radiologist Summary of CT Findings: IMPRESSION: 1. POST SURGICAL CHANGE TO THE UPPER GI TRACT WITH DECREASED DISTENTION OF THE GASTROJEJUNOSTOMY. 2. STATUS POST PERCUTANEOUS GASTROSTOMY. 3. STABLE LEFT RENAL CALCULUS. The ED physician reviewed this radiology report. Abdominal Pain Fem Course/Dx - Course Course Of Treatment: A 43 year-old F presents to the ED with a CC of abdominal distension since 2 days ago. She notes dyspnea, epigastric pain, constipation and facial numbness but denies N/V/D and loss of appetite. Her last bowel movement was 3 days ago. 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 A physical exam revealed epigastric pain, a mildly distended abdomen, a PEG tube in place and hyperventilation. An abd/pel CT reveals post-surgical change to the upper GI tract with decreased distension of the gastrojejunostomy s/p a percutaneous gastrostomy. There is also a stable L renal calculus. Labs revealed hypoglycemia. In the ED course, pt was given Morphine 4 mg IV, N.s 0.9% 1000 ml IV, Ondansetron 4 mg IV, Thiamin 100 mg IV , D5W 1000 ml IV, Dextrose 50% 25 mg IV and Iohexol 72 ml IV which improved the symptoms. I discussed the care of the patient with Dr Whitley who agreed to follow up with the pt in his office and recommended administration of Acarbose 25 mg PO t.i.d and a banana bag. Patient will be discharged with a final Dx of abd pain and hypoglyycemia. Pt is agreeable with this plan. Allergies noted. - Diagnoses Provider Diagnoses: Hypoglycemia, Abdominal pain - Provider Notifications Discussed Care Of Patient With: Alejandro Whitley - General surgeon Time Discussed With Above Provider: 15:10 Instructed by Provider To: MD Will See In ED - Dr. Whitley saw the pt in the ED and would like to follow up with her in his office in 3-5 days. He recommends giving Acarbose 25 mg PO (t.i.d) and a banana bag. Discharge - Sign-Out/Discharge Documenting (check all that apply): Patient Departure - DC - Discharge Plan Condition: Stable Disposition: HOME Prescriptions: Acarbose [Precose] 25 mg PO TID #42 tab Patient Education Materials: Non-diabetic Hypoglycemia (ED), Abdominal Pain (ED ) Referrals: Bre Boyer NP [Primary Care Provider] - Alejandro Whitley MD [Medical Doctor] - Additional Instructions: Follow up with Dr. Whitley at his office in 3-5 days Return to the emergency room in case of any new or worsening symptoms. - Billing Disposition and Condition Condition: STABLE Disposition: Home - Attestation Statements Document Initiated by Scribe: Yes Documenting Scribe: Mellisa Zapata Provider For Whom Scribe is Documenting (Include Credential): Dr. Aldo Tello MD Scribe Attestation: Mellisa Zuniga , scribed for Dr. Aldo Tello MD on 10/31/18 at 2134. Scribe Documentation Reviewed: Yes Provider Attestation: The documentation as recorded by the scribe, Mellisa Zapata accurately reflects the service I personally performed and the decisions made by , Dr. Aldo Tello MD Status of Scribe Document: Viewed
[2018-10-31] MEDS ORDERED: Morphine VIAL* 4 MG/ML VIAL (1 ml vial) IV ONE (12:04)
[2018-10-31] MEDS ORDERED: Ondansetron INJ* 2 MG/ML VIAL IV ONE (12:04)
[2018-10-31] MEDS ORDERED: NS 0.9% 1000 ML* 1,000 ML IV ONE (12:04)
--- OUTSIDE RECORDS SUMMARY | 2018-10-31 12:23 | XMS REPORT | Continuity of Care Document ---
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 [employer] Unavailable Payers Type Date Identification Numbers Payment Provider Subscriber Policy Number: [id number] Medicare - Bswny Umd Gabe Reed PayID: [id number] [address] [place] [address] Expires: 2018 Policy Number: Medicaid After Gabe Reed [id number] Medicare Group Name: 2 1 [address] PayID: [id number] [place] [address] Advance Directives Description No Information Available Problems [...] Tablets ER 0.1mg 60tab 1 tab by Bre Silveira ER /2017 12HR s mouth twice Storm, a day SERVICE REPRESENTATIVE-C Amphetamine-De 06/15 Active Tablets 20mg 60tab 1 tab by Bre Silveira xtroamphetamin s mouth twice Storm, e a day SERVICE REPRESENTATIVE-C Calcium 1200 11/17 Active Chewtabs [phone] Jono mg-Unit MD Yohannes Vitamin B-12 11/17 Active Tablets 500mcg 30tab 1 by mouth Bre Patterson. /2014 s every day [facility], Natural [facility]- Lamotrigine Active Tablets 150mg 60tab 1 by mouth Shawnti R. / s twice a day [facility] Quetiapine Active Tablets 300mg 30tab take one Shawnti R. Fumarate /0000 s tablet by Storm, mouth at [facility] bedtime Buspirone HCL Active Tablets 10mg 90tab take 1 Shawnti R. /0000 s tablet by Storm, mouth 3 [facility] times per day as needed for anxiety Aripiprazole Active Tablets 2mg 30tab take one Shawnti R. /0000 s tablet by Storm, mouth every [facility] morning Miralax Active Packet [id number] start 2 Unknown packets dissolved in water by mouth twice a day Potassimin Active Unknown /0000 Flintstones 11/17 Hx Chewtabs bid Longwnti R. Plus Iron , - SERVICE REPRESENTATIVE-C 06/15 Senna 07/06 Hx Tablets 8.6mg 60tab 1 po bid if Shawnti R. s needed for Storm, - constipation SERVICE REPRESENTATIVE-C 11/17 Hydrocodone-Ac 07/04 Hx Tablets 10-325mg 30tab 1 po q4hrs John wick s Tricia Roberts M.D. 11/17 Azithromycin 06/08 Hx Tablets 250mg 6tabs 2 by mouth 462 every day Mike, - day 1, then M.D. 06/30 1 by mouth /2014 every day days 2-5 Urea 03/31 Hx Cream 20% 85gm apply to 782.9 feet q hs Randell, - then put SERVICE REPRESENTATIVE-C 06/15 socks on wash feet before applying Lamotrigine 12/12 Hx [...] Medications - 06/27 Nystatin 06/27 Hx Cream [id number] 30gra use bid to t/GM m yeast rash P. Blegen, - on breasts M.D. 12/12 for up to weeks Nystatin 06/27 Hx Suspension 902138Ols QS 5 ml (1 t/ML teaspoon) P. Blegen, - swish and M.D. 12/12 swallow directed qid x 7 days (48 hours after symptoms resolve) Cortisporin 06/27 Hx Solution [id number] 1unit otic- 4 -1 s drops ears P. Blegen, - tid x 7 days M.D. 12/12 And 05/13 Hx Tablets daily Shawnti R. , - SERVICE REPRESENTATIVE-C 11/17 Tums 05/13 Hx Chewtabs 500mg Shawnti R. , - SERVICE REPRESENTATIVE-C 06/27 Ranitidine HCL 05/13 Hx Capsules 150mg 1 po bid Shawnti R. , - SERVICE REPRESENTATIVE-C 06/27 Amphetamine/De Hx Tablets 20mg 60tab 1 tablet by Jono xtroamphetamin /0000 s mouth twice [place], e - a day 06/15 Hydrocodone-Ac Hx Tablets 5-325mg Unknown etaminophen / - 11/17 Ciprofloxacin Hx Tablets 500mg Unknown HCL / - 11/17 Clonidine HCL Hx Tablets ER 0.1mg 1 tab by Unknown / 12HR mouth twice - a day 06/15 Immunizations CPT Code Status Date Vaccine Lot # [id number] Given 08/10/2018 Influenza Virus Vaccine, Quadrivalent, 3 Yr > [id number] Quad, Preserv Free [id number] Given 07/11/2018 Tdap (Adacel) [id number] Vital Signs Date Vital Result Comment 09/26/2018 11:22am Weight 127.00 lb Weight 57.607 kg BP Systolic 143 mmHg BP Diastolic 95 mmHg Heart Rate 80 /min Body Temperature 99.6 F O2 % BldC Oximetry 99 % 08/10/2018 10:58am BP Systolic 115 mmHg BP [...] Date Facility Test Result H/L Range Note CBC Auto Diff 09/27/2018 [facility] White Blood 7.5 10^3/uL 3.5-10.8 [phone] Count Red Blood Count 3.85 10^6/uL Low 4.00-5.40 Hemoglobin 12.0 g/dL 12.0-16.0 Hematocrit 35 % 35-47 Mean Corpuscular Volume 91 fL 80-97 Mean Corpuscular Hemoglobin 31 pg 27-31 Mean Corpuscular HGB Conc 34 g/dL 31-36 Red Cell Distribution Width 14 % 10.5-15 Platelet Count 261 10^3/uL 150-450 Mean Platelet Volume 7.5 fL 7.4-10.4 Abs Neutrophils 3.5 10^3/uL 1.5-7.7 Abs Lymphocytes 2.8 10^3/uL 1.0-4.8 Abs Monocytes 0.9 10^3/uL High 0-0.8 Abs Eosinophils 0.2 10^3/uL 0-0.6 Abs Basophils 0.1 10^3/uL 0-0.2 Abs Nucleated RBC 0 10^3/uL Granulocyte % 46.3 % 38-83 Lymphocyte % 37.4 % 25-47 Monocyte % 12.0 % High 0-7 Eosinophil % 2.9 % 0-6 Basophil % 1.4 % 0-2 Nucleated Red Blood Cells % 0 Iron & Iron Binding 09/27/2018 [facility] Iron 83 g /dL 50-212 Capacity [phone] Unsaturated Iron Binding < 345 g/dL Total Iron Binding Capacity 360 g/dL 250-450 Transferrin 257 mg/dL 203-362 % Iron Saturation 23 % 15-55 Laboratory test 09/27/2018 [facility] Ferritin 22.1 ng/mL 11-307 finding [phone] Vitamin B12 240 pg/mL [phone] 1 CBC Auto Diff 09/03/2018 [facility] White Blood 6.1 10^3/uL 3.5-10.8 [phone] Count Red Blood Count 3.81 10^6/uL Low 4.00-5.40 Hemoglobin 11.7 g/dL Low 12.0-16.0 Hematocrit 34 % Low 35-47 Mean Corpuscular Volume 90 fL 80-97 Mean Corpuscular Hemoglobin 31 pg 27-31 Mean Corpuscular HGB Conc 34 g/dL 31-36 Red Cell Distribution Width 13 % 10.5-15 Platelet Count 263 10^3/uL 150-450 Mean Platelet Volume 7.4 um3 7.4-10.4 Abs Neutrophils 3.1 10^3/uL 1.5-7.7 Abs Lymphocytes 2.1 10^3/uL 1.0-4.8 Abs Monocytes 0.7 10^3/uL 0-0.8 Abs Eosinophils 0.2 10^3/uL 0-0.6 Abs Basophils 0.1 10^3/uL 0-0.2 Abs Nucleated RBC 0 10^3/uL Granulocyte % 50.3 % 38-83 Lymphocyte % 33.7 % 25-47 Monocyte % 11.1 % High 0-7 Eosinophil % 3.7 % 0-6 Basophil % 1.2 % 0-2 Nucleated Red Blood Cells % 0.2 Comp Metabolic Panel 09/03/2018 [facility] Sodium 139 mmol/L 135-145 [phone] Potassium 3.7 mmol/L 3.5-5.0 Chloride 109 mmol/L 101-111 Co2 Carbon Dioxide 26 mmol/L 22-32 Anion Gap 4 mmol/L 2-11 Glucose 90 mg/dL 70-100 Blood Urea Nitrogen 11 mg/dL 6-24 Creatinine 0.59 mg/dL 0.51-0.95 BUN/Creatinine Ratio 18.6 8-20 Calcium 8.5 mg/dL Low 8.6-10.3 Total Protein 6.2 g/dL Low 6.4-8.9 Albumin 3.7 g/dL 3.2-5.2 Globulin 2.5 g/dL 2-4 Albumin/Globulin Ratio 1.5 1-3 Total Bilirubin 0.40 mg/dL 0.2-1.0 Alkaline Phosphatase 114 U/L High 34-104 Alt 11 U/L 7-52 Ast 12 U/L Low 13-39 Egfr Non- 112.3 >60 Egfr 135.9 >60 2 Laboratory test 09/03/2018 [facility] Lipase 28 U/L 11.0-82.0 finding [phone] C Reactive Protein < 1.00 mg/L <8.01 HCG < 0.60 mIU/mL 3 Lactic Acid 0.5 mmol/L 0.5-2.0 4 Urinalysis Profile 09/03/2018 [facility] Urine Appearance Cloudy [phone] Urine Specific Hopkins 1.028 1.010-1.030 Urine pH 5.0 5-9 Urine Urobilinogen Negative Negative Urine Ketones Negative Negative Urine Protein 2+(100 mg/dL) Negative Urine Leukocytes Trace Negative Urine Blood 3+ Negative Urine Nitrite Negative Negative Urine Bilirubin Negative Negative Urine Glucose Negative Negative Urine White Blood Cell 2+(11-20/hpf) Absent Urine Red Blood Cell 3+(>10/hpf) Absent Urine Bacteria Absent Absent Urine Calcium Oxalate Cryst Present Absent Urine Color Red Laboratory test 09/03/2018 [facility] Phosphorus 3.8 mg/dL 2.5-5.0 finding [phone] Magnesium 2.1 mg/dL 1.9-2.7 Urine Culture And 09/03/2018 [facility] Urine Culture SEE RESULT 5 Sensitivities [phone] BELOW CBC Auto Diff 07/28/2018 [facility] White Blood 10.7 10^3/uL 3.5-10 [phone] Count .8 Red Blood Count 3.70 10^6/uL Low 4.00-5.40 [...] Red Blood Cells % 0 Inr/Protime 07/28/2018 [facility] Inr 0.94 0.77- 1.02 [phone] Laboratory test 07/28/2018 [facility] Partial 30.8 seconds 26.0-36.3 finding [phone] Thrombo Time PTT Lactic Acid 1.2 mmol/L 0.5-2.0 6 Comp Metabolic Panel 07/28/2018 [facility] Sodium 140 mmol/L 135-145 [phone] Potassium 3.8 mmol/L 3.5-5.0 Chloride 108 mmol/L [...] Egfr Non- 119.3 >60 Egfr 144.4 >60 7 Laboratory test 07/28/2018 [facility] Magnesium 1.9 mg/dL 1.9-2.7 finding [phone] Amylase 43 U/L 29-103 Lipase 40 U/L 11.0-82.0 C Reactive Protein < 1.00 mg/L <8.01 HCG < 0.60 mIU/mL 8 Type & Screen 07/28/2018 [facility] Patient Blood O Positive [phone] Type Antibody Screen NEGATIVE Urinalysis Profile 07/28/2018 [facility] Urine Color Yellow [phone] Urine Appearance Clear Urine Specific Hopkins 1.010 1.010-1.030 Urine pH 6.0 5-9 Urine Urobilinogen Negative Negative Urine Ketones Negative Negative Urine Protein Negative Negative Urine Leukocytes 1+ Negative Urine Blood Negative Negative Urine Nitrite Negative Negative Urine Bilirubin Negative Negative Urine Glucose Negative Negative Urine White Blood Cell 1+(6-10/hpf) Absent Urine Red Blood Cell Trace(0-2/hpf) Absent Urine Bacteria 1+ Absent Urine Squamous Epithelial Cell Present Absent Urine Culture And 07/28/2018 [facility] Urine Culture SEE RESULT 9 Sensitivities [phone] BELOW Laboratory test 06/06/2018 [facility] Surgical SEE RESULT 10 finding [phone] Interface Order BELOW Laboratory test 06/04/2018 [facility] TSH (Thyroid 1.08 0.34- finding [phone] Stimulating mcIU/mL 5.60 Horm) CBC Auto Diff 05/28/2018 [facility] White Blood 6.9 10^3/uL 3.5-9 [phone] Count 0.8 Red Blood Count 3.94 10^6/uL Low [...] % 0 Iron & Iron Binding 05/28/2018 [facility] Iron 78 g /dL 50-212 Capacity [phone] Unsaturated Iron Binding 213 g/dL Total Iron Binding Capacity 291 g/dL 250-450 Transferrin 208 mg/dL 203-362 % Iron Saturation 27 % 15-55 Laboratory test 05/28/2018 [facility] Ferritin 57.4 ng/mL 11-307 finding [phone] CBC Auto Diff 04/25/2018 [facility] White Blood 7.7 10^3/uL 3.5-10.8 [phone] Count Red Blood Count 3.92 10^6/uL Low [...] Blood Cells % 0.1 Laboratory test 04/25/2018 [facility] Lactic Acid 0.9 mmol/L 0.5-2.0 11 finding [phone] Inr/Protime 04/25/2018 [facility] Inr 0.92 0.77- 1.02 [phone] Laboratory test 04/25/2018 [facility] Partial 31.1 seconds 26.0-36.3 finding [phone] Thrombo Time PTT Comp Metabolic 04/25/2018 [facility] Sodium 140 mmol/ L 139-145 Panel [phone] Potassium 3.7 mmol/L 3.5-5.0 Chloride 107 mmol/L [...] Egfr Non- 158.4 >60 Egfr 203.7 >60 12 Laboratory test 04/25/2018 [facility] Magnesium 2.1 mg/dL 1.9-2.7 finding [phone] Amylase 66 U/L 29-103 Lipase 60 U/L 11.0-82.0 C Reactive Protein < 1.00 mg/L < 5.00 13 Laboratory test 03/27/2018 [facility] Lactic Acid 1.9 mmol/L 0.5-2.0 14 finding [phone] CBC Auto Diff 03/27/2018 [facility] White Blood 8.5 10^3/uL 3.5-10.8 [phone] Count Red Blood Count 4.45 10^6/uL 4.0-5.4 [...] Blood Cells % 0.1 Comp Metabolic 03/27/2018 [facility] Sodium 137 mmol/ L Low 139-145 Panel [phone] Potassium 3.9 mmol/L 3.5-5.0 Chloride 104 mmol/L [...] Egfr Non- 112.9 >60 Egfr 145.2 >60 15 Laboratory test 03/27/2018 [facility] Lipase 38 U/L 11.0-82.0 finding [phone] C Reactive Protein < 1.00 mg/L < 5.00 16 HCG < 0.60 mIU/mL 17 Type & Screen 03/27/2018 [facility] Patient Blood O Positive [phone] Type Antibody Screen NEGATIVE Urinalysis Profile 03/27/2018 [facility] Urine Color Yellow [phone] Urine Appearance Cloudy Urine Specific Hopkins 1.027 1.010-1.030 Urine pH 5.0 5-9 Urine [...] Cell Present Absent Urine Culture And 03/27/2018 [facility] Urine Culture SEE RESULT 18 Sensitivities [phone] BELOW Laboratory test 02/19/2018 [facility] Ferritin 43.9 ng/mL 11-30 finding [phone] 7 Iron & Iron Binding 02/19/2018 [facility] Iron 44 g /dL Low 50-21 Capacity [phone] 2 Unsaturated Iron Binding 277 g/dL Total Iron Binding Capacity 321 g/dL 250-450 Transferrin 229 mg/dL 203-362 % Iron Saturation 14 % Low 15-55 CBC Auto Diff 02/19/2018 [facility] White Blood 7.3 10^3/uL 3.5-10.8 [phone] Count Red Blood Count 3.95 10^6/uL Low 4.0-5.4 [...] Nucleated Red Blood Cells % 0 Inr/Protime 02/15/2018 [facility] Inr 1.01 0.77- 1.02 [phone] Laboratory test 02/15/2018 [facility] Partial 32.1 seconds 26.0-36.3 finding [phone] Thrombo Time PTT Comp Metabolic 02/15/2018 [facility] Sodium 141 mmol/ L 139-145 Panel [phone] Potassium 3.2 mmol/L Low 3.5-5.0 Chloride 106 [...] Egfr Non- 139.9 >60 Egfr 179.9 >60 19 Laboratory test 02/15/2018 [facility] Lipase 46 U/L 11.0-82.0 finding [phone] C Reactive Protein < 1.00 mg/L < 5.00 20 Lactic Acid 1.0 mmol/L 0.5-2.0 21 CBC Auto Diff 02/15/2018 [facility] White Blood 8.0 10^3/uL 3.5-10.8 [phone] Count Red Blood Count 3.86 10^6/uL Low [...] Red Blood Cells % 0 Wound 02/07/2018 [facility] Wound/Misc SEE RESULT 22 Culture/Sensi [phone] Culture-Gram BELOW Stain Laboratory test 02/07/2018 [facility] MRSA/S. aureus SEE RESULT 23 finding [phone] Ssti PCR BELOW Basic Metabolic 02/07/2018 [facility] Sodium 136 mmol /L 133- Panel [phone] Potassium 3.7 mmol/L 3.5-5.0 Chloride 104 mmol/L 101-111 Co2 Carbon Dioxide 25 mmol/L 22-32 Anion Gap 7 mmol/L 2-11 Glucose 81 mg/dL 70-100 Blood Urea Nitrogen 12 mg/dL 6-24 Creatinine 0.40 mg/dL Low 0.51-0.95 BUN/Creatinine Ratio 30.0 High 8-20 Calcium 8.6 mg/dL 8.6-10.3 Egfr Non- 176.8 >60 Egfr 227.4 >60 24 Laboratory test 02/07/2018 [facility] C Reactive 27.31 mg/L High < 5.00 25 finding [phone] Protein CBC Auto Diff 02/07/2018 [facility] White Blood 10.6 3.5-10.8 [phone] Count 10^3/uL Red Blood Count 3.66 10^6/uL [...] Blood Cells % 0 Laboratory test 02/07/2018 [facility] Blood Culture SEE RESULT 26 finding [phone] BELOW Urinalysis Profile 01/28/2018 [facility] Urine Color Yellow [phone] Urine Appearance Clear Urine Specific Hopkins 1.036 High 1.010-1.030 Urine pH 6.0 5-9 Urine Urobilinogen Negative Negative Urine Ketones Negative Negative Urine Protein Negative Negative Urine Leukocytes Negative Negative Urine Blood Negative Negative Urine Nitrite Negative Negative Urine Bilirubin Negative Negative Urine Glucose Negative Negative Comp Metabolic 01/28/2018 [facility] Sodium 135 mmol/ L 133-145 27 Panel [phone] Potassium 3.3 mmol/L Low 3.5-5.0 Chloride 103 [...] Egfr Non- 119.9 >60 Egfr 154.2 >60 28 Laboratory test 01/28/2018 [facility] Magnesium 1.8 mg/dL Low 1.9-2.7 finding [phone] Amylase 65 U/L 29-103 Lipase 46 U/L 11.0-82.0 C Reactive Protein < 1.00 mg/L < 5.00 29 HCG < 0.60 mIU/mL 30 Lactic Acid 1.0 mmol/L 0.5-2.0 31 Inr/Protime 01/28/2018 [facility] Inr 0.95 0.77- 1.02 [phone] Laboratory test 01/28/2018 [facility] Partial 32.7 seconds 26.0-36.3 finding [phone] Thrombo Time PTT CBC Auto Diff 01/28/2018 [facility] White Blood 7.5 10^3/uL 3.5-10.8 [phone] Count Red Blood Count 4.94 10^6/uL 4.0-5.4 [...] Blood Cells % 0 Laboratory test 01/12/2018 [facility] Pathologist Review (SEE NOTE) 32 finding [phone] Cell Morphology 01/12/2018 [facility] Anisocytosis 2 + [phone] Elliptocyte 1+ CBC Auto Diff 01/12/2018 [facility] White Blood 7.0 10^3/uL 3.5-10.8 [phone] Count Red Blood Count 4.62 10^6/uL 4.0-5.4 [...] Blood Cells % 0 Laboratory test 01/12/2018 [facility] Ferritin 89.6 ng/mL 11-307 finding [phone] Vitamin D Total 25(Oh) 40.8 ng/mL 20-50 Iron & Iron Binding 01/12/2018 [facility] Iron 79 g /dL 50-212 Capacity [phone] Unsaturated Iron Binding 229 g/dL Total Iron Binding Capacity 308 g/dL 250-450 % Iron Saturation 26 % 15-55 Laboratory test 01/12/2018 [facility] Magnesium 2.0 mg/dL 1.9-2.7 finding [phone] Comp Metabolic 01/12/2018 [facility] Sodium 138 mmol/ L 133-145 Panel [phone] Potassium 3.6 mmol/L 3.5-5.0 Chloride 108 mmol/L [...] Egfr Non- 112.9 >60 Egfr 145.2 >60 33 Laboratory test 12/02/2017 [facility] Inr 1.00 0.77-1.02 finding [phone] CBC Auto Diff 12/02/2017 [facility] White Blood 14.6 High 3.5-10.8 [phone] Count 10^3/uL Red Blood Count 4.05 10^6/uL 4.0-5.4 Hemoglobin [...] Blood Cells % 0 Laboratory test 12/02/2017 [facility] Lactic Acid 1.2 mmol/L 0.5-2.0 34 finding [phone] Comp Metabolic 12/02/2017 [facility] Sodium 139 mmol/ L 133-145 Panel [phone] Potassium 3.5 mmol/L 3.5-5.0 Chloride 111 mmol/L [...] Egfr Non- 136.6 >60 Egfr 175.7 >60 35 Laboratory test 12/02/2017 [facility] Magnesium 1.7 mg/dL Low 1.9-2.7 finding [phone] Amylase 83 U/L 29-103 C Reactive Protein 3.62 mg/L < 5.00 36 HCG 3.04 mIU/mL 37 Laboratory test 12/02/2017 [facility] Lactic Acid 1.3 mmol/L 0.5-2.0 38 finding [phone] Arterial Blood 12/02/2017 [facility] O2 Device nasal cannula Gas [phone] Fio2 37 PH Arterial 7.35 7.35-7.45 Pco2 Arterial 35 mmHg 35-45 Po2 Arterial 153 mmHg High 80-100 O2 Saturation Arterial 99.5 % High 95-98 Base Excess Arterial -5.7 Low -2.0-2.0 39 Hco3 Arterial 20.5 mmol/L 19-31 Laboratory test 12/02/2017 [facility] Lactic Acid 2.1 mmol/L High 0.5-2.0 40 finding [phone] Urinalysis 12/01/2017 [facility] Urine Color Yellow Profile [phone] Urine Appearance Cloudy Urine Specific [place] 1.022 1.010-1.030 Urine pH 5.0 5-9 Urine Urobilinogen Negative Negative Urine Ketones Trace Negative Urine Protein 1+(30 mg/dL) Negative Urine Leukocytes Trace Negative Urine Blood 2+ Negative * * Negative 41 Urine Nitrite Negative Negative Urine Bilirubin Negative Negative Urine Glucose 3+(>=500 mg/dL) Negative Urine White Blood Cell Trace(0-5/hpf) Absent Urine Red Blood Cell Absent Absent Urine Bacteria Absent Absent Urine Squamous Epithelial Cell Present Absent Laboratory test 12/01/2017 [facility] Urine Culture SEE RESULT 42 finding [phone] BELOW CBC Auto Diff 12/01/2017 [facility] White Blood 12.2 10^3/uL High 3.5-8 [phone] Count 0.8 Red Blood Count 4.00 10^6/uL 4.0-5.4 Hemoglobin [...] Blood Cells % 0.1 Comp Metabolic Panel 12/01/2017 [facility] Sodium 134 mmol/L 133-145 [phone] Potassium 3.5 mmol/L 3.5-5.0 Chloride 105 mmol/L [...] Egfr Non- 115.1 >60 Egfr 148.1 >60 43 Laboratory test 12/01/2017 [facility] Lipase 41 U/L 11.0-82.0 44 finding [phone] Amylase 58 U/L 29-103 45 Iron & Iron Binding 11/22/2017 [facility] Iron 17 g /dL Low 50-212 Capacity [phone] Unsaturated Iron Binding 491 g/dL Total Iron Binding Capacity 508 g/dL High 250-450 % Iron Saturation 3 % Low 15-55 CBC No Diff 11/22/2017 [facility] White Blood 5.1 10^ 3/uL 3.5-10.8 [phone] Count Red Blood Count 3.89 10^6/uL Low 4.0-5.4 Hemoglobin 9.4 g/dL Low 12.0-16.0 Hematocrit 29 % Low 35-47 Mean Corpuscular Volume 76 fL Low 80-97 Mean Corpuscular Hemoglobin 24 pg Low 27-31 Mean Corpuscular HGB Conc 32 g/dL 31-36 Red Cell Distribution Width 15 % 10.5-15 Platelet Count 302 10^3/uL 150-450 Mean Platelet Volume 8 um3 7.4-10.4 Laboratory test 11/03/2015 [facility] Magnesium 1.9 mg/dL 1.9-2.7 finding [phone] Comp Metabolic 11/03/2015 [facility] Sodium 136 mmol/ L 133-145 Panel [phone] Potassium 3.4 mmol/L Low 3.5-5.0 Chloride 102 [...] Egfr Non- 109.8 >60 Egfr 141.2 >60 46 CBC Auto 11/03/2015 [facility] White Blood 12.5 10^3/ uL High 3.5-10.8 Diff [phone] Count Red Blood Count 3.96 10^6/uL Low [...] Red Blood Cells % 0 Laboratory test 11/01/2015 [facility] Amylase 32 U/L 29-103 finding [phone] Lipase 22 U/L 11.0-82.0 Creatine Kinase 46 U/L 10-223 C Reactive Protein 115.40 mg/L High < 5.00 47 Troponin I 0.01 ng/mL <0.03 48 Serum HCG Qualitative Negative Negative Comp Metabolic Panel 11/01/2015 [facility] Sodium 135 mmol/L 133-145 [phone] Chloride 104 mmol/L 101-111 Co2 Carbon Dioxide [...] Egfr Non- 118.7 >60 Egfr 152.7 >60 49 Potassium TNP mmol/L 3.5-5.0 Anion Gap TNP mmol/L 2-11 Ast TNP U/L 13-39 Urinalysis Profile 11/01/2015 [facility] Urine Color Yellow [phone] Urine Appearance Clear Urine Specific [place] 1.004 Low 1.010-1.030 Urine pH 7.0 5-9 Urine Urobilinogen Negative Negative Urine Ketones Negative Negative Urine Protein Negative Negative Urine Leukocytes Negative Negative Urine Blood Negative Negative Urine Nitrite Negative Negative Urine Bilirubin Negative Negative Urine Glucose Negative Negative CBC Auto Diff 11/01/2015 [facility] White Blood 10.5 10^3/uL 3.5-10.8 [phone] Count Red Blood Count 3.96 10^6/uL Low [...] Cells % 0.1 Laboratory test finding 11/01/2015 [facility] Inr 1.10 0.89-1.11 [phone] Potassium Redraw 3.1 mmol/L Low 3.5-5.0 Ast Redraw 149 U/L High 13-39 Comp Metabolic Panel 10/19/2015 [facility] Sodium 133 mmol/L 133-145 [phone] Potassium 4.0 mmol/L 3.5-5.0 Chloride 102 mmol/L [...] Egfr Non- 107.7 >60 Egfr 138.5 >60 50 CBC Auto Diff 10/19/2015 [facility] White Blood 10.4 10^3/uL 4.8-10.8 [phone] Count Red Blood Count 4.25 10^6/uL 4.0-5.4 [...] Red Blood Cells % 0 Laboratory test 08/11/2015 [facility] Surgical SEE RESULT 51 finding [phone] Pathology BELOW Laboratory test 08/11/2015 [facility] Clotest SEE RESULT 52 finding [phone] BELOW CBC Auto Diff 07/02/2015 [facility] White Blood 9.2 10^3/uL 4.8-10 [phone] Count .8 Red Blood Count 4.41 10^6/uL [...] Red Blood Cells % 0 Laboratory test 07/02/2015 [facility] Urine Culture SEE RESULT 53 finding [phone] BELOW Laboratory test 07/02/2015 [facility] Serum HCG Negative Negative finding [phone] Qualitative Comp Metabolic 07/02/2015 [facility] Sodium 136 mmol/ L 133-145 Panel [phone] Potassium 4.0 mmol/L 3.5-5.0 Chloride 104 mmol/L [...] Egfr Non- 103.9 >60 Egfr 133.6 >60 54 Urinalysis Profile 07/02/2015 [facility] Urine Color Yellow [phone] Urine Appearance Cloudy Urine Specific [place] 1.011 1.010-1.030 Urine pH 6.0 5-9 Urine Urobilinogen Negative Negative Urine Ketones Negative Negative Urine Protein Negative Negative Urine Leukocytes 1+ Negative Urine Blood Negative Negative Urine Nitrite Negative Negative Urine Bilirubin Negative Negative Urine Glucose Negative Negative Urine White Blood Cell 1+(6-10/hpf) Absent Urine Red Blood Cell Trace(0-2/hpf) Absent Urine Bacteria Absent Absent Urine Squamous Epithelial Cell Present Absent Laboratory test 06/08/2015 In House Lab Strep Screen NEG Neg finding (607)- - Laboratory test 04/28/2015 [facility] Hemoglobin A1c 5.3 % Less than 55 finding [phone] (Glyco HGB) 6.0 Lipid Profile 04/28/2015 [facility] Triglycerides 67 mg/dL 56 (Trig/Chol/HDL) [phone] Cholesterol 124 mg/dL 57 HDL Cholesterol 42.8 mg/dL 58 LDL Cholesterol 68 mg/dL 59 Laboratory test 04/28/2015 [facility] TSH (Thyroid 2.44 0.34-5.60 finding [phone] Stim Horm) ?IU/mL Laboratory test 03/31/2014 [facility] Fungal Cult ( SEE NOTE) 60 finding [phone] Skin/Hair/Nails Urine DIP 12/12/2013 In House Lab Leukocytes neg Neg (607)- - Urine Nitrites neg Neg Urine pH 5 5-6 Total Protein, Urine neg Neg Urine Glucose norm Norm Urine Ketones neg Neg Urobilinogen norm Norm Urine Bilirubin neg Neg Urine Blood neg Neg Specific Hopkins 1.020 1.01-1.02 Laboratory test 12/02/2013 [facility] TSH (Thyroid 1.93 0.34-5.60 finding [phone] Stimulating miu/mL Horm) CBC Auto Diff 12/02/2013 [facility] White Blood 9.9 4.8-10.8 [phone] Count 10^3/uL Red Blood Count 4.36 10^6/uL [...] Blood Cells % 0.1 CBC Auto 10/20/2013 [facility] White Blood 12.7 10^3/ uL High 4.8-10.8 Diff [phone] Count Red Blood Count 4.07 10^6/uL 4.0-5.4 [...] Blood Cells % 0.1 Affirm Vaginal Dna 10/20/2013 [facility] Affirm Vaginal (SEE NOTE) 61 Probe [phone] Dna Probe GC/Chlamydia 10/20/2013 [facility] GC/Chlamydia (SEE NOTE) 62 Amplified Rna [phone] Rna Urinalysis 10/20/2013 [facility] Urine Color Yellow [phone] Urine Appearance Clear Urine Specific Hopkins 1.019 1.010-1.030 Urine Esterase Negative Negative Urine Nitrate Negative Negative Urine Urobilinogen Negative E.U./dL Negative Urine Protein Negative mg/dL Negative Urine pH 5.5 5-9 Urine Blood 3+ Negative Urine Ketones Negative mg/dL Negative Urine Bilirubin Negative Negative Urine Glucose Negative mg/dL Negative Urine Microscopic 10/20/2013 [facility] Urine WBC 1+ (<10 None Seen [phone] /hpf) Urine RBC 3+ (>10 /hpf) None Seen Urine Epithelial Cells 1+ Squamous /hpf None Seen Bacteria Urine None Seen None Seen Type & Screen 10/20/2013 [facility] Patient Blood O Positive [phone] Type Antibody Screen NEGATIVE Laboratory test 10/20/2013 [facility] Magnesium 1.9 mg/dL 1.7-2.6 finding [phone] Lactic Acid 1.3 mmol/L 0.5-1.6 Lipase 33 U/L 22-51 C Reactive Protein 0.7 mg/dL High Less than 0.5 Comp Metabolic Panel 10/20/2013 [facility] Sodium 138 mmol/L 133-145 [phone] Potassium 3.7 mmol/L 3.5-5.0 Chloride 109 mmol/L [...] Egfr Non- 113.1 >60 Egfr 145.5 >60 63 Laboratory 10/20/2013 [facility] Serum Negative Negative 64 test finding [phone] CBC Auto Diff 10/20/2013 [facility] White Blood 12.0 10^3/uL High 4.8-10.8 [phone] Count Red Blood Count 4.46 10^6/uL 4.0-5.4 [...] Blood Cells % 0.1 Laboratory test finding 06/27/2013 In House Lab Strep Screen neg Neg (607)- - Urine DIP 05/13/2013 In House Lab Leukocytes ++ Neg (607)- - Urine Nitrites neg Neg Urine pH 5 5-6 Total Protein, Urine trace Neg Urine Glucose norm Norm Urine Ketones neg Neg Urobilinogen norm Norm Urine Bilirubin neg Neg Urine Blood trace Neg Specific [place] 1.015 1.01-1.02 1 Normal Range 180 to 914 Indeterminate Range 145 to 180 Deficient Range <145 2 Because ethnic data is not always readily [...] 15-29 5 Kidney failure <15 (or dialysis) 3 <5.0 Negative 5.0 - 25.0 Indeterminate (Repeat testing recommended after 72 hours) >25.0 Positive Perimenopausal women can display HCG levels of up to 20 mIU/mL 4 DES Severe Sepsis and Septic Shock Management Bundle Measure requires all lactic acids initially measuring >2.0 mmol/L be repeated. 5 SEE RESULT BELOW Name: GABE REED : [address]: Alejandro Whitley MD Acct: [id number] Unit: [id number] AGE: 43 Location: [facility] [id number] Re09/03/18 SEX: F Status: ADM Chan SPEC: [id number] RIGO: 09/03/[address] [facility] [address]: Genesis BRAN REQ: [id number] RECD: 09/03/18998 STATUS: LIZETH MYRICK DR: [facility] Bre Boyer CONSTRUCTION [employer]ERIALS TESTER _ SOURCE: URINE SPDESC: ORDERED: Urine Culture Procedure Result Reported Site Urine Culture Final 09/05/18- 0750 ML Organism 1 STREP DYSGALAC (STREP EQUISIM) [place] Count 25-50,000 (Moderate) CFU/ML Organism 2 ESBL ESCHERICHIA COLI [place] Count 10-25,000 (Moderate) CFU/ML Organism 3 NORMAL EDELMIRA [place] Count 25-50,000 (Moderate) CFU/ML ESBL Consistent with previous results. This isolate is an Extended Spectrum Beta-Lactamase Push Bench Operator Helper (ESBL) strain, and as such is considered resistant for all penicillins, cephalosporins and aztreonam. 2. ESBL ESCHERICHIA COLI M.I.C. RX --------- ------ Ampicillin >=32 R Cefazolin >=64 R Cefepime R Ceftriaxone R Ciprofloxacin >=4 R Gentamicin <=1 S Levofloxacin >=8 R Meropenem <=0.25 S Nitrofurantoin <=16 S Tetracycline >=16 R Pipercillin/Tazobactam <=4 S Trimethoprim/Sulfamethoxazole >=320 R Amoxicillin/Clavulanic Acid 4 S CONTINUED ON NEXT PAGE DEPARTMENT OF PATHOLOGY, [address] [place] [address] Anuj Solis M.D. Director [facility] # [id number] Patient: GABE REED [id number] (Continued) Specimen: [id number] Collected: 09/03/18-115 Received: 09/03/18 (Continued) Procedure Result Reported Site Urine Culture Final (continued) 09/05/18 075 2. ESBL ESCHERICHIA COLI (continued) M.I.C. RX --------- ------ Aztreonam R Contact the Microbiology Department for any additional antibiotic reporting. * ML - Main Lab . END OF REPORT DEPARTMENT OF PATHOLOGY, [address] [place] [address] Anuj Solis M.D. Director [facility] # [id number] 6 [facility] Severe Sepsis and Septic Shock Management Bundle [...] 5 Kidney failure <15 (or dialysis) 8 <5.0 Negative 5.0 - 25.0 Indeterminate (Repeat testing recommended after 72 hours) >25.0 Positive Perimenopausal women can display HCG levels of up to 20 mIU/mL 9 SEE RESULT BELOW Name: GABE REED : [address]: Hai Tran MD Acct: [id number] Unit: [id number] AGE: 43 Location: [place] [address] Re07/30/18 SEX: F Status: ADM IN SPEC: [id number] RIGO: 07/28/[address]: Umang Charles MD REQ: [id number] RECD: 07/28/18 STATUS: LIZETH MYRICK DR: Bre Boyer CONSTRUCTION [employer]ERIALS TESTER _ SOURCE: URINE SPDESC: ORDERED: Urine Culture Procedure Result Reported Site Urine Culture Final 07/30/18- 0831 ML Organism 1 ESBL ESCHERICHIA COLI [place] Count 50-75,000 (Many) CFU/ML ESBL E. COLI: [...] . END OF REPORT DEPARTMENT OF PATHOLOGY, [address] [place] [address] Anuj Solis M.D. Director [facility] # [id number] 10 SEE RESULT BELOW Name: GABE REED : [address]: Alejandro Whitley MD Acct: [id number] Unit: [id number] AGE: 43 Location: [place] [address]- Re06/05/18 Dis: 06/08/18 SEX: F Status: DIS IN SPEC: [id number] RIGO: 06/06/18- [facility] DR: Francheska Santana DO REQ: [id number] RECD: 06/06/18 STATUS: STEVO MYRICK DR: Alejandro Boyer CONSTRUCTION MATERIALS TESTER _ ORDERED: LEVEL 4/3 FINAL DIAGNOSIS 1. [...] CONTINUED ON NEXT PAGE DEPARTMENT OF PATHOLOGY, [address] [place] [address] Anuj Solis M.D. Director [facility] # [id number] RUN DATE: 06/08/18 [facility] LAB LIVE PAGE 2 Patient: GABE REED [id number] (Continued) GROSS DESCRIPTION (Continued) GROSS DESCRIPTION (Continued) entirely in one cassette. 3. The specimen is received in formalin labeled, Biopsy [place], and consists of a 0.4 x 0.2 x 0.1 cm nevarez-white irregular soft tissue fragment which is submitted entirely in one cassette. Signed by and Reported on: Genesis Alvarez MD 06/08/18 1542 END OF REPORT DEPARTMENT OF PATHOLOGY, [address] [place] [address] Anuj Solis M.D. Director [facility] # [id number] 11 [facility] Severe Sepsis and Septic Shock Management Bundle Measure requires all lactic acids initially measuring >2.0 mmol/L be repeated. 12 Because ethnic data is not always readily [...] 15-29 5 Kidney failure <15 (or dialysis) 13 Acute inflammation: >10.00 14 [facility] Severe Sepsis and Septic Shock Management Bundle Measure requires all lactic acids initially measuring >2.0 mmol/L be repeated. 15 Because ethnic data is not always [...] (or dialysis) 16 Acute inflammation: >10.00 17 <5.0 Negative 5.0 - 25.0 Indeterminate (Repeat testing recommended after 72 hours) >25.0 Positive Perimenopausal women can display HCG levels of up to 20 mIU/mL 18 SEE RESULT BELOW Name: GABE REED : [address]: Alejandro Whitley MD Acct: [id number] Unit: [id number] AGE: 42 Location: [place] [address] Re03/27/18 SEX: F Status: ADM IN SPEC: [id number] RIGO: 03/27/[address] [facility] [address]: Umang Charles MD REQ: [id number] RECD: 03/27/18 STATUS: LIZETH MYRICK DR: Bre Boyer CONSTRUCTION [employer]ERIALS TESTER _ SOURCE: URINE SPDESC: ORDERED: Urine Culture Procedure Result Reported Site Urine Culture Final 03/28/18- 1213 ML No Growth (<1,000 CFU/mL) * ML - Main Lab . END OF REPORT DEPARTMENT OF PATHOLOGY, [address] [place] [address] Anuj Solis M.D. Director [facility] # [id number] 19 Because ethnic data is not always [...] (or dialysis) 20 Acute inflammation: >10.00 21 [facility] Severe Sepsis and Septic Shock Management Bundle Measure requires all lactic acids initially measuring >2.0 mmol/L be repeated. 22 SEE RESULT BELOW Name: GABE REED : [address]: Don Bush MD Acct: [id number] Unit: [id number] AGE: 42 Location: ED Re02/07/18 SEX: F Status: DEP ER SPEC: [id number] RIGO: 02/07/18-[address] [facility] [address]: Don Bsuh MD REQ: [id number] RECD: 02/07/18 STATUS: RES [facility] DR: Bre Boyer CONSTRUCTION [employer]ERIALS TESTER _ SOURCE: ABDOMEN SPDESC: ORDERED: MRSA/SA SSTI, Culture Stain Procedure Result Reported Site MRSA/S. aureus SSTI PCR PENDING Wound/Misc Gram Stain Final 02/07/18- 1711 ML 4+ Neutrophils 4+ Nucleated Cells 3+ Gram Positive Cocci Intracellular Wound/Misc Culture PENDING * ML - Main Lab . END OF REPORT DEPARTMENT OF PATHOLOGY, [address] [place] [address] Anuj Solis M.D. Director [facility] # [id number] 23 SEE RESULT BELOW Name: REED,KYKD : [address]: Don Bush MD Acct: [id number] Unit: [id number] AGE: 42 Location: ED Re02/07/18 SEX: F Status: DEP ER SPEC: [id number] RIGO: 02/07/18-[address] [facility] [address]: Don Bush MD REQ: [id number] RECD: 02/07/18 STATUS: LIZETH [facility] DR: Bre Boyer CONSTRUCTION MATERIALS TESTER _ SOURCE: ABDOMEN SPDESC: ORDERED: MRSA/SA SSTI, Culture Stain COMMENTS: Verbal to [id number] by [id number] at 1823 on 02/07/18. Results read back [...] CONTINUED ON NEXT PAGE DEPARTMENT OF PATHOLOGY, [address] [place] [address] Anuj Solis M.D. Director [facility] # [id number] Patient: GABE REED [id number] (Continued) Specimen: [id number] Collected: 02/07/18-1619 Received: 02/07/18-1640 (Continued) Procedure Result Reported Site Wound/Misc Culture Final (continued) 02/09/18- 1029 1. STAPHYLOCOCCUS AUREUS (continued) M.I.C. RX --------- ------ * Minocycline - Deduced S Trimethoprim/Sulfamethoxazole <=10 S Vancomycin 1 S Imipenem-Deduced S * Ampicillin/Sulbactam-Deduced S Cefazolin-Deduced S * These antibiotics are not available in the [facility] Formulary Contact the Microbiology Department for any additional antibiotic reporting. * ML - Main Lab . END OF REPORT DEPARTMENT OF PATHOLOGY, [address] [place] [address] Anuj Solis M.D. Director [facility] # [id number] 24 Because ethnic data is not always readily [...] 15-29 5 Kidney failure <15 (or dialysis) 25 Acute inflammation: >10.00 26 SEE RESULT BELOW Name: GABE REED : [address]: Don Bush MD Acct: [id number] Unit: [id number] AGE: 42 Location: ED Re02/07/18 SEX: F Status: DEP ER SPEC: [id number] RIGO: 02/07/[address] [facility] [address]: Don Bush MD REQ: [id number] RECD: 02/07/18 STATUS: LIZETH MYRICK DR: Bre Boyer CONSTRUCTION [employer]ERIALS TESTER _ SOURCE: BLOOD,VENO SPDESC: ORDERED: Blood Cult Procedure Result Reported Site Aerobic Culture Bottle Final 02/12/18- 1431 ML No Growth Day 5 Anaerobic Culture Bottle Final 02/12/18- 1431 ML No Growth Day 5 * ML - Main Lab . END OF REPORT DEPARTMENT OF PATHOLOGY, [address] [place] [address] Anuj Solis M.D. Director [facility] # [id number] 27 RBC Frag/Micro 28 Because ethnic data is not always [...] 5 Kidney failure <15 (or dialysis) 29 Acute inflammation: >10.00 30 <5.0 Negative 5.0 - 25.0 Indeterminate (Repeat testing recommended after 72 hours) >25.0 Positive Perimenopausal women can display HCG levels of up to 20 mIU/mL 31 [facility] Severe Sepsis and Septic Shock Management Bundle Measure requires all lactic acids initially measuring >2.0 mmol/L be repeated. 32 Mild anisocytosis and macrocytosis noted. Mild reactive monocytosis noted. Clinical correlation and additional studies as warranted. Reviewed by Dr. Solis 33 Because ethnic data is not always readily [...] 15-29 5 Kidney failure <15 (or dialysis) 34 [facility] Severe Sepsis and Septic Shock Management Bundle Measure requires all lactic acids initially measuring >2.0 mmol/L be repeated. 35 Because ethnic data is not always readily [...] 15-29 5 Kidney failure <15 (or dialysis) 36 Acute inflammation: >10.00 37 <5.0 Negative 5.0 - 25.0 Indeterminate (Repeat testing recommended after 72 hours) >25.0 Positive Perimenopausal women can display HCG levels of up to 20 mIU/mL 38 [facility] Severe Sepsis and Septic Shock Management Bundle Measure requires all lactic acids initially measuring >2.0 mmol/L be repeated. 39 Reference ranges based on room air. 40 Critical Result LACT:2.1 Called to [id number] at: 03:32:43 by:[id number] Read back by:[id number] [facility] Severe Sepsis and Septic Shock Management Bundle Measure requires all lactic acids initially measuring >2.0 mmol/L be repeated. 41 *Ascorbic acid is present which may interfere with detection of blood. 42 SEE RESULT BELOW Name: GABE REED : [address]: John Ohara MD Acct: [id number] Unit: [id number] AGE: 42 Location: [facility] 351- Re12/02/17 SEX: F Status: ADM IN SPEC: [id number] RIGO: 12/01/17-[address] [facility] [address]: Turner Sharp MD REQ: [id number] RECD: 12/02/17 STATUS: LIZETH MYRICK DR: Bre Boyer CONSTRUCTION [employer]ERIALS TESTER _ SOURCE: URINE SPDESC: ORDERED: Urine Culture Procedure Result Reported Site Urine Culture Final 01/853 ML Organism 1 ESBL ESCHERICHIA COLI [place] Count 50-75,000 (Many) CFU/ML Organism 2 NORMAL EDELMIRA [place] Count 1-10,000 (Few) CFU/ML This isolate is an Extended Spectrum Beta-Lactamase Push Bench Operator Helper (ESBL) strain, and as such is considered [...] performed at Main Lab DEPARTMENT OF PATHOLOGY, [address] [place] [address] Anuj Solis M.D. Director [facility] # [id number] Patient: GABE REED [id number] (Continued) Specimen: [id number] Collected: 12/01/175483 Received: 12/02/17000 (Continued) Procedure Result Reported Site Urine Culture Final (continued) Contact the Microbiology Department for any additional antibiotic reporting. * ML - MAIN LAB (PSC1) . END OF REPORT * ML=Testing performed at Main Lab DEPARTMENT OF PATHOLOGY, [address] [place] [address] Anuj Solis M.D. Director [facility] # [id number] 43 Because ethnic data is not always readily [...] 15-29 5 Kidney failure <15 (or dialysis) 44 THE AMYLASE IS A VERBAL ORDER FROM ED 45 THE AMYLASE IS A VERBAL ORDER FROM ED 46 Because ethnic data is not always readily [...] 15-29 5 Kidney failure <15 (or dialysis) 47 Acute inflammation: >10.00 48 Reference Range and Interpretation: TnI (ng/mL) Interpretation Less Than 0.03 ng/mL Not supportive of diagnosis of MD 0.03 - 0.50 ng/mL Indeterminate: suggest serial studies if clinically indicated. Greater than 0.5 ng/mL Consistent with diagnosis of MD 49 Because ethnic data is not always readily [...] 15-29 5 Kidney failure <15 (or dialysis) 50 Because ethnic data is not always readily [...] 15-29 5 Kidney failure <15 (or dialysis) 51 SEE RESULT BELOW Name: GABE REED : [address]: Dixon Parry MD Acct: [id number] Unit: [id number] AGE: 40 Location: ENDO Re08/11/15 SEX: F Status: REG REF SPEC: [id number] RIGO: 08/11/15- SUBM DR: Dixon Parry MD REQ: [id number] RECD: 08/11/15-141 STATUS: STEVO MYRICK DR: Alejandro Boyer [employer]STRUCTION [employer]ERIAL[employer] TESTER _ ORDERED: H PYLORI IMM , LEVEL IV FINAL DIAGNOSIS Stomach, greater curvature, [...] hernia right groin age 14, lithotripsy 2011 [place]. For EGD POST-OPERATIVE DIAGNOSIS EGD - larynx [...] performed at Main Lab DEPARTMENT OF PATHOLOGY, [address] [place] [address] Anuj Solis M.D. Director [facility] # [id number] 52 SEE RESULT BELOW Name: GABE REED : [address]: Dixon Parry MD Acct: [id number] Unit: [id number] AGE: 40 Location: ENDO Re08/11/15 SEX: F Status: REG REF SPEC: [id number] RIGO: 08/11/15-[address] [facility] [address]: Dixon Parry MD REQ: [id number] RECD: 08/11/15-1011 STATUS: LIZETH MYRICK DR: Bre Boyer NP _ SOURCE: GAS ANTRUM SPDESC: ORDERED: Clotest Procedure Result Verified Site Clotest Final 08/12/15- 734 ML Clotest Positive * ML - MAIN LAB (PSC1) . END OF REPORT * ML=Testing performed at Main Lab DEPARTMENT OF PATHOLOGY, [address] [place] [address] Anuj Solis M.D. Director [facility] # [id number] 53 SEE RESULT BELOW Name: GABE REED : [address]: Bjorn Blunt MD Acct: [id number] Unit: [id number] AGE: 40 Location: [place] [address] Re07/02/15 Dis: 07/03/15 SEX: F Status: DIS Chan SPEC: [id number] RIGO: 07/02/15-[address] [facility] [address]: Annetta Hodges MD REQ: [id number] RECD: 07/02/15 STATUS: LIZETH MYRICK DR: [facility] Bre Boyer NP _ SOURCE: URINE SPDESC: ORDERED: Urine Culture Procedure Result Verified Site Urine Culture Final 07/04/15- 1131 ML Organism 1 NORMAL EDELMIRA [place] Count >100,000 (Many) CFU/ML * ML - MAIN LAB (PSC1) . END OF REPORT * ML=Testing performed at Main Lab DEPARTMENT OF PATHOLOGY, [address] [place] [address] Anuj Solis M.D. Director [facility] # [id number] 54 Because ethnic data is not always readily [...] 15-29 5 Kidney failure <15 (or dialysis) 55 Therapeutic target for the treatment of diabetes Mellitus patients is <7% HBA1C, and in selective patients <6.0%.Please refer to [place] [employer] Diabetic care guidelines for further information. 56 Desirable <150 Borderline high 150-199 High 200-499 Very High >500 57 Desirable <200 Borderline high 200-239 High >239 58 Low <40 Desirable: 40-60 High: >60 59 Desirable: <100 mg/dL Near Optimal: 100-129 mg/dL Borderline High: 130-159 mg/dL High: 160-189 mg/dL Very High: >189 mg/dL 60 RUN DATE: 04/28/14 [facility] LAB LIVE PAGE 1 RUN TIME: 12[address] [place], [place] [address] Specimen Inquiry Name: GABE REED : [address]: Della Ferraro NP Acct: [id number] Unit: [id number] AGE: 38 Location: [facility] Re03/31/14 SEX: F Status: REG REF SPEC: [id number] RIGO: 03/31/14-[address]: Della Ferraro NP REQ: [id number] RECD: 04/01/14-1246 STATUS: COMP _ SOURCE: SKIN SCRAP SPDESC: ORDERED: Fungal Cult Yanelis QUERIES: Medent Number [id number] Procedure Result Verified Site Fungal Cult Skin/Hair/Nails Final 04/28/14- 1228 ML Fungal Culture No Growth of Mycotic Organisms 3 weeks No growth in 4 weeks END OF REPORT * ML=Testing performed at Main Lab DEPARTMENT OF PATHOLOGY, [facility] [address] [place], [place] [address] Anuj Solis M.D. Director [facility] # [id number] 61 RUN DATE: 10/21/13 [facility] LAB LIVE PAGE 1 RUN TIME: 1124 [facility] [address] [place], [place] [address] Specimen Inquiry Name: GABE REED : [address]: Foster Gonzáles DO Acct: [id number] Unit: [id number] AGE: 38 Location: ED Re10/20/13 SEX: F Status: DEP ER SPEC: [id number] RIGO: 10/20/13-[address] [facility] [address]: Foster Gonzáles DO REQ: [id number] RECD: 10/20/132843 STATUS: LIZETH MYRICK DR: Bre Boyer NP _ SOURCE: VAGINAL SPDESC: [...] performed at Main Lab DEPARTMENT OF PATHOLOGY, [facility] [place] [address] Anuj Solis M.D. Director [facility] Permit #[id number] 62 RUN DATE: 10/22/13 [facility] LAB LIVE PAGE 1 RUN TIME: 1231 [facility] [address] [place] [address] Specimen Inquiry Name: GABE REED : [address]: Foster Gonzáles DO Acct: [id number] Unit: [id number] AGE: 38 Location: ED Re10/20/13 SEX: F Status: DEP ER SPEC: [id number] RIGO: 10/20/13-[address] [facility] [address]: Foster Gonzáles DO REQ: [id number] RECD: 10/20/13763 STATUS: LIZETH MYRICK DR: Bre Boyer [employer]STRU[employer] TESTER _ SOURCE: ENDOCERVIX SPDESC: ORDERED: GC/Chlam RNA [...] result may have adverse psychosocial impact, the [facility] recommends retesting by a method using an [...] performed at Main Lab DEPARTMENT OF PATHOLOGY, [facility] [place] [address] Anuj Solis M.D. Director [facility] Permit #[id number] RUN DATE: 10/22/13 [facility] LAB LIVE PAGE 2 RUN TIME: 1231 [facility] [address] [place], [place] [address] Specimen Inquiry Patient: GABE REED [id number] (Continued) Specimen: [id number] Collected: 10/20/13 Received: 10/20/131500 (Continued) Procedure Result Verified Site GC (N. gonorrhoeae) RNA Final (continued) 10/22/13- 1230 N. gonorrhoeae are derived from high prevalence populations. Positive results in low prevalence populations should be interpreted carefully with the understanding that the likelihood of a false positive may be higher than a true positive. END OF REPORT * ML=Testing performed at Main Lab DEPARTMENT OF PATHOLOGY, [address] [place] [address] Anuj Solis M.D. Director [facility] Permit #[id number] 63 Because ethnic data is not always readily [...] 15-29 5 Kidney failure <15 (or dialysis) 64 This test detects intact HCG only and is indicated for the early detection of . Procedures Description No Information Available Encounters Type Date Location Provider Dx Diagnosis Office Visit 08/10/2018 Main Office Jono Sheffield, F31.81 Bipolar II disorder 11:00a F90.0 Attn-defct hyperactivity disorder, predom inattentive type Z23 Encounter for immunization Office Visit 07/11/2018 10:30a Main Office Jono Sheffield F31.81 Bipolar II MD disorder F90.0 Attn-defct hyperactivity disorder, predom inattentive type Z23 Encounter for immunization Office Visit 06/15/2018 2:30p Main Office Jono Sheffield F31.81 Bipolar II MD disorder F90.0 Attn-defct hyperactivity disorder, predom inattentive type Office Visit 11/17/2015 2:15p Main Office Bre Silveira R03.0 Elevated Storm, SERVICE REPRESENTATIVE-C blood-pressure reading, w/o diagnosis of htn Office Visit 07/04/2015 9:30a Main Office John Mike M.D. 592.0 Calculus Of Kidney Office Visit 06/08/2015 11:30a Main Office John Mike M.D. 462 Pharyngitis Acute Office Visit 04/28/2015 11:30a Main Office Bre Silveira 278.00 Obesity Unspec Storm, SERVICE REPRESENTATIVE-C Office Visit 03/31/2014 4:45p Main Office Della Ferraro 782.9 Skin & Integumentary SERVICE REPRESENTATIVE-C Tissue Other Symptoms Office Visit 12/12/2013 8:30a Main Office Leny Lozada 780.4 Dizziness & Fuentes Hester Giddiness Office Visit 06/27/2013 12:00p Main Office Jennifer Stover 112.0 Candidiasis Mouth Fuentes Cowan 782.1 Rash & Other Nonspec Skin Eruption Office Visit 05/13/2013 1:30p Main Office Bre Silveira V70.0 Examination General Storm, SERVICE REPRESENTATIVE-C Medical Routine AT Health Care Facility Plan of Treatment 09/26/2018 - Bre Boyer, FROILAN-[id number] Ileus, unspecifiedComments:can try FLEETS at home. ER if sx worsen Continue to follow with GI
[2018-10-31 12:27] LABS: ABS Basophils 0.1 10^3/ul (0-0.2); ABS Eosinophils 0.2 10^3/ul (0-0.6); ABS Lymphocytes 3.2 10^3/ul (1.0-4.8); ABS Monocytes 0.8 10^3/ul (0-0.8); ABS Neutrophils 2.7 10^3/ul (1.5-7.7); ABS Nucleated RBC 0 10^3/ul; Eosinophil % 2.7 %; Hematocrit 36 % (35-47); Lymphocyte % 45.7 %; Mean Corpuscular HGB Conc 34 g/dl (31-36); Mean Corpuscular Hemoglobin 31 pg (27-31); Mean Corpuscular Volume 91 fL (80-97); Mean Platelet Volume 7.6 fL (7.4-10.4); Nucleated Red Blood Cells % 0; Platelet Count 266 10^3/ul (150-450); Red Blood Count 3.92 10^6/ul (4.00-5.40); Red Cell Distribution Width 14 % (10.5-15)
[2018-10-31 12:56] LABS: EGFR Non-African American 132.9 (>60)
[2018-10-31] MEDS ORDERED: Dextrose 50% Syringe 50 ML* 25 GM/50 ML SYRINGE ONE (13:16)
[2018-10-31] MEDS ORDERED: Dextrose 50% Syringe 50 ML* 25 GM/50 ML SYRINGE IV PUSH ONE (13:23)
[2018-10-31] MEDS ORDERED: Iohexol 300* (CONTRAST) 10 ML SDV IV ONE (13:33)
[2018-10-31] MEDS ORDERED: D5W 1/2 NS 40 Meq KCL 1000 ML* 1,000 ML IV SCH (14:00)
[2018-10-31] MEDS ORDERED: Thiamine IV 100 MG, Folic Acid IV* 1 MG, Multiple Vitamin IV ADULT* 10 ML in NS 0.9% 10... IV ONE (15:21)
[2018-10-31 18:23] VITALS: BP 125/68
== END 2018-10-31 18:21 | disposition home or self-care (01) ==
LOC: ED 11:21
DX: E16.2 Hypoglycemia, unspecified (principal); R10.13 Epigastric pain; Z87.442 Personal history of urinary calculi; Z88.0 Allergy status to penicillin; F90.9 Attention-deficit hyperactivity disorder, unspecified type; F32.9 Major depressive disorder, single episode, unspecified
CPT/HCPCS: 36415; 74177; 80053; 83605; 83690; 85025; 86140; 96361; 96374; 96375; 99282; J2270; J2405; J3411; Q9967

== ENCOUNTER 2022-04-04 15:43 | Observation (INO) ==
[2022-04-04 16:19] LABS: ABS Basophils 0.1 10^3/ul (0-0.2); ABS Eosinophils 0.2 10^3/ul (0-0.6); ABS Lymphocytes 2.2 10^3/ul (1.0-4.8); ABS Monocytes 0.9 10^3/ul (0-0.8); ABS Neutrophils 5.1 10^3/ul (1.5-7.7); Eosinophil % 2.2 %; Hematocrit 36 % (35-47); Lymphocyte % 26.3 %; Mean Corpuscular HGB Conc 33 g/dL (31-36); Mean Corpuscular Hemoglobin 32 pg (27-31); Mean Corpuscular Volume 97 fL (80-97); Mean Platelet Volume 7.5 fL (7.4-10.4); Nucleated Red Blood Cells % 0.1; Platelet Count 240 10^3/uL (150-450); Red Blood Count 3.78 10^6 /uL (3.70-4.87); Red Cell Distribution Width 14 % (10-15); White Blood Count 8.5 10^3/uL (3.5-10.8)
[2022-04-04] MEDS ORDERED: Ondansetron 4 mg VIAL 2 MG/ML 2 ml VIAL IV ONE (16:39)
[2022-04-04] MEDS ORDERED: Lactated Ringers 1000 ml BAG 1,000 ML IV ONE (16:41)
[2022-04-04 16:45] LABS: Urine Appearance Cloudy; Urine Bilirubin Negative (Negative); Urine Blood Negative (Negative); Urine Color Yellow; Urine Glucose Negative (Negative); Urine Ketones Negative (Negative); Urine Nitrite Negative (Negative); Urine Protein Negative (Negative); Urine Specific Gravity 1.026 (1.002-1.030); Urine Urobilinogen Negative (Negative)
[2022-04-04] MEDS ORDERED: Thiamine 100 MG/ML 2 ml VIAL 100 MG, Folic Acid IV 1 MG, Multiple Vitamin IV ADULT 10 M... IV ONE (16:45)
[2022-04-04 16:49] LABS: Urine Bacteria 1+ (Absent); Urine Red Blood Cell 3+(>10/hpf) (Absent); Urine Squamous Epithelial Cell Present (Absent); Urine White Blood Cell 2+(11-20/hpf) (Absent)
[2022-04-04 17:04] LABS: ALT 13 U/L (7-52); AST 14 U/L (13-39); Albumin 3.9 g/dL (3.2-5.2); Albumin/Globulin Ratio 1.8 (1-3); Alkaline Phosphatase 102 U/L (35-149); Anion Gap 5 mmol/L (2-11); Blood Urea Nitrogen 13 mg/dL (6-24); C Reactive Protein < 1.00 mg/L (<8.01); CO2 Carbon Dioxide 24 mmol/L (22-32); Calcium 8.3 mg/dL (8.6-10.3); Chloride 108 mmol/L (101-111); Globulin 2.2 g/dL (2-4); Glucose 64 mg/dL (70-100); Lipase 65 U/L (11.0-82.0); Potassium 3.9 mmol/L (3.5-5.0); Sodium 137 mmol/L (135-145); Total Protein 6.1 g/dL (6.4-8.9)
[2022-04-04] MEDS ORDERED: Dextrose 50% Syringe 50 ml 25 GM/50 ML SYRINGE IV PUSH ONE (17:21)
[2022-04-04] MEDS ORDERED: Morphine 2 MG/ML SYRINGE IV ONE (17:52)
[2022-04-04] MEDS: Ondansetron 4 mg VIAL 2 MG/ML 2 ml VIAL IV PRN (21:48)
[2022-04-04] MEDS: Magnesium Hydroxide LIQ 30 ML UDC PO SCH (22:57)
[2022-04-04] MEDS: Lactated Ringers 1000 ml BAG 1,000 ML IV SCH (23:38)
[2022-04-05] MEDS: Ondansetron 4 mg VIAL 2 MG/ML 2 ml VIAL IV PRN ×2 (04:53→09:21)
[2022-04-05] MEDS: Amphetamine MIXED SALT 10mgTAB PO SCH ×2 (07:39→12:47)
[2022-04-05] MEDS: Magnesium Hydroxide LIQ 30 ML UDC PO SCH ×2 (09:20→20:58)
[2022-04-05] MEDS: HYDROmorphone 0.5 MG/0.5 ML SYRINGE IV SLOW PU PRN (16:37)
[2022-04-05] MEDS: Lactated Ringers 1000 ml BAG 1,000 ML IV SCH (19:48)
[2022-04-05] MEDS: Acetaminophen IV 1 GM/100ML 100 ML IV PRN (23:28)
[2022-04-06] MEDS: HYDROmorphone 0.5 MG/0.5 ML SYRINGE IV SLOW PU PRN (00:52)
[2022-04-06 05:07] LABS: ABS Eosinophils 0.2 10^3/ul (0-0.6); ABS Lymphocytes 1.7 10^3/ul (1.0-4.8); ABS Monocytes 0.6 10^3/ul (0-0.8); ABS Neutrophils 3.4 10^3/ul (1.5-7.7); Eosinophil % 3.1 %; Hematocrit 31 % (35-47); Hemoglobin 10.7 g/dL (12.0-16.0); Lymphocyte % 28.5 %; Mean Corpuscular HGB Conc 34 g/dL (31-36); Mean Corpuscular Hemoglobin 33 pg (27-31); Mean Corpuscular Volume 96 fL (80-97); Mean Platelet Volume 7.8 fL (7.4-10.4); Platelet Count 190 10^3/uL (150-450); Red Blood Count 3.27 10^6 /uL (3.70-4.87); Red Cell Distribution Width 14 % (10-15)
[2022-04-06 05:21] LABS: Calcium 8.1 mg/dL (8.6-10.3); Potassium 4.2 mmol/L (3.5-5.0)
[2022-04-06] MEDS: Lactated Ringers 1000 ml BAG 1,000 ML IV SCH (07:32)
[2022-04-06] MEDS: Amphetamine MIXED SALT 10mgTAB PO SCH ×2 (07:32→14:46)
[2022-04-06] MEDS: Ondansetron 4 mg VIAL 2 MG/ML 2 ml VIAL IV PRN (08:36)
[2022-04-06] MEDS: Magnesium Hydroxide LIQ 30 ML UDC PO SCH (08:36)
[2022-04-06] MEDS: Acetaminophen IV 1 GM/100ML 100 ML IV PRN (08:36)
[2022-04-06] MEDS ORDERED: Sulfamethox/Trimethoprim DS TAB 800/160 mg PO SCH (11:00)
[2022-04-06 11:26] VITALS: BP 111/67
== END 2022-04-06 15:05 | disposition home or self-care (01) ==
LOC: ED 15:43 → EDHOLD 15:43 → SSU 22:05
PROVIDERS: ADMIT Surgery; ATTEND Surgery